=== PATIENT | male | born 1965 | race Caucasian/White ===

== ENCOUNTER → 2016-08-06 | Outpatient (CLI) | payer BC ==
--- NOTE | 2016-08-06 18:21 | Diagnostic Imaging Report ---
INDICATION: Low back pain with left leg numbness and involuntary movements of the left leg MRI lumbar spine obtained without IV contrast. There is no previous study for comparison. The lumbar vertebrae are normal in height and alignment. There is no space-occupying lesion in the marrow or evidence of marrow edema. The conus medullaris appears unremarkable. At L5-S1, there is no disc space narrowing or bulge or herniation or canal or neuroforaminal stenosis. At L4-5, there is some degree of facet degenerative change bilaterally. There is disc desiccation without significant disc bulge or herniation. There is mild neuroforaminal narrowing secondary to facet joint hypertrophy, more prominent on the left side. At L3-4, there is also disc desiccation without disc herniation or bulge or canal narrowing. There is mild facet degenerative change at L3-4 without significant neuroforaminal narrowing. At L2-3, there is also some degree of disc desiccation without disc herniation or bulge. There is no canal or neuroforaminal stenosis. At L1-2 and T12-L1, imaging is unremarkable. IMPRESSION: There is disc desiccation at multiple levels as above with no evidence of disc herniation or significant disc bulging. There is facet degenerative change most prominent at L4-5, this does cause some degree of neuroforaminal narrowing at L4-5, more prominent on the left. There are no other significant findings. Dictated by: Dictated on workstation # [id number]
== END ==
LOC: RAD 16:48
PROVIDERS: ATTEND Family Medicine
DX: M47.816 Spondylosis without myelopathy or radiculopathy, lumbar region (principal)
CPT/HCPCS: 72148

== ENCOUNTER → 2016-09-16 | Outpatient (CLI) | payer BC ==
[~2016-09-16] MED LIST: GADOBUTROL 15 MMOL/15 ML (GADAVIST) VIAL IV ONE
--- NOTE | 2016-09-16 17:01 | Diagnostic Imaging Report ---
PROCEDURE: MR imaging cervical spine without contrast. TECHNIQUE: Multiplanar, multisequence MR imaging of the cervical spine was performed without contrast. INDICATION: Neck pain, left arm numbness, abnormal neurological study. COMPARISON: I have no priors. FINDINGS: Cervical spinal cord has a normal volume, morphology, and normal signal intensity. There is straightening of cervical curvature without listhesis. There is no paravertebral mass, hemorrhage, or fluid collection. The C4-C5, C5-C6, and C6-C7 levels and discs showed mild desiccation and bulging posteriorly with endplate osteophytes. The findings result in mild degrees of stenosis of the canal at those disc space levels. No mass effect upon the cord. The neuroforamina appeared patent bilaterally throughout. No evidence for ligamentous injury. No acute epidural abnormality. No bone marrow edema. IMPRESSION: Mild [id number]-ywmvv cervical spondylosis with mild central canal stenosis. Normal cord. No acute osseous pathology. No high-grade canal stenosis and no obstruction of the neuroforamina. No acute-appearing abnormality. Dictated by: Dictated on workstation # [id number]
--- NOTE | 2016-09-16 17:55 | Diagnostic Imaging Report ---
PROCEDURE: MR imaging of the brain with and without contrast. TECHNIQUE: Multiplanar, multisequence MR imaging of the brain was performed with and without contrast. INDICATION: M47.12, left arm numbness, abnormal neurological testing. CONTRAST: 12 mL of Gadavist was given intravenously. FINDINGS: Exam demonstrates no areas of diffusion restriction. There is a persistent septum pellucidum et vergae which is a normal variant. Normal contrast enhancement is present. The pituitary gland and midline structures appear normal. No mass effect, midline shift, hemorrhage or extra-axial fluid collections are present. The globes appear normal. The flow voids appear unremarkable. Ventricles, cortical sulci and basilar cisterns are normal. No fluid is seen in the mastoid air cells or paranasal sinuses. IMPRESSION: Normal MRI of the brain with and without contrast. Dictated by: Dictated on workstation # [id number]
== END ==
LOC: RAD 15:57
PROVIDERS: ATTEND Pain Medicine Interventional Pain Medicine
DX: M47.12 Other spondylosis with myelopathy, cervical region (principal)
CPT/HCPCS: 70553; 72141

== ENCOUNTER → 2017-06-22 | Outpatient (CLI) | payer SELFPAY ==
--- NOTE | 2017-06-22 18:40 | Diagnostic Imaging Report ---
INDICATION: Mid back pain. COMPARISON: No prior MRI thoracic spine study is available for comparison. FINDINGS: Curvature and alignment of the thoracic spine is normal. The vertebral body marrow signal is normal. No geographic marrow lesion is seen. No acute compression fracture is identified. There is a very small right paramidline disc bulge at the T5-6 level. All other levels are unremarkable. No central canal stenosis is seen. Neural foramina appear patent. The thoracic spinal cord demonstrates homogeneous signal intensity and normal morphology. The paraspinous tissues are unremarkable. There is some mild generalized thoracic spondylosis with variable disc space narrowing and desiccation. IMPRESSION: Thoracic spondylosis with very small right paramidline disc bulge at T5-6 level. No central canal or neural foraminal stenosis is seen. No acute compression fracture is identified. Dictated by: Dictated on workstation # [id number]
== END ==
LOC: RAD 17:18
PROVIDERS: ATTEND Psychiatry & Neurology Neurology
DX: M47.14 Other spondylosis with myelopathy, thoracic region (principal); M51.14 Intervertebral disc disorders with radiculopathy, thoracic region
CPT/HCPCS: 72146

== ENCOUNTER 2018-01-11 16:53 | Emergency (ER) | payer MEDICAID, OTHER ==
[~2018-01-11] VITALS: Ht 167.6 cm; Wt 120.2 kg
--- OUTSIDE RECORDS SUMMARY | 2018-01-11 16:57 | XMS REPORT ---
Author Author ROSALINA GRAHAM Organization [facility] Address [address] [place] [address] Care Team Providers Care Entertainment Musician Name Role Phone ROSALINA GRAHAM Unavailable PROBLEMS Type Condition ICD9-CM Code FCN66-PQ Code Onset Dates Condition Status SNOMED Code Problem Muscle spasms of both lower extremities M62.838 Active 337279976 Problem Severe episode of recurrent major depressive disorder, without psychotic features F33.2 Active 09882249 Problem Reactive depression F32.9 Active 53053750 Problem Allergic state, initial encounter T78.40XA Active 811899727 Problem Essential hypertension I10 Active 11047612 Problem Dorsalgia, unspecified M54.9 Active 292300149 Problem Other chronic pain G89.29 Active 53047540 Problem Moderate persistent asthma without complication J45.40 Active 182740967 Problem Cervical disc disease with myelopathy M50.00 Active 87436147 Problem Falling R29.6 Active 319125794 Problem Generalized anxiety disorder F41.1 Active 30535216 Problem Panic disorder F41.0 Active 820824381 Problem PTSD (post-traumatic stress disorder) F43.10 Active 17091685 ALLERGIES No Information ENCOUNTERS Encounter Location Date Diagnosis [facility] [id number] [address] Jan, [facility] [address] [address] Dec, [facility] [id number] [place] [address] 0110 Dec, [facility] [id number] [place] [address] 15836- 7609 Dec, [facility] [id number] [address] Dec, Essential hypertension I10 [facility] [address], [place] [address] 14 Dec, 2017 [facility] [id number] [place] [address]- 3839 Dec, [facility] [id number] [place] [address] 28046- 6822 Dec, BMI 40.0-44.9, adult Z68.41 ; Severe episode of recurrent major depressive disorder, without psychotic features F33.2 ; PTSD (post- traumatic stress disorder) F43.10 [address] [facility] [id number] [place] [address] 86[address]- 3899 Dec, [facility] [id number] [place] [address] 94485- 6983 Dec, [facility] [id number] [place] [address] 85814- 3567 Dec, Essential hypertension I10 [facility] [id number] [place] [address] 59210- 3128 Dec, Severe episode of recurrent major depressive disorder, without psychotic features F33.2 [id number] [place] [address] 28504- 0353 Dec, Severe episode of recurrent major depressive disorder, without psychotic features F33.2 and Generalized anxiety disorder F41.1 [address] [address] Nov, Cervical disc disease with myelopathy M50.00 [facility] [address] [address] Nov, Cervical disc disease with myelopathy M50.00 ; Moderate persistent asthma without complication J45.40 and BMI 40.0-44.9, adult Z68.41 [facility] [address] [address] Nov, [facility] [id number] [address] Nov, [facility] [address] [address] Nov, [facility] [address] [address] Nov, [facility] [id number] [place] [address]382- 0921 Nov, [facility] [id number] [place] [address]390- 9357 Nov, [facility] [id number] [place] [address] 46243- 4092 Nov, [facility] [id number] [place] [address]86- 6559 Nov, [facility] [id number] [place] [address] 45971- 2906 Nov, [facility] [address] [address] Nov, Severe episode of recurrent major depressive disorder, without psychotic features F33.2 ; PTSD (post-traumatic stress disorder) F43.10 ; Panic disorder F41.0 and BMI 40.0-44.9, adult Z68.41 [facility] [address] [address] Nov, [facility] [address] [address] 8[address] Nov, Essential hypertension I10 [facility] [address], [place] [address] 7[address] Nov, Severe episode of recurrent major depressive disorder, without psychotic features F33.2 [facility] [address] [address] Nov, Acute pain of left knee M25.562 [facility] [id number] [place] [address] 02997- 1942 Nov, Severe episode of recurrent major depressive disorder, without psychotic features F33.2 ; PTSD (post-traumatic stress disorder) F43.10 ; Panic disorder F41.0 and BMI 40.0-44.9, adult Z68.41 [facility] [address] [address] Oct, [facility] [id number] [place] [address] 98528- 7934 Oct, [facility] [id number] [place] [address] 24858- 3440 Oct, [facility] [id number] [place] [address] 70123- 5645 Oct, [facility] [id number] [place] [address] 93449- 8074 Oct, Dorsalgia, unspecified M54.9 [facility] [id number] [place] [address] 44581- 4658 Oct, Severe episode of recurrent major depressive disorder, without psychotic features F33.2 and Generalized anxiety disorder F41.1 [facility] [address], [place] [address] Oct, [facility] [address] [address] Oct, [facility] [address] [place] [address] 78994- 2324 Oct, [facility] [address] [address] 6339 Oct, [facility] [id number] [place] [address] 65039- 2269 Oct, [facility] [address], [place] [address] Oct, [facility] [id number] [place] [address] 18966- 5576 Oct, [facility] [id number] [place] [address] 62980- 4986 Oct, [facility] [id number] [place] [address] 44388- 8978 Sep, Dorsalgia, unspecified M54.9 [facility] [id number] [place] [address] 88747- 1329 Sep, [facility] [id number] [place] [address] 04687- 7824 Sep, [facility] [id number] [place] [address] 12106- 7764 Sep, Falling R29.6 ; Essential hypertension I10 ; Chronic obstructive pulmonary disease, unspecified COPD type J44.9 and BMI 40.0-44.9, adult Z68.41 [facility] [id number] [place] [address] 58129- 1480 Sep, [facility] [id number] [place] [address] 78914- 5509 Sep, [facility] [id number] [place] [address] 48807- 3896 Sep, [facility] [id number] [place] [address] 23661- 4834 Sep, Mild intermittent asthma without complication J45.20 [facility] [id number] [place] [address] 80678- 7133 Sep, [facility] [id number] [place] [address] 80097- 5983 Sep, [facility] [id number] [place] [address] 59629- 9069 Sep, [facility] [id number] [place] [address] 99740- 4525 Sep, [facility] [id number], [place] [address] 3010 18 Sep, 2017 [facility] [id number] [place] [address] 70172- 9440 15 Sep, 2017 [facility] [id number] [place] [address] 24246- 9011 15 Sep, [address] [facility] [id number] [place] [address] 51202- 9805 15 Sep, 2017 [facility] [id number] [place] [address] 27556- 2746 15 Sep, 2017 [facility] [id number] [place] [address] 79134- 3297 15 Sep, 2017 [facility] [id number] [place] [address] 94664- 3372 14 Sep, 2017 [facility] [id number] [place] [address] 23192- 2424 14 Sep, 2017 [facility] [id number] [place] [address] 84942- 9704 14 Sep, 2017 [facility] [id number] [place] [address] 00983- 9538 13 Sep, 2017 [facility] [id number] [place] [address] 75435- 4563 13 Sep, 2017 [facility] [id number] [place] [address] 82265- 8653 13 Sep, 2017 [facility] [id number] [place] [address] 23858- 3856 12 Sep, 2017 [facility] [id number] [place] [address] 62157- 3933 05 Sep, 2017 Mild intermittent asthma without complication J45.20 [facility] [id number] [place] [address] 86004- 5616 August, Essential hypertension I10 [facility] [id number] [place] [address] 46128- 9031 August, BMI 40.0-44.9, adult Z68.41 ; Dorsalgia, unspecified M54.9 ; Allergic state, initial encounter T78.40XA ; Mild intermittent asthma without complication J45.20 and 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 [facility] [id number] [place] [address] 28116- 6072 August, [facility] [address] [address]- 7333 August, [facility] [id number] [place] [address] 41979- 5249 August, [facility] [address] 66758- 5095 August, Reactive depression F32.9 [facility] [id number] [place] [address] 49649- 1297 August, [facility] [id number] [place] [address] 80508- 5151 August, [facility] [id number] [place] [address] 49343- 4041 August, [facility] [id number] [place] [address] 70558- 3564 August, [facility] [id number] [place] [address] 52187- 6892 August, [facility] [id number] [place] [address] 74484- 7817 August, [facility] [id number] [place] [address] 58969- 2953 August, [facility] [id number] [place] [address] 29461- 6992 August, Muscle spasms of both lower extremities M62.838 ; Essential hypertension I10 and Reactive depression F32.9 [facility] [id number], [place] [address]60 August, [facility] [address], [place] [address]159 Jul, [facility] [id number] [place] [address] 31462- 5884 Jul, [facility] [id number] [place] [address] 27096- 6813 Jul, [facility] [id number] [place] [address] 69105- 9546 Jul, [facility] [id number] [place] [address] 47048- 9330 Jul, [facility] [id number] [place] [address] 40677- 1968 Jul, [facility] [id number] [place] [address] 20704- 2709 Jul, [facility] [id number] [place] [address] 03639- 6923 Jul, [facility] [id number] [place] [address] 44361- 6150 Jul, Essential hypertension I10 ; Other chronic pain G89.29 ; Dorsalgia, unspecified M54.9 ; Reactive depression F32.9 ; Mild intermittent asthma without complication J45.20 ; Allergic state, initial encounter T78.40XA and Muscle spasms of both lower extremities M62.838 IMMUNIZATIONS No Known Immunizations SOCIAL HISTORY Never Assessed REASON FOR VISIT Soma PLAN OF CARE VITAL SIGNS MEDICATIONS Medication Instructions Dosage Frequency Start Date End Date Duration Status Soma 350 MG Orally 3 times a day 1 tablet as needed 8h Nov, Active RESULTS No Results PROCEDURES No Known procedures INSTRUCTIONS MEDICATIONS ADMINISTERED No Known Medications MEDICAL (GENERAL) HISTORY Type Description Date Medical History essential hypertension Medical History chronic pain Medical History degenerative disc disease cervical, thoracic Medical History spinal stenosis Medical History numbness left side Medical History mild intermittent asthma Medical History COPD Medical History tinnitus Surgical History Right knee surgery 03/2017 Surgical History Right knee surgery 08/20/2017 Surgical History left shoulder repair Surgical History right foot surgery Surgical History Left knee 11/21/17 Hospitalization History childhood for pneumonia
--- OUTSIDE RECORDS SUMMARY | 2018-01-11 16:57 | XMS REPORT ---
Author Author LUCI RANGEL Organization [facility] Address [address] [place] [address] Care Team Providers Care Sales Representative Printing Name Role Phone RAFAELALINO RANGEL Unavailable PROBLEMS Type Condition ICD9-CM Code SID12-LB Code Onset Dates Condition Status SNOMED Code Problem Muscle spasms of both lower extremities M62.838 Active 290152223 Problem Severe episode of recurrent major depressive disorder, without psychotic features F33.2 Active 83467165 Problem Reactive depression F32.9 Active 02450239 Problem Allergic state, initial encounter T78.40XA Active 870826900 Problem Essential hypertension I10 Active 58110803 Problem Dorsalgia, unspecified M54.9 Active 159427570 Problem Other chronic pain G89.29 Active 78854552 Problem Moderate persistent asthma without complication J45.40 Active 451851369 Problem Cervical disc disease with myelopathy M50.00 Active 06440797 Problem Falling R29.6 Active 105942506 Problem Generalized anxiety disorder F41.1 Active 82773752 Problem Panic disorder F41.0 Active 502569520 Problem PTSD (post-traumatic stress disorder) F43.10 Active 02949640 ALLERGIES No Known Allergies ENCOUNTERS Encounter Location Date Diagnosis [facility] [id number] [address] Jan, [facility] [address] [address] 24 Dec, 2017 [facility] [id number] [place] [address] 88386- 1464 Dec, [facility] [address] [address] 19 Dec, 2017 Essential hypertension I10 [facility] [id number] [place] [address] 07653- 3563 Dec, [facility] [address] [address] Dec, [facility] [id number] [place] [address] 27610- 2228 Dec, BMI 40.0-44.9, adult Z68.41 ; Severe episode of recurrent major depressive disorder, without psychotic features F33.2 ; PTSD (post- traumatic stress disorder) F43.10 and Panic disorder F41.0 [facility] [id number] [place] [address] 81279- 8385 Dec, [facility] [id number] [place] [address] 87488- 5483 Dec, [facility] [id number] [place] [address] 99540- 8970 Dec, Essential hypertension I10 [address] [id number] [place] [address] 68058- 0761 Dec, Severe episode of recurrent major depressive disorder, without psychotic features F33.2 [place] [facility] [id number] [place] [address] 22275- 0981 Dec, Severe episode of recurrent major depressive disorder, without psychotic features F33.2 and Generalized anxiety disorder F41.1 [address] [id number] [place] [address] 35584- 6731 Nov, Cervical disc disease with myelopathy M50.00 [address] [place] [address] 90397- 3017 Nov, Cervical disc disease with myelopathy M50.00 ; Moderate persistent asthma without complication J45.40 and BMI 40.0-44.9, adult Z68.41 [address] [place] [address] [place] [address] 15664- 3750 Nov, [facility] [facility] [id number] [place] [address] 98316- 1684 Nov, [facility] [address] [address] Nov, [facility] [address] [address] 0790 Nov, [facility] [address] [address] 4[address] Nov, [facility] [id number] [place] [address] 65411- 3567 Nov, [facility] [id number] [place] [address] 32379- 4796 Nov, [facility] [id number] [place] [address] 43391- 1504 Nov, [facility] [id number] [place] [address] 98975- 1753 Nov, [facility] [id number] [place] [address] 43014- 3998 Nov, Severe episode of recurrent major depressive disorder, without psychotic features F33.2 ; PTSD (post-traumatic stress disorder) F43.10 ; Panic disorder F41.0 and BMI 40.0-44.9, adult Z68.41 [facility] [address] [address] Nov, [facility] [address] [address] 9368 Nov, Essential hypertension I10 [facility] [address] [address] Nov, Severe episode of recurrent major depressive disorder, without psychotic features F33.2 [facility] [id number] [place] [address] 50652- 3713 Nov, Acute pain of left knee M25.562 [facility] [address] [address] 3766 Nov, Severe episode of recurrent major depressive disorder, without psychotic features F33.2 ; PTSD (post-traumatic stress disorder) F43.10 ; Panic disorder F41.0 and BMI 40.0-44.9, adult Z68.41 [facility] [id number] [place] [address] 40827- 9566 Oct, [facility] [id number] [place] [address] 58376- 8332 Oct, [facility] [id number] [place] [address] 65049- 9855 Oct, [facility] [id number] [place] [address] 84371- 7693 Oct, [facility] [id number] [place] [address] 37553- 2860 Oct, Dorsalgia, unspecified M54.9 [facility] [id number] [place] [address] 71691- 1745 Oct, Severe episode of recurrent major depressive disorder, without psychotic features F33.2 and Generalized anxiety disorder F41.1 [facility] [id number] [address] 46[address] Oct, [facility] [id number] [place] [address] 93811- 6692 Oct, [facility] [address] [address] 6033 Oct, [facility] [id number] [address] 1513 Oct, [facility] [id number] [address] 0041 Oct, [facility] [id number] [place] [address] 43342- 0433 Oct, [facility] [id number] [address]- 3252 Oct, [facility] [id number] [place] [address] 94166- 3457 Oct, [facility] [id number] [place] [address] 39200- 7866 Sep, Dorsalgia, unspecified M54.9 [facility] [id number] [place] [address] 15293- 7600 Sep, [facility] [id number] [place] [address] 76819- 1087 Sep, [facility] [id number] [place] [address] 73646- 9161 Sep, Falling R29.6 ; Essential hypertension I10 ; Chronic obstructive pulmonary disease, unspecified COPD type J44.9 and BMI 40.0-44.9, adult Z68.41 [facility] [id number] [place] [address] 84175- 7646 Sep, [facility] [id number] [place] [address] 28517- 2135 Sep, [facility] [id number] [place] [address] 74636- 8887 Sep, [facility] [id number] [place] [address] 37904- 4239 Sep, Mild intermittent asthma without complication J45.20 [facility] [address] [address]- 5348 Sep, [facility] [id number] [place] [address] 96301- 2533 Sep, [facility] [id number] [place] [address] 22444- 6469 Sep, [facility] [id number] [place] [address] 87614- 6296 Sep, [facility] [address] [address]- 7362 Sep, [facility] [id number] [address]- 3918 15 Sep, 2017 [facility] [id number] [place] [address] 56100- 5905 15 Sep, 2017 Essential hypertension I10 [facility] [address] [address]- 7018 15 Sep, 2017 [facility] [id number] [place] [address] 05937- 0594 15 Sep, 2017 [facility] [address] [address]- 9566 15 Sep, 2017 [facility] [id number] [place] [address] 45279- 5102 14 Sep, 2017 [facility] [id number] [place] [address] 09151- 7938 14 Sep, 2017 [facility] [id number] [place] [address] 76762- 1921 14 Sep, 2017 [facility] [id number] [place] [address] 48285- 3703 13 Sep, 2017 [facility] [id number] [place] [address] 18594- 4240 Sep, [facility] [address] [address]- 9332 13 Sep, 2017 [facility] [address] [address]- 5042 Sep, [facility] [address] [address]- 8932 05 Sep, 2017 Mild intermittent asthma without complication J45.20 [facility] [address] [address]- 2794 August, Essential hypertension I10 [facility] [address] [address]- 3224 August, BMI 40.0-44.9, adult Z68.41 ; Dorsalgia, unspecified M54.9 ; Allergic state, initial encounter T78.40XA ; Mild intermittent asthma without complication J45.20 and 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 [facility] [id number] [place] [address] 88523- 0521 August, [facility] [id number] [place] [address] 75035- 7526 August, [facility] [id number] [place] [address] 01937- 8239 August, [facility] [id number] [place] [address] 14992- 6563 August, Reactive depression F32.9 [facility] [id number] [place] [address] 68766- 1811 August, [facility] [id number] [place] [address] 34686- 9203 August, [facility] [id number] [place] [address] 04818- 0165 August, [facility] [id number] [place] [address] 49766- 3690 August, [facility] [id number] [place] [address] 83014- 2178 August, [facility] [id number] [place] [address] 07696- 0617 August, [facility] [id number] [place] [address] 67710- 5849 August, [facility] [id number] [place] [address] 76545- 7926 August, Muscle spasms of both lower extremities M62.838 ; Essential hypertension I10 and Reactive depression F32.9 [facility] [id number] [place] [address] 41420- 8837 August, [facility] [address] [place] [address]- 4910 Jul, [facility] [address] [address]- 8744 Jul, [facility] [address] [address]- 6633 Jul, [facility] [address] [address]- 8708 Jul, [facility] [address] [address]- 2592 Jul, [facility] [address] [place] [address] 28714- 9434 Jul, [facility] [id number] [place] [address] 25968- 2804 Jul, [facility] [id number] [place] [address] 75138- 7986 Jul, [facility] [address] [address]- 4695 Jul, Essential hypertension I10 ; Other chronic pain G89.29 ; Dorsalgia, unspecified M54.9 ; Reactive depression F32.9 ; Mild intermittent asthma without complication J45.20 ; Allergic state, initial encounter T78.40XA and Muscle spasms of both lower extremities M62.838 IMMUNIZATIONS No Known Immunizations SOCIAL HISTORY Never Assessed REASON FOR VISIT [facility] PLAN OF C[facility] Activity Details Follow Up 3 Weeks Reason: VITAL SIGNS Height 66 in 2017-12-01 Weight 262.7 lbs 2017-12-01 Heart Rate 64 bpm 2017-12-01 Respiratory Rate 20 2017-12-01 Oximetry 95 % 2017-12-01 BMI 42.40 kg/m2 2017-12-01 Blood pressure systolic 128 mmHg 2017-12-01 Blood pressure diastolic 72 mmHg 2017-12-01 MEDICATIONS Medication Instructions Dosage Frequency Start Date End Date Duration Status Xanax XR 0.5 MG Orally Once a day 1 tablet in the morning 24h Active Zoloft 100 MG Orally Once a day 2 tablet 24h Active Gabapentin 300 MG Orally twice a day 1 capsule 12h Active Atenolol 50 MG Orally Once a day 1 tablet 24h Active Lovastatin 40 mg Orally Once a day 1 tablet with the evening meal 24h Jul, Active Losartan Potassium 100 mg Orally Once a day 1 tablet 24h Active Breo Ellipta 100-25 MCG/INH Inhalation Once a day 1 puff 24h Sep, Active Singulair 10 mg Orally Once a day 1 tablet 24h Active Allergy 12 MG Orally every 12 hrs 1 tablet as needed 12h Active Baclofen 10 mg Orally Three times a day 1 tablet with food or milk 8h Oct, 30 day(s) Active ProAir HFA 108 (90 Base) MCG/ACT Inhalation every 6 hrs 2 puffs as needed 6h Sep, Active RESULTS No Results PROCEDURES No Known [...]
--- OUTSIDE RECORDS SUMMARY | 2018-01-11 16:58 | XMS REPORT ---
Author Author RITIKA OLIVER [facility] Address [address] [place] [address] Care Team Providers Care Support Dba Name Role Phone RITIKA OLIVER Unavailable PROBLEMS Type Condition ICD9-CM Code [id number] Code Onset Dates Condition Status SNOMED Code Problem Muscle spasms of both lower extremities M62.838 Active 766571733 Problem Severe episode of recurrent major depressive disorder, without psychotic features F33.2 Active 15316092 Problem Reactive depression F32.9 Active 65728761 Problem Allergic state, initial encounter T78.40XA Active 385976962 Problem Essential hypertension I10 Active 63470217 Problem Dorsalgia, unspecified M54.9 Active 691715381 Problem Other chronic pain G89.29 Active 03468616 Problem Moderate persistent asthma without complication J45.40 Active 507166734 Problem Cervical disc disease with myelopathy M50.00 Active 79354568 Problem Falling R29.6 Active 073762579 Problem Generalized anxiety disorder F41.1 Active 61018235 Problem Panic disorder F41.0 Active 287394625 Problem PTSD (post-traumatic stress disorder) F43.10 Active 55140243 ALLERGIES No Information ENCOUNTERS Encounter Location Date Diagnosis [facility] [id number], [place] [address] Jan, [facility] [address], [place] [address] 24 Dec, 2017 [facility] [address] [address] 92179- 7793 Dec, [facility] [address] [place] [address] 17945- 0756 19 Dec, 2017 Essential hypertension I10 [facility] [address] [place] [address] 82232- 8306 Dec, [facility] [address], [place] [address] Dec, [facility] [id number] [address] 60665- 8669 Dec, BMI 40.0-44.9, adult Z68.41 ; Severe episode of recurrent major depressive disorder, without psychotic features F33.2 ; PTSD (post- traumatic stress disorder) F43.10 and Panic disorder F41.0 [facility] [id number] [place] [address] 26288- 4246 Dec, [facility] [id number] [place] [address] 05505- 6467 Dec, [facility] [id number] [place] [address] 77161- 2792 Dec, Essential hypertension I10 [id number] [place] [address] 86482- 3638 Dec, Severe episode of recurrent major depressive disorder, without psychotic features F33.2 [id number] [place] [address] 09404- 3643 Dec, Severe episode of recurrent major depressive disorder, without psychotic features F33.2 and Generalized anxiety disorder F41.1 [address] [address] 78174- 8623 Nov, Cervical disc disease with myelopathy M50.00 [address] [place] [address] 74522- 3383 Nov, Cervical disc disease with myelopathy M50.00 ; Moderate persistent asthma without complication J45.40 and BMI 40.0-44.9, adult Z68.41 [address] [place] [address] 37542- 6005 Nov, [address], [place] [address]37 Nov, [address], [place] [address] 9[address] Nov, [facility] [address], [place] [address] 6702 Nov, [facility] [address], [place] [address] 8993 Nov, [facility] [address] [address] 55562- 4736 Nov, [facility] [id number] [place] [address] 89002- 3989 Nov, [facility] [id number] [address] 65320- 9615 Nov, [facility] [id number] [address] 55539- 2565 Nov, [facility] [id number] [place] [address] 35995- 6819 Nov, Severe episode of recurrent major depressive disorder, without psychotic features F33.2 ; PTSD (post-traumatic stress disorder) F43.10 ; Panic disorder F41.0 and BMI 40.0-44.9, adult Z68.41 [facility] [address], [place] [address] 5147 Nov, [facility] [address], [place] [address] 5367 Nov, Essential hypertension I10 [facility] [address], [place] [address] 3205 Nov, Severe episode of recurrent major depressive disorder, without psychotic features F33.2 [facility] [address] [address] 02561- 8664 Nov, Acute pain of left knee M25.562 [facility] [address], [place] [address] 9069 Nov, Severe episode of recurrent major depressive disorder, without psychotic features F33.2 ; PTSD (post-traumatic stress disorder) F43.10 ; Panic disorder F41.0 and BMI 40.0-44.9, adult Z68.41 [facility] [id number] [address] 63618- 4826 Oct, [facility] [id number] [place] [address] 97566- 2366 Oct, [facility] [id number] [place] [address] 03413- 0576 Oct, [facility] [id number] [place] [address] 41562- 6823 Oct, [facility] [id number] [place] [address] 34994- 0285 Oct, Dorsalgia, unspecified M54.9 [facility] [id number] [address] 03507- 4336 Oct, Severe episode of recurrent major depressive disorder, without psychotic features F33.2 and Generalized anxiety disorder F41.1 [facility] [id number] [address] 45538- 6529 Oct, [facility] [id number] [address] 58069- 9041 Oct, [facility] [address], [place] [address]- 5491 Oct, [facility] [id number] [address] 75108- 0029 Oct, [facility] [address] [place] [address] 83854- 6472 Oct, [facility] [id number] [place] [address] 54607- 7180 Oct, [facility] [address] [place] [address] 49066- 9507 Oct, [facility] [id number] [place] [address] 03245- 5059 Oct, [facility] [id number] [address] 94107- 3540 Sep, Dorsalgia, unspecified M54.9 [facility] [id number] [place] [address] 84471- 0661 Sep, [facility] [id number] [place] [address] 73578- 7668 Sep, [facility] [id number] [place] [address] 30941- 7221 Sep, Falling R29.6 ; Essential hypertension I10 ; Chronic obstructive pulmonary disease, unspecified COPD type J44.9 and BMI 40.0-44.9, adult Z68.41 [facility] [id number] [address] 85278- 8781 Sep, [facility] [id number] [place] [address] 76578- 1424 Sep, [facility] [id number] [place] [address] 93175- 2315 Sep, [facility] [id number] [place] [address] 62860- 9109 Sep, Mild intermittent asthma without complication J45.20 [facility] [id number] [place] [address] 63451- 0503 Sep, [facility] [id number] [place] [address] 94648- 4983 Sep, [facility] [id number] [place] [address] 90585- 0330 Sep, [facility] [id number] [place] [address] 00528- 7831 Sep, [facility] [id number] [address] 42693- 4717 Sep, [facility] [address], [place] [address]- 3803 15 Sep, 2017 [facility] [address] [address] 82133- 3614 15 Sep, 2017 Essential hypertension I10 [facility] [address], [place] [address]- 9117 15 Sep, 2017 [facility] [address] [place] [address] 97634- 8670 15 Sep, 2017 [facility] [address], [place] [address]- 6364 15 Sep, 2017 [facility] [id number] [address] 60605- 6946 14 Sep, 2017 [facility] [address], [place] [address]- 7364 14 Sep, 2017 [facility] [address] [place] [address] 77072- 8779 14 Sep, 2017 [facility] [address], [place] [address]- 5499 13 Sep, 2017 [facility] [address] [place] [address] 83798- 9064 13 Sep, 2017 [facility] [address], [place] [address]- 2623 13 Sep, 2017 [facility] [address] [place] [address] 43523- 3538 Sep, [facility] [address], [place] [address]- 2339 05 Sep, 2017 Mild intermittent asthma without complication J45.20 [facility] [address], [place] [address]- 4456 August, Essential hypertension I10 [facility] [address], [place] [address]- 7715 August, BMI 40.0-44.9, adult Z68.41 ; Dorsalgia, unspecified M54.9 ; Allergic state, initial encounter T78.40XA ; Mild intermittent asthma without complication J45.20 and 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 [facility] [id number] [place] [address] 52101- 0526 August, [facility] [id number] [place] [address] 80071- 3978 August, [facility] [address] 93378- 4748 August, [facility] [id number] [place] [address] 97220- 4935 August, Reactive depression F32.9 [facility] [id number] [address] 93442- 5922 August, [facility] [id number] [address] 99319- 2637 August, [facility] [id number] [address] 94887- 7856 August, [facility] [id number] [place] [address] 41065- 8151 August, [facility] [id number] [place] [address] 60147- 3799 August, [facility] [id number] [address] 40212- 7258 August, [facility] [id number] [place] [address] 92017- 1798 August, [facility] [id number] [place] [address] 84541- 5451 August, Muscle spasms of both lower extremities M62.838 ; Essential hypertension I10 and Reactive depression F32.9 [facility] [id number] [place] [address] 27259- 0086 August, [facility] [address] [place] [address]- 2775 Jul, [facility] [address], [place] [address]- 5626 Jul, [facility] [address], [place] [address]- 6865 Jul, [facility] [address], [place] [address]- 9571 Jul, [facility] [address], [place] [address]- 9922 Jul, [facility] [address] [place] [address] 96247- 7715 Jul, [facility] [address], [place] [address]- 0753 Jul, [facility] [address], [place] [address]- 5771 Jul, [facility] [address], [place] [address]- 5740 Jul, Essential hypertension I10 ; Other chronic pain G89.29 ; Dorsalgia, unspecified M54.9 ; Reactive depression F32.9 ; Mild intermittent asthma without complication J45.20 ; Allergic state, initial encounter T78.40XA and Muscle spasms of both lower extremities M62.838 IMMUNIZATIONS No Known Immunizations SOCIAL HISTORY Never Assessed REASON FOR VISIT Update Demographics - Personal Info PLAN OF CARE VITAL SIGNS MEDICATIONS Unknown Medications RESULTS No Results PROCEDURES No Known procedures [...]
--- OUTSIDE RECORDS SUMMARY | 2018-01-11 16:58 | XMS REPORT ---
Author Author LUCI RANGEL Organization [facility] Address [address] [place] [address] Care Team Providers Care Decorating Machine Tender Name Role Phone RAFAELALINO RANGEL Unavailable PROBLEMS Type Condition ICD9-CM Code [id number] Code Onset Dates Condition Status SNOMED Code Problem Muscle spasms of both lower extremities M62.838 Active 837585659 Problem Severe episode of recurrent major depressive disorder, without psychotic features F33.2 Active 46235970 Problem Reactive depression F32.9 Active 69743313 Problem Allergic state, initial encounter T78.40XA Active 510610285 Problem Essential hypertension I10 Active 39901603 Problem Dorsalgia, unspecified M54.9 Active 603964538 Problem Other chronic pain G89.29 Active 50721014 Problem Moderate persistent asthma without complication J45.40 Active 650619483 Problem Cervical disc disease with myelopathy M50.00 Active 00425013 Problem Falling R29.6 Active 329793824 Problem Generalized anxiety disorder F41.1 Active 55398676 Problem Panic disorder F41.0 Active 851208962 Problem PTSD (post-traumatic stress disorder) F43.10 Active 69026432 ALLERGIES No Information ENCOUNTERS Encounter Location Date Diagnosis [facility] [id number] [address] Jan, [facility] [id number] [place] [address] 60028- 8276 24 Dec, 2017 [facility] [id number] [place] [address] 79258- 0613 Dec, [facility] [id number] [place] [address] 88579- 4583 19 Dec, 2017 Essential hypertension I10 [facility] [id number] [place] [address] 78856- 4744 Dec, [facility] [id number] [address] Dec, [facility] [id number] [place] [address] 73956- 4046 Dec, BMI 40.0-44.9, adult Z68.41 ; Severe episode of recurrent major depressive disorder, without psychotic features F33.2 ; PTSD (post- traumatic stress disorder) F43.10 and Panic disorder F41.0 [facility] [id number] [place] [address] 94630- 6718 Dec, [facility] [id number] [place] [address] 82301- 8368 Dec, [facility] [id number] [place] [address] 18086- 0615 Dec, Essential hypertension I10 [id number] [place] [address] 72047- 2889 Dec, Severe episode of recurrent major depressive disorder, without psychotic features F33.2 [facility] [facility] [id number] [place] [address] 90922- 7272 Dec, Severe episode of recurrent major depressive disorder, without psychotic features F33.2 and Generalized anxiety disorder F41.1 [id number] [place] [address] 50694- 4936 Nov, Cervical disc disease with myelopathy M50.00 [id number] [place] [address] 30118- 1261 Nov, Cervical disc disease with myelopathy M50.00 ; Moderate persistent asthma without complication J45.40 and BMI 40.0-44.9, adult Z68.41 [id number] [place] [address] 59558- 4452 Nov, [address] [facility] [id number] [address] 47[address] Nov, [facility] [id number] [address] Nov, [facility] [id number], [place] [address] Nov, [facility] [id number] [address] 5679 Nov, [facility] [id number] [place] [address] 06908- 4528 Nov, [facility] [id number] [place] [address] 63276- 1187 Nov, [facility] [id number] [place] [address] 20462- 9697 Nov, [facility] [id number] [place] [address] 45278- 2968 Nov, [facility] [id number] [place] [address] 94856- 4699 Nov, Severe episode of recurrent major depressive disorder, without psychotic features F33.2 ; PTSD (post-traumatic stress disorder) F43.10 ; Panic disorder F41.0 and BMI 40.0-44.9, adult Z68.41 [facility] [address] [address] 7448 Nov, [facility] [id number] [address] 9373 Nov, Essential hypertension I10 [facility] [id number] [address] 0970 Nov, Severe episode of recurrent major depressive disorder, without psychotic features F33.2 [facility] [id number] [place] [address] 56863- 5699 Nov, Acute pain of left knee M25.562 [facility] [address] [address] 7793 Nov, Severe episode of recurrent major depressive disorder, without psychotic features F33.2 ; PTSD (post-traumatic stress disorder) F43.10 ; Panic disorder F41.0 and BMI 40.0-44.9, adult Z68.41 [facility] [id number] [place] [address] 28107- 5349 Oct, [facility] [id number] [place] [address] 37494- 0476 Oct, [facility] [id number] [place] [address] 75410- 0731 Oct, [facility] [id number] [place] [address] 60075- 6445 Oct, [facility] [id number] [place] [address] 52197- 4182 Oct, Dorsalgia, unspecified M54.9 [facility] [id number] [place] [address] 69989- 3725 Oct, Severe episode of recurrent major depressive disorder, without psychotic features F33.2 and Generalized anxiety disorder F41.1 [facility] [id number] [place] [address] 36216- 8309 Oct, [facility] [id number] [place] [address] 13742- 4132 Oct, [facility] [address] [address] 2181 Oct, [facility] [id number] [place] [address] 60282- 9232 Oct, [facility] [id number] [place] [address] 84333- 7206 Oct, [facility] [id number] [place] [address] 65063- 3325 Oct, [facility] [id number] [place] [address] 33060- 9447 Oct, [facility] [id number] [place] [address] 74216- 7676 Oct, [facility] [id number] [place] [address] 13679- 1848 Sep, Dorsalgia, unspecified M54.9 [facility] [id number] [place] [address] 63269- 5224 Sep, [facility] [id number] [place] [address] 65409- 9749 Sep, [facility] [id number] [place] [address] 24655- 6812 Sep, Falling R29.6 ; Essential hypertension I10 ; Chronic obstructive pulmonary disease, unspecified COPD type J44.9 and BMI 40.0-44.9, adult Z68.41 [facility] [id number] [place] [address] 65134- 4580 Sep, [facility] [id number] [place] [address] 18742- 1028 Sep, [facility] [id number] [place] [address] 85550- 2630 Sep, [facility] [id number] [place] [address] 57810- 6522 Sep, Mild intermittent asthma without complication J45.20 [facility] [id number] [place] [address] 99616- 8289 Sep, [facility] [id number] [place] [address] 71973- 1035 Sep, [facility] [id number] [place] [address] 28473- 4116 Sep, [facility] [id number] [place] [address] 21000- 4169 Sep, [facility] [id number] [place] [address] 45699- 2920 Sep, [facility] [address] [address] 7217 15 Sep, 2017 [facility] [id number] [place] [address] 72424- 1495 15 Sep, 2017 Essential hypertension I10 [facility] [address], [place] [address]- 5600 15 Sep, 2017 [facility] [id number] [place] [address] 45027- 8641 15 Sep, 2017 [facility] [address] [address]- 0400 15 Sep, 2017 [facility] [id number] [place] [address] 99184- 4488 14 Sep, 2017 [facility] [address], [place] [address]- 1914 14 Sep, 2017 [facility] [id number] [place] [address] 58785- 7990 14 Sep, 2017 [facility] [address] [address]- 3715 13 Sep, 2017 [facility] [id number] [place] [address] 92713- 2534 13 Sep, 2017 [facility] [address], [place] [address]- 4962 13 Sep, 2017 [facility] [id number] [place] [address] 47383- 5186 Sep, [facility] [address] [address]- 0094 05 Sep, 2017 Mild intermittent asthma without complication J45.20 [facility] [address] [address]- 6369 August, Essential hypertension I10 [facility] [address], [place] [address]- 4015 August, BMI 40.0-44.9, adult Z68.41 ; Dorsalgia, unspecified M54.9 ; Allergic state, initial encounter T78.40XA ; Mild intermittent asthma without complication J45.20 and 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 [facility] [id number] [place] [address] 49614- 3179 August, [facility] [id number] [place] [address] 26710- 2606 August, [facility] [address] 75017- 9122 August, [facility] [id number] [place] [address] 09029- 4017 August, Reactive depression F32.9 [facility] [id number] [place] [address] 66848- 3951 August, [facility] [id number] [place] [address] 00762- 4024 August, [facility] [id number] [place] [address] 97815- 6750 August, [facility] [id number] [place] [address] 06079- 0639 August, [facility] [id number] [place] [address] 95457- 1587 August, [facility] [id number] [place] [address] 12738- 8259 August, [facility] [id number] [place] [address] 08332- 9965 August, [facility] [id number] [place] [address] 24930- 5697 August, Muscle spasms of both lower extremities M62.838 ; Essential hypertension I10 and Reactive depression F32.9 [facility] [id number] [place] [address] 42848- 8127 August, [facility] [address] [place] [address]- 7649 Jul, [facility] [address] [address]- 0357 Jul, [facility] [id number], [place] [address]- 0097 Jul, [facility] [id number] [address]- 9367 Jul, [facility] [id number] [address]- 2448 Jul, [facility] [id number] [place] [address] 98026- 3737 Jul, [facility] [id number] [address]- 2849 Jul, [facility] [id number], [place] [address]- 1288 Jul, [facility] [address] [address]- 5452 Jul, Essential hypertension I10 ; Other chronic pain G89.29 ; Dorsalgia, unspecified M54.9 ; Reactive depression F32.9 ; Mild intermittent asthma without complication J45.20 ; Allergic state, initial encounter T78.40XA and Muscle spasms of both lower extremities M62.838 IMMUNIZATIONS No Known Immunizations SOCIAL HISTORY Never Assessed REASON FOR VISIT Re:RE:Information PLAN OF CARE VITAL SIGNS MEDICATIONS Unknown [...]
--- OUTSIDE RECORDS SUMMARY | 2018-01-11 16:58 | XMS REPORT ---
Author Author LUCI RANGEL Organization [facility] Address [address] [place] [address] Care Team Providers Care Director E Learning Name Role Phone RAFAELALINO RANGEL Unavailable PROBLEMS Type Condition ICD9-CM Code GFE70-JS Code Onset Dates Condition Status SNOMED Code Problem Muscle spasms of both lower extremities M62.838 Active 915861182 Problem Severe episode of recurrent major depressive disorder, without psychotic features F33.2 Active 39130439 Problem Reactive depression F32.9 Active 15893443 Problem Allergic state, initial encounter T78.40XA Active 849221383 Problem Essential hypertension I10 Active 14705397 Problem Dorsalgia, unspecified M54.9 Active 357134086 Problem Other chronic pain G89.29 Active 29005391 Problem Moderate persistent asthma without complication J45.40 Active 538030072 Problem Cervical disc disease with myelopathy M50.00 Active 69293987 Problem Falling R29.6 Active 514634363 Problem Generalized anxiety disorder F41.1 Active 63670568 Problem Panic disorder F41.0 Active 403438293 Problem PTSD (post-traumatic stress disorder) F43.10 Active 30303422 ALLERGIES No Information ENCOUNTERS Encounter Location Date Diagnosis [facility] [id number] [address] Jan, [facility] [id number] [place] [address] 12689- 5225 24 Dec, 2017 [facility] [id number] [place] [address] 53246- 0924 Dec, [facility] [id number] [place] [address] 45262- 5778 19 Dec, 2017 Essential hypertension I10 [facility] [id number] [place] [address] 06430- 4022 Dec, [facility] [address] [address] Dec, [facility] [id number] [place] [address] 34622- 3809 Dec, BMI 40.0-44.9, adult Z68.41 ; Severe episode of recurrent major depressive disorder, without psychotic features F33.2 ; PTSD (post- traumatic stress disorder) F43.10 and Panic disorder F41.0 [facility] [id number] [place] [address] 10505- 5787 Dec, [facility] [id number] [place] [address] 37524- 1450 Dec, [facility] [id number] [place] [address] 20131- 3490 Dec, Essential hypertension I10 [facility] [id number] [place] [address] 84386- 8634 Dec, Severe episode of recurrent major depressive disorder, without psychotic features F33.2 [facility] [id number] [place] [address] 81792- 8057 Dec, Severe episode of recurrent major depressive disorder, without psychotic features F33.2 and Generalized anxiety disorder F41.1 [facility] [id number] [place] [address] 64540- 8780 Nov, Cervical disc disease with myelopathy M50.00 [facility] [id number] [place] [address] 77745- 6775 Nov, Cervical disc disease with myelopathy M50.00 ; Moderate persistent asthma without complication J45.40 and BMI 40.0-44.9, adult Z68.41 [facility] [id number] [place] [address] 00142- 5074 Nov, [facility] [address] [address] 8386 Nov, [facility] [id number] [address] Nov, [facility] [address], [place] [address] 7589 Nov, [facility] [address], [place] [address] 2239 Nov, [facility] [id number] [place] [address] 58884- 3827 Nov, [facility] [id number] [place] [address] 59475- 6725 Nov, [facility] [id number] [place] [address] 57919- 5238 Nov, [facility] [id number] [place] [address] 82387- 0842 Nov, [facility] [id number] [place] [address] 22966- 1800 Nov, Severe episode of recurrent major depressive disorder, without psychotic features F33.2 ; PTSD (post-traumatic stress disorder) F43.10 ; Panic disorder F41.0 and BMI 40.0-44.9, adult Z68.41 [facility] [address], [place] [address] 47[address] Nov, [facility] [address] [address] 0662 Nov, Essential hypertension I10 [facility] [address], [place] [address] 7044 Nov, Severe episode of recurrent major depressive disorder, without psychotic features F33.2 [facility] [id number] [place] [address] 03322- 9219 Nov, Acute pain of left knee M25.562 [facility] [address] [address] 9558 Nov, Severe episode of recurrent major depressive disorder, without psychotic features F33.2 ; PTSD (post-traumatic stress disorder) F43.10 ; Panic disorder F41.0 and BMI 40.0-44.9, adult Z68.41 [facility] [id number] [place] [address] 70416- 0836 Oct, [facility] [id number] [place] [address] 84358- 1373 Oct, [facility] [id number] [place] [address] 27992- 6353 Oct, [facility] [id number] [place] [address] 71124- 0008 Oct, [facility] [id number] [place] [address] 93194- 7242 Oct, Dorsalgia, unspecified M54.9 [facility] [id number] [place] [address] 27878- 4830 Oct, Severe episode of recurrent major depressive disorder, without psychotic features F33.2 and Generalized anxiety disorder F41.1 [facility] [id number] [place] [address] 67861- 9879 Oct, [facility] [id number] [place] [address] 56982- 3248 Oct, [facility] [address] [address] 0289 Oct, [facility] [id number] [place] [address] 43421- 5535 Oct, [facility] [address] [place] [address] 23778- 7720 Oct, [facility] [id number] [place] [address] 33767- 4528 Oct, [facility] [id number] [place] [address] 67728- 1827 Oct, [facility] [id number] [place] [address] 52436- 5016 Oct, [facility] [id number] [place] [address] 54882- 4525 Sep, Dorsalgia, unspecified M54.9 [facility] [id number] [place] [address] 21858- 4095 Sep, [facility] [id number] [place] [address] 87928- 3361 Sep, [facility] [id number] [place] [address] 84601- 1852 Sep, Falling R29.6 ; Essential hypertension I10 ; Chronic obstructive pulmonary disease, unspecified COPD type J44.9 and BMI 40.0-44.9, adult Z68.41 [facility] [id number] [place] [address] 11603- 5354 Sep, [facility] [id number] [place] [address] 28848- 6560 Sep, [facility] [id number] [place] [address] 60219- 3133 Sep, [facility] [id number] [place] [address] 55275- 5051 Sep, Mild intermittent asthma without complication J45.20 [facility] [id number] [place] [address] 14111- 7595 Sep, [facility] [id number] [place] [address] 18302- 0193 Sep, [facility] [id number] [place] [address] 55006- 1820 Sep, [facility] [id number] [place] [address] 74417- 2225 Sep, [facility] [id number] [place] [address] 59858- 2165 Sep, [facility] [address] [place] [address]- 3273 15 Sep, 2017 [facility] [id number] [place] [address] 42116- 4609 15 Sep, 2017 Essential hypertension I10 [facility] [address], [place] [address]- 4606 15 Sep, 2017 [facility] [id number] [place] [address] 59822- 5744 15 Sep, 2017 [facility] [address] [place] [address]- 8894 15 Sep, 2017 [facility] [id number] [place] [address] 40080- 7035 14 Sep, 2017 [facility] [address] [place] [address]- 8159 14 Sep, 2017 [facility] [id number] [place] [address] 30150- 4151 14 Sep, 2017 [facility] [address] [place] [address]- 9302 13 Sep, 2017 [facility] [id number] [place] [address] 39190- 3741 13 Sep, 2017 [facility] [address] [place] [address]- 2236 13 Sep, 2017 [facility] [address] [place] [address] 54135- 5567 Sep, [facility] [address], [place] [address]- 7659 05 Sep, 2017 Mild intermittent asthma without complication J45.20 [facility] [address] [address]- 7618 August, Essential hypertension I10 [facility] [address] [place] [address]- 1709 August, BMI 40.0-44.9, adult Z68.41 ; Dorsalgia, unspecified M54.9 ; Allergic state, initial encounter T78.40XA ; Mild intermittent asthma without complication J45.20 and 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 [facility] [id number] [place] [address] 28447- 7331 August, [facility] [id number] [place] [address] 75822- 2194 August, [facility] [address] 71795- 1474 August, [facility] [id number] [place] [address] 04674- 6528 August, Reactive depression F32.9 [facility] [id number] [place] [address] 81604- 3420 August, [facility] [id number] [place] [address] 85370- 4988 August, [facility] [id number] [place] [address] 07142- 6199 August, [facility] [id number] [place] [address] 29095- 8239 August, [facility] [id number] [place] [address] 87651- 9443 August, [facility] [id number] [place] [address] 01729- 0463 August, [facility] [id number] [place] [address] 21591- 2936 August, [facility] [id number] [place] [address] 63946- 5043 August, Muscle spasms of both lower extremities M62.838 ; Essential hypertension I10 and Reactive depression F32.9 [facility] [id number] [place] [address] 96532- 6815 August, [facility] [address] [place] [address]- 8807 Jul, [facility] [address] [place] [address]- 3932 Jul, [facility] [address] [place] [address]- 0519 Jul, [facility] [address] [place] [address]- 7978 Jul, [facility] [address] [place] [address]- 1498 Jul, [facility] [id number] [place] [address] 26401- 8164 Jul, [facility] [address] [place] [address]- 0827 Jul, [facility] [id number] [place] [address] 77374- 3540 Jul, [facility] [address] [place] [address]- 3913 Jul, Essential hypertension I10 ; Other chronic pain G89.29 ; Dorsalgia, unspecified M54.9 ; Reactive depression F32.9 ; Mild intermittent asthma without complication J45.20 ; Allergic state, initial encounter T78.40XA and Muscle spasms of both lower extremities M62.838 IMMUNIZATIONS No Known Immunizations SOCIAL HISTORY Never Assessed REASON FOR VISIT Information PLAN OF CARE VITAL SIGNS MEDICATIONS Unknown [...]
--- OUTSIDE RECORDS SUMMARY | 2018-01-11 16:58 | XMS REPORT ---
Author Author ROSALINA GRAHAM Organization [facility] Address [address] [place] [address] Care Team Providers Care Planograph Operator Name Role Phone ROSALINA GRAHAM Unavailable PROBLEMS Type Condition ICD9-CM Code [id number] Code Onset Dates Condition Status SNOMED Code Problem Muscle spasms of both lower extremities M62.838 Active 930758206 Problem Severe episode of recurrent major depressive disorder, without psychotic features F33.2 Active 76432864 Problem Reactive depression F32.9 Active 70281016 Problem Allergic state, initial encounter T78.40XA Active 933369405 Problem Essential hypertension I10 Active 42913326 Problem Dorsalgia, unspecified M54.9 Active 981183317 Problem Other chronic pain G89.29 Active 92374248 Problem Moderate persistent asthma without complication J45.40 Active 284544855 Problem Cervical disc disease with myelopathy M50.00 Active 33608617 Problem Falling R29.6 Active 213395976 Problem Generalized anxiety disorder F41.1 Active 34942012 Problem Panic disorder F41.0 Active 820418118 Problem PTSD (post-traumatic stress disorder) F43.10 Active 89311324 ALLERGIES No Information ENCOUNTERS Encounter Location Date Diagnosis [facility] [address] [address] Jan, [facility] [address] [address] 24 Dec, 2017 [facility] [id number] [place] [address] 92504- 2148 Dec, [facility] [id number] [place] [address] 88730- 8235 Dec, [facility] [id number] [place] [address] 16679- 4366 14 Dec, 2017 [facility] [id number] [place] [address] 42249- 7298 Dec, [facility] [id number] [place] [address] 05919- 2795 Dec, BMI 40.0-44.9, adult Z68.41 ; Severe episode of recurrent major depressive disorder, without psychotic features F33.2 ; PTSD (post- traumatic stress disorder) F43.10 and Panic disorder F41.0 [facility] [id number] [place] [address] 61791- 6098 Dec, [facility] [id number] [place] [address] 90128- 4010 Dec, [facility] [id number] [place] [address] 47610- 6818 Dec, Essential hypertension I10 [facility] [id number] [place] [address] 39019- 9824 Dec, Severe episode of recurrent major depressive disorder, without psychotic features F33.2 [facility] [id number] [place] [address] 60786- 1614 Dec, Severe episode of recurrent major depressive disorder, without psychotic features F33.2 and Generalized anxiety disorder F41.1 [facility] [id number] [place] [address] 94848- 3782 Nov, Cervical disc disease with myelopathy M50.00 [facility] [id number] [place] [address] 90944- 2812 Nov, Cervical disc disease with myelopathy M50.00 ; Moderate persistent asthma without complication J45.40 and BMI 40.0-44.9, adult Z68.41 [facility] [id number] [place] [address] 53937- 2641 Nov, [facility] [id number] [place] [address] 44365- 9971 Nov, [facility] [id number] [address] Nov, [facility] [id number] [place] [address] 55899- 5486 Nov, [facility] [id number] [place] [address] 71145- 7535 Nov, [facility] [id number] [place] [address] 80134- 6669 Nov, [facility] [id number] [place] [address] 11111- 4340 Nov, [facility] [id number] [place] [address] 47901- 4131 Nov, [facility] [id number] [place] [address] 09797- 9973 Nov, [facility] [id number] [place] [address] 33611- 9651 Nov, Severe episode of recurrent major depressive disorder, without psychotic features F33.2 ; PTSD (post-traumatic stress disorder) F43.10 ; Panic disorder F41.0 and BMI 40.0-44.9, adult Z68.41 [facility] [id number] [place] [address] 20863- 5571 Nov, [facility] [id number] [place] [address] 93851- 2879 Nov, Essential hypertension I10 [facility] [id number] [place] [address] 28937- 7981 Nov, Severe episode of recurrent major depressive disorder, without psychotic features F33.2 [facility] [id number] [place] [address] 66321- 0464 Nov, Acute pain of left knee M25.562 [facility] [id number] [place] [address] 84875- 5674 Nov, Severe episode of recurrent major depressive disorder, without psychotic features F33.2 ; PTSD (post-traumatic stress disorder) F43.10 ; Panic disorder F41.0 and BMI 40.0-44.9, adult Z68.41 [facility] [id number] [place] [address] 79869- 0956 Oct, [facility] [id number] [place] [address] 46967- 8586 Oct, [facility] [id number] [place] [address] 74375- 6325 Oct, [facility] [id number] [place] [address] 86655- 9803 Oct, [facility] [id number] [place] [address], [place] [address]- 4610 Oct, Dorsalgia, unspecified M54.9 [facility] [id number] [place] [address] 15657- 6107 Oct, Severe episode of recurrent major depressive disorder, without psychotic features F33.2 and Generalized anxiety disorder F41.1 [facility] [id number] [place] [address] 21472- 2065 Oct, [facility] [id number] [place] [address] 13526- 4261 Oct, [facility] [id number] [place] [address] 48864- 9969 Oct, [facility] [id number] [place] [address] 80497- 6063 Oct, [facility] [id number] [place] [address] 22149- 1729 Oct, [facility] [id number] [place] [address] 96192- 1764 Oct, [facility] [id number] [address]- 3653 Oct, [facility] [id number] [place] [address] 78573- 7395 Oct, [facility] [id number] [place] [address] 21628- 0599 Sep, Dorsalgia, unspecified M54.9 [facility] [id number] [place] [address] 41604- 0157 Sep, [facility] [id number] [place] [address] 70039- 9321 Sep, [facility] [id number] [place] [address] 08478- 5130 Sep, Falling R29.6 ; Essential hypertension I10 ; Chronic obstructive pulmonary disease, unspecified COPD type J44.9 and BMI 40.0-44.9, adult Z68.41 [facility] [id number] [place] [address] 05614- 0103 Sep, [facility] [id number] [place] [address] 77400- 1645 Sep, [facility] [id number] [place] [address] 59810- 8099 Sep, [facility] [id number] [place] [address] 83137- 4262 Sep, Mild intermittent asthma without complication J45.20 [facility] [id number] [address]- 7848 Sep, [facility] [id number] [place] [address] 60523- 1534 Sep, [facility] [id number] [place] [address] 35990- 2890 Sep, [facility] [id number] [place] [address] 76113- 5502 Sep, [facility] [id number] [place] [address] 34908- 3788 Sep, [facility] [id number] [place] [address] 25100- 4985 15 Sep, 2017 [facility] [address] [address]- 2436 15 Sep, 2017 Essential hypertension I10 [facility] [address] [address]- 1193 15 Sep, 2017 [facility] [id number] [address]- 6434 15 Sep, 2017 [facility] [id number] [address]- 3531 15 Sep, 2017 [facility] [id number] [place] [address] 83605- 6381 14 Sep, 2017 [facility] [id number] [address]- 5962 14 Sep, 2017 [facility] [id number] [place] [address] 54166- 5586 14 Sep, 2017 [facility] [id number] [address]- 9688 13 Sep, 2017 [facility] [id number] [place] [address] 65056- 8590 Sep, [facility] [id number] [address]- 2083 Sep, [facility] [id number] [address]- 0056 Sep, [facility] [id number] [address]- 3391 05 Sep, 2017 Mild intermittent asthma without complication J45.20 [facility] [id number] [address]- 3957 August, Essential hypertension I10 [facility] [address] [address]- 1639 August, BMI 40.0-44.9, adult Z68.41 ; Dorsalgia, unspecified M54.9 ; Allergic state, initial encounter T78.40XA ; Mild intermittent asthma without complication J45.20 and 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 [facility] [id number] [place] [address] 09122- 7349 August, [facility] [id number] [place] [address] 98554- 3483 August, [facility] [id number] [place] [address] 15030- 4717 August, [facility] [id number] [place] [address] 02208- 9769 August, Reactive depression F32.9 [facility] [id number] [place] [address] 83476- 9981 August, [facility] [id number] [place] [address] 81619- 5749 August, [facility] [id number] [place] [address] 21886- 2515 August, [facility] [id number] [place] [address] 04632- 4235 August, [facility] [id number] [place] [address] 01669- 8728 August, [facility] [id number] [place] [address] 58000- 1903 August, [facility] [id number] [place] [address] 41285- 1450 August, [facility] [id number] [place] [address] 42521- 8379 August, Muscle spasms of both lower extremities M62.838 ; Essential hypertension I10 and Reactive depression F32.9 [facility] [id number] [place] [address] 10669- 6530 August, [facility] [id number] [place] [address] 80832- 2353 Jul, [facility] [id number] [address]- 7088 Jul, [facility] [address] [address]- 3969 Jul, [facility] [id number] [address]- 7209 Jul, [facility] [id number] 9894 Jul, [facility] [id number] [address]- 4430 Jul, [facility] [id number] [address]- 2577 Jul, [facility] [id number] [address]- 2201 Jul, [facility] [id number] [address]- 5761 Jul, Essential hypertension I10 ; Other chronic pain G89.29 ; Dorsalgia, unspecified M54.9 ; Reactive depression F32.9 ; Mild intermittent asthma without complication J45.20 ; Allergic state, initial encounter T78.40XA and Muscle spasms of both lower extremities M62.838 IMMUNIZATIONS No Known Immunizations SOCIAL HISTORY Never Assessed REASON FOR VISIT Re:RE:Re:RE:Re:RE:Handicap [facility] PLAN OF CARE VITAL SIGNS MEDICATIONS Unknown [...]
--- OUTSIDE RECORDS SUMMARY | 2018-01-11 16:59 | XMS REPORT ---
Author Author ROSALINA GRAHAM Organization [facility] Address [address] [place] [address] Care Team Providers Care Obstetrician Gynecologist Name Role Phone ROSALINA GRAHAM Unavailable PROBLEMS Type Condition ICD9-CM Code XLF03-WZ Code Onset Dates Condition Status SNOMED Code Problem Muscle spasms of both lower extremities M62.838 Active 608143214 Problem Severe episode of recurrent major depressive disorder, without psychotic features F33.2 Active 36038884 Problem Reactive depression F32.9 Active 02371546 Problem Allergic state, initial encounter T78.40XA Active 671158599 Problem Essential hypertension I10 Active 89420032 Problem Dorsalgia, unspecified M54.9 Active 746181954 Problem Other chronic pain G89.29 Active 70269932 Problem Moderate persistent asthma without complication J45.40 Active 104140368 Problem Cervical disc disease with myelopathy M50.00 Active 62566003 Problem Falling R29.6 Active 525677298 Problem Generalized anxiety disorder F41.1 Active 49982731 Problem Panic disorder F41.0 Active 090126598 Problem PTSD (post-traumatic stress disorder) F43.10 Active 74297086 ALLERGIES No Information ENCOUNTERS Encounter Location Date Diagnosis [facility] [address], [place] [address] Jan, [facility] [address], [place] [address] 24 Dec, 2017 [facility] [id number] [place] [address] 60914- 5084 Dec, [facility] [id number] [place] [address] 25186- 0348 Dec, [facility] [id number] [place] [address] 94869- 2048 14 Dec, 2017 [facility] [id number] [place] [address] 80779- 9093 Dec, [facility] [id number] [place] [address] 53335- 2729 Dec, BMI 40.0-44.9, adult Z68.41 ; Severe episode of recurrent major depressive disorder, without psychotic features F33.2 ; PTSD (post- traumatic stress disorder) F43.10 and Panic disorder F41.0 [facility] [id number] [place] [address] 69249- 9357 Dec, [facility] [id number] [place] [address] 82737- 3350 Dec, [facility] [id number] [place] [address] 89900- 5225 Dec, Essential hypertension I10 [facility] [id number] [place] [address] 78688- 3009 Dec, Severe episode of recurrent major depressive disorder, without psychotic features F33.2 [facility] [id number] [place] [address] 69231- 4028 Dec, Severe episode of recurrent major depressive disorder, without psychotic features F33.2 and Generalized anxiety disorder F41.1 [facility] [id number] [place] [address] 61313- 4327 Nov, Cervical disc disease with myelopathy M50.00 [facility] [id number] [place] [address] 67830- 2497 Nov, Cervical disc disease with myelopathy M50.00 ; Moderate persistent asthma without complication J45.40 and BMI 40.0-44.9, adult Z68.41 [facility] [id number] [place] [address] 24815- 9197 Nov, [facility] [id number] [place] [address] 13132- 8774 Nov, [facility] [id number] [address] Nov, [facility] [id number] [place] [address] 81883- 6315 Nov, [facility] [id number] [place] [address] 04035- 5909 Nov, [facility] [id number] [place] [address] 29614- 1943 Nov, [facility] [id number] [place] [address] 37774- 9776 Nov, [facility] [id number] [place] [address] 85084- 3391 Nov, [facility] [id number] [place] [address] 74078- 7491 Nov, [facility] [id number] [place] [address] 79451- 2720 Nov, Severe episode of recurrent major depressive disorder, without psychotic features F33.2 ; PTSD (post-traumatic stress disorder) F43.10 ; Panic disorder F41.0 and BMI 40.0-44.9, adult Z68.41 [facility] [id number] [place] [address] 13838- 6361 Nov, [facility] [id number] [place] [address] 94987- 9792 Nov, Essential hypertension I10 [facility] [id number] [place] [address] 59508- 4890 Nov, Severe episode of recurrent major depressive disorder, without psychotic features F33.2 [facility] [id number] [place] [address] 58318- 3096 Nov, Acute pain of left knee M25.562 [facility] [id number] [place] [address] 59633- 4930 Nov, Severe episode of recurrent major depressive disorder, without psychotic features F33.2 ; PTSD (post-traumatic stress disorder) F43.10 ; Panic disorder F41.0 and BMI 40.0-44.9, adult Z68.41 [facility] [id number] [place] [address] 39147- 9096 Oct, [facility] [id number] [place] [address] 37260- 0666 Oct, [facility] [id number] [place] [address] 64535- 4102 Oct, [facility] [id number] [place] [address] 88282- 7919 Oct, [facility] [id number] [place] [address], [place] [address]- 3452 Oct, Dorsalgia, unspecified M54.9 [facility] [id number] [place] [address] 53810- 1621 Oct, Severe episode of recurrent major depressive disorder, without psychotic features F33.2 and Generalized anxiety disorder F41.1 [facility] [id number] [place] [address] 80340- 2141 Oct, [facility] [id number] [place] [address] 42873- 6536 Oct, [facility] [id number] [place] [address] 63158- 1558 Oct, [facility] [id number] [place] [address] 95591- 8169 Oct, [facility] [id number] [place] [address] 65550- 3089 Oct, [facility] [id number] [place] [address] 30542- 1410 Oct, [facility] [id number] [address] 5415 Oct, [facility] [id number] [place] [address] 42909- 0896 Oct, [facility] [id number] [place] [address] 77388- 8895 Sep, Dorsalgia, unspecified M54.9 [facility] [id number] [place] [address] 34778- 7848 Sep, [facility] [id number] [place] [address] 28038- 5479 Sep, [facility] [id number] [place] [address] 30229- 5375 Sep, Falling R29.6 ; Essential hypertension I10 ; Chronic obstructive pulmonary disease, unspecified COPD type J44.9 and BMI 40.0-44.9, adult Z68.41 [facility] [id number] [place] [address] 95344- 6057 Sep, [facility] [id number] [place] [address] 60639- 8303 Sep, [facility] [id number] [place] [address] 53285- 1766 Sep, [facility] [id number] [place] [address] 60575- 7809 Sep, Mild intermittent asthma without complication J45.20 [facility] [id number] [place] [address]- 8803 Sep, [facility] [id number] [place] [address] 89303- 9694 Sep, [facility] [id number] [place] [address] 01676- 3590 Sep, [facility] [id number] [place] [address] 09435- 0581 Sep, [facility] [id number] [place] [address] 46197- 9343 Sep, [facility] [id number] [place] [address] 91925- 0069 15 Sep, 2017 [facility] [address], [place] [address]- 7413 15 Sep, 2017 Essential hypertension I10 [facility] [address], [place] [address]- 8188 15 Sep, 2017 [facility] [address], [place] [address]- 5429 15 Sep, 2017 [facility] [address], [place] [address]- 7063 15 Sep, 2017 [facility] [address] [place] [address] 16005- 5331 14 Sep, 2017 [facility] [address], [place] [address]- 8574 14 Sep, 2017 [facility] [address] [place] [address] 38716- 7925 14 Sep, 2017 [facility] [address], [place] [address]- 2674 13 Sep, 2017 [facility] [id number] [place] [address] 71500- 2913 Sep, [facility] [address], [place] [address]- 3983 Sep, [facility] [address] [place] [address]- 4805 Sep, [facility] [address], [place] [address]- 4980 05 Sep, 2017 Mild intermittent asthma without complication J45.20 [facility] [address] [place] [address]- 9783 August, Essential hypertension I10 [facility] [address], [place] [address]- 2853 August, BMI 40.0-44.9, adult Z68.41 ; Dorsalgia, unspecified M54.9 ; Allergic state, initial encounter T78.40XA ; Mild intermittent asthma without complication J45.20 and 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 [facility] [id number] [place] [address] 53560- 8726 August, [facility] [id number] [place] [address] 72345- 3081 August, [facility] [id number] [place] [address] 84205- 6483 August, [facility] [id number] [place] [address] 82950- 1148 August, Reactive depression F32.9 [facility] [id number] [place] [address] 02959- 0296 August, [facility] [id number] [place] [address] 41945- 2594 August, [facility] [id number] [place] [address] 45044- 0866 August, [facility] [id number] [place] [address] 83085- 3912 August, [facility] [id number] [place] [address] 63410- 4924 August, [facility] [id number] [place] [address] 44298- 7358 August, [facility] [id number] [place] [address] 76907- 7190 August, [facility] [id number] [place] [address] 16754- 5011 August, Muscle spasms of both lower extremities M62.838 ; Essential hypertension I10 and Reactive depression F32.9 [facility] [id number] [place] [address] 60067- 4090 August, [facility] [id number] [place] [address] 05876- 9111 Jul, [facility] [address], [place] [address]- 3361 Jul, [facility] [address], [place] [address]- 2502 Jul, [facility] [address] [place] [address]- 8253 Jul, [facility] [address], [place] [address]- 0024 Jul, [facility] [address], [place] [address]- 2344 Jul, [facility] [address] [place] [address]- 0306 Jul, [facility] [address] [place] [address]- 6720 Jul, [facility] [id number] [place] [address]- 4916 Jul, Essential hypertension I10 ; Other chronic pain G89.29 ; Dorsalgia, unspecified M54.9 ; Reactive depression F32.9 ; Mild intermittent asthma without complication J45.20 ; Allergic state, initial encounter T78.40XA and Muscle spasms of both lower extremities M62.838 IMMUNIZATIONS No Known Immunizations SOCIAL HISTORY Never Assessed REASON FOR VISIT [employer] PLAN OF CARE VITAL SIGNS MEDICATIONS Unknown [...]
--- OUTSIDE RECORDS SUMMARY | 2018-01-11 16:59 | XMS REPORT ---
Author Author ROSALINA GRAHAM Organization [facility] Address [address] [place] [address] Care Team Providers Care Numerical Control Lathe Operator Name Role Phone ROSALINA GRAHAM Unavailable PROBLEMS Type Condition ICD9-CM Code [id number] Code Onset Dates Condition Status SNOMED Code Problem Muscle spasms of both lower extremities M62.838 Active 931703360 Problem Severe episode of recurrent major depressive disorder, without psychotic features F33.2 Active 40389731 Problem Reactive depression F32.9 Active 24108497 Problem Allergic state, initial encounter T78.40XA Active 020408556 Problem Essential hypertension I10 Active 81735220 Problem Dorsalgia, unspecified M54.9 Active 896274360 Problem Other chronic pain G89.29 Active 80466185 Problem Moderate persistent asthma without complication J45.40 Active 500781424 Problem Cervical disc disease with myelopathy M50.00 Active 64450002 Problem Falling R29.6 Active 795311106 Problem Generalized anxiety disorder F41.1 Active 47903732 Problem Panic disorder F41.0 Active 363933338 Problem PTSD (post-traumatic stress disorder) F43.10 Active 88899973 ALLERGIES No Information ENCOUNTERS Encounter Location Date Diagnosis [facility] [id number] [address] Jan, [facility] [id number] [address] 24 Dec, 2017 [facility] [id number] [place] [address] 00284- 1943 Dec, [facility] [id number] [place] [address] 90220- 8858 Dec, [facility] [id number] [place] [address] 36977- 9984 14 Dec, 2017 [facility] [id number] [place] [address] 63381- 5954 Dec, [facility] [id number] [place] [address] 63873- 7859 Dec, BMI 40.0-44.9, adult Z68.41 ; Severe episode of recurrent major depressive disorder, without psychotic features F33.2 ; PTSD (post- traumatic stress disorder) F43.10 and Panic disorder F41.0 [facility] [id number] [place] [address] 67386- 9614 Dec, [facility] [id number] [place] [address] 41552- 8354 Dec, [facility] [id number] [place] [address] 32544- 3043 Dec, Essential hypertension I10 [facility] [id number] [place] [address] 18102- 8609 Dec, Severe episode of recurrent major depressive disorder, without psychotic features F33.2 [facility] [id number] [place] [address] 45191- 5947 Dec, Severe episode of recurrent major depressive disorder, without psychotic features F33.2 and Generalized anxiety disorder F41.1 [facility] [id number] [place] [address] 86170- 4300 Nov, Cervical disc disease with myelopathy M50.00 [facility] [id number] [place] [address] 33278- 3705 Nov, Cervical disc disease with myelopathy M50.00 ; Moderate persistent asthma without complication J45.40 and BMI 40.0-44.9, adult Z68.41 [facility] [id number] [place] [address] 18315- 2132 Nov, [facility] [id number] [place] [address] 25134- 9821 Nov, [facility] [id number] [address] 117[address] Nov, [facility] [id number] [place] [address] 47894- 9215 Nov, [facility] [id number] [place] [address] 20687- 5618 Nov, [facility] [id number] [place] [address] 19720- 9858 Nov, [facility] [id number] [place] [address] 65111- 0536 Nov, [facility] [id number] [place] [address] 57736- 4239 Nov, [facility] [id number] [place] [address] 73032- 4106 Nov, [facility] [id number] [place] [address] 59492- 7012 Nov, Severe episode of recurrent major depressive disorder, without psychotic features F33.2 ; PTSD (post-traumatic stress disorder) F43.10 ; Panic disorder F41.0 and BMI 40.0-44.9, adult Z68.41 [facility] [id number] [place] [address] 05025- 5417 Nov, [facility] [id number] [place] [address] 97113- 0103 Nov, Essential hypertension I10 [facility] [id number] [place] [address] 23388- 5213 Nov, Severe episode of recurrent major depressive disorder, without psychotic features F33.2 [facility] [id number] [place] [address] 61012- 7382 Nov, Acute pain of left knee M25.562 [facility] [id number] [place] [address] 46723- 4121 Nov, Severe episode of recurrent major depressive disorder, without psychotic features F33.2 ; PTSD (post-traumatic stress disorder) F43.10 ; Panic disorder F41.0 and BMI 40.0-44.9, adult Z68.41 [facility] [id number] [place] [address] 94269- 6926 Oct, [facility] [id number] [place] [address] 74963- 4886 Oct, [facility] [id number] [place] [address] 57428- 3214 Oct, [facility] [id number] [place] [address] 33330- 2212 Oct, [facility] [id number] [place] [address], [place] [address]- 0947 Oct, Dorsalgia, unspecified M54.9 [facility] [id number] [place] [address] 77331- 1130 Oct, Severe episode of recurrent major depressive disorder, without psychotic features F33.2 and Generalized anxiety disorder F41.1 [facility] [id number] [place] [address] 37300- 6439 Oct, [facility] [id number] [place] [address] 58025- 8286 Oct, [facility] [id number] [place] [address] 99739- 8289 Oct, [facility] [id number] [place] [address] 99244- 2779 Oct, [facility] [id number] [place] [address] 79310- 7680 Oct, [facility] [id number] [place] [address] 35216- 2340 Oct, [facility] [id number] [address]- 9053 Oct, [facility] [id number] [place] [address] 70304- 2371 Oct, [facility] [id number] [place] [address] 54012- 8510 Sep, Dorsalgia, unspecified M54.9 [facility] [id number] [place] [address] 06995- 7828 Sep, [facility] [id number] [place] [address] 64282- 2756 Sep, [facility] [id number] [place] [address] 03657- 9540 Sep, Falling R29.6 ; Essential hypertension I10 ; Chronic obstructive pulmonary disease, unspecified COPD type J44.9 and BMI 40.0-44.9, adult Z68.41 [facility] [id number] [place] [address] 21325- 8459 Sep, [facility] [id number] [place] [address] 07420- 4822 Sep, [facility] [id number] [place] [address] 76477- 7648 Sep, [facility] [id number] [place] [address] 37695- 7060 Sep, Mild intermittent asthma without complication J45.20 [facility] [id number] [address]- 8162 Sep, [facility] [id number] [place] [address] 17705- 0713 Sep, [facility] [id number] [place] [address] 70711- 4249 Sep, [facility] [id number] [place] [address] 55895- 5687 Sep, [facility] [id number] [place] [address] 98550- 1035 Sep, [facility] [id number] [place] [address] 60871- 6091 15 Sep, 2017 [facility] [id number] [address]- 4964 15 Sep, 2017 Essential hypertension I10 [facility] [id number] [address]- 9817 15 Sep, 2017 [facility] [id number] [address]- 5184 15 Sep, 2017 [facility] [id number] [address]- 7100 15 Sep, 2017 [facility] [id number] [place] [address] 30571- 4646 14 Sep, 2017 [facility] [id number] [address]- 6384 14 Sep, 2017 [facility] [id number] [place] [address] 44502- 6204 14 Sep, 2017 [facility] [id number] [address]- 4399 13 Sep, 2017 [facility] [id number] [place] [address] 37988- 9391 Sep, [facility] [id number] [address]- 6520 Sep, [facility] [id number] [address]- 7036 Sep, [facility] [id number] [address]- 2656 05 Sep, 2017 Mild intermittent asthma without complication J45.20 [facility] [id number] [address]- 1803 August, Essential hypertension I10 [facility] [id number] [address]- 3617 August, BMI 40.0-44.9, adult Z68.41 ; Dorsalgia, unspecified M54.9 ; Allergic state, initial encounter T78.40XA ; Mild intermittent asthma without complication J45.20 and 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 [facility] [id number] [place] [address] 14455- 9379 August, [facility] [id number] [place] [address] 41378- 8706 August, [facility] [id number] [place] [address] 90625- 1043 August, [facility] [id number] [place] [address] 44707- 3143 August, Reactive depression F32.9 [facility] [id number] [place] [address] 02279- 6277 August, [facility] [id number] [place] [address] 23217- 8834 August, [facility] [id number] [place] [address] 39750- 3398 August, [facility] [id number] [place] [address] 16104- 6948 August, [facility] [id number] [place] [address] 17644- 1841 August, [facility] [id number] [place] [address] 80816- 6831 August, [facility] [id number] [place] [address] 69827- 7158 August, [facility] [id number] [place] [address] 27695- 8543 August, Muscle spasms of both lower extremities M62.838 ; Essential hypertension I10 and Reactive depression F32.9 [facility] [id number] [place] [address] 14365- 5696 August, [facility] [id number] [place] [address] 49007- 9232 Jul, [facility] [id number] [address]- 7750 Jul, [facility] [id number] [address]- 2887 Jul, [facility] [id number] [address]- 5853 Jul, [facility] [id number] 0080 Jul, [facility] [id number] [address]- 6101 Jul, [facility] [id number] [address]- 0850 Jul, [facility] [id number] [address]- 8598 Jul, [facility] [id number] [address]- 9840 Jul, Essential hypertension I10 ; Other chronic pain G89.29 ; Dorsalgia, unspecified M54.9 ; Reactive depression F32.9 ; Mild intermittent asthma without complication J45.20 ; Allergic state, initial encounter T78.40XA and Muscle spasms of both lower extremities M62.838 IMMUNIZATIONS No Known Immunizations SOCIAL HISTORY Never Assessed REASON FOR VISIT Re:RE:Handicap [facility] PLAN OF CARE VITAL SIGNS [...]
--- OUTSIDE RECORDS SUMMARY | 2018-01-11 16:59 | XMS REPORT ---
Author Author ROSALINA GRAHAM Organization [facility], [place] Address [address] [place] [address] Care Team Providers Care Emergency Medical Technician Name Role Phone ROSALINA GRAHAM Unavailable PROBLEMS Type Condition ICD9-CM Code GDL67-YN Code Onset Dates Condition Status SNOMED Code Problem Muscle spasms of both lower extremities M62.838 Active 785090707 Problem Severe episode of recurrent major depressive disorder, without psychotic features F33.2 Active 07073666 Problem Reactive depression F32.9 Active 98513839 Problem Allergic state, initial encounter T78.40XA Active 733505968 Problem Essential hypertension I10 Active 08176176 Problem Dorsalgia, unspecified M54.9 Active 948418454 Problem Other chronic pain G89.29 Active 88062503 Problem Moderate persistent asthma without complication J45.40 Active 260844293 Problem Cervical disc disease with myelopathy M50.00 Active 75534967 Problem Falling R29.6 Active 385628327 Problem Generalized anxiety disorder F41.1 Active 94865777 Problem Panic disorder F41.0 Active 315516476 Problem PTSD (post-traumatic stress disorder) F43.10 Active 62965380 ALLERGIES No Information ENCOUNTERS Encounter Location Date Diagnosis [facility], [place] [address], [place] [address] Jan, [facility], [place] [address], [place] [address] 24 Dec, 2017 [facility] [place] [id number] [place] [address] 43578- 0284 Dec, [facility] [place] [id number] [place] [address] 53792- 8965 Dec, [facility] [place] [id number] [place] [address] 12682- 4120 14 Dec, 2017 [facility] [place] [id number] [place] [address] 56862- 7286 Dec, [facility] [id number] [place] [address] 30040- 4012 Dec, BMI 40.0-44.9, adult Z68.41 ; Severe episode of recurrent major depressive disorder, without psychotic features F33.2 ; PTSD (post- traumatic stress disorder) F43.10 and Panic disorder F41.0 [facility] [place] [id number] [place] [address] 00594- 4085 Dec, [facility] [place] [id number] [place] [address] 90587- 9746 Dec, [facility] [id number] [place] [address] 51954- 0526 Dec, Essential hypertension I10 [facility] [id number] [place] [address] 03351- 2564 Dec, Severe episode of recurrent major depressive disorder, without psychotic features F33.2 [facility] [id number] [place] [address] 24035- 2427 Dec, Severe episode of recurrent major depressive disorder, without psychotic features F33.2 and Generalized anxiety disorder F41.1 [facility] [id number] [place] [address] 89160- 9853 Nov, Cervical disc disease with myelopathy M50.00 [facility] [id number] [place] [address] 90223- 9966 Nov, Cervical disc disease with myelopathy M50.00 ; Moderate persistent asthma without complication J45.40 and BMI 40.0-44.9, adult Z68.41 [facility] [id number] [place] [address] 97347- 2796 Nov, [facility] [id number] [place] [address] 10219- 4461 Nov, [facility] [id number], [place] [address] Nov, [facility] [place] [id number] [place] [address] 81456- 8392 Nov, [facility] [place] [id number] [place] [address] 18666- 4015 Nov, [facility] [place] [id number] [place] [address] 16577- 4851 Nov, [facility] [place] [id number] [place] [address] 71197- 7894 Nov, [facility] [place] [id number] [place] [address] 54743- 7160 Nov, [facility] [place] [id number] [place] [address] 56206- 9254 Nov, [facility] [place] [id number] [place] [address] 27273- 1420 Nov, Severe episode of recurrent major depressive disorder, without psychotic features F33.2 ; PTSD (post-traumatic stress disorder) F43.10 ; Panic disorder F41.0 and BMI 40.0-44.9, adult Z68.41 [facility] [place] [id number] [place] [address] 30238- 8220 Nov, [facility] [place] [id number] [place] [address] 77670- 0048 Nov, Essential hypertension I10 [facility] [place] [id number] [place] [address] 45623- 0719 Nov, Severe episode of recurrent major depressive disorder, without psychotic features F33.2 [facility] [place] [id number] [place] [address] 90864- 1534 Nov, Acute pain of left knee M25.562 [facility] [place] [id number] [place] [address] 01351- 3427 Nov, Severe episode of recurrent major depressive disorder, without psychotic features F33.2 ; PTSD (post-traumatic stress disorder) F43.10 ; Panic disorder F41.0 and BMI 40.0-44.9, adult Z68.41 [facility] [place] [id number] [place] [address] 10474- 5286 Oct, [facility] [place] [id number] [place] [address] 86777- 5816 Oct, [facility] [place] [id number] [place] [address] 93321- 4554 Oct, [facility] [place] [id number] [place] [address] 05717- 7822 Oct, [facility] [place] [id number] [place] [address], [place] [address]- 7841 Oct, Dorsalgia, unspecified M54.9 [facility] [place] [id number] [place] [address] 61094- 3118 Oct, Severe episode of recurrent major depressive disorder, without psychotic features F33.2 and Generalized anxiety disorder F41.1 [facility] [place] [id number] [place] [address] 90095- 8537 Oct, [facility] [place] [id number] [place] [address] 36217- 0098 Oct, [facility] [place] [id number] [place] [address] 51349- 3137 Oct, [facility] [place] [id number] [place] [address] 04279- 0681 Oct, [facility] [place] [id number] [place] [address] 83039- 2913 Oct, [facility] [place] [id number] [place] [address] 99678- 3976 Oct, [facility] [place] [id number], [place] [address]- 6792 Oct, [facility] [place] [id number] [place] [address] 20976- 2281 Oct, [facility] [place] [id number] [place] [address] 51659- 0532 Sep, Dorsalgia, unspecified M54.9 [facility] [place] [id number] [place] [address] 84236- 4383 Sep, [facility] [place] [id number] [place] [address] 21861- 6114 Sep, [facility] [place] [id number] [place] [address] 81994- 3183 Sep, Falling R29.6 ; Essential hypertension I10 ; Chronic obstructive pulmonary disease, unspecified COPD type J44.9 and BMI 40.0-44.9, adult Z68.41 [facility] [place] [id number] [place] [address] 44782- 3440 Sep, [facility] [place] [id number] [place] [address] 52464- 9618 Sep, [facility] [place] [id number] [place] [address] 15623- 4212 Sep, [facility] [place] [id number] [place] [address] 61949- 4308 Sep, Mild intermittent asthma without complication J45.20 [facility] [place] [id number] [place] [address]- 5279 Sep, [facility] [place] [id number] [place] [address] 31967- 2516 Sep, [facility] [place] [id number] [place] [address] 60667- 5668 Sep, [facility] [place] [id number] [place] [address] 36530- 0848 Sep, [facility] [place] [id number] [place] [address] 96204- 9334 Sep, [facility] [place] [id number] [place] [address] 61739- 6945 15 Sep, 2017 [facility] [place] [address], [place] [address]- 7657 15 Sep, 2017 Essential hypertension I10 [facility] [place] [address], [place] [address]- 4680 15 Sep, 2017 [facility] [place] [address] [place] [address]- 0457 15 Sep, 2017 [facility] [place] [address], [place] [address]- 8399 15 Sep, 2017 [facility] [place] [id number] [place] [address] 52912- 8321 14 Sep, 2017 [facility] [place] [address], [place] [address]- 8315 14 Sep, 2017 [facility] [place] [id number] [place] [address] 16524- 5563 14 Sep, 2017 [facility] [place] [address], [place] [address]- 9862 13 Sep, 2017 [facility] [place] [id number] [place] [address] 70140- 3028 Sep, [facility] [place] [address], [place] [address]- 3895 Sep, [facility] [place] [address], [place] [address]- 4616 Sep, [facility] [place] [address], [place] [address]- 0061 05 Sep, 2017 Mild intermittent asthma without complication J45.20 [facility] [place] [address], [place] [address]- 6335 August, Essential hypertension I10 [facility] [place] [address], [place] [address]- 8816 August, BMI 40.0-44.9, adult Z68.41 ; Dorsalgia, unspecified M54.9 ; Allergic state, initial encounter T78.40XA ; Mild intermittent asthma without complication J45.20 and 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 [facility] [place] [id number] [place] [address] 82110- 6858 August, [facility] [place] [id number] [place] [address] 57830- 1042 August, [facility] [place] [id number] [place] [address] 49316- 4674 August, [facility] [place] [id number] [place] [address] 75712- 1421 August, Reactive depression F32.9 [facility] [place] [id number] [place] [address] 83607- 7219 August, [facility] [place] [id number] [place] [address] 50102- 7408 August, [facility] [place] [id number] [place] [address] 69394- 4597 August, [facility] [place] [id number] [place] [address] 76125- 2342 August, [facility] [place] [id number] [place] [address] 89782- 4825 August, [facility] [place] [id number] [place] [address] 53364- 0264 August, [facility] [place] [id number] [place] [address] 21655- 0024 August, [facility] [place] [id number] [place] [address] 70125- 8706 August, Muscle spasms of both lower extremities M62.838 ; Essential hypertension I10 and Reactive depression F32.9 [facility] [place] [id number] [place] [address] 98845- 3380 August, [facility] [place] [id number] [place] [address] 91862- 3996 Jul, [facility] [place] [id number], [place] [address]- 3446 Jul, [facility] [place] [address], [place] [address]- 6112 Jul, [facility] [place] [address], [place] [address]- 3999 Jul, [facility] [place] [address] 4988 Jul, [facility] [place] [address], [place] [address]- 7282 Jul, [facility] [place] [address], [place] [address]- 1529 Jul, [facility] [place] [address], [place] [address]- 7123 Jul, [facility] [place] [id number], [place] [address]- 0547 Jul, Essential hypertension I10 ; Other chronic pain G89.29 ; Dorsalgia, unspecified M54.9 ; Reactive depression F32.9 ; Mild intermittent asthma without complication J45.20 ; Allergic state, initial encounter T78.40XA and Muscle spasms of both lower extremities M62.838 IMMUNIZATIONS No Known Immunizations SOCIAL HISTORY Never Assessed REASON FOR VISIT Re:RE:Re:RE:[facility] PLAN OF CARE VITAL SIGNS MEDICATIONS Unknown [...]
--- OUTSIDE RECORDS SUMMARY | 2018-01-11 16:59 | XMS REPORT ---
Author Author ROSALINA GRAHAM Organization [facility] Address [address] [place] [address] Care Team Providers Care School Counsellor Name Role Phone ROSALINA GRAHAM Unavailable PROBLEMS Type Condition ICD9-CM Code [id number]-[id number] Code Onset Dates Condition Status SNOMED Code Problem Muscle spasms of both lower extremities M62.838 Active 458088518 Problem Severe episode of recurrent major depressive disorder, without psychotic features F33.2 Active 94004687 Problem Reactive depression F32.9 Active 88620671 Problem Allergic state, initial encounter T78.40XA Active 003394635 Problem Essential hypertension I10 Active 92058755 Problem Dorsalgia, unspecified M54.9 Active 515517567 Problem Other chronic pain G89.29 Active 02858394 Problem Moderate persistent asthma without complication J45.40 Active 204020035 Problem Cervical disc disease with myelopathy M50.00 Active 17528619 Problem Falling R29.6 Active 558277328 Problem Generalized anxiety disorder F41.1 Active 83056403 Problem Panic disorder F41.0 Active 956477909 Problem PTSD (post-traumatic stress disorder) F43.10 Active 11947862 ALLERGIES No Information ENCOUNTERS Encounter Location Date Diagnosis [facility] [address] [address] Jan, [facility] [address] [address] 24 Dec, 2017 [facility] [id number] [place] [address] 84957- 9276 Dec, [facility] [id number] [place] [address] 62579- 8051 Dec, [facility] [id number] [place] [address] 54402- 7626 14 Dec, 2017 [facility] [id number] [place] [address] 86111- 9838 Dec, [facility] [id number] [place] [address] 13989- 8143 Dec, BMI 40.0-44.9, adult Z68.41 ; Severe episode of recurrent major depressive disorder, without psychotic features F33.2 ; PTSD (post- traumatic stress disorder) F43.10 and Panic disorder F41.0 [facility] [id number] [place] [address] 31467- 5869 Dec, [facility] [id number] [place] [address] 57962- 2297 Dec, [facility] [id number] [place] [address] 73376- 1664 Dec, Essential hypertension I10 [facility] [id number] [place] [address] 53774- 9079 Dec, Severe episode of recurrent major depressive disorder, without psychotic features F33.2 [facility] [id number] [place] [address] 87317- 8231 Dec, Severe episode of recurrent major depressive disorder, without psychotic features F33.2 and Generalized anxiety disorder F41.1 [facility] [id number] [place] [address] 96658- 9954 Nov, Cervical disc disease with myelopathy M50.00 [facility] [id number] [place] [address] 88163- 2447 Nov, Cervical disc disease with myelopathy M50.00 ; Moderate persistent asthma without complication J45.40 and BMI 40.0-44.9, adult Z68.41 [facility] [id number] [place] [address] 52079- 8839 Nov, [facility] [id number] [place] [address] 98136- 0348 Nov, [facility] [id number] [address] 9373 Nov, [facility] [id number] [place] [address] 14283- 7522 Nov, [facility] [id number] [place] [address] 31174- 5088 Nov, [facility] [id number] [place] [address] 10137- 7242 Nov, [facility] [id number] [place] [address] 78225- 1810 Nov, [facility] [id number] [place] [address] 58640- 5766 Nov, [facility] [id number] [place] [address] 39330- 5766 Nov, [facility] [id number] [place] [address] 70715- 2168 Nov, Severe episode of recurrent major depressive disorder, without psychotic features F33.2 ; PTSD (post-traumatic stress disorder) F43.10 ; Panic disorder F41.0 and BMI 40.0-44.9, adult Z68.41 [facility] [id number] [place] [address] 85669- 3987 Nov, [facility] [id number] [place] [address] 86507- 9079 Nov, Essential hypertension I10 [facility] [id number] [place] [address] 11705- 3237 Nov, Severe episode of recurrent major depressive disorder, without psychotic features F33.2 [facility] [id number] [place] [address] 02094- 1310 Nov, Acute pain of left knee M25.562 [facility] [id number] [place] [address] 45009- 7788 Nov, Severe episode of recurrent major depressive disorder, without psychotic features F33.2 ; PTSD (post-traumatic stress disorder) F43.10 ; Panic disorder F41.0 and BMI 40.0-44.9, adult Z68.41 [facility] [id number] [place] [address] 89601- 8326 Oct, [facility] [id number] [place] [address] 32590- 8616 Oct, [facility] [id number] [place] [address] 18912- 1443 Oct, [facility] [id number] [place] [address] 03091- 0783 Oct, [facility] [id number] [place] [address], [place] [address]- 8361 Oct, Dorsalgia, unspecified M54.9 [facility] [id number] [place] [address] 74856- 0206 Oct, Severe episode of recurrent major depressive disorder, without psychotic features F33.2 and Generalized anxiety disorder F41.1 [facility] [id number] [place] [address] 30371- 7878 Oct, [facility] [id number] [place] [address] 52377- 7453 Oct, [facility] [id number] [place] [address] 56363- 3281 Oct, [facility] [id number] [place] [address] 28953- 5929 Oct, [facility] [id number] [place] [address] 97543- 5382 Oct, [facility] [id number] [place] [address] 34750- 7512 Oct, [facility] [id number] [address]- 8694 Oct, [facility] [id number] [place] [address] 61316- 2796 Oct, [facility] [id number] [place] [address] 28225- 4926 Sep, Dorsalgia, unspecified M54.9 [facility] [id number] [place] [address] 33336- 4549 Sep, [facility] [id number] [place] [address] 02897- 5381 Sep, [facility] [id number] [place] [address] 85188- 2321 Sep, Falling R29.6 ; Essential hypertension I10 ; Chronic obstructive pulmonary disease, unspecified COPD type J44.9 and BMI 40.0-44.9, adult Z68.41 [facility] [id number] [place] [address] 85676- 4226 Sep, [facility] [id number] [place] [address] 90007- 0205 Sep, [facility] [id number] [place] [address] 55065- 5837 Sep, [facility] [id number] [place] [address] 44174- 9574 Sep, Mild intermittent asthma without complication J45.20 [facility] [id number] [address]- 0959 Sep, [facility] [id number] [place] [address] 88930- 7772 Sep, [facility] [id number] [place] [address] 17824- 6623 Sep, [facility] [id number] [place] [address] 67157- 4771 Sep, [facility] [id number] [place] [address] 00198- 1527 Sep, [facility] [id number] [place] [address] 54938- 3392 15 Sep, 2017 [facility] [address] [address]- 9882 15 Sep, 2017 Essential hypertension I10 [facility] [address] [address]- 7105 15 Sep, 2017 [facility] [address] [address]- 2307 15 Sep, 2017 [facility] [address] [address]- 4127 15 Sep, 2017 [facility] [id number] [place] [address] 74325- 2150 14 Sep, 2017 [facility] [address] [address]- 9616 14 Sep, 2017 [facility] [id number] [place] [address] 25868- 3704 14 Sep, 2017 [facility] [address] [address]- 1248 13 Sep, 2017 [facility] [id number] [place] [address] 67934- 6480 Sep, [facility] [address] [address]- 9977 Sep, [facility] [address] [address]- 8723 Sep, [facility] [address] [address]- 8433 05 Sep, 2017 Mild intermittent asthma without complication J45.20 [facility] [address] [address]- 4947 August, Essential hypertension I10 [facility] [address] [address]- 5425 August, BMI 40.0-44.9, adult Z68.41 ; Dorsalgia, unspecified M54.9 ; Allergic state, initial encounter T78.40XA ; Mild intermittent asthma without complication J45.20 and 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 [facility] [id number] [place] [address] 97822- 4812 August, [facility] [id number] [place] [address] 71727- 2752 August, [facility] [id number] [place] [address] 81642- 4636 August, [facility] [id number] [place] [address] 17794- 5576 August, Reactive depression F32.9 [facility] [id number] [place] [address] 25871- 2696 August, [facility] [id number] [place] [address] 74712- 5633 August, [facility] [id number] [place] [address] 74422- 2390 August, [facility] [id number] [place] [address] 39542- 1695 August, [facility] [id number] [place] [address] 95790- 5501 August, [facility] [id number] [place] [address] 72126- 1415 August, [facility] [id number] [place] [address] 80574- 2568 August, [facility] [id number] [place] [address] 88118- 5510 August, Muscle spasms of both lower extremities M62.838 ; Essential hypertension I10 and Reactive depression F32.9 [facility] [id number] [place] [address] 39685- 2393 August, [facility] [id number] [place] [address] 26287- 8591 Jul, [facility] [address] [address]- 2244 Jul, [facility] [address] [address]- 3649 Jul, [facility] [address] [address]- 1324 Jul, [facility] [address] 9078 Jul, [facility] [address] [address]- 1911 Jul, [facility] [address] [address]- 5264 Jul, [facility] [address] [address]- 4075 Jul, [facility] [id number] [address]- 5856 Jul, Essential hypertension I10 ; Other chronic pain G89.29 ; Dorsalgia, unspecified M54.9 ; Reactive depression F32.9 ; Mild intermittent asthma without complication J45.20 ; Allergic state, initial encounter T78.40XA and Muscle spasms of both lower extremities M62.838 IMMUNIZATIONS No Known Immunizations SOCIAL HISTORY Never Assessed REASON FOR VISIT Re:RE:Handicap [facility] PLAN OF CARE VITAL SIGNS MEDICATIONS [...]
--- OUTSIDE RECORDS SUMMARY | 2018-01-11 17:00 | XMS REPORT ---
Author Author ROSALINA GRAHAM Organization [facility], [place] Address [address] [place] [address] Care Team Providers Care Black Oxide Operator Name Role Phone ROSALINA GRAHAM Unavailable PROBLEMS Type Condition ICD9-CM Code IDB50-NA Code Onset Dates Condition Status SNOMED Code Problem Muscle spasms of both lower extremities M62.838 Active 201782298 Problem Severe episode of recurrent major depressive disorder, without psychotic features F33.2 Active 24743087 Problem Reactive depression F32.9 Active 76250238 Problem Allergic state, initial encounter T78.40XA Active 358593994 Problem Essential hypertension I10 Active 17265974 Problem Dorsalgia, unspecified M54.9 Active 039032266 Problem Other chronic pain G89.29 Active 64426655 Problem Moderate persistent asthma without complication J45.40 Active 444165170 Problem Cervical disc disease with myelopathy M50.00 Active 88582868 Problem Falling R29.6 Active 129366830 Problem Generalized anxiety disorder F41.1 Active 75960446 Problem Panic disorder F41.0 Active 741817702 Problem PTSD (post-traumatic stress disorder) F43.10 Active 94222843 ALLERGIES No Information ENCOUNTERS Encounter Location Date Diagnosis [facility], [place] [id number] [address] Jan, [facility], [place] [address] [address] Dec, [facility] [place] [id number] [place] [address] 75804- 2432 Dec, [facility] [place] [id number] [place] [address] 29272- 0260 Dec, [facility] [place] [id number] [place] [address] 52478- 3989 05 Dec, 2017 BMI 40.0-44.9, adult Z68.41 ; Severe episode of recurrent major depressive disorder, without psychotic features F33.2 ; PTSD (post- traumatic stress disorder) F43.10 and Panic disorder F41.0 [facility] [place] [id number] [place] [address] 18375- 7442 Dec, [facility] [place] [id number] [place] [address] 30478- 7169 Dec, [facility] [place] [id number] [place] [address] 66156- 4242 Dec, Essential hypertension I10 [place] [id number] [place] [address] 45901- 9077 Dec, Severe episode of recurrent major depressive disorder, without psychotic features F33.2 [place] [id number] [place] [address] 19827- 4712 Dec, Severe episode of recurrent major depressive disorder, without psychotic features F33.2 and Generalized anxiety disorder F41.1 [place] [id number] [place] [address] 77080- 8563 Nov, Cervical disc disease with myelopathy M50.00 [place] [id number] [place] [address] 00521- 1378 Nov, Cervical disc disease with myelopathy M50.00 ; Moderate persistent asthma without complication J45.40 and BMI 40.0-44.9, adult Z68.41 [place] [id number] [place] [address] 77375- 9037 Nov, [facility] [place] [id number] [place] [address] 07242- 7035 Nov, [facility] [place] [id number] [place] [address] 59378- 1920 Nov, [facility] [place] [id number] [place] [address] 18815- 4533 Nov, [place] [id number] [address] 0424 Nov, [facility] [place] [address], [place] [address] 4844 Nov, [facility] [place] [id number] [place] [address] 44730- 8255 Nov, [facility] [place] [id number] [place] [address] 80729- 8239 Nov, [facility] [place] [id number] [place] [address] 86214- 9307 Nov, [facility] [place] [id number] [place] [address] 86107- 2257 Nov, Severe episode of recurrent major depressive disorder, without psychotic features F33.2 ; PTSD (post-traumatic stress disorder) F43.10 ; Panic disorder F41.0 and BMI 40.0-44.9, adult Z68.41 [facility] [place] [id number] [place] [address] 60576- 1729 Nov, [facility] [place] [id number] [place] [address] 98203- 3989 Nov, Essential hypertension I10 [facility] [place] [address] [place] [address] 10383- 7563 Nov, Severe episode of recurrent major depressive disorder, without psychotic features F33.2 [facility] [place] [address] [place] [address] 39674- 1894 Nov, Acute pain of left knee M25.562 [facility] [place] [address] [address] 1618 Nov, Severe episode of recurrent major depressive disorder, without psychotic features F33.2 ; PTSD (post-traumatic stress disorder) F43.10 ; Panic disorder F41.0 and BMI 40.0-44.9, adult Z68.41 [facility] [place] [address], [place] [address] 8483 Oct, [facility] [place] [address] [facility] [id number] [place] [address]- 2869 Oct, [facility] [place] [address] [facility] [id number] [place] [address], [place] [address]- 5926 Oct, [facility] [address] [facility] [id number] [place] [address] 2546 Oct, [facility] [place] [address] [facility] [id number] [place] [address], [place] [address] 2546 Oct, Dorsalgia, unspecified M54.9 [facility] [place] [address] [facility] [id number] [place] [address]- 0707 Oct, Severe episode of recurrent major depressive disorder, without psychotic features F33.2 and Generalized anxiety disorder F41.1 [facility] [place] [address] [place] [address]- 7209 Oct, [facility] [place] [id number] [place] [address], [place] [address]- 2712 Oct, [facility] [place] [id number] [place] [address]- 7269 Oct, [facility] [place] [id number] [place] [address], [place] [address]- 5908 Oct, [facility] [place] [id number] [place] [address]- 7379 Oct, [facility] [place] [id number] [place] [address]- 2547 Oct, [facility] [address] [facility] [id number] [place] [address]- 3432 Oct, [facility] [id number] [place] [address]- 6841 Oct, [facility] [address] [facility] [id number] [place] [address]- 7103 Sep, Dorsalgia, unspecified M54.9 [facility] [place] [id number], [place] [address]- 5158 Sep, [facility] [place] [id number] [place] [address] 26235- 2198 Sep, [facility] [place] [id number] [place] [address] 24895- 9775 Sep, Falling R29.6 ; Essential hypertension I10 ; Chronic obstructive pulmonary disease, unspecified COPD type J44.9 and BMI 40.0-44.9, adult Z68.41 [facility] [place] [id number] [place] [address] 90339- 7627 Sep, [facility] [place] [id number] [place] [address] 65193- 8877 Sep, [facility] [place] [id number] [place] [address] 36586- 4458 Sep, [facility] [place] [id number] [place] [address] 42290- 1139 Sep, Mild intermittent asthma without complication J45.20 [facility] [place] [id number] [place] [address] 41609- 6006 Sep, [facility] [place] [id number] [place] [address] 53778- 6225 Sep, [facility] [place] [address], [place] [address]- 6371 Sep, [facility] [place] [id number] [place] [address] 18273- 5887 Sep, [facility] [place] [address], [place] [address]- 1386 Sep, [facility] [place] [id number] [place] [address] 23734- 5128 Sep, [facility] [place] [address], [place] [address]- 8189 Sep, Essential hypertension I10 [facility] [place] [id number], [place] [address]- 5540 15 Sep, 2017 [facility] [place] [address], [place] [address]- 8807 15 Sep, 2017 [facility] [place] [address], [place] [address]- 4710 15 Sep, 2017 [facility] [place] [address] [address]- 9712 14 Sep, 2017 [facility] [place] [address], [place] [address]- 9618 14 Sep, 2017 [facility] [place] [address] [place] [address] 83738- 9106 14 Sep, 2017 [facility] [place] [address] [place] [address] 91477- 4624 13 Sep, 2017 [facility] [place] [id number] [place] [address] 40586- 6752 13 Sep, 2017 [facility] [place] [address], [place] [address]- 8297 13 Sep, 2017 [facility] [place] [address] [place] [address] 25406- 3587 Sep, [facility] [place] [address], [place] [address]- 3598 05 Sep, 2017 Mild intermittent asthma without complication J45.20 [facility] [place] [address], [place] [address]- 1315 August, Essential hypertension I10 [facility] [place] [address], [place] [address]- 5407 August, BMI 40.0-44.9, adult Z68.41 ; Dorsalgia, unspecified M54.9 ; Allergic state, initial encounter T78.40XA ; Mild intermittent asthma without complication J45.20 and 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 [facility] [place] [address], [place] [address]- 5791 August, [facility] [place] [id number], [place] [address]- 9543 August, [facility] [place] [id number] [place] [address] 94417- 1311 August, [facility] [place] [address], [place] [address]- 6910 August, Reactive depression F32.9 [facility] [place] [id number] [place] [address] 41381- 8152 August, [facility] [place] [id number] [place] [address]- 8699 August, [facility] [place] [address], [place] [address]- 9982 August, [facility] [place] [address], [place] [address]- 1249 August, [facility] [place] [address], [place] [address]- 6026 August, [facility] [place] [address], [place] [address]- 6701 August, [facility] [place] [address], [place] [address]- 8633 August, [facility] [place] [address], [place] [address]- 5080 August, Muscle spasms of both lower extremities M62.838 ; Essential hypertension I10 and Reactive depression F32.9 [facility] [place] [address], [place] [address]- 3503 August, [facility] [place] [id number], [place] [address]- 9712 Jul, [facility] [place] [address], [place] [address]- 8471 Jul, [facility] [place] [id number] [address]- 4091 Jul, [facility] [place] [address] [facility] [id number] [address]- 6312 Jul, [facility] [place] [address] [facility] [id number], [place] [address]- 6434 Jul, [facility] [place] [address] [facility] [id number], [place] [address]- 6943 Jul, [facility] [place] [address] [facility] [id number], [place] [address]- 6248 Jul, [facility] [place] [address] [facility] [id number], [place] [address]- 2657 Jul, [facility] [place] [address] [facility] [id number], [place] [address]- 5455 Jul, Essential hypertension I10 ; Other chronic pain G89.29 ; Dorsalgia, unspecified M54.9 ; Reactive depression F32.9 ; Mild intermittent asthma without complication J45.20 ; Allergic state, initial encounter T78.40XA and Muscle spasms of both lower extremities M62.838 IMMUNIZATIONS No Known Immunizations SOCIAL HISTORY Never Assessed REASON FOR VISIT Re:RE:Lovastatin PLAN OF CARE VITAL SIGNS MEDICATIONS Unknown [...]
--- OUTSIDE RECORDS SUMMARY | 2018-01-11 17:00 | XMS REPORT ---
Author Author ROSALINA GRAHAM Organization [facility] Address [address] [place] [address] Care Team Providers Care Block Press Operator Name Role Phone ROSALINA GRAHAM Unavailable PROBLEMS Type Condition ICD9-CM Code KER84-LR Code Onset Dates Condition Status SNOMED Code Problem Muscle spasms of both lower extremities M62.838 Active 634920889 Problem Severe episode of recurrent major depressive disorder, without psychotic features F33.2 Active 17446009 Problem Reactive depression F32.9 Active 94704530 Problem Allergic state, initial encounter T78.40XA Active 913209922 Problem Essential hypertension I10 Active 14370343 Problem Dorsalgia, unspecified M54.9 Active 345168424 Problem Other chronic pain G89.29 Active 49833732 Problem Moderate persistent asthma without complication J45.40 Active 426938769 Problem Cervical disc disease with myelopathy M50.00 Active 15776426 Problem Falling R29.6 Active 309034894 Problem Generalized anxiety disorder F41.1 Active 43063128 Problem Panic disorder F41.0 Active 162956014 Problem PTSD (post-traumatic stress disorder) F43.10 Active 07800210 ALLERGIES No Information ENCOUNTERS Encounter Location Date Diagnosis [facility] [id number] [address] Jan, [facility] [address] [address] Dec, [facility] [id number] [place] [address] 32295- 3083 Dec, [facility] [id number] [place] [address] 19630- 0189 Dec, [facility] [id number] [place] [address] 47418- 9506 05 Dec, 2017 BMI 40.0-44.9, adult Z68.41 ; Severe episode of recurrent major depressive disorder, without psychotic features F33.2 ; PTSD (post- traumatic stress disorder) F43.10 and Panic disorder F41.0 [facility] [id number] [place] [address] 74536- 8273 Dec, [facility] [id number] [place] [address] 74874- 3416 Dec, [facility] [id number] [place] [address] 66725- 9688 Dec, Essential hypertension I10 [facility] [id number] [place] [address] 28472- 6496 Dec, Severe episode of recurrent major depressive disorder, without psychotic features F33.2 [facility] [id number] [place] [address] 28500- 2408 Dec, Severe episode of recurrent major depressive disorder, without psychotic features F33.2 and Generalized anxiety disorder F41.1 [facility] [id number] [place] [address] 69865- 0461 Nov, Cervical disc disease with myelopathy M50.00 [facility] [id number] [place] [address] 36199- 2882 Nov, Cervical disc disease with myelopathy M50.00 ; Moderate persistent asthma without complication J45.40 and BMI 40.0-44.9, adult Z68.41 [facility] [id number] [place] [address] 83405- 6188 Nov, [facility] [id number] [place] [address] 48393- 2428 Nov, [facility] [id number] [place] [address] 72818- 2071 Nov, [facility] [id number] [place] [address] 39158- 4417 Nov, [facility] [id number] [address] Nov, [facility] [address] [address] Nov, [facility] [id number] [place] [address] 80026- 2851 Nov, [facility] [id number] [place] [address] 79951- 4752 Nov, [facility] [id number] [place] [address] 17940- 5233 Nov, [facility] [id number] [place] [address] 74635- 5371 Nov, Severe episode of recurrent major depressive disorder, without psychotic features F33.2 ; PTSD (post-traumatic stress disorder) F43.10 ; Panic disorder F41.0 and BMI 40.0-44.9, adult Z68.41 [facility] [id number] [place] [address] 52794- 4108 Nov, [facility] [id number] [place] [address] 36542- 7101 Nov, Essential hypertension I10 [facility] [id number] [place] [address] 14421- 1221 Nov, Severe episode of recurrent major depressive disorder, without psychotic features F33.2 [facility] [id number] [place] [address] 14692- 0454 Nov, Acute pain of left knee M25.562 [facility] [address] [address] 2686 Nov, Severe episode of recurrent major depressive disorder, without psychotic features F33.2 ; PTSD (post-traumatic stress disorder) F43.10 ; Panic disorder F41.0 and BMI 40.0-44.9, adult Z68.41 [facility] [address] [address] 8138 Oct, [facility] [address] [facility] [id number] [place] [address] 5071 Oct, [facility] [address] [facility] [id number] [place] [address], [place] [address]- 7876 Oct, [facility] [address] [facility] [id number] [place] [address] 2546 Oct, [facility] [address] [facility] [id number] [place] [address], [place] [address] 2546 Oct, Dorsalgia, unspecified M54.9 [facility] [address] [facility] [id number] [place] [address]- 1307 Oct, Severe episode of recurrent major depressive disorder, without psychotic features F33.2 and Generalized anxiety disorder F41.1 [facility] [address] [address] 3025 Oct, [facility] [id number] [place] [address], [place] [address]- 7044 Oct, [facility] [id number] [address]- 3542 Oct, [facility] [id number] [place] [address], [place] [address]- 4389 Oct, [facility] [id number] [address]- 0450 Oct, [facility] [id number] [address] 2540 Oct, [facility] [address] [facility] [id number] [place] [address]- 6401 Oct, [facility] [id number] [address]- 1344 Oct, [facility] [address] [facility] [id number] [place] [address]- 6067 Sep, Dorsalgia, unspecified M54.9 [facility] [id number] [address]- 3310 Sep, [facility] [id number] [place] [address] 20325- 2890 Sep, [facility] [id number] [place] [address] 69940- 0332 Sep, Falling R29.6 ; Essential hypertension I10 ; Chronic obstructive pulmonary disease, unspecified COPD type J44.9 and BMI 40.0-44.9, adult Z68.41 [facility] [id number] [place] [address] 38709- 9321 Sep, [facility] [id number] [place] [address] 00531- 6086 Sep, [facility] [id number] [place] [address] 49169- 3604 Sep, [facility] [id number] [place] [address] 43916- 9854 Sep, Mild intermittent asthma without complication J45.20 [facility] [address] [place] [address] 28240- 9305 Sep, [facility] [id number] [place] [address] 49399- 1635 Sep, [facility] [address] [address]- 0492 Sep, [facility] [id number] [place] [address] 88046- 4547 Sep, [facility] [address] [address]- 5501 Sep, [facility] [id number] [place] [address] 30746- 6660 Sep, [facility] [address] [address]- 3448 Sep, Essential hypertension I10 [facility] [id number] [address]- 4357 15 Sep, 2017 [facility] [address] [address]- 1260 15 Sep, 2017 [facility] [address] [address]- 4620 15 Sep, 2017 [facility] [address] [address]- 3546 14 Sep, 2017 [facility] [address] [address]- 9085 14 Sep, 2017 [facility] [id number] [place] [address] 30684- 7135 14 Sep, 2017 [facility] [address] [place] [address] 73996- 7549 13 Sep, 2017 [facility] [id number] [place] [address] 90796- 5421 13 Sep, 2017 [facility] [address] [address]- 8805 13 Sep, 2017 [facility] [address] [place] [address] 35722- 3444 Sep, [facility] [address] [address]- 6892 05 Sep, 2017 Mild intermittent asthma without complication J45.20 [facility] [address] [address]- 5821 August, Essential hypertension I10 [facility] [address] [address]- 8161 August, BMI 40.0-44.9, adult Z68.41 ; Dorsalgia, unspecified M54.9 ; Allergic state, initial encounter T78.40XA ; Mild intermittent asthma without complication J45.20 and 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 [facility] [address] [address]- 1575 August, [facility] [id number] [address]- 3430 August, [facility] [id number] [place] [address] 30947- 2146 August, [facility] [address] [address]- 6726 August, Reactive depression F32.9 [facility] [id number] [place] [address] 19570- 6750 August, [facility] [id number] [address]- 8330 August, [facility] [address] [address]- 6849 August, [facility] [address] [address]- 9458 August, [facility] [address] [address]- 8799 August, [facility] [address] [address]- 0165 August, [facility] [address] [address]- 1662 August, [facility] [address] [address]- 7912 August, Muscle spasms of both lower extremities M62.838 ; Essential hypertension I10 and Reactive depression F32.9 [facility] [address] [address]- 3708 August, [facility] [id number] [address]- 7248 Jul, [facility] [address] [address]- 6174 Jul, [facility] [id number] [address]- 0654 Jul, [facility] [address] [facility] [id number] [address]- 0392 Jul, [facility] [address] [facility] [id number] [place] [address]- 9191 Jul, [facility] [address] [facility] [id number] [address]- 0175 Jul, [facility] [address] [facility] [id number] [place] 2891 Jul, [facility] [address] [facility] [id number] [address]- 5334 Jul, [facility] [address] [facility] [id number] [address]- 3177 Jul, Essential hypertension I10 ; Other chronic pain G89.29 ; Dorsalgia, unspecified M54.9 ; Reactive depression F32.9 ; Mild intermittent asthma without complication J45.20 ; Allergic state, initial encounter T78.40XA and Muscle spasms of both lower extremities M62.838 IMMUNIZATIONS No Known Immunizations SOCIAL HISTORY Never Assessed REASON FOR VISIT Lovastatin PLAN OF CARE VITAL SIGNS MEDICATIONS Medication Instructions Dosage Frequency Start Date End Date Duration Status Lovastatin 40 mg Orally Once a day 1 tablet with the evening meal 24h Jul, Active RESULTS No Results PROCEDURES No Known [...]
--- OUTSIDE RECORDS SUMMARY | 2018-01-11 17:00 | XMS REPORT ---
Author Author ROSALINA GRAHAM Organization [facility] Address [address] [place] [address] Care Team Providers Care Rubber Off Name Role Phone ROSALINA GRAHAM Unavailable PROBLEMS Type Condition ICD9-CM Code AVI64-HZ Code Onset Dates Condition Status SNOMED Code Problem Muscle spasms of both lower extremities M62.838 Active 359550318 Problem Severe episode of recurrent major depressive disorder, without psychotic features F33.2 Active 27361612 Problem Reactive depression F32.9 Active 64938857 Problem Allergic state, initial encounter T78.40XA Active 914566917 Problem Essential hypertension I10 Active 79689870 Problem Dorsalgia, unspecified M54.9 Active 565604509 Problem Other chronic pain G89.29 Active 10481638 Problem Moderate persistent asthma without complication J45.40 Active 765013381 Problem Cervical disc disease with myelopathy M50.00 Active 61610549 Problem Falling R29.6 Active 324815200 Problem Generalized anxiety disorder F41.1 Active 29055624 Problem Panic disorder F41.0 Active 349482088 Problem PTSD (post-traumatic stress disorder) F43.10 Active 02593251 ALLERGIES No Information ENCOUNTERS Encounter Location Date Diagnosis [facility] [address], [place] [address] Jan, [facility] [address], [place] [address] 24 Dec, 2017 [facility] [address] [place] [address] 87691- 5871 Dec, [facility] [address] [place] [address] 60061- 1577 Dec, [facility] [address] [place] [address] 89298- 2162 14 Dec, 2017 [facility] [id number] [place] [address] 71623- 8664 Dec, [place] [id number] [place] [address] 33987- 7182 Dec, BMI 40.0-44.9, adult Z68.41 ; Severe episode of recurrent major depressive disorder, without psychotic features F33.2 ; PTSD (post- traumatic stress disorder) F43.10 and Panic disorder F41.0 [facility] [id number] [place] [address] 41373- 8078 Dec, [facility] [id number] [place] [address] 39933- 6123 Dec, [place] [id number] [place] [address] 43007- 4182 Dec, Essential hypertension I10 [place] [id number] [place] [address] 91056- 9566 Dec, Severe episode of recurrent major depressive disorder, without psychotic features F33.2 [facility] [id number] [place] [address] 16964- 7277 Dec, Severe episode of recurrent major depressive disorder, without psychotic features F33.2 and Generalized anxiety disorder F41.1 [place] [id number] [place] [address] 48206- 6078 Nov, Cervical disc disease with myelopathy M50.00 [place] [place] [id number] [place] [address] 51664- 4010 Nov, Cervical disc disease with myelopathy M50.00 ; Moderate persistent asthma without complication J45.40 and BMI 40.0-44.9, adult Z68.41 [place] [id number] [place] [address] 43246- 7748 Nov, [place] [id number] [place] [address] 52908- 8466 Nov, [place] [id number] [address] 7585 Nov, [facility] [id number] [place] [address] 35433- 5843 Nov, [facility] [id number] [place] [address] 52999- 5780 Nov, [facility] [id number] [place] [address] 57270- 0705 Nov, [facility] [id number] [place] [address] 86542- 2782 Nov, [facility] [id number] [place] [address] 29591- 3194 Nov, [facility] [id number] [place] [address] 30674- 9496 Nov, [facility] [id number] [place] [address] 58850- 3864 Nov, Severe episode of recurrent major depressive disorder, without psychotic features F33.2 ; PTSD (post-traumatic stress disorder) F43.10 ; Panic disorder F41.0 and BMI 40.0-44.9, adult Z68.41 [facility] [id number] [place] [address] 69286- 6940 Nov, [facility] [address] [place] [address] 11058- 8486 Nov, Essential hypertension I10 [facility] [address] [place] [address] 36213- 6646 Nov, Severe episode of recurrent major depressive disorder, without psychotic features F33.2 [facility] [id number] [place] [address] 21554- 9250 Nov, Acute pain of left knee M25.562 [facility] [address] [place] [address] 02579- 9822 Nov, Severe episode of recurrent major depressive disorder, without psychotic features F33.2 ; PTSD (post-traumatic stress disorder) F43.10 ; Panic disorder F41.0 and BMI 40.0-44.9, adult Z68.41 [facility] [id number] [place] [address] 26794- 7756 Oct, [facility] [id number] [place] [address] 68206- 1166 Oct, [facility] [id number] [place] [address] 12191- 1982 Oct, [facility] [id number] [place] [address] 64277- 0546 Oct, [facility] [id number] [place] [address], [place] [address] 9813 Oct, Dorsalgia, unspecified M54.9 [facility] [id number] [place] [address] 94462- 8599 Oct, Severe episode of recurrent major depressive disorder, without psychotic features F33.2 and Generalized anxiety disorder F41.1 [facility] [id number] [place] [address] 89974- 7363 Oct, [facility] [id number] [place] [address] 58835- 1040 Oct, [facility] [id number] [place] [address] 18985- 4988 Oct, [facility] [id number] [place] [address] 53244- 5810 Oct, [facility] [id number] [place] [address] 48821- 9647 Oct, [facility] [id number] [place] [address] 87987- 5637 Oct, [facility] [id number] [address] 0358 Oct, [facility] [id number] [place] [address] 13921- 8625 Oct, [facility] [address] [place] [address] 40876- 2820 Sep, Dorsalgia, unspecified M54.9 [facility] [id number] [place] [address] 97932- 0243 Sep, [facility] [id number] [place] [address] 05199- 7053 Sep, [facility] [id number] [place] [address] 91990- 3978 Sep, Falling R29.6 ; Essential hypertension I10 ; Chronic obstructive pulmonary disease, unspecified COPD type J44.9 and BMI 40.0-44.9, adult Z68.41 [facility] [id number] [place] [address] 84960- 1588 Sep, [facility] [id number] [place] [address] 83811- 5030 Sep, [facility] [id number] [place] [address] 30825- 9683 Sep, [facility] [id number] [place] [address] 10565- 5858 Sep, Mild intermittent asthma without complication J45.20 [facility] [address] [place] [address] 4615 Sep, [facility] [id number] [place] [address] 61350- 7966 Sep, [facility] [id number] [place] [address] 66039- 5844 Sep, [facility] [id number] [place] [address] 65747- 7394 Sep, [facility] [address] [place] [address] 33780- 4729 Sep, [facility] [id number] [place] [address] 75087- 1496 15 Sep, 2017 [facility] [address], [place] [address]- 6621 15 Sep, 2017 Essential hypertension I10 [facility] [address], [place] [address]- 4579 15 Sep, 2017 [facility] [address], [place] [address]- 8369 15 Sep, 2017 [facility] [address], [place] [address]- 0260 15 Sep, 2017 [facility] [address] [place] [address] 76009- 9687 14 Sep, 2017 [facility] [address], [place] [address]- 3686 14 Sep, 2017 [facility] [address] [place] [address] 26214- 1090 14 Sep, 2017 [facility] [address], [place] [address]- 8784 13 Sep, 2017 [facility] [address] [place] [address] 77658- 1201 Sep, [facility] [address], [place] [address]- 4079 Sep, [facility] [address], [place] [address]- 2996 Sep, [facility] [address], [place] [address]- 0352 05 Sep, 2017 Mild intermittent asthma without complication J45.20 [facility] [address], [place] [address]- 7573 August, Essential hypertension I10 [facility] [address], [place] [address]- 0874 August, BMI 40.0-44.9, adult Z68.41 ; Dorsalgia, unspecified M54.9 ; Allergic state, initial encounter T78.40XA ; Mild intermittent asthma without complication J45.20 and 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 [facility] [id number] [place] [address] 65615- 3952 August, [facility] [id number] [place] [address] 84310- 9327 August, [facility] [id number] [place] [address] 94511- 7469 August, [facility] [id number] [place] [address] 44231- 6100 August, Reactive depression F32.9 [facility] [id number] [place] [address] 37766- 8620 August, [facility] [id number] [place] [address] 62679- 2507 August, [facility] [id number] [place] [address] 61190- 2469 August, [facility] [id number] [place] [address] 64320- 6930 August, [facility] [id number] [place] [address] 85330- 5777 August, [facility] [id number] [place] [address] 08142- 5785 August, [facility] [id number] [place] [address] 89504- 2698 August, [facility] [id number] [place] [address] 59922- 2468 August, Muscle spasms of both lower extremities M62.838 ; Essential hypertension I10 and Reactive depression F32.9 [facility] [id number] [place] [address] 61300- 7575 August, [facility] [id number] [place] [address] 80344- 9133 Jul, [facility] [address], [place] [address]- 2221 Jul, [facility] [address], [place] [address]- 6029 Jul, [facility] [address], [place] [address]- 8385 Jul, [facility] [address] 8445 Jul, [facility] [address], [place] [address]- 9227 Jul, [facility] [address] [address]- 0523 Jul, [facility] [address], [place] [address]- 8370 Jul, [facility] [address], [place] [address]- 7588 Jul, Essential hypertension I10 ; Other chronic pain G89.29 ; Dorsalgia, unspecified M54.9 ; Reactive depression F32.9 ; Mild intermittent asthma without complication J45.20 ; Allergic state, initial encounter T78.40XA and Muscle spasms of both lower extremities M62.838 IMMUNIZATIONS No Known Immunizations SOCIAL HISTORY Never Assessed REASON FOR VISIT Formerly [facility] PLAN OF CARE VITAL SIGNS MEDICATIONS Unknown [...]
--- OUTSIDE RECORDS SUMMARY | 2018-01-11 17:00 | XMS REPORT ---
Author Author ROSALINA GRAHMA Organization [facility] Address [address] [place] [address] Care Team Providers Care Apartment Maintenance Manager Name Role Phone ROSALINA GRAHAM Unavailable PROBLEMS Type Condition ICD9-CM Code MQK32-WR Code Onset Dates Condition Status SNOMED Code Problem Muscle spasms of both lower extremities M62.838 Active 363830218 Problem Severe episode of recurrent major depressive disorder, without psychotic features F33.2 Active 75744418 Problem Reactive depression F32.9 Active 46765292 Problem Allergic state, initial encounter T78.40XA Active 801784307 Problem Essential hypertension I10 Active 13451440 Problem Dorsalgia, unspecified M54.9 Active 702938558 Problem Other chronic pain G89.29 Active 29329368 Problem Moderate persistent asthma without complication J45.40 Active 632688258 Problem Cervical disc disease with myelopathy M50.00 Active 04855085 Problem Falling R29.6 Active 501692355 Problem Generalized anxiety disorder F41.1 Active 79531493 Problem Panic disorder F41.0 Active 318460954 Problem PTSD (post-traumatic stress disorder) F43.10 Active 33760853 ALLERGIES No Information ENCOUNTERS Encounter Location Date Diagnosis [facility] [id number], [place] [address] Jan, [facility] [address], [place] [address] Dec, [facility] [id number] [place] [address] 50646- 6687 Dec, [facility] [id number] [place] [address] 29928- 9158 Dec, [facility] [id number] [place] [address] 68580- 2412 05 Dec, 2017 BMI 40.0-44.9, adult Z68.41 ; Severe episode of recurrent major depressive disorder, without psychotic features F33.2 ; PTSD (post- traumatic stress disorder) F43.10 and Panic disorder F41.0 [facility] [id number] [place] [address] 80305- 1222 Dec, [facility] [id number] [place] [address] 87040- 9467 Dec, [facility] [id number] [place] [address] 52246- 7032 Dec, Essential hypertension I10 [id number] [place] [address] 28253- 8978 Dec, Severe episode of recurrent major depressive disorder, without psychotic features F33.2 [facility] [facility] [id number] [place] [address] 91952- 4966 Dec, Severe episode of recurrent major depressive disorder, without psychotic features F33.2 and Generalized anxiety disorder F41.1 [facility] [facility] [id number] [place] [address] 57181- 4819 Nov, Cervical disc disease with myelopathy M50.00 [address] [facility] [id number] [place] [address] 96969- 1737 Nov, Cervical disc disease with myelopathy M50.00 ; Moderate persistent asthma without complication J45.40 and BMI 40.0-44.9, adult Z68.41 [facility] [facility] [id number] [place] [address] 76215- 2994 Nov, [facility] [id number] [place] [address] 58868- 1703 Nov, [facility] [id number] [place] [address] 47351- 0300 Nov, [facility] [id number] [place] [address] 81234- 6814 Nov, [facility] [facility] [id number], [place] [address] Nov, [facility] [address], [place] [address] 6[address] Nov, [facility] [id number] [place] [address] 80686- 6943 Nov, [facility] [id number] [place] [address] 57566- 6662 Nov, [facility] [id number] [place] [address] 19334- 3179 Nov, [facility] [id number] [place] [address] 95690- 1351 Nov, Severe episode of recurrent major depressive disorder, without psychotic features F33.2 ; PTSD (post-traumatic stress disorder) F43.10 ; Panic disorder F41.0 and BMI 40.0-44.9, adult Z68.41 [facility] [id number] [place] [address] 59863- 3191 Nov, [facility] [id number] [place] [address] 03453- 5085 Nov, Essential hypertension I10 [facility] [id number] [place] [address] 45059- 6428 Nov, Severe episode of recurrent major depressive disorder, without psychotic features F33.2 [facility] [id number] [place] [address] 16219- 4381 Nov, Acute pain of left knee M25.562 [facility] [address], [place] [address] Nov, Severe episode of recurrent major depressive disorder, without psychotic features F33.2 ; PTSD (post-traumatic stress disorder) F43.10 ; Panic disorder F41.0 and BMI 40.0-44.9, adult Z68.41 [facility] [address], [place] [address] Oct, [facility] [address] [id number] [place] [address]- 978[address] Oct, [facility] [id number] [place] [address], [place] [address]- 7306 Oct, [facility] [address] [id number] [place] [address] 2546 Oct, [facility] [address] [id number] [place] [address], [place] [address] 2546 Oct, Dorsalgia, unspecified M54.9 [facility] [address] [id number] [place] [address]- 6162 Oct, Severe episode of recurrent major depressive disorder, without psychotic features F33.2 and Generalized anxiety disorder F41.1 [facility] [address] [address] 9248 Oct, [facility] [id number] [place] [address], [place] [address]- 3191 Oct, [facility] [id number] [address]- 7904 Oct, [facility] [id number] [place] [address], [place] [address]- 7097 Oct, [facility] [id number] [address]- 9318 Oct, [facility] [id number] [address]- 2545 Oct, [facility] [address] [id number] [place] [address]- 5411 Oct, [facility] [id number] [address]- 5311 Oct, [facility] [address] [id number] [place] [address]- 8718 Sep, Dorsalgia, unspecified M54.9 [facility] [id number], [place] [address] 0226 Sep, [facility] [id number] [place] [address] 69236- 1570 Sep, [facility] [id number] [place] [address] 28066- 8108 Sep, Falling R29.6 ; Essential hypertension I10 ; Chronic obstructive pulmonary disease, unspecified COPD type J44.9 and BMI 40.0-44.9, adult Z68.41 [facility] [id number] [place] [address] 34120- 5923 Sep, [facility] [id number] [place] [address] 34656- 0319 Sep, [facility] [id number] [place] [address] 79006- 5535 Sep, [facility] [id number] [place] [address] 80384- 2752 Sep, Mild intermittent asthma without complication J45.20 [facility] [id number] [place] [address] 88036- 7809 Sep, [facility] [id number] [place] [address] 38564- 9612 Sep, [facility] [address], [place] [address]- 7069 Sep, [facility] [id number] [place] [address] 19186- 1325 Sep, [facility] [address], [place] [address]- 9527 Sep, [facility] [id number] [place] [address] 64331- 9023 Sep, [facility] [address], [place] [address]- 7987 Sep, Essential hypertension I10 [facility] [id number], [place] [address]- 96[address] 15 Sep, 2017 [facility] [address], [place] [address]- 2410 15 Sep, 2017 [facility] [address], [place] [address]- 9729 15 Sep, 2017 [facility] [address], [place] [address]- 8422 14 Sep, 2017 [facility] [address], [place] [address]- 6182 14 Sep, 2017 [facility] [id number] [place] [address] 03378- 8559 14 Sep, 2017 [facility] [id number] [place] [address] 89129- 0684 13 Sep, 2017 [facility] [id number] [place] [address] 70505- 7730 13 Sep, 2017 [facility] [address], [place] [address]- 8413 13 Sep, 2017 [facility] [id number] [place] [address] 54850- 6940 Sep, [facility] [address], [place] [address]- 5721 05 Sep, 2017 Mild intermittent asthma without complication J45.20 [facility] [address], [place] [address]- 1212 August, Essential hypertension I10 [facility] [address], [place] [address]- 2829 August, BMI 40.0-44.9, adult Z68.41 ; Dorsalgia, unspecified M54.9 ; Allergic state, initial encounter T78.40XA ; Mild intermittent asthma without complication J45.20 and 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 [facility] [address], [place] [address]- 5604 August, [facility] [id number], [place] [address]- 3510 August, [facility] [id number] [place] [address] 47297- 6196 August, [facility] [address], [place] [address]- 0946 August, Reactive depression F32.9 [facility] [id number] [place] [address] 85143- 3287 August, [facility] [id number] [place] [address]- 7813 August, [facility] [address], [place] [address]- 5630 August, [facility] [address], [place] [address]- 4316 August, [facility] [address], [place] [address]- 9846 August, [facility] [address], [place] [address]- 2417 August, [facility] [address], [place] [address]- 5939 August, [facility] [address], [place] [address]- 5102 August, Muscle spasms of both lower extremities M62.838 ; Essential hypertension I10 and Reactive depression F32.9 [facility] [address], [place] [address]- 6190 August, [facility] [id number], [place] [address]- 3097 Jul, [facility] [address], [place] [address]- 4099 Jul, [facility] [id number], [place] [address]- 3296 Jul, [facility] [address] [id number] [address]- 8648 Jul, [facility] [address] [id number], [place] [address]- 2327 Jul, [facility] [address] [id number], [place] [address]- 5872 Jul, [facility] [address] [id number] [address] Jul, [facility] [address] [id number], [place] [address]- 9989 Jul, [facility] [address] [id number], [place] [address]- [address] Jul, Essential hypertension I10 ; Other chronic pain G89.29 ; Dorsalgia, unspecified M54.9 ; Reactive depression F32.9 ; Mild intermittent asthma without complication J45.20 ; Allergic state, initial encounter T78.40XA and Muscle spasms of both lower extremities M62.838 IMMUNIZATIONS No Known Immunizations SOCIAL HISTORY Never Assessed REASON FOR VISIT Controlled Med Refill PLAN OF CARE VITAL SIGNS MEDICATIONS Medication Instructions Dosage Frequency Start Date End Date Duration Status Xanax XR 0.5 MG Orally Once a day 1 tablet in the morning 24h 30 days Active RESULTS No Results PROCEDURES No Known [...]
--- OUTSIDE RECORDS SUMMARY | 2018-01-11 17:01 | XMS REPORT ---
Author Author LUCI RANGEL Organization [facility] Address [address] [place] [address] Care Team Providers Care Professor Of English Name Role Phone RAFAELALINO RANGEL Unavailable PROBLEMS Type Condition ICD9-CM Code YBT81-LC Code Onset Dates Condition Status SNOMED Code Problem Muscle spasms of both lower extremities M62.838 Active 725067155 Problem Severe episode of recurrent major depressive disorder, without psychotic features F33.2 Active 18195719 Problem Reactive depression F32.9 Active 72726665 Problem Allergic state, initial encounter T78.40XA Active 346698122 Problem Essential hypertension I10 Active 90916409 Problem Dorsalgia, unspecified M54.9 Active 001095326 Problem Other chronic pain G89.29 Active 92179915 Problem Moderate persistent asthma without complication J45.40 Active 846501263 Problem Cervical disc disease with myelopathy M50.00 Active 53047094 Problem Falling R29.6 Active 696035365 Problem Generalized anxiety disorder F41.1 Active 22158965 Problem Panic disorder F41.0 Active 056660512 Problem PTSD (post-traumatic stress disorder) F43.10 Active 21723360 ALLERGIES No Known Allergies ENCOUNTERS Encounter Location Date Diagnosis [facility] [id number] [address] Jan, [facility] [id number] [address] Dec, [facility] [id number] [place] [address] 08491- 6025 Dec, [facility] [id number], [place] [address] Dec, BMI 40.0-44.9, adult Z68.41 ; Severe episode of recurrent major depressive disorder, without psychotic features F33.2 ; PTSD (post- traumatic stress disorder) F43.10 and Panic disorder F41.0 [facility] [id number] [place] [address] 39029- 7921 Dec, [facility] [id number] [place] [address] 48596- 8138 Dec, [facility] [id number] [place] [address] 26317- 4639 Dec, Essential hypertension I10 [facility] [id number] [place] [address] 54357- 8281 Dec, Severe episode of recurrent major depressive disorder, without psychotic features F33.2 [facility] [id number] [place] [address] 08304- 0612 Dec, Severe episode of recurrent major depressive disorder, without psychotic features F33.2 and Generalized anxiety disorder F41.1 [facility] [id number] [place] [address] 28126- 5399 Nov, Cervical disc disease with myelopathy M50.00 [facility] [id number] [place] [address] 25160- 0852 Nov, Cervical disc disease with myelopathy M50.00 ; Moderate persistent asthma without complication J45.40 and BMI 40.0-44.9, adult Z68.41 [facility] [id number] [place] [address] 09902- 3010 Nov, [facility] [id number] [place] [address] 13883- 4487 Nov, [facility] [id number] [place] [address] 02639- 8349 Nov, [facility] [id number] [place] [address] 34720- 7343 Nov, [facility] [id number] [place] [address] 45158- 6475 Nov, [facility] [address] [place] [address] 6[address] Nov, [facility] [address], [place] [address] Nov, [facility] [address] [address] 8783 Nov, [facility] [id number] [place] [address] 69332- 7563 Nov, [facility] [id number] [place] [address] 11704- 0062 Nov, Severe episode of recurrent major depressive disorder, without psychotic features F33.2 ; PTSD (post-traumatic stress disorder) F43.10 ; Panic disorder F41.0 and BMI 40.0-44.9, adult Z68.41 [facility] [id number] [place] [address] 19837- 3525 Nov, [facility] [id number] [place] [address] 51513- 4617 Nov, Essential hypertension I10 [facility] [id number] [place] [address] 17238- 8712 Nov, Severe episode of recurrent major depressive disorder, without psychotic features F33.2 [facility] [address] [address] Nov, Acute pain of left knee M25.562 [facility] [id number] [place] [address] 11700- 5018 Nov, Severe episode of recurrent major depressive disorder, without psychotic features F33.2 ; PTSD (post-traumatic stress disorder) F43.10 ; Panic disorder F41.0 and BMI 40.0-44.9, adult Z68.41 [facility] [address] [address] Oct, [facility] [id number] [place] [address] 39774- 3786 Oct, [facility] [address] [facility] [id number] [place] [address] 5111 Oct, [facility] [address] [facility] [id number] [place] [address], [place] [address]- 1488 Oct, [facility] [address] [facility] [id number] [place] [address]- 1482 Oct, Dorsalgia, unspecified M54.9 [facility] [id number] [place] [address], [place] [address]- 6519 Oct, Severe episode of recurrent major depressive disorder, without psychotic features F33.2 and Generalized anxiety disorder F41.1 [facility] [id number] [place] [address], [place] [address]- 7780 Oct, [facility] [address] [place] [address] 9347 Oct, [facility] [id number] [place] [address] 26144- 8565 Oct, [facility] [id number] [place] [address]- 6976 Oct, [facility] [address] [place] [address]- 5739 Oct, [facility] [address] [place] [address]- 7009 Oct, [facility] [id number], [place] [address] 2186 Oct, [facility] [address] [facility] [id number] [place] [address]- 4746 Oct, [facility] [id number] [place] [address]- 1231 Sep, Dorsalgia, unspecified M54.9 [facility] [id number] [place] [address]- 0785 Sep, [facility] [id number] [address]- 2557 Sep, [facility] [id number] [place] [address] 61431- 4416 Sep, Falling R29.6 ; Essential hypertension I10 ; Chronic obstructive pulmonary disease, unspecified COPD type J44.9 and BMI 40.0-44.9, adult Z68.41 [facility] [id number] [place] [address] 45322- 1039 Sep, [facility] [id number] [place] [address] 04284- 7647 Sep, [facility] [id number] [place] [address] 66317- 2710 Sep, [facility] [id number] [place] [address] 16481- 1453 Sep, Mild intermittent asthma without complication J45.20 [facility] [id number] [place] [address] 80404- 5685 Sep, [facility] [id number] [place] [address] 08007- 6024 Sep, [facility] [id number] [place] [address] 61224- 5841 Sep, [facility] [address], [place] [address]- 9995 Sep, [facility] [id number] [place] [address] 43441- 2760 Sep, [facility] [id number] [place] [address] 10358- 9093 Sep, [facility] [id number] [place] [address] 14644- 3034 Sep, Essential hypertension I10 [facility] [address], [place] [address]- 4572 Sep, [facility] [id number] [place] [address]- 9418 15 Sep, 2017 [facility] [address], [place] [address]- 1134 15 Sep, 2017 [facility] [address], [place] [address]- 5616 14 Sep, 2017 [facility] [id number] [place] [address] 80198- 8110 14 Sep, 2017 [facility] [id number] [place] [address] 41507- 7377 14 Sep, 2017 [facility] [id number] [place] [address] 78307- 8784 13 Sep, 2017 [facility] [id number] [place] [address] 91825- 8016 Sep, [facility] [id number] [place] [address] 84362- 6198 Sep, [facility] [address], [place] [address]- 6184 Sep, [facility] [id number] [place] [address] 58345- 4033 05 Sep, 2017 Mild intermittent asthma without complication J45.20 [facility] [address], [place] [address]- 8814 August, Essential hypertension I10 [facility] [id number], [place] [address]- 9396 August, BMI 40.0-44.9, adult Z68.41 ; Dorsalgia, unspecified M54.9 ; Allergic state, initial encounter T78.40XA ; Mild intermittent asthma without complication J45.20 and 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 [facility] [address], [place] [address]- 6365 August, [facility] [id number] [place] [address] 98097- 4027 August, [facility] [address], [place] [address]- 2589 August, [facility] [place] [id number] [place] [address]- 1090 August, Reactive depression F32.9 [facility] [id number] [place] [address]- 6341 August, [facility] [id number] [place] [address] 67204- 4654 August, [facility] [id number] [place] [address]- 5659 August, [facility] [id number], [place] [address]- 3121 August, [facility] [id number] [place] [address], [place] [address]- 9662 August, [facility] [address] [place] [address]- 3402 August, [facility] [id number] [place] [address] 02116- 4745 August, [facility] [address], [place] [address]- 3001 August, Muscle spasms of both lower extremities M62.838 ; Essential hypertension I10 and Reactive depression F32.9 [facility] [address], [place] [address]- 2810 August, [facility] [id number], [place] [address]- 1016 Jul, [facility] [address], [place] [address]- 4024 Jul, [facility] [address], [place] [address]- 3460 Jul, [facility] [address] [place] [address]- 9669 Jul, [facility] [id number], [place] [address]- 8643 Jul, [facility] [address] [place] [address]- 7766 Jul, [facility] [address] [place] [address]- 3385 Jul, [facility] [id number] [place] [address] 81998- 1934 Jul, [facility] [id number] [place] [address] 10387- 5368 Jul, Essential hypertension I10 ; Other chronic pain G89.29 ; Dorsalgia, unspecified M54.9 ; Reactive depression F32.9 ; Mild intermittent asthma without complication J45.20 ; Allergic state, initial encounter T78.40XA and Muscle spasms of both lower extremities M62.838 IMMUNIZATIONS No Known Immunizations SOCIAL HISTORY Never Assessed [facility] Activity Details Follow Up 4 Weeks Reason: VITAL SIGNS Height 66 in 2017-11-17 Weight 271.0 lbs 2017-11-17 Heart Rate 78 bpm 2017-11-17 Respiratory Rate 20 2017-11-17 Oximetry 98 % 2017-11-17 BMI 43.74 kg/m2 2017-11-17 Blood pressure systolic 138 mmHg 2017-11-17 Blood pressure diastolic 88 mmHg 2017-11-17 MEDICATIONS Medication Instructions Dosage Frequency Start Date End Date Duration Status ProAir HFA 108 (90 Base) MCG/ACT Inhalation every 6 hrs 2 puffs as needed 6h Sep, Active Lovastatin 40 MG Orally Once a day 1 tablet with the evening meal 24h Jul, Active Breo Ellipta 100-25 MCG/INH Inhalation Once a day 1 puff 24h Sep, Active Gabapentin 300 MG Orally twice a day 1 capsule 12h Active Atenolol 50 MG Orally Once a day 1 tablet 24h Active Singulair 10 mg Orally Once a day 1 tablet 24h Active Allergy 12 MG Orally every 12 hrs 1 tablet as needed 12h Active Xanax XR 0.5 MG Orally Once a day 1 tablet in the morning 24h Active Baclofen 10 mg Orally Three times a day 1 tablet with food or milk 8h Oct, 30 day(s) Active Losartan Potassium 100 mg Orally Once a day 1 tablet 24h Active Zoloft 100 MG Orally Once a day 1.5 tablets daily for 1 week then take 2 tabs daily 24h 30 days Active RESULTS No Results [...]
--- OUTSIDE RECORDS SUMMARY | 2018-01-11 17:01 | XMS REPORT ---
Author Author ROSALINA GRAHAM Organization [facility] Address [address] [place] [address] Care Team Providers Care Passenger Rate Clerk Name Role Phone ROSALINA GRAHAM Unavailable PROBLEMS Type Condition ICD9-CM Code AEN35-RD Code Onset Dates Condition Status SNOMED Code Problem Muscle spasms of both lower extremities M62.838 Active 311774720 Problem Severe episode of recurrent major depressive disorder, without psychotic features F33.2 Active 16549729 Problem Reactive depression F32.9 Active 27420844 Problem Allergic state, initial encounter T78.40XA Active 451795379 Problem Essential hypertension I10 Active 43859062 Problem Dorsalgia, unspecified M54.9 Active 654059677 Problem Other chronic pain G89.29 Active 36462496 Problem Moderate persistent asthma without complication J45.40 Active 135179224 Problem Cervical disc disease with myelopathy M50.00 Active 80173322 Problem Falling R29.6 Active 877946231 Problem Generalized anxiety disorder F41.1 Active 71682386 Problem Panic disorder F41.0 Active 279779136 Problem PTSD (post-traumatic stress disorder) F43.10 Active 45972523 ALLERGIES No Information ENCOUNTERS Encounter Location Date Diagnosis [facility] [id number] [address] Jan, [facility] [id number] [address] Dec, [facility] [id number] [place] [address] 15084- 4153 Dec, [facility] [address] [place] [address] 44034- 3941 Dec, BMI 40.0-44.9, adult Z68.41 ; Severe episode of recurrent major depressive disorder, without psychotic features F33.2 ; PTSD (post- traumatic stress disorder) F43.10 and Panic disorder F41.0 [facility] [id number] [address] Dec, [facility] [id number] [place] [address] 01075- 4770 Dec, [facility] [id number] [place] [address] 76176- 2533 Dec, Essential hypertension I10 [facility] [id number] [place] [address] 63750- 0157 Dec, Severe episode of recurrent major depressive disorder, without psychotic features F33.2 [facility] [id number] [place] [address] 06071- 9224 Dec, Severe episode of recurrent major depressive disorder, without psychotic features F33.2 and Generalized anxiety disorder F41.1 [facility] [id number] [place] [address] 94655- 1229 Nov, Cervical disc disease with myelopathy M50.00 [facility] [id number] [place] [address] 30214- 2043 Nov, Cervical disc disease with myelopathy M50.00 ; Moderate persistent asthma without complication J45.40 and BMI 40.0-44.9, adult Z68.41 [facility] [id number] [place] [address] 60445- 7521 Nov, [facility] [id number] [place] [address] 34511- 3846 Nov, [facility] [id number] [place] [address] 25513- 3759 Nov, [facility] [id number] [place] [address] 55738- 3813 Nov, [facility] [address] [place] [address] 84074- 6716 Nov, [facility] [id number] [address] 1669 Nov, [facility] [id number] [place] [address] 56138- 7195 Nov, [facility] [id number] [place] [address] 81325- 2252 Nov, [facility] [id number] [place] [address] 57473- 5812 Nov, [facility] [id number] [place] [address] 42966- 9686 Nov, Severe episode of recurrent major depressive disorder, without psychotic features F33.2 ; PTSD (post-traumatic stress disorder) F43.10 ; Panic disorder F41.0 and BMI 40.0-44.9, adult Z68.41 [facility] [id number] [place] [address] 60962- 4930 Nov, [facility] [id number] [place] [address] 11755- 8256 Nov, Essential hypertension I10 [facility] [id number] [place] [address] 39282- 0211 Nov, Severe episode of recurrent major depressive disorder, without psychotic features F33.2 [facility] [address] [place] [address] 30139- 0959 Nov, Acute pain of left knee M25.562 [facility] [id number] [place] [address] 20208- 2964 Nov, Severe episode of recurrent major depressive disorder, without psychotic features F33.2 ; PTSD (post-traumatic stress disorder) F43.10 ; Panic disorder F41.0 and BMI 40.0-44.9, adult Z68.41 [facility] [address] [place] [address] 13651- 8807 Oct, [facility] [address] [place] [address] 85357- 0940 Oct, [facility] [address] [facility] [address] [id number] [place] [address]- 2997 Oct, [facility] [address] [facility] [id number] [place] [address], [place] [address]- 4213 Oct, [facility] [address] [facility] [address] [id number] [place] [address]- 5064 Oct, Dorsalgia, unspecified M54.9 [facility] [id number] [place] [address], [place] [address]- 5379 Oct, Severe episode of recurrent major depressive disorder, without psychotic features F33.2 and Generalized anxiety disorder F41.1 [facility] [id number] [place] [address], [place] [address]- 1700 Oct, [facility] [id number] [place] [address] 0009 Oct, [facility] [id number] [place] [address], [place] [address]- 7816 Oct, [facility] [id number] [place] [address]- 1733 Oct, [facility] [address] [place] [address], [place] [address]- 5355 Oct, [facility] [address] [place] [address]- 9358 Oct, [facility] [id number] [place] [address]- 8132 Oct, [facility] [address] [facility] [address] [id number] [place] [address]- 2551 Oct, [facility] [id number] [place] [address]- 4439 Sep, Dorsalgia, unspecified M54.9 [facility] [id number] [place] [address]- 2373 Sep, [facility] [id number] [place] [address] 07906- 6433 Sep, [facility] [id number] [place] [address] 74563- 5227 Sep, Falling R29.6 ; Essential hypertension I10 ; Chronic obstructive pulmonary disease, unspecified COPD type J44.9 and BMI 40.0-44.9, adult Z68.41 [facility] [id number] [place] [address] 25734- 7581 Sep, [facility] [id number] [place] [address] 07756- 4512 Sep, [facility] [id number] [place] [address] 63824- 1454 Sep, [facility] [id number] [place] [address] 54792- 3094 Sep, Mild intermittent asthma without complication J45.20 [facility] [id number] [place] [address] 73750- 7950 Sep, [facility] [id number] [place] [address] 00690- 7615 Sep, [facility] [id number] [place] [address] 77366- 7782 Sep, [facility] [id number] [place] [address] 90661- 4746 Sep, [facility] [id number] [place] [address] 38755- 1070 Sep, [facility] [id number] [place] [address] 98741- 1830 Sep, [facility] [id number] [place] [address] 85603- 3109 Sep, Essential hypertension I10 [facility] [id number] [place] [address] 93580- 7816 Sep, [facility] [id number] [address]- 1450 15 Sep, 2017 [facility] [address], [place] [address]- 5251 15 Sep, 2017 [facility] [address], [place] [address]- 8561 14 Sep, 2017 [facility] [address], [place] [address]- 9833 14 Sep, 2017 [facility] [address], [place] [address]- 2145 14 Sep, 2017 [facility] [address] [place] [address] 30792- 8066 13 Sep, 2017 [facility] [address] [place] [address] 12343- 9185 13 Sep, 2017 [facility] [id number] [place] [address] 26610- 0421 Sep, [facility] [address], [place] [address]- 5004 Sep, [facility] [id number] [place] [address] 18730- 9080 05 Sep, 2017 Mild intermittent asthma without complication J45.20 [facility] [address], [place] [address]- 3520 August, Essential hypertension I10 [facility] [address], [place] [address]- 8853 August, BMI 40.0-44.9, adult Z68.41 ; Dorsalgia, unspecified M54.9 ; Allergic state, initial encounter T78.40XA ; Mild intermittent asthma without complication J45.20 and 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 [facility] [address], [place] [address]- 6026 August, [facility] [id number] [place] [address] 18352- 7164 August, [facility] [address], [place] [address]- 9759 August, [facility] [id number] [place] [address] 58803- 6752 August, Reactive depression F32.9 [facility] [id number] [place] [address] 65627- 2719 August, [facility] [id number] [place] [address] 10668- 8002 August, [facility] [address] [place] [address] 64872- 3480 August, [facility] [id number] [place] [address] 41549- 8209 August, [facility] [id number] [place] [address] 64516- 5536 August, [facility] [address] [place] [address] 47544- 0014 August, [facility] [address] [place] [address] 66782- 4160 August, [facility] [address] [address]- 1477 August, Muscle spasms of both lower extremities M62.838 ; Essential hypertension I10 and Reactive depression F32.9 [facility] [address], [place] [address]- 8079 August, [facility] [address], [place] [address]- 6483 Jul, [facility] [id number] [place] [address] 12839- 2451 Jul, [facility] [address], [place] [address]- 5437 Jul, [facility] [id number] [place] [address] 57622- 2207 Jul, [facility] [address] [facility] [address] [id number] [address]- 8838 Jul, [facility] [address] [facility] [address] [id number] 6065 Jul, [facility] [address] [facility] [address] [id number] [address]- 5148 Jul, [facility] [address] [facility] [address] [id number] 7563 Jul, [facility] [address] [facility] [address] [id number] [address]- 8153 Jul, Essential hypertension I10 ; Other chronic pain G89.29 ; Dorsalgia, unspecified M54.9 ; Reactive depression F32.9 ; Mild intermittent asthma without complication J45.20 ; Allergic state, initial encounter T78.40XA and Muscle spasms of both lower extremities M62.838 IMMUNIZATIONS No Known Immunizations SOCIAL HISTORY Never Assessed REASON FOR VISIT PLAN OF CARE VITAL SIGNS MEDICATIONS Unknown [...]
--- OUTSIDE RECORDS SUMMARY | 2018-01-11 17:01 | XMS REPORT ---
Author Author ROSALINA GRAHAM Organization [facility] Address [address] [place] [address] Care Team Providers Care [employer] Name Role Phone ROSALINA GRAHAM Unavailable PROBLEMS Type Condition ICD9-CM Code RGB80-KE Code Onset Dates Condition Status SNOMED Code Problem Muscle spasms of both lower extremities M62.838 Active 306864005 Problem Severe episode of recurrent major depressive disorder, without psychotic features F33.2 Active 97343601 Problem Reactive depression F32.9 Active 43434442 Problem Allergic state, initial encounter T78.40XA Active 107537906 Problem Essential hypertension I10 Active 05439566 Problem Dorsalgia, unspecified M54.9 Active 387086991 Problem Other chronic pain G89.29 Active 80520574 Problem Moderate persistent asthma without complication J45.40 Active 878662068 Problem Cervical disc disease with myelopathy M50.00 Active 68554871 Problem Falling R29.6 Active 939317064 Problem Generalized anxiety disorder F41.1 Active 69820537 Problem Panic disorder F41.0 Active 481675841 Problem PTSD (post-traumatic stress disorder) F43.10 Active 59192248 ALLERGIES No Information ENCOUNTERS Encounter Location Date Diagnosis [facility] [id number] [address] Jan, [facility] [id number] [address] Dec, [facility] [id number] [place] [address] 93444- 6419 Dec, [facility] [id number] [place] [address] 27563- 4057 Dec, BMI 40.0-44.9, adult Z68.41 ; Severe episode of recurrent major depressive disorder, without psychotic features F33.2 ; PTSD (post- traumatic stress disorder) F43.10 and Panic disorder F41.0 [facility] [id number] [address] Dec, [facility] [id number] [place] [address] 30231- 3418 Dec, [facility] [id number] [place] [address] 39270- 9196 Dec, Essential hypertension I10 [facility] [id number] [place] [address] 99370- 9980 Dec, Severe episode of recurrent major depressive disorder, without psychotic features F33.2 [facility] [id number] [place] [address] 27959- 7868 Dec, Severe episode of recurrent major depressive disorder, without psychotic features F33.2 and Generalized anxiety disorder F41.1 [id number] [place] [address] 51650- 5484 Nov, Cervical disc disease with myelopathy M50.00 [facility] [id number] [place] [address] 78938- 5434 Nov, Cervical disc disease with myelopathy M50.00 ; Moderate persistent asthma without complication J45.40 and BMI 40.0-44.9, adult Z68.41 [facility] [id number] [place] [address] 44279- 4726 Nov, [facility] [id number] [place] [address] 71083- 9109 Nov, [facility] [id number] [place] [address] 38371- 8626 Nov, [facility] [id number] [place] [address] 91436- 8050 Nov, [facility] [id number] [place] [address] 56152- 9665 Nov, [facility] [id number] [address] 69[address] Nov, [facility] [id number] [place] [address] 00653- 6051 Nov, [facility] [id number] [place] [address] 51453- 4135 Nov, [facility] [id number] [place] [address] 84986- 2420 Nov, [facility] [id number] [place] [address] 20880- 3623 Nov, Severe episode of recurrent major depressive disorder, without psychotic features F33.2 ; PTSD (post-traumatic stress disorder) F43.10 ; Panic disorder F41.0 and BMI 40.0-44.9, adult Z68.41 [facility] [id number] [place] [address] 02792- 5890 Nov, [facility] [id number] [place] [address] 01070- 4852 Nov, Essential hypertension I10 [facility] [id number] [place] [address] 13416- 0105 Nov, Severe episode of recurrent major depressive disorder, without psychotic features F33.2 [facility] [id number] [place] [address] 62939- 0141 Nov, Acute pain of left knee M25.562 [facility] [id number] [place] [address] 41529- 1447 Nov, Severe episode of recurrent major depressive disorder, without psychotic features F33.2 ; PTSD (post-traumatic stress disorder) F43.10 ; Panic disorder F41.0 and BMI 40.0-44.9, adult Z68.41 [facility] [id number] [place] [address] 78503- 1763 Oct, [facility] [id number] [place] [address] 74942- 9699 Oct, [facility] [address] [facility] [id number] [place] [address]- 6046 Oct, [facility] [address] [facility] [id number] [place] [address], [place] [address]- 2472 Oct, [facility] [address] [facility] [id number] [place] [address]- 1774 Oct, Dorsalgia, unspecified M54.9 [facility] [id number] [place] [address], [place] [address]- 7056 Oct, Severe episode of recurrent major depressive disorder, without psychotic features F33.2 and Generalized anxiety disorder F41.1 [facility] [id number] [place] [address], [place] [address]- 4607 Oct, [facility] [id number] [place] [address]- 4746 Oct, [facility] [id number] [place] [address], [place] [address]- 6330 Oct, [facility] [id number] [place] [address]- 4641 Oct, [facility] [id number] [place] [address], [place] [address]- 0183 Oct, [facility] [address] [place] [address]- 0213 Oct, [facility] [id number] [place] [address]- 6839 Oct, [facility] [address] [facility] [id number] [place] [address]- 1200 Oct, [facility] [id number] [place] [address]- 6333 Sep, Dorsalgia, unspecified M54.9 [facility] [id number] [place] [address]- 7435 Sep, [facility] [id number] [place] [address] 09612- 9380 Sep, [facility] [id number] [place] [address] 21497- 4414 Sep, Falling R29.6 ; Essential hypertension I10 ; Chronic obstructive pulmonary disease, unspecified COPD type J44.9 and BMI 40.0-44.9, adult Z68.41 [facility] [id number] [place] [address] 07662- 4834 Sep, [facility] [id number] [place] [address] 22515- 8223 Sep, [facility] [id number] [place] [address] 09422- 3736 Sep, [facility] [id number] [place] [address] 77791- 8265 Sep, Mild intermittent asthma without complication J45.20 [facility] [id number] [place] [address] 43121- 7834 Sep, [facility] [id number] [place] [address] 35935- 2260 Sep, [facility] [id number] [place] [address] 68356- 6155 Sep, [facility] [id number] [place] [address] 81233- 6254 Sep, [facility] [id number] [place] [address] 52702- 2081 Sep, [facility] [id number] [place] [address] 43887- 7948 Sep, [facility] [id number] [place] [address] 98173- 9404 Sep, Essential hypertension I10 [facility] [id number] [place] [address] 37453- 1159 Sep, [facility] [id number] [address]- 4227 15 Sep, 2017 [facility] [address], [place] [address]- 4140 15 Sep, 2017 [facility] [address], [place] [address]- 7509 14 Sep, 2017 [facility] [address], [place] [address]- 9888 14 Sep, 2017 [facility] [address], [place] [address]- 0993 14 Sep, 2017 [facility] [id number] [place] [address] 42527- 1805 13 Sep, 2017 [facility] [id number] [place] [address] 21737- 8751 13 Sep, 2017 [facility] [id number] [place] [address] 39276- 1277 Sep, [facility] [address], [place] [address]- 9707 Sep, [facility] [id number] [place] [address] 08623- 9371 05 Sep, 2017 Mild intermittent asthma without complication J45.20 [facility] [address] [address]- 4556 August, Essential hypertension I10 [facility] [address], [place] [address]- 5867 August, BMI 40.0-44.9, adult Z68.41 ; Dorsalgia, unspecified M54.9 ; Allergic state, initial encounter T78.40XA ; Mild intermittent asthma without complication J45.20 and 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 [facility] [address], [place] [address]- 7056 August, [facility] [id number] [place] [address] 43044- 8211 August, [facility] [address], [place] [address]- 7196 August, [facility] [id number] [place] [address] 58027- 5669 August, Reactive depression F32.9 [facility] [id number] [place] [address] 94101- 5413 August, [facility] [id number] [place] [address] 87305- 4885 August, [facility] [id number] [place] [address] 15130- 8949 August, [facility] [id number] [place] [address] 91403- 3513 August, [facility] [id number] [place] [address] 77565- 6098 August, [facility] [id number] [place] [address] 08034- 3716 August, [facility] [id number] [place] [address] 05414- 5109 August, [facility] [id number] [address]- 8228 August, Muscle spasms of both lower extremities M62.838 ; Essential hypertension I10 and Reactive depression F32.9 [facility] [address], [place] [address]- 9818 August, [facility] [address], [place] [address]- 5570 Jul, [facility] [id number] [place] [address] 79560- 3152 Jul, [facility] [address], [place] [address]- 3765 Jul, [facility] [id number] [place] [address] 86471- 4924 Jul, [facility] [address] [facility] [id number], [place] [address]- 7047 Jul, [facility] [address] [facility] [id number] 6180 Jul, [facility] [address] [facility] [id number], [place] [address]- 0515 Jul, [facility] [address] [facility] [id number] 8914 Jul, [facility] [address] [facility] [id number], [place] [address]- 2286 Jul, Essential hypertension I10 ; Other chronic pain G89.29 ; Dorsalgia, unspecified M54.9 ; Reactive depression F32.9 ; Mild intermittent asthma without complication J45.20 ; Allergic state, initial encounter T78.40XA and Muscle spasms of both lower extremities M62.838 IMMUNIZATIONS No Known Immunizations SOCIAL HISTORY Never Assessed REASON FOR VISIT Urgent PLAN OF CARE VITAL SIGNS MEDICATIONS Unknown [...]
--- OUTSIDE RECORDS SUMMARY | 2018-01-11 17:01 | XMS REPORT ---
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 Concession Manager Name Role Phone ROSALINA GRAHAM Unavailable PROBLEMS Type Condition ICD9-CM Code FAZ73-EI Code Onset Dates Condition Status SNOMED Code Problem Muscle spasms of both lower extremities M62.838 Active 424521332 Problem Severe episode of recurrent major depressive disorder, without psychotic features F33.2 Active 83933133 Problem Reactive depression F32.9 Active 55332483 Problem Allergic state, initial encounter T78.40XA Active 366044495 Problem Essential hypertension I10 Active 25915059 Problem Dorsalgia, unspecified M54.9 Active 438220790 Problem Other chronic pain G89.29 Active 70410666 Problem Moderate persistent asthma without complication J45.40 Active 692736550 Problem Cervical disc disease with myelopathy M50.00 Active 78200845 Problem Falling R29.6 Active 241461450 Problem Generalized anxiety disorder F41.1 Active 38116580 Problem Panic disorder F41.0 Active 668704290 Problem PTSD (post-traumatic stress disorder) F43.10 Active 40932547 ALLERGIES No Information ENCOUNTERS Encounter Location Date Diagnosis [facility] [id number] [place] [address] 49549- 0886 Dec, [facility] [id number] [place] [address] 00603- 5565 Dec, [facility] [id number] [place] [address] 60589- 3299 Nov, Cervical disc disease with myelopathy M50.00 [facility] [id number] [address] 9263 Nov, Cervical disc disease with myelopathy M50.00 ; Moderate persistent asthma without complication J45.40 and BMI 40.0-44.9, adult Z68.41 [facility] [address] [place] [address] 08[address] Nov, [facility] [id number] [place] [address] 33354- 7722 Nov, [facility] [id number] [place] [address] 9076 Nov, [facility] [id number] [place] [address] 82880- 2463 Nov, [facility] [id number] [place] [address] 6062 Nov, [facility] [id number] [place] [address] 18145- 9316 Nov, [facility] [id number] [place] [address] 17892- 6633 Nov, [facility] [id number] [place] [address] 40043- 5923 Nov, [facility] [id number] [place] [address] 88645- 9814 Nov, [facility] [address], [place] [address] 2579 Nov, Severe episode of recurrent major depressive disorder, without psychotic features F33.2 ; PTSD (post-traumatic stress disorder) F43.10 ; Panic disorder F41.0 and BMI 40.0-44.9, adult Z68.41 [facility] [address], [place] [address] 7[address] Nov, [facility] [address], [place] [address] 9902 Nov, Essential hypertension I10 [facility] [address], [place] [address] 9071 Nov, Severe episode of recurrent major depressive disorder, without psychotic features F33.2 [facility] [id number], [place] [address] 2311 Nov, Acute pain of left knee M25.562 [facility] [id number] [place] [address] 45957- 0318 Nov, Severe episode of recurrent major depressive disorder, without psychotic features F33.2 ; PTSD (post-traumatic stress disorder) F43.10 ; Panic disorder F41.0 and BMI 40.0-44.9, adult Z68.41 [facility] [id number] [place] [address] 03586- 2484 Oct, [facility] [id number] [place] [address] 79079- 1876 Oct, [facility] [id number] [place] [address] 55961- 2071 Oct, [facility] [id number] [place] [address] 68665- 3031 Oct, [facility] [id number] [place] [address] 90742- 1259 Oct, Dorsalgia, unspecified M54.9 [facility] [id number] [place] [address] 30791- 8965 Oct, Severe episode of recurrent major depressive disorder, without psychotic features F33.2 and Generalized anxiety disorder F41.1 [facility] [id number] [place] [address] 88870- 8910 Oct, [facility] [address], [place] [address]- 2228 Oct, [facility] [id number] [place] [address] 46705- 7353 Oct, [facility] [id number], [place] [address]- 8914 Oct, [facility] [id number] [place] [address] 06883- 1588 Oct, [facility] [address], [place] [address]- 3477 Oct, [facility] [id number] [place] [address] 69302- 3820 Oct, [facility] [id number] [place] [address] 77146- 9998 Oct, [facility] [id number] [place] [address] 12595- 3132 Sep, Dorsalgia, unspecified M54.9 [facility] [id number] [place] [address] 80744- 8588 Sep, [facility] [id number] [place] [address] 48981- 1208 Sep, [facility] [id number] [place] [address] 96076- 2412 Sep, Falling R29.6 ; Essential hypertension I10 ; Chronic obstructive pulmonary disease, unspecified COPD type J44.9 and BMI 40.0-44.9, adult Z68.41 [facility] [id number] [place] [address] 05867- 5165 Sep, [facility] [id number] [place] [address] 69515- 5769 Sep, [facility] [id number] [place] [address] 16541- 8695 Sep, [facility] [id number] [place] [address] 13123- 5635 Sep, Mild intermittent asthma without complication J45.20 [facility] [id number] [place] [address] 43899- 1473 Sep, [facility] [id number] [place] [address] 95598- 2986 Sep, [facility] [id number] [place] [address] 17872- 1608 19 Sep, 2017 [facility] [address] [facility] [id number] [place] [address]- 0150 18 Sep, 2017 [facility] [address] [facility] [id number] [place] [address]- 7947 18 Sep, 2017 [facility] [id number] [place] [address]- 2193 15 Sep, 2017 [facility] [address] [facility] [id number] [place] [address]- 1312 15 Sep, 2017 Essential hypertension I10 [facility] [address] [facility] [id number] [place] [address]- 9283 15 Sep, 2017 [facility] [address] [facility] [id number] [place] [address]- 4721 15 Sep, 2017 [facility] [address] [place] [address]- 3529 15 Sep, 2017 [facility] [id number], [place] [address]- 2925 14 Sep, 2017 [facility] [address], [place] [address]- 4643 14 Sep, 2017 [facility] [address], [place] [address]- 8990 14 Sep, 2017 [facility] [address], [place] [address]- 4387 13 Sep, 2017 [facility] [place] [facility] [id number], [place] [address]- 6717 13 Sep, 2017 [facility] [place] [facility] [address] [facility] [id number] [address]- 4114 13 Sep, 2017 [facility] [id number], [place] [address]- 8833 12 Sep, 2017 [facility] [id number], [place] [address]- 6670 05 Sep, 2017 Mild intermittent asthma without complication J45.20 [facility] [address], [place] [address]- 0010 August, Essential hypertension I10 [facility] [id number] [place] [address] 63157- 7484 August, BMI 40.0-44.9, adult Z68.41 ; Dorsalgia, unspecified M54.9 ; Allergic state, initial encounter T78.40XA ; Mild intermittent asthma without complication J45.20 and 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 [facility] [id number] [place] [address] 00987- 8696 August, [facility] [id number] [place] [address] 26666- 2218 August, [facility] [id number] [place] [address] 92339- 6723 August, [facility] [id number] [place] [address] 27425- 1470 August, Reactive depression F32.9 [facility] [id number] [place] [address] 04899- 1920 August, [facility] [id number] [place] [address] 00431- 4822 August, [facility] [id number], [place] [address]- 7472 August, [facility] [id number] [place] [address] 80818- 8611 August, [facility] [address], [place] [address]- 0311 August, [facility] [id number] [place] [address] 57126- 2067 August, [facility] [id number], [place] [address]- 4004 August, [facility] [id number] [place] [address] 33863- 8277 August, Muscle spasms of both lower extremities M62.838 ; Essential hypertension I10 and Reactive depression F32.9 [facility] [id number] [place] [address] 05391- 2070 August, [facility] [address], [place] [address]- 9129 Jul, [facility] [id number] [place] [address] 57186- 5889 Jul, [facility] [id number] [place] [address] 48660- 7942 Jul, [facility] [id number] [place] [address] 79842- 8421 Jul, [facility] [id number] [place] [address] 28660- 9080 Jul, [facility] [id number] [place] [address] 28398- 6105 Jul, [facility] [id number] [place] [address] 48518- 8453 Jul, [facility] [id number] [place] [address] 41874- 9419 Jul, [facility] [address], [place] [address]- 5973 Jul, Essential hypertension I10 ; Other chronic pain G89.29 ; Dorsalgia, unspecified M54.9 ; Reactive depression F32.9 ; Mild intermittent asthma without complication J45.20 ; Allergic state, initial encounter T78.40XA and Muscle spasms of both lower extremities M62.838 IMMUNIZATIONS No Known Immunizations SOCIAL HISTORY Never Assessed REASON FOR VISIT Re:RE:Help with Meds from Depository PLAN OF CARE VITAL SIGNS MEDICATIONS Unknown [...] right foot surgery Surgical History Left knee 12/07/17 Hospitalization History childhood for pneumonia
--- OUTSIDE RECORDS SUMMARY | 2018-01-11 17:02 | XMS REPORT ---
Author Author ROSALINA GRAHAM Organization [facility] Address [address] [place] [address] Care Team Providers [facility] [place] [employer] Name Role Phone ROSALINA GRAHAM Unavailable PROBLEMS Type Condition ICD9-CM Code AZK54-RO Code Onset Dates Condition Status SNOMED Code Problem Muscle spasms of both lower extremities M62.838 Active 201849555 Problem Severe episode of recurrent major depressive disorder, without psychotic features F33.2 Active 91542007 Problem Reactive depression F32.9 Active 04980133 Problem Allergic state, initial encounter T78.40XA Active 657510807 Problem Essential hypertension I10 Active 02350102 Problem Dorsalgia, unspecified M54.9 Active 801023786 Problem Other chronic pain G89.29 Active 55073580 Problem Moderate persistent asthma without complication J45.40 Active 215996841 Problem Cervical disc disease with myelopathy M50.00 Active 75259425 Problem Falling R29.6 Active 471326871 Problem Generalized anxiety disorder F41.1 Active 82373371 Problem Panic disorder F41.0 Active 395156432 Problem PTSD (post-traumatic stress disorder) F43.10 Active 25410471 ALLERGIES No Information ENCOUNTERS Encounter Location Date Diagnosis [facility] [id number], [place] [address] Jan, [facility] [id number], [place] [address] Dec, [facility] [id number] [place] [address] 32803- 9634 Dec, [facility] [id number] [place] [address]27- 7945 Dec, BMI 40.0-44.9, adult Z68.41 ; Severe episode of recurrent major depressive disorder, without psychotic features F33.2 ; PTSD (post- traumatic stress disorder) F43.10 and Panic disorder F41.0 [facility] [id number], [place] [address] Dec, [facility] [id number] [place] [address] 53638- 1043 Dec, [facility] [id number] [place] [address] 37713- 8891 Dec, Essential hypertension I10 [facility] [id number] [place] [address] 07450- 5103 Dec, Severe episode of recurrent major depressive disorder, without psychotic features F33.2 [facility] [id number] [place] [address] 19273- 2447 Dec, Severe episode of recurrent major depressive disorder, without psychotic features F33.2 and Generalized anxiety disorder F41.1 [facility] [id number] [place] [address] 57062- 4658 Nov, Cervical disc disease with myelopathy M50.00 [facility] [id number] [place] [address] 90812- 8457 Nov, Cervical disc disease with myelopathy M50.00 ; Moderate persistent asthma without complication J45.40 and BMI 40.0-44.9, adult Z68.41 [facility] [id number] [place] [address] 33147- 7859 Nov, [facility] [id number] [place] [address] 91743- 0285 Nov, [facility] [id number] [place] [address] 53924- 8730 Nov, [facility] [id number] [place] [address] 19179- 5149 Nov, [facility] [id number] [place] [address] 28252- 1320 Nov, [facility] [id number] [address] Nov, [facility] [id number] [place] [address] 01091- 1279 Nov, [facility] [id number] [place] [address] 47697- 2801 Nov, [facility] [id number] [place] [address] 15092- 5280 Nov, [facility] [id number] [place] [address] 98887- 4114 Nov, Severe episode of recurrent major depressive disorder, without psychotic features F33.2 ; PTSD (post-traumatic stress disorder) F43.10 ; Panic disorder F41.0 and BMI 40.0-44.9, adult Z68.41 [facility] [id number] [place] [address] 59581- 9961 Nov, [facility] [id number] [place] [address] 85111- 5248 Nov, Essential hypertension I10 [facility] [id number] [place] [address] 82118- 2981 Nov, Severe episode of recurrent major depressive disorder, without psychotic features F33.2 [facility] [id number] [place] [address] 70894- 9415 Nov, Acute pain of left knee M25.562 [facility] [id number] [place] [address] 91634- 3239 Nov, Severe episode of recurrent major depressive disorder, without psychotic features F33.2 ; PTSD (post-traumatic stress disorder) F43.10 ; Panic disorder F41.0 and BMI 40.0-44.9, adult Z68.41 [facility] [id number] [place] [address] 86446- 7460 Oct, [facility] [id number] [place] [address] 41116- 7036 Oct, [facility] [address] [facility] [id number] [place] [address]97 Oct, [facility] [address] [facility] [id number] [place] [address], [place] [address]- 3269 Oct, [facility] [address] [facility] [id number] [place] [address]- 5824 Oct, Dorsalgia, unspecified M54.9 [facility] [id number] [place] [address], [place] [address]- 3769 Oct, Severe episode of recurrent major depressive disorder, without psychotic features F33.2 and Generalized anxiety disorder F41.1 [facility] [id number] [place] [address], [place] [address]- 1723 Oct, [facility] [id number] [place] [address] 1679 Oct, [facility] [id number] [place] [address], [place] [address]- 1303 Oct, [facility] [id number] [place] [address] Oct, [facility] [id number] [place] [address], [place] [address]- 6504 Oct, [facility] [address] [place] [address]- 6848 Oct, [facility] [id number] [place] [address] 1373 Oct, [facility] [address] [facility] [id number] [place] [address]- 5956 Oct, [facility], [facility] [id number] [place] [address]- 5044 Sep, Dorsalgia, unspecified M54.9 [facility] [id number] [place] [address]- 6701 Sep, [facility] [id number] [place] [address] 64365- 7536 Sep, [facility] [id number] [place] [address] 67099- 0322 Sep, Falling R29.6 ; Essential hypertension I10 ; Chronic obstructive pulmonary disease, unspecified COPD type J44.9 and BMI 40.0-44.9, adult Z68.41 [facility] [id number] [place] [address] 63353- 8758 Sep, [facility] [id number] [place] [address] 86180- 7394 Sep, [facility] [id number] [place] [address] 37903- 9823 Sep, [facility] [id number] [place] [address] 87320- 5314 Sep, Mild intermittent asthma without complication J45.20 [facility] [id number] [place] [address] 98847- 0181 Sep, [facility] [id number] [place] [address] 48831- 4297 Sep, [facility] [id number] [place] [address] 08108- 7362 Sep, [facility] [id number] [place] [address] 32169- 9678 Sep, [facility] [id number] [place] [address] 58694- 3928 Sep, [facility] [id number] [place] [address] 37047- 5643 Sep, [facility] [id number] [place] [address] 72419- 6399 Sep, Essential hypertension I10 [facility] [id number] [place] [address] 53399- 4279 Sep, [facility] [id number], [place] [address]- 5431 15 Sep, 2017 [facility] [address], [place] [address]- 0957 15 Sep, 2017 [facility] [address], [place] [address]- 7756 14 Sep, 2017 [facility] [address] [address]- 6501 14 Sep, 2017 [facility] [address], [place] [address]- 7653 14 Sep, 2017 [facility] [id number] [place] [address] 94832- 0893 13 Sep, 2017 [facility] [id number] [place] [address] 32872- 8878 13 Sep, 2017 [facility] [id number] [place] [address] 82695- 8162 Sep, [facility] [address] [address]- 5810 Sep, [facility] [id number] [place] [address] 58025- 7625 05 Sep, 2017 Mild intermittent asthma without complication J45.20 [facility] [address], [place] [address]- 4607 August, Essential hypertension I10 [facility] [address], [place] [address]- 9941 August, BMI 40.0-44.9, adult Z68.41 ; Dorsalgia, unspecified M54.9 ; Allergic state, initial encounter T78.40XA ; Mild intermittent asthma without complication J45.20 and 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 [facility] [address], [place] [address]- 9716 August, [facility] [id number] [place] [address] 12118- 1371 August, [facility] [address] [address]- 5710 August, [facility] [id number] [place] [address] 02212- 3721 August, Reactive depression F32.9 [facility] [id number] [place] [address] 77088- 7415 August, [facility] [id number] [place] [address] 84913- 8100 August, [facility] [id number] [place] [address] 98658- 8371 August, [facility] [id number] [place] [address] 75800- 9579 August, [facility] [id number] [place] [address] 04555- 4530 August, [facility] [id number] [place] [address] 59898- 9750 August, [facility] [id number] [place] [address] 73682- 6229 August, [facility] [id number], [place] [address]- 8415 August, Muscle spasms of both lower extremities M62.838 ; Essential hypertension I10 and Reactive depression F32.9 [facility] [address], [place] [address]- 2363 August, [facility] [address], [place] [address]- 9281 Jul, [facility] [id number] [place] [address] 04679- 9149 Jul, [facility] [address], [place] [address]- 1804 Jul, [facility] [id number] [place] [address] 80181- 8080 Jul, [facility] [address] [facility] [id number] [address]- 8824 Jul, [facility] [address] [facility] [id number] 4544 Jul, [facility] [address] [facility] [id number] [address]- 0324 Jul, [facility] [address] [facility] [id number] 8011 Jul, [facility] [address] [facility] [id number] [address]- 8567 Jul, Essential hypertension I10 ; Other chronic pain G89.29 ; Dorsalgia, unspecified M54.9 ; Reactive depression F32.9 ; Mild intermittent asthma without complication J45.20 ; Allergic state, initial encounter T78.40XA and Muscle spasms of both lower extremities M62.838 IMMUNIZATIONS No Known Immunizations SOCIAL HISTORY Never Assessed REASON FOR VISIT Flexril PLAN OF CARE VITAL SIGNS MEDICATIONS Medication Instructions Dosage Frequency Start Date End Date Duration Status Baclofen 10 mg Orally Three times a day 1 tablet with food or milk 8h Oct, 30 day(s) Active RESULTS No Results PROCEDURES No Known [...]
--- OUTSIDE RECORDS SUMMARY | 2018-01-11 17:02 | XMS REPORT ---
Author Author ROSALINA GRAHAM Organization [facility] Address [address] [place] [address] Care Team Providers Care Cloth Bleaching Supervisor Name Role Phone ROSALINA GRAHAM Unavailable PROBLEMS Type Condition ICD9-CM Code ATQ30-BK Code Onset Dates Condition Status SNOMED Code Problem Muscle spasms of both lower extremities M62.838 Active 046175479 Problem Severe episode of recurrent major depressive disorder, without psychotic features F33.2 Active 83607696 Problem Reactive depression F32.9 Active 76599786 Problem Allergic state, initial encounter T78.40XA Active 952919861 Problem Essential hypertension I10 Active 56675071 Problem Dorsalgia, unspecified M54.9 Active 291603640 Problem Other chronic pain G89.29 Active 45665430 Problem Moderate persistent asthma without complication J45.40 Active 704038050 Problem Cervical disc disease with myelopathy M50.00 Active 88478776 Problem Falling R29.6 Active 821619584 Problem Generalized anxiety disorder F41.1 Active 84850517 Problem Panic disorder F41.0 Active 204116261 Problem PTSD (post-traumatic stress disorder) F43.10 Active 50757700 ALLERGIES No Information ENCOUNTERS Encounter Location Date Diagnosis [facility] [id number] [address] Jan, [facility] [id number] [address] Dec, [facility] [id number] [place] [address] 13994- 9943 Dec, [facility] [id number] [place] [address] 98033- 4553 Dec, BMI 40.0-44.9, adult Z68.41 ; Severe episode of recurrent major depressive disorder, without psychotic features F33.2 ; PTSD (post- traumatic stress disorder) F43.10 and Panic disorder F41.0 [facility] [id number] [address] Dec, [facility] [id number] [place] [address] 28101- 2480 Dec, [facility] [id number] [place] [address] 49828- 1592 Dec, Essential hypertension I10 [facility] [id number] [place] [address] 01654- 0491 Dec, Severe episode of recurrent major depressive disorder, without psychotic features F33.2 [facility] [id number] [place] [address] 86092- 9386 Dec, Severe episode of recurrent major depressive disorder, without psychotic features F33.2 and Generalized anxiety disorder F41.1 [facility] [facility] [id number] [place] [address] 62283- 5306 Nov, Cervical disc disease with myelopathy M50.00 [facility] [id number] [place] [address] 89975- 0007 Nov, Cervical disc disease with myelopathy M50.00 ; Moderate persistent asthma without complication J45.40 and BMI 40.0-44.9, adult Z68.41 [facility] [id number] [place] [address] 13113- 6421 Nov, [facility] [id number] [place] [address] 22758- 7936 Nov, [facility] [id number] [place] [address] 45176- 9819 Nov, [facility] [id number] [place] [address] 85912- 5187 Nov, [facility] [id number] [place] [address] 31052- 8416 Nov, [facility] [id number] [address] Nov, [facility] [id number] [place] [address] 47367- 6303 Nov, [facility] [id number] [place] [address] 99868- 4818 Nov, [facility] [id number] [place] [address] 53250- 0990 Nov, [facility] [id number] [place] [address] 43326- 5546 Nov, Severe episode of recurrent major depressive disorder, without psychotic features F33.2 ; PTSD (post-traumatic stress disorder) F43.10 ; Panic disorder F41.0 and BMI 40.0-44.9, adult Z68.41 [facility] [id number] [place] [address] 81323- 6241 Nov, [facility] [id number] [place] [address] 32410- 2358 Nov, Essential hypertension I10 [facility] [id number] [place] [address] 01167- 8488 Nov, Severe episode of recurrent major depressive disorder, without psychotic features F33.2 [facility] [address] [place] [address] 42824- 6642 Nov, Acute pain of left knee M25.562 [facility] [id number] [place] [address] 68688- 3466 Nov, Severe episode of recurrent major depressive disorder, without psychotic features F33.2 ; PTSD (post-traumatic stress disorder) F43.10 ; Panic disorder F41.0 and BMI 40.0-44.9, adult Z68.41 [facility] [id number] [place] [address] 84123- 8869 Oct, [facility] [id number] [place] [address] 88238- 4326 Oct, [facility] [address] [facility] [id number] [place] [address]- 0930 Oct, [facility] [address] [facility] [id number] [place] [address], [place] [address]- 1410 Oct, [facility] [address] [facility] [id number] [place] [address]- 7177 Oct, Dorsalgia, unspecified M54.9 [facility] [id number] [place] [address], [place] [address]- 6874 Oct, Severe episode of recurrent major depressive disorder, without psychotic features F33.2 and Generalized anxiety disorder F41.1 [facility] [id number] [place] [address], [place] [address]- 2735 Oct, [facility] [id number] [place] [address]- 6243 Oct, [facility] [id number] [place] [address], [place] [address]- 8155 Oct, [facility] [id number] [place] [address]- 5814 Oct, [facility] [id number] [place] [address], [place] [address]- 5112 Oct, [facility] [id number] [place] [address]- 8253 Oct, [facility] [id number] [place] [address]- 2312 Oct, [facility] [address] [facility] [id number] [place] [address]- 4633 Oct, [facility] [id number] [place] [address]- 3960 Sep, Dorsalgia, unspecified M54.9 [facility] [id number] [place] [address]- 3691 Sep, [facility] [id number] [place] [address] 07511- 0253 Sep, [facility] [id number] [place] [address] 56131- 3499 Sep, Falling R29.6 ; Essential hypertension I10 ; Chronic obstructive pulmonary disease, unspecified COPD type J44.9 and BMI 40.0-44.9, adult Z68.41 [facility] [id number] [place] [address] 79871- 5496 Sep, [facility] [id number] [place] [address] 14379- 1418 Sep, [facility] [id number] [place] [address] 27587- 1407 Sep, [facility] [id number] [place] [address] 02900- 5613 Sep, Mild intermittent asthma without complication J45.20 [facility] [id number] [place] [address] 69634- 0163 Sep, [facility] [id number] [place] [address] 49096- 1991 Sep, [facility] [id number] [place] [address] 72739- 8537 Sep, [facility] [id number] [place] [address] 48350- 3400 Sep, [facility] [id number] [place] [address] 53006- 7295 Sep, [facility] [id number] [place] [address] 69694- 9031 Sep, [facility] [id number] [place] [address] 97846- 6903 Sep, Essential hypertension I10 [facility] [id number] [place] [address] 03973- 5047 Sep, [facility] [id number] [address]- 8308 15 Sep, 2017 [facility] [address] [address]- 9780 15 Sep, 2017 [facility] [address] [address]- 3327 14 Sep, 2017 [facility] [address] [address]- 9967 14 Sep, 2017 [facility] [address] [address]- 6015 14 Sep, 2017 [facility] [id number] [place] [address] 40201- 2810 13 Sep, 2017 [facility] [address] [place] [address] 27686- 2158 13 Sep, 2017 [facility] [id number] [place] [address] 18003- 6894 Sep, [facility] [address] [address]- 9316 Sep, [facility] [id number] [place] [address] 10481- 4671 05 Sep, 2017 Mild intermittent asthma without complication J45.20 [facility] [address] [address]- 2130 August, Essential hypertension I10 [facility] [address] [address]- 3311 August, BMI 40.0-44.9, adult Z68.41 ; Dorsalgia, unspecified M54.9 ; Allergic state, initial encounter T78.40XA ; Mild intermittent asthma without complication J45.20 and 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 [facility] [address] [address]- 7465 August, [facility] [id number] [place] [address] 32694- 4903 August, [facility] [address] [address]- 1144 August, [facility] [id number] [place] [address] 21199- 7261 August, Reactive depression F32.9 [facility] [id number] [place] [address] 30422- 0657 August, [facility] [id number] [place] [address] 94882- 7260 August, [facility] [address] [place] [address] 48444- 3626 August, [facility] [id number] [place] [address] 07565- 4420 August, [facility] [id number] [place] [address] 05589- 5056 August, [facility] [id number] [place] [address] 39882- 1383 August, [facility] [address] [place] [address] 11402- 1497 August, [facility] [id number] [address]- 4411 August, Muscle spasms of both lower extremities M62.838 ; Essential hypertension I10 and Reactive depression F32.9 [facility] [address] [address]- 6939 August, [facility] [address] [address]- 6823 Jul, [facility] [id number] [place] [address] 53219- 2908 Jul, [facility] [address] [address]- 6868 Jul, [facility] [id number] [place] [address] 50516- 7850 Jul, [facility] [address] [facility] [id number] [address]- 3375 Jul, [facility] [address] [facility] [id number] 4285 Jul, [facility] [address] [facility] [id number] [address]- 2922 Jul, [facility] [address] [facility] [id number] 3015 Jul, [facility] [address] [facility] [id number] [address]- 6064 Jul, Essential hypertension I10 ; Other chronic pain G89.29 ; Dorsalgia, unspecified M54.9 ; Reactive depression F32.9 ; Mild intermittent asthma without complication J45.20 ; Allergic state, initial encounter T78.40XA and Muscle spasms of both lower extremities M62.838 IMMUNIZATIONS No Known Immunizations SOCIAL HISTORY Never Assessed [facility] VITAL SIGNS MEDICATIONS Unknown [...]
--- OUTSIDE RECORDS SUMMARY | 2018-01-11 17:02 | XMS REPORT ---
Author Author ROSALINA GRAHAM Organization [facility] Address [address] [place] [address] Care Team Providers Care Input Output Clerk Name Role Phone ROSALINA GRAHAM Unavailable PROBLEMS Type Condition ICD9-CM Code KMU46-BN Code Onset Dates Condition Status SNOMED Code Problem Muscle spasms of both lower extremities M62.838 Active 788610296 Problem Severe episode of recurrent major depressive disorder, without psychotic features F33.2 Active 82250900 Problem Reactive depression F32.9 Active 88801372 Problem Allergic state, initial encounter T78.40XA Active 740098743 Problem Essential hypertension I10 Active 52561617 Problem Dorsalgia, unspecified M54.9 Active 279307747 Problem Other chronic pain G89.29 Active 20586398 Problem Moderate persistent asthma without complication J45.40 Active 303369775 Problem Cervical disc disease with myelopathy M50.00 Active 28480289 Problem Falling R29.6 Active 848609195 Problem Generalized anxiety disorder F41.1 Active 82211790 Problem Panic disorder F41.0 Active 634944183 Problem PTSD (post-traumatic stress disorder) F43.10 Active 62835623 ALLERGIES No Information ENCOUNTERS Encounter Location Date Diagnosis [facility] [id number] [address] Jan, [facility] [id number] [address] Dec, [facility] [id number] [place] [address] 19826- 2535 Dec, [facility] [id number] [place] [address] 13907- 4599 Dec, BMI 40.0-44.9, adult Z68.41 ; Severe episode of recurrent major depressive disorder, without psychotic features F33.2 ; PTSD (post- traumatic stress disorder) F43.10 and Panic disorder F41.0 [facility] [id number] [address] Dec, [facility] [id number] [place] [address] 42269- 2098 Dec, [facility] [id number] [place] [address] 20287- 2690 Dec, Essential hypertension I10 [facility] [id number] [place] [address] 27918- 4900 Dec, Severe episode of recurrent major depressive disorder, without psychotic features F33.2 [facility] [id number] [place] [address] 92303- 0342 Dec, Severe episode of recurrent major depressive disorder, without psychotic features F33.2 and Generalized anxiety disorder F41.1 [id number] [place] [address] 24258- 6909 Nov, Cervical disc disease with myelopathy M50.00 [facility] [id number] [place] [address] 33046- 8929 Nov, Cervical disc disease with myelopathy M50.00 ; Moderate persistent asthma without complication J45.40 and BMI 40.0-44.9, adult Z68.41 [facility] [id number] [place] [address] 94969- 6297 Nov, [facility] [id number] [place] [address] 34716- 9317 Nov, [facility] [id number] [place] [address] 17328- 4717 Nov, [facility] [id number] [place] [address] 97139- 9390 Nov, [facility] [id number] [place] [address] 02733- 3339 Nov, [facility] [id number] [address] 9649 Nov, [facility] [id number] [place] [address] 81559- 4591 Nov, [facility] [id number] [place] [address] 64456- 3499 Nov, [facility] [id number] [place] [address] 28168- 3841 Nov, [facility] [id number] [place] [address] 93692- 2479 Nov, Severe episode of recurrent major depressive disorder, without psychotic features F33.2 ; PTSD (post-traumatic stress disorder) F43.10 ; Panic disorder F41.0 and BMI 40.0-44.9, adult Z68.41 [facility] [id number] [place] [address] 40830- 8327 Nov, [facility] [id number] [place] [address] 76101- 9339 Nov, Essential hypertension I10 [facility] [id number] [place] [address] 29049- 7850 Nov, Severe episode of recurrent major depressive disorder, without psychotic features F33.2 [facility] [id number] [place] [address] 37237- 3710 Nov, Acute pain of left knee M25.562 [facility] [id number] [place] [address] 19502- 4207 Nov, Severe episode of recurrent major depressive disorder, without psychotic features F33.2 ; PTSD (post-traumatic stress disorder) F43.10 ; Panic disorder F41.0 and BMI 40.0-44.9, adult Z68.41 [facility] [id number] [place] [address] 01060- 3655 Oct, [facility] [id number] [place] [address] 20965- 6357 Oct, [facility] [address] [facility] [id number] [place] [address] 3190 Oct, [facility] [address] [facility] [id number] [place] [address], [place] [address]- 0631 Oct, [facility] [address] [facility] [id number] [place] [address]- 5394 Oct, Dorsalgia, unspecified M54.9 [facility] [id number] [place] [address], [place] [address]- 3082 Oct, Severe episode of recurrent major depressive disorder, without psychotic features F33.2 and Generalized anxiety disorder F41.1 [facility] [id number] [place] [address], [place] [address]- 8218 Oct, [facility] [id number] [place] [address]- 7228 Oct, [facility] [id number] [place] [address], [place] [address]- 5928 Oct, [facility] [id number] [place] [address]- 7435 Oct, [facility] [id number] [place] [address], [place] [address]- 4784 Oct, [facility] [id number] [place] [address]- 4098 Oct, [facility] [id number] [place] [address]- 9732 Oct, [facility] [address] [facility] [id number] [place] [address]- 5937 Oct, [facility] [id number] [place] [address]- 6110 Sep, Dorsalgia, unspecified M54.9 [facility] [id number] [place] [address]- 4315 Sep, [facility] [id number] [place] [address] 99746- 6415 Sep, [facility] [id number] [place] [address] 93155- 7325 Sep, Falling R29.6 ; Essential hypertension I10 ; Chronic obstructive pulmonary disease, unspecified COPD type J44.9 and BMI 40.0-44.9, adult Z68.41 [facility] [id number] [place] [address] 12176- 7454 Sep, [facility] [id number] [place] [address] 29393- 5160 Sep, [facility] [id number] [place] [address] 98599- 1636 Sep, [facility] [id number] [place] [address] 63348- 0026 Sep, Mild intermittent asthma without complication J45.20 [facility] [id number] [place] [address] 18460- 9073 Sep, [facility] [id number] [place] [address] 64380- 2937 Sep, [facility] [id number] [place] [address] 89497- 8126 Sep, [facility] [id number] [place] [address] 40021- 0526 Sep, [facility] [id number] [place] [address] 37977- 8963 Sep, [facility] [id number] [place] [address] 50924- 0773 Sep, [facility] [id number] [place] [address] 52081- 0363 Sep, Essential hypertension I10 [facility] [id number] [place] [address] 93292- 2607 Sep, [facility] [id number] [address]- 3907 15 Sep, 2017 [facility] [id number], [place] [address]- 8679 15 Sep, 2017 [facility] [id number] [address]- 1728 14 Sep, 2017 [facility] [id number] [address]- 8009 14 Sep, 2017 [facility] [id number] [address]- 6902 14 Sep, 2017 [facility] [id number] [place] [address] 79629- 0800 13 Sep, 2017 [facility] [id number] [place] [address] 45644- 6307 13 Sep, 2017 [facility] [id number] [place] [address] 34894- 3067 Sep, [facility] [id number], [place] [address]- 7529 Sep, [facility] [id number] [place] [address] 90564- 5038 05 Sep, 2017 Mild intermittent asthma without complication J45.20 [facility] [id number] [address]- 7637 August, Essential hypertension I10 [facility] [id number] [address]- 3806 August, BMI 40.0-44.9, adult Z68.41 ; Dorsalgia, unspecified M54.9 ; Allergic state, initial encounter T78.40XA ; Mild intermittent asthma without complication J45.20 and 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 [facility] [id number] [address]- 3455 August, [facility] [id number] [place] [address] 09421- 4698 August, [facility] [id number], [place] [address]- 1445 August, [facility] [id number] [place] [address] 01071- 8700 August, Reactive depression F32.9 [facility] [id number] [place] [address] 28513- 3566 August, [facility] [id number] [place] [address] 86210- 1392 August, [facility] [id number] [place] [address] 82016- 3738 August, [facility] [id number] [place] [address] 05913- 1746 August, [facility] [id number] [place] [address] 23793- 6257 August, [facility] [id number] [place] [address] 85273- 6198 August, [facility] [id number] [place] [address] 98566- 5003 August, [facility] [id number] [address]- 0040 August, Muscle spasms of both lower extremities M62.838 ; Essential hypertension I10 and Reactive depression F32.9 [facility] [id number] [address]- 7876 August, [facility] [id number] [address]- 2084 Jul, [facility] [id number] [place] [address] 51857- 7380 Jul, [facility] [id number] [address]- 4952 Jul, [facility] [id number] [place] [address] 17943- 0915 Jul, [facility] [address] [facility] [id number] [address]- 5430 Jul, [facility] [address] [facility] [id number] [address]- 2275 Jul, [facility] [address] [facility] [id number], [place] [address]- 5342 Jul, [facility] [address] [facility] [id number] 8918 Jul, [facility] [address] [facility] [id number], [place] [address]- 7573 Jul, Essential hypertension I10 ; Other chronic pain G89.29 ; Dorsalgia, unspecified M54.9 ; Reactive depression F32.9 ; Mild intermittent asthma without complication J45.20 ; Allergic state, initial encounter T78.40XA and Muscle spasms of both lower extremities M62.838 IMMUNIZATIONS No Known Immunizations SOCIAL HISTORY Never Assessed REASON FOR VISIT Re:RE:Flexril PLAN OF CARE VITAL SIGNS MEDICATIONS Unknown [...]
--- OUTSIDE RECORDS SUMMARY | 2018-01-11 17:02 | XMS REPORT ---
Author Author RITIKA OLIVER [facility] Address [address] [place] [address] Care Team Providers Care Environmental Health Safety Manager Name Role Phone RITIKA OLIVER Unavailable PROBLEMS Type Condition ICD9-CM Code NER21-GU Code Onset Dates Condition Status SNOMED Code Problem Muscle spasms of both lower extremities M62.838 Active 817030188 Problem Severe episode of recurrent major depressive disorder, without psychotic features F33.2 Active 64145125 Problem Reactive depression F32.9 Active 34650871 Problem Allergic state, initial encounter T78.40XA Active 164881010 Problem Essential hypertension I10 Active 96544503 Problem Dorsalgia, unspecified M54.9 Active 354877255 Problem Other chronic pain G89.29 Active 53304392 Problem Moderate persistent asthma without complication J45.40 Active 678946944 Problem Cervical disc disease with myelopathy M50.00 Active 14475361 Problem Falling R29.6 Active 534593049 Problem Generalized anxiety disorder F41.1 Active 41182168 Problem Panic disorder F41.0 Active 147434230 Problem PTSD (post-traumatic stress disorder) F43.10 Active 53470429 ALLERGIES No Information ENCOUNTERS Encounter Location Date Diagnosis [facility] [id number], [place] [address] Jan, [facility] [id number], [place] [address] Dec, [facility] [id number] [place] [address] 89599- 9635 Dec, [facility] [id number] [place] [address] 70486- 4169 Dec, BMI 40.0-44.9, adult Z68.41 ; Severe episode of recurrent major depressive disorder, without psychotic features F33.2 ; PTSD (post- traumatic stress disorder) F43.10 and Panic disorder F41.0 [facility] [id number] [place] [address] 80762- 1988 Dec, [facility] [id number] [place] [address] 65964- 3521 Dec, [facility] [id number] [place] [address] 97010- 3000 Dec, Essential hypertension I10 [facility] [id number] [place] [address] 06954- 4229 Dec, Severe episode of recurrent major depressive disorder, without psychotic features F33.2 [facility] [id number] [place] [address] 21710- 8879 Dec, Severe episode of recurrent major depressive disorder, without psychotic features F33.2 and Generalized anxiety disorder F41.1 [facility] [id number] [place] [address] 38389- 7619 Nov, Cervical disc disease with myelopathy M50.00 [facility] [id number] [place] [address] 80718- 6310 Nov, Cervical disc disease with myelopathy M50.00 ; Moderate persistent asthma without complication J45.40 and BMI 40.0-44.9, adult Z68.41 [facility] [id number] [place] [address] 81301- 7782 Nov, [facility] [id number] [place] [address] 18570- 8225 Nov, [facility] [id number] [place] [address] 94210- 2232 Nov, [facility] [address] [address]- [address] Nov, [facility] [id number] [place] [address] 33066- 1643 Nov, [facility] [address] [place] [address] Nov, [facility] [id number] [place] [address] 12138- 2888 Nov, [facility] [address], [place] [address] Nov, [facility] [id number] [place] [address] 09126- 2630 Nov, [facility] [id number] [place] [address] 97280- 5132 Nov, Severe episode of recurrent major depressive disorder, without psychotic features F33.2 ; PTSD (post-traumatic stress disorder) F43.10 ; Panic disorder F41.0 and BMI 40.0-44.9, adult Z68.41 [facility] [id number] [place] [address] 17936- 4214 Nov, [facility] [id number] [place] [address] 61927- 8079 Nov, Essential hypertension I10 [facility] [id number] [place] [address] 16771- 7377 Nov, Severe episode of recurrent major depressive disorder, without psychotic features F33.2 [facility] [address] [place] [address] 27314- 4608 Nov, Acute pain of left knee M25.562 [facility] [id number] [place] [address] 30016- 0881 Nov, Severe episode of recurrent major depressive disorder, without psychotic features F33.2 ; PTSD (post-traumatic stress disorder) F43.10 ; Panic disorder F41.0 and BMI 40.0-44.9, adult Z68.41 [facility] [address], [place] [address] Oct, [facility] [address] [place] [address] 32215- 8341 Oct, [facility] [address] [facility] [id number] [place] [address] Oct, [facility] [address] [facility] [id number] [place] [address], [place] [address]- 9107 Oct, [facility] [id number] [place] [address] Oct, Dorsalgia, unspecified M54.9 [facility] [id number] [place] [address], [place] [address]- 9713 Oct, Severe episode of recurrent major depressive disorder, without psychotic features F33.2 and Generalized anxiety disorder F41.1 [facility] [id number] [place] [address], [place] [address]- 7[address] Oct, [facility] [id number] [place] [address], [place] [address]- 6182 Oct, [facility] [address] [place] [address] 14892- 4764 Oct, [facility] [address] [place] [address]- 4367 Oct, [facility] [address] [place] [address], [place] [address]- 7908 Oct, [facility] [address] [place] [address]- 7[address] Oct, [facility] [id number], [place] [address] Oct, [facility] [id number] [place] [address]- 5305 Oct, [facility] [id number] [place] [address]- 9529 Sep, Dorsalgia, unspecified M54.9 [facility] [id number] [place] [address]- 5936 Sep, [facility] [id number] [address]- 9[address] Sep, [facility] [id number] [place] [address] 66071- 3318 Sep, Falling R29.6 ; Essential hypertension I10 ; Chronic obstructive pulmonary disease, unspecified COPD type J44.9 and BMI 40.0-44.9, adult Z68.41 [facility] [id number] [place] [address] 01531- 0116 Sep, [facility] [id number] [place] [address] 01797- 7674 Sep, [facility] [id number] [place] [address] 79035- 3146 Sep, [facility] [id number] [place] [address] 74888- 0154 Sep, Mild intermittent asthma without complication J45.20 [facility] [id number] [place] [address] 28227- 3351 Sep, [facility] [id number] [place] [address] 33931- 4324 Sep, [facility] [id number] [place] [address] 44424- 2041 Sep, [facility] [address], [place] [address]- 5716 Sep, [facility] [id number] [place] [address] 15861- 1386 Sep, [facility] [address] [place] [address] 42837- 6074 Sep, [facility] [id number] [place] [address] 81980- 7268 Sep, Essential hypertension I10 [facility] [address], [place] [address]- 8649 Sep, [facility] [address], [place] [address]- 42[address] 15 Sep, 2017 [facility] [address], [place] [address]- 6382 15 Sep, 2017 [facility] [address], [place] [address]- 3059 14 Sep, 2017 [facility] [address] [place] [address] 68642- 3678 14 Sep, 2017 [facility] [address] [place] [address] 12160- 0048 14 Sep, 2017 [facility] [id number] [place] [address] 81086- 5112 Sep, [facility] [id number] [place] [address] 86500- 5608 Sep, [facility] [id number] [place] [address] 05368- 6240 Sep, [facility] [address], [place] [address]- 8238 Sep, [facility] [id number] [place] [address] 16900- 2942 Sep, Mild intermittent asthma without complication J45.20 [facility] [address], [place] [address]- 8104 August, Essential hypertension I10 [facility] [address], [place] [address]- 0358 August, BMI 40.0-44.9, adult Z68.41 ; Dorsalgia, unspecified M54.9 ; Allergic state, initial encounter T78.40XA ; Mild intermittent asthma without complication J45.20 and 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 [facility] [address], [place] [address]- 6300 August, [facility] [address] [place] [address] 37044- 6251 August, [facility] [address], [place] [address]- 4858 August, [facility] [id number] [place] [address] 36741- 8066 August, Reactive depression F32.9 [facility] [address], [place] [address]- 3255 August, [facility] [id number] [place] [address] 06881- 4146 August, [facility] [address], [place] [address]- 0285 August, [facility] [address] [place] [address] 94021- 3376 August, [facility] [id number] [place] [address] 25239- 3300 August, [facility] [address] [place] [address] 90737- 6740 August, [facility] [address] [place] [address] 42422- 7512 August, [facility] [address], [place] [address]- 3250 August, Muscle spasms of both lower extremities M62.838 ; Essential hypertension I10 and Reactive depression F32.9 [facility] [address], [place] [address]- 0294 August, [facility] [address], [place] [address]- 9332 Jul, [facility] [address], [place] [address]- 5539 Jul, [facility] [address], [place] [address]- 1857 Jul, [facility] [address], [place] [address]- 8316 Jul, [facility] [address] [facility] [id number] [address]- 6717 Jul, [facility] [id number], [place] [address]- 0771 Jul, [facility] [id number], [place] [address]- 2277 Jul, [facility] [id number], [place] [address]- 0135 Jul, [facility] [address] [facility] [id number] [address]- 8381 Jul, Essential hypertension I10 ; Other chronic pain G89.29 ; Dorsalgia, unspecified M54.9 ; Reactive depression F32.9 ; Mild intermittent asthma without complication J45.20 ; Allergic state, initial encounter T78.40XA and Muscle spasms of both lower extremities M62.838 IMMUNIZATIONS No Known Immunizations SOCIAL HISTORY Never Assessed REASON FOR VISIT intake PLAN OF CARE Activity Details Follow Up Next Available Reason: F/U VITAL SIGNS MEDICATIONS Medication Instructions Dosage Frequency Start Date End Date Duration Status Zoloft 100 mg Orally Once a day 1 tablet 24h Active Atenolol 50 MG Orally Once a day 1 tablet 24h Active Losartan Potassium 100 mg Orally Once a day 1 tablet 24h Active Singulair 10 mg Orally Once a day 1 tablet 24h Active Allergy 12 MG Orally every 12 hrs 1 tablet as needed 12h Active Gabapentin 300 MG Orally twice a day 1 capsule 12h Active Lovastatin 40 MG Orally Once a day 1 tablet with the evening meal 24h Jul, Active Breo Ellipta 100-25 MCG/INH Inhalation Once a day 1 puff 24h Sep, Active ProAir HFA 108 (90 Base) MCG/ACT Inhalation every 6 hrs 2 puffs as needed 6h Sep, Active Xanax XR 1 MG Orally Once a day 1 tablet in the morning 24h 28 days Active Cyclobenzaprine HCl 10 mg Orally Three times a day 1 tablet as needed 8h Active RESULTS No Results PROCEDURES Procedure Date Ordered Result Body Site Psych diagnostic evaluation, established patient November 02, 2017 INSTRUCTIONS MEDICATIONS ADMINISTERED No Known Medications MEDICAL [...]
--- OUTSIDE RECORDS SUMMARY | 2018-01-11 17:03 | XMS REPORT ---
Author Author ROSALINA GRAHAM Organization [facility] Address [address] [place] [address] Care Team Providers Care [employer] Officer Name Role Phone ROSALINA GRAHAM Unavailable PROBLEMS Type Condition ICD9-CM Code [id number] Code Onset Dates Condition Status SNOMED Code Problem Muscle spasms of both lower extremities M62.838 Active 134393075 Problem Severe episode of recurrent major depressive disorder, without psychotic features F33.2 Active 09431745 Problem Reactive depression F32.9 Active 50901939 Problem Allergic state, initial encounter T78.40XA Active 266833920 Problem Essential hypertension I10 Active 49521736 Problem Dorsalgia, unspecified M54.9 Active 425485155 Problem Other chronic pain G89.29 Active 20651649 Problem Moderate persistent asthma without complication J45.40 Active 441765978 Problem Cervical disc disease with myelopathy M50.00 Active 60744753 Problem Falling R29.6 Active 097758097 Problem Generalized anxiety disorder F41.1 Active 89151712 Problem Panic disorder F41.0 Active 073239951 Problem PTSD (post-traumatic stress disorder) F43.10 Active [id number] ALLERGIES No Information ENCOUNTERS Encounter Location Date Diagnosis [facility] [id number] [place] [address] 13670- 9590 05 Dec, 2017 [facility] [id number] [place] [address] 82247- 3627 Dec, [facility] [address] [place] [address] 82338- 4657 Nov, Cervical disc disease with myelopathy M50.00 [facility] [id number] [address] 8[address] Nov, Cervical disc disease with myelopathy M50.00 ; Moderate persistent asthma without complication J45.40 and BMI 40.0-44.9, adult Z68.41 [facility] [address] [place] [address] 295[address] Nov, [facility] [address] [place] [address] 34104- 9069 Nov, [facility] [address] [place] [address] 74[address] Nov, [facility] [id number] [place] [address] 32551- 9427 Nov, [facility] [address] [place] [address]- 9323 Nov, [facility] [id number] [place] [address] 70743- 7331 Nov, [facility] [id number] [place] [address] 71968- 4497 Nov, [facility] [address] [place] [address] 76083- 8669 Nov, [facility] [address] [place] [address] 36366- 7362 Nov, [facility] [address] [address] 1674 Nov, Severe episode of recurrent major depressive disorder, without psychotic features F33.2 ; PTSD (post-traumatic stress disorder) F43.10 ; Panic disorder F41.0 and BMI 40.0-44.9, adult Z68.41 [facility] [address] [address] 2635 Nov, [facility] [address] [address] 1343 Nov, Essential hypertension I10 [facility] [address] [address] 2126 Nov, Severe episode of recurrent major depressive disorder, without psychotic features F33.2 [facility] [id number] [address] 3605 Nov, Acute pain of left knee M25.562 [facility] [id number] [place] [address] 75909- 8739 Nov, Severe episode of recurrent major depressive disorder, without psychotic features F33.2 ; PTSD (post-traumatic stress disorder) F43.10 ; Panic disorder F41.0 and BMI 40.0-44.9, adult Z68.41 [facility] [id number] [place] [address] 34967- 0765 Oct, [facility] [id number] [place] [address] 73683- 8638 Oct, [facility] [id number] [place] [address] 22357- 3454 Oct, [facility] [id number] [place] [address] 97352- 2641 Oct, [facility] [id number] [place] [address] 65652- 6759 Oct, Dorsalgia, unspecified M54.9 [facility] [id number] [place] [address] 74971- 6795 Oct, Severe episode of recurrent major depressive disorder, without psychotic features F33.2 and Generalized anxiety disorder F41.1 [facility] [id number] [place] [address] 48832- 5705 Oct, [facility] [address] [address]- 7735 Oct, [facility] [id number] [place] [address] 51517- 5235 Oct, [facility] [id number] [address]- 0186 Oct, [facility] [id number] [place] [address] 57247- 5279 Oct, [facility] [address] [address]- 1995 Oct, [facility] [id number] [place] [address] 06099- 4679 Oct, [facility] [id number] [place] [address] 61096- 0920 Oct, [facility] [id number] [place] [address] 03228- 0893 Sep, Dorsalgia, unspecified M54.9 [facility] [id number] [place] [address] 45082- 8010 Sep, [facility] [id number] [place] [address] 19185- 1881 Sep, [facility] [id number] [place] [address] 15571- 1169 Sep, Falling R29.6 ; Essential hypertension I10 ; Chronic obstructive pulmonary disease, unspecified COPD type J44.9 and BMI 40.0-44.9, adult Z68.41 [facility] [id number] [place] [address] 53190- 1394 Sep, [facility] [id number] [place] [address] 41664- 9062 Sep, [facility] [id number] [place] [address] 14629- 3872 Sep, [facility] [id number] [place] [address] 80607- 3091 Sep, Mild intermittent asthma without complication J45.20 [facility] [id number] [place] [address] 68501- 1363 Sep, [facility] [id number] [place] [address] 27765- 2623 Sep, [facility] [id number] [place] [address] 16704- 7190 19 Sep, 2017 [facility] [address] [facility] [id number] [place] [address]- 7461 18 Sep, 2017 [facility] [address] [facility] [id number] [place] [address]- 0930 18 Sep, 2017 [facility] [id number] [place] [address]- 4284 15 Sep, 2017 [facility] [address] [facility] [id number] [place] [address]- 4582 15 Sep, 2017 Essential hypertension I10 [facility] [address] [facility] [id number] [place] [address]- 9895 15 Sep, 2017 [facility] [address] [facility] [id number] [place] [address]- 1184 15 Sep, 2017 [facility] [address] [place] [address]- 0819 15 Sep, 2017 [facility] [id number] [address]- 8963 14 Sep, 2017 [facility] [address], [place] [address]- 3536 14 Sep, 2017 [facility] [address], [place] [address]- 6211 14 Sep, 2017 [facility] [address], [place] [address]- 2509 13 Sep, 2017 [facility] [place] [facility] [id number] [address]- 7031 13 Sep, 2017 [facility] [place] [facility] [address] [facility] [id number] [address]- 6997 13 Sep, 2017 [facility] [id number] [address]- 2404 12 Sep, 2017 [facility] [id number] [address]- 9836 05 Sep, 2017 Mild intermittent asthma without complication J45.20 [facility] [address], [place] [address]- 0557 August, Essential hypertension I10 [facility] [id number] [place] [address] 08663- 1135 August, BMI 40.0-44.9, adult Z68.41 ; Dorsalgia, unspecified M54.9 ; Allergic state, initial encounter T78.40XA ; Mild intermittent asthma without complication J45.20 and 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 [facility] [id number] [place] [address] 37248- 5156 August, [facility] [id number] [place] [address] 27509- 4120 August, [facility] [id number] [place] [address] 92586- 5998 August, [facility] [id number] [place] [address] 47542- 8482 August, Reactive depression F32.9 [facility] [id number] [place] [address] 76500- 7997 August, [facility] [id number] [place] [address] 38672- 9836 August, [facility] [id number] [address]- 8426 August, [facility] [address] [place] [address] 46285- 8534 August, [facility] [address], [place] [address]- 4062 August, [facility] [id number] [place] [address] 31558- 3774 August, [facility] [id number], [place] [address]- 7924 August, [facility] [id number] [place] [address] 35399- 0162 August, Muscle spasms of both lower extremities M62.838 ; Essential hypertension I10 and Reactive depression F32.9 [facility] [id number] [address]- 1767 August, [facility] [address], [place] [address]- 8759 Jul, [facility] [id number] [place] [address] 21182- 5382 Jul, [facility] [address] [place] [address] 50651- 9711 Jul, [facility] [id number] [place] [address] 48962- 3139 Jul, [facility] [id number] [place] [address] 73083- 8674 Jul, [facility] [id number] [place] [address] 60606- 4191 Jul, [facility] [address] [place] [address] 46225- 8095 Jul, [facility] [address] [place] [address] 61149- 7905 Jul, [facility] [address], [place] [address]- 7307 Jul, Essential hypertension I10 ; Other chronic pain G89.29 ; Dorsalgia, unspecified M54.9 ; Reactive depression F32.9 ; Mild intermittent asthma without complication J45.20 ; Allergic state, initial encounter T78.40XA and Muscle spasms of both lower extremities M62.838 IMMUNIZATIONS No Known Immunizations SOCIAL HISTORY Never Assessed REASON FOR VISIT New Refill Request PLAN OF CARE VITAL SIGNS MEDICATIONS Unknown [...]
--- OUTSIDE RECORDS SUMMARY | 2018-01-11 17:03 | XMS REPORT ---
Author Author ROSALINA GRAHAM Organization [facility] Address [address] [place] [address] Care Team Providers Care Pattern Repair Person Name Role Phone ROSALINA GRAHAM Unavailable PROBLEMS Type Condition ICD9-CM Code DGA60-NV Code Onset Dates Condition Status SNOMED Code Problem Muscle spasms of both lower extremities M62.838 Active 388588598 Problem Severe episode of recurrent major depressive disorder, without psychotic features F33.2 Active 34693512 Problem Reactive depression F32.9 Active 83404598 Problem Allergic state, initial encounter T78.40XA Active 631844861 Problem Essential hypertension I10 Active 73434846 Problem Dorsalgia, unspecified M54.9 Active 727119496 Problem Other chronic pain G89.29 Active 19631513 Problem Moderate persistent asthma without complication J45.40 Active 716499473 Problem Cervical disc disease with myelopathy M50.00 Active 47309703 Problem Falling R29.6 Active 320866716 Problem Generalized anxiety disorder F41.1 Active 36597225 Problem Panic disorder F41.0 Active 790346620 Problem PTSD (post-traumatic stress disorder) F43.10 Active 33898541 ALLERGIES No Information ENCOUNTERS Encounter Location Date Diagnosis [facility] [id number] [place] [address] 47052- 7961 05 Dec, 2017 [facility] [id number] [place] [address] 88483- 9280 Dec, [facility] [id number] [place] [address] 65491- 6546 Nov, Cervical disc disease with myelopathy M50.00 [facility] [id number] [address] Nov, Cervical disc disease with myelopathy M50.00 ; Moderate persistent asthma without complication J45.40 and BMI 40.0-44.9, adult Z68.41 [facility] [id number] [place] [address] Nov, [facility] [id number] [place] [address] 45855- 5592 Nov, [facility] [id number] [place] [address] 3096 Nov, [facility] [id number] [place] [address] 22181- 9307 Nov, [facility] [id number] [place] [address] 3817 Nov, [facility] [id number] [place] [address] 58124- 2558 Nov, [facility] [id number] [place] [address] 06378- 2576 Nov, [facility] [id number] [place] [address] 36636- 3848 Nov, [facility] [id number] [place] [address] 96703- 8423 Nov, [facility] [address] [address] Nov, Severe episode of recurrent major depressive disorder, without psychotic features F33.2 ; PTSD (post-traumatic stress disorder) F43.10 ; Panic disorder F41.0 and BMI 40.0-44.9, adult Z68.41 [facility] [address] [address] Nov, [facility] [address] [address] 5298 Nov, Essential hypertension I10 [facility] [address] [address] Nov, Severe episode of recurrent major depressive disorder, without psychotic features F33.2 [facility] [id number] [address] Nov, Acute pain of left knee M25.562 [facility] [id number] [place] [address] 14757- 4496 Nov, Severe episode of recurrent major depressive disorder, without psychotic features F33.2 ; PTSD (post-traumatic stress disorder) F43.10 ; Panic disorder F41.0 and BMI 40.0-44.9, adult Z68.41 [facility] [id number] [place] [address] 26765- 5355 Oct, [facility] [id number] [place] [address] 62077- 3965 Oct, [facility] [id number] [place] [address] 39826- 3379 Oct, [facility] [id number] [place] [address] 66077- 9060 Oct, [facility] [id number] [place] [address] 65588- 6438 Oct, Dorsalgia, unspecified M54.9 [facility] [id number] [place] [address] 79039- 4744 Oct, Severe episode of recurrent major depressive disorder, without psychotic features F33.2 and Generalized anxiety disorder F41.1 [facility] [id number] [place] [address] 39445- 1905 Oct, [facility] [address] [address] 5102 Oct, [facility] [id number] [place] [address] 31727- 2609 Oct, [facility] [id number] [address] 8567 Oct, [facility] [id number] [place] [address] 05717- 0127 Oct, [facility] [address] [address] 0124 Oct, [facility] [id number] [place] [address] 81412- 0500 Oct, [facility] [id number] [place] [address] 80002- 6507 Oct, [facility] [id number] [place] [address] 39075- 2304 Sep, Dorsalgia, unspecified M54.9 [facility] [id number] [place] [address] 07326- 9277 Sep, [facility] [id number] [place] [address] 12750- 0107 Sep, [facility] [id number] [place] [address] 07487- 9283 Sep, Falling R29.6 ; Essential hypertension I10 ; Chronic obstructive pulmonary disease, unspecified COPD type J44.9 and BMI 40.0-44.9, adult Z68.41 [facility] [id number] [place] [address] 27414- 5883 Sep, [facility] [id number] [place] [address] 85677- 7152 Sep, [facility] [id number] [place] [address] 12053- 4600 Sep, [facility] [id number] [place] [address] 32944- 5571 Sep, Mild intermittent asthma without complication J45.20 [facility] [id number] [place] [address] 19287- 5756 Sep, [facility] [id number] [place] [address] 39301- 8698 Sep, [facility] [id number] [place] [address] 71214- 7260 19 Sep, 2017 [facility] [address] [facility] [id number] [place] [address]- 2327 18 Sep, 2017 [facility] [address] [facility] [id number] [place] [address]- 8811 18 Sep, 2017 [facility] [id number] [place] [address]- 1491 15 Sep, 2017 [facility] [address] [facility] [id number] [place] [address]- 7583 15 Sep, 2017 Essential hypertension I10 [facility] [address] [facility] [id number] [place] [address]- 9566 15 Sep, 2017 [facility] [address] [facility] [id number] [place] [address]- 8062 15 Sep, 2017 [facility] [id number] [place] [address]- 9553 15 Sep, 2017 [facility] [id number] [address]- 5329 14 Sep, 2017 [facility] [address] [address]- 9179 14 Sep, 2017 [facility] [address], [place] [address]- 7843 14 Sep, 2017 [facility] [address], [place] [address]- 9763 13 Sep, 2017 [facility] [place] [facility] [id number], [place] [address]- 5387 13 Sep, 2017 [facility] [place] [facility] [address] [facility] [id number] [address]- 5043 13 Sep, 2017 [facility] [id number] [address]- 6690 12 Sep, 2017 [facility] [id number], [place] [address]- 5604 05 Sep, 2017 Mild intermittent asthma without complication J45.20 [facility] [address], [place] [address]- 3696 August, Essential hypertension I10 [facility] [id number] [place] [address] 82002- 2944 August, BMI 40.0-44.9, adult Z68.41 ; Dorsalgia, unspecified M54.9 ; Allergic state, initial encounter T78.40XA ; Mild intermittent asthma without complication J45.20 and 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 [facility] [id number] [place] [address] 41426- 3580 August, [facility] [id number] [place] [address] 35844- 3960 August, [facility] [id number] [place] [address] 06274- 9760 August, [facility] [id number] [place] [address] 95222- 0527 August, Reactive depression F32.9 [facility] [id number] [place] [address] 36581- 1992 August, [facility] [id number] [place] [address] 62424- 8184 August, [facility] [id number], [place] [address]- 9785 August, [facility] [id number] [place] [address] 95105- 9307 August, [facility] [id number] [address]- 7430 August, [facility] [id number] [place] [address] 02762- 7275 August, [facility] [id number], [place] [address]- 0910 August, [facility] [id number] [place] [address] 76408- 8356 August, Muscle spasms of both lower extremities M62.838 ; Essential hypertension I10 and Reactive depression F32.9 [facility] [id number] [address]- 4046 August, [facility] [address], [place] [address]- 8477 Jul, [facility] [id number] [place] [address] 08360- 5353 Jul, [facility] [id number] [place] [address] 93654- 9363 Jul, [facility] [id number] [place] [address] 94469- 6195 Jul, [facility] [id number] [place] [address] 64932- 5667 Jul, [facility] [id number] [place] [address] 72105- 3689 Jul, [facility] [id number] [place] [address] 15688- 9840 Jul, [facility] [id number] [place] [address] 74986- 8390 Jul, [facility] [address] [address]- 9921 Jul, Essential hypertension I10 ; Other chronic pain G89.29 ; Dorsalgia, unspecified M54.9 ; Reactive depression F32.9 ; Mild intermittent asthma without complication J45.20 ; Allergic state, initial encounter T78.40XA and Muscle spasms of both lower extremities M62.838 IMMUNIZATIONS No Known Immunizations SOCIAL HISTORY Never Assessed REASON FOR VISIT Re:RE:eye drops PLAN OF CARE VITAL SIGNS MEDICATIONS Unknown [...]
--- OUTSIDE RECORDS SUMMARY | 2018-01-11 17:03 | XMS REPORT ---
Author Author ROSALINA GRAHAM Organization [facility] Address [address] [place] [address] Care Team Providers Care Retail Security Professional Name Role Phone ROSALINA GRAHAM Unavailable PROBLEMS Type Condition ICD9-CM Code REK24-AN Code Onset Dates Condition Status SNOMED Code Problem Muscle spasms of both lower extremities M62.838 Active 911641352 Problem Severe episode of recurrent major depressive disorder, without psychotic features F33.2 Active 59790403 Problem Reactive depression F32.9 Active 11811869 Problem Allergic state, initial encounter T78.40XA Active 281391421 Problem Essential hypertension I10 Active 30769701 Problem Dorsalgia, unspecified M54.9 Active 531728284 Problem Other chronic pain G89.29 Active 59124071 Problem Moderate persistent asthma without complication J45.40 Active 508704753 Problem Cervical disc disease with myelopathy M50.00 Active 80739030 Problem Falling R29.6 Active 430935217 Problem Generalized anxiety disorder F41.1 Active 63077554 Problem Panic disorder F41.0 Active 269186735 Problem PTSD (post-traumatic stress disorder) F43.10 Active [id number] ALLERGIES No Information ENCOUNTERS Encounter Location Date Diagnosis [facility] [id number] [place] [address] 87894- 4328 05 Dec, 2017 [facility] [id number] [place] [address] 13892- 0887 Dec, [facility] [id number] [place] [address] 67212- 5491 Nov, Cervical disc disease with myelopathy M50.00 [facility] [id number] [address] 9016 Nov, Cervical disc disease with myelopathy M50.00 ; Moderate persistent asthma without complication J45.40 and BMI 40.0-44.9, adult Z68.41 [facility] [id number] [place] [address] 9871 Nov, [facility] [id number] [place] [address] 69374- 4964 Nov, [facility] [id number] [place] [address] 6216 Nov, [facility] [id number] [place] [address] 57927- 8422 Nov, [facility] [id number] [place] [address]- 4363 Nov, [facility] [id number] [place] [address] 63116- 0523 Nov, [facility] [id number] [place] [address] 03373- 0103 Nov, [facility] [id number] [place] [address] 77438- 8121 Nov, [facility] [id number] [place] [address] 03692- 1633 Nov, [facility] [id number] [address] 6985 Nov, Severe episode of recurrent major depressive disorder, without psychotic features F33.2 ; PTSD (post-traumatic stress disorder) F43.10 ; Panic disorder F41.0 and BMI 40.0-44.9, adult Z68.41 [facility] [id number] [address] 8646 Nov, [facility] [id number] [address] 7960 Nov, Essential hypertension I10 [facility] [id number] [address] 5998 Nov, Severe episode of recurrent major depressive disorder, without psychotic features F33.2 [facility] [id number] [address] 9580 Nov, Acute pain of left knee M25.562 [facility] [id number] [place] [address] 64251- 3786 Nov, Severe episode of recurrent major depressive disorder, without psychotic features F33.2 ; PTSD (post-traumatic stress disorder) F43.10 ; Panic disorder F41.0 and BMI 40.0-44.9, adult Z68.41 [facility] [id number] [place] [address] 69572- 3581 Oct, [facility] [id number] [place] [address] 48648- 1183 Oct, [facility] [id number] [place] [address] 09226- 5573 Oct, [facility] [id number] [place] [address] 34420- 2327 Oct, [facility] [id number] [place] [address] 41328- 9528 Oct, Dorsalgia, unspecified M54.9 [facility] [id number] [place] [address] 52973- 1129 Oct, Severe episode of recurrent major depressive disorder, without psychotic features F33.2 and Generalized anxiety disorder F41.1 [facility] [id number] [place] [address] 91474- 7548 Oct, [facility] [id number] [address]- 6264 Oct, [facility] [id number] [place] [address] 96816- 4786 Oct, [facility] [id number] [address]- 3566 Oct, [facility] [id number] [place] [address] 47276- 8261 Oct, [facility] [id number] [address]- 9721 Oct, [facility] [id number] [place] [address] 93116- 0431 Oct, [facility] [id number] [place] [address] 01980- 9151 Oct, [facility] [id number] [place] [address] 20518- 1029 Sep, Dorsalgia, unspecified M54.9 [facility] [id number] [place] [address] 49233- 0544 Sep, [facility] [id number] [place] [address] 49655- 9402 Sep, [facility] [id number] [place] [address] 35325- 2724 Sep, Falling R29.6 ; Essential hypertension I10 ; Chronic obstructive pulmonary disease, unspecified COPD type J44.9 and BMI 40.0-44.9, adult Z68.41 [facility] [id number] [place] [address] 38727- 3295 Sep, [facility] [id number] [place] [address] 12158- 0005 Sep, [facility] [id number] [place] [address] 53769- 8929 Sep, [facility] [id number] [place] [address] 02762- 5687 Sep, Mild intermittent asthma without complication J45.20 [facility] [id number] [place] [address] 77813- 9703 Sep, [facility] [id number] [place] [address] 99962- 6254 Sep, [facility] [id number] [place] [address] 22267- 1096 19 Sep, 2017 [facility] [address] [facility] [id number] [place] [address]- 4667 18 Sep, 2017 [facility] [address] [facility] [id number] [place] [address]- 7918 18 Sep, 2017 [facility] [id number] [place] [address]- 5060 15 Sep, 2017 [facility] [address] [facility] [id number] [place] [address]- 9098 15 Sep, 2017 Essential hypertension I10 [facility] [place] [facility] [address] [facility] [id number] [place] [address]- 9126 15 Sep, 2017 [facility] [address] [facility] [id number] [place] [address]- 6728 15 Sep, 2017 [facility] [address] [place] [address]- 9074 15 Sep, 2017 [facility] [id number] [address]- 0885 14 Sep, 2017 [facility] [id number] [address]- 1643 14 Sep, 2017 [facility] [id number] [address]- 3197 14 Sep, 2017 [facility] [id number] [address]- 5156 13 Sep, 2017 [facility] [place] [facility] [id number] [address]- 3353 13 Sep, 2017 [facility] [place] [facility] [address] [facility] [id number] [address]- 0801 13 Sep, 2017 [facility] [id number] [address]- 0312 12 Sep, 2017 [facility] [id number] [address]- 9363 05 Sep, 2017 Mild intermittent asthma without complication J45.20 [facility] [id number] [address]- 3038 August, Essential hypertension I10 [facility] [id number] [place] [address] 16874- 9774 August, BMI 40.0-44.9, adult Z68.41 ; Dorsalgia, unspecified M54.9 ; Allergic state, initial encounter T78.40XA ; Mild intermittent asthma without complication J45.20 and 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 [facility] [id number] [place] [address] 16854- 0951 August, [facility] [id number] [place] [address] 58092- 9405 August, [facility] [id number] [place] [address] 74089- 0803 August, [facility] [id number] [place] [address] 03675- 0957 August, Reactive depression F32.9 [facility] [id number] [place] [address] 76245- 4099 August, [facility] [id number] [place] [address] 66256- 8315 August, [facility] [id number] [address]- 4931 August, [facility] [id number] [place] [address] 84900- 0281 August, [facility] [id number] [address]- 1382 August, [facility] [id number] [place] [address] 95161- 4715 August, [facility] [id number] [address]- 3446 August, [facility] [id number] [place] [address] 37988- 6200 August, Muscle spasms of both lower extremities M62.838 ; Essential hypertension I10 and Reactive depression F32.9 [facility] [id number] [place] [address] 68029- 3055 August, [facility] [id number] [address]- 3958 Jul, [facility] [id number] [place] [address] 79175- 8208 Jul, [facility] [id number] [place] [address] 42250- 4556 Jul, [facility] [id number] [place] [address] 21925- 2087 Jul, [facility] [id number] [place] [address] 15999- 7395 Jul, [facility] [id number] [place] [address] 40843- 7138 Jul, [facility] [id number] [place] [address] 76542- 1945 Jul, [facility] [id number] [place] [address] 38338- 8574 Jul, [facility] [address] [address]- 3146 Jul, Essential hypertension I10 ; Other chronic pain G89.29 ; Dorsalgia, unspecified M54.9 ; Reactive depression F32.9 ; Mild intermittent asthma without complication J45.20 ; Allergic state, initial encounter T78.40XA and Muscle spasms of both lower extremities M62.838 IMMUNIZATIONS No Known Immunizations SOCIAL HISTORY Never Assessed REASON FOR VISIT Xanax 10/26- Hold PLAN OF CARE VITAL SIGNS MEDICATIONS Medication Instructions Dosage Frequency Start Date End Date Duration Status Xanax XR 1 MG Orally Once a day 1 tablet in the morning 24h 28 days Active RESULTS No Results PROCEDURES No [...]
--- OUTSIDE RECORDS SUMMARY | 2018-01-11 17:03 | XMS REPORT ---
Author Author ROSALINA GRAHAM Organization [facility] Address [address] [place] [address] Care Team Providers Care Conical Mixer Name Role Phone ROSALINA GRAHAM Unavailable PROBLEMS Type Condition ICD9-CM Code GCX10-FD Code Onset Dates Condition Status SNOMED Code Problem Muscle spasms of both lower extremities M62.838 Active 246682811 Problem Severe episode of recurrent major depressive disorder, without psychotic features F33.2 Active 31693826 Problem Reactive depression F32.9 Active 18796349 Problem Allergic state, initial encounter T78.40XA Active 637078697 Problem Essential hypertension I10 Active 98584387 Problem Dorsalgia, unspecified M54.9 Active 565338164 Problem Other chronic pain G89.29 Active 13484410 Problem Moderate persistent asthma without complication J45.40 Active 001707982 Problem Cervical disc disease with myelopathy M50.00 Active 76103326 Problem Falling R29.6 Active 375395892 Problem Generalized anxiety disorder F41.1 Active 91015950 Problem Panic disorder F41.0 Active 224418889 Problem PTSD (post-traumatic stress disorder) F43.10 Active 54148286 ALLERGIES No Information ENCOUNTERS Encounter Location Date Diagnosis [facility] [id number] [place] [address] 86745- 4522 05 Dec, 2017 [facility] [id number] [place] [address] 28726- 3380 Dec, [facility] [id number] [place] [address] 35025- 8520 Nov, Cervical disc disease with myelopathy M50.00 [facility] [id number] [address] Nov, Cervical disc disease with myelopathy M50.00 ; Moderate persistent asthma without complication J45.40 and BMI 40.0-44.9, adult Z68.41 [facility] [address] [place] [address] 96[address] Nov, [facility] [id number] [place] [address] 64337- 8021 Nov, [facility] [address] [place] [address] Nov, [facility] [id number] [place] [address] 35852- 3045 Nov, [facility] [id number] [place] [address] 6061 Nov, [facility] [id number] [place] [address] 93858- 0904 Nov, [facility] [id number] [place] [address] 38325- 8767 Nov, [facility] [id number] [place] [address] 18342- 0428 Nov, [facility] [id number] [place] [address] 62203- 3467 Nov, [facility] [address] [address] Nov, Severe episode of recurrent major depressive disorder, without psychotic features F33.2 ; PTSD (post-traumatic stress disorder) F43.10 ; Panic disorder F41.0 and BMI 40.0-44.9, adult Z68.41 [facility] [address] [address] 30[address] Nov, [facility] [address] [address] 2150 Nov, Essential hypertension I10 [facility] [address] [address] 2543 Nov, Severe episode of recurrent major depressive disorder, without psychotic features F33.2 [facility] [id number] [address] 34[address] Nov, Acute pain of left knee M25.562 [facility] [id number] [place] [address] 25756- 8710 Nov, Severe episode of recurrent major depressive disorder, without psychotic features F33.2 ; PTSD (post-traumatic stress disorder) F43.10 ; Panic disorder F41.0 and BMI 40.0-44.9, adult Z68.41 [facility] [id number] [place] [address] 87911- 4769 Oct, [facility] [id number] [place] [address] 15554- 8621 Oct, [facility] [id number] [place] [address] 11617- 0249 Oct, [facility] [id number] [place] [address] 03365- 8735 Oct, [facility] [id number] [place] [address] 63269- 1610 Oct, Dorsalgia, unspecified M54.9 [facility] [id number] [place] [address] 78615- 9483 Oct, Severe episode of recurrent major depressive disorder, without psychotic features F33.2 and Generalized anxiety disorder F41.1 [facility] [id number] [place] [address] 55419- 9458 Oct, [facility] [address] [address]- 7545 Oct, [facility] [id number] [place] [address] 07339- 0646 Oct, [facility] [id number] [address] Oct, [facility] [id number] [place] [address] 43539- 2286 Oct, [facility] [address] [address]- 1690 Oct, [facility] [id number] [place] [address] 78473- 7827 Oct, [facility] [id number] [place] [address] 30808- 2641 Oct, [facility] [id number] [place] [address] 11876- 7371 Sep, Dorsalgia, unspecified M54.9 [facility] [id number] [place] [address] 11483- 4165 Sep, [facility] [id number] [place] [address] 63186- 5625 Sep, [facility] [id number] [place] [address] 17428- 1391 Sep, Falling R29.6 ; Essential hypertension I10 ; Chronic obstructive pulmonary disease, unspecified COPD type J44.9 and BMI 40.0-44.9, adult Z68.41 [facility] [id number] [place] [address] 37053- 5134 Sep, [facility] [id number] [place] [address] 17567- 0854 Sep, [facility] [id number] [place] [address] 10172- 3388 Sep, [facility] [id number] [place] [address] 72227- 4489 Sep, Mild intermittent asthma without complication J45.20 [facility] [id number] [place] [address] 40735- 8754 Sep, [facility] [id number] [place] [address] 96183- 0379 Sep, [facility] [id number] [place] [address] 63415- 8952 19 Sep, 2017 [facility] [address] [id number] [place] [address]- 8929 18 Sep, 2017 [facility] [address] [facility] [id number] [place] [address]- 7506 18 Sep, 2017 [facility] [id number] [place] [address]- 9681 15 Sep, 2017 [facility] [address] [facility] [facility] [id number] [place] [address]- 9844 15 Sep, 2017 Essential hypertension I10 [facility] [address] [facility] [id number] [place] [address]- 7413 15 Sep, 2017 [facility] [address] [facility] [id number] [place] [address]- 1759 15 Sep, 2017 [facility] [address] [place] [address]- 6067 15 Sep, 2017 [facility] [id number] [address]- 4517 14 Sep, 2017 [facility] [address] [address]- 9411 14 Sep, 2017 [facility] [address] [address]- 9751 14 Sep, 2017 [facility] [address], [place] [address]- 7768 13 Sep, 2017 [facility] [place] [facility] [id number] [address]- 3724 13 Sep, 2017 [facility] [place] [facility] [address] [facility] [facility] [id number] [address]- 6809 13 Sep, 2017 [facility] [id number] [address]- 4955 12 Sep, 2017 [facility] [id number] [address]- 0853 05 Sep, 2017 Mild intermittent asthma without complication J45.20 [facility] [address] [address]- 0615 August, Essential hypertension I10 [facility] [id number] [place] [address] 97058- 7962 August, BMI 40.0-44.9, adult Z68.41 ; Dorsalgia, unspecified M54.9 ; Allergic state, initial encounter T78.40XA ; Mild intermittent asthma without complication J45.20 and 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 [facility] [id number] [place] [address] 01845- 7503 August, [facility] [id number] [place] [address] 41063- 7681 August, [facility] [id number] [place] [address] 96726- 9140 August, [facility] [id number] [place] [address] 56091- 8856 August, Reactive depression F32.9 [facility] [id number] [place] [address] 20697- 7861 August, [facility] [id number] [place] [address] 94653- 9346 August, [facility] [id number] [address]- 7212 August, [facility] [id number] [place] [address] 09850- 9557 August, [facility] [address] [address]- 0478 August, [facility] [id number] [place] [address] 82382- 8234 August, [facility] [id number] [address]- 8621 August, [facility] [id number] [place] [address] 81562- 8415 August, Muscle spasms of both lower extremities M62.838 ; Essential hypertension I10 and Reactive depression F32.9 [facility] [id number] [address]- 4201 August, [facility] [address] [address]- 3982 Jul, [facility] [id number] [place] [address] 68082- 2322 Jul, [facility] [id number] [place] [address] 40582- 7704 Jul, [facility] [id number] [place] [address] 31467- 3949 Jul, [facility] [id number] [place] [address] 67250- 3559 Jul, [facility] [id number] [place] [address] 67831- 6622 Jul, [facility] [id number] [place] [address] 15018- 8739 Jul, [facility] [id number] [place] [address] 00370- 4965 Jul, [facility] [address] [address]- 6855 Jul, Essential hypertension I10 ; Other chronic pain G89.29 ; Dorsalgia, unspecified M54.9 ; Reactive depression F32.9 ; Mild intermittent asthma without complication J45.20 ; Allergic state, initial encounter T78.40XA and Muscle spasms of both lower extremities M62.838 IMMUNIZATIONS No Known Immunizations SOCIAL HISTORY Never Assessed REASON FOR VISIT Thank you PLAN OF CARE VITAL SIGNS MEDICATIONS Unknown [...]
--- OUTSIDE RECORDS SUMMARY | 2018-01-11 17:04 | XMS REPORT ---
Author Author ROSALINA GRAHAM Organization [facility] Address [address] [place] [address] Care Team Providers Care Targeteer Name Role Phone ROSALINA GRAHAM Unavailable PROBLEMS Type Condition ICD9-CM Code IPX32-LQ Code Onset Dates Condition Status SNOMED Code Problem Muscle spasms of both lower extremities M62.838 Active 939183582 Problem Severe episode of recurrent major depressive disorder, without psychotic features F33.2 Active 08537013 Problem Reactive depression F32.9 Active 95891461 Problem Allergic state, initial encounter T78.40XA Active 788380379 Problem Essential hypertension I10 Active 10861189 Problem Dorsalgia, unspecified M54.9 Active 747441721 Problem Other chronic pain G89.29 Active 96268941 Problem Moderate persistent asthma without complication J45.40 Active 434202516 Problem Cervical disc disease with myelopathy M50.00 Active 14128695 Problem Falling R29.6 Active 901716696 Problem Generalized anxiety disorder F41.1 Active 65514745 Problem Panic disorder F41.0 Active 641790982 Problem PTSD (post-traumatic stress disorder) F43.10 Active 73891720 ALLERGIES No Information ENCOUNTERS Encounter Location Date Diagnosis [facility] [id number] [place] [address] 94796- 5163 05 Dec, 2017 [facility] [id number] [place] [address] 04505- 2542 Dec, [facility] [id number] [place] [address] 35242- 5866 Nov, Cervical disc disease with myelopathy M50.00 [facility] [id number] [address] Nov, Cervical disc disease with myelopathy M50.00 ; Moderate persistent asthma without complication J45.40 and BMI 40.0-44.9, adult Z68.41 [facility] [address] [place] [address] Nov, [facility] [id number] [place] [address] 34591- 1967 Nov, [facility] [address] [place] [address] 7197 Nov, [facility] [id number] [place] [address] 04902- 7345 Nov, [facility] [address] [place] [address] 5971 Nov, [facility] [id number] [place] [address] 06313- 2183 Nov, [facility] [id number] [place] [address] 07825- 5722 Nov, [facility] [id number] [place] [address] 21151- 7278 Nov, [facility] [id number] [place] [address] 18830- 6967 Nov, [facility] [address] [address] 9585 Nov, Severe episode of recurrent major depressive disorder, without psychotic features F33.2 ; PTSD (post-traumatic stress disorder) F43.10 ; Panic disorder F41.0 and BMI 40.0-44.9, adult Z68.41 [facility] [address] [address] 4365 Nov, [facility] [address] [address] 8038 Nov, Essential hypertension I10 [facility] [address] [address] 0497 Nov, Severe episode of recurrent major depressive disorder, without psychotic features F33.2 [facility] [id number] [address] 3[address] Nov, Acute pain of left knee M25.562 [facility] [id number] [place] [address] 68618- 5681 Nov, Severe episode of recurrent major depressive disorder, without psychotic features F33.2 ; PTSD (post-traumatic stress disorder) F43.10 ; Panic disorder F41.0 and BMI 40.0-44.9, adult Z68.41 [facility] [id number] [place] [address] 02962- 9189 Oct, [facility] [id number] [place] [address] 27559- 8057 Oct, [facility] [id number] [place] [address] 07614- 4839 Oct, [facility] [id number] [place] [address] 03825- 1207 Oct, [facility] [id number] [place] [address] 64472- 9658 Oct, Dorsalgia, unspecified M54.9 [facility] [id number] [place] [address] 27802- 2813 Oct, Severe episode of recurrent major depressive disorder, without psychotic features F33.2 and Generalized anxiety disorder F41.1 [facility] [id number] [place] [address] 58519- 6566 Oct, [facility] [address], [place] [address]- 3069 Oct, [facility] [id number] [place] [address] 34870- 9783 Oct, [facility] [id number] [address] 5128 Oct, [facility] [id number] [place] [address] 47471- 1935 Oct, [facility] [address] [address]- 9546 Oct, [facility] [id number] [place] [address] 81587- 5215 Oct, [facility] [id number] [place] [address] 92541- 0624 Oct, [facility] [id number] [place] [address] 60033- 9188 Sep, Dorsalgia, unspecified M54.9 [facility] [id number] [place] [address] 96270- 0413 Sep, [facility] [id number] [place] [address] 58898- 4213 Sep, [facility] [id number] [place] [address] 39287- 0050 Sep, Falling R29.6 ; Essential hypertension I10 ; Chronic obstructive pulmonary disease, unspecified COPD type J44.9 and BMI 40.0-44.9, adult Z68.41 [facility] [id number] [place] [address] 97131- 3246 Sep, [facility] [id number] [place] [address] 67766- 2234 Sep, [facility] [id number] [place] [address] 92012- 4192 Sep, [facility] [id number] [place] [address] 32485- 9845 Sep, Mild intermittent asthma without complication J45.20 [facility] [id number] [place] [address] 02028- 9896 Sep, [facility] [id number] [place] [address] 92169- 3335 Sep, [facility] [id number] [place] [address] 88768- 5858 19 Sep, 2017 [facility] [address] [facility] [id number] [place] [address]- 7785 18 Sep, 2017 [facility] [address] [facility] [id number] [place] [address]- 6060 18 Sep, 2017 [facility] [id number] [place] [address]- 3643 15 Sep, 2017 [facility] [address] [facility] [id number] [place] [address]- 0737 15 Sep, 2017 Essential hypertension I10 [facility] [address] [facility] [id number] [place] [address]- 5808 15 Sep, 2017 [facility] [address] [facility] [id number] [place] [address]- 7583 15 Sep, 2017 [facility] [address] [place] [address]- 0752 15 Sep, 2017 [facility] [id number] [address]- 0080 14 Sep, 2017 [facility] [address], [place] [address]- 0266 14 Sep, 2017 [facility] [address], [place] [address]- 8448 14 Sep, 2017 [facility] [address] [address]- 5046 13 Sep, 2017 [facility] [place] [facility] [id number] [address]- 2813 13 Sep, 2017 [facility] [place] [facility] [address] [facility] [id number] [address]- 0340 13 Sep, 2017 [facility] [id number] [address]- 8060 12 Sep, 2017 [facility] [id number], [place] [address]- 4777 05 Sep, 2017 Mild intermittent asthma without complication J45.20 [facility] [address], [place] [address]- 4369 August, Essential hypertension I10 [facility] [id number] [place] [address] 94784- 9860 August, BMI 40.0-44.9, adult Z68.41 ; Dorsalgia, unspecified M54.9 ; Allergic state, initial encounter T78.40XA ; Mild intermittent asthma without complication J45.20 and 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 [facility] [id number] [place] [address] 34608- 6340 August, [facility] [id number] [place] [address] 01583- 4109 August, [facility] [id number] [place] [address] 96841- 9827 August, [facility] [id number] [place] [address] 91857- 4789 August, Reactive depression F32.9 [facility] [id number] [place] [address] 97857- 5015 August, [facility] [id number] [place] [address] 62482- 9872 August, [facility] [id number] [address]- 1177 August, [facility] [id number] [place] [address] 07982- 3551 August, [facility] [address], [place] [address]- 7223 August, [facility] [id number] [place] [address] 37617- 7924 August, [facility] [id number], [place] [address]- 3575 August, [facility] [id number] [place] [address] 93418- 0073 August, Muscle spasms of both lower extremities M62.838 ; Essential hypertension I10 and Reactive depression F32.9 [facility] [id number] [address]- 8015 August, [facility] [address] [address]- 3103 Jul, [facility] [id number] [place] [address] 22690- 2696 Jul, [facility] [id number] [place] [address] 01331- 6519 Jul, [facility] [id number] [place] [address] 05693- 0225 Jul, [facility] [id number] [place] [address] 34080- 2468 Jul, [facility] [id number] [place] [address] 22089- 5406 Jul, [facility] [id number] [place] [address] 45807- 7281 Jul, [facility] [id number] [place] [address] 28671- 6328 Jul, [facility] [address] [address]- 4975 Jul, Essential hypertension I10 ; Other chronic pain G89.29 ; Dorsalgia, unspecified M54.9 ; Reactive depression F32.9 ; Mild intermittent asthma without complication J45.20 ; Allergic state, initial encounter T78.40XA and Muscle spasms of both lower extremities M62.838 IMMUNIZATIONS No Known Immunizations SOCIAL HISTORY Never Assessed REASON FOR VISIT Help with meds refill PLAN OF CARE VITAL SIGNS MEDICATIONS Unknown [...]
--- OUTSIDE RECORDS SUMMARY | 2018-01-11 17:04 | XMS REPORT ---
Author Author ROSALINA GRAHAM Organization [facility] Address [address] [place] [address] Care Team Providers Care Press Puller Name Role Phone ROSALINA GRAHAM Unavailable PROBLEMS Type Condition ICD9-CM Code [id number] Code Onset Dates Condition Status SNOMED Code Problem Muscle spasms of both lower extremities M62.838 Active 859135177 Problem Severe episode of recurrent major depressive disorder, without psychotic features F33.2 Active 50435502 Problem Reactive depression F32.9 Active 29345471 Problem Allergic state, initial encounter T78.40XA Active 323849627 Problem Essential hypertension I10 Active 64912251 Problem Dorsalgia, unspecified M54.9 Active 409733832 Problem Other chronic pain G89.29 Active 99339185 Problem Moderate persistent asthma without complication J45.40 Active 811564257 Problem Cervical disc disease with myelopathy M50.00 Active 18093156 Problem Falling R29.6 Active 302864125 Problem Generalized anxiety disorder F41.1 Active 14673881 Problem Panic disorder F41.0 Active 095012498 Problem PTSD (post-traumatic stress disorder) F43.10 Active 37479302 ALLERGIES No Information ENCOUNTERS Encounter Location Date Diagnosis [facility] [id number] [place] [address] 34940- 2296 05 Dec, 2017 [facility] [address] [place] [address] 72925- 6052 Dec, [facility] [address] [place] [address] 51139- 4955 Nov, Cervical disc disease with myelopathy M50.00 [facility] [id number], [place] [address] Nov, Cervical disc disease with myelopathy M50.00 ; Moderate persistent asthma without complication J45.40 and BMI 40.0-44.9, adult Z68.41 [facility] [address] [address] Nov, [facility] [address] [place] [address] 41355- 7986 Nov, [facility] [address] [address]708 Nov, [facility] [id number] [place] [address] 89817- 4528 Nov, [facility] [id number] [place] [address] Nov, [facility] [id number] [place] [address] 45138- 9161 Nov, [facility] [id number] [place] [address] 26777- 7652 Nov, [facility] [address] [place] [address] 18719- 9708 Nov, [facility] [address] [place] [address] 79193- 8168 Nov, [facility] [address], [place] [address] 7[address] Nov, Severe episode of recurrent major depressive disorder, without psychotic features F33.2 ; PTSD (post-traumatic stress disorder) F43.10 ; Panic disorder F41.0 and BMI 40.0-44.9, adult Z68.41 [facility] [address], [place] [address] Nov, [facility] [address], [place] [address] 3[address] Nov, Essential hypertension I10 [facility] [address], [place] [address] 0[address] Nov, Severe episode of recurrent major depressive disorder, without psychotic features F33.2 [facility] [id number], [place] [address] Nov, Acute pain of left knee M25.562 [facility] [id number] [place] [address] 88676- 3983 Nov, Severe episode of recurrent major depressive disorder, without psychotic features F33.2 ; PTSD (post-traumatic stress disorder) F43.10 ; Panic disorder F41.0 and BMI 40.0-44.9, adult Z68.41 [facility] [id number] [place] [address] 66588- 7062 Oct, [facility] [id number] [place] [address] 02090- 8954 Oct, [facility] [id number] [place] [address] 17609- 8932 Oct, [facility] [id number] [place] [address] 38460- 0340 Oct, [facility] [id number] [place] [address] 11470- 7199 Oct, Dorsalgia, unspecified M54.9 [facility] [id number] [place] [address] 98471- 4057 Oct, Severe episode of recurrent major depressive disorder, without psychotic features F33.2 and Generalized anxiety disorder F41.1 [facility] [id number] [place] [address] 64319- 0908 Oct, [facility] [address], [place] [address]- 3944 Oct, [facility] [id number] [place] [address] 10156- 1767 Oct, [facility] [id number], [place] [address] 7264 Oct, [facility] [id number] [place] [address] 97397- 8944 Oct, [facility] [address], [place] [address]- 3317 Oct, [facility] [id number] [place] [address] 02528- 0352 Oct, [facility] [id number] [place] [address] 93876- 6793 Oct, [facility] [id number] [place] [address] 81065- 3344 Sep, Dorsalgia, unspecified M54.9 [facility] [id number] [place] [address] 56586- 6367 Sep, [facility] [id number] [place] [address] 91795- 4749 Sep, [facility] [id number] [place] [address] 75147- 6628 Sep, Falling R29.6 ; Essential hypertension I10 ; Chronic obstructive pulmonary disease, unspecified COPD type J44.9 and BMI 40.0-44.9, adult Z68.41 [facility] [id number] [place] [address] 33028- 8977 Sep, [facility] [id number] [place] [address] 67873- 5256 Sep, [facility] [id number] [place] [address] 04469- 2529 Sep, [facility] [id number] [place] [address] 37569- 1508 Sep, Mild intermittent asthma without complication J45.20 [facility] [id number] [place] [address] 16575- 3857 Sep, [facility] [id number] [place] [address] 93360- 9312 Sep, [facility] [id number] [place] [address] 93777- 7653 19 Sep, 2017 [facility] [address] [facility] [id number] [place] [address]- 4335 18 Sep, 2017 [facility] [address] [facility] [id number] [place] [address]- 0786 18 Sep, 2017 [facility] [id number] [address]- 4201 15 Sep, 2017 [facility] [address] [facility] [id number] [place] [address]- 2644 15 Sep, 2017 Essential hypertension I10 [facility] [address] [facility] [id number] [place] [address]- 0720 15 Sep, 2017 [facility] [address] [facility] [id number] [place] [address]- 3873 15 Sep, 2017 [facility] [address] [address]- 1750 15 Sep, 2017 [facility] [id number], [place] [address]- 0059 14 Sep, 2017 [facility] [address], [place] [address]- 8456 14 Sep, 2017 [facility] [address], [place] [address]- 3504 14 Sep, 2017 [facility] [address], [place] [address]- 5562 13 Sep, 2017 [facility] [place] [facility] [id number], [place] [address]- 2803 13 Sep, 2017 [facility] [place] [facility] [address] [facility] [id number], [place] [address]- 2714 13 Sep, 2017 [facility] [id number], [place] [address]- 7147 12 Sep, 2017 [facility] [id number], [place] [address]- 8852 05 Sep, 2017 Mild intermittent asthma without complication J45.20 [facility] [address], [place] [address]- 9889 August, Essential hypertension I10 [facility] [id number] [place] [address] 39261- 9584 August, BMI 40.0-44.9, adult Z68.41 ; Dorsalgia, unspecified M54.9 ; Allergic state, initial encounter T78.40XA ; Mild intermittent asthma without complication J45.20 and 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 [facility] [id number] [place] [address] 85880- 0119 August, [facility] [id number] [place] [address] 77843- 0911 August, [facility] [id number] [place] [address] 15253- 0386 August, [facility] [id number] [place] [address] 68888- 9838 August, Reactive depression F32.9 [facility] [id number] [place] [address] 97131- 9055 August, [facility] [id number] [place] [address] 81341- 2554 August, [facility] [id number], [place] [address]- 4547 August, [facility] [address] [place] [address] 94730- 5677 August, [facility] [address], [place] [address]- 5628 August, [facility] [id number] [place] [address] 66576- 7899 August, [facility] [id number], [place] [address]- 1005 August, [facility] [id number] [place] [address] 03751- 5783 August, Muscle spasms of both lower extremities M62.838 ; Essential hypertension I10 and Reactive depression F32.9 [facility] [id number], [place] [address]- 6229 August, [facility] [address], [place] [address]- 6990 Jul, [facility] [id number] [place] [address] 37288- 2780 Jul, [facility] [address] [place] [address] 07927- 2559 Jul, [facility] [id number] [place] [address] 16451- 8116 Jul, [facility] [id number] [place] [address] 03720- 4336 Jul, [facility] [id number] [place] [address] 80977- 7156 Jul, [facility] [address] [place] [address] 32301- 5338 Jul, [facility] [address] [place] [address] 28529- 7657 Jul, [facility] [address], [place] [address]- 9100 Jul, Essential hypertension I10 ; Other chronic pain G89.29 ; Dorsalgia, unspecified M54.9 ; Reactive depression F32.9 ; Mild intermittent asthma without complication J45.20 ; Allergic state, initial encounter T78.40XA and Muscle spasms of both lower extremities M62.838 IMMUNIZATIONS No Known Immunizations SOCIAL HISTORY Never Assessed REASON FOR VISIT eye drops PLAN OF CARE VITAL SIGNS MEDICATIONS [...]
--- OUTSIDE RECORDS SUMMARY | 2018-01-11 17:04 | XMS REPORT ---
Author Author ROSALINA GRAHAM Organization [facility] [place] Address [address] [place] [address] Care Team Providers Care Customer Service Rep Name Role Phone ROSALINA GRAHAM Unavailable PROBLEMS Type Condition ICD9-CM Code UNM46-IE Code Onset Dates Condition Status SNOMED Code Problem Muscle spasms of both lower extremities M62.838 Active 375284187 Problem Severe episode of recurrent major depressive disorder, without psychotic features F33.2 Active 14274648 Problem Reactive depression F32.9 Active 09190859 Problem Allergic state, initial encounter T78.40XA Active 403784945 Problem Essential hypertension I10 Active 89862692 Problem Dorsalgia, unspecified M54.9 Active 068020731 Problem Other chronic pain G89.29 Active 47347614 Problem Moderate persistent asthma without complication J45.40 Active 174490196 Problem Cervical disc disease with myelopathy M50.00 Active 69184850 Problem Falling R29.6 Active 185743041 Problem Generalized anxiety disorder F41.1 Active 89840693 Problem Panic disorder F41.0 Active 950049003 Problem PTSD (post-traumatic stress disorder) F43.10 Active 69762127 ALLERGIES No Known Allergies ENCOUNTERS Encounter Location Date Diagnosis [facility] [place] [id number] [address] Dec, [facility] [place] [id number] [address] Dec, [facility] [place] [id number] [place] [address]40[address]- 5868 Nov, Cervical disc disease with myelopathy M50.00 [facility] [place] [id number] [address] Nov, Cervical disc disease with myelopathy M50.00 ; Moderate persistent asthma without complication J45.40 and BMI 40.0-44.9, adult Z68.41 [facility] [place] [address], [place] [address] Nov, [facility] [place] [address], [place] [address] Nov, [facility] [place] [address], [place] [address] Nov, [facility] [place] [id number] [place] [address]90- 3371 Nov, [facility] [id number] [address] Nov, [facility] [place] [id number] [place] [address] 73795- 8711 Nov, [facility] [place] [id number] [place] [address] 21029- 9571 Nov, [facility] [place] [id number] [place] [address] 20105- 3488 Nov, [facility] [place] [id number] [place] [address] 58719- 4234 Nov, [facility] [place] [address] [address] Nov, Severe episode of recurrent major depressive disorder, without psychotic features F33.2 ; PTSD (post-traumatic stress disorder) F43.10 ; Panic disorder F41.0 and BMI 40.0-44.9, adult Z68.41 [facility] [place] [address], [place] [address] Nov, [facility] [place] [address], [place] [address] Nov, Essential hypertension I10 [facility] [place] [address] [address] Nov, Severe episode of recurrent major depressive disorder, without psychotic features F33.2 [facility] [place] [address], [place] [address] Nov, Acute pain of left knee M25.562 [facility] [place] [id number] [place] [address], [place] [address] Nov, Severe episode of recurrent major depressive disorder, without psychotic features F33.2 ; PTSD (post-traumatic stress disorder) F43.10 ; Panic disorder F41.0 and BMI 40.0-44.9, adult Z68.41 [facility] [place] [id number] [place] [address] 74514- 4469 Oct, [facility] [place] [id number] [place] [address], [place] [address] Oct, [facility] [place] [id number] [place] [address] 52828- 5223 Oct, [facility] [place] [id number] [place] [address] 21244- 8274 Oct, [facility] [place] [id number] [place] [address] 74624- 9814 Oct, Dorsalgia, unspecified M54.9 [facility] [place] [id number] [place] [address] 67561- 9113 Oct, Severe episode of recurrent major depressive disorder, without psychotic features F33.2 and Generalized anxiety disorder F41.1 [facility] [place] [id number] [place] [address] 69474- 2721 Oct, [facility] [place] [id number], [place] [address] Oct, [facility] [place] [id number] [place] [address] 04509- 1856 Oct, [facility] [place] [id number] [place] [address] 12750- 8114 Oct, [facility] [place] [id number] [place] [address] 02966- 4678 Oct, [facility] [place] [address], [place] [address] Oct, [facility] [place] [id number] [place] [address] 30935- 8852 Oct, [facility] [place] [id number] [place] [address] 58029- 7569 Oct, [facility] [place] [id number] [place] [address] 72608- 6715 Sep, Dorsalgia, unspecified M54.9 [facility] [place] [id number] [place] [address] 23333- 4977 Sep, [facility] [place] [id number] [place] [address] 48283- 8085 Sep, [facility] [place] [id number] [place] [address] 43733- 6081 Sep, Falling R29.6 ; Essential hypertension I10 ; Chronic obstructive pulmonary disease, unspecified COPD type J44.9 and BMI 40.0-44.9, adult Z68.41 [facility] [place] [id number] [place] [address] 73483- 8305 Sep, [facility] [place] [id number] [place] [address] 03032- 5664 Sep, [facility] [place] [id number] [place] [address] 86878- 8373 Sep, [facility] [place] [id number] [place] [address] 54139- 2806 Sep, Mild intermittent asthma without complication J45.20 [facility] [place] [id number] [place] [address] 77370- 5834 Sep, [facility] [place] [id number] [place] [address] 18626- 4940 Sep, [facility] [place] [id number] [place] [address] 94659- 0691 19 Sep, 2017 [facility] [address] [facility] [id number] [place] [address]- 6[address] 18 Sep, 2017 [facility] [address] [facility] [id number] [place] [address] 98926- 2774 18 Sep, 2017 [facility] [id number] [place] [address]- 1267 15 Sep, 2017 [facility] [id number] [place] [address], [place] [address]- 6742 15 Sep, 2017 Essential hypertension I10 [facility] [id number] [place] [address], [place] [address]- 3993 15 Sep, 2017 [facility] [id number] [place] [address] 27109- 5636 15 Sep, 2017 [facility] [id number] [place] [address] 62257- 6452 15 Sep, 2017 [facility] [address], [place] [address]- 0138 14 Sep, 2017 [facility] [id number] [place] [address] 12905- 6649 14 Sep, 2017 [facility] [address], [place] [address]- 4220 14 Sep, 2017 [facility] [address], [place] [address]- 5262 13 Sep, 2017 [facility] [address], [place] [address]- 5594 13 Sep, 2017 [facility] [id number], [place] [address]- 8040 13 Sep, 2017 [facility] [id number] [address]- 0252 12 Sep, 2017 [facility] [address], [place] [address]- 6207 05 Sep, 2017 Mild intermittent asthma without complication J45.20 [facility] [place] [address], [place] [address]- 1135 August, Essential hypertension I10 [facility] [place] [id number] [place] [address] 67320- 3889 August, BMI 40.0-44.9, adult Z68.41 ; Dorsalgia, unspecified M54.9 ; Allergic state, initial encounter T78.40XA ; Mild intermittent asthma without complication J45.20 and 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 [facility] [place] [id number] [place] [address] 69256- 4207 August, [facility] [place] [id number] [place] [address] 17630- 7295 August, [facility] [place] [id number] [place] [address] 15566- 0531 August, [facility] [place] [id number] [place] [address] 69682- 9621 August, Reactive depression F32.9 [facility] [place] [id number] [place] [address] 18725- 8371 August, [facility] [place] [id number] [place] [address] 58229- 6326 August, [facility] [place] [id number] [address]- 2297 August, [facility] [place] [id number] [place] [address] 64889- 9407 August, [facility] [place] [address], [place] [address]- 0349 August, [facility] [place] [id number] [place] [address] 43439- 1109 August, [facility] [place] [id number], [place] [address]- 4293 August, [facility] [place] [id number] [place] [address] 32575- 9625 August, Muscle spasms of both lower extremities M62.838 ; Essential hypertension I10 and Reactive depression F32.9 [facility] [place] [id number] [place] [address] 62714- 4096 August, [facility] [place] [id number] [place] [address] 08109- 6336 Jul, [facility] [place] [id number] [place] [address] 69599- 0125 Jul, [facility] [place] [id number] [place] [address] 71866- 3473 Jul, [facility] [place] [id number] [place] [address] 59507- 7254 Jul, [facility] [place] [id number] [place] [address] 89003- 7006 Jul, [facility] [place] [id number] [place] [address] 90181- 6296 Jul, [facility] [place] [id number] [place] [address] 39201- 8024 Jul, [facility] [place] [id number] [place] [address] 81817- 6251 Jul, [facility] [place] [id number] [place] [address] 77489- 4169 Jul, Essential hypertension I10 ; Other chronic pain G89.29 ; Dorsalgia, unspecified M54.9 ; Reactive depression F32.9 ; Mild intermittent asthma without complication J45.20 ; Allergic state, initial encounter T78.40XA and Muscle spasms of both lower extremities M62.838 IMMUNIZATIONS No Known Immunizations SOCIAL HISTORY Never Assessed REASON FOR VISIT Dr. Sharpe follow up -BRYANT bravo, Contract, pt states his balance is off,pt has falling this month 10/06/2017, ringing in both ears PLAN OF CARE Activity Details Follow Up 3 Months Reason: VITAL SIGNS Height 66 in 2017-10-14 Weight 262.0 lbs 2017-10-14 Temperature 98.5 degrees Fahrenheit 2017-10-14 Heart Rate 80 bpm 2017-10-14 Respiratory Rate 20 2017-10-14 BMI 42.28 kg/m2 2017-10-14 Blood pressure systolic 136 mmHg 2017-10-14 Blood pressure diastolic 82 mmHg 2017-10-14 MEDICATIONS Medication Instructions Dosage Frequency Start Date End Date Duration Status Atenolol 50 MG Orally Once a day 1 tablet 24h Active Zoloft 100 mg Orally Once a day 1 tablet 24h Active Gabapentin 300 MG Orally twice a day 1 capsule 12h Active Xanax XR 1 MG Orally Once a day 1 tablet in the morning 24h 28 days Active Allergy 12 MG Orally every 12 hrs 1 tablet as needed 12h Active Singulair 10 mg Orally Once a day 1 tablet 24h Active Losartan Potassium 100 mg Orally Once a day 1 tablet 24h Active ProAir HFA 108 (90 Base) MCG/ACT Inhalation every 6 hrs 2 puffs as needed 6h 05 Sep, 2017 Active Cyclobenzaprine HCl 10 mg Orally Three times a day 1 tablet as needed 8h Active Breo Ellipta 100-25 MCG/INH Inhalation Once a day 1 puff 24h Sep, Active Lovastatin 40 MG Orally Once [...]
--- OUTSIDE RECORDS SUMMARY | 2018-01-11 17:04 | XMS REPORT ---
Author Author ROSALINA GRAHAM Organization [facility] Address [address] [place] [address] Care Team Providers Care Administrative Officer Name Role Phone ROSALINA GRAHAM Unavailable PROBLEMS Type Condition ICD9-CM Code [id number] Code Onset Dates Condition Status SNOMED Code Problem Muscle spasms of both lower extremities M62.838 Active 705208168 Problem Severe episode of recurrent major depressive disorder, without psychotic features F33.2 Active 03670165 Problem Reactive depression F32.9 Active 14302142 Problem Allergic state, initial encounter T78.40XA Active 562785769 Problem Essential hypertension I10 Active 91355512 Problem Dorsalgia, unspecified M54.9 Active 358107143 Problem Other chronic pain G89.29 Active 89059467 Problem Moderate persistent asthma without complication J45.40 Active 828361246 Problem Cervical disc disease with myelopathy M50.00 Active 37788743 Problem Falling R29.6 Active 910827350 Problem Generalized anxiety disorder F41.1 Active 98015110 Problem Panic disorder F41.0 Active 408038610 Problem PTSD (post-traumatic stress disorder) F43.10 Active 17678088 ALLERGIES No Information ENCOUNTERS Encounter Location Date Diagnosis [facility] [id number] [place] [address] 24679- 2554 05 Dec, 2017 [facility] [id number] [place] [address] 72805- 5224 Dec, [facility] [id number] [place] [address] 50695- 9562 Nov, Cervical disc disease with myelopathy M50.00 [facility] [id number] [address] 45[address] Nov, Cervical disc disease with myelopathy M50.00 ; Moderate persistent asthma without complication J45.40 and BMI 40.0-44.9, adult Z68.41 [facility] [id number] [address] Nov, [facility] [id number] [place] [address] 67364- 7714 Nov, [facility] [id number] [address] Nov, [facility] [id number] [place] [address] 35181- 9824 Nov, [facility] [id number] [address]66 Nov, [facility] [id number] [place] [address] 54161- 2261 Nov, [facility] [id number] [place] [address] 58455- 6060 Nov, [facility] [id number] [place] [address] 09395- 2252 Nov, [facility] [id number] [place] [address] 55439- 0290 Nov, [facility] [id number] [address] Nov, Severe episode of recurrent major depressive disorder, without psychotic features F33.2 ; PTSD (post-traumatic stress disorder) F43.10 ; Panic disorder F41.0 and BMI 40.0-44.9, adult Z68.41 [facility] [address] [address] Nov, [facility] [id number], [place] [address] 3905 Nov, Essential hypertension I10 [facility] [address] [address] 05[address] Nov, Severe episode of recurrent major depressive disorder, without psychotic features F33.2 [facility] [id number] [address] 3120 Nov, Acute pain of left knee M25.562 [facility] [id number] [place] [address] 41244- 3104 Nov, Severe episode of recurrent major depressive disorder, without psychotic features F33.2 ; PTSD (post-traumatic stress disorder) F43.10 ; Panic disorder F41.0 and BMI 40.0-44.9, adult Z68.41 [facility] [id number] [place] [address] 34939- 5403 Oct, [facility] [id number] [place] [address] 42128- 3682 Oct, [facility] [id number] [place] [address] 87325- 8150 Oct, [facility] [id number] [place] [address] 77090- 6453 Oct, [facility] [id number] [place] [address] 45539- 2756 Oct, Dorsalgia, unspecified M54.9 [facility] [id number] [place] [address] 05901- 4947 Oct, Severe episode of recurrent major depressive disorder, without psychotic features F33.2 and Generalized anxiety disorder F41.1 [facility] [id number] [place] [address] 85271- 7272 Oct, [facility] [address], [place] [address] 0063 Oct, [facility] [id number] [place] [address] 15235- 3133 Oct, [facility] [id number], [place] [address] 8628 Oct, [facility] [id number] [place] [address] 49803- 7628 Oct, [facility] [id number] [address] 1917 Oct, [facility] [id number] [place] [address] 87665- 0811 Oct, [facility] [id number] [place] [address] 79260- 3057 Oct, [facility] [id number] [place] [address] 69681- 9872 Sep, Dorsalgia, unspecified M54.9 [facility] [id number] [place] [address] 76852- 7734 Sep, [facility] [id number] [place] [address] 43145- 3027 Sep, [facility] [id number] [place] [address] 59641- 1603 Sep, Falling R29.6 ; Essential hypertension I10 ; Chronic obstructive pulmonary disease, unspecified COPD type J44.9 and BMI 40.0-44.9, adult Z68.41 [facility] [id number] [place] [address] 48951- 1222 Sep, [facility] [id number] [place] [address] 77821- 7552 Sep, [facility] [id number] [place] [address] 23627- 2182 Sep, [facility] [id number] [place] [address] 61340- 4695 Sep, Mild intermittent asthma without complication J45.20 [facility] [id number] [place] [address] 01872- 8304 Sep, [facility] [id number] [place] [address] 77994- 0519 Sep, [facility] [id number] [place] [address] 13286- 0043 19 Sep, 2017 [facility] [address] [facility] [id number] [place] [address]- 9425 18 Sep, 2017 [facility] [address] [facility] [id number] [place] [address]- 6654 18 Sep, 2017 [facility] [id number] [address]- 3477 15 Sep, 2017 [facility] [address] [facility] [id number] [place] [address]- 0372 15 Sep, 2017 Essential hypertension I10 [facility] [address] [facility] [id number] [place] [address]- 8069 15 Sep, 2017 [facility] [address] [facility] [id number] [place] [address]- 9738 15 Sep, 2017 [facility] [id number] [address]- 4227 15 Sep, 2017 [facility] [id number], [place] [address]- 1734 14 Sep, 2017 [facility] [id number] [address]- 9106 14 Sep, 2017 [facility] [id number] [address]- 7839 14 Sep, 2017 [facility] [id number], [place] [address]- 7451 13 Sep, 2017 [facility] [place] [facility] [id number], [place] [address]- 7773 13 Sep, 2017 [facility] [place] [facility] [address] [facility] [id number] [address]- 1747 13 Sep, 2017 [facility] [id number], [place] [address]- 5972 12 Sep, 2017 [facility] [id number], [place] [address]- 4663 05 Sep, 2017 Mild intermittent asthma without complication J45.20 [facility] [address], [place] [address]- 5480 August, Essential hypertension I10 [facility] [id number] [place] [address] 00086- 8001 August, BMI 40.0-44.9, adult Z68.41 ; Dorsalgia, unspecified M54.9 ; Allergic state, initial encounter T78.40XA ; Mild intermittent asthma without complication J45.20 and 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 [facility] [id number] [place] [address] 92500- 2876 August, [facility] [id number] [place] [address] 72500- 9577 August, [facility] [id number] [place] [address] 91532- 2207 August, [facility] [id number] [place] [address] 63068- 2495 August, Reactive depression F32.9 [facility] [id number] [place] [address] 40357- 3470 August, [facility] [id number] [place] [address] 13093- 2227 August, [facility] [id number], [place] [address]- 7653 August, [facility] [id number] [place] [address] 88887- 5583 August, [facility] [address], [place] [address]- 3814 August, [facility] [id number] [place] [address] 83934- 0362 August, [facility] [id number], [place] [address]- 3099 August, [facility] [id number] [place] [address] 64600- 0985 August, Muscle spasms of both lower extremities M62.838 ; Essential hypertension I10 and Reactive depression F32.9 [facility] [id number] [address]- 1019 August, [facility] [address], [place] [address]- 6317 Jul, [facility] [id number] [place] [address] 46684- 3190 Jul, [facility] [id number] [place] [address] 65611- 3376 Jul, [facility] [id number] [place] [address] 70606- 4758 Jul, [facility] [id number] [place] [address] 93643- 4021 Jul, [facility] [id number] [place] [address] 40710- 2991 Jul, [facility] [id number] [place] [address] 54717- 9046 Jul, [facility] [id number] [place] [address] 46128- 9294 Jul, [facility] [id number] [address] Jul, Essential hypertension I10 ; Other chronic pain G89.29 ; Dorsalgia, unspecified M54.9 ; Reactive depression F32.9 ; Mild intermittent asthma without complication J45.20 ; Allergic state, initial encounter T78.40XA and Muscle spasms of both lower extremities M62.838 IMMUNIZATIONS No Known Immunizations SOCIAL HISTORY Never Assessed REASON FOR VISIT Re:RE:refills PLAN OF CARE VITAL SIGNS MEDICATIONS Unknown [...]
--- OUTSIDE RECORDS SUMMARY | 2018-01-11 17:04 | XMS REPORT ---
Author Author ROSALINA GRAHAM Organization [facility] Address [address] [place] [address] Care Team Providers Care Curtain Framer Name Role Phone ROSALINA GRAHAM Unavailable PROBLEMS Type Condition ICD9-CM Code [id number] Code Onset Dates Condition Status SNOMED Code Problem Muscle spasms of both lower extremities M62.838 Active 287820439 Problem Severe episode of recurrent major depressive disorder, without psychotic features F33.2 Active 25775686 Problem Reactive depression F32.9 Active 52668800 Problem Allergic state, initial encounter T78.40XA Active 228930144 Problem Essential hypertension I10 Active 27921837 Problem Dorsalgia, unspecified M54.9 Active 150888726 Problem Other chronic pain G89.29 Active 10667280 Problem Moderate persistent asthma without complication J45.40 Active 508954798 Problem Cervical disc disease with myelopathy M50.00 Active 03269071 Problem Falling R29.6 Active 090223994 Problem Generalized anxiety disorder F41.1 Active 96930300 Problem Panic disorder F41.0 Active 093907851 Problem PTSD (post-traumatic stress disorder) F43.10 Active 69514356 ALLERGIES No Information ENCOUNTERS Encounter Location Date Diagnosis [facility] [id number] [place] [address] 72282- 5132 05 Dec, 2017 [facility] [id number] [place] [address] 20473- 7381 Dec, [facility] [id number] [place] [address] 36056- 7317 Nov, Cervical disc disease with myelopathy M50.00 [facility] [id number] [address] Nov, Cervical disc disease with myelopathy M50.00 ; Moderate persistent asthma without complication J45.40 and BMI 40.0-44.9, adult Z68.41 [facility] [address] [place] [address] 7[address] Nov, [facility] [id number] [place] [address] 58007- 4719 Nov, [facility] [address] [place] [address] 6725 Nov, [facility] [id number] [place] [address] 09597- 0760 Nov, [facility] [address] [place] [address] Nov, [facility] [id number] [place] [address] 88303- 1565 Nov, [facility] [id number] [place] [address] 12511- 5775 Nov, [facility] [id number] [place] [address] 80180- 9022 Nov, [facility] [id number] [place] [address] 54357- 8375 Nov, [facility] [address] [address] Nov, Severe episode of recurrent major depressive disorder, without psychotic features F33.2 ; PTSD (post-traumatic stress disorder) F43.10 ; Panic disorder F41.0 and BMI 40.0-44.9, adult Z68.41 [facility] [address] [address] 8[address] Nov, [facility] [address] [address] 6534 Nov, Essential hypertension I10 [facility] [address], [place] [address] 0476 Nov, Severe episode of recurrent major depressive disorder, without psychotic features F33.2 [facility] [id number] [address] Nov, Acute pain of left knee M25.562 [facility] [id number] [place] [address] 94022- 5529 Nov, Severe episode of recurrent major depressive disorder, without psychotic features F33.2 ; PTSD (post-traumatic stress disorder) F43.10 ; Panic disorder F41.0 and BMI 40.0-44.9, adult Z68.41 [facility] [id number] [place] [address] 44647- 7110 Oct, [facility] [id number] [place] [address] 54276- 5524 Oct, [facility] [id number] [place] [address] 06664- 5372 Oct, [facility] [id number] [place] [address] 60254- 9580 Oct, [facility] [id number] [place] [address] 16036- 6397 Oct, Dorsalgia, unspecified M54.9 [facility] [id number] [place] [address] 15034- 1158 Oct, Severe episode of recurrent major depressive disorder, without psychotic features F33.2 and Generalized anxiety disorder F41.1 [facility] [id number] [place] [address] 42377- 5882 Oct, [facility] [address], [place] [address]- 5474 Oct, [facility] [id number] [place] [address] 97393- 9447 Oct, [facility] [id number] [address]- 2368 Oct, [facility] [id number] [place] [address] 25511- 4368 Oct, [facility] [address], [place] [address]- 7086 Oct, [facility] [id number] [place] [address] 79808- 0891 Oct, [facility] [id number] [place] [address] 04643- 4376 Oct, [facility] [id number] [place] [address] 52027- 4164 Sep, Dorsalgia, unspecified M54.9 [facility] [id number] [place] [address] 56104- 6749 Sep, [facility] [id number] [place] [address] 79713- 6710 Sep, [facility] [id number] [place] [address] 61598- 9193 Sep, Falling R29.6 ; Essential hypertension I10 ; Chronic obstructive pulmonary disease, unspecified COPD type J44.9 and BMI 40.0-44.9, adult Z68.41 [facility] [id number] [place] [address] 51029- 3595 Sep, [facility] [id number] [place] [address] 97213- 0743 Sep, [facility] [id number] [place] [address] 23567- 3984 Sep, [facility] [id number] [place] [address] 37914- 2634 Sep, Mild intermittent asthma without complication J45.20 [facility] [id number] [place] [address] 62771- 0131 Sep, [facility] [id number] [place] [address] 59343- 2065 Sep, [facility] [id number] [place] [address] 20162- 4739 19 Sep, 2017 [facility] [address] [facility] [id number] [place] [address]- 4284 18 Sep, 2017 [facility] [address] [facility] [id number] [place] [address]- 3771 18 Sep, 2017 [facility] [id number] [place] [address]- 6391 15 Sep, 2017 [facility] [address] [facility] [id number] [place] [address]- 9745 15 Sep, 2017 Essential hypertension I10 [facility] [address] [facility] [id number] [place] [address]- 6889 15 Sep, 2017 [facility] [address] [facility] [id number] [place] [address]- 7937 15 Sep, 2017 [facility] [address] [place] [address]- 4633 15 Sep, 2017 [facility] [id number] [address]- 4770 14 Sep, 2017 [facility] [address], [place] [address]- 6768 14 Sep, 2017 [facility] [address], [place] [address]- 9090 14 Sep, 2017 [facility] [address], [place] [address]- 2931 13 Sep, 2017 [facility] [place] [facility] [id number] [address]- 2464 13 Sep, 2017 [facility] [place] [facility] [address] [facility] [id number] [address]- 0806 13 Sep, 2017 [facility] [id number] [address]- 7649 12 Sep, 2017 [facility] [id number] [address]- 4487 05 Sep, 2017 Mild intermittent asthma without complication J45.20 [facility] [address], [place] [address]- 3815 August, Essential hypertension I10 [facility] [id number] [place] [address] 63913- 6370 August, BMI 40.0-44.9, adult Z68.41 ; Dorsalgia, unspecified M54.9 ; Allergic state, initial encounter T78.40XA ; Mild intermittent asthma without complication J45.20 and 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 [facility] [id number] [place] [address] 93157- 3290 August, [facility] [id number] [place] [address] 74421- 6150 August, [facility] [id number] [place] [address] 61039- 0615 August, [facility] [id number] [place] [address] 79972- 4023 August, Reactive depression F32.9 [facility] [id number] [place] [address] 50175- 2578 August, [facility] [id number] [place] [address] 88463- 0358 August, [facility] [id number] [address]- 2572 August, [facility] [id number] [place] [address] 33670- 6023 August, [facility] [address], [place] [address]- 3399 August, [facility] [id number] [place] [address] 74363- 0366 August, [facility] [id number] [address]- 7443 August, [facility] [id number] [place] [address] 27310- 4639 August, Muscle spasms of both lower extremities M62.838 ; Essential hypertension I10 and Reactive depression F32.9 [facility] [id number] [place] [address] 13055- 5436 August, [facility] [address], [place] [address]- 0473 Jul, [facility] [id number] [place] [address] 87499- 1097 Jul, [facility] [id number] [place] [address] 89395- 9537 Jul, [facility] [id number] [place] [address] 25997- 0619 Jul, [facility] [id number] [place] [address] 85747- 5381 Jul, [facility] [id number] [place] [address] 43852- 5490 Jul, [facility] [id number] [place] [address] 09172- 7222 Jul, [facility] [id number] [place] [address] 60909- 2002 Jul, [facility] [address], [place] [address]- 3637 Jul, Essential hypertension I10 ; Other chronic pain G89.29 ; Dorsalgia, unspecified M54.9 ; Reactive depression F32.9 ; Mild intermittent asthma without complication J45.20 ; Allergic state, initial encounter T78.40XA and Muscle spasms of both lower extremities M62.838 IMMUNIZATIONS No Known Immunizations SOCIAL HISTORY Never Assessed REASON FOR VISIT Re:RE:Help with meds refill PLAN OF CARE VITAL [...]
--- OUTSIDE RECORDS SUMMARY | 2018-01-11 17:05 | XMS REPORT ---
Author Author ROSALINA GRAHAM Organization [facility] Address [address] [place] [address] Care Team Providers Care Inspector Casing Name Role Phone ROSALINA GRAHAM Unavailable PROBLEMS Type Condition ICD9-CM Code ANW35-GL Code Onset Dates Condition Status SNOMED Code Problem Muscle spasms of both lower extremities M62.838 Active 395138699 Problem Severe episode of recurrent major depressive disorder, without psychotic features F33.2 Active 17231418 Problem Reactive depression F32.9 Active 35266737 Problem Allergic state, initial encounter T78.40XA Active 322816026 Problem Essential hypertension I10 Active 81718533 Problem Dorsalgia, unspecified M54.9 Active 990793052 Problem Other chronic pain G89.29 Active 61856913 Problem Moderate persistent asthma without complication J45.40 Active 233145302 Problem Cervical disc disease with myelopathy M50.00 Active 71814213 Problem Falling R29.6 Active 695740221 Problem Generalized anxiety disorder F41.1 Active 74495556 Problem Panic disorder F41.0 Active 407526786 Problem PTSD (post-traumatic stress disorder) F43.10 Active 78571507 ALLERGIES No Information ENCOUNTERS Encounter Location Date Diagnosis [facility] [id number] [place] [address] 75211- 6961 05 Dec, 2017 [facility] [id number] [place] [address] 33561- 8598 Dec, [facility] [id number] [place] [address] 11638- 6271 Nov, Cervical disc disease with myelopathy M50.00 [facility] [id number] [address] 0349 Nov, Cervical disc disease with myelopathy M50.00 ; Moderate persistent asthma without complication J45.40 and BMI 40.0-44.[address], [address] [facility] [address] [address]- 9[address] Nov, [facility] [id number] [place] [address] 08371- 6621 Nov, [facility] [address] [address]- 8426 Nov, [facility] [id number] [place] [address] 15547- 2933 Nov, [facility] [address] [place] [address]- 7569 Nov, [facility] [id number] [place] [address] 13501- 1116 Nov, [facility] [id number] [place] [address] 86251- 2731 Nov, [facility] [id number] [place] [address] 37691- 2181 Nov, [facility] [id number] [place] [address] 85960- 9352 Nov, [facility] [address], [place] [address]- 3210 Nov, Severe episode of recurrent major depressive disorder, without psychotic features F33.2 ; PTSD (post-traumatic stress disorder) F43.10 ; Panic disorder F41.0 and BMI 40.0-44.[address], [address] [facility] [address], [place] [address]- 5967 Nov, [facility] [address], [place] [address]- 6289 Nov, Essential hypertension I10 [facility] [address], [place] [address]- 0237 Nov, Severe episode of recurrent major depressive disorder, without psychotic features F33.2 [facility] [id number] [address]- 4119 Nov, Acute pain of left knee M25.562 [facility] [id number] [place] [address] 27286- 9947 Nov, Severe episode of recurrent major depressive disorder, without psychotic features F33.2 ; PTSD (post-traumatic stress disorder) F43.10 ; Panic disorder F41.0 and BMI 40.0-44.9, adult Z68.41 [facility] [id number] [place] [address] 38666- 7401 Oct, [facility] [id number] [place] [address] 89583- 9398 Oct, [facility] [id number] [place] [address] 89878- 9356 Oct, [facility] [id number] [place] [address] 83557- 5110 Oct, [facility] [id number] [place] [address] 52200- 8482 Oct, Dorsalgia, unspecified M54.9 [facility] [id number] [place] [address] 68472- 7626 Oct, Severe episode of recurrent major depressive disorder, without psychotic features F33.2 and Generalized anxiety disorder F41.1 [facility] [id number] [place] [address] 99882- 9643 Oct, [facility] [address], [place] [address]- 7350 Oct, [facility] [id number] [place] [address] 81299- 7941 Oct, [facility] [id number] [address]- 4691 Oct, [facility] [id number] [place] [address] 35265- 3843 Oct, [facility] [address], [place] [address]- 9297 Oct, [facility] [id number] [place] [address] 76835- 6260 Oct, [facility] [id number] [place] [address] 81222- 3007 Oct, [facility] [id number] [place] [address] 57858- 5080 Sep, Dorsalgia, unspecified M54.9 [facility] [id number] [place] [address] 77593- 8415 Sep, [facility] [id number] [place] [address] 30734- 3260 Sep, [facility] [id number] [place] [address] 53196- 6421 Sep, Falling R29.6 ; Essential hypertension I10 ; Chronic obstructive pulmonary disease, unspecified COPD type J44.9 and BMI 40.0-44.9, adult Z68.41 [facility] [id number] [place] [address] 76178- 9608 Sep, [facility] [id number] [place] [address] 21106- 2348 Sep, [facility] [id number] [place] [address] 76814- 3412 Sep, [facility] [id number] [place] [address] 54148- 9018 Sep, Mild intermittent asthma without complication J45.20 [facility] [id number] [place] [address] 70671- 4432 Sep, [facility] [id number] [place] [address] 02339- 4231 Sep, [facility] [id number] [place] [address] 48384- 7778 19 Sep, 2017 [facility] [address] [facility] [id number] [place] [address]- 6654 18 Sep, 2017 [facility] [address] [facility] [id number] [place] [address]- 1316 18 Sep, 2017 [facility] [id number] [place] [address]- 3793 15 Sep, 2017 [facility] [address] [facility] [id number] [place] [address]- 2833 15 Sep, 2017 Essential hypertension I10 [facility] [address] [facility] [id number] [place] [address]- 7198 15 Sep, 2017 [facility] [address] [facility] [id number] [place] [address]- 5368 15 Sep, 2017 [facility] [address] [place] [address]- 2871 15 Sep, 2017 [facility] [id number], [place] [address]- 9015 14 Sep, 2017 [facility] [address], [place] [address]- 6658 14 Sep, 2017 [facility] [address], [place] [address]- 2466 14 Sep, 2017 [facility] [address], [place] [address]- 7683 13 Sep, 2017 [facility] [place] [facility] [id number], [place] [address]- 2207 13 Sep, 2017 [facility] [place] [facility] [address] [facility] [id number], [place] [address]- 3515 13 Sep, 2017 [facility] [id number], [place] [address]- 5863 12 Sep, 2017 [facility] [id number], [place] [address]- 6799 05 Sep, 2017 Mild intermittent asthma without complication J45.20 [facility] [address], [place] [address]- 9499 August, Essential hypertension I10 [facility] [id number] [place] [address] 44891- 1903 August, BMI 40.0-44.9, adult Z68.41 ; Dorsalgia, unspecified M54.9 ; Allergic state, initial encounter T78.40XA ; Mild intermittent asthma without complication J45.20 and 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 [facility] [id number] [place] [address] 22294- 1984 August, [facility] [id number] [place] [address] 60099- 3031 August, [facility] [id number] [place] [address] 75455- 9166 August, [facility] [id number] [place] [address] 91310- 3241 August, Reactive depression F32.9 [facility] [id number] [place] [address] 51721- 9997 August, [facility] [id number] [place] [address] 96764- 1424 August, [facility] [id number], [place] [address]- 3870 August, [facility] [id number] [place] [address] 13461- 4646 August, [facility] [address], [place] [address]- 7101 August, [facility] [id number] [place] [address] 70350- 9571 August, [facility] [id number], [place] [address]- 2581 August, [facility] [id number] [place] [address] 27697- 5456 August, Muscle spasms of both lower extremities M62.838 ; Essential hypertension I10 and Reactive depression F32.9 [facility] [id number] [place] [address] 81404- 4818 August, [facility] [address], [place] [address]- 4441 Jul, [facility] [id number] [place] [address] 45869- 5861 Jul, [facility] [id number] [place] [address] 41563- 5718 Jul, [facility] [id number] [place] [address] 61058- 7369 Jul, [facility] [id number] [place] [address] 94383- 4770 Jul, [facility] [id number] [place] [address] 19087- 4182 Jul, [facility] [id number] [place] [address] 31239- 2272 Jul, [facility] [id number] [place] [address] 09124- 3226 Jul, [facility] [address], [place] [address]- 3373 Jul, Essential hypertension I10 ; Other chronic pain G89.29 ; Dorsalgia, unspecified M54.9 ; Reactive depression F32.9 ; Mild intermittent asthma without complication J45.20 ; Allergic state, initial encounter T78.40XA and Muscle spasms of both lower extremities M62.838 IMMUNIZATIONS No Known Immunizations SOCIAL HISTORY Never Assessed REASON FOR VISIT refills PLAN OF CARE VITAL SIGNS MEDICATIONS Medication Instructions Dosage Frequency Start Date End Date Duration Status Cyclobenzaprine HCl 10 mg Orally Three times a day 1 tablet as needed 8h Active Singulair 10 mg Orally Once a day 1 tablet 24h Active RESULTS No Results PROCEDURES No Known [...]
--- OUTSIDE RECORDS SUMMARY | 2018-01-11 17:05 | XMS REPORT ---
Author Author ROSALINA GRAHAM Organization [facility] Address [address] [place] [address] Care Team Providers Care Construction Equipment Overhauler Name Role Phone ROSALINA GRAHAM Unavailable PROBLEMS Type Condition ICD9-CM Code MWP29-LO Code Onset Dates Condition Status SNOMED Code Problem Muscle spasms of both lower extremities M62.838 Active 526311161 Problem Severe episode of recurrent major depressive disorder, without psychotic features F33.2 Active 94145222 Problem Reactive depression F32.9 Active 38683537 Problem Allergic state, initial encounter T78.40XA Active 991275134 Problem Essential hypertension I10 Active 27002815 Problem Dorsalgia, unspecified M54.9 Active 882482727 Problem Other chronic pain G89.29 Active 72184665 Problem Moderate persistent asthma without complication J45.40 Active 740512296 Problem Cervical disc disease with myelopathy M50.00 Active 79561512 Problem Falling R29.6 Active 254795879 Problem Generalized anxiety disorder F41.1 Active 94431106 Problem Panic disorder F41.0 Active 183032868 Problem PTSD (post-traumatic stress disorder) F43.10 Active 65355388 ALLERGIES No Information ENCOUNTERS Encounter Location Date Diagnosis [facility] [id number] [place] [address] 06868- 4656 05 Dec, 2017 [facility] [address] [place] [address] 00054- 3096 Dec, [facility] [address] [place] [address] 32155- 5971 Nov, Cervical disc disease with myelopathy M50.00 [facility] [id number] [address]- 2277 Nov, Cervical disc disease with myelopathy M50.00 ; Moderate persistent asthma without complication J45.40 and BMI 40.0-44.9, adult Z68.41 [facility] [address] [address]- 6563 Nov, [facility] [address] [place] [address] 10086- 0234 Nov, [facility] [address] [address]- 6968 Nov, [facility] [id number] [place] [address] 30233- 2190 Nov, [facility] [address] [address]- 2496 Nov, [facility] [id number] [place] [address] 99534- 8009 Nov, [facility] [id number] [place] [address] 26603- 7845 Nov, [facility] [address] [place] [address] 25878- 4238 Nov, [facility] [address] [place] [address] 63623- 7847 Nov, [facility] [address] [address]- 4491 Nov, Severe episode of recurrent major depressive disorder, without psychotic features F33.2 ; PTSD (post-traumatic stress disorder) F43.10 ; Panic disorder F41.0 and BMI 40.0-44.9, adult Z68.41 [facility] [address], [place] [address]- 9956 Nov, [facility] [address] [address]- 6405 Nov, Essential hypertension I10 [facility] [address], [place] [address]- 6794 Nov, Severe episode of recurrent major depressive disorder, without psychotic features F33.2 [facility] [id number] [address]- 6271 Nov, Acute pain of left knee M25.562 [facility] [id number] [place] [address] 00765- 8570 Nov, Severe episode of recurrent major depressive disorder, without psychotic features F33.2 ; PTSD (post-traumatic stress disorder) F43.10 ; Panic disorder F41.0 and BMI 40.0-44.9, adult Z68.41 [facility] [id number] [place] [address] 22172- 3156 Oct, [facility] [id number] [place] [address] 43570- 6827 Oct, [facility] [id number] [place] [address] 45916- 0065 Oct, [facility] [id number] [place] [address] 52674- 2770 Oct, [facility] [id number] [place] [address] 64266- 4912 Oct, Dorsalgia, unspecified M54.9 [facility] [id number] [place] [address] 56898- 3747 Oct, Severe episode of recurrent major depressive disorder, without psychotic features F33.2 and Generalized anxiety disorder F41.1 [facility] [id number] [place] [address] 22957- 9893 Oct, [facility] [address], [place] [address]- 1649 Oct, [facility] [id number] [place] [address] 88748- 9481 Oct, [facility] [id number], [place] [address]- 9549 Oct, [facility] [id number] [place] [address] 70113- 3265 Oct, [facility] [address], [place] [address]- 0954 Oct, [facility] [id number] [place] [address] 51037- 3327 Oct, [facility] [id number] [place] [address] 70494- 0515 Oct, [facility] [id number] [place] [address] 51136- 4021 Sep, Dorsalgia, unspecified M54.9 [facility] [id number] [place] [address] 19364- 5976 Sep, [facility] [id number] [place] [address] 03372- 3845 Sep, [facility] [id number] [place] [address] 11482- 5125 Sep, Falling R29.6 ; Essential hypertension I10 ; Chronic obstructive pulmonary disease, unspecified COPD type J44.9 and BMI 40.0-44.9, adult Z68.41 [facility] [id number] [place] [address] 66171- 1267 Sep, [facility] [id number] [place] [address] 30149- 9020 Sep, [facility] [id number] [place] [address] 03956- 0593 Sep, [facility] [id number] [place] [address] 46098- 1410 Sep, Mild intermittent asthma without complication J45.20 [facility] [id number] [place] [address] 18375- 6548 Sep, [facility] [id number] [place] [address] 84863- 2090 Sep, [facility] [id number] [place] [address] 80526- 8506 19 Sep, 2017 [facility] [address] [facility] [id number] [place] [address]- 2260 18 Sep, 2017 [facility] [address] [facility] [id number] [place] [address]- 2766 18 Sep, 2017 [facility] [id number] [address]- 3082 15 Sep, 2017 [facility] [address] [facility] [id number] [place] [address]- 1573 15 Sep, 2017 Essential hypertension I10 [facility] [address] [facility] [id number] [place] [address]- 4580 15 Sep, 2017 [facility] [address] [facility] [id number] [place] [address]- 7568 15 Sep, 2017 [facility] [address] [address]- 8810 15 Sep, 2017 [facility] [id number] [address]- 2513 14 Sep, 2017 [facility] [address], [place] [address]- 1540 14 Sep, 2017 [facility] [address], [place] [address]- 6155 14 Sep, 2017 [facility] [address], [place] [address]- 8902 13 Sep, 2017 [facility] [place] [facility] [id number] [address]- 8473 13 Sep, 2017 [facility] [place] [facility] [address] [facility] [id number] [address]- 7565 13 Sep, 2017 [facility] [id number] [address]- 3257 12 Sep, 2017 [facility] [id number] [address]- 1547 05 Sep, 2017 Mild intermittent asthma without complication J45.20 [facility] [address] [address]- 9630 August, Essential hypertension I10 [facility] [id number] [place] [address] 09583- 6211 August, BMI 40.0-44.9, adult Z68.41 ; Dorsalgia, unspecified M54.9 ; Allergic state, initial encounter T78.40XA ; Mild intermittent asthma without complication J45.20 and 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 [facility] [id number] [place] [address] 41073- 8209 August, [facility] [id number] [place] [address] 61391- 5227 August, [facility] [id number] [place] [address] 42611- 1257 August, [facility] [id number] [place] [address] 77369- 7934 August, Reactive depression F32.9 [facility] [id number] [place] [address] 63017- 0151 August, [facility] [id number] [place] [address] 81482- 0487 August, [facility] [id number], [place] [address]- 3961 August, [facility] [address] [place] [address] 92041- 7862 August, [facility] [address], [place] [address]- [address] August, [facility] [id number] [place] [address] [phone]- [phone] August, [facility] [id number] [address] August, [facility] [id number] [place] [phone]- 0020 August, Muscle spasms of both lower extremities M62.838 ; Essential hypertension I10 and Reactive depression F32.9 [facility] [id number] [address] August, [facility] [address] [address] Jul, [facility] [id number] [place] [address] [id number]- 7214 Jul, [facility] [id number] [place] [address] [id number]- 3589 Jul, [facility] [id number] [place] [address] [id number]- 7595 Jul, [facility] [id number] [place] [address] [id number]- 1534 Jul, [facility] [id number] [place] [address] [id number]- 4458 Jul, [facility] [id number] [place] [address] [id number]- 5500 Jul, [facility] [id number] [place] [address] [id number]- 8721 Jul, [facility] [address] [address] Jul, Essential hypertension I10 ; Other chronic [...]
--- OUTSIDE RECORDS SUMMARY | 2018-01-11 17:05 | XMS REPORT ---
Author Author ROSALINA GRAHAM Organization [facility] Address [address] [place] [address] Care Team Providers Care Flume Maker Name Role Phone ROSALINA GRAHAM Unavailable PROBLEMS Type Condition ICD9-CM Code [id number] Code Onset Dates Condition Status SNOMED Code Problem Muscle spasms of both lower extremities M62.838 Active 423686779 Problem Severe episode of recurrent major depressive disorder, without psychotic features F33.2 Active 13169213 Problem Reactive depression F32.9 Active 75764442 Problem Allergic state, initial encounter T78.40XA Active 050028618 Problem Essential hypertension I10 Active 02773293 Problem Dorsalgia, unspecified M54.9 Active 996784016 Problem Other chronic pain G89.29 Active 30311900 Problem Moderate persistent asthma without complication J45.40 Active 701896501 Problem Cervical disc disease with myelopathy M50.00 Active 13708083 Problem Falling R29.6 Active 034949786 Problem Generalized anxiety disorder F41.1 Active 62972665 Problem Panic disorder F41.0 Active 146749211 Problem PTSD (post-traumatic stress disorder) F43.10 Active 28437489 ALLERGIES No Information ENCOUNTERS Encounter Location Date Diagnosis [facility] [id number] [place] [address] 25644- 6857 05 Dec, 2017 [facility] [id number] [place] [address] 15357- 8334 Dec, [facility] [id number] [place] [address] 56655- 5605 Nov, Cervical disc disease with myelopathy M50.00 [facility] [id number] [address] Nov, Cervical disc disease with myelopathy M50.00 ; Moderate persistent asthma without complication J45.40 and BMI 40.0-44.9, adult Z68.41 [facility] [id number] [place] [address] Nov, [facility] [id number] [place] [address] 23943- 1921 Nov, [facility] [id number] [place] [address] 4234 Nov, [facility] [id number] [place] [address] 90223- 2212 Nov, [facility] THE [facility] [id number] [place] [address] 8634 Nov, [facility] [id number] [place] [address] 96029- 1404 Nov, [facility] [id number] [place] [address] 87406- 1694 Nov, [facility] [id number] [place] [address] 25400- 8325 Nov, [facility] [id number] [place] [address] 35205- 4826 Nov, [facility] [address] [address] 6845 Nov, Severe episode of recurrent major depressive disorder, without psychotic features F33.2 ; PTSD (post-traumatic stress disorder) F43.10 ; Panic disorder F41.0 and BMI 40.0-44.9, adult Z68.41 [facility] [address] [address] 750[address] Nov, [facility] [address] [address] 3378 Nov, Essential hypertension I10 [facility] [address] [address] Nov, Severe episode of recurrent major depressive disorder, without psychotic features F33.2 [facility] [id number] [address] 3765 Nov, Acute pain of left knee M25.562 [facility] [id number] [place] [address] 99978- 1731 Nov, Severe episode of recurrent major depressive disorder, without psychotic features F33.2 ; PTSD (post-traumatic stress disorder) F43.10 ; Panic disorder F41.0 and BMI 40.0-44.9, adult Z68.41 [facility] [id number] [place] [address] 27292- 5502 Oct, [facility] [id number] [place] [address] 31834- 2475 Oct, [facility] [id number] [place] [address] 10605- 4698 Oct, [facility] [id number] [place] [address] 85210- 7159 Oct, [facility] [id number] [place] [address] 35916- 1842 Oct, Dorsalgia, unspecified M54.9 [facility] [id number] [place] [address] 31177- 0648 Oct, Severe episode of recurrent major depressive disorder, without psychotic features F33.2 and Generalized anxiety disorder F41.1 [facility] [id number] [place] [address] 74016- 3104 Oct, [facility] [address] [address] 6276 Oct, [facility] [id number] [place] [address] 81974- 8955 Oct, [facility] [id number] [address] 2102 Oct, [facility] [id number] [place] [address] 89339- 5022 Oct, [facility] [address] [address] 2839 Oct, [facility] [id number] [place] [address] 79398- 1619 Oct, [facility] [id number] [place] [address] 20929- 4874 Oct, [facility] [id number] [place] [address] 89304- 1472 Sep, Dorsalgia, unspecified M54.9 [facility] [id number] [place] [address] 91300- 9657 Sep, [facility] [id number] [place] [address] 99731- 1732 Sep, [facility] [id number] [place] [address] 51026- 7313 Sep, Falling R29.6 ; Essential hypertension I10 ; Chronic obstructive pulmonary disease, unspecified COPD type J44.9 and BMI 40.0-44.9, adult Z68.41 [facility] [id number] [place] [address] 11411- 7358 Sep, [facility] [id number] [place] [address] 02322- 9496 Sep, [facility] [id number] [place] [address] 02616- 4755 Sep, [facility] [id number] [place] [address] 66780- 1553 Sep, Mild intermittent asthma without complication J45.20 [facility] [id number] [place] [address] 71883- 7440 Sep, [facility] [id number] [place] [address] 71690- 8597 Sep, [facility] [id number] [place] [address] 83580- 9975 19 Sep, 2017 [facility] [address] [facility] [id number] [place] [address]- 3281 18 Sep, 2017 [facility] [address] [facility] [id number] [place] [address]- 1740 18 Sep, 2017 [facility] [id number] [place] [address]- 4139 15 Sep, 2017 [facility] [address] [facility] [id number] [place] [address]- 1282 15 Sep, 2017 Essential hypertension I10 [facility] [address] [facility] [id number] [place] [address]- 0828 15 Sep, 2017 [facility] [address] [facility] [id number] [place] [address]- 4048 15 Sep, 2017 [facility] [id number] [place] [address]- 9905 15 Sep, 2017 [facility] [id number] [address]- 4155 14 Sep, 2017 [facility] [address] [address]- 9454 14 Sep, 2017 [facility] [address] [address]- 5060 14 Sep, 2017 [facility] [address] [address]- 5527 [address], [address] [facility] [place] [facility] [id number] [address]- 6350 [address], [address] [facility] [place] [facility] [address] [facility] [id number] [address]- 7597 13 Sep, 2017 [facility] [id number] [address]- 7259 12 Sep, 2017 [facility] [id number] [address]- 0975 05 Sep, 2017 Mild intermittent asthma without complication J45.20 [facility] [address] [address]- 5283 August, Essential hypertension I10 [facility] [id number] [place] [address] 35572- 7927 August, BMI 40.0-44.9, adult Z68.41 ; Dorsalgia, unspecified M54.9 ; Allergic state, initial encounter T78.40XA ; Mild intermittent asthma without complication J45.20 and 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 [facility] [id number] [place] [address] 77073- 9364 August, [facility] [id number] [place] [address] 89534- 4988 August, [facility] [id number] [place] [address] 29725- 9625 August, [facility] [id number] [place] [address] 34471- 3406 August, Reactive depression F32.9 [facility] [id number] [place] [address] 74112- 9151 August, [facility] [id number] [place] [address] 07355- 8147 August, [facility] [id number] [address]- 3722 August, [facility] [id number] [place] [address] 86673- 1804 August, [facility] [id number] [address]- 4098 August, [facility] [id number] [place] [address] 90748- 4304 August, [facility] [id number] [address]- 8835 August, [facility] [id number] [place] [address] 03936- 6629 August, Muscle spasms of both lower extremities M62.838 ; Essential hypertension I10 and Reactive depression F32.9 [facility] [id number] [address]- 7873 August, [facility] [address] [address]- 8793 Jul, [facility] [id number] [place] [address] 41269- 8620 Jul, [facility] [id number] [place] [address] 69791- 6658 Jul, [facility] [id number] [place] [address] 21299- 4985 Jul, [facility] [id number] [place] [address] 16112- 9487 Jul, [facility] [id number] [place] [address] 20918- 8718 Jul, [facility] [id number] [place] [address] 78089- 7764 Jul, [facility] [id number] [place] [address] 22319- 5485 Jul, [facility] [address] [address]- 3182 Jul, Essential hypertension I10 ; Other chronic [...]
--- OUTSIDE RECORDS SUMMARY | 2018-01-11 17:05 | XMS REPORT ---
Author Author ROSALINA GRAHAM Organization [facility] Address [address] [place] [address] Care Team Providers Care [employer]ia[employer] Staff Name Role Phone ROSALINA GRAHAM Unavailable PROBLEMS Type Condition ICD9-CM Code YWE42-SP Code Onset Dates Condition Status SNOMED Code Problem Muscle spasms of both lower extremities M62.838 Active 051828230 Problem Severe episode of recurrent major depressive disorder, without psychotic features F33.2 Active 10725947 Problem Reactive depression F32.9 Active 12491160 Problem Allergic state, initial encounter T78.40XA Active 899569617 Problem Essential hypertension I10 Active 40282853 Problem Dorsalgia, unspecified M54.9 Active 263005473 Problem Other chronic pain G89.29 Active 37110552 Problem Moderate persistent asthma without complication J45.40 Active 561590683 Problem Cervical disc disease with myelopathy M50.00 Active 63247884 Problem Falling R29.6 Active 230387740 Problem Generalized anxiety disorder F41.1 Active 03340433 Problem Panic disorder F41.0 Active 576250854 Problem PTSD (post-traumatic stress disorder) F43.10 Active 28965946 ALLERGIES No Information ENCOUNTERS Encounter Location Date Diagnosis [facility] [id number] [place] [address] 91536- 6061 Dec, [facility] [id number] [place] [address] 04165- 9328 Dec, [facility] [id number] [place] [address] 26268- 2164 Nov, Cervical disc disease with myelopathy M50.00 [facility] [id number], [place] [address] Nov, Cervical disc disease with myelopathy M50.00 ; Moderate persistent asthma without complication J45.40 and BMI 40.0-44.9, adult Z68.41 [facility] [address] [place] [address] Nov, [facility] [id number] [place] [address] 90587- 6913 Nov, [facility] [address] [place] [address] 6146 Nov, [facility] [id number] [place] [address] 84017- 8527 Nov, [facility] [address] [place] [address] 3[address] Nov, [facility] [id number] [place] [address] 53997- 2514 Nov, [facility] [id number] [place] [address] 22906- 0724 Nov, [facility] [id number] [place] [address] 79661- 5110 Nov, [facility] [id number] [place] [address] 90419- 0527 Nov, [facility] [address] [address] Nov, Severe episode of recurrent major depressive disorder, without psychotic features F33.2 ; PTSD (post-traumatic stress disorder) F43.10 ; Panic disorder F41.0 and BMI 40.0-44.9, adult Z68.41 [facility] [address] [address] Nov, [facility] [address], [place] [address] 7[address] Nov, Essential hypertension I10 [facility] [address] [address] 1548 Nov, Severe episode of recurrent major depressive disorder, without psychotic features F33.2 [facility] [id number] [address] 3033 Nov, Acute pain of left knee M25.562 [facility] [id number] [place] [address] 46462- 8289 Nov, Severe episode of recurrent major depressive disorder, without psychotic features F33.2 ; PTSD (post-traumatic stress disorder) F43.10 ; Panic disorder F41.0 and BMI 40.0-44.9, adult Z68.41 [facility] [id number] [place] [address] 87632- 2106 Oct, [facility] [id number] [place] [address] 83584- 0545 Oct, [facility] [id number] [place] [address] 19471- 5706 Oct, [facility] [id number] [place] [address] 38865- 1531 Oct, [facility] [id number] [place] [address] 89018- 0923 Oct, Dorsalgia, unspecified M54.9 [facility] [id number] [place] [address] 48269- 4781 Oct, Severe episode of recurrent major depressive disorder, without psychotic features F33.2 and Generalized anxiety disorder F41.1 [facility] [id number] [place] [address] 21339- 7398 Oct, [facility] [address], [place] [address] Oct, [facility] [id number] [place] [address] 23404- 7800 Oct, [facility] [id number] [address] 6841 Oct, [facility] [id number] [place] [address] 14509- 1097 Oct, [facility] [address], [place] [address]- 1891 Oct, [facility] [id number] [place] [address] 95980- 9611 Oct, [facility] [id number] [place] [address] 40148- 4447 Oct, [facility] [id number] [place] [address] 04710- 4155 Sep, Dorsalgia, unspecified M54.9 [facility] [id number] [place] [address] 87415- 9421 Sep, [facility] [id number] [place] [address] 21388- 9569 Sep, [facility] [id number] [place] [address] 37987- 7166 Sep, Falling R29.6 ; Essential hypertension I10 ; Chronic obstructive pulmonary disease, unspecified COPD type J44.9 and BMI 40.0-44.9, adult Z68.41 [facility] [id number] [place] [address] 83541- 3762 Sep, [facility] [id number] [place] [address] 86013- 8712 Sep, [facility] [id number] [place] [address] 90736- 9123 Sep, [facility] [id number] [place] [address] 47846- 7641 Sep, Mild intermittent asthma without complication J45.20 [facility] [id number] [place] [address] 05272- 2194 Sep, [facility] [id number] [place] [address] 58673- 8237 Sep, [facility] [id number] [place] [address] 83872- 8652 19 Sep, 2017 [facility] [address] [facility] [id number] [place] [address]- 5418 18 Sep, 2017 [facility] [address] [facility] [id number] [place] [address]- 9879 18 Sep, 2017 [facility] [id number] [place] [address]- 2038 15 Sep, 2017 [facility] [address] [facility] [id number] [place] [address]- 0627 15 Sep, 2017 Essential hypertension I10 [facility] [address] [facility] [id number] [place] [address]- 8330 15 Sep, 2017 [facility] [address] [facility] [id number] [place] [address]- 6672 15 Sep, 2017 [facility] [address] [place] [address]- 9959 15 Sep, 2017 [facility] [id number] [address]- 7335 14 Sep, 2017 [facility] [address], [place] [address]- 8682 14 Sep, 2017 [facility] [address], [place] [address]- 0203 14 Sep, 2017 [facility] [address], [place] [address]- 8095 13 Sep, 2017 [facility] [place] [facility] [id number], [place] [address]- 6244 13 Sep, 2017 [facility] [place] [facility] [address] [facility] [id number], [place] [address]- 4479 13 Sep, 2017 [facility] [id number], [place] [address]- 5330 12 Sep, 2017 [facility] [id number], [place] [address]- 8335 05 Sep, 2017 Mild intermittent asthma without complication J45.20 [facility] [address], [place] [address]- 3310 August, Essential hypertension I10 [facility] [id number] [place] [address] 58370- 0646 August, BMI 40.0-44.9, adult Z68.41 ; Dorsalgia, unspecified M54.9 ; Allergic state, initial encounter T78.40XA ; Mild intermittent asthma without complication J45.20 and 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 [facility] [id number] [place] [address] 24800- 1161 August, [facility] [id number] [place] [address] 90464- 5780 August, [facility] [id number] [place] [address] 19805- 5277 August, [facility] [id number] [place] [address] 12987- 5217 August, Reactive depression F32.9 [facility] [id number] [place] [address] 00312- 0447 August, [facility] [id number] [place] [address] 61134- 0040 August, [facility] [id number], [place] [address]- 4086 August, [facility] [id number] [place] [address] 50390- 7013 August, [facility] [address], [place] [address]- 1168 August, [facility] [id number] [place] [address] 44912- 4034 August, [facility] [id number], [place] [address]- 3998 August, [facility] [id number] [place] [address] 11379- 9972 August, Muscle spasms of both lower extremities M62.838 ; Essential hypertension I10 and Reactive depression F32.9 [facility] [id number], [place] [address]- 7304 August, [facility] [address], [place] [address]- 8633 Jul, [facility] [id number] [place] [address] 06160- 0609 Jul, [facility] [id number] [place] [address] 18246- 5655 Jul, [facility] [id number] [place] [address] 41627- 1744 Jul, [facility] [id number] [place] [address] 56810- 9286 Jul, [facility] [id number] [place] [address] 74395- 7379 Jul, [facility] [id number] [place] [address] 37397- 4518 Jul, [facility] [id number] [place] [address] 15916- 8844 Jul, [facility] [address], [place] [address]- 2268 Jul, Essential hypertension I10 ; Other chronic [...]
--- OUTSIDE RECORDS SUMMARY | 2018-01-11 17:06 | XMS REPORT ---
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 Name Role Phone ROSALINA GRAHAM Unavailable PROBLEMS Type Condition ICD9-CM Code OOG42-VX Code Onset Dates Condition Status SNOMED Code Problem Essential hypertension I10 Active 00935572 Problem Other chronic pain G89.29 Active 72328067 Problem Dorsalgia, unspecified M54.9 Active 366475836 Problem Allergic state, initial encounter T78.40XA Active 137658288 Problem Reactive depression F32.9 Active 60275938 Problem Muscle spasms of both lower extremities M62.838 Active 817713336 Problem Mild intermittent asthma without complication J45.20 Active 677576190 Problem PTSD (post-traumatic stress disorder) F43.10 Active 96215531 Problem Panic disorder F41.0 Active 533331731 Problem Severe episode of recurrent major depressive disorder, without psychotic features F33.2 Active 16277548 Problem Generalized anxiety disorder F41.1 Active 76632879 Problem Chronic obstructive pulmonary disease, unspecified COPD type J44.9 Active 71604750 Problem Falling R29.6 Active [id number] ALLERGIES No Information ENCOUNTERS Encounter Location Date Diagnosis [facility] [id number] [address] Dec, [facility] [place] [address] [address] Dec, [facility] [place] [id number] [place] [address] 97859- 5484 Nov, [facility] [place] [address] [address] Nov, [facility] [place] [id number] [address] Nov, [address] [address] Nov, [facility] [place] [id number] [place] [address] 70478- 3609 Nov, [facility] [place] [address] [address] Nov, [facility] [place] [id number] [place] [address] 41817- 6767 Nov, [facility] [place] [id number] [place] [address] 74692- 4719 Nov, [facility] [place] [id number] [place] [address] 16421- 5512 Nov, [facility] [place] [id number] [place] [address] 18374- 2322 Nov, [facility] [place] [id number] [place] [address] 12894- 7249 Nov, Severe episode of recurrent major depressive disorder, without psychotic features F33.2 ; PTSD (post-traumatic stress disorder) F43.10 ; Panic disorder F41.0 and BMI 40.0-44.9, adult Z68.41 [facility] [place] [address] [address] Nov, [facility] [place] [id number] [place] [address] 30128- 6024 Nov, Essential hypertension I10 [facility] [place] [address] [address] 7174 Nov, Severe episode of recurrent major depressive disorder, without psychotic features F33.2 [facility] [place] [id number] [place] [address] 63569- 6004 Nov, Acute pain of left knee M25.562 [facility] [place] [address] [address] 4[address] Nov, Severe episode of recurrent major depressive disorder, without psychotic features F33.2 ; PTSD (post-traumatic stress disorder) F43.10 ; Panic disorder F41.0 and BMI 40.0-44.9, adult Z68.41 [facility] [place] [id number] [place] [address] 19069- 3016 Oct, [facility] [place] [address] [address] Oct, [facility] [place] [id number] [place] [address] 39143- 4790 Oct, [facility] [place] [id number] [place] [address] 75028- 9797 Oct, [facility] [place] [id number] [place] [address] 64576- 4372 Oct, Dorsalgia, unspecified M54.9 [facility] [place] [id number] [place] [address] 27712- 0536 Oct, Severe episode of recurrent major depressive disorder, without psychotic features F33.2 and Generalized anxiety disorder F41.1 [facility] [place] [address] [address] Oct, [facility] [place] [address] [address] 7[address] Oct, [facility] [place] [id number] [address] Oct, [facility] [place] [id number] [address] 2635 Oct, [facility] [place] [id number] [address] 9805 Oct, [facility] [place] [id number] [address] Oct, [facility] [place] [id number] [address] 6184 Oct, [facility] [place] [id number] [place] [address] 36556- 3758 Oct, [facility] [place] [id number] [place] [address] 76602- 5098 Sep, Dorsalgia, unspecified M54.9 [facility] [place] [id number] [place] [address] 59199- 3793 Sep, [facility] [address] [address]- [address]69 Sep, [facility] [id number] [place] [address] 89796- 4697 Sep, Falling R29.6 ; Essential hypertension I10 ; Chronic obstructive pulmonary disease, unspecified COPD type J44.9 and BMI 40.0-44.9, adult Z68.41 [facility] [id number] [place] [address] 11888- 8315 Sep, [facility] [id number] [place] [address] 21925- 0651 Sep, [facility] [id number] [place] [address] 94014- 2924 Sep, [facility] [id number] [place] [address] 31618- 6537 Sep, Mild intermittent asthma without complication J45.20 [facility] [id number] [place] [address] 39966- 0374 Sep, [facility] [id number] [place] [address] 41414- 1968 Sep, [facility] [id number] [place] [address] 50599- 7632 Sep, [facility] [id number] [place] [address] 87199- 5052 Sep, [facility] [id number] [place] [address] 71869- 5837 Sep, [facility] [place] [address] [address]- 2630 15 Sep, 2017 [facility] [id number] [place] [address] 60498- 9914 15 Sep, 2017 Essential hypertension I10 [facility] [address] [address]- 8707 15 Sep, 2017 [facility] [id number] [place] [address] 96986- 4368 15 Sep, 2017 [facility] [id number] [place] [address] 47565- 0631 15 Sep, 2017 [facility] [id number] [place] [address] 53124- 4177 14 Sep, 2017 [facility] [address] [address]- 3259 14 Sep, 2017 [facility] [id number] [place] [address] 84650- 3426 14 Sep, 2017 [facility] [address] [address]- 4267 13 Sep, 2017 [facility] [id number] [place] [address] 43598- 2748 Sep, [facility] [address] [address]- 9703 13 Sep, 2017 [facility] [address] [address]- 3608 Sep, [facility] [address] [address]- 7603 05 Sep, 2017 Mild intermittent asthma without complication J45.20 [facility] [address] [address]- 4677 August, Essential hypertension I10 [facility] [address] [address]- 5508 August, BMI 40.0-44.9, adult Z68.41 ; Dorsalgia, unspecified M54.9 ; Allergic state, initial encounter T78.40XA ; Mild intermittent asthma without complication J45.20 and 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 [facility] [id number] [place] [address] 18337- 2277 August, [facility] [id number] [place] [address] 43393- 3256 August, [facility] [place] [address] [address]20- 4911 August, [facility] [id number] [place] [address] 53601- 0819 August, Reactive depression F32.9 [facility] [place] [id number] [place] [address] 55518- 5580 August, [facility] [place] [address] 64991- 4200 August, [facility] [place] [id number] [place] [address] 86615- 4115 August, [facility] [place] [address] 46597- 6056 August, [facility] [id number] [place] [address] 55385- 8407 August, [facility] [id number] [place] [address] 63523- 9187 August, [facility] [place] [id number] [place] [address] 30145- 6010 August, [facility] [place] [address] 20648- 2116 August, Muscle spasms of both lower extremities M62.838 ; Essential hypertension I10 and Reactive depression F32.9 [facility] [place] [id number] [place] [address] 91567- 7396 August, [facility] [place] [id number] [address]- 0507 Jul, [facility] [place] [address] [address]- 2405 Jul, [facility] [place] [address] [address]- 4426 Jul, [facility] [address] [address]- 6611 Jul, [facility] [address] [address]- 9300 Jul, [facility] [address] [address]- 9107 Jul, [facility] [address] [address]- 2191 Jul, [facility] [address] [address]- 7241 Jul, [facility] [id number] [address]- 5651 Jul, Essential hypertension I10 ; Other chronic pain G89.29 ; Dorsalgia, unspecified M54.9 ; Reactive depression F32.9 ; Mild intermittent asthma without complication J45.20 ; Allergic state, initial encounter T78.40XA and Muscle spasms of both lower extremities M62.838 IMMUNIZATIONS No Known Immunizations SOCIAL HISTORY Never Assessed REASON FOR VISIT Re:RE:Re:RE:New Refill Request PLAN OF CARE VITAL SIGNS [...] shoulder repair Surgical History right foot surgery Hospitalization History childhood for pneumonia
--- OUTSIDE RECORDS SUMMARY | 2018-01-11 17:06 | XMS REPORT ---
Author Author ROSALINA GRAHAM Organization [facility] Address [address] [place] [address] Care Team Providers Care Plant Science Professor Name Role Phone ROSALINA GRAHAM Unavailable PROBLEMS Type Condition ICD9-CM Code [id number] Code Onset Dates Condition Status SNOMED Code Problem Muscle spasms of both lower extremities M62.838 Active 572646689 Problem Severe episode of recurrent major depressive disorder, without psychotic features F33.2 Active 40342556 Problem Reactive depression F32.9 Active 95929560 Problem Allergic state, initial encounter T78.40XA Active 062188134 Problem Essential hypertension I10 Active 74317296 Problem Dorsalgia, unspecified M54.9 Active 894217364 Problem Other chronic pain G89.29 Active 51077588 Problem Moderate persistent asthma without complication J45.40 Active 992767603 Problem Cervical disc disease with myelopathy M50.00 Active 53689578 Problem Falling R29.6 Active 990176851 Problem Generalized anxiety disorder F41.1 Active 74367457 Problem Panic disorder F41.0 Active 263147174 Problem PTSD (post-traumatic stress disorder) F43.10 Active 27356501 ALLERGIES No Information ENCOUNTERS Encounter Location Date Diagnosis [facility] [id number] [place] [address] 77092- 4844 Dec, [facility] [id number] [place] [address] 42393- 3744 Dec, [facility] [id number] [place] [address] 21429- 4691 Nov, Cervical disc disease with myelopathy M50.00 [facility] [id number] [address] Nov, Cervical disc disease with myelopathy M50.00 ; Moderate persistent asthma without complication J45.40 and BMI 40.0-44.9, adult Z68.41 [facility] [id number] [place] [address] Nov, [facility] [id number] [place] [address] 54949- 3913 Nov, [facility] [id number] [place] [address] 8489 Nov, [facility] [id number] [place] [address] 62228- 8598 Nov, [facility] [id number] [place] [address] 9098 Nov, [facility] [id number] [place] [address] 13420- 1355 Nov, [facility] [id number] [place] [address] 96349- 2508 Nov, [facility] [id number] [place] [address] 82458- 8407 Nov, [facility] [id number] [place] [address] 96973- 1032 Nov, [facility] [address] [address] Nov, Severe episode of recurrent major depressive disorder, without psychotic features F33.2 ; PTSD (post-traumatic stress disorder) F43.10 ; Panic disorder F41.0 and BMI 40.0-44.9, adult Z68.41 [facility] [address] [address] 120[address] Nov, [facility] [address] [address] 1047 Nov, Essential hypertension I10 [facility] [address] [address] 0897 Nov, Severe episode of recurrent major depressive disorder, without psychotic features F33.2 [facility] [id number] [address] Nov, Acute pain of left knee M25.562 [facility] [id number] [place] [address] 00741- 0827 Nov, Severe episode of recurrent major depressive disorder, without psychotic features F33.2 ; PTSD (post-traumatic stress disorder) F43.10 ; Panic disorder F41.0 and BMI 40.0-44.9, adult Z68.41 [facility] [id number] [place] [address] 53629- 8237 Oct, [facility] [id number] [place] [address] 10526- 6644 Oct, [facility] [id number] [place] [address] 39225- 1208 Oct, [facility] [id number] [place] [address] 50881- 8209 Oct, [facility] [id number] [place] [address] 99907- 8208 Oct, Dorsalgia, unspecified M54.9 [facility] [id number] [place] [address] 23075- 0783 Oct, Severe episode of recurrent major depressive disorder, without psychotic features F33.2 and Generalized anxiety disorder F41.1 [facility] [id number] [place] [address] 53982- 3373 Oct, [facility] [address] [address] 9671 Oct, [facility] [id number] [place] [address] 92148- 4939 Oct, [facility] [id number] [address] 7292 Oct, [facility] [id number] [place] [address] 16400- 6005 Oct, [facility] [address] [address]- 1167 Oct, [facility] [id number] [place] [address] 26730- 8162 Oct, [facility] [id number] [place] [address] 59174- 0814 Oct, [facility] [id number] [place] [address] 72249- 8094 Sep, Dorsalgia, unspecified M54.9 [facility] [id number] [place] [address] 73158- 1450 Sep, [facility] [id number] [place] [address] 32649- 8045 Sep, [facility] [id number] [place] [address] 70600- 0077 Sep, Falling R29.6 ; Essential hypertension I10 ; Chronic obstructive pulmonary disease, unspecified COPD type J44.9 and BMI 40.0-44.9, adult Z68.41 [facility] [id number] [place] [address] 73990- 2289 Sep, [facility] [id number] [place] [address] 81942- 7769 Sep, [facility] [id number] [place] [address] 24759- 7622 Sep, [facility] [id number] [place] [address] 13949- 1144 Sep, Mild intermittent asthma without complication J45.20 [facility] [id number] [place] [address] 85351- 1159 Sep, [facility] [id number] [place] [address] 51270- 0145 Sep, [facility] [id number] [place] [address] 08352- 6260 19 Sep, 2017 [facility] [address] [facility] [id number] [place] [address]- 1359 18 Sep, 2017 [facility] [address] [facility] [id number] [place] [address]- 1512 18 Sep, 2017 [facility] [id number] [place] [address]- 6457 15 Sep, 2017 [facility] [address] [facility] [id number] [place] [address]- 0720 15 Sep, 2017 Essential hypertension I10 [facility] [address] [facility] [id number] [place] [address]- 6068 15 Sep, 2017 [facility] [address] [facility] [id number] [place] [address]- 1345 15 Sep, 2017 [facility] [id number] [place] [address]- 5136 15 Sep, 2017 [facility] [id number] [address]- 6713 14 Sep, 2017 [facility] [address], [place] [address]- 3766 14 Sep, 2017 [facility] [address], [place] [address]- 7860 14 Sep, 2017 [facility] [address] [address]- 9257 13 Sep, 2017 [facility] [place] [facility] [id number], [place] [address]- 8726 13 Sep, 2017 [facility] [place] [facility] [address] [facility] [id number] [address]- 4732 13 Sep, 2017 [facility] [id number], [place] [address]- 0911 12 Sep, 2017 [facility] [id number] [address]- 0029 05 Sep, 2017 Mild intermittent asthma without complication J45.20 [facility] [address], [place] [address]- 1391 August, Essential hypertension I10 [facility] [id number] [place] [address] 46153- 2441 August, BMI 40.0-44.9, adult Z68.41 ; Dorsalgia, unspecified M54.9 ; Allergic state, initial encounter T78.40XA ; Mild intermittent asthma without complication J45.20 and 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 [facility] [id number] [place] [address] 39440- 0236 August, [facility] [id number] [place] [address] 67720- 1927 August, [facility] [id number] [place] [address] 87608- 3648 August, [facility] [id number] [place] [address] 43338- 4544 August, Reactive depression F32.9 [facility] [id number] [place] [address] 61723- 6792 August, [facility] [id number] [place] [address] 65677- 0609 August, [facility] [id number] [address]- 2048 August, [facility] [id number] [place] [address] 16525- 3696 August, [facility] [address] [address]- 9873 August, [facility] [id number] [place] [address] 33949- 2582 August, [facility] [id number] [address]- 7065 August, [facility] [id number] [place] [address] 49728- 1072 August, Muscle spasms of both lower extremities M62.838 ; Essential hypertension I10 and Reactive depression F32.9 [facility] [id number] [address]- 8155 August, [facility] [address], [place] [address]- 3609 Jul, [facility] [id number] [place] [address] 22482- 7255 Jul, [facility] [id number] [place] [address] 62629- 1430 Jul, [facility] [id number] [place] [address] 10908- 5234 Jul, [facility] [id number] [place] [address] 64686- 5858 Jul, [facility] [id number] [place] [address] 53500- 2659 Jul, [facility] [id number] [place] [address] 70504- 6414 Jul, [facility] [id number] [place] [address] 50794- 0299 Jul, [facility] [address] [address]- 7858 Jul, Essential hypertension I10 ; Other chronic pain G89.29 ; Dorsalgia, unspecified M54.9 ; Reactive depression F32.9 ; Mild intermittent asthma without complication J45.20 ; Allergic state, initial encounter T78.40XA and Muscle spasms of both lower extremities M62.838 IMMUNIZATIONS No Known Immunizations SOCIAL HISTORY Never Assessed REASON FOR VISIT [place] PLAN OF CARE VITAL SIGNS MEDICATIONS Unknown [...]
--- OUTSIDE RECORDS SUMMARY | 2018-01-11 17:06 | XMS REPORT ---
Author Author ROSALINA GRAHAM Organization [facility] Address [address] [place] [address] Care Team Providers Care Wind Commissioning Technician Name Role Phone ROSALINA GRAHAM Unavailable PROBLEMS Type Condition ICD9-CM Code XIE70-ZL Code Onset Dates Condition Status SNOMED Code Problem Essential hypertension I10 Active 68857702 Problem Other chronic pain G89.29 Active 49832817 Problem Dorsalgia, unspecified M54.9 Active 109967784 Problem Allergic state, initial encounter T78.40XA Active 893934771 Problem Reactive depression F32.9 Active 90410914 Problem Muscle spasms of both lower extremities M62.838 Active 291589433 Problem Mild intermittent asthma without complication J45.20 Active 658181318 Problem PTSD (post-traumatic stress disorder) F43.10 Active 73345983 Problem Panic disorder F41.0 Active 109866559 Problem Severe episode of recurrent major depressive disorder, without psychotic features F33.2 Active 51046586 Problem Generalized anxiety disorder F41.1 Active 40284017 Problem Chronic obstructive pulmonary disease, unspecified COPD type J44.9 Active 02192904 Problem Falling R29.6 Active 419624960 ALLERGIES No Information ENCOUNTERS Encounter Location Date Diagnosis [facility] [id number] [address] Dec, [facility] [address] [address] Dec, [facility] [id number] [place] [address]46- [address]28 Nov, [facility] [address] [address] Nov, [facility] [id number] [address] Nov, [place] [address] [address] Nov, [facility] [address] [place] [address] 93668- 4208 Nov, [facility] [address] [address] Nov, [facility] [id number] [place] [address] 58658- 6434 Nov, [facility] [address] [place] [address] 92827- 7706 Nov, [facility] [id number] [place] [address] 25968- 9423 Nov, [facility] [id number] [place] [address] 68701- 2800 Nov, [facility] [id number] [place] [address] 22891- 7741 Nov, Severe episode of recurrent major depressive disorder, without psychotic features F33.2 ; PTSD (post-traumatic stress disorder) F43.10 ; Panic disorder F41.0 and BMI 40.0-44.9, adult Z68.41 [facility] [address] [address] Nov, [facility] [address] [place] [address] 83887- 1613 Nov, Essential hypertension I10 [facility] [address] [address] Nov, Severe episode of recurrent major depressive disorder, without psychotic features F33.2 [facility] [address] [place] [address] 52933- 8329 Nov, Acute pain of left knee M25.562 [facility] [address] [address] Nov, Severe episode of recurrent major depressive disorder, without psychotic features F33.2 ; PTSD (post-traumatic stress disorder) F43.10 ; Panic disorder F41.0 and BMI 40.0-44.9, adult Z68.41 [facility] [address] [place] [address] 88037- 0582 Oct, [facility] [address] [address] Oct, [facility] [id number] [place] [address] 10219- 2739 Oct, [facility] [id number] [place] [address] 88707- 0261 Oct, [facility] [id number] [place] [address] 41534- 3500 Oct, Dorsalgia, unspecified M54.9 [facility] [id number] [place] [address] 89441- 1177 Oct, Severe episode of recurrent major depressive disorder, without psychotic features F33.2 and Generalized anxiety disorder F41.1 [facility] [address] [address] Oct, [facility] [address], [place] [address] 56[address] Oct, [facility] [id number] [address] 3[address] Oct, [facility] [id number], [place] [address] 29[address] Oct, [facility] [id number] [address] 29[address] Oct, [facility] [id number] [address] 79[address] Oct, [facility] [id number] [address] 3698 Oct, [facility] [id number] [place] [address] 16062- 3291 Oct, [facility] [id number] [place] [address] 97355- 0209 Sep, Dorsalgia, unspecified M54.9 [facility] [id number] [place] [address] 63399- 9205 Sep, [facility] [address] [address]- [address] Sep, [facility] [id number] [place] [address] 49508- 6460 Sep, Falling R29.6 ; Essential hypertension I10 ; Chronic obstructive pulmonary disease, unspecified COPD type J44.9 and BMI 40.0-44.9, adult Z68.41 [facility] [id number] [place] [address] 54096- 8782 Sep, [facility] [id number] [place] [address] 51235- 6255 Sep, [facility] [id number] [place] [address] 63753- 7479 Sep, [facility] [id number] [place] [address] 31225- 3252 Sep, Mild intermittent asthma without complication J45.20 [facility] [id number] [place] [address] 36687- 9650 Sep, [facility] [id number] [place] [address] 93963- 1344 Sep, [facility] [id number] [place] [address] 80103- 0306 Sep, [facility] [id number] [place] [address] 81138- 1531 Sep, [facility] [id number] [place] [address] 07330- 2713 Sep, [facility] [address], [place] [address]- [address] 15 Sep, 2017 [facility] [address] [place] [address] 10458- 7635 15 Sep, 2017 Essential hypertension I10 [facility] [address] [address]- 7937 15 Sep, 2017 [facility] [id number] [place] [address] 33289- 0173 15 Sep, 2017 [facility] [address] [place] [address] 94216- 3505 15 Sep, 2017 [facility] [id number] [place] [address] 74709- 3995 14 Sep, 2017 [facility] [address], [place] [address]- 3442 14 Sep, 2017 [facility] [address] [place] [address] 37795- 3087 14 Sep, 2017 [facility] [address], [place] [address]- 7959 13 Sep, 2017 [facility] [address] [place] [address] 14595- 9937 Sep, [facility] [address], [place] [address]- 1419 13 Sep, 2017 [facility] [address], [place] [address]- 8295 Sep, [facility] [address], [place] [address]- 4382 05 Sep, 2017 Mild intermittent asthma without complication J45.20 [facility] [address], [place] [address]- 2848 August, Essential hypertension I10 [facility] [address], [place] [address]- 1009 August, BMI 40.0-44.9, adult Z68.41 ; Dorsalgia, unspecified M54.9 ; Allergic state, initial encounter T78.40XA ; Mild intermittent asthma without complication J45.20 and 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 [facility] [id number] [place] [address] 23021- 8169 August, [facility] [id number] [place] [address] 48712- 8981 August, [facility] [address] [address]90- 5814 August, [facility] [id number] [place] [address] 94416- 7248 August, Reactive depression F32.9 [facility] [id number] [place] [address] 83264- 5851 August, [facility] [address] 78834- 8446 August, [facility] [id number] [place] [address] 43421- 7287 August, [facility] [address] 02825- 0724 August, [facility] [id number] [place] [address] 61538- 1925 August, [facility] [id number] [place] [address] 36290- 2515 August, [facility] [id number] [place] [address] 03138- 7832 August, [facility] [address] 26[address]- 8347 August, Muscle spasms of both lower extremities M62.838 ; Essential hypertension I10 and Reactive depression F32.9 [facility] [id number] [place] [address] 30685- 0963 August, [facility] [id number] [address]- 5914 Jul, [facility] [address], [place] [address]- 4793 Jul, [facility] [address], [place] [address]- 3103 Jul, [facility] [address], [place] [address]- 8526 Jul, [facility] [address] [address]- 6160 Jul, [facility] [address], [place] [address]- 4936 Jul, [facility] [address] [address]- 1198 Jul, [facility] [address], [place] [address]- 3717 Jul, [facility] [id number] [address]- 8883 Jul, Essential hypertension I10 ; Other chronic pain G89.29 ; Dorsalgia, unspecified M54.9 ; Reactive depression F32.9 ; Mild intermittent asthma without complication J45.20 ; Allergic state, initial encounter T78.40XA and Muscle spasms of both lower extremities M62.838 IMMUNIZATIONS No Known Immunizations SOCIAL HISTORY Never Assessed REASON FOR VISIT Med change PLAN OF CARE VITAL SIGNS MEDICATIONS Medication Instructions Dosage Frequency Start Date End Date Duration Status Breo Ellipta 100-25 MCG/INH Inhalation Once a day 1 puff 24h Sep, Active RESULTS No Results PROCEDURES No [...]
--- OUTSIDE RECORDS SUMMARY | 2018-01-11 17:06 | XMS REPORT ---
Author Author ROSALINA GRAHAM Organization [facility] Address [address] [place] [address] Care Team Providers Care Hospital Supervisor Name Role Phone ROSALINA GRAHAM Unavailable PROBLEMS Type Condition ICD9-CM Code NMT54-MF Code Onset Dates Condition Status SNOMED Code Problem Essential hypertension I10 Active 05252304 Problem Other chronic pain G89.29 Active 44115196 Problem Dorsalgia, unspecified M54.9 Active 517481925 Problem Allergic state, initial encounter T78.40XA Active 242128892 Problem Reactive depression F32.9 Active 64244589 Problem Muscle spasms of both lower extremities M62.838 Active 245997361 Problem Mild intermittent asthma without complication J45.20 Active 020003631 Problem PTSD (post-traumatic stress disorder) F43.10 Active 48942833 Problem Panic disorder F41.0 Active 662561809 Problem Severe episode of recurrent major depressive disorder, without psychotic features F33.2 Active 51209089 Problem Generalized anxiety disorder F41.1 Active 72987441 Problem Chronic obstructive pulmonary disease, unspecified COPD type J44.9 Active 27734800 Problem Falling R29.6 Active 013254330 ALLERGIES No Information ENCOUNTERS Encounter Location Date Diagnosis [facility] [id number] [address] Dec, [facility] [address] [address] Dec, [facility] [id number] [place] [address]- [address] Nov, [facility] [address] [address] Nov, [facility] [id number] [address] Nov, [place] [address] [address] Nov, [facility] [id number] [place] [address] 31267- 0648 Nov, [facility] [id number] [address] Nov, [facility] [id number] [place] [address] 88620- 5128 Nov, [facility] [id number] [place] [address] 48331- 3805 Nov, [facility] [id number] [place] [address] 05329- 5102 Nov, [facility] [id number] [place] [address] 91263- 5017 Nov, [facility] [id number] [place] [address] 83717- 3089 Nov, Severe episode of recurrent major depressive disorder, without psychotic features F33.2 ; PTSD (post-traumatic stress disorder) F43.10 ; Panic disorder F41.0 and BMI 40.0-44.9, adult Z68.41 [facility] [address] [address] Nov, [facility] [id number] [place] [address] 80229- 2058 Nov, Essential hypertension I10 [facility] [address] [address] Nov, Severe episode of recurrent major depressive disorder, without psychotic features F33.2 [facility] [id number] [place] [address] 71809- 0857 Nov, Acute pain of left knee M25.562 [facility] [address] [address] Nov, Severe episode of recurrent major depressive disorder, without psychotic features F33.2 ; PTSD (post-traumatic stress disorder) F43.10 ; Panic disorder F41.0 and BMI 40.0-44.9, adult Z68.41 [facility] [id number] [place] [address] 68192- [address]596 Oct, [facility] [address] [address] Oct, [facility] [id number] [place] [address] 89200- 8406 Oct, [facility] [id number] [place] [address] 01828- 0312 Oct, [facility] [id number] [place] [address] 36948- 3164 Oct, Dorsalgia, unspecified M54.9 [facility] [id number] [place] [address] 94320- 5756 Oct, Severe episode of recurrent major depressive disorder, without psychotic features F33.2 and Generalized anxiety disorder F41.1 [facility] [address] [address] Oct, [facility] [address] [address] Oct, [facility] [id number] [address] 33[address] Oct, [facility] [id number] [address] 9084 Oct, [facility] [id number] [address] 1448 Oct, [facility] [id number] [address] 0095 Oct, [facility] [id number] [address] 6811 Oct, [facility] [id number] [place] [address] 15344- 2453 Oct, [facility] [id number] [place] [address] 10602- 7053 Sep, Dorsalgia, unspecified M54.9 [facility] [id number] [place] [address] 11660- 4739 Sep, [facility] [address] [address]- [address] Sep, [facility] [id number] [place] [address] 93285- 5775 Sep, Falling R29.6 ; Essential hypertension I10 ; Chronic obstructive pulmonary disease, unspecified COPD type J44.9 and BMI 40.0-44.9, adult Z68.41 [facility] [id number] [place] [address] 16636- 5073 Sep, [facility] [id number] [place] [address] 08406- 1930 Sep, [facility] [id number] [place] [address] 79386- 3088 Sep, [facility] [id number] [place] [address] 02932- 2974 Sep, Mild intermittent asthma without complication J45.20 [facility] [id number] [place] [address] 90657- 7477 Sep, [facility] [id number] [place] [address] 46516- 9486 Sep, [facility] [id number] [place] [address] 79544- 3119 Sep, [facility] [id number] [place] [address] 32613- 3185 Sep, [facility] [id number] [place] [address] 60711- 8786 Sep, [facility] [id number] [address]- 1299 15 Sep, 2017 [facility] [id number] [place] [address] 08517- 6430 15 Sep, 2017 Essential hypertension I10 [facility] [address] [address]- 4465 15 Sep, 2017 [facility] [id number] [place] [address] 47487- 5129 15 Sep, 2017 [facility] [id number] [place] [address] 52521- 8129 15 Sep, 2017 [facility] [id number] [place] [address] 88614- 9550 14 Sep, 2017 [facility] [address] [address]- 5556 14 Sep, 2017 [facility] [id number] [place] [address] 54593- 4654 14 Sep, 2017 [facility] [address] [address]- 9838 13 Sep, 2017 [facility] [id number] [place] [address] 23391- 7521 Sep, [facility] [id number] [address]- 1555 13 Sep, 2017 [facility] [address] [address]- 7404 Sep, [facility] [address] [address]- 7780 05 Sep, 2017 Mild intermittent asthma without complication J45.20 [facility] [address] [address]- 7774 August, Essential hypertension I10 [facility] [address] [address]- 5814 August, BMI 40.0-44.9, adult Z68.41 ; Dorsalgia, unspecified M54.9 ; Allergic state, initial encounter T78.40XA ; Mild intermittent asthma without complication J45.20 and 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 [facility] [id number] [place] [address] 99428- 4720 August, [facility] [id number] [place] [address] 82846- 8677 August, [facility] [address] [address]- 5022 August, [facility] [id number] [place] [address] 87743- 3657 August, Reactive depression F32.9 [facility] [id number] [place] [address] 81416- 2307 August, [facility] [address] 13597- 6309 August, [facility] [id number] [place] [address] 27504- 3322 August, [facility] [address] 57809- 6183 August, [facility] [id number] [place] [address] 18431- 2260 August, [facility] [id number] [place] [address] 55831- 2338 August, [facility] [id number] [place] [address] 30405- 8085 August, [facility] [address] [address]- 0186 August, Muscle spasms of both lower extremities M62.838 ; Essential hypertension I10 and Reactive depression F32.9 [facility] [id number] [place] [address] 15347- 6620 August, [facility] [id number] [address]- 5675 Jul, [facility] [id number] [address]- 5861 Jul, [facility] [id number] [address]- 1466 Jul, [facility] [id number] [address]- 9373 Jul, [facility] [address] [address]- 3362 Jul, [facility] [id number] [address]- 0111 Jul, [facility] [address] [address]- 1748 Jul, [facility] [id number] [address]- 4482 Jul, [facility] [id number] [address]- 7766 Jul, Essential hypertension I10 ; Other chronic pain G89.29 ; Dorsalgia, unspecified M54.9 ; Reactive depression F32.9 ; Mild intermittent asthma without complication J45.20 ; Allergic state, initial encounter T78.40XA and Muscle spasms of both lower extremities M62.838 IMMUNIZATIONS No Known Immunizations SOCIAL HISTORY Never Assessed REASON FOR VISIT BP PLAN OF CARE VITAL SIGNS MEDICATIONS Unknown [...]
--- OUTSIDE RECORDS SUMMARY | 2018-01-11 17:07 | XMS REPORT ---
Author Author ROSALINA GRAHAM Organization [facility] Address [address] [place] [address] Care Team Providers Care Wine Fermenter Name Role Phone ROSALINA GRAHAM Unavailable PROBLEMS Type Condition ICD9-CM Code ZDR80-PT Code Onset Dates Condition Status SNOMED Code Problem Essential hypertension I10 Active 41055296 Problem Other chronic pain G89.29 Active 29648243 Problem Dorsalgia, unspecified M54.9 Active 689468404 Problem Allergic state, initial encounter T78.40XA Active 041818769 Problem Reactive depression F32.9 Active 57122654 Problem Muscle spasms of both lower extremities M62.838 Active 091867914 Problem Mild intermittent asthma without complication J45.20 Active 823052957 Problem PTSD (post-traumatic stress disorder) F43.10 Active 23009026 Problem Panic disorder F41.0 Active 783659134 Problem Severe episode of recurrent major depressive disorder, without psychotic features F33.2 Active 21364351 Problem Generalized anxiety disorder F41.1 Active 80559133 Problem Chronic obstructive pulmonary disease, unspecified COPD type J44.9 Active 80370275 Problem Falling R29.6 Active 131078327 ALLERGIES No Information ENCOUNTERS Encounter Location Date Diagnosis [facility] [id number] [address] 5[address] Dec, [facility] [address], [place] [address] 4158 Dec, [facility] [id number] [place] [address] 92601- 8983 Nov, [facility] [address], [place] [address] 8653 Nov, [facility] [id number], [place] [address]- 0456 Nov, [place] [address], [place] [address] 9373 Nov, [facility] [id number] [place] [address] 69574- 6566 Nov, [facility] [address], [place] [address]- 8347 Nov, [facility] [id number] [place] [address] 46362- 2631 Nov, [facility] [id number] [place] [address] 46803- 6435 Nov, [facility] [id number] [place] [address] 33361- 7389 Nov, [facility] [id number] [place] [address] 03439- 7455 Nov, [facility] [id number] [place] [address] 53909- 2109 Nov, Severe episode of recurrent major depressive disorder, without psychotic features F33.2 ; PTSD (post-traumatic stress disorder) F43.10 ; Panic disorder F41.0 and BMI 40.0-44.9, adult Z68.41 [facility] [address], [place] [address]- 6158 Nov, [facility] [id number] [place] [address] 83578- 1358 Nov, Essential hypertension I10 [facility] [address], [place] [address]- 4336 Nov, Severe episode of recurrent major depressive disorder, without psychotic features F33.2 [facility] [address] [place] [address] 18031- 6914 Nov, Acute pain of left knee M25.562 [facility] [address] [address]- 4701 Nov, Severe episode of recurrent major depressive disorder, without psychotic features F33.2 ; PTSD (post-traumatic stress disorder) F43.10 ; Panic disorder F41.0 and BMI 40.0-44.9, adult Z68.41 [facility] [id number] [place] [address] 13187- 1556 Oct, [facility] [address], [place] [address]- 1542 Oct, [facility] [id number] [place] [address] 49295- 1166 Oct, [facility] [id number] [place] [address] 62444- 5811 Oct, [facility] [id number] [place] [address] 72563- 8628 Oct, Dorsalgia, unspecified M54.9 [facility] [id number] [place] [address] 35242- 4747 Oct, Severe episode of recurrent major depressive disorder, without psychotic features F33.2 and Generalized anxiety disorder F41.1 [facility] [address] [address]- 5771 Oct, [facility] [address], [place] [address]- 9768 Oct, [facility] [id number], [place] [address]- 1684 Oct, [facility] [id number], [place] [address]- 8527 Oct, [facility] [id number], [place] [address]- 1495 Oct, [facility] [id number], [place] [address]- 3912 Oct, [facility] [id number], [place] [address]- 9204 Oct, [facility] [id number] [place] [address] 24474- 2182 Oct, [facility] [id number] [place] [address] 26754- 0685 Sep, Dorsalgia, unspecified M54.9 [facility] [id number] [place] [address] 58878- 8775 Sep, [facility] [address] 99866- 7602 Sep, [facility] [id number] [place] [address] 76959- 7852 Sep, Falling R29.6 ; Essential hypertension I10 ; Chronic obstructive pulmonary disease, unspecified COPD type J44.9 and BMI 40.0-44.9, adult Z68.41 [facility] [id number] [place] [address] 97749- 4976 Sep, [facility] [id number] [place] [address] 21290- 9451 Sep, [facility] [id number] [place] [address] 67028- 7526 Sep, [facility] [id number] [place] [address] 56260- 7093 Sep, Mild intermittent asthma without complication J45.20 [facility] [id number] [place] [address] 25228- 1560 Sep, [facility] [id number] [place] [address] 47480- 6429 Sep, [facility] [id number] [place] [address] 17355- 8838 Sep, [facility] [id number] [place] [address] 27356- 5272 Sep, [facility] [id number] [place] [address] 29316- 1834 Sep, [facility] [address], [place] [address]- 5306 15 Sep, 2017 [facility] [id number] [place] [address] 12574- 9124 15 Sep, 2017 Essential hypertension I10 [facility] [address], [place] [address]- 1932 15 Sep, 2017 [facility] [id number] [place] [address] 88697- 1902 15 Sep, 2017 [facility] [id number] [place] [address] 61695- 4431 15 Sep, 2017 [facility] [id number] [place] [address] 61198- 1734 14 Sep, 2017 [facility] [address], [place] [address]- 1318 14 Sep, 2017 [facility] [id number] [place] [address] 35881- 0697 14 Sep, 2017 [facility] [address], [place] [address]- 9886 13 Sep, 2017 [facility] [id number] [place] [address] 10723- 9495 Sep, [facility] [address], [place] [address]- 7930 13 Sep, 2017 [facility] [address], [place] [address]- 8896 Sep, [facility] [address], [place] [address]- 8358 05 Sep, 2017 Mild intermittent asthma without complication J45.20 [facility] [address], [place] [address]- 2749 August, Essential hypertension I10 [facility] [address] [address]- 9348 August, BMI 40.0-44.9, adult Z68.41 ; Dorsalgia, unspecified M54.9 ; Allergic state, initial encounter T78.40XA ; Mild intermittent asthma without complication J45.20 and 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 [facility] [id number] [place] [address] 77971- 8294 August, [facility] [id number] [place] [address] 85619- 7782 August, [facility] [address] 47648- 8032 August, [facility] [id number] [place] [address] 79200- 7049 August, Reactive depression F32.9 [facility] [id number] [place] [address] 19345- 6131 August, [facility] [address] 22356- 7387 August, [facility] [id number] [place] [address] 17260- 4118 August, [facility] [address] 51642- 1926 August, [facility] [id number] [place] [address] 39059- 9455 August, [facility] [id number] [place] [address] 00756- 5400 August, [facility] [id number] [place] [address] 22355- 4148 August, [facility] [address] 38978- 3075 August, Muscle spasms of both lower extremities M62.838 ; Essential hypertension I10 and Reactive depression F32.9 [facility] [id number] [place] [address] 35647- 1448 August, [facility] [id number] [address]- 8590 Jul, [facility] [address], [place] [address]- 6991 Jul, [facility] [address], [place] [address]- 7553 Jul, [facility] [address], [place] [address]- 4128 Jul, [facility] [address], [place] [address]- 8710 Jul, [facility] [address], [place] [address]- 7637 Jul, [facility] [address], [place] [address]- 9542 Jul, [facility] [address], [place] [address]- 7454 Jul, [facility] [id number] [address]- 7429 Jul, Essential hypertension I10 ; Other chronic pain G89.29 ; Dorsalgia, unspecified M54.9 ; Reactive depression F32.9 ; Mild intermittent asthma without complication J45.20 ; Allergic state, initial encounter T78.40XA and Muscle spasms of both lower extremities M62.838 IMMUNIZATIONS No Known Immunizations SOCIAL HISTORY Never Assessed REASON FOR VISIT appoinment for balance PLAN OF CARE VITAL SIGNS MEDICATIONS Unknown [...]
--- OUTSIDE RECORDS SUMMARY | 2018-01-11 17:07 | XMS REPORT ---
Author Author ROSALINA GRAHAM Organization [facility] Address [address] [place] [address] Care Team Providers Care Procurement Analyst Name Role Phone ROSALINA GRAHAM Unavailable PROBLEMS Type Condition ICD9-CM Code OZM27-II Code Onset Dates Condition Status SNOMED Code Problem Essential hypertension I10 Active 03230759 Problem Other chronic pain G89.29 Active 98473569 Problem Dorsalgia, unspecified M54.9 Active 210734943 Problem Allergic state, initial encounter T78.40XA Active 384638482 Problem Reactive depression F32.9 Active 67484252 Problem Muscle spasms of both lower extremities M62.838 Active 820631197 Problem Mild intermittent asthma without complication J45.20 Active 737528826 Problem PTSD (post-traumatic stress disorder) F43.10 Active 63347327 Problem Panic disorder F41.0 Active 713129724 Problem Severe episode of recurrent major depressive disorder, without psychotic features F33.2 Active 80917108 Problem Generalized anxiety disorder F41.1 Active 66390243 Problem Chronic obstructive pulmonary disease, unspecified COPD type J44.9 Active 83420657 Problem Falling R29.6 Active 280011124 ALLERGIES No Information ENCOUNTERS Encounter Location Date Diagnosis [facility] [id number], [place] [address]- 9552 Dec, [facility] [address], [place] [address]- 8975 Dec, [facility] [id number] [place] [address] 46574- 8320 Nov, [facility] [address], [place] [address]- 7331 Nov, [facility] [id number], [place] [address]- 1753 Nov, [place] [address], [place] [address]- 1868 Nov, [facility] [id number] [place] [address] 07167- 6968 Nov, [facility] [address], [place] [address]- 3735 Nov, [facility] [id number] [place] [address] 60970- 2163 Nov, [facility] [id number] [place] [address] 46873- 7833 Nov, [facility] [id number] [place] [address] 79921- 9587 Nov, [facility] [id number] [place] [address] 16369- 9815 Nov, [facility] [id number] [place] [address] 42607- 8880 Nov, Severe episode of recurrent major depressive disorder, without psychotic features F33.2 ; PTSD (post-traumatic stress disorder) F43.10 ; Panic disorder F41.0 and BMI 40.0-44.9, adult Z68.41 [facility] [address], [place] [address]- 8658 Nov, [facility] [id number] [place] [address] 42850- 2254 Nov, Essential hypertension I10 [facility] [address], [place] [address]- 7187 Nov, Severe episode of recurrent major depressive disorder, without psychotic features F33.2 [facility] [address] [place] [address] 89677- 8420 Nov, Acute pain of left knee M25.562 [facility] [address], [place] [address]- 9054 Nov, Severe episode of recurrent major depressive disorder, without psychotic features F33.2 ; PTSD (post-traumatic stress disorder) F43.10 ; Panic disorder F41.0 and BMI 40.0-44.9, adult Z68.41 [facility] [address] [place] [address] 61278- 4136 Oct, [facility] [address], [place] [address]- 3225 Oct, [facility] [id number] [place] [address] 33806- 7434 Oct, [facility] [id number] [place] [address] 84383- 8029 Oct, [facility] [id number] [place] [address] 93870- 0792 Oct, Dorsalgia, unspecified M54.9 [facility] [id number] [place] [address] 33123- 9522 Oct, Severe episode of recurrent major depressive disorder, without psychotic features F33.2 and Generalized anxiety disorder F41.1 [facility] [address], [place] [address]- 7666 Oct, [facility] [address], [place] [address]- 6982 Oct, [facility] [id number], [place] [address]- 6861 Oct, [facility] [id number], [place] [address]- 1726 Oct, [facility] [id number], [place] [address]- 3258 Oct, [facility] [id number], [place] [address]- 3925 Oct, [facility] [id number], [place] [address]- 2981 Oct, [facility] [id number] [place] [address] 28740- 3572 Oct, [facility] [id number] [place] [address] 73110- 0011 Sep, Dorsalgia, unspecified M54.9 [facility] [id number] [place] [address] 54440- 4896 Sep, [facility] [address] 40575- 9649 Sep, [facility] [id number] [place] [address] 60383- 6511 Sep, Falling R29.6 ; Essential hypertension I10 ; Chronic obstructive pulmonary disease, unspecified COPD type J44.9 and BMI 40.0-44.9, adult Z68.41 [facility] [id number] [place] [address] 21334- 9528 Sep, [facility] [id number] [place] [address] 33862- 2119 Sep, [facility] [id number] [place] [address] 87134- 2138 Sep, [facility] [id number] [place] [address] 02022- 3133 Sep, Mild intermittent asthma without complication J45.20 [facility] [id number] [place] [address] 20008- 3201 Sep, [facility] [id number] [place] [address] 41829- 9630 Sep, [facility] [id number] [place] [address] 33881- 2799 Sep, [facility] [id number] [place] [address] 60778- 6414 Sep, [facility] [id number] [place] [address] 51431- 8930 Sep, [facility] [address], [place] [address]- 2166 15 Sep, 2017 [facility] [id number] [place] [address] 71236- 4746 15 Sep, 2017 Essential hypertension I10 [facility] [address], [place] [address]- 7913 15 Sep, 2017 [facility] [id number] [place] [address] 57571- 6416 15 Sep, 2017 [facility] [id number] [place] [address] 04659- 3647 15 Sep, 2017 [facility] [id number] [place] [address] 35905- 7509 14 Sep, 2017 [facility] [address], [place] [address]- 1727 14 Sep, 2017 [facility] [id number] [place] [address] 00394- 4831 14 Sep, 2017 [facility] [address], [place] [address]- 3198 13 Sep, 2017 [facility] [id number] [place] [address] 36584- 7969 Sep, [facility] [address], [place] [address]- 2182 13 Sep, 2017 [facility] [address], [place] [address]- 3706 Sep, [facility] [address], [place] [address]- 8434 05 Sep, 2017 Mild intermittent asthma without complication J45.20 [facility] [address], [place] [address]- 7259 August, Essential hypertension I10 [facility] [address], [place] [address]- 8103 August, BMI 40.0-44.9, adult Z68.41 ; Dorsalgia, unspecified M54.9 ; Allergic state, initial encounter T78.40XA ; Mild intermittent asthma without complication J45.20 and 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 [facility] [id number] [place] [address] 19163- 2514 August, [facility] [id number] [place] [address] 64976- 3340 August, [facility] [address] 67886- 8860 August, [facility] [id number] [place] [address] 22580- 7279 August, Reactive depression F32.9 [facility] [id number] [place] [address] 49329- 8869 August, [facility] [address] 48579- 5749 August, [facility] [id number] [place] [address] 76392- 6300 August, [facility] [address] 82907- 8741 August, [facility] [id number] [place] [address] 14211- 1551 August, [facility] [id number] [place] [address] 39834- 4258 August, [facility] [id number] [place] [address]- [address] August, [facility] [address] [address] August, Muscle spasms of both lower extremities M62.838 ; Essential hypertension I10 and Reactive depression F32.9 [facility] [id number] [place] [address] August, [facility] [id number] [address] Jul, [facility] [id number] [address] Jul, [facility] [id number] [address] Jul, [facility] [id number] [place] [address] Jul, [facility] [id number] [place] [address] Jul, [facility] [id number] [address] Jul, [facility] [id number] [place] [address] Jul, [facility] [id number] [place] [address] Jul, [facility] [id number] [address] Jul, Essential hypertension I10 ; Other chronic pain G89.29 ; Dorsalgia, unspecified M54.9 ; Reactive depression F32.9 ; Mild intermittent asthma without complication J45.20 ; Allergic state, initial encounter T78.40XA and Muscle spasms of both lower extremities M62.838 IMMUNIZATIONS No Known Immunizations SOCIAL HISTORY Never Assessed REASON FOR VISIT Re:RE:New Refill Request PLAN OF CARE VITAL SIGNS [...]
--- OUTSIDE RECORDS SUMMARY | 2018-01-11 17:07 | XMS REPORT ---
Author Author ROSALINA GRAHAM Organization [facility] Address [address] [place] [address] Care Team Providers Care Patient Transport Officer Name Role Phone ROSALINA GRAHAM Unavailable PROBLEMS Type Condition ICD9-CM Code COB77-YE Code Onset Dates Condition Status SNOMED Code Problem Essential hypertension I10 Active 95081645 Problem Other chronic pain G89.29 Active 75961780 Problem Dorsalgia, unspecified M54.9 Active 983346757 Problem Allergic state, initial encounter T78.40XA Active 182685030 Problem Reactive depression F32.9 Active 14692749 Problem Muscle spasms of both lower extremities M62.838 Active 169858298 Problem Mild intermittent asthma without complication J45.20 Active 083710608 Problem PTSD (post-traumatic stress disorder) F43.10 Active 30511393 Problem Panic disorder F41.0 Active 565551173 Problem Severe episode of recurrent major depressive disorder, without psychotic features F33.2 Active 08352876 Problem Generalized anxiety disorder F41.1 Active 92857744 Problem Chronic obstructive pulmonary disease, unspecified COPD type J44.9 Active 68462920 Problem Falling R29.6 Active 615476883 ALLERGIES No Information ENCOUNTERS Encounter Location Date Diagnosis [facility] [id number], [place] [address] Dec, [facility] [address] [address] Dec, [facility] [address] [place] [address] 33073- 7137 Nov, [facility] [address], [place] [address] 2314 Nov, [facility] [id number], [place] [address] 3934 Nov, [place] [address], [place] [address] 6966 Nov, [facility] [address] [place] [address] 09031- 2464 Nov, [facility] [address], [place] [address]- 8696 Nov, [facility] [id number] [place] [address] 79022- 7932 Nov, [facility] [address] [place] [address] 24646- 8624 Nov, [facility] [id number] [place] [address] 48806- 5951 Nov, [facility] [id number] [place] [address] 81636- 9242 Nov, [facility] [id number] [place] [address] 70544- 6947 Nov, Severe episode of recurrent major depressive disorder, without psychotic features F33.2 ; PTSD (post-traumatic stress disorder) F43.10 ; Panic disorder F41.0 and BMI 40.0-44.9, adult Z68.41 [facility] [address], [place] [address] 4132 Nov, [facility] [address] [place] [address] 93762- 6338 Nov, Essential hypertension I10 [facility] [address], [place] [address] 5299 Nov, Severe episode of recurrent major depressive disorder, without psychotic features F33.2 [facility] [address] [place] [address] 70925- 6533 Nov, Acute pain of left knee M25.562 [facility] [address], [place] [address]- 8964 Nov, Severe episode of recurrent major depressive disorder, without psychotic features F33.2 ; PTSD (post-traumatic stress disorder) F43.10 ; Panic disorder F41.0 and BMI 40.0-44.9, adult Z68.41 [facility] [address] [place] [address] 79140- 9715 Oct, [facility] [address], [place] [address]- 6200 Oct, [facility] [id number] [place] [address] 35641- 0498 Oct, [facility] [id number] [place] [address] 35990- 2190 Oct, [facility] [id number] [place] [address] 39514- 0050 Oct, Dorsalgia, unspecified M54.9 [facility] [id number] [place] [address] 96301- 2015 Oct, Severe episode of recurrent major depressive disorder, without psychotic features F33.2 and Generalized anxiety disorder F41.1 [facility] [address], [place] [address]- 8401 Oct, [facility] [address], [place] [address]- 5597 Oct, [facility] [id number], [place] [address]- 4203 Oct, [facility] [id number], [place] [address]- 0241 Oct, [facility] [id number], [place] [address]- 6120 Oct, [facility] [id number], [place] [address]- 9387 Oct, [facility] [id number], [place] [address]- 9781 Oct, [facility] [id number] [place] [address] 75508- 5853 Oct, [facility] [id number] [place] [address] 26254- 2054 Sep, Dorsalgia, unspecified M54.9 [facility] [id number] [place] [address] 08954- 5400 Sep, [facility] [address] 35637- 1510 Sep, [facility] [id number] [place] [address] 79831- 5207 Sep, Falling R29.6 ; Essential hypertension I10 ; Chronic obstructive pulmonary disease, unspecified COPD type J44.9 and BMI 40.0-44.9, adult Z68.41 [facility] [id number] [place] [address] 00241- 7288 Sep, [facility] [id number] [place] [address] 35702- 9637 Sep, [facility] [id number] [place] [address] 08524- 2716 Sep, [facility] [id number] [place] [address] 17065- 1046 Sep, Mild intermittent asthma without complication J45.20 [facility] [id number] [place] [address] 65542- 2269 Sep, [facility] [id number] [place] [address] 82599- 1158 Sep, [facility] [id number] [place] [address] 68498- 4323 Sep, [facility] [id number] [place] [address] 39112- 1787 Sep, [facility] [id number] [place] [address] 78736- 6595 Sep, [facility] [address], [place] [address]- 1908 15 Sep, 2017 [facility] [address] [place] [address] 91744- 0562 15 Sep, 2017 Essential hypertension I10 [facility] [address], [place] [address]- 7814 15 Sep, 2017 [facility] [id number] [place] [address] 18490- 0472 15 Sep, 2017 [facility] [address] [place] [address] 81775- 0572 15 Sep, 2017 [facility] [id number] [place] [address] 39777- 1321 14 Sep, 2017 [facility] [address], [place] [address]- 7572 14 Sep, 2017 [facility] [address] [place] [address] 51722- 6667 14 Sep, 2017 [facility] [address], [place] [address]- 3450 13 Sep, 2017 [facility] [address] [place] [address] 63883- 4017 Sep, [facility] [address], [place] [address]- 8785 13 Sep, 2017 [facility] [address], [place] [address]- 9678 Sep, [facility] [address], [place] [address]- 6813 05 Sep, 2017 Mild intermittent asthma without complication J45.20 [facility] [address], [place] [address]- 6901 August, Essential hypertension I10 [facility] [address], [place] [address]- 7006 August, BMI 40.0-44.9, adult Z68.41 ; Dorsalgia, unspecified M54.9 ; Allergic state, initial encounter T78.40XA ; Mild intermittent asthma without complication J45.20 and 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 [facility] [id number] [place] [address] 15628- 2460 August, [facility] [id number] [place] [address] 84896- 7319 August, [facility] [address] 62608- 7131 August, [facility] [id number] [place] [address] 59837- 0331 August, Reactive depression F32.9 [facility] [id number] [place] [address] 84114- 0911 August, [facility] [address] 39373- 5798 August, [facility] [id number] [place] [address] 72227- 7889 August, [facility] [address] 07467- 7344 August, [facility] [id number] [place] [address] 89226- 7766 August, [facility] [id number] [place] [address] 28738- 6413 August, [facility] [id number] [place] [address] 95495- 1354 August, [facility] [address] 12911- 7263 August, Muscle spasms of both lower extremities M62.838 ; Essential hypertension I10 and Reactive depression F32.9 [facility] [id number] [place] [address] 29626- 7581 August, [facility] [id number], [place] [address]- 0898 Jul, [facility] [address], [place] [address]- 5911 Jul, [facility] [address], [place] [address]- 4754 Jul, [facility] [address], [place] [address]- 2669 Jul, [facility] [address], [place] [address]- 0184 Jul, [facility] [address], [place] [address]- 0608 Jul, [facility] [address], [place] [address]- 9911 Jul, [facility] [address], [place] [address]- 0025 Jul, [facility] [id number], [place] [address]- 0556 Jul, Essential hypertension I10 ; Other chronic [...]
--- OUTSIDE RECORDS SUMMARY | 2018-01-11 17:07 | XMS REPORT ---
Author Author ROSALINA GRAHAM Organization [facility] Address [address] [place] [address] Care Team Providers Care Ceramic Design Engineer Name Role Phone ROSALINA GRAHAM Unavailable PROBLEMS Type Condition ICD9-CM Code GKA04-FA Code Onset Dates Condition Status SNOMED Code Problem Essential hypertension I10 Active 97248821 Problem Other chronic pain G89.29 Active 58532131 Problem Dorsalgia, unspecified M54.9 Active 263778015 Problem Allergic state, initial encounter T78.40XA Active 429224364 Problem Reactive depression F32.9 Active 53843622 Problem Muscle spasms of both lower extremities M62.838 Active 568029904 Problem Mild intermittent asthma without complication J45.20 Active 791378387 Problem PTSD (post-traumatic stress disorder) F43.10 Active 25213168 Problem Panic disorder F41.0 Active 747131253 Problem Severe episode of recurrent major depressive disorder, without psychotic features F33.2 Active 11763094 Problem Generalized anxiety disorder F41.1 Active 50372012 Problem Chronic obstructive pulmonary disease, unspecified COPD type J44.9 Active 26906379 Problem Falling R29.6 Active 225214915 ALLERGIES No Information ENCOUNTERS Encounter Location Date Diagnosis [facility] [id number], [place] [address]- 4748 Dec, [facility] [address], [place] [address]- 7401 Dec, [facility] [id number] [place] [address] 82177- 2682 Nov, [facility] [address], [place] [address]- 1881 Nov, [facility] [id number], [place] [address]- 7996 Nov, [place] [address], [place] [address]- 4104 Nov, [facility] [id number] [place] [address] 34778- 4205 Nov, [facility] [address], [place] [address]- 0365 Nov, [facility] [id number] [place] [address] 46860- 6332 Nov, [facility] [id number] [place] [address] 64282- 3334 Nov, [facility] [id number] [place] [address] 19659- 5788 Nov, [facility] [id number] [place] [address] 08468- 2438 Nov, [facility] [id number] [place] [address] 51785- 3321 Nov, Severe episode of recurrent major depressive disorder, without psychotic features F33.2 ; PTSD (post-traumatic stress disorder) F43.10 ; Panic disorder F41.0 and BMI 40.0-44.9, adult Z68.41 [facility] [address], [place] [address]- 2231 Nov, [facility] [id number] [place] [address] 91662- 6724 Nov, Essential hypertension I10 [facility] [address], [place] [address]- 4506 Nov, Severe episode of recurrent major depressive disorder, without psychotic features F33.2 [facility] [address] [place] [address] 76983- 9075 Nov, Acute pain of left knee M25.562 [facility] [address], [place] [address]- 5656 Nov, Severe episode of recurrent major depressive disorder, without psychotic features F33.2 ; PTSD (post-traumatic stress disorder) F43.10 ; Panic disorder F41.0 and BMI 40.0-44.9, adult Z68.41 [facility] [id number] [place] [address] 95241- 1570 Oct, [facility] [address], [place] [address]- 2537 Oct, [facility] [id number] [place] [address] 69604- 2726 Oct, [facility] [id number] [place] [address] 22881- 2900 Oct, [facility] [id number] [place] [address] 41705- 3931 Oct, Dorsalgia, unspecified M54.9 [facility] [id number] [place] [address] 38141- 3920 Oct, Severe episode of recurrent major depressive disorder, without psychotic features F33.2 and Generalized anxiety disorder F41.1 [facility] [address], [place] [address]- 5313 Oct, [facility] [address], [place] [address]- 4561 Oct, [facility] [id number], [place] [address]- 8492 Oct, [facility] [id number], [place] [address]- 1998 Oct, [facility] [id number], [place] [address]- 1898 Oct, [facility] [id number], [place] [address]- 9695 Oct, [facility] [id number], [place] [address]- 4110 Oct, [facility] [id number] [place] [address] 29957- 3528 Oct, [facility] [id number] [place] [address] 25822- 3190 Sep, Dorsalgia, unspecified M54.9 [facility] [id number] [place] [address] 39317- 2604 Sep, [facility] [address] 85303- 4195 Sep, [facility] [id number] [place] [address] 06633- 3222 Sep, Falling R29.6 ; Essential hypertension I10 ; Chronic obstructive pulmonary disease, unspecified COPD type J44.9 and BMI 40.0-44.9, adult Z68.41 [facility] [id number] [place] [address] 78360- 1376 Sep, [facility] [id number] [place] [address] 05084- 8743 Sep, [facility] [id number] [place] [address] 84841- 4832 Sep, [facility] [id number] [place] [address] 93735- 9548 Sep, Mild intermittent asthma without complication J45.20 [facility] [id number] [place] [address] 29999- 2693 Sep, [facility] [id number] [place] [address] 28001- 0192 Sep, [facility] [id number] [place] [address] 75574- 3042 Sep, [facility] [id number] [place] [address] 42517- 0528 Sep, [facility] [id number] [place] [address] 97329- 3561 Sep, [facility] [address], [place] [address]- 0554 15 Sep, 2017 [facility] [id number] [place] [address] 59635- 9195 15 Sep, 2017 Essential hypertension I10 [facility] [address], [place] [address]- 9432 15 Sep, 2017 [facility] [id number] [place] [address] 27260- 7716 15 Sep, 2017 [facility] [id number] [place] [address] 93195- 8108 15 Sep, 2017 [facility] [id number] [place] [address] 25686- 2005 14 Sep, 2017 [facility] [address], [place] [address]- 2735 14 Sep, 2017 [facility] [address] [place] [address] 80478- 8253 14 Sep, 2017 [facility] [address], [place] [address]- 6669 13 Sep, 2017 [facility] [address] [place] [address] 37820- 9202 Sep, [facility] [address], [place] [address]- 1270 13 Sep, 2017 [facility] [address], [place] [address]- 8347 Sep, [facility] [address], [place] [address]- 6953 05 Sep, 2017 Mild intermittent asthma without complication J45.20 [facility] [address], [place] [address]- 0275 August, Essential hypertension I10 [facility] [address], [place] [address]- 9724 August, BMI 40.0-44.9, adult Z68.41 ; Dorsalgia, unspecified M54.9 ; Allergic state, initial encounter T78.40XA ; Mild intermittent asthma without complication J45.20 and 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 [facility] [id number] [place] [address] 59407- 9668 August, [facility] [id number] [place] [address] 76395- 7812 August, [facility] [address] 29982- 2550 August, [facility] [id number] [place] [address] 18685- 8926 August, Reactive depression F32.9 [facility] [id number] [place] [address] 49734- 9383 August, [facility] [address] 32620- 7804 August, [facility] [id number] [place] [address] 12445- 9472 August, [facility] [address] 81839- 7474 August, [facility] [id number] [place] [address] 90476- 1561 August, [facility] [id number] [place] [address] 33821- 7710 August, [facility] [id number] [place] [address] 28246- 3997 August, [facility] [address] 93130- 4263 August, Muscle spasms of both lower extremities M62.838 ; Essential hypertension I10 and Reactive depression F32.9 [facility] [id number] [place] [address] 89476- 2634 August, [facility] [id number], [place] [address]- 7966 Jul, [facility] [address], [place] [address]- 4083 Jul, [facility] [address], [place] [address]- 8282 Jul, [facility] [address], [place] [address]- 3068 Jul, [facility] [address], [place] [address]- 3606 Jul, [facility] [address], [place] [address]- 7869 Jul, [facility] [address], [place] [address]- 4032 Jul, [facility] [address], [place] [address]- 2593 Jul, [facility] [id number], [place] [address]- 4740 Jul, Essential hypertension I10 ; Other chronic pain G89.29 ; Dorsalgia, unspecified M54.9 ; Reactive depression F32.9 ; Mild intermittent asthma without complication J45.20 ; Allergic state, initial encounter T78.40XA and Muscle spasms of both lower extremities M62.838 IMMUNIZATIONS No Known Immunizations SOCIAL HISTORY Never Assessed REASON FOR VISIT Re:RE:Re:RE:Re:RE:evaluation of meds PLAN OF CARE VITAL SIGNS MEDICATIONS Unknown [...]
--- OUTSIDE RECORDS SUMMARY | 2018-01-11 17:07 | XMS REPORT ---
Author Author ROSALINA GRAHAM Organization [facility] Address [address] [place] [address] Care Team Providers Care Ordnance Officer Name Role Phone ROSALINA GRAHAM Unavailable PROBLEMS Type Condition ICD9-CM Code VSE02-RH Code Onset Dates Condition Status SNOMED Code Problem Essential hypertension I10 Active 34450187 Problem Other chronic pain G89.29 Active 47246113 Problem Dorsalgia, unspecified M54.9 Active 948409706 Problem Allergic state, initial encounter T78.40XA Active 876555992 Problem Reactive depression F32.9 Active 89893794 Problem Muscle spasms of both lower extremities M62.838 Active 905827390 Problem Mild intermittent asthma without complication J45.20 Active 843696405 Problem PTSD (post-traumatic stress disorder) F43.10 Active 99433948 Problem Panic disorder F41.0 Active 728960333 Problem Severe episode of recurrent major depressive disorder, without psychotic features F33.2 Active 43164203 Problem Generalized anxiety disorder F41.1 Active 94732059 Problem Chronic obstructive pulmonary disease, unspecified COPD type J44.9 Active 95927404 Problem Falling R29.6 Active 544010376 ALLERGIES No Information ENCOUNTERS Encounter Location Date Diagnosis [facility] [id number] [address] Dec, [facility] [id number] [address] 0[address] Dec, [facility] [id number] [place] [address] 54434- 6984 Nov, [facility] [id number] [address] 2596 Nov, [facility] [id number], [place] [address] 7818 Nov, [place] [id number] [address] 3414 Nov, [facility] [id number] [place] [address] 60349- 3933 Nov, [facility] [id number] [address]- 6068 Nov, [facility] [id number] [place] [address] 77504- 5122 Nov, [facility] [id number] [place] [address] 89940- 3426 Nov, [facility] [id number] [place] [address] 83890- 9429 Nov, [facility] [id number] [place] [address] 92540- 0908 Nov, [facility] [id number] [place] [address] 63068- 4208 Nov, Severe episode of recurrent major depressive disorder, without psychotic features F33.2 ; PTSD (post-traumatic stress disorder) F43.10 ; Panic disorder F41.0 and BMI 40.0-44.9, adult Z68.41 [facility] [address] [address] Nov, [facility] [id number] [place] [address] 75378- 5263 Nov, Essential hypertension I10 [facility] [id number] [address]- 4598 Nov, Severe episode of recurrent major depressive disorder, without psychotic features F33.2 [facility] [id number] [place] [address] 43753- 6391 Nov, Acute pain of left knee M25.562 [facility] [id number] [address]- 7093 Nov, Severe episode of recurrent major depressive disorder, without psychotic features F33.2 ; PTSD (post-traumatic stress disorder) F43.10 ; Panic disorder F41.0 and BMI 40.0-44.9, adult Z68.41 [facility] [id number] [place] [address] 59860- 6234 Oct, [facility] [address], [place] [address] 9120 Oct, [facility] [id number] [place] [address] 22928- 8834 Oct, [facility] [id number] [place] [address] 95464- 9599 Oct, [facility] [id number] [place] [address] 60853- 3616 Oct, Dorsalgia, unspecified M54.9 [facility] [id number] [place] [address] 03317- 4391 Oct, Severe episode of recurrent major depressive disorder, without psychotic features F33.2 and Generalized anxiety disorder F41.1 [facility] [id number] [address]- 0951 Oct, [facility] [id number] [address]- 7312 Oct, [facility] [id number], [place] [address]- 5298 Oct, [facility] [id number], [place] [address]- 8527 Oct, [facility] [id number], [place] [address]- 5546 Oct, [facility] [id number], [place] [address]- 1014 Oct, [facility] [id number], [place] [address]- 7701 Oct, [facility] [id number] [place] [address] 33615- 7065 Oct, [facility] [id number] [place] [address] 57974- 7092 Sep, Dorsalgia, unspecified M54.9 [facility] [id number] [place] [address] 84930- 7384 Sep, [facility] [address] [address]- 6757 Sep, [facility] [id number] [place] [address] 01019- 7734 Sep, Falling R29.6 ; Essential hypertension I10 ; Chronic obstructive pulmonary disease, unspecified COPD type J44.9 and BMI 40.0-44.9, adult Z68.41 [facility] [id number] [place] [address] 35455- 4240 Sep, [facility] [id number] [place] [address] 64101- 1120 Sep, [facility] [id number] [place] [address] 29483- 1186 Sep, [facility] [id number] [place] [address] 97129- 0744 Sep, Mild intermittent asthma without complication J45.20 [facility] [id number] [place] [address] 56718- 6920 Sep, [facility] [id number] [place] [address] 22222- 6958 Sep, [facility] [id number] [place] [address] 64526- 0845 Sep, [facility] [id number] [place] [address] 95911- 7706 Sep, [facility] [id number] [place] [address] 98237- 8707 Sep, [facility] [address], [place] [address]- 0992 15 Sep, 2017 [facility] [id number] [place] [address] 53888- 7371 15 Sep, 2017 Essential hypertension I10 [facility] [address] [address]- 2722 15 Sep, 2017 [facility] [id number] [place] [address] 50155- 7507 15 Sep, 2017 [facility] [id number] [place] [address] 65556- 9462 15 Sep, 2017 [facility] [id number] [place] [address] 88808- 7368 14 Sep, 2017 [facility] [id number], [place] [address]- 6709 14 Sep, 2017 [facility] [id number] [place] [address] 63523- 9450 14 Sep, 2017 [facility] [address] [address]- 7358 13 Sep, 2017 [facility] [id number] [place] [address] 52360- 4484 Sep, [facility] [id number] [address]- 8809 13 Sep, 2017 [facility] [id number] [address]- 2221 Sep, [facility] [address] [address]- 0804 05 Sep, 2017 Mild intermittent asthma without complication J45.20 [facility] [id number] [address]- 6513 August, Essential hypertension I10 [facility] [id number] [address]- 1135 August, BMI 40.0-44.9, adult Z68.41 ; Dorsalgia, unspecified M54.9 ; Allergic state, initial encounter T78.40XA ; Mild intermittent asthma without complication J45.20 and 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 [facility] [id number] [place] [address] 38740- 1977 August, [facility] [id number] [place] [address] 13083- 5061 August, [facility] [address] 89670- 7111 August, [facility] [id number] [place] [address] 46938- 7339 August, Reactive depression F32.9 [facility] [id number] [place] [address] 36918- 4791 August, [facility] [address] 14155- 5992 August, [facility] [id number] [place] [address] 97722- 9154 August, [facility] [address] 57283- 6386 August, [facility] [id number] [place] [address] 29968- 1627 August, [facility] [id number] [place] [address] 83149- 3871 August, [facility] [id number] [place] [address] 83045- 1190 August, [facility] [address] 45697- 0956 August, Muscle spasms of both lower extremities M62.838 ; Essential hypertension I10 and Reactive depression F32.9 [facility] [id number] [place] [address] 53228- 7865 August, [facility] [id number] [address]- 8956 Jul, [facility] [id number] [address]- 3906 Jul, [facility] [address] [address]- 9137 Jul, [facility] [id number] [address]- 5987 Jul, [facility] [address] [address]- 2692 Jul, [facility] [id number] [address]- 6920 Jul, [facility] [id number] [address]- 3923 Jul, [facility] [id number] [address]- 8294 Jul, [facility] [id number] [address]- 9029 Jul, Essential hypertension I10 ; Other chronic pain G89.29 ; Dorsalgia, unspecified M54.9 ; Reactive depression F32.9 ; Mild intermittent asthma without complication J45.20 ; Allergic state, initial encounter T78.40XA and Muscle spasms of both lower extremities M62.838 IMMUNIZATIONS No Known Immunizations SOCIAL HISTORY Never Assessed REASON FOR VISIT Re:RE:Re:RE:evaluation of meds PLAN OF CARE VITAL SIGNS [...]
--- OUTSIDE RECORDS SUMMARY | 2018-01-11 17:08 | XMS REPORT ---
Author Author ROSALINA GRAHAM Organization [facility] Address [address] [place] [address] Care Team Providers Care Poultry Inspector Name Role Phone ROSALINA GRAHAM Unavailable PROBLEMS Type Condition ICD9-CM Code QRU61-GX Code Onset Dates Condition Status SNOMED Code Problem Essential hypertension I10 Active 33448237 Problem Other chronic pain G89.29 Active 47511681 Problem Dorsalgia, unspecified M54.9 Active 201672180 Problem Allergic state, initial encounter T78.40XA Active 490221671 Problem Reactive depression F32.9 Active 08125009 Problem Muscle spasms of both lower extremities M62.838 Active 883449155 Problem Mild intermittent asthma without complication J45.20 Active 109426295 Problem PTSD (post-traumatic stress disorder) F43.10 Active 16373134 Problem Panic disorder F41.0 Active 088675193 Problem Severe episode of recurrent major depressive disorder, without psychotic features F33.2 Active 93036581 Problem Generalized anxiety disorder F41.1 Active 05772274 Problem Chronic obstructive pulmonary disease, unspecified COPD type J44.9 Active 99643987 Problem Falling R29.6 Active 829396799 ALLERGIES No Information ENCOUNTERS Encounter Location Date Diagnosis [facility] [id number], [place] [address]- 2661 Dec, [facility] [address], [place] [address]- 3822 Dec, [facility] [address] [place] [address] 87554- 3806 Nov, [facility] [address], [place] [address]- 8258 Nov, [facility] [id number], [place] [address]- 9202 Nov, [place] [address], [place] [address]- 0521 Nov, [facility] [address] [place] [address] 89362- 1819 Nov, [facility] [address], [place] [address]- 4406 Nov, [facility] [id number] [place] [address] 70485- 8867 Nov, [facility] [id number] [place] [address] 88602- 7694 Nov, [facility] [id number] [place] [address] 84857- 7502 Nov, [facility] [id number] [place] [address] 94253- 7341 Nov, [facility] [id number] [place] [address] 70120- 7920 Nov, Severe episode of recurrent major depressive disorder, without psychotic features F33.2 ; PTSD (post-traumatic stress disorder) F43.10 ; Panic disorder F41.0 and BMI 40.0-44.9, adult Z68.41 [facility] [address], [place] [address]- 1606 Nov, [facility] [address] [place] [address] 84721- 2754 Nov, Essential hypertension I10 [facility] [address], [place] [address]- 6875 Nov, Severe episode of recurrent major depressive disorder, without psychotic features F33.2 [facility] [address] [place] [address] 10285- 4319 Nov, Acute pain of left knee M25.562 [facility] [address], [place] [address]- 2607 Nov, Severe episode of recurrent major depressive disorder, without psychotic features F33.2 ; PTSD (post-traumatic stress disorder) F43.10 ; Panic disorder F41.0 and BMI 40.0-44.9, adult Z68.41 [facility] [address] [place] [address] 48904- 6635 Oct, [facility] [address], [place] [address]- 5663 Oct, [facility] [id number] [place] [address] 61017- 7183 Oct, [facility] [id number] [place] [address] 29692- 2456 Oct, [facility] [id number] [place] [address] 28281- 6948 Oct, Dorsalgia, unspecified M54.9 [facility] [id number] [place] [address] 06046- 3119 Oct, Severe episode of recurrent major depressive disorder, without psychotic features F33.2 and Generalized anxiety disorder F41.1 [facility] [address], [place] [address]- 5561 Oct, [facility] [address], [place] [address]- 0546 Oct, [facility] [id number], [place] [address]- 6191 Oct, [facility] [id number], [place] [address]- 3343 Oct, [facility] [id number], [place] [address]- 9526 Oct, [facility] [id number], [place] [address]- 0260 Oct, [facility] [id number], [place] [address]- 4093 Oct, [facility] [id number] [place] [address] 50142- 8381 Oct, [facility] [id number] [place] [address] 48157- 5320 Sep, Dorsalgia, unspecified M54.9 [facility] [id number] [place] [address] 63463- 0364 Sep, [facility] [address] 39070- 3713 Sep, [facility] [id number] [place] [address] 40931- 1970 Sep, Falling R29.6 ; Essential hypertension I10 ; Chronic obstructive pulmonary disease, unspecified COPD type J44.9 and BMI 40.0-44.9, adult Z68.41 [facility] [id number] [place] [address] 52492- 5283 Sep, [facility] [id number] [place] [address] 66603- 2656 Sep, [facility] [id number] [place] [address] 19501- 2310 Sep, [facility] [id number] [place] [address] 15584- 3184 Sep, Mild intermittent asthma without complication J45.20 [facility] [id number] [place] [address] 13101- 2599 Sep, [facility] [id number] [place] [address] 34642- 5869 Sep, [facility] [id number] [place] [address] 16240- 7153 Sep, [facility] [id number] [place] [address] 18008- 4850 Sep, [facility] [id number] [place] [address] 42986- 0806 Sep, [facility] [address], [place] [address]- 8117 15 Sep, 2017 [facility] [address] [place] [address] 78164- 9347 15 Sep, 2017 Essential hypertension I10 [facility] [address], [place] [address]- 6367 15 Sep, 2017 [facility] [id number] [place] [address] 64849- 7451 15 Sep, 2017 [facility] [address] [place] [address] 61333- 8288 15 Sep, 2017 [facility] [id number] [place] [address] 81055- 5349 14 Sep, 2017 [facility] [address], [place] [address]- 3438 14 Sep, 2017 [facility] [address] [place] [address] 24633- 7968 14 Sep, 2017 [facility] [address], [place] [address]- 8146 13 Sep, 2017 [facility] [address] [place] [address] 82659- 3823 Sep, [facility] [address], [place] [address]- 2420 13 Sep, 2017 [facility] [address], [place] [address]- 1461 Sep, [facility] [address], [place] [address]- 9940 05 Sep, 2017 Mild intermittent asthma without complication J45.20 [facility] [address], [place] [address]- 8758 August, Essential hypertension I10 [facility] [address], [place] [address]- 8877 August, BMI 40.0-44.9, adult Z68.41 ; Dorsalgia, unspecified M54.9 ; Allergic state, initial encounter T78.40XA ; Mild intermittent asthma without complication J45.20 and 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 [facility] [id number] [place] [address] 38830- 9463 August, [facility] [id number] [place] [address] 12381- 5719 August, [facility] [address] 55771- 2549 August, [facility] [id number] [place] [address] 07174- 2897 August, Reactive depression F32.9 [facility] [id number] [place] [address] 64526- 4746 August, [facility] [address] 72685- 2455 August, [facility] [id number] [place] [address] 37442- 0373 August, [facility] [address] 69101- 0560 August, [facility] [id number] [place] [address] 49946- 3829 August, [facility] [id number] [place] [address] 28896- 3416 August, [facility] [id number] [place] [address] 87542- 3619 August, [facility] [address] 40731- 5556 August, Muscle spasms of both lower extremities M62.838 ; Essential hypertension I10 and Reactive depression F32.9 [facility] [id number] [place] [address] 09611- 6342 August, [facility] [id number], [place] [address]- 5869 Jul, [facility] [address], [place] [address]- 9561 Jul, [facility] [address], [place] [address]- 6632 Jul, [facility] [address], [place] [address]- 7192 Jul, [facility] [address], [place] [address]- 5916 Jul, [facility] [address], [place] [address]- 6548 Jul, [facility] [address], [place] [address]- 1012 Jul, [facility] [address], [place] [address]- 6032 Jul, [facility] [id number] [address]- 7397 Jul, Essential hypertension I10 ; Other chronic [...]
--- OUTSIDE RECORDS SUMMARY | 2018-01-11 17:08 | XMS REPORT ---
Author Author ROSALINA GRAHAM Organization [facility] Address [address] [place] [address] Care Team Providers Care Computer Technician Name Role Phone ROSALINA GRAHAM Unavailable PROBLEMS Type Condition ICD9-CM Code HSI71-KC Code Onset Dates Condition Status SNOMED Code Problem Essential hypertension I10 Active 81269941 Problem Other chronic pain G89.29 Active 82955049 Problem Dorsalgia, unspecified M54.9 Active 944150531 Problem Allergic state, initial encounter T78.40XA Active 191036335 Problem Reactive depression F32.9 Active 62181065 Problem Muscle spasms of both lower extremities M62.838 Active 649739555 Problem Mild intermittent asthma without complication J45.20 Active 122434991 Problem PTSD (post-traumatic stress disorder) F43.10 Active 03645762 Problem Panic disorder F41.0 Active 294573492 Problem Severe episode of recurrent major depressive disorder, without psychotic features F33.2 Active 68168270 Problem Generalized anxiety disorder F41.1 Active 84194516 Problem Chronic obstructive pulmonary disease, unspecified COPD type J44.9 Active 26012135 Problem Falling R29.6 Active 023320391 ALLERGIES No Information ENCOUNTERS Encounter Location Date Diagnosis [facility] [id number], [place] [address] Dec, [facility] [address], [place] [address] 139[address] Dec, [facility] [address] [place] [address] 58706- 7466 Nov, [facility] [address], [place] [address] Nov, [facility] [id number], [place] [address] 5146 Nov, [place] [address], [place] [address] 2[address] Nov, [facility] [address] [place] [address] 03144- 4705 Nov, [facility] [address], [place] [address] 2643 Nov, [facility] [id number] [place] [address] 22782- 9902 Nov, [facility] [address] [place] [address] 76508- 5154 Nov, [facility] [id number] [place] [address] 42181- 1950 Nov, [facility] [id number] [place] [address] 92124- 2066 Nov, [facility] [id number] [place] [address] 64360- 8007 Nov, Severe episode of recurrent major depressive disorder, without psychotic features F33.2 ; PTSD (post-traumatic stress disorder) F43.10 ; Panic disorder F41.0 and BMI 40.0-44.9, adult Z68.41 [facility] [address], [place] [address] 4[address] Nov, [facility] [address] [place] [address] 29758- 7745 Nov, Essential hypertension I10 [facility] [address], [place] [address]- 1243 Nov, Severe episode of recurrent major depressive disorder, without psychotic features F33.2 [facility] [address] [place] [address] 07894- 9472 Nov, Acute pain of left knee M25.562 [facility] [address], [place] [address]- 9316 Nov, Severe episode of recurrent major depressive disorder, without psychotic features F33.2 ; PTSD (post-traumatic stress disorder) F43.10 ; Panic disorder F41.0 and BMI 40.0-44.9, adult Z68.41 [facility] [address] [place] [address] 21081- 6739 Oct, [facility] [address], [place] [address]- 1245 Oct, [facility] [id number] [place] [address] 31010- 2684 Oct, [facility] [id number] [place] [address] 62829- 5049 Oct, [facility] [id number] [place] [address] 30530- 8071 Oct, Dorsalgia, unspecified M54.9 [facility] [id number] [place] [address] 39674- 9381 Oct, Severe episode of recurrent major depressive disorder, without psychotic features F33.2 and Generalized anxiety disorder F41.1 [facility] [address], [place] [address] 8918 Oct, [facility] [address], [place] [address]- 1579 Oct, [facility] [id number], [place] [address]- 1813 Oct, [facility] [id number], [place] [address]- 3092 Oct, [facility] [id number], [place] [address]- 8840 Oct, [facility] [id number], [place] [address]- 3664 Oct, [facility] [id number], [place] [address]- 6631 Oct, [facility] [id number] [place] [address] 41672- 9815 Oct, [facility] [id number] [place] [address] 05484- 0711 Sep, Dorsalgia, unspecified M54.9 [facility] [id number] [place] [address] 88259- 7005 Sep, [facility] [address] 68630- 3230 Sep, [facility] [id number] [place] [address] 91223- 8543 Sep, Falling R29.6 ; Essential hypertension I10 ; Chronic obstructive pulmonary disease, unspecified COPD type J44.9 and BMI 40.0-44.9, adult Z68.41 [facility] [id number] [place] [address] 27042- 7367 Sep, [facility] [id number] [place] [address] 54465- 4345 Sep, [facility] [id number] [place] [address] 91330- 5233 Sep, [facility] [id number] [place] [address] 46362- 0624 Sep, Mild intermittent asthma without complication J45.20 [facility] [id number] [place] [address] 29398- 4262 Sep, [facility] [id number] [place] [address] 35200- 6490 Sep, [facility] [id number] [place] [address] 25827- 9036 Sep, [facility] [id number] [place] [address] 38767- 8535 Sep, [facility] [id number] [place] [address] 76476- 3293 Sep, [facility] [address], [place] [address]- 3349 15 Sep, 2017 [facility] [address] [place] [address] 64152- 4225 15 Sep, 2017 Essential hypertension I10 [facility] [address], [place] [address]- 7171 15 Sep, 2017 [facility] [id number] [place] [address] 28229- 7093 15 Sep, 2017 [facility] [address] [place] [address] 48832- 1781 15 Sep, 2017 [facility] [id number] [place] [address] 92949- 9507 14 Sep, 2017 [facility] [address], [place] [address]- 0281 14 Sep, 2017 [facility] [address] [place] [address] 03757- 7050 14 Sep, 2017 [facility] [address], [place] [address]- 0114 13 Sep, 2017 [facility] [address] [place] [address] 38697- 0483 Sep, [facility] [address], [place] [address]- 3105 13 Sep, 2017 [facility] [address], [place] [address]- 5626 Sep, [facility] [address], [place] [address]- 8474 05 Sep, 2017 Mild intermittent asthma without complication J45.20 [facility] [address], [place] [address]- 4756 August, Essential hypertension I10 [facility] [address], [place] [address]- 8014 August, BMI 40.0-44.9, adult Z68.41 ; Dorsalgia, unspecified M54.9 ; Allergic state, initial encounter T78.40XA ; Mild intermittent asthma without complication J45.20 and 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 [facility] [id number] [place] [address] 84338- 6747 August, [facility] [id number] [place] [address] 02317- 7258 August, [facility] [address] 72128- 3378 August, [facility] [id number] [place] [address] 62351- 9912 August, Reactive depression F32.9 [facility] [id number] [place] [address] 59016- 9187 August, [facility] [address] 24909- 2004 August, [facility] [id number] [place] [address] 39542- 5463 August, [facility] [address] 56236- 9958 August, [facility] [id number] [place] [address] 81927- 4043 August, [facility] [id number] [place] [address] 45264- 5224 August, [facility] [id number] [place] [address] 24672- 6748 August, [facility] [address] 40754- 1148 August, Muscle spasms of both lower extremities M62.838 ; Essential hypertension I10 and Reactive depression F32.9 [facility] [id number] [place] [address] 33634- 9933 August, [facility] [id number], [place] [address]- 5075 Jul, [facility] [address], [place] [address]- 2418 Jul, [facility] [address], [place] [address]- 9470 Jul, [facility] [address], [place] [address]- 5240 Jul, [facility] [address], [place] [address]- 9481 Jul, [facility] [address], [place] [address]- 2683 Jul, [facility] [address], [place] [address]- 8348 Jul, [facility] [address], [place] [address]- 6153 Jul, [facility] [id number], [place] [address]- 3567 Jul, Essential hypertension I10 ; Other chronic pain G89.29 ; Dorsalgia, unspecified M54.9 ; Reactive depression F32.9 ; Mild intermittent asthma without complication J45.20 ; Allergic state, initial encounter T78.40XA and Muscle spasms of both lower extremities M62.838 IMMUNIZATIONS No Known Immunizations SOCIAL HISTORY Never Assessed REASON FOR VISIT New Refill Request PLAN OF CARE VITAL SIGNS MEDICATIONS Medication Instructions Dosage Frequency Start Date End Date Duration Status Lovastatin 40 MG Orally Once a day [...]
--- OUTSIDE RECORDS SUMMARY | 2018-01-11 17:08 | XMS REPORT ---
Author Author ROSALINA GRAHAM Organization [facility] Address [address] [place] [address] Care Team Providers Care Dietitian Therapeutic Name Role Phone ROSALINA GRAHAM Unavailable PROBLEMS Type Condition ICD9-CM Code JAO62-LU Code Onset Dates Condition Status SNOMED Code Problem Essential hypertension I10 Active 09533909 Problem Other chronic pain G89.29 Active 32222649 Problem Dorsalgia, unspecified M54.9 Active 901813498 Problem Allergic state, initial encounter T78.40XA Active 856165845 Problem Reactive depression F32.9 Active 04517871 Problem Muscle spasms of both lower extremities M62.838 Active 328448142 Problem Mild intermittent asthma without complication J45.20 Active 730416652 Problem PTSD (post-traumatic stress disorder) F43.10 Active 92917916 Problem Panic disorder F41.0 Active 831026200 Problem Severe episode of recurrent major depressive disorder, without psychotic features F33.2 Active 93507967 Problem Generalized anxiety disorder F41.1 Active 90901536 Problem Chronic obstructive pulmonary disease, unspecified COPD type J44.9 Active 55857136 Problem Falling R29.6 Active 797153968 ALLERGIES No Information ENCOUNTERS Encounter Location Date Diagnosis [facility] [id number], [place] [address]- 7127 Dec, [facility] [address], [place] [address]- 7531 Dec, [facility] [address] [place] [address] 72807- 9311 Nov, [facility] [address], [place] [address]- 3386 Nov, [facility] [id number], [place] [address]- 5650 Nov, [place] [address], [place] [address]- 8496 Nov, [facility] [address] [place] [address] 62899- 4770 Nov, [facility] [address], [place] [address]- 5288 Nov, [facility] [id number] [place] [address] 46017- 9849 Nov, [facility] [address] [place] [address] 16559- 7315 Nov, [facility] [id number] [place] [address] 08323- 8544 Nov, [facility] [id number] [place] [address] 66082- 7343 Nov, [facility] [id number] [place] [address] 16295- 4120 Nov, Severe episode of recurrent major depressive disorder, without psychotic features F33.2 ; PTSD (post-traumatic stress disorder) F43.10 ; Panic disorder F41.0 and BMI 40.0-44.9, adult Z68.41 [facility] [address], [place] [address]- 9095 Nov, [facility] [address] [place] [address] 40174- 3193 Nov, Essential hypertension I10 [facility] [address], [place] [address]- 3152 Nov, Severe episode of recurrent major depressive disorder, without psychotic features F33.2 [facility] [address] [place] [address] 97552- 7921 Nov, Acute pain of left knee M25.562 [facility] [address], [place] [address]- 9414 Nov, Severe episode of recurrent major depressive disorder, without psychotic features F33.2 ; PTSD (post-traumatic stress disorder) F43.10 ; Panic disorder F41.0 and BMI 40.0-44.9, adult Z68.41 [facility] [address] [place] [address] 28628- 2802 Oct, [facility] [address], [place] [address]- 2892 Oct, [facility] [id number] [place] [address] 28129- 2373 Oct, [facility] [id number] [place] [address] 63509- 0612 Oct, [facility] [id number] [place] [address] 14634- 8300 Oct, Dorsalgia, unspecified M54.9 [facility] [id number] [place] [address] 66681- 5479 Oct, Severe episode of recurrent major depressive disorder, without psychotic features F33.2 and Generalized anxiety disorder F41.1 [facility] [address], [place] [address]- 7424 Oct, [facility] [address], [place] [address]- 9724 Oct, [facility] [id number], [place] [address]- 8099 Oct, [facility] [id number], [place] [address]- 1014 Oct, [facility] [id number], [place] [address]- 1940 Oct, [facility] [id number], [place] [address]- 0282 Oct, [facility] [id number], [place] [address]- 6921 Oct, [facility] [id number] [place] [address] 99290- 5109 Oct, [facility] [id number] [place] [address] 43687- 9381 Sep, Dorsalgia, unspecified M54.9 [facility] [id number] [place] [address] 05392- 3785 Sep, [facility] [address] 04102- 4031 Sep, [facility] [id number] [place] [address] 80345- 5336 Sep, Falling R29.6 ; Essential hypertension I10 ; Chronic obstructive pulmonary disease, unspecified COPD type J44.9 and BMI 40.0-44.9, adult Z68.41 [facility] [id number] [place] [address] 19456- 6835 Sep, [facility] [id number] [place] [address] 37797- 5312 Sep, [facility] [id number] [place] [address] 32441- 0401 Sep, [facility] [id number] [place] [address] 10871- 8722 Sep, Mild intermittent asthma without complication J45.20 [facility] [id number] [place] [address] 73124- 8445 Sep, [facility] [id number] [place] [address] 00249- 6431 Sep, [facility] [id number] [place] [address] 08028- 9837 Sep, [facility] [id number] [place] [address] 92149- 9452 Sep, [facility] [id number] [place] [address] 19171- 0619 Sep, [facility] [address], [place] [address]- 4296 15 Sep, 2017 [facility] [address] [place] [address] 16049- 8397 15 Sep, 2017 Essential hypertension I10 [facility] [address], [place] [address]- 5446 15 Sep, 2017 [facility] [id number] [place] [address] 27336- 8278 15 Sep, 2017 [facility] [address] [place] [address] 59288- 3950 15 Sep, 2017 [facility] [id number] [place] [address] 37851- 3151 14 Sep, 2017 [facility] [address], [place] [address]- 7592 14 Sep, 2017 [facility] [address] [place] [address] 00000- 0770 14 Sep, 2017 [facility] [address], [place] [address]- 5910 13 Sep, 2017 [facility] [address] [place] [address] 27326- 1056 Sep, [facility] [address], [place] [address]- 2457 13 Sep, 2017 [facility] [address], [place] [address]- 9512 Sep, [facility] [address], [place] [address]- 1823 05 Sep, 2017 Mild intermittent asthma without complication J45.20 [facility] [address], [place] [address]- 7827 August, Essential hypertension I10 [facility] [address], [place] [address]- 8038 August, BMI 40.0-44.9, adult Z68.41 ; Dorsalgia, unspecified M54.9 ; Allergic state, initial encounter T78.40XA ; Mild intermittent asthma without complication J45.20 and 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 [facility] [id number] [place] [address] 18038- 4422 August, [facility] [id number] [place] [address] 16673- 9103 August, [facility] [address] 01977- 5395 August, [facility] [id number] [place] [address] 28110- 0256 August, Reactive depression F32.9 [facility] [id number] [place] [address] 79614- 7493 August, [facility] [address] 69531- 1867 August, [facility] [id number] [place] [address] 89740- 5929 August, [facility] [address] 87346- 6788 August, [facility] [id number] [place] [address] 40503- 9784 August, [facility] [id number] [place] [address] 03521- 9394 August, [facility] [id number] [place] [address] 34885- 3406 August, [facility] [address] 68957- 6927 August, Muscle spasms of both lower extremities M62.838 ; Essential hypertension I10 and Reactive depression F32.9 [facility] [id number] [place] [address] 54461- 4489 August, [facility] [id number], [place] [address]- 0877 Jul, [facility] [address], [place] [address]- 1558 Jul, [facility] [address], [place] [address]- 7304 Jul, [facility] [address], [place] [address]- 4266 Jul, [facility] [address], [place] [address]- 2017 Jul, [facility] [address], [place] [address]- 3006 Jul, [facility] [address], [place] [address]- 3403 Jul, [facility] [address], [place] [address]- 3403 Jul, [facility] [id number], [place] [address]- 5624 Jul, Essential hypertension I10 ; Other chronic [...]
--- OUTSIDE RECORDS SUMMARY | 2018-01-11 17:08 | XMS REPORT ---
Author Author ROSALINA GRAHAM Organization [facility] Address [address] [place] [address] Care Team Providers Care Retail Delivery Driver Name Role Phone ROSALINA GRAHAM Unavailable PROBLEMS Type Condition ICD9-CM Code IZN57-VD Code Onset Dates Condition Status SNOMED Code Problem Essential hypertension I10 Active 54581243 Problem Other chronic pain G89.29 Active 24471472 Problem Dorsalgia, unspecified M54.9 Active 707408576 Problem Allergic state, initial encounter T78.40XA Active 809486365 Problem Reactive depression F32.9 Active 67540789 Problem Muscle spasms of both lower extremities M62.838 Active 437465432 Problem Mild intermittent asthma without complication J45.20 Active 848302543 Problem PTSD (post-traumatic stress disorder) F43.10 Active 24455820 Problem Panic disorder F41.0 Active 473482774 Problem Severe episode of recurrent major depressive disorder, without psychotic features F33.2 Active 49168148 Problem Generalized anxiety disorder F41.1 Active 24797935 Problem Chronic obstructive pulmonary disease, unspecified COPD type J44.9 Active 04446249 Problem Falling R29.6 Active 090114891 ALLERGIES No Information ENCOUNTERS Encounter Location Date Diagnosis [facility] [id number], [place] [address] Dec, [facility] [id number], [place] [address]42 Dec, [facility] [id number] [place] [address] 11657- 1930 Nov, [facility] [id number], [place] [address] 9199 Nov, [facility] [id number], [place] [address] 2501 Nov, [place] [id number], [place] [address] 8799 Nov, [facility] [id number] [place] [address] 04365- 8869 Nov, [facility] [id number], [place] [address] 3713 Nov, [facility] [id number] [place] [address] 65686- 2040 Nov, [facility] [id number] [place] [address] 57938- 9656 Nov, [facility] [id number] [place] [address] 46247- 7937 Nov, [facility] [id number] [place] [address] 57645- 6968 Nov, [facility] [id number] [place] [address] 58112- 5502 Nov, Severe episode of recurrent major depressive disorder, without psychotic features F33.2 ; PTSD (post-traumatic stress disorder) F43.10 ; Panic disorder F41.0 and BMI 40.0-44.9, adult Z68.41 [facility] [id number], [place] [address] 0[address] Nov, [facility] [address] [place] [address] 50674- 3824 Nov, Essential hypertension I10 [facility] [id number], [place] [address]- 9909 Nov, Severe episode of recurrent major depressive disorder, without psychotic features F33.2 [facility] [address] [place] [address] 49504- 1499 Nov, Acute pain of left knee M25.562 [facility] [id number], [place] [address]- 8067 Nov, Severe episode of recurrent major depressive disorder, without psychotic features F33.2 ; PTSD (post-traumatic stress disorder) F43.10 ; Panic disorder F41.0 and BMI 40.0-44.9, adult Z68.41 [facility] [address] [place] [address] 63376- 5995 Oct, [facility] [id number], [place] [address]- 5897 Oct, [facility] [id number] [place] [address] 21234- 5136 Oct, [facility] [id number] [place] [address] 15597- 6642 Oct, [facility] [id number] [place] [address] 67599- 5622 Oct, Dorsalgia, unspecified M54.9 [facility] [id number] [place] [address] 87226- 7960 Oct, Severe episode of recurrent major depressive disorder, without psychotic features F33.2 and Generalized anxiety disorder F41.1 [facility] [id number], [place] [address]- 4008 Oct, [facility] [id number], [place] [address]- 7388 Oct, [facility] [id number], [place] [address] 9301 Oct, [facility] [id number], [place] [address]- 5768 Oct, [facility] [id number] [address]- 7623 Oct, [facility] [id number], [place] [address] 8647 Oct, [facility] [id number], [place] [address] 0920 Oct, [facility] [id number] [place] [address] 42644- 6201 Oct, [facility] [id number] [place] [address] 39312- 4858 Sep, Dorsalgia, unspecified M54.9 [facility] [id number] [place] [address] 17297- 4855 Sep, [facility] [address] 97834- 8673 Sep, [facility] [id number] [place] [address] 04661- 6057 Sep, Falling R29.6 ; Essential hypertension I10 ; Chronic obstructive pulmonary disease, unspecified COPD type J44.9 and BMI 40.0-44.9, adult Z68.41 [facility] [id number] [place] [address] 05768- 3941 Sep, [facility] [id number] [place] [address] 44657- 5334 Sep, [facility] [id number] [place] [address] 77678- 4161 Sep, [facility] [id number] [place] [address] 77392- 0661 Sep, Mild intermittent asthma without complication J45.20 [facility] [id number] [place] [address] 82553- 2712 Sep, [facility] [id number] [place] [address] 24843- 5090 Sep, [facility] [id number] [place] [address] 72865- 7499 Sep, [facility] [id number] [place] [address] 48389- 1770 Sep, [facility] [id number] [place] [address] 16193- 5642 Sep, [facility] [id number], [place] [address]- 8119 15 Sep, 2017 [facility] [address] [place] [address] 51447- 3240 15 Sep, [address] [facility] [id number], [place] [address]- 9984 15 Sep, 2017 [facility] [id number] [place] [address] 22633- 0641 15 Sep, 2017 [facility] [address] [place] [address] 45558- 4933 15 Sep, 2017 [facility] [id number] [place] [address] 97005- 1759 14 Sep, 2017 [facility] [id number], [place] [address]- 8577 14 Sep, 2017 [facility] [address] [place] [address] 69626- 9589 14 Sep, 2017 [facility] [id number], [place] [address]- 6420 13 Sep, 2017 [facility] [address] [place] [address] 00251- 0555 Sep, [facility] [id number], [place] [address]- 0557 13 Sep, 2017 [facility] [id number], [place] [address]- 6949 Sep, [facility] [id number], [place] [address]- 2777 05 Sep, 2017 Mild intermittent asthma without complication J45.20 [facility] [id number], [place] [address]- 2313 August, Essential hypertension I10 [facility] [id number], [place] [address]- 2766 August, BMI 40.0-44.9, adult Z68.41 ; Dorsalgia, unspecified M54.9 ; Allergic state, initial encounter T78.40XA ; Mild intermittent asthma without complication J45.20 and 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 [facility] [id number] [place] [address] 39365- 8937 August, [facility] [id number] [place] [address] 41565- 7221 August, [facility] [address] 92481- 3945 August, [facility] [id number] [place] [address] 43878- 7343 August, Reactive depression F32.9 [facility] [id number] [place] [address] 62127- 2087 August, [facility] [address] 76132- 6126 August, [facility] [id number] [place] [address] 40402- 0702 August, [facility] [address] 52874- 2515 August, [facility] [id number] [place] [address] 76186- 4863 August, [facility] [id number] [place] [address] 52991- 5101 August, [facility] [id number] [place] [address] 04472- 0650 August, [facility] [address] 69886- 2476 August, Muscle spasms of both lower extremities M62.838 ; Essential hypertension I10 and Reactive depression F32.9 [facility] [id number] [place] [address] 11338- 0318 August, [facility] [id number], [place] [address]- 3267 Jul, [facility] [id number], [place] [address]- 4161 Jul, [facility] [id number], [place] [address]- 0460 Jul, [facility] [id number], [place] [address]- 1306 Jul, [facility] [id number], [place] [address]- 3743 Jul, [facility] [id number], [place] [address]- 6353 Jul, [facility] [id number], [place] [address]- 7026 Jul, [facility] [id number], [place] [address]- 6517 Jul, [facility] [id number] [address]- 5509 Jul, Essential hypertension I10 ; Other chronic pain G89.29 ; Dorsalgia, unspecified M54.9 ; Reactive depression F32.9 ; Mild intermittent asthma without complication J45.20 ; Allergic state, initial encounter T78.40XA and Muscle spasms of both lower extremities M62.838 IMMUNIZATIONS No Known Immunizations SOCIAL HISTORY Never Assessed REASON FOR VISIT Re:RE:Re:RE:evaluation of meds- Duplicate PLAN OF CARE VITAL SIGNS MEDICATIONS Unknown [...]
--- OUTSIDE RECORDS SUMMARY | 2018-01-11 17:09 | XMS REPORT ---
Author Author ROSALINA GRAHAM Organization [facility] Address [address] [place] [address] Care Team Providers Care Clinical Investigator Name Role Phone ROSALINA GRAHAM Unavailable PROBLEMS Type Condition ICD9-CM Code XJA34-LV Code Onset Dates Condition Status SNOMED Code Problem Essential hypertension I10 Active 90708438 Problem Other chronic pain G89.29 Active 09606180 Problem Dorsalgia, unspecified M54.9 Active 206663978 Problem Allergic state, initial encounter T78.40XA Active 865926927 Problem Reactive depression F32.9 Active 56244713 Problem Muscle spasms of both lower extremities M62.838 Active 768924627 Problem Mild intermittent asthma without complication J45.20 Active 963251250 Problem PTSD (post-traumatic stress disorder) F43.10 Active 69078442 Problem Panic disorder F41.0 Active 546273117 Problem Severe episode of recurrent major depressive disorder, without psychotic features F33.2 Active 68323675 Problem Generalized anxiety disorder F41.1 Active 99628289 Problem Chronic obstructive pulmonary disease, unspecified COPD type J44.9 Active 81864687 Problem Falling R29.6 Active 578788305 ALLERGIES No Information ENCOUNTERS Encounter Location Date Diagnosis [facility] [id number], [place] [address]- 1679 Dec, [facility] [address], [place] [address]- 1180 Dec, [facility] [id number] [place] [address] 51131- 9096 Nov, [facility] [address], [place] [address]- 9365 Nov, [facility] [id number], [place] [address]- 7532 Nov, [place] [address], [place] [address]- 6674 Nov, [facility] [address] [place] [address] 36617- 8750 Nov, [facility] [address], [place] [address]- 1659 Nov, [facility] [id number] [place] [address] 26245- 5675 Nov, [facility] [id number] [place] [address] 11451- 9736 Nov, [facility] [id number] [place] [address] 92585- 7888 Nov, [facility] [id number] [place] [address] 10957- 1057 Nov, [facility] [id number] [place] [address] 41965- 7731 Nov, Severe episode of recurrent major depressive disorder, without psychotic features F33.2 ; PTSD (post-traumatic stress disorder) F43.10 ; Panic disorder F41.0 and BMI 40.0-44.9, adult Z68.41 [facility] [address], [place] [address]- 2015 Nov, [facility] [address] [place] [address] 12151- 1559 Nov, Essential hypertension I10 [facility] [address], [place] [address]- 1467 Nov, Severe episode of recurrent major depressive disorder, without psychotic features F33.2 [facility] [address] [place] [address] 90632- 7244 Nov, Acute pain of left knee M25.562 [facility] [address], [place] [address]- 8090 Nov, Severe episode of recurrent major depressive disorder, without psychotic features F33.2 ; PTSD (post-traumatic stress disorder) F43.10 ; Panic disorder F41.0 and BMI 40.0-44.9, adult Z68.41 [facility] [address] [place] [address] 25873- 5308 Oct, [facility] [address], [place] [address]- 2079 Oct, [facility] [id number] [place] [address] 97104- 2979 Oct, [facility] [id number] [place] [address] 41974- 6843 Oct, [facility] [id number] [place] [address] 33831- 1395 Oct, Dorsalgia, unspecified M54.9 [facility] [id number] [place] [address] 26682- 0554 Oct, Severe episode of recurrent major depressive disorder, without psychotic features F33.2 and Generalized anxiety disorder F41.1 [facility] [address], [place] [address]- 2599 Oct, [facility] [address], [place] [address]- 0763 Oct, [facility] [id number], [place] [address]- 2517 Oct, [facility] [id number], [place] [address]- 1666 Oct, [facility] [id number], [place] [address]- 8962 Oct, [facility] [id number], [place] [address]- 9049 Oct, [facility] [id number], [place] [address]- 3784 Oct, [facility] [id number] [place] [address] 96668- 5790 Oct, [facility] [id number] [place] [address] 49480- 8604 Sep, Dorsalgia, unspecified M54.9 [facility] [id number] [place] [address] 45089- 9363 Sep, [facility] [address] 12106- 0738 Sep, [facility] [id number] [place] [address] 81129- 4144 Sep, Falling R29.6 ; Essential hypertension I10 ; Chronic obstructive pulmonary disease, unspecified COPD type J44.9 and BMI 40.0-44.9, adult Z68.41 [facility] [id number] [place] [address] 42033- 6532 Sep, [facility] [id number] [place] [address] 52642- 1111 Sep, [facility] [id number] [place] [address] 13956- 8647 Sep, [facility] [id number] [place] [address] 56724- 0747 Sep, Mild intermittent asthma without complication J45.20 [facility] [id number] [place] [address] 90114- 4326 Sep, [facility] [id number] [place] [address] 86427- 8675 Sep, [facility] [id number] [place] [address] 01393- 8964 Sep, [facility] [id number] [place] [address] 03914- 6203 Sep, [facility] [id number] [place] [address] 06371- 3009 Sep, [facility] [address], [place] [address]- 0550 15 Sep, 2017 [facility] [id number] [place] [address] 57064- 3639 15 Sep, 2017 Essential hypertension I10 [facility] [address], [place] [address]- 5847 15 Sep, 2017 [facility] [id number] [place] [address] 36157- 9330 15 Sep, 2017 [facility] [address] [place] [address] 42907- 0344 15 Sep, 2017 [facility] [id number] [place] [address] 41670- 7582 14 Sep, 2017 [facility] [address], [place] [address]- 4741 14 Sep, 2017 [facility] [id number] [place] [address] 70627- 1853 14 Sep, 2017 [facility] [address], [place] [address]- 0330 13 Sep, 2017 [facility] [id number] [place] [address] 68941- 7563 Sep, [facility] [address], [place] [address]- 8838 13 Sep, 2017 [facility] [address], [place] [address]- 7965 Sep, [facility] [address], [place] [address]- 0104 05 Sep, 2017 Mild intermittent asthma without complication J45.20 [facility] [address], [place] [address]- 0064 August, Essential hypertension I10 [facility] [address], [place] [address]- 8533 August, BMI 40.0-44.9, adult Z68.41 ; Dorsalgia, unspecified M54.9 ; Allergic state, initial encounter T78.40XA ; Mild intermittent asthma without complication J45.20 and 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 [facility] [id number] [place] [address] 41995- 9053 August, [facility] [id number] [place] [address] 07529- 6261 August, [facility] [address] 56451- 6445 August, [facility] [id number] [place] [address] 29105- 5753 August, Reactive depression F32.9 [facility] [id number] [place] [address] 26859- 1544 August, [facility] [address] 51772- 5474 August, [facility] [id number] [place] [address] 00521- 3700 August, [facility] [address] 62084- 0233 August, [facility] [id number] [place] [address] 71535- 9332 August, [facility] [id number] [place] [address] 81312- 8679 August, [facility] [id number] [place] [address] 29739- 2916 August, [facility] [address] 26182- 4729 August, Muscle spasms of both lower extremities M62.838 ; Essential hypertension I10 and Reactive depression F32.9 [facility] [id number] [place] [address] 38822- 2902 August, [facility] [id number], [place] [address]- 8227 Jul, [facility] [id number] [place] [address] Jul, [facility] [id number] [place] [address] Jul, [facility] [id number] [place] [address] Jul, [facility] [id number] [address] Jul, [facility] [id number] [place] [address] Jul, [facility] [id number] [place] [address] Jul, [facility] [id number] [place] [address] Jul, [facility] [address] [id number] [address] Jul, Essential hypertension I10 ; Other chronic pain G89.29 ; Dorsalgia, unspecified M54.9 ; Reactive depression F32.9 ; Mild intermittent asthma without complication J45.20 ; Allergic state, initial encounter T78.40XA and Muscle spasms of both lower extremities M62.838 IMMUNIZATIONS No Known Immunizations SOCIAL HISTORY Never Assessed REASON FOR VISIT Re:RE:evaluation of meds PLAN OF CARE VITAL SIGNS [...]
--- OUTSIDE RECORDS SUMMARY | 2018-01-11 17:09 | XMS REPORT ---
Author Author ROSALINA GRAHAM Organization [facility] Address [address] [place] [address] Care Team Providers Care Apprentice Painter Hand Name Role Phone ROSALINA GRAHAM Unavailable PROBLEMS Type Condition ICD9-CM Code XBM56-CT Code Onset Dates Condition Status SNOMED Code Problem Essential hypertension I10 Active 82966272 Problem Other chronic pain G89.29 Active 93977504 Problem Dorsalgia, unspecified M54.9 Active 919108934 Problem Allergic state, initial encounter T78.40XA Active 349174516 Problem Reactive depression F32.9 Active 31584193 Problem Muscle spasms of both lower extremities M62.838 Active 102099491 Problem Mild intermittent asthma without complication J45.20 Active 804162709 Problem PTSD (post-traumatic stress disorder) F43.10 Active 75150163 Problem Panic disorder F41.0 Active 250186660 Problem Severe episode of recurrent major depressive disorder, without psychotic features F33.2 Active 75834147 Problem Generalized anxiety disorder F41.1 Active 69966830 Problem Chronic obstructive pulmonary disease, unspecified COPD type J44.9 Active 20409756 Problem Falling R29.6 Active 756709531 ALLERGIES No Information ENCOUNTERS Encounter Location Date Diagnosis [facility] [id number] [address] Dec, [facility] [address] [address] 2013 Dec, [facility] [id number] [place] [address] 73133- 8351 Nov, [facility] [address] [address] 0740 Nov, [facility] [id number], [place] [address] 2060 Nov, [place] [id number] [address] 0727 Nov, [facility] [id number] [place] [address] 81216- 1739 Nov, [facility] [address] [address] 4222 Nov, [facility] [id number] [place] [address] 58634- 3473 Nov, [facility] [id number] [place] [address] 31539- 3075 Nov, [facility] [id number] [place] [address] 61842- 7000 Nov, [facility] [id number] [place] [address] 06126- 4769 Nov, [facility] [id number] [place] [address] 25577- 2852 Nov, Severe episode of recurrent major depressive disorder, without psychotic features F33.2 ; PTSD (post-traumatic stress disorder) F43.10 ; Panic disorder F41.0 and BMI 40.0-44.9, adult Z68.41 [facility] [address] [address] 2278 Nov, [facility] [id number] [place] [address] 55688- 6094 Nov, Essential hypertension I10 [facility] [address] [address] Nov, Severe episode of recurrent major depressive disorder, without psychotic features F33.2 [facility] [id number] [place] [address] 02359- 7065 Nov, Acute pain of left knee M25.562 [facility] [address] [address]- 5681 Nov, Severe episode of recurrent major depressive disorder, without psychotic features F33.2 ; PTSD (post-traumatic stress disorder) F43.10 ; Panic disorder F41.0 and BMI 40.0-44.9, adult Z68.41 [facility] [id number] [place] [address] 02211- 3082 Oct, [facility] [address] [address]- 5429 Oct, [facility] [id number] [place] [address] 79540- 3742 Oct, [facility] [id number] [place] [address] 31157- 5985 Oct, [facility] [id number] [place] [address] 31936- 6030 Oct, Dorsalgia, unspecified M54.9 [facility] [id number] [place] [address] 36544- 3301 Oct, Severe episode of recurrent major depressive disorder, without psychotic features F33.2 and Generalized anxiety disorder F41.1 [facility] [address] [address] 2519 Oct, [facility] [address], [place] [address]- 3827 Oct, [facility] [id number] [address]- 6968 Oct, [facility] [id number] [address]- 0765 Oct, [facility] [id number] [address]- 2946 Oct, [facility] [id number] [address]- 7958 Oct, [facility] [id number] [address]- 5792 Oct, [facility] [id number] [place] [address] 59138- 2126 Oct, [facility] [id number] [place] [address] 10925- 9909 Sep, Dorsalgia, unspecified M54.9 [facility] [id number] [place] [address] 00094- 8331 Sep, [facility] [address] 08881- 7756 Sep, [facility] [id number] [place] [address] 60923- 5984 Sep, Falling R29.6 ; Essential hypertension I10 ; Chronic obstructive pulmonary disease, unspecified COPD type J44.9 and BMI 40.0-44.9, adult Z68.41 [facility] [id number] [place] [address] 00700- 5064 Sep, [facility] [id number] [place] [address] 12968- 7262 Sep, [facility] [id number] [place] [address] 65212- 1770 Sep, [facility] [id number] [place] [address] 68355- 2976 Sep, Mild intermittent asthma without complication J45.20 [facility] [id number] [place] [address] 66149- 6103 Sep, [facility] [id number] [place] [address] 59330- 4101 Sep, [facility] [id number] [place] [address] 49567- 9212 Sep, [facility] [id number] [place] [address] 78108- 0070 Sep, [facility] [id number] [place] [address] 94937- 4691 Sep, [facility] [address] [address]- 7710 15 Sep, 2017 [facility] [id number] [place] [address] 47912- 2786 15 Sep, 2017 Essential hypertension I10 [facility] [address] [address]- 5447 15 Sep, 2017 [facility] [id number] [place] [address] 41390- 3977 15 Sep, 2017 [facility] [id number] [place] [address] 02485- 4708 15 Sep, 2017 [facility] [id number] [place] [address] 20837- 8086 14 Sep, 2017 [facility] [address] [address]- 4641 14 Sep, 2017 [facility] [id number] [place] [address] 85646- 8850 14 Sep, 2017 [facility] [address] [address]- 7111 13 Sep, 2017 [facility] [id number] [place] [address] 70062- 2036 Sep, [facility] [address] [address]- 8769 13 Sep, 2017 [facility] [address] [address]- 5961 Sep, [facility] [address] [address]- 3796 05 Sep, 2017 Mild intermittent asthma without complication J45.20 [facility] [address] [address]- 6133 August, Essential hypertension I10 [facility] [address] [address]- 6084 August, BMI 40.0-44.9, adult Z68.41 ; Dorsalgia, unspecified M54.9 ; Allergic state, initial encounter T78.40XA ; Mild intermittent asthma without complication J45.20 and 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 [facility] [id number] [place] [address] 36739- 0361 August, [facility] [id number] [place] [address] 69074- 4542 August, [facility] [address] 13124- 5383 August, [facility] [id number] [place] [address] 50854- 1403 August, Reactive depression F32.9 [facility] [id number] [place] [address] 35864- 0010 August, [facility] [address] 88232- 7623 August, [facility] [id number] [place] [address] 48717- 7919 August, [facility] [address] 73595- 8792 August, [facility] [id number] [place] [address] 51211- 9632 August, [facility] [id number] [place] [address] 90831- 8347 August, [facility] [id number] [place] [address] 52537- 7313 August, [facility] [address] 06100- 8157 August, Muscle spasms of both lower extremities M62.838 ; Essential hypertension I10 and Reactive depression F32.9 [facility] [id number] [place] [address] 68472- 5507 August, [facility] [id number] [address]- 9514 Jul, [facility] [address] [address]- 4331 Jul, [facility] [address] [address]- 6163 Jul, [facility] [address] [address]- 3505 Jul, [facility] [address] [address]- 7720 Jul, [facility] [id number] [address]- 3587 Jul, [facility] [address] [address]- 0950 Jul, [facility] [address] [address]- 7625 Jul, [facility] [id number] [address]- 6340 Jul, Essential hypertension I10 ; Other chronic [...]
--- OUTSIDE RECORDS SUMMARY | 2018-01-11 17:09 | XMS REPORT ---
Author Author ROSALINA GRAHAM Organization [facility] Address [address] [place] [address] Care Team Providers Care Core Driller Helper Name Role Phone ROSALINA GRAHAM Unavailable PROBLEMS Type Condition ICD9-CM Code NYX93-ZZ Code Onset Dates Condition Status SNOMED Code Problem Essential hypertension I10 Active 46036513 Problem Other chronic pain G89.29 Active 25952143 Problem Dorsalgia, unspecified M54.9 Active 874755007 Problem Allergic state, initial encounter T78.40XA Active 513841590 Problem Reactive depression F32.9 Active 82485723 Problem Muscle spasms of both lower extremities M62.838 Active 977559301 Problem Mild intermittent asthma without complication J45.20 Active 072735761 Problem PTSD (post-traumatic stress disorder) F43.10 Active 96734928 Problem Panic disorder F41.0 Active 418976886 Problem Severe episode of recurrent major depressive disorder, without psychotic features F33.2 Active 14169407 Problem Generalized anxiety disorder F41.1 Active 56071580 Problem Chronic obstructive pulmonary disease, unspecified COPD type J44.9 Active 06212503 Problem Falling R29.6 Active 102950142 ALLERGIES No Information ENCOUNTERS Encounter Location Date Diagnosis [facility] [id number] [address]- 9740 Dec, [facility] [address] [address]- 3508 Dec, [facility] [id number] [place] [address] 59449- 2446 Nov, [facility] [address] [address]- 1893 Nov, [facility] [id number] [address]- 4845 Nov, [place] [address] [address]- 4841 Nov, [facility] [id number] [place] [address] 74094- 5284 Nov, [facility] [address] [address]- 4644 Nov, [facility] [id number] [place] [address] 51833- 6086 Nov, [facility] [id number] [place] [address] 30583- 3340 Nov, [facility] [id number] [place] [address] 36022- 2597 Nov, [facility] [id number] [place] [address] 79683- 6331 Nov, [facility] [id number] [place] [address] 60068- 4170 Nov, Severe episode of recurrent major depressive disorder, without psychotic features F33.2 ; PTSD (post-traumatic stress disorder) F43.10 ; Panic disorder F41.0 and BMI 40.0-44.9, adult Z68.41 [facility] [address] [address]- 2612 Nov, [facility] [id number] [place] [address] 87101- 2415 Nov, Essential hypertension I10 [facility] [address] [address]- 8675 Nov, Severe episode of recurrent major depressive disorder, without psychotic features F33.2 [facility] [address] [place] [address] 36768- 4345 Nov, Acute pain of left knee M25.562 [facility] [address] [address]- 2614 Nov, Severe episode of recurrent major depressive disorder, without psychotic features F33.2 ; PTSD (post-traumatic stress disorder) F43.10 ; Panic disorder F41.0 and BMI 40.0-44.9, adult Z68.41 [facility] [id number] [place] [address] 19732- 3004 Oct, [facility] [address] [address]- 8869 Oct, [facility] [id number] [place] [address] 99894- 5998 Oct, [facility] [id number] [place] [address] 92121- 1474 Oct, [facility] [id number] [place] [address] 56183- 2604 Oct, Dorsalgia, unspecified M54.9 [facility] [id number] [place] [address] 91956- 2817 Oct, Severe episode of recurrent major depressive disorder, without psychotic features F33.2 and Generalized anxiety disorder F41.1 [facility] [address] [address]- 2251 Oct, [facility] [address] [address]- 9295 Oct, [facility] [id number] [address]- 2145 Oct, [facility] [id number] [address]- 5810 Oct, [facility] [id number] [address]- 7216 Oct, [facility] [id number] [address]- 3262 Oct, [facility] [id number] [address]- 3853 Oct, [facility] [id number] [place] [address] 91971- 5558 Oct, [facility] [id number] [place] [address] 60338- 7262 Sep, Dorsalgia, unspecified M54.9 [facility] [id number] [place] [address] 37600- 1103 Sep, [facility] [address] 79770- 7705 Sep, [facility] [id number] [place] [address] 75819- 9110 Sep, Falling R29.6 ; Essential hypertension I10 ; Chronic obstructive pulmonary disease, unspecified COPD type J44.9 and BMI 40.0-44.9, adult Z68.41 [facility] [id number] [place] [address] 85963- 6519 Sep, [facility] [id number] [place] [address] 86290- 5391 Sep, [facility] [id number] [place] [address] 73517- 7398 Sep, [facility] [id number] [place] [address] 19695- 3685 Sep, Mild intermittent asthma without complication J45.20 [facility] [id number] [place] [address] 60453- 9441 Sep, [facility] [id number] [place] [address] 31502- 3887 Sep, [facility] [id number] [place] [address] 53385- 0599 Sep, [facility] [id number] [place] [address] 22398- 0195 Sep, [facility] [id number] [place] [address] 32111- 4396 Sep, [facility] [address] [address]- 1655 15 Sep, 2017 [facility] [id number] [place] [address] 94751- 8883 15 Sep, 2017 Essential hypertension I10 [facility] [address] [address]- 7996 15 Sep, 2017 [facility] [id number] [place] [address] 62515- 1285 15 Sep, 2017 [facility] [address] [place] [address] 21601- 0297 15 Sep, 2017 [facility] [id number] [place] [address] 50033- 9059 14 Sep, 2017 [facility] [address] [address]- 8703 14 Sep, 2017 [facility] [address] [place] [address] 09049- 2237 14 Sep, 2017 [facility] [address] [address]- 4059 13 Sep, 2017 [facility] [address] [place] [address] 09168- 7081 Sep, [facility] [address] [address]- 8185 13 Sep, 2017 [facility] [address] [address]- 0167 Sep, [facility] [address] [address]- 7102 05 Sep, 2017 Mild intermittent asthma without complication J45.20 [facility] [address] [address]- 3304 August, Essential hypertension I10 [facility] [address] [address]- 5086 August, BMI 40.0-44.9, adult Z68.41 ; Dorsalgia, unspecified M54.9 ; Allergic state, initial encounter T78.40XA ; Mild intermittent asthma without complication J45.20 and 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 [facility] [id number] [place] [address] 97181- 9832 August, [facility] [id number] [place] [address] 92045- 5099 August, [facility] [address] 87255- 3156 August, [facility] [id number] [place] [address] 91055- 5125 August, Reactive depression F32.9 [facility] [id number] [place] [address] 94267- 9316 August, [facility] [address] 39534- 4204 August, [facility] [id number] [place] [address] 25868- 1774 August, [facility] [address] 39492- 4559 August, [facility] [id number] [place] [address] 37609- 3670 August, [facility] [id number] [place] [address] 25308- 2774 August, [facility] [id number] [place] [address] 38484- 0654 August, [facility] [address] 29076- 2446 August, Muscle spasms of both lower extremities M62.838 ; Essential hypertension I10 and Reactive depression F32.9 [facility] [id number] [place] [address] 89944- 1519 August, [facility] [id number] [address]- 0725 Jul, [facility] [address] [address]- 8972 Jul, [facility] [address] [address]- 6471 Jul, [facility] [address] [address]- 4333 Jul, [facility] [address] [address]- 7572 Jul, [facility] [address] [address]- 2886 Jul, [facility] [address] [address]- 3421 Jul, [facility] [address] [address]- 8639 Jul, [facility] [id number] [address]- 6846 Jul, Essential hypertension I10 ; Other chronic [...]
--- OUTSIDE RECORDS SUMMARY | 2018-01-11 17:09 | XMS REPORT ---
Author Author ROSALINA GRAHAM Organization [facility] Address [address] [place] [address] Care Team Providers Care Maintenance Man Name Role Phone ROSALINA GRAHAM Unavailable PROBLEMS Type Condition ICD9-CM Code BRS44-BW Code Onset Dates Condition Status SNOMED Code Problem Essential hypertension I10 Active 20839644 Problem Other chronic pain G89.29 Active 51434869 Problem Dorsalgia, unspecified M54.9 Active 517441135 Problem Allergic state, initial encounter T78.40XA Active 827966982 Problem Reactive depression F32.9 Active 60392767 Problem Muscle spasms of both lower extremities M62.838 Active 842371185 Problem Mild intermittent asthma without complication J45.20 Active 906019942 Problem PTSD (post-traumatic stress disorder) F43.10 Active 43671476 Problem Panic disorder F41.0 Active 395447643 Problem Severe episode of recurrent major depressive disorder, without psychotic features F33.2 Active 90854531 Problem Generalized anxiety disorder F41.1 Active 63579653 Problem Chronic obstructive pulmonary disease, unspecified COPD type J44.9 Active 53674375 Problem Falling R29.6 Active 699876936 ALLERGIES No Information ENCOUNTERS Encounter Location Date Diagnosis [facility] [id number] [address] Dec, [facility] [address], [place] [address] 5976 Dec, [facility] [address] [place] [address] 31355- 3401 Nov, [facility] [address], [place] [address] 0481 Nov, [facility] [id number], [place] [address] 2827 Nov, [place] [address], [place] [address] 8004 Nov, [facility] [address] [place] [address] 79982- 5268 Nov, [facility] [address], [place] [address] 1867 Nov, [facility] [id number] [place] [address] 00041- 4927 Nov, [facility] [address] [place] [address] 08812- 5134 Nov, [facility] [id number] [place] [address] 73874- 0795 Nov, [facility] [id number] [place] [address] 71942- 7312 Nov, [facility] [id number] [place] [address] 15692- 1760 Nov, Severe episode of recurrent major depressive disorder, without psychotic features F33.2 ; PTSD (post-traumatic stress disorder) F43.10 ; Panic disorder F41.0 and BMI 40.0-44.9, adult Z68.41 [facility] [address] [address]- 7559 Nov, [facility] [address] [place] [address] 13636- 4325 Nov, Essential hypertension I10 [facility] [address], [place] [address] 9854 Nov, Severe episode of recurrent major depressive disorder, without psychotic features F33.2 [facility] [address] [place] [address] 48179- 8720 Nov, Acute pain of left knee M25.562 [facility] [address], [place] [address]- 6267 Nov, Severe episode of recurrent major depressive disorder, without psychotic features F33.2 ; PTSD (post-traumatic stress disorder) F43.10 ; Panic disorder F41.0 and BMI 40.0-44.9, adult Z68.41 [facility] [address] [place] [address] 74999- 2791 Oct, [facility] [address], [place] [address]- 3267 Oct, [facility] [id number] [place] [address] 16924- 9649 Oct, [facility] [id number] [place] [address] 07006- 3945 Oct, [facility] [id number] [place] [address] 77701- 3540 Oct, Dorsalgia, unspecified M54.9 [facility] [id number] [place] [address] 71758- 9368 Oct, Severe episode of recurrent major depressive disorder, without psychotic features F33.2 and Generalized anxiety disorder F41.1 [facility] [address], [place] [address]- 8341 Oct, [facility] [address], [place] [address] 1965 Oct, [facility] [id number], [place] [address]- 8257 Oct, [facility] [id number], [place] [address]- 7728 Oct, [facility] [id number], [place] [address]- 6566 Oct, [facility] [id number], [place] [address]- 6685 Oct, [facility] [id number], [place] [address]- 5787 Oct, [facility] [id number] [place] [address] 56689- 1444 Oct, [facility] [id number] [place] [address] 49277- 3098 Sep, Dorsalgia, unspecified M54.9 [facility] [id number] [place] [address] 56171- 9476 Sep, [facility] [address] [address]368- 9650 Sep, [facility] [id number] [place] [address] 27139- 1346 Sep, Falling R29.6 ; Essential hypertension I10 ; Chronic obstructive pulmonary disease, unspecified COPD type J44.9 and BMI 40.0-44.9, adult Z68.41 [facility] [id number] [place] [address] 30114- 4429 Sep, [facility] [id number] [place] [address] 95746- 3415 Sep, [facility] [id number] [place] [address] 71251- 7758 Sep, [facility] [id number] [place] [address] 45480- 4855 Sep, Mild intermittent asthma without complication J45.20 [facility] [id number] [place] [address] 63370- 3938 Sep, [facility] [id number] [place] [address] 91225- 0824 Sep, [facility] [id number] [place] [address] 37521- 5596 Sep, [facility] [id number] [place] [address] 32376- 5296 Sep, [facility] [id number] [place] [address] 33717- 4841 Sep, [facility] [address], [place] [address]- 2498 15 Sep, 2017 [facility] [address] [place] [address] 68678- 8965 15 Sep, 2017 Essential hypertension I10 [facility] [address], [place] [address]- 8203 15 Sep, 2017 [facility] [id number] [place] [address] 45686- 2026 15 Sep, 2017 [facility] [address] [place] [address] 62347- 0025 15 Sep, 2017 [facility] [id number] [place] [address] 36560- 4138 14 Sep, 2017 [facility] [address], [place] [address]- 2670 14 Sep, 2017 [facility] [address] [place] [address] 98103- 7905 14 Sep, 2017 [facility] [address], [place] [address]- 8681 13 Sep, 2017 [facility] [address] [place] [address] 65766- 0502 Sep, [facility] [address], [place] [address]- 3903 13 Sep, 2017 [facility] [address], [place] [address]- 4179 Sep, [facility] [address], [place] [address]- 3005 05 Sep, 2017 Mild intermittent asthma without complication J45.20 [facility] [address], [place] [address]- 2488 August, Essential hypertension I10 [facility] [address], [place] [address]- 3370 August, BMI 40.0-44.9, adult Z68.41 ; Dorsalgia, unspecified M54.9 ; Allergic state, initial encounter T78.40XA ; Mild intermittent asthma without complication J45.20 and 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 [facility] [id number] [place] [address] 86549- 2913 August, [facility] [id number] [place] [address] 68023- 3593 August, [facility] [address] 65767- 0752 August, [facility] [id number] [place] [address] 42490- 0247 August, Reactive depression F32.9 [facility] [id number] [place] [address] 72288- 3857 August, [facility] [address] 95891- 6442 August, [facility] [id number] [place] [address] 77109- 1985 August, [facility] [address] 41845- 5775 August, [facility] [id number] [place] [address] 71510- 1811 August, [facility] [id number] [place] [address] 21488- 7447 August, [facility] [id number] [place] [address] 60605- 8289 August, [facility] [address] 29007- 5632 August, Muscle spasms of both lower extremities M62.838 ; Essential hypertension I10 and Reactive depression F32.9 [facility] [id number] [place] [address] 90803- 8166 August, [facility] [id number], [place] [address]- 4599 Jul, [facility] [address], [place] [address]- 9368 Jul, [facility] [address], [place] [address]- 9809 Jul, [facility] [address], [place] [address]- 7676 Jul, [facility] [address], [place] [address]- 8372 Jul, [facility] [address], [place] [address]- 6541 Jul, [facility] [address], [place] [address]- 9447 Jul, [facility] [address], [place] [address]- 9658 Jul, [facility] [id number], [place] [address]- 7764 Jul, Essential hypertension I10 ; Other chronic pain G89.29 ; Dorsalgia, unspecified M54.9 ; Reactive depression F32.9 ; Mild intermittent asthma without complication J45.20 ; Allergic state, initial encounter T78.40XA and Muscle spasms of both lower extremities M62.838 IMMUNIZATIONS No Known Immunizations SOCIAL HISTORY Never Assessed REASON FOR VISIT Update Demographics - Additional Info PLAN OF CARE VITAL SIGNS MEDICATIONS [...]
--- OUTSIDE RECORDS SUMMARY | 2018-01-11 17:10 | XMS REPORT ---
Author Author ROSALINA GARHAM Organization [facility] Address [address] [place] [address] Care Team Providers Care Wedding Decorator Name Role Phone ROSALINA GRAHAM Unavailable PROBLEMS Type Condition ICD9-CM Code XUE53-WP Code Onset Dates Condition Status SNOMED Code Problem Essential hypertension I10 Active 42297428 Problem Other chronic pain G89.29 Active 66748878 Problem Dorsalgia, unspecified M54.9 Active 012293188 Problem Allergic state, initial encounter T78.40XA Active 625002305 Problem Reactive depression F32.9 Active 92598562 Problem Muscle spasms of both lower extremities M62.838 Active 796795601 Problem Mild intermittent asthma without complication J45.20 Active 642840333 Problem PTSD (post-traumatic stress disorder) F43.10 Active 97358200 Problem Panic disorder F41.0 Active 044448780 Problem Severe episode of recurrent major depressive disorder, without psychotic features F33.2 Active 94308525 Problem Generalized anxiety disorder F41.1 Active 79055139 Problem Chronic obstructive pulmonary disease, unspecified COPD type J44.9 Active 53395030 Problem Falling R29.6 Active 431675274 ALLERGIES No Information ENCOUNTERS Encounter Location Date Diagnosis [facility] [id number], [place] [address]- 2517 Dec, [facility] [address], [place] [address]- 3800 Dec, [facility] [address] [place] [address] 07789- 0973 Nov, [facility] [address], [place] [address]- 8844 Nov, [facility] [id number], [place] [address]- 0449 Nov, [place] [address], [place] [address]- 0089 Nov, [facility] [address] [place] [address] 51853- 4665 Nov, [facility] [address], [place] [address]- 0496 Nov, [facility] [id number] [place] [address] 70257- 5640 Nov, [facility] [address] [place] [address] 20554- 2784 Nov, [facility] [id number] [place] [address] 78656- 8910 Nov, [facility] [id number] [place] [address] 00791- 6078 Nov, [facility] [id number] [place] [address] 98002- 9810 Nov, Severe episode of recurrent major depressive disorder, without psychotic features F33.2 ; PTSD (post-traumatic stress disorder) F43.10 ; Panic disorder F41.0 and BMI 40.0-44.9, adult Z68.41 [facility] [address], [place] [address]- 1463 Nov, [facility] [address] [place] [address] 74148- 7003 Nov, Essential hypertension I10 [facility] [address], [place] [address]- 7734 Nov, Severe episode of recurrent major depressive disorder, without psychotic features F33.2 [facility] [address] [place] [address] 08983- 5025 Nov, Acute pain of left knee M25.562 [facility] [address], [place] [address]- 1685 Nov, Severe episode of recurrent major depressive disorder, without psychotic features F33.2 ; PTSD (post-traumatic stress disorder) F43.10 ; Panic disorder F41.0 and BMI 40.0-44.9, adult Z68.41 [facility] [address] [place] [address] 61066- 1221 Oct, [facility] [address], [place] [address]- 2227 Oct, [facility] [id number] [place] [address] 05321- 6561 Oct, [facility] [id number] [place] [address] 97428- 1738 Oct, [facility] [id number] [place] [address] 10064- 1046 Oct, Dorsalgia, unspecified M54.9 [facility] [id number] [place] [address] 46812- 2172 Oct, Severe episode of recurrent major depressive disorder, without psychotic features F33.2 and Generalized anxiety disorder F41.1 [facility] [address], [place] [address]- 0764 Oct, [facility] [address], [place] [address]- 5811 Oct, [facility] [id number], [place] [address]- 2206 Oct, [facility] [id number], [place] [address]- 7458 Oct, [facility] [id number], [place] [address]- 1289 Oct, [facility] [id number], [place] [address]- 8333 Oct, [facility] [id number], [place] [address]- 2034 Oct, [facility] [id number] [place] [address] 92091- 2661 Oct, [facility] [id number] [place] [address] 40527- 0648 Sep, Dorsalgia, unspecified M54.9 [facility] [id number] [place] [address] 60826- 9118 Sep, [facility] [address] 88913- 8095 Sep, [facility] [id number] [place] [address] 44181- 8590 Sep, Falling R29.6 ; Essential hypertension I10 ; Chronic obstructive pulmonary disease, unspecified COPD type J44.9 and BMI 40.0-44.9, adult Z68.41 [facility] [id number] [place] [address] 35029- 1312 Sep, [facility] [id number] [place] [address] 50527- 4148 Sep, [facility] [id number] [place] [address] 85686- 5634 Sep, [facility] [id number] [place] [address] 09482- 0654 Sep, Mild intermittent asthma without complication J45.20 [facility] [id number] [place] [address] 85466- 3794 Sep, [facility] [id number] [place] [address] 35531- 9350 Sep, [facility] [id number] [place] [address] 67260- 7163 Sep, [facility] [id number] [place] [address] 32319- 7384 Sep, [facility] [id number] [place] [address] 53405- 1417 Sep, [facility] [address], [place] [address]- 8416 15 Sep, 2017 [facility] [address] [place] [address] 68825- 2252 15 Sep, 2017 Essential hypertension I10 [facility] [address], [place] [address]- 3854 15 Sep, 2017 [facility] [id number] [place] [address] 04576- 5986 15 Sep, 2017 [facility] [address] [place] [address] 55116- 6952 15 Sep, 2017 [facility] [id number] [place] [address] 22072- 6061 14 Sep, 2017 [facility] [address], [place] [address]- 8175 14 Sep, 2017 [facility] [address] [place] [address] 35139- 7088 14 Sep, 2017 [facility] [address], [place] [address]- 0660 13 Sep, 2017 [facility] [address] [place] [address] 51730- 5312 Sep, [facility] [address], [place] [address]- 5785 13 Sep, 2017 [facility] [address], [place] [address]- 7374 Sep, [facility] [address], [place] [address]- 1803 05 Sep, 2017 Mild intermittent asthma without complication J45.20 [facility] [address], [place] [address]- 1294 August, Essential hypertension I10 [facility] [address], [place] [address]- 7200 August, BMI 40.0-44.9, adult Z68.41 ; Dorsalgia, unspecified M54.9 ; Allergic state, initial encounter T78.40XA ; Mild intermittent asthma without complication J45.20 and 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 [facility] [id number] [place] [address] 84153- 2029 August, [facility] [id number] [place] [address] 73171- 1939 August, [facility] [address] 82183- 4086 August, [facility] [id number] [place] [address] 17040- 8898 August, Reactive depression F32.9 [facility] [id number] [place] [address] 66095- 4094 August, [facility] [address] 91893- 5849 August, [facility] [id number] [place] [address] 02703- 7821 August, [facility] [address] 77817- 2841 August, [facility] [id number] [place] [address] 39707- 4334 August, [facility] [id number] [place] [address] 22245- 7577 August, [facility] [id number] [place] [address] 11310- 2747 August, [facility] [address] 96793- 7475 August, Muscle spasms of both lower extremities M62.838 ; Essential hypertension I10 and Reactive depression F32.9 [facility] [id number] [place] [address] 66192- 6667 August, [facility] [id number], [place] [address]- 5378 Jul, [facility] [address], [place] [address]- 8391 Jul, [facility] [address], [place] [address]- 3937 Jul, [facility] [address], [place] [address]- 1557 Jul, [facility] [address], [place] [address]- 4165 Jul, [facility] [address], [place] [address]- 8060 Jul, [facility] [address], [place] [address]- 9444 Jul, [facility] [address], [place] [address]- 5777 Jul, [facility] [id number], [place] [address]- 1077 Jul, Essential hypertension I10 ; Other chronic pain G89.29 ; Dorsalgia, unspecified M54.9 ; Reactive depression F32.9 ; Mild intermittent asthma without complication J45.20 ; Allergic state, initial encounter T78.40XA and Muscle spasms of both lower extremities M62.838 IMMUNIZATIONS No Known Immunizations SOCIAL HISTORY Never Assessed REASON FOR VISIT evaluation of meds PLAN OF CARE VITAL SIGNS [...]
--- OUTSIDE RECORDS SUMMARY | 2018-01-11 17:10 | XMS REPORT ---
Author Author ROSALINA GRAHAM Organization [facility] Address [address] [place] [address] Care Team Providers Care Order Dispatcher Name Role Phone ROSALINA GRAHAM Unavailable PROBLEMS Type Condition ICD9-CM Code WUZ14-LV Code Onset Dates Condition Status SNOMED Code Problem Essential hypertension I10 Active 26185125 Problem Other chronic pain G89.29 Active 96694661 Problem Dorsalgia, unspecified M54.9 Active 733077031 Problem Allergic state, initial encounter T78.40XA Active 204261040 Problem Reactive depression F32.9 Active 80643893 Problem Muscle spasms of both lower extremities M62.838 Active 695423828 Problem Mild intermittent asthma without complication J45.20 Active 487181792 Problem PTSD (post-traumatic stress disorder) F43.10 Active 25124244 Problem Panic disorder F41.0 Active 248324911 Problem Severe episode of recurrent major depressive disorder, without psychotic features F33.2 Active 92811236 Problem Generalized anxiety disorder F41.1 Active 36079305 Problem Chronic obstructive pulmonary disease, unspecified COPD type J44.9 Active 65714095 Problem Falling R29.6 Active 880871003 ALLERGIES No Information ENCOUNTERS Encounter Location Date Diagnosis [facility] [id number], [place] [address] Dec, [facility] [id number], [place] [address] Dec, [facility] [id number] [place] [address]- [address] Nov, [facility] [id number], [place] [address] Nov, [facility] [id number], [place] [address] Nov, [id number], [place] [address] Nov, [facility] [id number] [place] [address]409- 6789 Nov, [facility] [id number], [place] [address] Nov, [facility] [id number] [place] [address] 20709- 8655 Nov, [facility] [id number] [place] [address] 40365- 1820 Nov, [facility] [id number] [place] [address] 75524- 2233 Nov, [facility] [id number] [place] [address] 65896- 6478 Nov, [facility] [id number] [place] [address] 93502- 0548 Nov, Severe episode of recurrent major depressive disorder, without psychotic features F33.2 ; PTSD (post-traumatic stress disorder) F43.10 ; Panic disorder F41.0 and BMI 40.0-44.9, adult Z68.41 [facility] [id number], [place] [address] Nov, [facility] [id number] [place] [address] 66358- 4595 Nov, Essential hypertension I10 [facility] [id number], [place] [address] Nov, Severe episode of recurrent major depressive disorder, without psychotic features F33.2 [facility] [id number] [place] [address] 49973- 7860 Nov, Acute pain of left knee M25.562 [facility] [id number], [place] [address] Nov, Severe episode of recurrent major depressive disorder, without psychotic features F33.2 ; PTSD (post-traumatic stress disorder) F43.10 ; Panic disorder F41.0 and BMI 40.0-44.9, adult Z68.41 [facility] [id number] [place] [address]26- 7199 Oct, [facility] [id number], [place] [address] Oct, [facility] [id number] [place] [address] 61295- 7055 Oct, [facility] [id number] [place] [address] 31824- 4628 Oct, [facility] [id number] [place] [address] 46535- 8514 Oct, Dorsalgia, unspecified M54.9 [facility] [id number] [place] [address] 02246- 5630 Oct, Severe episode of recurrent major depressive disorder, without psychotic features F33.2 and Generalized anxiety disorder F41.1 [facility] [id number], [place] [address] Oct, [facility] [id number], [place] [address] Oct, [facility] [id number], [place] [address] Oct, [facility] [id number], [place] [address] Oct, [facility] [id number], [place] [address] Oct, [facility] [id number], [place] [address] 225[address] Oct, [facility] [id number], [place] [address] 8[address] Oct, [facility] [id number] [place] [address] 36295- 5390 Oct, [facility] [id number] [place] [address] 53671- 2166 Sep, Dorsalgia, unspecified M54.9 [facility] [id number] [place] [address] 57252- 3931 Sep, [facility] [address] [address] Sep, [facility] [id number] [place] [address] 37730- 4054 Sep, Falling R29.6 ; Essential hypertension I10 ; Chronic obstructive pulmonary disease, unspecified COPD type J44.9 and BMI 40.0-44.9, adult Z68.41 [facility] [id number] [place] [address] 46029- 7235 Sep, [facility] [id number] [place] [address] 94684- 8219 Sep, [facility] [id number] [place] [address] 99730- 9634 Sep, [facility] [id number] [place] [address] 36950- 8784 Sep, Mild intermittent asthma without complication J45.20 [facility] [id number] [place] [address] 89196- 3718 Sep, [facility] [id number] [place] [address] 53399- 1796 Sep, [facility] [id number] [place] [address] 81961- 8570 Sep, [facility] [id number] [place] [address] 11669- 0119 Sep, [facility] [id number] [place] [address] 84676- 2197 Sep, [facility] [id number], [place] [address]- 5[address] 15 Sep, 2017 [facility] [id number] [place] [address] 33419- 7478 15 Sep, 2017 Essential hypertension I10 [facility] [id number], [place] [address] 3538 15 Sep, 2017 [facility] [id number] [place] [address] 74725- 6043 15 Sep, 2017 [facility] [id number] [place] [address] 52438- 7032 15 Sep, 2017 [facility] [id number] [place] [address] 78438- 5877 14 Sep, 2017 [facility] [id number], [place] [address]- 8562 14 Sep, 2017 [facility] [id number] [place] [address] 99519- 8539 14 Sep, 2017 [facility] [id number], [place] [address]- 0933 13 Sep, 2017 [facility] [id number] [place] [address] 00218- 4363 Sep, [facility] [id number], [place] [address]- 3131 13 Sep, 2017 [facility] [id number], [place] [address]- 1649 Sep, [facility] [id number], [place] [address]- 7669 05 Sep, 2017 Mild intermittent asthma without complication J45.20 [facility] [id number], [place] [address]- 8683 August, Essential hypertension I10 [facility] [id number], [place] [address]- 6[address] August, BMI 40.0-44.9, adult Z68.41 ; Dorsalgia, unspecified M54.9 ; Allergic state, initial encounter T78.40XA ; Mild intermittent asthma without complication J45.20 and 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 [facility] [id number] [place] [address] 96338- 9965 August, [facility] [id number] [place] [address] 33175- 1839 August, [facility] [address] 94371- 2803 August, [facility] [id number] [place] [address] 89072- 7955 August, Reactive depression F32.9 [facility] [id number] [place] [address] 16982- 1624 August, [facility] [address] 25018- 3287 August, [facility] [id number] [place] [address] 54183- 2010 August, [facility] [address] 08647- 1747 August, [facility] [id number] [place] [address] 52482- 3503 August, [facility] [id number] [place] [address] 77259- 3801 August, [facility] [id number] [place] [address] 57282- 5348 August, [facility] [address] 24759- 3538 August, Muscle spasms of both lower extremities M62.838 ; Essential hypertension I10 and Reactive depression F32.9 [facility] [id number] [place] [address] 27640- 1341 August, [facility] [id number], [place] [address]- 4996 Jul, [facility] [id number], [place] [address]- 2055 Jul, [facility] [id number], [place] [address]- 5785 Jul, [facility] [id number], [place] [address]- 1541 Jul, [facility] [id number], [place] [address]- 9307 Jul, [facility] [id number], [place] [address]- 2612 Jul, [facility] [id number], [place] [address]- 7118 Jul, [facility] [id number], [place] [address]- 0498 Jul, [facility] [id number], [place] [address]- 0476 Jul, Essential hypertension I10 ; Other chronic pain G89.29 ; Dorsalgia, unspecified M54.9 ; Reactive depression F32.9 ; Mild intermittent asthma without complication J45.20 ; Allergic state, initial encounter T78.40XA and Muscle spasms of both lower extremities M62.838 IMMUNIZATIONS No Known Immunizations SOCIAL HISTORY Never Assessed REASON FOR VISIT Xanax 09/28 PLAN OF CARE VITAL SIGNS MEDICATIONS Medication [...]
--- OUTSIDE RECORDS SUMMARY | 2018-01-11 17:10 | XMS REPORT ---
Author Author ROSALINA GRAHAM Organization [facility] Address [address] [place] [address] Care Team Providers Care Insurance Sales Supervisor Name Role Phone ROSALINA GRAHAM Unavailable PROBLEMS Type Condition ICD9-CM Code [id number] Code Onset Dates Condition Status SNOMED Code Problem Essential hypertension I10 Active 19075996 Problem Other chronic pain G89.29 Active 77517473 Problem Dorsalgia, unspecified M54.9 Active 695273283 Problem Allergic state, initial encounter T78.40XA Active 101959205 Problem Reactive depression F32.9 Active 71472494 Problem Muscle spasms of both lower extremities M62.838 Active 250039426 Problem Mild intermittent asthma without complication J45.20 Active 290687866 Problem PTSD (post-traumatic stress disorder) F43.10 Active 72178845 Problem Panic disorder F41.0 Active 085713165 Problem Severe episode of recurrent major depressive disorder, without psychotic features F33.2 Active 38713979 Problem Generalized anxiety disorder F41.1 Active 73152037 Problem Chronic obstructive pulmonary disease, unspecified COPD type J44.9 Active 45107124 Problem Falling R29.6 Active 931401994 ALLERGIES No Information ENCOUNTERS Encounter Location Date Diagnosis [facility] [id number], [place] [address] Dec, [facility] [address], [place] [address] 7099 Dec, [facility] [id number] [place] [address] 05988- 7721 Nov, [facility] [address], [place] [address] 3768 Nov, [facility] [id number], [place] [address]- 9842 Nov, [address] [id number], [place] [address] 8104 Nov, [facility] [id number] [place] [address] 62627- 7036 Nov, [facility] [address], [place] [address]- 4942 Nov, [facility] [id number] [place] [address] 57520- 0760 Nov, [facility] [id number] [place] [address] 39276- 2794 Nov, [facility] [id number] [place] [address] 86963- 5112 Nov, [facility] [id number] [place] [address] 90933- 0934 Nov, [facility] [id number] [place] [address] 80381- 9206 Nov, Severe episode of recurrent major depressive disorder, without psychotic features F33.2 ; PTSD (post-traumatic stress disorder) F43.10 ; Panic disorder F41.0 and BMI 40.0-44.9, adult Z68.41 [facility] [address], [place] [address]- 7204 Nov, [facility] [id number] [place] [address] 08458- 7889 Nov, Essential hypertension I10 [facility] [address], [place] [address]- 4066 Nov, Severe episode of recurrent major depressive disorder, without psychotic features F33.2 [facility] [id number] [place] [address] 17220- 9798 Nov, Acute pain of left knee M25.562 [facility] [address], [place] [address]- 9523 Nov, Severe episode of recurrent major depressive disorder, without psychotic features F33.2 ; PTSD (post-traumatic stress disorder) F43.10 ; Panic disorder F41.0 and BMI 40.0-44.9, adult Z68.41 [facility] [id number] [place] [address] 56504- 0358 Oct, [facility] [address], [place] [address]- 0086 Oct, [facility] [id number] [place] [address] 64996- 0149 Oct, [facility] [id number] [place] [address] 97485- 9107 Oct, [facility] [id number] [place] [address] 12004- 2102 Oct, Dorsalgia, unspecified M54.9 [facility] [id number] [place] [address] 63352- 4161 Oct, Severe episode of recurrent major depressive disorder, without psychotic features F33.2 and Generalized anxiety disorder F41.1 [facility] [address], [place] [address]- 3662 Oct, [facility] [address], [place] [address]- 4736 Oct, [facility] [id number], [place] [address]- 3542 Oct, [facility] [id number], [place] [address]- 9885 Oct, [facility] [id number], [place] [address]- 8746 Oct, [facility] [id number], [place] [address]- 8978 Oct, [facility] [id number], [place] [address]- 6829 Oct, [facility] [id number] [place] [address] 02289- 8676 Oct, [facility] [id number] [place] [address] 67686- 1620 Sep, Dorsalgia, unspecified M54.9 [facility] [id number] [place] [address] 84404- 2078 Sep, [facility] [address] 75161- 8981 Sep, [facility] [id number] [place] [address] 47570- 3595 Sep, Falling R29.6 ; Essential hypertension I10 ; Chronic obstructive pulmonary disease, unspecified COPD type J44.9 and BMI 40.0-44.9, adult Z68.41 [facility] [id number] [place] [address] 35245- 2661 Sep, [facility] [id number] [place] [address] 72416- 2051 Sep, [facility] [id number] [place] [address] 24511- 0123 Sep, [facility] [id number] [place] [address] 80472- 8320 Sep, Mild intermittent asthma without complication J45.20 [facility] [id number] [place] [address] 59519- 3441 Sep, [facility] [id number] [place] [address] 30347- 9945 Sep, [facility] [id number] [place] [address] 42737- 9730 Sep, [facility] [id number] [place] [address] 70454- 3216 Sep, [facility] [id number] [place] [address] 19365- 5029 Sep, [facility] [address], [place] [address]- 1237 15 Sep, 2017 [facility] [id number] [place] [address] 57015- 4616 15 Sep, 2017 Essential hypertension I10 [facility] [address], [place] [address]- 1956 15 Sep, 2017 [facility] [id number] [place] [address] 65794- 0163 15 Sep, 2017 [facility] [id number] [place] [address] 05511- 8644 15 Sep, 2017 [facility] [id number] [place] [address] 73017- 9759 14 Sep, 2017 [facility] [address], [place] [address]- 9914 14 Sep, 2017 [facility] [id number] [place] [address] 05045- 6304 14 Sep, 2017 [facility] [address], [place] [address]- 0833 13 Sep, 2017 [facility] [id number] [place] [address] 68213- 6547 Sep, [facility] [address], [place] [address]- 0898 13 Sep, 2017 [facility] [address], [place] [address]- 1355 Sep, [facility] [address], [place] [address]- 0413 05 Sep, 2017 Mild intermittent asthma without complication J45.20 [facility] [address], [place] [address]- 0332 August, Essential hypertension I10 [facility] [address], [place] [address]- 9933 August, BMI 40.0-44.9, adult Z68.41 ; Dorsalgia, unspecified M54.9 ; Allergic state, initial encounter T78.40XA ; Mild intermittent asthma without complication J45.20 and 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 [facility] [id number] [place] [address] 42013- 4637 August, [facility] [id number] [place] [address] 27158- 5527 August, [facility] [address] 76302- 5097 August, [facility] [id number] [place] [address] 36988- 2449 August, Reactive depression F32.9 [facility] [id number] [place] [address] 54322- 3002 August, [facility] [address] 35822- 8423 August, [facility] [id number] [place] [address] 85698- 6397 August, [facility] [address] 68877- 6869 August, [facility] [id number] [place] [address] 98539- 6007 August, [facility] [id number] [place] [address] 87630- 7490 August, [facility] [id number] [place] [address] 62777- 0528 August, [facility] [address] 89092- 6766 August, Muscle spasms of both lower extremities M62.838 ; Essential hypertension I10 and Reactive depression F32.9 [facility] [id number] [place] [address] 65768- 3815 August, [facility] [address], [place] [address]- 8543 Jul, [facility] [address], [place] [address]- 4293 Jul, [facility] [address], [place] [address]- 0641 Jul, [facility] [address], [place] [address]- 0467 Jul, [facility] [address], [place] [address]- 3882 Jul, [facility] [address], [place] [address]- 4406 Jul, [facility] [address], [place] [address]- 7711 Jul, [facility] [address], [place] [address]- 8667 Jul, [facility] [id number], [place] [address]- 6364 Jul, Essential hypertension I10 ; Other chronic [...]
--- OUTSIDE RECORDS SUMMARY | 2018-01-11 17:11 | XMS REPORT ---
Author Author ROSALINA GRAHAM Organization [facility] Address [address] [place] [address] Care Team Providers Care Damage Prevention Coordinator Name Role Phone ROSALINA GRAHAM Unavailable PROBLEMS Type Condition ICD9-CM Code [id number] Code Onset Dates Condition Status SNOMED Code Problem Essential hypertension I10 Active 41626530 Problem Other chronic pain G89.29 Active 62070525 Problem Dorsalgia, unspecified M54.9 Active 560919763 Problem Allergic state, initial encounter T78.40XA Active 926049452 Problem Reactive depression F32.9 Active 31335313 Problem Muscle spasms of both lower extremities M62.838 Active 701050439 Problem Mild intermittent asthma without complication J45.20 Active 443789652 Problem PTSD (post-traumatic stress disorder) F43.10 Active 16364814 Problem Panic disorder F41.0 Active 368138910 Problem Severe episode of recurrent major depressive disorder, without psychotic features F33.2 Active 34181742 Problem Generalized anxiety disorder F41.1 Active 60113801 Problem Chronic obstructive pulmonary disease, unspecified COPD type J44.9 Active 97461605 Problem Falling R29.6 Active 738876724 ALLERGIES No Information ENCOUNTERS Encounter Location Date Diagnosis [facility] [id number], [place] [address]- 8029 Dec, [facility] [address], [place] [address]- 4037 Dec, [facility] [id number] [place] [address] 57534- 4527 Nov, [facility] [address], [place] [address]- 7817 Nov, [facility] [id number], [place] [address]- 9051 Nov, [place], [place] [address]- 4302 Nov, [facility] [id number] [place] [address] 40412- 9048 Nov, [facility] [address], [place] [address]- 3666 Nov, [facility] [id number] [place] [address] 25020- 9990 Nov, [facility] [id number] [place] [address] 19794- 1954 Nov, [facility] [id number] [place] [address] 56675- 6367 Nov, [facility] [id number] [place] [address] 66490- 2954 Nov, [facility] [id number] [place] [address] 13101- 4709 Nov, Severe episode of recurrent major depressive disorder, without psychotic features F33.2 ; PTSD (post-traumatic stress disorder) F43.10 ; Panic disorder F41.0 and BMI 40.0-44.9, adult Z68.41 [facility] [address], [place] [address]- 1197 Nov, [facility] [id number] [place] [address] 73695- 3071 Nov, Essential hypertension I10 [facility] [address], [place] [address]- 1468 Nov, Severe episode of recurrent major depressive disorder, without psychotic features F33.2 [facility] [id number] [place] [address] 18827- 4783 Nov, Acute pain of left knee M25.562 [facility] [address], [place] [address]- 4754 Nov, Severe episode of recurrent major depressive disorder, without psychotic features F33.2 ; PTSD (post-traumatic stress disorder) F43.10 ; Panic disorder F41.0 and BMI 40.0-44.9, adult Z68.41 [facility] [id number] [place] [address] 42136- 0252 Oct, [facility] [address], [place] [address]- 7333 Oct, [facility] [id number] [place] [address] 50800- 4255 Oct, [facility] [id number] [place] [address] 10216- 5216 Oct, [facility] [id number] [place] [address] 43873- 6561 Oct, Dorsalgia, unspecified M54.9 [facility] [id number] [place] [address] 55721- 2734 Oct, Severe episode of recurrent major depressive disorder, without psychotic features F33.2 and Generalized anxiety disorder F41.1 [facility] [address], [place] [address]- 1550 Oct, [facility] [address], [place] [address]- 4427 Oct, [facility] [id number], [place] [address]- 6700 Oct, [facility] [id number], [place] [address]- 8041 Oct, [facility] [id number], [place] [address]- 3226 Oct, [facility] [id number], [place] [address]- 3686 Oct, [facility] [id number], [place] [address]- 9358 Oct, [facility] [id number] [place] [address] 68060- 4033 Oct, [facility] [id number] [place] [address] 22013- 2812 Sep, Dorsalgia, unspecified M54.9 [facility] [id number] [place] [address] 18910- 2423 Sep, [facility] [address] 61890- 9918 Sep, [facility] [id number] [place] [address] 95239- 9875 Sep, Falling R29.6 ; Essential hypertension I10 ; Chronic obstructive pulmonary disease, unspecified COPD type J44.9 and BMI 40.0-44.9, adult Z68.41 [facility] [id number] [place] [address] 24088- 4963 Sep, [facility] [id number] [place] [address] 90335- 5836 Sep, [facility] [id number] [place] [address] 14832- 4592 Sep, [facility] [id number] [place] [address] 91715- 8670 Sep, Mild intermittent asthma without complication J45.20 [facility] [id number] [place] [address] 41754- 9009 Sep, [facility] [id number] [place] [address] 62653- 0207 Sep, [facility] [id number] [place] [address] 95624- 1183 Sep, [facility] [id number] [place] [address] 51764- 5390 Sep, [facility] [id number] [place] [address] 93129- 8670 Sep, [facility] [address], [place] [address]- 9621 15 Sep, 2017 [facility] [id number] [place] [address] 13693- 2251 15 Sep, 2017 Essential hypertension I10 [facility] [address], [place] [address]- 9999 15 Sep, 2017 [facility] [id number] [place] [address] 55768- 4467 15 Sep, 2017 [facility] [id number] [place] [address] 34901- 8725 15 Sep, 2017 [facility] [id number] [place] [address] 84351- 4021 14 Sep, 2017 [facility] [address], [place] [address]- 7088 14 Sep, 2017 [facility] [id number] [place] [address] 20961- 8019 14 Sep, 2017 [facility] [address], [place] [address]- 9802 13 Sep, 2017 [facility] [id number] [place] [address] 82296- 1518 Sep, [facility] [address], [place] [address]- 6350 13 Sep, 2017 [facility] [address] [address]- 2995 Sep, [facility] [address] [address]- 7542 05 Sep, 2017 Mild intermittent asthma without complication J45.20 [facility] [address], [place] [address]- 5958 August, Essential hypertension I10 [facility] [address], [place] [address]- 3193 August, BMI 40.0-44.9, adult Z68.41 ; Dorsalgia, unspecified M54.9 ; Allergic state, initial encounter T78.40XA ; Mild intermittent asthma without complication J45.20 and 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 [facility] [id number] [place] [address] 92226- 5775 August, [facility] [id number] [place] [address] 39595- 5923 August, [facility] [address] 68700- 5154 August, [facility] [id number] [place] [address] 37562- 0005 August, Reactive depression F32.9 [facility] [id number] [place] [address] 44128- 0186 August, [facility] [address] 79429- 6719 August, [facility] [id number] [place] [address] 54481- 1496 August, [facility] [address] 08309- 4397 August, [facility] [id number] [place] [address] 58277- 7509 August, [facility] [id number] [place] [address] 56836- 3963 August, [facility] [id number] [place] [address] August, [facility] [address] [address] August, Muscle spasms of both lower extremities M62.838 ; Essential hypertension I10 and Reactive depression F32.9 [facility] [id number] [place] [address] August, [facility] [id number] [address] Jul, [facility] [id number] [address] Jul, [facility] [id number] [address] Jul, [facility] [id number] [address] Jul, [facility] [id number] [address] Jul, [facility] [id number] [address] Jul, [facility] [id number] [address] Jul, [facility] [id number] [address] Jul, [facility] [id number] [address] Jul, Essential hypertension I10 ; Other chronic pain G89.29 ; Dorsalgia, unspecified M54.9 ; Reactive depression F32.9 ; Mild intermittent asthma without complication J45.20 ; Allergic state, initial encounter T78.40XA and Muscle spasms of both lower extremities M62.838 IMMUNIZATIONS No Known Immunizations SOCIAL HISTORY Never Assessed REASON FOR VISIT Back Spasm / Allergies PLAN OF CARE VITAL SIGNS MEDICATIONS Unknown [...]
--- OUTSIDE RECORDS SUMMARY | 2018-01-11 17:11 | XMS REPORT ---
Author Author ROSALINA GRAHAM Organization [facility] Address [address] [place] [address] Care Team Providers Care Gold Leaf Laborer Name Role Phone ROSALINA GRAHAM Unavailable PROBLEMS Type Condition ICD9-CM Code QSQ60-SP Code Onset Dates Condition Status SNOMED Code Problem Essential hypertension I10 Active 16297045 Problem Other chronic pain G89.29 Active 17043511 Problem Dorsalgia, unspecified M54.9 Active 933620141 Problem Allergic state, initial encounter T78.40XA Active 451822606 Problem Reactive depression F32.9 Active 87234473 Problem Muscle spasms of both lower extremities M62.838 Active 628236595 Problem Mild intermittent asthma without complication J45.20 Active 063428824 Problem PTSD (post-traumatic stress disorder) F43.10 Active 35162989 Problem Panic disorder F41.0 Active 436833878 Problem Severe episode of recurrent major depressive disorder, without psychotic features F33.2 Active 45214406 Problem Generalized anxiety disorder F41.1 Active 35147130 Problem Chronic obstructive pulmonary disease, unspecified COPD type J44.9 Active 50601896 Problem Falling R29.6 Active 553494957 ALLERGIES No Information ENCOUNTERS Encounter Location Date Diagnosis [facility] [id number] [address] Dec, [facility] [address], [place] [address] 8[address] Dec, [facility] [id number] [place] [address] 07712- 8038 Nov, [facility] [address], [place] [address] Nov, [facility] [id number], [place] [address] 3764 Nov, [place] [address], [place] [address] 1030 Nov, [facility] [address], [place] [address] 3370 Nov, [facility] [address], [place] [address] 1460 Nov, [facility] [id number] [place] [address] 97069- 6896 Nov, [facility] [id number] [place] [address] 55395- 0175 Nov, [facility] [id number] [place] [address] 04286- 5421 Nov, [facility] [address] [address] 79[address] Nov, Severe episode of recurrent major depressive disorder, without psychotic features F33.2 ; PTSD (post-traumatic stress disorder) F43.10 ; Panic disorder F41.0 and BMI 40.0-44.9, adult Z68.41 [facility] [address], [place] [address] 6[address] Nov, [facility] [address], [place] [address]- 6902 Nov, Essential hypertension I10 [facility] [address], [place] [address] 7484 Nov, Severe episode of recurrent major depressive disorder, without psychotic features F33.2 [facility] [address], [place] [address] 6593 Nov, Acute pain of left knee M25.562 [facility] [address], [place] [address] 6572 Nov, Severe episode of recurrent major depressive disorder, without psychotic features F33.2 ; PTSD (post-traumatic stress disorder) F43.10 ; Panic disorder F41.0 and BMI 40.0-44.9, adult Z68.41 [facility] [address] [facility] [id number] [place] [address]- 4304 Oct, [facility] [address] [facility] [id number] [place] [address]- 1886 Oct, [facility] [id number] [place] [address]- 7628 Oct, [facility] [address] [facility] [id number] [place] [address]- 7891 Oct, [facility] [address] [facility] [id number] [place] [address]- 2333 Oct, Dorsalgia, unspecified M54.9 [facility] [id number] [place] [address]- 9546 Oct, Severe episode of recurrent major depressive disorder, without psychotic features F33.2 and Generalized anxiety disorder F41.1 [facility] [address] [place] [address]- 3589 Oct, [facility] [id number] [place] [address]- 1977 Oct, [facility] [id number] [place] [address]- 3842 Oct, [facility] [address], [place] [address]- 7282 Oct, [facility] [id number], [place] [address]- 2388 Oct, [facility] [id number] [place] [address]- 4215 Oct, [facility] [address] [facility] [id number] [address] 5[address] Oct, [facility] [id number] [place] [address]- 3003 Oct, [facility] [id number] [place] [address] 45970- 4556 Sep, Dorsalgia, unspecified M54.9 [facility] [address] [address]- 5627 Sep, [facility] [id number] [place] [address] 98811- 8321 Sep, [facility] [address] [address]- 3523 Sep, Falling R29.6 ; Essential hypertension I10 ; Chronic obstructive pulmonary disease, unspecified COPD type J44.9 and BMI 40.0-44.9, adult Z68.41 [facility] [id number] [place] [address] 28714- 7141 Sep, [facility] [id number] [place] [address] 39822- 8483 Sep, [facility] [id number] [place] [address] 32448- 2737 Sep, [facility] [id number] [place] [address] 66787- 4267 Sep, Mild intermittent asthma without complication J45.20 [facility] [id number] [place] [address] 52039- 7519 Sep, [facility] [id number] [place] [address] 85197- 4804 Sep, [facility] [id number] [place] [address] 74261- 7180 Sep, [facility] [id number] [place] [address] 33470- 3645 Sep, [facility] [id number] [place] [address] 51516- 6153 Sep, [facility] [id number] [place] [address] 09701- 1415 15 Sep, 2017 [facility] [address], [place] [address]- 4575 15 Sep, 2017 Essential hypertension I10 [facility] [address] [place] [address] 33689- 4940 15 Sep, 2017 [facility] [address], [place] [address]- 2453 15 Sep, 2017 [facility] [id number] [place] [address] 04494- 1184 15 Sep, 2017 [facility] [address] [place] [address] 03202- 6489 14 Sep, 2017 [facility] [address] [place] [address] 11124- 2933 14 Sep, 2017 [facility] [address] [place] [address] 11312- 3914 14 Sep, 2017 [facility] [address] [place] [address] 04492- 1782 Sep, [facility] [address], [place] [address]- 5630 Sep, [facility] [address] [place] [address] 00547- 4371 Sep, [facility] [address] [address]- 5188 Sep, [facility] [address] [place] [address] 47148- 7153 Sep, Mild intermittent asthma without complication J45.20 [facility] [address] [address]- 5003 August, Essential hypertension I10 [facility] [address], [place] [address]- 5719 August, BMI 40.0-44.9, adult Z68.41 ; Dorsalgia, unspecified M54.9 ; Allergic state, initial encounter T78.40XA ; Mild intermittent asthma without complication J45.20 and 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 [facility] [id number] [place] [address] 17207- 8032 August, [facility] [id number] [place] [address] 34947- 3830 August, [facility] [id number] [place] [address] 91039- 4040 August, [facility] [id number] [place] [address] 61748- 7547 August, Reactive depression F32.9 [facility] [address] 346[address]- 8138 August, [facility] [id number] [place] [address] 11565- 1447 August, [facility] [id number] [place] [address] 12001- 2342 August, [facility] [id number] [place] [address] 93613- 6492 August, [facility] [id number] [place] [address] 80454- 9935 August, [facility] [id number] [place] [address] 91926- 1764 August, [facility] [id number] [place] [address] 65383- 6015 August, [facility] [id number] [place] [address] 13320- 1144 August, Muscle spasms of both lower extremities M62.838 ; Essential hypertension I10 and Reactive depression F32.9 [facility] [id number] [place] [address] 09217- 3689 August, [facility] [id number] [place] [address] 98541- 3802 Jul, [facility] [id number] [address]- 4709 Jul, [facility] [address], [place] [address]- 3359 Jul, [facility] [address] [address]- 1595 Jul, [facility] [address] [address]- 1637 Jul, [facility] [address], [place] [address]- 1089 Jul, [facility] [address], [place] [address]- 8389 Jul, [facility] [address] [address]- 3979 Jul, [facility] [address] [address]- 2637 Jul, Essential hypertension I10 ; Other chronic pain G89.29 ; Dorsalgia, unspecified M54.9 ; Reactive depression F32.9 ; Mild intermittent asthma without complication J45.20 ; Allergic state, initial encounter T78.40XA and Muscle spasms of both lower extremities M62.838 IMMUNIZATIONS No Known Immunizations SOCIAL HISTORY Never Assessed REASON FOR VISIT Allergies PLAN OF CARE VITAL SIGNS MEDICATIONS [...]
--- OUTSIDE RECORDS SUMMARY | 2018-01-11 17:11 | XMS REPORT ---
Author Author ROSALINA GRAHAM [facility] Address [address] [place] [address] Care Team Providers Care Neon Sign Maker Name Role Phone ROSALINA GRAHAM Unavailable PROBLEMS Type Condition ICD9-CM Code MGR16-EN Code Onset Dates Condition Status SNOMED Code Problem Essential hypertension I10 Active 48123445 Problem Other chronic pain G89.29 Active 76213144 Problem Dorsalgia, unspecified M54.9 Active 132923393 Problem Allergic state, initial encounter T78.40XA Active 056013426 Problem Reactive depression F32.9 Active 80089053 Problem Muscle spasms of both lower extremities M62.838 Active 184508274 Problem Mild intermittent asthma without complication J45.20 Active 709606006 Problem PTSD (post-traumatic stress disorder) F43.10 Active 57972574 Problem Panic disorder F41.0 Active 500005479 Problem Severe episode of recurrent major depressive disorder, without psychotic features F33.2 Active 63905726 Problem Generalized anxiety disorder F41.1 Active 79101049 Problem Chronic obstructive pulmonary disease, unspecified COPD type J44.9 Active 44855794 Problem Falling R29.6 Active 110638034 ALLERGIES No Known Allergies ENCOUNTERS Encounter Location Date Diagnosis [facility] [id number] [address]- 1515 Dec, [facility] [address] [address]- 0881 Dec, [facility] [address] [address]- 9380 Nov, [facility] [address], [place] [address]- 4405 Nov, [facility] [id number] [address]- 4910 Nov, [facility] [address], [place] [address]- 9988 Nov, [facility] [address], [place] [address]- 0518 Nov, [facility] [address] [address]- 4926 Nov, [facility] [id number] [place] [address] 70033- 9725 Nov, [facility] [address] [place] [address] 29534- 1300 Nov, [facility] [id number] [place] [address] 44507- 7681 Nov, [facility] [address] [place] [address] 50926- 3049 Nov, [facility] [address] [place] [address] 78675- 3153 Nov, Severe episode of recurrent major depressive disorder, without psychotic features F33.2 ; PTSD (post-traumatic stress disorder) F43.10 ; Panic disorder F41.0 and BMI 40.0-44.9, adult Z68.41 [facility] [address] [address]- 0759 Nov, [facility] [address] [address]- 8825 Nov, Essential hypertension I10 [facility] [address], [place] [address]- 4478 Nov, Severe episode of recurrent major depressive disorder, without psychotic features F33.2 [facility] [address] [place] [address] 95548- 2275 Nov, Acute pain of left knee M25.562 [facility] [address] [address]- 3963 Nov, Severe episode of recurrent major depressive disorder, without psychotic features F33.2 ; PTSD (post-traumatic stress disorder) F43.10 ; Panic disorder F41.0 and BMI 40.0-44.9, adult Z68.41 [facility] [id number] [place] [address] 22837- 9882 Oct, [facility] [id number] [address]- 8126 Oct, [facility] [id number] [place] [address] 21095- 3341 Oct, [facility] [id number] [address]- 3689 Oct, [facility] [id number] [place] [address] 43915- 3458 Oct, Dorsalgia, unspecified M54.9 [facility] [id number] [place] [address] 51375- 6293 Oct, Severe episode of recurrent major depressive disorder, without psychotic features F33.2 and Generalized anxiety disorder F41.1 [facility] [id number] [address]- 6372 Oct, [facility] [id number] [address]- 0287 Oct, [facility] [id number], [place] [address]- 1600 Oct, [facility] [id number] [address]- 9925 Oct, [facility] [id number] [address]- 7256 Oct, [facility] [id number] [address]- 4734 Oct, [facility] [id number], [place] [address]- 8791 Oct, [facility] [id number] [place] [address] 71140- 6050 Oct, [facility] [id number] [place] [address] 91861- 1107 Sep, Dorsalgia, unspecified M54.9 [facility] [id number] [place] [address] 07589- 7992 Sep, [facility] [address] 79497- 9646 Sep, [facility] [id number] [place] [address] 43040- 1492 Sep, Falling R29.6 ; Essential hypertension I10 ; Chronic obstructive pulmonary disease, unspecified COPD type J44.9 and BMI 40.0-44.9, adult Z68.41 [facility] [id number] [place] [address] 07903- 1132 Sep, [facility] [id number] [place] [address] 13409- 4521 Sep, [facility] [id number] [place] [address] 56629- 7701 Sep, [facility] [id number] [place] [address] 38823- 0823 Sep, Mild intermittent asthma without complication J45.20 [facility] [id number] [place] [address] 70767- 6929 Sep, [facility] [id number] [place] [address] 79092- 4555 Sep, [facility] [id number] [place] [address] 04794- 2108 Sep, [facility] [id number] [place] [address] 38714- 3532 Sep, [facility] [id number] [place] [address] 77631- 4245 Sep, [facility] [address] [address]- 8402 15 Sep, 2017 [facility] [address] [address]- 5512 15 Sep, 2017 Essential hypertension I10 [facility] [address], [place] [address]- 6990 15 Sep, 2017 [facility] [address] [place] [address] 49295- 5609 15 Sep, 2017 [facility] [id number] [place] [address]- 1076 15 Sep, 2017 [facility] [id number] [place] [address]- 1312 14 Sep, 2017 [facility] [address], [place] [address]- 4602 14 Sep, 2017 [facility] [address] [address]- 7403 14 Sep, 2017 [facility] [address] [address]- 7343 13 Sep, 2017 [facility] [address] [address]- 4666 Sep, [facility] [address] [address]- 8140 13 Sep, 2017 [facility] [address] [address]- 9561 Sep, [facility] [address] [address]- 9633 05 Sep, 2017 Mild intermittent asthma without complication J45.20 [facility] [address], [place] [address]- 4981 August, Essential hypertension I10 [facility] [address], [place] [address]- 1150 August, BMI 40.0-44.9, adult Z68.41 ; Dorsalgia, unspecified M54.9 ; Allergic state, initial encounter T78.40XA ; Mild intermittent asthma without complication J45.20 and 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 [facility] [id number] [place] [address] 74648- 3525 August, [facility] [id number] [place] [address] 17744- 1612 August, [facility] [address] 77271- 4997 August, [facility] [id number] [place] [address] 42994- 7630 August, Reactive depression F32.9 [facility] [id number] [place] [address] 00880- 8309 August, [facility] [address] 24223- 9457 August, [facility] [id number] [place] [address] 94694- 6309 August, [facility] [id number] [place] [address] 11783- 5078 August, [facility] [id number] [place] [address] 40801- 3826 August, [facility] [id number] [place] [address] 50786- 2204 August, [facility] [id number] [place] [address] 52724- 9227 August, [facility] [address] 54295- 0463 August, Muscle spasms of both lower extremities M62.838 ; Essential hypertension I10 and Reactive depression F32.9 [facility] [id number] [place] [address] 38797- 6559 August, [facility] [address] [address]- 7903 Jul, [facility] [address] [address]- 0676 Jul, [facility] [address] [address]- 7723 Jul, [facility] [address], [place] [address]- 5304 Jul, [facility] [address], [place] [address]- 0499 Jul, [facility] [address] [place] [address] 26100- 8397 Jul, [facility] [address] [place] [address] 38912- 4493 Jul, [facility] [id number] [place] [address] 95080- 5290 Jul, [facility] [address], [place] [address]- 2026 Jul, Essential hypertension I10 ; Other chronic pain G89.29 ; Dorsalgia, unspecified M54.9 ; Reactive depression F32.9 ; Mild intermittent asthma without complication J45.20 ; Allergic state, initial encounter T78.40XA and Muscle spasms of both lower extremities M62.838 IMMUNIZATIONS Vaccine Route Administration Date Status DEPO MEDROL 80 MG/ML IM Intramuscular September 10, 2017 Administered SOCIAL HISTORY Never Assessed REASON FOR VISIT Concerns with lump - MPeters, Back Pain PLAN OF CARE Activity Details Follow Up 3 Months Reason: VITAL SIGNS Height 66 in 2017-09-10 Weight 265 lbs 2017-09-10 Temperature 98.2 degrees Fahrenheit 2017-09-10 Heart Rate 80 bpm 2017-09-10 Respiratory Rate 20 2017-09-10 BMI 42.77 kg/m2 2017-09-10 Blood pressure systolic 116 mmHg 2017-09-10 Blood pressure diastolic 92 mmHg 2017-09-10 MEDICATIONS Medication Instructions Dosage Frequency Start Date End Date Duration Status Losartan Potassium 100 mg Orally Once a day 1 tablet 24h Active Cyclobenzaprine HCl 10 mg Orally Three times a day 1 tablet as needed 8h Active Gabapentin 300 MG Orally Once a day 1 capsule before bedtime 24h Active Flonase Allergy Relief 50 MCG/ACT Nasally Once a day 1 spray in each nostril 24h Active Zoloft 100 mg Orally Once a day 1 tablet 24h Active Allergy 12 MG Orally every 12 hrs 1 tablet as needed 12h Active Singulair 10 MG Orally Once a day 1 tablet in the evening 24h Active Atenolol 25 MG Orally Once a day 2 tablet 24h Active Lovastatin 20 MG Orally Once a day 2 tablet 24h Jul, Active Symbicort 160-4.5 MCG/ACT Inhalation Twice a day 2 puffs 12h Active Levalbuterol Tartrate 45 MCG/ACT Inhalation 4 times a day 1 puff as needed 6h Active Xanax XR 1 MG Orally Once a day 1 tablet in the morning 24h 28 days Active RESULTS No Results PROCEDURES Procedure Date Ordered Result Body Site DEPO MEDROL 80 MG/ML September 10, 2017 THER/PROPH/DIAG INJ, SC/IM September 10, 2017 INSTRUCTIONS MEDICATIONS ADMINISTERED No Known Medications [...]
--- OUTSIDE RECORDS SUMMARY | 2018-01-11 17:11 | XMS REPORT ---
Author Author ROSALINA GRAHAM Organization [facility] Address [address] [place] [address] Care Team Providers Care Undercutter Operator Name Role Phone ROSALINA GRAHAM Unavailable PROBLEMS Type Condition ICD9-CM Code [id number] Code Onset Dates Condition Status SNOMED Code Problem Essential hypertension I10 Active 61721554 Problem Other chronic pain G89.29 Active 42537802 Problem Dorsalgia, unspecified M54.9 Active 673660290 Problem Allergic state, initial encounter T78.40XA Active 614155390 Problem Reactive depression F32.9 Active 10772881 Problem Muscle spasms of both lower extremities M62.838 Active 641311467 Problem Mild intermittent asthma without complication J45.20 Active 214725973 Problem PTSD (post-traumatic stress disorder) F43.10 Active 42222012 Problem Panic disorder F41.0 Active 313669275 Problem Severe episode of recurrent major depressive disorder, without psychotic features F33.2 Active 40124488 Problem Generalized anxiety disorder F41.1 Active 89730447 Problem Chronic obstructive pulmonary disease, unspecified COPD type J44.9 Active 72139210 Problem Falling R29.6 Active 573779136 ALLERGIES No Information ENCOUNTERS Encounter Location Date Diagnosis [facility] [id number] [address] Dec, [facility] [address] [address] Dec, [facility] [address] [place] [address] 48758- 1437 Nov, [facility] [address] [address]- 2285 Nov, [facility] [id number] [address]- 7767 Nov, [place] [id number] [address]- 8958 Nov, [facility] [address] [address]- 7357 Nov, [facility] [address] [address]- 9638 Nov, [facility] [address] [place] [address] 80607- 5221 Nov, [facility] [address] [place] [address] 65936- 6143 Nov, [facility] [address] [place] [address] 37335- 4656 Nov, [facility] [address] [address] Nov, Severe episode of recurrent major depressive disorder, without psychotic features F33.2 ; PTSD (post-traumatic stress disorder) F43.10 ; Panic disorder F41.0 and BMI 40.0-44.9, adult Z68.41 [facility] [address] [address]- 1434 Nov, [facility] [address] [address]- 2900 Nov, Essential hypertension I10 [facility] [address] [address]- 9448 Nov, Severe episode of recurrent major depressive disorder, without psychotic features F33.2 [facility] [address] [address] 3815 Nov, Acute pain of left knee M25.562 [facility] [address] [address]- 7845 Nov, Severe episode of recurrent major depressive disorder, without psychotic features F33.2 ; PTSD (post-traumatic stress disorder) F43.10 ; Panic disorder F41.0 and BMI 40.0-44.9, adult Z68.41 [facility] [address] [facility] [id number] [place] [address] 3428 Oct, [facility] [address] [facility] [id number] [place] [address]- 9256 Oct, [facility] [id number] [place] [address]- 5722 Oct, [facility] [address] [facility] [id number] [place] [address]- 1018 Oct, [facility] [address] [facility] [id number] [place] [address]- 8498 Oct, Dorsalgia, unspecified M54.9 [facility] [id number] [place] [address]- 6984 Oct, Severe episode of recurrent major depressive disorder, without psychotic features F33.2 and Generalized anxiety disorder F41.1 [facility] [address] [place] [address]- 4005 Oct, [facility] [id number] [place] [address]- 7965 Oct, [facility] [id number] [place] [address]- 2603 Oct, [facility] [address] [address]- 4174 Oct, [facility] [id number] [address]- 7556 Oct, [facility] [id number] [place] [address]- 6603 Oct, [facility] [address] [facility] [id number] [address]- 7728 Oct, [facility] [id number] [place] [address]- 2074 Oct, [facility] [id number] [place] [address] 11683- 2934 Sep, Dorsalgia, unspecified M54.9 [facility] [address] [address]- 3984 Sep, [facility] [id number] [place] [address] 28650- 0435 Sep, [facility] [address] 56398- 6384 Sep, Falling R29.6 ; Essential hypertension I10 ; Chronic obstructive pulmonary disease, unspecified COPD type J44.9 and BMI 40.0-44.9, adult Z68.41 [facility] [id number] [place] [address] 88627- 8444 Sep, [facility] [id number] [place] [address] 21071- 8180 Sep, [facility] [id number] [place] [address] 99176- 9963 Sep, [facility] [id number] [place] [address] 20118- 3376 Sep, Mild intermittent asthma without complication J45.20 [facility] [id number] [place] [address] 31470- 7884 Sep, [facility] [id number] [place] [address] 31753- 2287 Sep, [facility] [id number] [place] [address] 46866- 8827 Sep, [facility] [id number] [place] [address] 27506- 0438 Sep, [facility] [id number] [place] [address] 34822- 4635 Sep, [facility] [id number] [place] [address] 03602- 3816 15 Sep, 2017 [facility] [address] [address]- 6157 15 Sep, 2017 Essential hypertension I10 [facility] [address] [place] [address] 97646- 0601 15 Sep, 2017 [facility] [address] [address]- 3302 15 Sep, 2017 [facility] [id number] [place] [address] 14497- 3945 15 Sep, 2017 [facility] [address] [place] [address] 43960- 5538 14 Sep, 2017 [facility] [address] [place] [address] 38461- 8753 14 Sep, 2017 [facility] [address] [place] [address] 38709- 1508 14 Sep, 2017 [facility] [address] [place] [address] 84181- 0231 Sep, [facility] [address] [address]- 8407 Sep, [facility] [address] [place] [address] 34642- 6674 Sep, [facility] [address] [address]- 6066 Sep, [facility] [address] [place] [address] 52994- 5471 Sep, Mild intermittent asthma without complication J45.20 [facility] [address] [address]- 1424 August, Essential hypertension I10 [facility] [address] [address]- 6966 August, BMI 40.0-44.9, adult Z68.41 ; Dorsalgia, unspecified M54.9 ; Allergic state, initial encounter T78.40XA ; Mild intermittent asthma without complication J45.20 and 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 [facility] [id number] [place] [address] 79864- 1785 August, [facility] [id number] [place] [address] 92498- 8505 August, [facility] [id number] [place] [address] 37266- 3659 August, [facility] [id number] [place] [address] 94124- 1062 August, Reactive depression F32.9 [facility] [address] 60714- 2500 August, [facility] [id number] [place] [address] 54039- 7301 August, [facility] [id number] [place] [address] 88225- 7500 August, [facility] [id number] [place] [address] 00952- 2552 August, [facility] [id number] [place] [address] 78230- 3367 August, [facility] [id number] [place] [address] 91272- 4380 August, [facility] [id number] [place] [address] 24026- 5279 August, [facility] [id number] [place] [address] 35181- 8051 August, Muscle spasms of both lower extremities M62.838 ; Essential hypertension I10 and Reactive depression F32.9 [facility] [id number] [place] [address] 02766- 8571 August, [facility] [id number] [place] [address] 89055- 4603 Jul, [facility] [id number] [address]- 3614 Jul, [facility] [address] [address]- 2768 Jul, [facility] [address] [address]- 3701 Jul, [facility] [address] [address]- 4171 Jul, [facility] [address] [address]- 7386 Jul, [facility] [address] [address]- 8577 Jul, [facility] [address] [address]- 7933 Jul, [facility] [address] [address]- 1333 Jul, Essential hypertension I10 ; Other chronic pain G89.29 ; Dorsalgia, unspecified M54.9 ; Reactive depression F32.9 ; Mild intermittent asthma without complication J45.20 ; Allergic state, initial encounter T78.40XA and Muscle spasms of both lower extremities M62.838 IMMUNIZATIONS No Known Immunizations SOCIAL HISTORY Never Assessed REASON FOR VISIT Refill request PLAN OF CARE VITAL SIGNS MEDICATIONS Medication Instructions Dosage Frequency Start Date End Date Duration Status Singulair 10 mg Orally Once a day 1 tablet 24h Active Atenolol 50 MG Orally Once a day 1 tablet 24h Active Losartan Potassium 100 mg Orally Once a day 1 tablet 24h Active Zoloft 100 mg Orally Once a day 1 tablet 24h Active Gabapentin 300 MG Orally twice a day 1 capsule 12h Active RESULTS No Results PROCEDURES No Known [...]
--- OUTSIDE RECORDS SUMMARY | 2018-01-11 17:12 | XMS REPORT ---
Author Author ROSALINA GRAHAM Organization [facility] Address [address] [place] [address] Care Team Providers Care Kindergarten Aide Name Role Phone ROSALINA GRAHAM Unavailable PROBLEMS Type Condition ICD9-CM Code LFN90-KB Code Onset Dates Condition Status SNOMED Code Problem Essential hypertension I10 Active 35674652 Problem Other chronic pain G89.29 Active 11180953 Problem Dorsalgia, unspecified M54.9 Active 316617407 Problem Allergic state, initial encounter T78.40XA Active 614396470 Problem Reactive depression F32.9 Active 04992271 Problem Muscle spasms of both lower extremities M62.838 Active 770412126 Problem Mild intermittent asthma without complication J45.20 Active 173712310 Problem PTSD (post-traumatic stress disorder) F43.10 Active 44772289 Problem Panic disorder F41.0 Active 104127974 Problem Severe episode of recurrent major depressive disorder, without psychotic features F33.2 Active 53050809 Problem Generalized anxiety disorder F41.1 Active 14276586 Problem Chronic obstructive pulmonary disease, unspecified COPD type J44.9 Active 88978849 Problem Falling R29.6 Active 150613241 ALLERGIES No Information ENCOUNTERS Encounter Location Date Diagnosis [facility] [id number], [place] [address]- 9426 Dec, [facility] [address], [place] [address]- 5600 Nov, [facility] [address] [place] [address] 87780- 8419 Nov, [facility] [address] [place] [address] 86494- 2843 Nov, [facility] [id number] [address]- 1910 Nov, Essential hypertension I10 [facility] [address] [place] [address] 00940- 7222 Nov, Severe episode of recurrent major depressive disorder, without psychotic features F33.2 [facility] [id number] [place] [address] 32814- 9526 Nov, Acute pain of left knee M25.562 [facility] [id number] [place] [address] 36331- 1817 Nov, Severe episode of recurrent major depressive disorder, without psychotic features F33.2 ; PTSD (post-traumatic stress disorder) F43.10 ; Panic disorder F41.0 and BMI 40.0-44.9, adult Z68.41 [facility] [id number] [place] [address] 52081- 9864 Oct, [facility] [id number] [place] [address] 70988- 9454 Oct, [facility] [id number] [place] [address] 36585- 7966 Oct, [facility] [id number] [place] [address] 28978- 0332 Oct, [facility] [id number] [place] [address] 87907- 3606 Oct, Dorsalgia, unspecified M54.9 [facility] [id number] [place] [address] 25965- 3723 Oct, Severe episode of recurrent major depressive disorder, without psychotic features F33.2 and Generalized anxiety disorder F41.1 [facility] [id number] [place] [address] 67545- 0070 Oct, [facility] [id number] [place] [address] 45327- 5083 Oct, [facility] [id number] [place] [address] 46946- 8506 Oct, [facility] [address], [place] [address]- 3876 Oct, [facility] [id number] [place] [address] 71734- 9934 Oct, [facility] [id number] [place] [address] 09402- 6619 Oct, [facility] [id number] [place] [address] 20080- 4095 Oct, [facility] [id number] [place] [address] 06042- 9706 Oct, [facility] [id number] [place] [address] 39544- 3341 Sep, Dorsalgia, unspecified M54.9 [facility] [id number] [place] [address] 17452- 5095 Sep, [facility] [id number] [place] [address] 40399- 4357 Sep, [facility] [address] [place] [address] 21031- 8196 Sep, Falling R29.6 ; Essential hypertension I10 ; Chronic obstructive pulmonary disease, unspecified COPD type J44.9 and BMI 40.0-44.9, adult Z68.41 [facility] [address], [place] [address]- 9151 Sep, [facility] [id number] [place] [address] 77807- 1886 Sep, [facility] [address] [place] [address] 78420- 5781 Sep, [facility] [id number] [place] [address] 86761- 0064 Sep, Mild intermittent asthma without complication J45.20 [facility] [address], [place] [address]- 6014 Sep, [facility] [place] [facility] [address] [id number] [place] [address]- 2466 19 Sep, 2017 [facility] [place] [facility] [address] [id number] [place] [address]- 2095 19 Sep, 2017 [facility] [place] [facility] [address] [id number] [place] [address]- 1430 18 Sep, 2017 [facility] [place] [facility] [address] [id number] [place] [address]- 0385 18 Sep, 2017 [facility] [place] [facility] [address] [id number] [place] [address]- 7783 15 Sep, 2017 [facility] [place] [facility] [address] [id number] [place] [address]- 3457 15 Sep, 2017 Essential hypertension I10 [facility] [place] [facility] [address] [id number] [place] [address]- 4161 15 Sep, 2017 [facility] [place] [facility] [address] [id number] [place] [address]- 5278 15 Sep, 2017 [facility] [place] [facility] [address] [id number] [place] [address]- 9940 15 Sep, 2017 [facility] [place] [facility] [address] [id number] [place] [address]- 2544 14 Sep, 2017 [facility] [place] [facility] [address] [id number] [place] [address]- 1617 14 Sep, 2017 [facility] [place] [facility] [address] [id number] [place] [address]- 8623 14 Sep, 2017 [facility] [place] [facility] [address] [id number] [place] [address]- 4864 13 Sep, 2017 [facility] [place] [facility] [address] [id number] [place] [address]- 7008 13 Sep, 2017 [facility] [place] [facility] [address] [id number] [place] [address]- 3109 13 Sep, 2017 [facility] [place] [facility] [address] [id number] [address]- 6381 Sep, [facility] [id number] [place] [address] 80629- 7706 Sep, Mild intermittent asthma without complication J45.20 [facility] [id number] [place] [address] 62032- 9688 August, Essential hypertension I10 [facility] [id number] [place] [address] 11918- 8010 August, BMI 40.0-44.9, adult Z68.41 ; Dorsalgia, unspecified M54.9 ; Allergic state, initial encounter T78.40XA ; Mild intermittent asthma without complication J45.20 and 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 [facility] [id number] [place] [address] 24475- 8837 August, [facility] [id number] [place] [address] 80761- 8062 August, [facility] [id number] [place] [address] 22575- 6305 August, [facility] [id number] [place] [address] 73114- 2010 August, Reactive depression F32.9 [facility] [id number] [place] [address] 04164- 8251 August, [facility] [id number] [place] [address] 23454- 4595 August, [facility] [address], [place] [address]- 3876 August, [facility] [id number] [place] [address] 59987- 8044 August, [facility] [address], [place] [address]- 8129 August, [facility] [id number] [place] [address] 35369- 3017 August, [facility] [address], [place] [address]- 0063 August, [facility] [address] [place] [address] 018889- 4142 August, Muscle spasms of both lower extremities M62.838 ; Essential hypertension I10 and Reactive depression F32.9 [facility] [address] [place] [address] 83521- 7040 August, [facility] [address], [place] [address]- 1413 Jul, [facility] [address] [place] [address] 09057- 8771 Jul, [facility] [id number] [place] [address] 62513- 3988 Jul, [facility] [id number] [place] [address] 18923- 3495 Jul, [facility] [id number] [place] [address] 10487- 1960 Jul, [facility] [address] [place] [address] 57650- 9064 Jul, [facility] [address], [place] [address]- 5513 Jul, [facility] [address], [place] [address]- 4938 Jul, [facility] [address], [place] [address]- 7518 Jul, Essential hypertension I10 ; Other chronic pain G89.29 ; Dorsalgia, unspecified M54.9 ; Reactive depression F32.9 ; Mild intermittent asthma without complication J45.20 ; Allergic state, initial encounter T78.40XA and Muscle spasms of both lower extremities M62.838 IMMUNIZATIONS No Known Immunizations SOCIAL HISTORY Never Assessed REASON FOR VISIT Xanax due 08/31 PLAN OF CARE VITAL SIGNS MEDICATIONS Medication [...]
--- OUTSIDE RECORDS SUMMARY | 2018-01-11 17:12 | XMS REPORT ---
Author Author TAYLOR ARAGON Organization [facility] Address [address] [place] [address] Care Team Providers Care Licensed Weigher Name Role Phone TAYLOR ARAGON Unavailable PROBLEMS Type Condition ICD9-CM Code FTK11-HR Code Onset Dates Condition Status SNOMED Code Problem Essential hypertension I10 Active 06483257 Problem Other chronic pain G89.29 Active 51327281 Problem Dorsalgia, unspecified M54.9 Active 573751419 Problem Allergic state, initial encounter T78.40XA Active 183731224 Problem Reactive depression F32.9 Active 39648226 Problem Muscle spasms of both lower extremities M62.838 Active 471504179 Problem Mild intermittent asthma without complication J45.20 Active 398967921 Problem PTSD (post-traumatic stress disorder) F43.10 Active 12866028 Problem Panic disorder F41.0 Active 369561542 Problem Severe episode of recurrent major depressive disorder, without psychotic features F33.2 Active 97724163 Problem Generalized anxiety disorder F41.1 Active 87813449 Problem Chronic obstructive pulmonary disease, unspecified COPD type J44.9 Active 46510128 Problem Falling R29.6 Active 882610137 ALLERGIES No Information ENCOUNTERS Encounter Location Date Diagnosis [facility] [id number], [place] [address] Dec, [facility] [address], [place] [address] Nov, [facility] [id number] [place] [address] 48892- 5935 Nov, [facility] [address], [place] [address] 0037 Nov, [facility] [id number], [place] [address] 3006 Nov, Essential hypertension I10 [id number], [place] [address] 8510 Nov, Severe episode of recurrent major depressive disorder, without psychotic features F33.2 [facility] [address] [place] [address] 29947- 9016 Nov, Acute pain of left knee M25.562 [facility] [id number] [place] [address] 75853- 5386 Nov, Severe episode of recurrent major depressive disorder, without psychotic features F33.2 ; PTSD (post-traumatic stress disorder) F43.10 ; Panic disorder F41.0 and BMI 40.0-44.9, adult Z68.41 [facility] [id number] [place] [address] 84749- 5474 Oct, [facility] [id number] [place] [address] 89340- 2292 Oct, [facility] [id number] [place] [address] 85015- 1673 Oct, [facility] [id number] [place] [address] 64620- 4794 Oct, [facility] [id number] [place] [address] 51927- 8784 Oct, Dorsalgia, unspecified M54.9 [facility] [id number] [place] [address] 35244- 0479 Oct, Severe episode of recurrent major depressive disorder, without psychotic features F33.2 and Generalized anxiety disorder F41.1 [facility] [address], [place] [address]- 4541 Oct, [facility] [id number] [place] [address] 22203- 5678 Oct, [facility] [address], [place] [address]- 6042 Oct, [facility] [address], [place] [address] 3668 Oct, [facility] [address], [place] [address]- 2834 Oct, [facility] [address], [place] [address]- 8834 Oct, [facility] [id number] [place] [address] 11142- 6678 Oct, [facility] [id number] [place] [address] 63259- 1447 Oct, [facility] [id number] [place] [address] 60496- 6104 Sep, Dorsalgia, unspecified M54.9 [facility] [id number] [place] [address] 24478- 9326 Sep, [facility] [id number] [place] [address] 55580- 3043 Sep, [facility] [address], [place] [address]- 0549 Sep, Falling R29.6 ; Essential hypertension I10 ; Chronic obstructive pulmonary disease, unspecified COPD type J44.9 and BMI 40.0-44.9, adult Z68.41 [facility] [address], [place] [address]- 3820 Sep, [facility] [address], [place] [address]- 0861 Sep, [facility] [address], [place] [address] 1952 Sep, [facility] [id number] [place] [address] 66006- 8842 Sep, Mild intermittent asthma without complication J45.20 [facility] [address], [place] [address]- 9130 Sep, [facility] [place] [facility] [address] [facility] [id number] [place] [address]- 3745 19 Sep, 2017 [facility] [place] [facility] [address] [id number] [place] [address]- 6341 19 Sep, 2017 [facility] [place] [facility] [address] [id number] [place] [address]- 6283 18 Sep, 2017 [facility] [place] [facility] [address] [id number] [place] [address]- 8497 18 Sep, 2017 [facility] [place] [facility] [address] [id number] [place] [address]- 1199 15 Sep, 2017 [facility] [place] [facility] [address] [id number] [place] [address]- 5926 15 Sep, 2017 Essential hypertension I10 [facility] [place] [facility] [address] [id number] [place] [address]- 7899 15 Sep, 2017 [facility] [place] [facility] [address] [id number] [place] [address]- 3715 15 Sep, 2017 [facility] [place] [facility] [address] [id number] [place] [address]- 2198 15 Sep, 2017 [facility] [place] [facility] [address] [id number] [place] [address]- 1151 14 Sep, 2017 [facility] [place] [facility] [address] [id number] [place] [address]- 2989 14 Sep, 2017 [facility] [place] [facility] [address] [id number] [place] [address]- 9376 14 Sep, 2017 [facility] [place] [facility] [address] [id number] [place] [address]- 3565 13 Sep, 2017 [facility] [place] [facility] [address] [id number] [place] [address]- 3270 13 Sep, 2017 [facility] [place] [facility] [address] [id number] [place] [address]- 9033 13 Sep, 2017 [facility] [place] [facility] [address] [id number] [place] [address]- 6765 Sep, [facility] [id number] [place] [address] 04907- 7711 Sep, Mild intermittent asthma without complication J45.20 [facility] [id number] [place] [address] 39798- 8024 August, Essential hypertension I10 [facility] [id number] [place] [address] 26420- 5864 August, BMI 40.0-44.9, adult Z68.41 ; Dorsalgia, unspecified M54.9 ; Allergic state, initial encounter T78.40XA ; Mild intermittent asthma without complication J45.20 and 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 [facility] [id number] [place] [address] 39601- 3175 August, [facility] [id number] [place] [address] 02326- 2332 August, [facility] [id number] [place] [address] 04250- 5358 August, [facility] [id number] [place] [address] 45393- 3434 August, Reactive depression F32.9 [facility] [id number] [place] [address] 32890- 5118 August, [facility] [id number] [place] [address] 37983- 2139 August, [facility] [id number] [place] [address] 38846- 9822 August, [facility] [id number] [place] [address] 08924- 3641 August, [facility] [id number] [place] [address] 22423- 9506 August, [facility] [id number] [place] [address] 76835- 4005 August, [facility] [address], [place] [address]- 0461 August, [facility] [id number] [place] [address] 44161- 8086 August, Muscle spasms of both lower extremities M62.838 ; Essential hypertension I10 and Reactive depression F32.9 [facility] [id number] [place] [address] 83581- 0439 August, [facility] [id number] [place] [address] 84945- 8173 Jul, [facility] [id number] [place] [address] 33030- 7615 Jul, [facility] [id number] [place] [address] 33906- 3132 Jul, [facility] [id number] [place] [address] 38666- 0832 Jul, [facility] [address] [place] [address] 98775- 0197 Jul, [facility] [id number] [place] [address] 29923- 0335 Jul, [facility] [address], [place] [address]- 4601 Jul, [facility] [address] [place] [address] 27593- 2810 Jul, [facility] [address], [place] [address]- 8239 Jul, Essential hypertension I10 ; Other chronic pain G89.29 ; Dorsalgia, unspecified M54.9 ; Reactive depression F32.9 ; Mild intermittent asthma without complication J45.20 ; Allergic state, initial encounter T78.40XA and Muscle spasms of both lower extremities M62.838 IMMUNIZATIONS No Known Immunizations SOCIAL HISTORY Never Assessed REASON FOR VISIT zoloft refill PLAN OF CARE VITAL SIGNS MEDICATIONS Medication [...]
--- OUTSIDE RECORDS SUMMARY | 2018-01-11 17:12 | XMS REPORT ---
Author Author ROSALINA GRAHAM Organization [facility] Address [address] [place] [address] Care Team Providers Care Licensed Mental Health Counselor Name Role Phone ROSALINA GRAHAM Unavailable PROBLEMS Type Condition ICD9-CM Code FMY66-TG Code Onset Dates Condition Status SNOMED Code Problem Essential hypertension I10 Active 65199125 Problem Other chronic pain G89.29 Active 40466452 Problem Dorsalgia, unspecified M54.9 Active 750399930 Problem Allergic state, initial encounter T78.40XA Active 469419160 Problem Reactive depression F32.9 Active 60592887 Problem Muscle spasms of both lower extremities M62.838 Active 752300427 Problem Mild intermittent asthma without complication J45.20 Active 164770360 Problem PTSD (post-traumatic stress disorder) F43.10 Active 28791370 Problem Panic disorder F41.0 Active 290183209 Problem Severe episode of recurrent major depressive disorder, without psychotic features F33.2 Active 78830079 Problem Generalized anxiety disorder F41.1 Active 58677995 Problem Chronic obstructive pulmonary disease, unspecified COPD type J44.9 Active 62679553 Problem Falling R29.6 Active 013490019 ALLERGIES No Information ENCOUNTERS Encounter Location Date Diagnosis [facility] [id number] [address]- 3146 Dec, [facility] [address] [address]- 3292 Dec, [facility] [address] [place] [address] 82793- 5708 Nov, [facility] [address] [address]- 5756 Nov, [facility] [id number] [address]- 6433 Nov, [address] [address]- 0647 Nov, [facility] [address] [place] [address] 22385- 7706 Nov, [facility] [address] [address]- 2659 Nov, [facility] [id number] [place] [address] 29363- 0718 Nov, [facility] [address] [place] [address] 11943- 8131 Nov, [facility] [id number] [place] [address] 07330- 7815 Nov, [facility] [id number] [place] [address] 72401- 8642 Nov, [facility] [id number] [place] [address] 32077- 5038 Nov, Severe episode of recurrent major depressive disorder, without psychotic features F33.2 ; PTSD (post-traumatic stress disorder) F43.10 ; Panic disorder F41.0 and BMI 40.0-44.9, adult Z68.41 [facility] [address] [address]- 7753 Nov, [facility] [address] [place] [address] 97353- 7290 Nov, Essential hypertension I10 [facility] [address] [address]- 4396 Nov, Severe episode of recurrent major depressive disorder, without psychotic features F33.2 [facility] [address] [place] [address] 45236- 6069 Nov, Acute pain of left knee M25.562 [facility] [address] [address]- 6865 Nov, Severe episode of recurrent major depressive disorder, without psychotic features F33.2 ; PTSD (post-traumatic stress disorder) F43.10 ; Panic disorder F41.0 and BMI 40.0-44.9, adult Z68.41 [facility] [address] [place] [address] 33198- 3986 Oct, [facility] [address] [address]- 0881 Oct, [facility] [id number] [place] [address] 05886- 2984 Oct, [facility] [id number] [place] [address] 59465- 5502 Oct, [facility] [id number] [place] [address] 69839- 0182 Oct, Dorsalgia, unspecified M54.9 [facility] [id number] [place] [address] 12256- 0494 Oct, Severe episode of recurrent major depressive disorder, without psychotic features F33.2 and Generalized anxiety disorder F41.1 [facility] [address] [address]- 4917 Oct, [facility] [address] [address]- 8452 Oct, [facility] [id number] [address]- 7269 Oct, [facility] [id number] [address]- 4800 Oct, [facility] [id number] [address]- 9460 Oct, [facility] [id number] [address]- 3160 Oct, [facility] [id number] [address]- 1507 Oct, [facility] [id number] [place] [address] 10195- 6357 Oct, [facility] [id number] [place] [address] 86915- 6684 Sep, Dorsalgia, unspecified M54.9 [facility] [id number] [place] [address] 58959- 2937 Sep, [facility] [address] 16834- 9064 Sep, [facility] [id number] [place] [address] 44064- 5014 Sep, Falling R29.6 ; Essential hypertension I10 ; Chronic obstructive pulmonary disease, unspecified COPD type J44.9 and BMI 40.0-44.9, adult Z68.41 [facility] [id number] [place] [address] 53813- 4043 Sep, [facility] [id number] [place] [address] 05866- 0772 Sep, [facility] [id number] [place] [address] 94223- 5755 Sep, [facility] [id number] [place] [address] 30442- 3629 Sep, Mild intermittent asthma without complication J45.20 [facility] [id number] [place] [address] 70341- 5140 Sep, [facility] [id number] [place] [address] 79615- 6358 Sep, [facility] [id number] [place] [address] 12156- 8407 Sep, [facility] [id number] [place] [address] 60067- 1285 Sep, [facility] [id number] [place] [address] 84212- 6308 Sep, [facility] [address] [address]- 3113 15 Sep, 2017 [facility] [address] [place] [address] 37769- 7173 15 Sep, 2017 Essential hypertension I10 [facility] [address] [address]- 3956 15 Sep, 2017 [facility] [id number] [place] [address] 73113- 3580 15 Sep, 2017 [facility] [address] [place] [address] 45900- 2945 15 Sep, 2017 [facility] [id number] [place] [address] 32814- 2940 14 Sep, 2017 [facility] [address] [address]- 6125 14 Sep, 2017 [facility] [address] [place] [address] 71011- 7530 14 Sep, 2017 [facility] [address] [address]- 1000 13 Sep, 2017 [facility] [address] [place] [address] 34127- 9569 Sep, [facility] [address] [address]- 4341 13 Sep, 2017 [facility] [address] [address]- 0333 Sep, [facility] [address] [address]- 1523 05 Sep, 2017 Mild intermittent asthma without complication J45.20 [facility] [address] [address]- 1452 August, Essential hypertension I10 [facility] [address] [address]- 7403 August, BMI 40.0-44.9, adult Z68.41 ; Dorsalgia, unspecified M54.9 ; Allergic state, initial encounter T78.40XA ; Mild intermittent asthma without complication J45.20 and 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 [facility] [id number] [place] [address] 01066- 4597 August, [facility] [id number] [place] [address] 98453- 9674 August, [facility] [address] 41497- 8871 August, [facility] [id number] [place] [address] 86413- 0005 August, Reactive depression F32.9 [facility] [id number] [place] [address] 68218- 1970 August, [facility] [address] 44071- 4662 August, [facility] [id number] [place] [address] 08316- 3994 August, [facility] [address] 60708- 7170 August, [facility] [id number] [place] [address] 80466- 6180 August, [facility] [id number] [place] [address] 56624- 3093 August, [facility] [id number] [place] [address] 64065- 6666 August, [facility] [address] 69141- 9694 August, Muscle spasms of both lower extremities M62.838 ; Essential hypertension I10 and Reactive depression F32.9 [facility] [id number] [place] [address] 84039- 5909 August, [facility] [id number] [address]- 2841 Jul, [facility] [address] [address]- 6963 Jul, [facility] [address] [address]- 7510 Jul, [facility] [address] [address]- 9082 Jul, [facility] [address] [address]- 3875 Jul, [facility] [address] [address]- 7287 Jul, [facility] [address] [address]- 3211 Jul, [facility] [address] [address]- 0792 Jul, [facility] [id number] [address]- 1443 Jul, Essential hypertension I10 ; Other chronic [...]
--- OUTSIDE RECORDS SUMMARY | 2018-01-11 17:12 | XMS REPORT ---
Author Author ROSALINA GRAHAM Organization [facility] Address [address] [place] [address] Care Team Providers Care Warehouse Consultant Name Role Phone ROSALINA GRAHAM Unavailable PROBLEMS Type Condition ICD9-CM Code JTR59-VR Code Onset Dates Condition Status SNOMED Code Problem Essential hypertension I10 Active 98207036 Problem Other chronic pain G89.29 Active 02152262 Problem Dorsalgia, unspecified M54.9 Active 660196764 Problem Allergic state, initial encounter T78.40XA Active 589922884 Problem Reactive depression F32.9 Active 45762785 Problem Muscle spasms of both lower extremities M62.838 Active 458486739 Problem Mild intermittent asthma without complication J45.20 Active 312193190 Problem PTSD (post-traumatic stress disorder) F43.10 Active 06681933 Problem Panic disorder F41.0 Active 905460301 Problem Severe episode of recurrent major depressive disorder, without psychotic features F33.2 Active 90227130 Problem Generalized anxiety disorder F41.1 Active 81953443 Problem Chronic obstructive pulmonary disease, unspecified COPD type J44.9 Active 97154689 Problem Falling R29.6 Active 127661773 ALLERGIES No Information ENCOUNTERS Encounter Location Date Diagnosis [facility] [id number], [place] [address] Dec, [facility] [address], [place] [address] Nov, [facility] [id number] [place] [address] 45991- 4294 Nov, [facility] [id number] [place] [address] 54719- 6097 Nov, [facility] [id number], [place] [address] 3289 Nov, Essential hypertension I10 [facility] [id number] [place] [address] 00692- 4894 Nov, Severe episode of recurrent major depressive disorder, without psychotic features F33.2 [facility] [id number] [place] [address] 68120- 5199 Nov, Acute pain of left knee M25.562 [facility] [id number] [place] [address] 53649- 8248 Nov, Severe episode of recurrent major depressive disorder, without psychotic features F33.2 ; PTSD (post-traumatic stress disorder) F43.10 ; Panic disorder F41.0 and BMI 40.0-44.9, adult Z68.41 [facility] [id number] [place] [address] 28743- 2249 Oct, [facility] [id number] [place] [address] 89617- 9573 Oct, [facility] [id number] [place] [address] 41870- 4078 Oct, [facility] [id number] [place] [address] 67814- 4765 Oct, [facility] [id number] [place] [address] 57114- 0633 Oct, Dorsalgia, unspecified M54.9 [facility] [id number] [place] [address] 43271- 1580 Oct, Severe episode of recurrent major depressive disorder, without psychotic features F33.2 and Generalized anxiety disorder F41.1 [facility] [id number] [place] [address] 28944- 0838 Oct, [facility] [id number] [place] [address] 42121- 6984 Oct, [facility] [id number] [place] [address] 01114- 1219 Oct, [facility] [address], [place] [address]- 6235 Oct, [facility] [id number] [place] [address] 21296- 3375 Oct, [facility] [id number] [place] [address] 61826- 9494 Oct, [facility] [id number] [place] [address] 71878- 3895 Oct, [facility] [id number] [place] [address] 99347- 7365 Oct, [facility] [id number] [place] [address] 89346- 3476 Sep, Dorsalgia, unspecified M54.9 [facility] [id number] [place] [address] 37765- 9918 Sep, [facility] [id number] [place] [address] 61600- 7961 Sep, [facility] [address] [place] [address] 31255- 2775 Sep, Falling R29.6 ; Essential hypertension I10 ; Chronic obstructive pulmonary disease, unspecified COPD type J44.9 and BMI 40.0-44.9, adult Z68.41 [facility] [address], [place] [address]- 5142 Sep, [facility] [id number] [place] [address] 57729- 7512 Sep, [facility] [address] [place] [address] 29159- 1743 Sep, [facility] [id number] [place] [address] 17376- 3578 Sep, Mild intermittent asthma without complication J45.20 [facility] [address], [place] [address]- 6065 Sep, [facility] [place] [facility] [address] [id number] [place] [address]- 7374 19 Sep, 2017 [facility] [place] [facility] [address] [id number] [place] [address]- 4194 19 Sep, 2017 [facility] [place] [facility] [address] [id number] [place] [address]- 1125 18 Sep, 2017 [facility] [place] [facility] [address] [id number] [place] [address]- 1903 18 Sep, 2017 [facility] [place] [facility] [address] [id number] [place] [address]- 6058 15 Sep, 2017 [facility] [place] [facility] [address] [id number] [place] [address]- 8836 15 Sep, 2017 Essential hypertension I10 [facility] [place] [facility] [address] [id number] [place] [address]- 4019 15 Sep, 2017 [facility] [place] [facility] [address] [id number] [place] [address]- 5730 15 Sep, 2017 [facility] [place] [facility] [address] [id number] [place] [address]- 6405 15 Sep, 2017 [facility] [place] [facility] [address] [id number] [place] [address]- 4885 14 Sep, 2017 [facility] [place] [facility] [address] [id number] [place] [address]- 9167 14 Sep, 2017 [facility] [place] [facility] [address] [id number] [place] [address]- 3275 14 Sep, 2017 [facility] [place] [facility] [address] [id number] [place] [address]- 3773 13 Sep, 2017 [facility] [place] [facility] [address] [id number] [place] [address]- 9170 13 Sep, 2017 [facility] [place] [facility] [address] [id number] [place] [address]- 7477 13 Sep, 2017 [facility] [place] [facility] [address] [id number] [address]- 3559 Sep, [facility] [id number] [place] [address] 39838- 7721 Sep, Mild intermittent asthma without complication J45.20 [facility] [id number] [place] [address] 03578- 3769 August, Essential hypertension I10 [facility] [id number] [place] [address] 64030- 1181 August, BMI 40.0-44.9, adult Z68.41 ; Dorsalgia, unspecified M54.9 ; Allergic state, initial encounter T78.40XA ; Mild intermittent asthma without complication J45.20 and 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 [facility] [id number] [place] [address] 77477- 3070 August, [facility] [id number] [place] [address] 26985- 3003 August, [facility] [id number] [place] [address] 44507- 7660 August, [facility] [id number] [place] [address] 83832- 4278 August, Reactive depression F32.9 [facility] [id number] [place] [address] 63642- 9900 August, [facility] [id number] [place] [address] 26324- 3764 August, [facility] [address], [place] [address]- 7845 August, [facility] [id number] [place] [address] 33159- 7023 August, [facility] [address], [place] [address]- 5252 August, [facility] [id number] [place] [address] 50173- 1769 August, [facility] [address], [place] [address]- 2137 August, [facility] [id number] [place] [address] 068586- 6084 August, Muscle spasms of both lower extremities M62.838 ; Essential hypertension I10 and Reactive depression F32.9 [facility] [address] [place] [address] 14356- 8514 August, [facility] [address], [place] [address]- 0118 Jul, [facility] [address] [place] [address] 49829- 2825 Jul, [facility] [id number] [place] [address] 53457- 8344 Jul, [facility] [id number] [place] [address] 98525- 8681 Jul, [facility] [id number] [place] [address] 59481- 4033 Jul, [facility] [id number] [place] [address] 95334- 9711 Jul, [facility] [address], [place] [address]- 0503 Jul, [facility] [address], [place] [address]- 5201 Jul, [facility] [address], [place] [address]- 5959 Jul, Essential hypertension I10 ; Other chronic pain G89.29 ; Dorsalgia, unspecified M54.9 ; Reactive depression F32.9 ; Mild intermittent asthma without complication J45.20 ; Allergic state, initial encounter T78.40XA and Muscle spasms of both lower extremities M62.838 IMMUNIZATIONS No Known Immunizations SOCIAL HISTORY Never Assessed REASON FOR VISIT Re:RE:Zoloft/Xanax PLAN OF CARE VITAL SIGNS MEDICATIONS Unknown [...]
--- OUTSIDE RECORDS SUMMARY | 2018-01-11 17:13 | XMS REPORT ---
Author Author ROSALINA GRAHAM Organization [facility] Address [address] [place] [address] Care Team Providers Care Take Down Sorter Name Role Phone ROSALINA GRAHAM Unavailable PROBLEMS Type Condition ICD9-CM Code SRX25-SZ Code Onset Dates Condition Status SNOMED Code Problem Essential hypertension I10 Active 65502597 Problem Other chronic pain G89.29 Active 43721505 Problem Dorsalgia, unspecified M54.9 Active 071219277 Problem Allergic state, initial encounter T78.40XA Active 647108750 Problem Reactive depression F32.9 Active 26961287 Problem Muscle spasms of both lower extremities M62.838 Active 369394113 Problem Mild intermittent asthma without complication J45.20 Active 935978840 Problem PTSD (post-traumatic stress disorder) F43.10 Active 52109237 Problem Panic disorder F41.0 Active 154483817 Problem Severe episode of recurrent major depressive disorder, without psychotic features F33.2 Active 52053049 Problem Generalized anxiety disorder F41.1 Active 66846551 Problem Chronic obstructive pulmonary disease, unspecified COPD type J44.9 Active 74954542 Problem Falling R29.6 Active 280770426 ALLERGIES No Information ENCOUNTERS Encounter Location Date Diagnosis [facility] [id number] [address]- 5654 Dec, [facility] [address] [address]- 3093 Nov, [facility] [id number] [place] [address] 28522- 4184 Nov, [facility] [id number] [place] [address] 29953- 9967 Nov, [facility] [id number] [address]- 6522 Nov, Essential hypertension I10 [facility] [id number] [place] [address] 62885- 7519 Nov, Severe episode of recurrent major depressive disorder, without psychotic features F33.2 [facility] [id number] [place] [address] 63864- 0344 Nov, Acute pain of left knee M25.562 [facility] [id number] [place] [address] 08068- 2832 Nov, Severe episode of recurrent major depressive disorder, without psychotic features F33.2 ; PTSD (post-traumatic stress disorder) F43.10 ; Panic disorder F41.0 and BMI 40.0-44.9, adult Z68.41 [facility] [id number] [place] [address] 16423- 6507 Oct, [facility] [id number] [place] [address] 20454- 6895 Oct, [facility] [id number] [place] [address] 33260- 1473 Oct, [facility] [id number] [place] [address] 19048- 0494 Oct, [facility] [id number] [place] [address] 37665- 5295 Oct, Dorsalgia, unspecified M54.9 [facility] [id number] [place] [address] 06058- 2736 Oct, Severe episode of recurrent major depressive disorder, without psychotic features F33.2 and Generalized anxiety disorder F41.1 [facility] [id number] [place] [address] 07162- 4451 Oct, [facility] [id number] [place] [address] 53145- 4499 Oct, [facility] [id number] [place] [address] 46693- 6881 Oct, [facility] [address], [place] [address]- 2849 Oct, [facility] [id number] [place] [address] 61119- 1454 Oct, [facility] [id number] [place] [address] 81486- 1209 Oct, [facility] [id number] [place] [address] 86592- 5766 Oct, [facility] [id number] [place] [address] 03983- 3907 Oct, [facility] [id number] [place] [address] 82961- 5921 Sep, Dorsalgia, unspecified M54.9 [facility] [id number] [place] [address] 73128- 9374 Sep, [facility] [id number] [place] [address] 09217- 5871 Sep, [facility] [address] [place] [address] 45387- 5126 Sep, Falling R29.6 ; Essential hypertension I10 ; Chronic obstructive pulmonary disease, unspecified COPD type J44.9 and BMI 40.0-44.9, adult Z68.41 [facility] [address] [address]- 1508 Sep, [facility] [id number] [place] [address] 01901- 0007 Sep, [facility] [id number] [place] [address] 19100- 5488 Sep, [facility] [id number] [place] [address] 27607- 3632 Sep, Mild intermittent asthma without complication J45.20 [facility] [address], [place] [address]- 9710 Sep, [facility] [place] [facility] [address] [id number] [place] [address]- 7506 19 Sep, 2017 [facility] [place] [facility] [address] [id number] [place] [address]- 3475 19 Sep, 2017 [facility] [place] [facility] [address] [id number] [place] [address]- 1965 18 Sep, 2017 [facility] [place] [facility] [address] [id number] [place] [address]- 8488 18 Sep, 2017 [facility] [place] [facility] [address] [id number] [place] [address]- 5546 15 Sep, 2017 [facility] [place] [facility] [address] [id number] [place] [address]- 7283 15 Sep, 2017 Essential hypertension I10 [facility] [place] [facility] [address] [id number] [place] [address]- 1597 15 Sep, 2017 [facility] [place] [facility] [address] [id number] [place] [address]- 8346 15 Sep, 2017 [facility] [place] [facility] [address] [id number] [place] [address]- 3892 15 Sep, 2017 [facility] [place] [facility] [address] [id number] [place] [address]- 0480 14 Sep, 2017 [facility] [place] [facility] [address] [id number] [place] [address]- 4711 14 Sep, 2017 [facility] [place] [facility] [address] [id number] [place] [address]- 2679 14 Sep, 2017 [facility] [place] [facility] [address] [id number] [place] [address]- 9618 13 Sep, 2017 [facility] [place] [facility] [address] [id number] [place] [address]- 1639 13 Sep, 2017 [facility] [place] [facility] [address] [id number] [place] [address]- 4125 13 Sep, 2017 [facility] [place] [facility] [address] [id number] [address]- 8301 Sep, [facility] [id number] [place] [address] 74704- 4963 Sep, Mild intermittent asthma without complication J45.20 [facility] [id number] [place] [address] 07233- 5621 August, Essential hypertension I10 [facility] [id number] [place] [address] 49785- 4060 August, BMI 40.0-44.9, adult Z68.41 ; Dorsalgia, unspecified M54.9 ; Allergic state, initial encounter T78.40XA ; Mild intermittent asthma without complication J45.20 and 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 [facility] [id number] [place] [address] 83773- 8226 August, [facility] [id number] [place] [address] 21490- 9712 August, [facility] [id number] [place] [address] 95178- 5246 August, [facility] [id number] [place] [address] 20982- 7687 August, Reactive depression F32.9 [facility] [id number] [place] [address] 15888- 8940 August, [facility] [id number] [place] [address] 06137- 2609 August, [facility] [address] [address]- 6812 August, [facility] [id number] [place] [address] 93808- 6795 August, [facility] [address] [address]- 7465 August, [facility] [id number] [place] [address] 31374- 6018 August, [facility] [address] [address]- 6878 August, [facility] [address] [place] [address] [id number]- [id number] August, Muscle spasms of both lower extremities M62.838 ; Essential hypertension I10 and Reactive depression F32.9 [facility] [id number] [place] [phone]- [phone] August, [facility] [id number] [address] Jul, [facility] [id number] [place] [address]- 240[address] Jul, [facility] [id number] [place] [address] [phone]- [phone] Jul, [facility] [id number] [place] [address]26[address]- 6044 Jul, [facility] [id number] [place] [id number]- [address] Jul, [facility] [id number] [place] [address]70- 1663 Jul, [facility] [id number] [address] Jul, [facility] [id number] [address] Jul, [facility] [id number] [address] Jul, Essential hypertension I10 ; Other chronic pain G89.29 ; Dorsalgia, unspecified M54.9 ; Reactive depression F32.9 ; Mild intermittent asthma without complication J45.20 ; Allergic state, initial encounter T78.40XA and Muscle spasms of both lower extremities M62.838 IMMUNIZATIONS No Known Immunizations SOCIAL HISTORY Never Assessed REASON FOR VISIT Zoloft/Xanax PLAN OF CARE VITAL SIGNS MEDICATIONS Unknown [...]
--- OUTSIDE RECORDS SUMMARY | 2018-01-11 17:13 | XMS REPORT ---
Author Author ROSALINA GRAHAM Organization [facility] Address [address] [place] [address] Care Team Providers Care Hydro Plant Technician Name Role Phone ROSALINA GRAHAM Unavailable PROBLEMS Type Condition ICD9-CM Code PVP61-EU Code Onset Dates Condition Status SNOMED Code Problem Essential hypertension I10 Active 63378381 Problem Other chronic pain G89.29 Active 28469169 Problem Dorsalgia, unspecified M54.9 Active 152850786 Problem Allergic state, initial encounter T78.40XA Active 854044588 Problem Reactive depression F32.9 Active 58459155 Problem Muscle spasms of both lower extremities M62.838 Active 939291411 Problem Mild intermittent asthma without complication J45.20 Active 655934873 Problem PTSD (post-traumatic stress disorder) F43.10 Active 70609385 Problem Panic disorder F41.0 Active 641753286 Problem Severe episode of recurrent major depressive disorder, without psychotic features F33.2 Active 62688985 Problem Generalized anxiety disorder F41.1 Active 52359950 Problem Chronic obstructive pulmonary disease, unspecified COPD type J44.9 Active 87236424 Problem Falling R29.6 Active 072535250 ALLERGIES No Information ENCOUNTERS Encounter Location Date Diagnosis [facility] [id number], [place] [address] Dec, [facility] [address], [place] [address] Nov, [facility] [address] [place] [address] 50448- 0959 Nov, [facility] [address] [place] [address] 95235- 5759 Nov, [facility] [id number], [place] [address] 7485 Nov, Essential hypertension I10 [facility] [address] [place] [address] 59250- 9036 Nov, Severe episode of recurrent major depressive disorder, without psychotic features F33.2 [facility] [id number] [place] [address] 69076- 8819 Nov, Acute pain of left knee M25.562 [facility] [id number] [place] [address] 65694- 0092 Nov, Severe episode of recurrent major depressive disorder, without psychotic features F33.2 ; PTSD (post-traumatic stress disorder) F43.10 ; Panic disorder F41.0 and BMI 40.0-44.9, adult Z68.41 [facility] [id number] [place] [address] 94252- 9800 Oct, [facility] [id number] [place] [address] 14382- 4754 Oct, [facility] [id number] [place] [address] 79339- 7945 Oct, [facility] [id number] [place] [address] 65348- 7893 Oct, [facility] [id number] [place] [address] 91029- 4087 Oct, Dorsalgia, unspecified M54.9 [facility] [id number] [place] [address] 92744- 6848 Oct, Severe episode of recurrent major depressive disorder, without psychotic features F33.2 and Generalized anxiety disorder F41.1 [facility] [id number] [place] [address] 43879- 8179 Oct, [facility] [id number] [place] [address] 37017- 9147 Oct, [facility] [id number] [place] [address] 03676- 3299 Oct, [facility] [address], [place] [address]- 5704 Oct, [facility] [id number] [place] [address] 60213- 1080 Oct, [facility] [id number] [place] [address] 70719- 9132 Oct, [facility] [id number] [place] [address] 59591- 0869 Oct, [facility] [id number] [place] [address] 32398- 2943 Oct, [facility] [id number] [place] [address] 01840- 2988 Sep, Dorsalgia, unspecified M54.9 [facility] [id number] [place] [address] 97486- 9446 Sep, [facility] [id number] [place] [address] 33130- 4633 Sep, [facility] [address] [place] [address] 47813- 4074 Sep, Falling R29.6 ; Essential hypertension I10 ; Chronic obstructive pulmonary disease, unspecified COPD type J44.9 and BMI 40.0-44.9, adult Z68.41 [facility] [address], [place] [address]- 3874 Sep, [facility] [id number] [place] [address] 11571- 3494 Sep, [facility] [address] [place] [address] 91127- 3606 Sep, [facility] [id number] [place] [address] 47025- 9499 Sep, Mild intermittent asthma without complication J45.20 [facility] [address], [place] [address] 6448 Sep, [facility] [place] [facility] [address] [id number] [place] [address]- 0241 19 Sep, 2017 [facility] [place] [facility] [address] [id number] [place] [address]- 8633 19 Sep, 2017 [facility] [place] [facility] [address] [id number] [place] [address]- 0639 18 Sep, 2017 [facility] [place] [facility] [address] [id number] [place] [address]- 4900 18 Sep, 2017 [facility] [place] [facility] [address] [id number] [place] [address]- 4138 15 Sep, 2017 [facility] [place] [facility] [address] [id number] [place] [address]- 5969 15 Sep, 2017 Essential hypertension I10 [facility] [place] [facility] [address] [id number] [place] [address]- 6135 15 Sep, 2017 [facility] [place] [facility] [address] [id number] [place] [address]- 6317 15 Sep, 2017 [facility] [place] [facility] [address] [id number] [place] [address]- 7889 15 Sep, 2017 [facility] [place] [facility] [address] [id number] [place] [address]- 1876 14 Sep, 2017 [facility] [place] [facility] [address] [id number] [place] [address]- 8787 14 Sep, 2017 [facility] [place] [facility] [address] [id number] [place] [address]- 7569 14 Sep, 2017 [facility] [place] [facility] [address] [id number] [place] [address]- 2510 13 Sep, 2017 [facility] [place] [facility] [address] [id number] [place] [address]- 6303 13 Sep, 2017 [facility] [place] [facility] [address] [id number] [place] [address]- 5057 13 Sep, 2017 [facility] [place] [facility] [address] [id number], [place] [address]- 4982 Sep, [facility] [id number] [place] [address] 38545- 1759 Sep, Mild intermittent asthma without complication J45.20 [facility] [id number] [place] [address] 78240- 2248 August, Essential hypertension I10 [facility] [id number] [place] [address] 52306- 4921 August, BMI 40.0-44.9, adult Z68.41 ; Dorsalgia, unspecified M54.9 ; Allergic state, initial encounter T78.40XA ; Mild intermittent asthma without complication J45.20 and 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 [facility] [id number] [place] [address] 49693- 6171 August, [facility] [id number] [place] [address] 08090- 4055 August, [facility] [id number] [place] [address] 70473- 1618 August, [facility] [id number] [place] [address] 19921- 7631 August, Reactive depression F32.9 [facility] [id number] [place] [address] 04822- 0795 August, [facility] [id number] [place] [address] 91272- 1352 August, [facility] [address], [place] [address]- 6691 August, [facility] [id number] [place] [address] 12932- 2125 August, [facility] [address], [place] [address]- 0183 August, [facility] [id number] [place] [address] 28962- 8309 August, [facility] [address], [place] [address]- 5192 August, [facility] [address] [address] August, Muscle spasms of both lower extremities M62.838 ; Essential hypertension I10 and Reactive depression F32.9 [facility] [address], [place] [address]- 9489 August, [facility] [address], [place] [address]- 0314 Jul, [facility] [address] [place] [address] 98584- 9570 Jul, [facility] [address] [place] [address] 06135- 9142 Jul, [facility] [address] [place] [address] 42651- 9011 Jul, [facility] [address], [place] [address]- 8227 Jul, [facility] [address], [place] [address]- 5622 Jul, [facility] [address], [place] [address]- 2069 Jul, [facility] [address], [place] [address]- 1873 Jul, [facility] [address], [place] [address]- 0400 Jul, Essential hypertension I10 ; Other chronic pain G89.29 ; Dorsalgia, unspecified M54.9 ; Reactive depression F32.9 ; Mild intermittent asthma without complication J45.20 ; Allergic state, initial encounter T78.40XA and Muscle spasms of both lower extremities M62.838 IMMUNIZATIONS No Known Immunizations SOCIAL HISTORY Never Assessed REASON FOR VISIT Re:RE:Re:RE:Blood pressure/other PLAN OF CARE VITAL SIGNS MEDICATIONS Unknown [...]
--- OUTSIDE RECORDS SUMMARY | 2018-01-11 17:13 | XMS REPORT ---
Author Author ROSALINA GRAHAM Organization [facility] Address [address] [place] [address] Care Team Providers Care Humanities Teacher Name Role Phone ROSALINA GRAHAM Unavailable PROBLEMS Type Condition ICD9-CM Code SZI25-SN Code Onset Dates Condition Status SNOMED Code Problem Essential hypertension I10 Active 25400427 Problem Other chronic pain G89.29 Active 40284699 Problem Dorsalgia, unspecified M54.9 Active 108142401 Problem Allergic state, initial encounter T78.40XA Active 617197744 Problem Reactive depression F32.9 Active 48568370 Problem Muscle spasms of both lower extremities M62.838 Active 339340961 Problem Mild intermittent asthma without complication J45.20 Active 663188410 Problem PTSD (post-traumatic stress disorder) F43.10 Active 73473160 Problem Panic disorder F41.0 Active 441338655 Problem Severe episode of recurrent major depressive disorder, without psychotic features F33.2 Active 67586101 Problem Generalized anxiety disorder F41.1 Active 07855465 Problem Chronic obstructive pulmonary disease, unspecified COPD type J44.9 Active 77901149 Problem Falling R29.6 Active 146669917 ALLERGIES No Information ENCOUNTERS Encounter Location Date Diagnosis [facility] [id number] [address]- 1633 Dec, [facility] [address], [place] [address]- 8982 Nov, [facility] [address] [place] [address] 88087- 8417 Nov, [facility] [address] [place] [address] 33422- 9758 Nov, [facility] [id number], [place] [address]- 7938 Nov, Essential hypertension I10 [facility] [address] [place] [address] 36784- 2996 Nov, Severe episode of recurrent major depressive disorder, without psychotic features F33.2 [facility] [id number] [place] [address] 04786- 7730 Nov, Acute pain of left knee M25.562 [facility] [id number] [place] [address] 97396- 4238 Nov, Severe episode of recurrent major depressive disorder, without psychotic features F33.2 ; PTSD (post-traumatic stress disorder) F43.10 ; Panic disorder F41.0 and BMI 40.0-44.9, adult Z68.41 [facility] [id number] [place] [address] 38125- 7656 Oct, [facility] [id number] [place] [address] 46537- 7807 Oct, [facility] [id number] [place] [address] 09313- 9745 Oct, [facility] [id number] [place] [address] 01397- 3409 Oct, [facility] [id number] [place] [address] 88705- 7538 Oct, Dorsalgia, unspecified M54.9 [facility] [id number] [place] [address] 94469- 8333 Oct, Severe episode of recurrent major depressive disorder, without psychotic features F33.2 and Generalized anxiety disorder F41.1 [facility] [id number] [place] [address] 04291- 0063 Oct, [facility] [id number] [place] [address] 06848- 9980 Oct, [facility] [id number] [place] [address] 04182- 3168 Oct, [facility] [address] [address]- 2192 Oct, [facility] [id number] [place] [address] 33122- 8678 Oct, [facility] [id number] [place] [address] 19271- 7263 Oct, [facility] [id number] [place] [address] 41349- 1959 Oct, [facility] [id number] [place] [address] 89755- 2591 Oct, [facility] [id number] [place] [address] 33510- 2731 Sep, Dorsalgia, unspecified M54.9 [facility] [id number] [place] [address] 08650- 2297 Sep, [facility] [id number] [place] [address] 79860- 9278 Sep, [facility] [address] [place] [address] 16423- 0578 Sep, Falling R29.6 ; Essential hypertension I10 ; Chronic obstructive pulmonary disease, unspecified COPD type J44.9 and BMI 40.0-44.9, adult Z68.41 [facility] [address], [place] [address]- 0578 Sep, [facility] [id number] [place] [address] 53925- 5079 Sep, [facility] [address] [place] [address] 94049- 5517 Sep, [facility] [id number] [place] [address] 46800- 8821 Sep, Mild intermittent asthma without complication J45.20 [facility] [address], [place] [address]- 7527 Sep, [facility] [place] [facility] [address] [id number] [place] [address]- 6237 19 Sep, 2017 [facility] [place] [facility] [address] [id number] [place] [address]- 5186 19 Sep, 2017 [facility] [place] [facility] [address] [id number] [place] [address]- 4752 18 Sep, 2017 [facility] [place] [facility] [address] [id number] [place] [address]- 3746 18 Sep, 2017 [facility] [place] [facility] [address] [id number] [place] [address]- 3807 15 Sep, 2017 [facility] [place] [facility] [address] [id number] [place] [address]- 6330 15 Sep, 2017 Essential hypertension I10 [facility] [place] [facility] [address] [id number] [place] [address]- 8699 15 Sep, 2017 [facility] [place] [facility] [address] [id number] [place] [address]- 1194 15 Sep, 2017 [facility] [place] [facility] [address] [id number] [place] [address]- 3020 15 Sep, 2017 [facility] [place] [facility] [address] [id number] [place] [address]- 1559 14 Sep, 2017 [facility] [place] [facility] [address] [id number] [place] [address]- 9635 14 Sep, 2017 [facility] [place] [facility] [address] [id number] [place] [address]- 3692 14 Sep, 2017 [facility] [place] [facility] [address] [id number] [place] [address]- 2278 13 Sep, 2017 [facility] [place] [facility] [address] [id number] [place] [address]- 2196 13 Sep, 2017 [facility] [place] [facility] [address] [id number] [place] [address]- 6678 13 Sep, 2017 [facility] [place] [facility] [address] [id number] [address]- 0729 Sep, [facility] [id number] [place] [address] 69676- 5933 Sep, Mild intermittent asthma without complication J45.20 [facility] [id number] [place] [address] 54022- 9566 August, Essential hypertension I10 [facility] [id number] [place] [address] 98992- 7346 August, BMI 40.0-44.9, adult Z68.41 ; Dorsalgia, unspecified M54.9 ; Allergic state, initial encounter T78.40XA ; Mild intermittent asthma without complication J45.20 and 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 [facility] [id number] [place] [address] 18291- 8798 August, [facility] [id number] [place] [address] 28678- 3681 August, [facility] [id number] [place] [address] 95521- 0679 August, [facility] [id number] [place] [address] 61390- 7679 August, Reactive depression F32.9 [facility] [id number] [place] [address] 94542- 4692 August, [facility] [id number] [place] [address] 81204- 3559 August, [facility] [address] [address]- 8134 August, [facility] [id number] [place] [address] 68088- 2588 August, [facility] [address], [place] [address]- 0877 August, [facility] [id number] [place] [address] 22535- 5700 August, [facility] [address], [place] [address]- 0583 August, [facility] [address] [place] [address] 390863- 4234 August, Muscle spasms of both lower extremities M62.838 ; Essential hypertension I10 and Reactive depression F32.9 [facility] [address] [place] [address] 34799- 1987 August, [facility] [address] [address]- 5302 Jul, [facility] [address] [place] [address] 54785- 4144 Jul, [facility] [id number] [place] [address] 24088- 6970 Jul, [facility] [id number] [place] [address] 27956- 8270 Jul, [facility] [address] [place] [address] 23775- 0844 Jul, [facility] [address] [place] [address] 26324- 7537 Jul, [facility] [address], [place] [address]- 3520 Jul, [facility] [address], [place] [address]- 7589 Jul, [facility] [address], [place] [address]- 6339 Jul, Essential hypertension I10 ; Other chronic pain G89.29 ; Dorsalgia, unspecified M54.9 ; Reactive depression F32.9 ; Mild intermittent asthma without complication J45.20 ; Allergic state, initial encounter T78.40XA and Muscle spasms of both lower extremities M62.838 IMMUNIZATIONS No Known Immunizations SOCIAL HISTORY Never Assessed REASON FOR VISIT Re:RE:Xanax PLAN OF CARE VITAL SIGNS MEDICATIONS Unknown [...]
--- OUTSIDE RECORDS SUMMARY | 2018-01-11 17:13 | XMS REPORT ---
Author Author ROSALINA GRAHAM Organization [facility] Address [address] [place] [address] Care Team Providers Care Apartment Coordinator Name Role Phone ROSALINA GRAHAM Unavailable PROBLEMS Type Condition ICD9-CM Code QII41-HI Code Onset Dates Condition Status SNOMED Code Problem Essential hypertension I10 Active 98435546 Problem Other chronic pain G89.29 Active 59787473 Problem Dorsalgia, unspecified M54.9 Active 748262902 Problem Allergic state, initial encounter T78.40XA Active 221816178 Problem Reactive depression F32.9 Active 35412390 Problem Muscle spasms of both lower extremities M62.838 Active 731088557 Problem Mild intermittent asthma without complication J45.20 Active 485761233 Problem PTSD (post-traumatic stress disorder) F43.10 Active 79601321 Problem Panic disorder F41.0 Active 823736698 Problem Severe episode of recurrent major depressive disorder, without psychotic features F33.2 Active 85817582 Problem Generalized anxiety disorder F41.1 Active 02243812 Problem Chronic obstructive pulmonary disease, unspecified COPD type J44.9 Active 30787395 Problem Falling R29.6 Active 440914801 ALLERGIES No Information ENCOUNTERS Encounter Location Date Diagnosis [facility] [id number], [place] [address] Dec, [facility] [address], [place] [address] 9[address] Nov, [facility] [id number] [place] [address] 27886- 2382 Nov, [facility] [id number] [place] [address] 59222- 0618 Nov, [facility] [id number], [place] [address] 7181 Nov, Essential hypertension I10 [facility] [id number] [place] [address] 25123- 0109 Nov, Severe episode of recurrent major depressive disorder, without psychotic features F33.2 [facility] [id number] [place] [address] 71901- 6208 Nov, Acute pain of left knee M25.562 [facility] [id number] [place] [address] 82796- 4061 Nov, Severe episode of recurrent major depressive disorder, without psychotic features F33.2 ; PTSD (post-traumatic stress disorder) F43.10 ; Panic disorder F41.0 and BMI 40.0-44.9, adult Z68.41 [facility] [id number] [place] [address] 73324- 0081 Oct, [facility] [id number] [place] [address] 72818- 8625 Oct, [facility] [id number] [place] [address] 22603- 6135 Oct, [facility] [id number] [place] [address] 20221- 7682 Oct, [facility] [id number] [place] [address] 04059- 3136 Oct, Dorsalgia, unspecified M54.9 [facility] [id number] [place] [address] 22221- 5857 Oct, Severe episode of recurrent major depressive disorder, without psychotic features F33.2 and Generalized anxiety disorder F41.1 [facility] [id number] [place] [address] 06096- 0570 Oct, [facility] [id number] [place] [address] 30046- 1464 Oct, [facility] [id number] [place] [address] 17603- 8839 Oct, [facility] [address] [address]- 8040 Oct, [facility] [id number] [place] [address] 91081- 3976 Oct, [facility] [id number] [place] [address] 89095- 6495 Oct, [facility] [id number] [place] [address] 67933- 6706 Oct, [facility] [id number] [place] [address] 32224- 9874 Oct, [facility] [id number] [place] [address] 83882- 2579 Sep, Dorsalgia, unspecified M54.9 [facility] [id number] [place] [address] 54158- 2769 Sep, [facility] [id number] [place] [address] 26991- 1780 Sep, [facility] [id number] [place] [address] 34101- 4878 Sep, Falling R29.6 ; Essential hypertension I10 ; Chronic obstructive pulmonary disease, unspecified COPD type J44.9 and BMI 40.0-44.9, adult Z68.41 [facility] [address] [address]- 3610 Sep, [facility] [id number] [place] [address] 77639- 7680 Sep, [facility] [id number] [place] [address] 22533- 6396 Sep, [facility] [id number] [place] [address] 18202- 0177 Sep, Mild intermittent asthma without complication J45.20 [facility] [address] [address]- 4912 Sep, [facility] [place] [facility] [address] [id number] [place] [address]- 0146 19 Sep, 2017 [facility] [place] [facility] [address] [id number] [place] [address]- 0402 19 Sep, 2017 [facility] [place] [facility] [address] [id number] [place] [address]- 2013 18 Sep, 2017 [facility] [place] [facility] [address] [id number] [place] [address]- 7844 18 Sep, 2017 [facility] [place] [facility] [address] [id number] [place] [address]- 4946 15 Sep, 2017 [facility] [place] [facility] [address] [id number] [place] [address]- 5240 15 Sep, 2017 Essential hypertension I10 [facility] [place] [facility] [address] [id number] [place] [address]- 4123 15 Sep, 2017 [facility] [place] [facility] [address] [id number] [place] [address]- 0909 15 Sep, 2017 [facility] [place] [facility] [address] [id number] [place] [address]- 0123 15 Sep, 2017 [facility] [place] [facility] [address] [id number] [place] [address]- 0755 14 Sep, 2017 [facility] [place] [facility] [address] [id number] [place] [address]- 4051 14 Sep, 2017 [facility] [place] [facility] [address] [id number] [place] [address]- 8708 14 Sep, 2017 [facility] [place] [facility] [address] [id number] [place] [address]- 9454 13 Sep, 2017 [facility] [place] [facility] [address] [id number] [place] [address]- 8664 13 Sep, 2017 [facility] [place] [facility] [address] [id number] [place] [address]- 8845 13 Sep, 2017 [facility] [place] [facility] [address] [id number] [address]- 1201 Sep, [facility] [id number] [place] [address] 37475- 5883 Sep, Mild intermittent asthma without complication J45.20 [facility] [id number] [place] [address] 23496- 3338 August, Essential hypertension I10 [facility] [id number] [place] [address] 65710- 2553 August, BMI 40.0-44.9, adult Z68.41 ; Dorsalgia, unspecified M54.9 ; Allergic state, initial encounter T78.40XA ; Mild intermittent asthma without complication J45.20 and 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 [facility] [id number] [place] [address] 15613- 2308 August, [facility] [id number] [place] [address] 22812- 1995 August, [facility] [id number] [place] [address] 05303- 4218 August, [facility] [id number] [place] [address] 54695- 9677 August, Reactive depression F32.9 [facility] [id number] [place] [address] 96999- 4304 August, [facility] [id number] [place] [address] 11146- 8298 August, [facility] [address], [place] [address]- 8241 August, [facility] [id number] [place] [address] 20779- 4697 August, [facility] [address], [place] [address]- 0034 August, [facility] [id number] [place] [address] 26360- 3987 August, [facility] [address], [place] [address]- 6387 August, [facility] [id number] [place] [address] 547331- 3032 August, Muscle spasms of both lower extremities M62.838 ; Essential hypertension I10 and Reactive depression F32.9 [facility] [id number] [place] [address] 92701- 2822 August, [facility] [address], [place] [address]- 4619 Jul, [facility] [id number] [place] [address] 93241- 2276 Jul, [facility] [id number] [place] [address] 08715- 0866 Jul, [facility] [id number] [place] [address] 44860- 4197 Jul, [facility] [id number] [place] [address] 97595- 4427 Jul, [facility] [id number] [place] [address] 98389- 3947 Jul, [facility] [address], [place] [address]- 8562 Jul, [facility] [address], [place] [address]- 4303 Jul, [facility] [address], [place] [address]- 3765 Jul, Essential hypertension I10 ; Other chronic [...]
--- OUTSIDE RECORDS SUMMARY | 2018-01-11 17:14 | XMS REPORT ---
Author Author ROSALINA GRAHAM Organization [facility] [place] [facility] Address [address] [place] [address] Care Team Providers Care Finance Admin Name Role Phone ROASLINA GRAHAM Unavailable PROBLEMS Type Condition ICD9-CM Code TGC77-HA Code Onset Dates Condition Status SNOMED Code Problem Essential hypertension I10 Active 55887460 Problem Other chronic pain G89.29 Active 04661937 Problem Dorsalgia, unspecified M54.9 Active 341223566 Problem Allergic state, initial encounter T78.40XA Active 372015304 Problem Reactive depression F32.9 Active 60875074 Problem Muscle spasms of both lower extremities M62.838 Active 009182406 Problem Mild intermittent asthma without complication J45.20 Active 430504455 Problem PTSD (post-traumatic stress disorder) F43.10 Active 55800383 Problem Panic disorder F41.0 Active 391958261 Problem Severe episode of recurrent major depressive disorder, without psychotic features F33.2 Active 29446390 Problem Generalized anxiety disorder F41.1 Active 61328510 Problem Chronic obstructive pulmonary disease, unspecified COPD type J44.9 Active 80930497 Problem Falling R29.6 Active 057502664 ALLERGIES No Information ENCOUNTERS Encounter Location Date Diagnosis [facility] [place] [facility] [id number], [place] [address]- 1334 Dec, [facility] [place] [facility] [address], [place] [address]- 4964 Nov, [facility] [place] [facility] [address] [place] [address] 39503- 7888 Nov, [facility] [place] [facility] [address] [place] [address] 36997- 5883 Nov, [facility] [place] [facility] [id number], [place] [address]- 5811 Nov, Essential hypertension I10 [facility] [place] [facility] [address] [place] [address] 95678- 9253 Nov, Severe episode of recurrent major depressive disorder, without psychotic features F33.2 [facility] [place] [facility] [id number] [place] [address] 24207- 6586 Nov, Acute pain of left knee M25.562 [facility] [place] [facility] [id number] [place] [address] 43123- 4444 Nov, Severe episode of recurrent major depressive disorder, without psychotic features F33.2 ; PTSD (post-traumatic stress disorder) F43.10 ; Panic disorder F41.0 and BMI 40.0-44.9, adult Z68.41 [facility] [place] [facility] [id number] [place] [address] 76055- 9541 Oct, [facility] [place] [facility] [id number] [place] [address] 98437- 0188 Oct, [facility] [place] [facility] [id number] [place] [address] 00208- 5443 Oct, [facility] [place] [facility] [id number] [place] [address] 45390- 3227 Oct, [facility] [place] [facility] [id number] [place] [address] 00432- 7463 Oct, Dorsalgia, unspecified M54.9 [facility] [place] [facility] [id number] [place] [address] 70866- 4267 Oct, Severe episode of recurrent major depressive disorder, without psychotic features F33.2 and Generalized anxiety disorder F41.1 [facility] [place] [facility] [id number] [place] [address] 59596- 6267 Oct, [facility] [place] [facility] [id number] [place] [address] 43894- 9177 Oct, [facility] [place] [facility] [id number] [place] [address] 97570- 7711 Oct, [facility] [place] [facility] [address], [place] [address]- 3848 Oct, [facility] [place] [facility] [id number] [place] [address] 85551- 4066 Oct, [facility] [place] [facility] [id number] [place] [address] 97139- 5826 Oct, [facility] [place] [facility] [id number] [place] [address] 97121- 6310 Oct, [facility] [place] [facility] [id number] [place] [address] 15061- 4925 Oct, [facility] [place] [facility] [id number] [place] [address] 79346- 5869 Sep, Dorsalgia, unspecified M54.9 [facility] [place] [facility] [id number] [place] [address] 72760- 8650 Sep, [facility] [place] [facility] [id number] [place] [address] 94963- 4799 Sep, [facility] [place] [facility] [address] [place] [address] 15051- 3616 Sep, Falling R29.6 ; Essential hypertension I10 ; Chronic obstructive pulmonary disease, unspecified COPD type J44.9 and BMI 40.0-44.9, adult Z68.41 [facility] [place] [facility] [address], [place] [address]- 4190 Sep, [facility] [place] [facility] [id number] [place] [address] 65095- 3108 Sep, [facility] [place] [facility] [address] [place] [address] 39403- 0014 Sep, [facility] [place] [facility] [id number] [place] [address] 03007- 3797 Sep, Mild intermittent asthma without complication J45.20 [facility] [place] [facility] [address], [place] [address]- 4648 Sep, [facility] [place] [facility] [address] [id number] [place] [address]- 7197 19 Sep, 2017 [facility] [place] [facility] [address] [id number] [place] [address]- 1704 19 Sep, 2017 [facility] [place] [facility] [address] [id number] [place] [address]- 9273 18 Sep, 2017 [facility] [place] [facility] [address] [id number] [place] [address]- 0528 18 Sep, 2017 [facility] [place] [facility] [address] [id number] [place] [address]- 3438 15 Sep, 2017 [facility] [place] [facility] [address] [id number] [place] [address]- 0573 15 Sep, 2017 Essential hypertension I10 [facility] [place] [facility] [address] [id number] [place] [address]- 2350 15 Sep, 2017 [facility] [place] [facility] [address] [id number] [place] [address]- 7035 15 Sep, 2017 [facility] [place] [facility] [address] [id number] [place] [address]- 9869 15 Sep, 2017 [facility] [place] [facility] [address] [id number] [place] [address]- 8678 14 Sep, 2017 [facility] [place] [facility] [address] [id number] [place] [address]- 7438 14 Sep, 2017 [facility] [place] [facility] [address] [id number] [place] [address]- 3491 14 Sep, 2017 [facility] [place] [facility] [address] [id number] [place] [address]- 0631 13 Sep, 2017 [facility] [place] [facility] [address] [id number] [place] [address]- 5099 13 Sep, 2017 [facility] [place] [facility] [address] [id number] [place] [address]- 8550 13 Sep, 2017 [facility] [place] [facility] [address] [id number], [place] [address]- 2623 Sep, [facility] [place] [facility] [id number] [place] [address] 97021- 7787 Sep, Mild intermittent asthma without complication J45.20 [facility] [place] [facility] [id number] [place] [address] 91973- 9143 August, Essential hypertension I10 [facility] [place] [facility] [id number] [place] [address] 23659- 7763 August, BMI 40.0-44.9, adult Z68.41 ; Dorsalgia, unspecified M54.9 ; Allergic state, initial encounter T78.40XA ; Mild intermittent asthma without complication J45.20 and 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 [facility] [place] [facility] [id number] [place] [address] 52520- 6278 August, [facility] [place] [facility] [id number] [place] [address] 96608- 5320 August, [facility] [place] [facility] [id number] [place] [address] 99635- 5864 August, [facility] [place] [facility] [id number] [place] [address] 78203- 3881 August, Reactive depression F32.9 [facility] [place] [facility] [id number] [place] [address] 69935- 2910 August, [facility] [place] [facility] [id number] [place] [address] 77281- 7897 August, [facility] [place] [facility] [address], [place] [address]- 4833 August, [facility] [place] [facility] [id number] [place] [address] 70469- 6494 August, [facility] [place] [facility] [address], [place] [address]- 2988 August, [facility] [place] [facility] [id number] [place] [address] 46455- 7430 August, [facility] [place] [facility] [address], [place] [address]- 2849 August, [facility] [place] [facility] [id number] [place] [address] 545559- 4552 August, Muscle spasms of both lower extremities M62.838 ; Essential hypertension I10 and Reactive depression F32.9 [facility] [place] [facility] [address] [place] [address] 80362- 0637 August, [facility] [place] [facility] [address] [place] [address] 95081- 1292 Jul, [facility] [place] [facility] [id number] [place] [address] 33645- 8484 Jul, [facility] [place] [facility] [id number] [place] [address] 72404- 1122 Jul, [facility] [place] [facility] [id number] [place] [address] 10751- 6677 Jul, [facility] [place] [facility] [address] [place] [address] 62056- 4569 Jul, [facility] [place] [facility] [address] [place] [address] 74105- 8488 Jul, [facility] [place] [facility] [address], [place] [address]- 4282 Jul, [facility] [place] [facility] [address] [place] [address] 57463- 3952 Jul, [facility] [place] [facility] [address], [place] [address]- 7787 Jul, Essential hypertension I10 ; Other chronic pain G89.29 ; Dorsalgia, unspecified M54.9 ; Reactive depression F32.9 ; Mild intermittent asthma without complication J45.20 ; Allergic state, initial encounter T78.40XA and Muscle spasms of both lower extremities M62.838 IMMUNIZATIONS No Known Immunizations SOCIAL HISTORY Never Assessed REASON FOR VISIT Lump/meds PLAN OF CARE VITAL SIGNS MEDICATIONS Unknown [...]
--- OUTSIDE RECORDS SUMMARY | 2018-01-11 17:14 | XMS REPORT ---
Author Author ROSALINA GRAHAM Organization 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 Name Role Phone ROSALINA GRAHAM Unavailable PROBLEMS Type Condition ICD9-CM Code RYR37-EX Code Onset Dates Condition Status SNOMED Code Problem Essential hypertension I10 Active 98637357 Problem Other chronic pain G89.29 Active 17238948 Problem Dorsalgia, unspecified M54.9 Active 310255977 Problem Allergic state, initial encounter T78.40XA Active 330113653 Problem Reactive depression F32.9 Active 30989657 Problem Muscle spasms of both lower extremities M62.838 Active 335723041 Problem Mild intermittent asthma without complication J45.20 Active 644203187 Problem PTSD (post-traumatic stress disorder) F43.10 Active 26088019 Problem Panic disorder F41.0 Active 333903344 Problem Severe episode of recurrent major depressive disorder, without psychotic features F33.2 Active 10924403 Problem Generalized anxiety disorder F41.1 Active 52566299 Problem Chronic obstructive pulmonary disease, unspecified COPD type J44.9 Active 77729756 Problem Falling R29.6 Active 656168085 ALLERGIES No Information ENCOUNTERS Encounter Location Date Diagnosis [facility] [id number] [address] Dec, [facility] [address] [address] Nov, [facility] [id number] [place] [address] 71467- 9373 Nov, [facility] [id number] [place] [address] 84382- 9710 Nov, [facility] [id number] [address] 0[address] Nov, Essential hypertension I10 [facility] [id number] [place] [address] 30975- 6672 Nov, Severe episode of recurrent major depressive disorder, without psychotic features F33.2 [facility] [id number] [place] [address] 96740- 8417 Nov, Acute pain of left knee M25.562 [facility] [id number] [place] [address] 73608- 4022 Nov, Severe episode of recurrent major depressive disorder, without psychotic features F33.2 ; PTSD (post-traumatic stress disorder) F43.10 ; Panic disorder F41.0 and BMI 40.0-44.9, [address] Z[address]41 [facility] [id number] [place] [address] 50329- 6300 Oct, [facility] [id number] [place] [address] 45811- 2345 Oct, [facility] [id number] [place] [address] 73630- 3550 Oct, [facility] [id number] [place] [address] 92152- 7684 Oct, [facility] [id number] [place] [address] 82281- 8771 Oct, Dorsalgia, unspecified M54.9 [facility] [id number] [place] [address] 20445- 0466 Oct, Severe episode of recurrent major depressive disorder, without psychotic features F33.2 and Generalized anxiety disorder F41.1 [facility] [id number] [place] [address] 35192- 3215 Oct, [facility] [id number] [place] [address] 92798- 2734 Oct, [facility] [id number] [place] [address] 96226- 2966 Oct, [facility] [address], [place] [address] 57[address] Oct, [facility] [id number] [place] [address] 72273- 8844 Oct, [facility] [id number] [place] [address] 43470- 2687 Oct, [facility] [id number] [place] [address] 80391- 0729 Oct, [facility] [id number] [place] [address] 05139- 7920 Oct, [facility] [id number] [place] [address] 65705- 8800 Sep, Dorsalgia, unspecified M54.9 [facility] [id number] [place] [address] 65733- 5608 Sep, [facility] [id number] [place] [address] 25843- 6768 Sep, [facility] [id number] [place] [address] 22068- 3529 Sep, Falling R29.6 ; Essential hypertension I10 ; Chronic obstructive pulmonary disease, unspecified COPD type J44.9 and BMI 40.0-44.9, adult Z68.41 [facility] [address], [place] [address] Sep, [facility] [id number] [place] [address] 50313- 4848 Sep, [facility] [id number] [place] [address] 00121- 0013 Sep, [facility] [id number] [place] [address] 11907- 0119 Sep, Mild intermittent asthma without complication J45.20 [facility] [address], [place] [address]- 15[address] Sep, [facility] [place] [facility] [address] [id number] [place] [address]- 7546 19 Sep, 2017 [facility] [place] [facility] [address] [id number] [place] [address]- 2455 19 Sep, 2017 [facility] [place] [facility] [address] [id number] [place] [address]- 5889 18 Sep, 2017 [facility] [place] [facility] [address] [id number] [place] [address]- 4399 18 Sep, 2017 [facility] [place] [facility] [address] [id number] [place] [address]- 6610 15 Sep, 2017 [facility] [place] [facility] [address] [id number] [place] [address]- 3329 15 Sep, 2017 Essential hypertension I10 [facility] [place] [facility] [address] [id number] [place] [address]- 0181 15 Sep, 2017 [facility] [place] [facility] [address] [id number] [place] [address]- 5374 15 Sep, 2017 [facility] [place] [facility] [address] [id number] [place] [address]- 0494 15 Sep, 2017 [facility] [place] [facility] [address] [id number] [place] [address]- 0570 14 Sep, 2017 [facility] [place] [facility] [address] [id number] [place] [address]- 7931 14 Sep, 2017 [facility] [place] [facility] [address] [id number] [place] [address]- 2906 14 Sep, 2017 [facility] [place] [facility] [address] [id number] [place] [address]- 1146 13 Sep, 2017 [facility] [place] [facility] [address] [id number] [place] [address]- 8185 13 Sep, 2017 [facility] [place] [facility] [address] [id number] [place] [address]- 6453 13 Sep, 2017 [facility] [place] [facility] [address] [id number] [address] Sep, [facility] [id number] [place] [address] 31771- 9710 Sep, Mild intermittent asthma without complication J45.20 [facility] [id number] [place] [address] 06459- 6303 August, Essential hypertension I10 [facility] [id number] [place] [address] 83296- 4047 August, BMI 40.0-44.9, adult Z68.41 ; Dorsalgia, unspecified M54.9 ; Allergic state, initial encounter T78.40XA ; Mild intermittent asthma without complication J45.20 and 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 [facility] [id number] [place] [address] 44795- 0225 August, [facility] [id number] [place] [address] 86952- 4382 August, [facility] [id number] [place] [address] 58958- 2894 August, [facility] [id number] [place] [address] 39935- 6402 August, Reactive depression F32.9 [facility] [id number] [place] [address] 45136- 0965 August, [facility] [id number] [place] [address] 02904- 0168 August, [facility] [address], [place] [address]- 1272 August, [facility] [id number] [place] [address] 76653- 6895 August, [facility] [address], [place] [address]- 5732 August, [facility] [id number] [place] [address] 79653- 2723 August, [facility] [address], [place] [address]- 6080 August, [facility] [id number] [place] [address] 174572- 2455 August, Muscle spasms of both lower extremities M62.838 ; Essential hypertension I10 and Reactive depression F32.9 [facility] [id number] [place] [address] 32255- 2004 August, [facility] [address] [address]- 9893 Jul, [facility] [id number] [place] [address] 38749- 6125 Jul, [facility] [id number] [place] [address] 28779- 5151 Jul, [facility] [id number] [place] [address] 16426- 8650 Jul, [facility] [id number] [place] [address] 72293- 6823 Jul, [facility] [id number] [place] [address] 78295- 8479 Jul, [facility] [address], [place] [address]- 2208 Jul, [facility] [id number] [place] [address] 48107- 6674 Jul, [facility] [address], [place] [address]- 8984 Jul, Essential hypertension I10 ; Other chronic pain G89.29 ; Dorsalgia, unspecified M54.9 ; Reactive depression F32.9 ; Mild intermittent asthma without complication J45.20 ; Allergic state, initial encounter T78.40XA and Muscle spasms of both lower extremities M62.838 IMMUNIZATIONS No Known Immunizations SOCIAL HISTORY Never Assessed REASON FOR VISIT Xanax PLAN OF CARE VITAL SIGNS MEDICATIONS Unknown [...]
--- OUTSIDE RECORDS SUMMARY | 2018-01-11 17:14 | XMS REPORT ---
Author Author ROSALINA GRAHAM Organization [facility] Address [address] [place] [address] Care Team Providers Care Aviation Technical Systems Specialist Name Role Phone ROSALINA GRAHAM Unavailable PROBLEMS Type Condition ICD9-CM Code IOF79-EP Code Onset Dates Condition Status SNOMED Code Problem Essential hypertension I10 Active 17416874 Problem Other chronic pain G89.29 Active 11012769 Problem Dorsalgia, unspecified M54.9 Active 244157892 Problem Allergic state, initial encounter T78.40XA Active 621098641 Problem Reactive depression F32.9 Active 11193278 Problem Muscle spasms of both lower extremities M62.838 Active 935726651 Problem Mild intermittent asthma without complication J45.20 Active 006055298 Problem PTSD (post-traumatic stress disorder) F43.10 Active 18840174 Problem Panic disorder F41.0 Active 804254833 Problem Severe episode of recurrent major depressive disorder, without psychotic features F33.2 Active 18100125 Problem Generalized anxiety disorder F41.1 Active 61852443 Problem Chronic obstructive pulmonary disease, unspecified COPD type J44.9 Active 83950960 Problem Falling R29.6 Active 276096940 ALLERGIES No Information ENCOUNTERS Encounter Location Date Diagnosis [facility] [id number], [place] [address]- 8468 Dec, [facility] [id number], [place] [address]- 2549 Nov, [facility] [id number] [address]- 9884 Nov, [facility] [id number] [address]- 4888 Nov, Acute pain of left knee M25.562 [facility] [id number] [place] [address] 79600- 2924 Nov, Severe episode of recurrent major depressive disorder, without psychotic features F33.2 ; PTSD (post-traumatic stress disorder) F43.10 ; Panic disorder F41.0 and BMI 40.0-44.9, adult Z68.41 [facility] [id number] [place] [address] 19833- 9290 Oct, [facility] [id number] [place] [address] 34822- 1983 Oct, [facility] [id number] [place] [address] 99050- 8855 Oct, [facility] [id number] [place] [address] 18741- 0777 Oct, [facility] [id number] [place] [address] 20329- 7651 Oct, Dorsalgia, unspecified M54.9 [facility] [id number] [place] [address] 34334- 3416 Oct, Severe episode of recurrent major depressive disorder, without psychotic features F33.2 and Generalized anxiety disorder F41.1 [facility] [id number] [place] [address] 29861- 8322 Oct, [facility] [address], [place] [address]- 9843 Oct, [facility] [address], [place] [address]- 3132 Oct, [facility] [id number] [place] [address] 91846- 9869 Oct, [facility] [id number] [place] [address] 65368- 4905 Oct, [facility] [address], [place] [address]- 7621 Oct, [facility] [id number] [place] [address] 77149- 8167 Oct, [facility] [id number] [place] [address] 53290- 9248 Oct, [facility] [id number] [place] [address] 77995- 5650 Sep, Dorsalgia, unspecified M54.9 [facility] [id number] [place] [address] 31730- 4007 Sep, [facility] [id number] [place] [address] 69158- 0986 Sep, [facility] [id number] [place] [address] 26335- 3709 Sep, Falling R29.6 ; Essential hypertension I10 ; Chronic obstructive pulmonary disease, unspecified COPD type J44.9 and BMI 40.0-44.9, adult Z68.41 [facility] [id number] [place] [address] 82534- 5814 Sep, [facility] [id number] [place] [address] 43520- 7650 Sep, [facility] [id number] [place] [address] 52754- 6381 Sep, [facility] [id number] [place] [address] 68919- 2946 Sep, Mild intermittent asthma without complication J45.20 [facility] [id number] [place] [address] 85743- 4643 Sep, [facility] [id number] [place] [address] 07909- 5952 Sep, [facility] [id number] [place] [address] 11052- 6274 Sep, [facility] [id number] [place] [address] 52427- 8802 Sep, [facility] [id number] [place] [address] 29430- 9098 18 Sep, 2017 [facility] [id number] [place] [address] 37574- 2595 15 Sep, 2017 [facility] [id number] [place] [address] 80984- 6133 15 Sep, 2017 Essential hypertension I10 [facility] [id number] [place] [address] 98247- 9639 15 Sep, 2017 [facility] [id number] [place] [address] 04697- 9674 15 Sep, 2017 [facility] [id number] [place] [address] 83140- 9911 15 Sep, 2017 [facility] [id number] [place] [address] 66529- 1844 14 Sep, 2017 [facility] [id number] [place] [address] 97780- 8955 14 Sep, 2017 [facility] [id number] [place] [address] 00772- 0257 14 Sep, 2017 [facility] [id number] [place] [address] 64725- 1515 13 Sep, 2017 [facility] [id number] [place] [address] 01013- 7227 13 Sep, 2017 [facility] [id number] [place] [address] 91494- 5214 13 Sep, 2017 [facility] [id number] [place] [address] 73236- 3486 Sep, [facility] [id number] [place] [address] 16807- 2666 05 Sep, 2017 Mild intermittent asthma without complication J45.20 [facility] [address] [address]- 9810 August, Essential hypertension I10 [facility] [address] [place] [address] 05501- 8094 August, BMI 40.0-44.9, adult Z68.41 ; Dorsalgia, unspecified M54.9 ; Allergic state, initial encounter T78.40XA ; Mild intermittent asthma without complication J45.20 and 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 [facility] [id number] [place] [address] 52775- 1570 August, [facility] [address] 55743- 0867 August, [facility] [id number] [place] [address] 29590- 1687 August, [facility] [address] 62351- 7878 August, Reactive depression F32.9 [facility] [id number] [place] [address] 40169- 9477 August, [facility] [id number] [place] [address] 90291- 4851 August, [facility] [id number] [place] [address] 28166- 4098 August, [facility] [id number] [place] [address] 41515- 7086 August, [facility] [id number] [place] [address] 67241- 2780 August, [facility] [id number] [place] [address] 29563- 0781 August, [facility] [id number] [place] [address] 59318- 6085 August, [facility] [id number] [place] [address] 12818- 7680 August, Muscle spasms of both lower extremities M62.838 ; Essential hypertension I10 and Reactive depression F32.9 [facility] [id number] [place] [address] 15340- 7176 August, [facility] [id number], [place] [address]- 1211 Jul, [facility] [address] 2096 Jul, [facility] [address] [address]- 3401 Jul, [facility] [address] [address]- 9785 Jul, [facility] [address] 3658 Jul, [facility] [address] [address]- 5626 Jul, [facility] [address] [address]- 0510 Jul, [facility] [address], [place] [address]- 5781 Jul, [facility] [id number], [place] [address]- 7559 Jul, Essential hypertension I10 ; Other chronic pain G89.29 ; Dorsalgia, unspecified M54.9 ; Reactive depression F32.9 ; Mild intermittent asthma without complication J45.20 ; Allergic state, initial encounter T78.40XA and Muscle spasms of both lower extremities M62.838 IMMUNIZATIONS No Known Immunizations SOCIAL HISTORY Never Assessed REASON FOR VISIT FY PLAN OF CARE VITAL SIGNS MEDICATIONS Unknown [...]
--- OUTSIDE RECORDS SUMMARY | 2018-01-11 17:14 | XMS REPORT ---
Author Author ROSALINA GRAHAM Organization [facility] Address [address] [place] [address] Care Team Providers Care Assembly Person Name Role Phone ROSALINA GRAHAM Unavailable PROBLEMS Type Condition ICD9-CM Code YAW43-RI Code Onset Dates Condition Status SNOMED Code Problem Essential hypertension I10 Active 88956069 Problem Other chronic pain G89.29 Active 13236703 Problem Dorsalgia, unspecified M54.9 Active 719362636 Problem Allergic state, initial encounter T78.40XA Active 587761584 Problem Reactive depression F32.9 Active 43009660 Problem Muscle spasms of both lower extremities M62.838 Active 615578571 Problem Mild intermittent asthma without complication J45.20 Active 111702684 Problem PTSD (post-traumatic stress disorder) F43.10 Active 52233475 Problem Panic disorder F41.0 Active 110592672 Problem Severe episode of recurrent major depressive disorder, without psychotic features F33.2 Active 04538079 Problem Generalized anxiety disorder F41.1 Active 49396442 Problem Chronic obstructive pulmonary disease, unspecified COPD type J44.9 Active 57155596 Problem Falling R29.6 Active 378500138 ALLERGIES No Information ENCOUNTERS Encounter Location Date Diagnosis [facility] [id number] [address] Dec, [facility] [id number] [address] 4742 Nov, [facility] [id number] [address] 3547 Nov, [facility] [id number] [address] 7226 Nov, Acute pain of left knee M25.562 [facility] [id number] [place] [address] 28842- 5336 Nov, Severe episode of recurrent major depressive disorder, without psychotic features F33.2 ; PTSD (post-traumatic stress disorder) F43.10 ; Panic disorder F41.0 and BMI 40.0-44.9, adult Z68.41 [facility] [id number] [place] [address] 40311- 6905 Oct, [facility] [id number] [place] [address] 45001- 8264 Oct, [facility] [id number] [place] [address] 73467- 5157 Oct, [facility] [id number] [place] [address] 88839- 0251 Oct, [facility] [id number] [place] [address] 60815- 2640 Oct, Dorsalgia, unspecified M54.9 [facility] [id number] [place] [address] 57049- 9810 Oct, Severe episode of recurrent major depressive disorder, without psychotic features F33.2 and Generalized anxiety disorder F41.1 [facility] [id number] [place] [address] 26968- 1201 Oct, [facility] [address] [address] 2604 Oct, [facility] [address] [address]- 7069 Oct, [facility] [address] [place] [address] 49913- 3146 Oct, [facility] [id number] [place] [address] 97995- 7247 Oct, [facility] [address] [address]- 1661 Oct, [facility] [id number] [place] [address] 15463- 9395 Oct, [facility] [id number] [place] [address] 18021- 6307 Oct, [facility] [id number] [place] [address] 75622- 5339 Sep, Dorsalgia, unspecified M54.9 [facility] [id number] [place] [address] 89664- 8426 Sep, [facility] [id number] [place] [address] 15729- 1153 Sep, [facility] [id number] [place] [address] 43484- 2755 Sep, Falling R29.6 ; Essential hypertension I10 ; Chronic obstructive pulmonary disease, unspecified COPD type J44.9 and BMI 40.0-44.9, adult Z68.41 [facility] [id number] [place] [address] 42888- 5289 Sep, [facility] [id number] [place] [address] 10273- 9022 Sep, [facility] [id number] [place] [address] 05389- 7936 Sep, [facility] [id number] [place] [address] 67586- 3342 Sep, Mild intermittent asthma without complication J45.20 [facility] [id number] [place] [address] 31862- 9064 Sep, [facility] [id number] [place] [address] 38190- 5816 Sep, [facility] [id number] [place] [address] 50347- 5795 Sep, [facility] [id number] [place] [address] 19707- 2001 Sep, [facility] [id number] [place] [address] 91879- 6912 18 Sep, 2017 [facility] [address] [place] [address] 66982- 6947 15 Sep, 2017 [facility] [id number] [place] [address] 02693- 6224 15 Sep, 2017 Essential hypertension I10 [facility] [address] [place] [address] 14204- 9207 15 Sep, 2017 [facility] [id number] [place] [address] 11976- 3510 15 Sep, 2017 [facility] [address] [place] [address] 58536- 3887 15 Sep, 2017 [facility] [id number] [place] [address] 19961- 7690 14 Sep, 2017 [facility] [id number] [place] [address] 87247- 0282 14 Sep, 2017 [facility] [id number] [place] [address] 67530- 6999 14 Sep, 2017 [facility] [id number] [place] [address] 06700- 6086 13 Sep, 2017 [facility] [address] [place] [address] 08461- 2878 13 Sep, 2017 [facility] [address] [place] [address] 26270- 2046 13 Sep, 2017 [facility] [address] [place] [address] 39125- 7274 Sep, [facility] [id number] [place] [address] 15167- 4558 05 Sep, 2017 Mild intermittent asthma without complication J45.20 [facility] [address] [address]- 0952 August, Essential hypertension I10 [facility] [address] [place] [address] 22729- 0525 August, BMI 40.0-44.9, adult Z68.41 ; Dorsalgia, unspecified M54.9 ; Allergic state, initial encounter T78.40XA ; Mild intermittent asthma without complication J45.20 and 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 [facility] [id number] [place] [address] 56244- 9384 August, [facility] [address] 61186- 4558 August, [facility] [id number] [place] [address] 38555- 6663 August, [facility] [address] 80890- 7101 August, Reactive depression F32.9 [facility] [id number] [place] [address] 49880- 8848 August, [facility] [id number] [place] [address] 28167- 8716 August, [facility] [id number] [place] [address] 86377- 4237 August, [facility] [id number] [place] [address] 76157- 7047 August, [facility] [id number] [place] [address] 73108- 5690 August, [facility] [id number] [place] [address] 28077- 1543 August, [facility] [id number] [place] [address] 66657- 3304 August, [facility] [id number] [place] [address] 23110- 2168 August, Muscle spasms of both lower extremities M62.838 ; Essential hypertension I10 and Reactive depression F32.9 [facility] [id number] [place] [address] 25307- 4484 August, [facility] [id number] [address]- 1226 Jul, [facility] [address] 5206 Jul, [facility] [address] [address]- 9137 Jul, [facility] [address] [address]- 4375 Jul, [facility] [address] 7855 Jul, [facility] [address] [address]- 4431 Jul, [facility] [address] [address]- 1102 Jul, [facility] [address] [address]- 1452 Jul, [facility] [id number] [address]- 8538 Jul, Essential hypertension I10 ; Other chronic pain G89.29 ; Dorsalgia, unspecified M54.9 ; Reactive depression F32.9 ; Mild intermittent asthma without complication J45.20 ; Allergic state, initial encounter T78.40XA and Muscle spasms of both lower extremities M62.838 IMMUNIZATIONS No Known Immunizations SOCIAL HISTORY Never Assessed REASON FOR VISIT Blood pressure PLAN OF CARE VITAL SIGNS MEDICATIONS Unknown [...]
--- OUTSIDE RECORDS SUMMARY | 2018-01-11 17:14 | XMS REPORT ---
Author Author ROSALINA GRAHAM Organization [facility] Address [address] [place] [address] Care Team Providers Care Mri Assistant Name Role Phone ROSALINA GRAHAM Unavailable PROBLEMS Type Condition ICD9-CM Code QIW90-NB Code Onset Dates Condition Status SNOMED Code Problem Essential hypertension I10 Active 68130469 Problem Other chronic pain G89.29 Active 09091715 Problem Dorsalgia, unspecified M54.9 Active 552492776 Problem Allergic state, initial encounter T78.40XA Active 186834831 Problem Reactive depression F32.9 Active 77763088 Problem Muscle spasms of both lower extremities M62.838 Active 438225962 Problem Mild intermittent asthma without complication J45.20 Active 031606959 Problem PTSD (post-traumatic stress disorder) F43.10 Active 75533374 Problem Panic disorder F41.0 Active 328074286 Problem Severe episode of recurrent major depressive disorder, without psychotic features F33.2 Active 44060015 Problem Generalized anxiety disorder F41.1 Active 96160651 Problem Chronic obstructive pulmonary disease, unspecified COPD type J44.9 Active 77082064 Problem Falling R29.6 Active 949486328 ALLERGIES No Information ENCOUNTERS Encounter Location Date Diagnosis [facility] [id number] [address]- 4149 Dec, [facility] [address] [address]- 5363 Nov, [facility] [id number] [place] [address] 03633- 8215 Nov, [facility] [id number] [place] [address] 83513- 7755 Nov, [facility] [id number] [address]- 1646 Nov, Essential hypertension I10 [facility] [id number] [place] [address] 31625- 0566 Nov, Severe episode of recurrent major depressive disorder, without psychotic features F33.2 [facility] [id number] [place] [address] 40132- 9589 Nov, Acute pain of left knee M25.562 [facility] [id number] [place] [address] 02123- 8839 Nov, Severe episode of recurrent major depressive disorder, without psychotic features F33.2 ; PTSD (post-traumatic stress disorder) F43.10 ; Panic disorder F41.0 and BMI 40.0-44.9, adult Z68.41 [facility] [id number] [place] [address] 33171- 2983 Oct, [facility] [id number] [place] [address] 62929- 7256 Oct, [facility] [id number] [place] [address] 66265- 7483 Oct, [facility] [id number] [place] [address] 89145- 7009 Oct, [facility] [id number] [place] [address] 34573- 3461 Oct, Dorsalgia, unspecified M54.9 [facility] [id number] [place] [address] 56853- 3706 Oct, Severe episode of recurrent major depressive disorder, without psychotic features F33.2 and Generalized anxiety disorder F41.1 [facility] [id number] [place] [address] 41430- 8812 Oct, [facility] [id number] [place] [address] 30354- 1219 Oct, [facility] [id number] [place] [address] 86604- 1541 Oct, [facility] [address] [address]- 7158 Oct, [facility] [id number] [place] [address] 14464- 3580 Oct, [facility] [id number] [place] [address] 56439- 4297 Oct, [facility] [id number] [place] [address] 07104- 7189 Oct, [facility] [id number] [place] [address] 23594- 0763 Oct, [facility] [id number] [place] [address] 68829- 3762 Sep, Dorsalgia, unspecified M54.9 [facility] [id number] [place] [address] 89747- 5817 Sep, [facility] [id number] [place] [address] 66690- 0685 Sep, [facility] [id number] [place] [address] 37230- 7830 Sep, Falling R29.6 ; Essential hypertension I10 ; Chronic obstructive pulmonary disease, unspecified COPD type J44.9 and BMI 40.0-44.9, adult Z68.41 [facility] [address] [address]- 1140 Sep, [facility] [id number] [place] [address] 23817- 1088 Sep, [facility] [id number] [place] [address] 48679- 8041 Sep, [facility] [id number] [place] [address] 44937- 0972 Sep, Mild intermittent asthma without complication J45.20 [facility] [address] [address]- 9029 Sep, [facility] [place] [facility] [address] [id number] [place] [address]- 3442 19 Sep, 2017 [facility] [place] [facility] [address] [id number] [place] [address]- 8509 19 Sep, 2017 [facility] [place] [facility] [address] [id number] [place] [address]- 7416 18 Sep, 2017 [facility] [place] [facility] [address] [id number] [place] [address]- 3882 18 Sep, 2017 [facility] [place] [facility] [address] [id number] [place] [address]- 3505 15 Sep, 2017 [facility] [place] [facility] [address] [id number] [place] [address]- 7711 15 Sep, 2017 Essential hypertension I10 [facility] [place] [facility] [address] [id number] [place] [address]- 0327 15 Sep, 2017 [facility] [place] [facility] [address] [id number] [place] [address]- 2323 15 Sep, 2017 [facility] [place] [facility] [address] [id number] [place] [address]- 8922 15 Sep, 2017 [facility] [place] [facility] [address] [id number] [place] [address]- 2972 14 Sep, 2017 [facility] [place] [facility] [address] [id number] [place] [address]- 6878 14 Sep, 2017 [facility] [place] [facility] [address] [id number] [place] [address]- 2016 14 Sep, 2017 [facility] [place] [facility] [address] [id number] [place] [address]- 5730 13 Sep, 2017 [facility] [place] [facility] [address] [id number] [place] [address]- 8323 13 Sep, 2017 [facility] [place] [facility] [address] [id number] [place] [address]- 6194 13 Sep, 2017 [facility] [place] [facility] [address] [id number] [address]- 8111 Sep, [facility] [id number] [place] [address] 79182- 5703 Sep, Mild intermittent asthma without complication J45.20 [facility] [id number] [place] [address] 85669- 7896 August, Essential hypertension I10 [facility] [id number] [place] [address] 85156- 6963 August, BMI 40.0-44.9, adult Z68.41 ; Dorsalgia, unspecified M54.9 ; Allergic state, initial encounter T78.40XA ; Mild intermittent asthma without complication J45.20 and 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 [facility] [id number] [place] [address] 72333- 5500 August, [facility] [id number] [place] [address] 35846- 8617 August, [facility] [id number] [place] [address] 19422- 0172 August, [facility] [id number] [place] [address] 33447- 8300 August, Reactive depression F32.9 [facility] [id number] [place] [address] 49950- 9757 August, [facility] [id number] [place] [address] 66529- 7482 August, [facility] [address] [address]- 1996 August, [facility] [id number] [place] [address] 92863- 2673 August, [facility] [address] [address]- 4795 August, [facility] [id number] [place] [address] 24057- 6530 August, [facility] [address] [address]- 3447 August, [facility] [id number] [place] [address] 331488- 1681 August, Muscle spasms of both lower extremities M62.838 ; Essential hypertension I10 and Reactive depression F32.9 [facility] [address] [place] [address] 16178- 1423 August, [facility] [address] [address]- 3702 Jul, [facility] [id number] [place] [address] 98678- 2944 Jul, [facility] [id number] [place] [address] 36908- 7205 Jul, [facility] [id number] [place] [address] 36964- 4846 Jul, [facility] [id number] [place] [address] 30410- 5870 Jul, [facility] [id number] [place] [address] 74459- 4626 Jul, [facility] [address] [address]- 7817 Jul, [facility] [address], [place] [address]- 5584 Jul, [facility] [address], [place] [address]- 0856 Jul, Essential hypertension I10 ; Other chronic pain G89.29 ; Dorsalgia, unspecified M54.9 ; Reactive depression F32.9 ; Mild intermittent asthma without complication J45.20 ; Allergic state, initial encounter T78.40XA and Muscle spasms of both lower extremities M62.838 IMMUNIZATIONS No Known Immunizations SOCIAL HISTORY Never Assessed REASON FOR VISIT Re:RE:Blood pressure/other PLAN OF CARE VITAL SIGNS MEDICATIONS Medication Instructions Dosage Frequency Start Date End Date Duration Status Lovastatin 20 MG Orally Once a day 2 tablet 24h Jul, Active Zoloft 100 mg Orally Once a day 1 tablet 24h Active Atenolol 25 MG Orally Once a day 2 tablet 24h Active Losartan Potassium 100 mg [...]
--- OUTSIDE RECORDS SUMMARY | 2018-01-11 17:15 | XMS REPORT ---
Author Author ROSALINA GRAHAM Organization [facility] Address [address] [place] [address] Care Team Providers Care Machine Wiper Name Role Phone ROSALINA GRAHAM Unavailable PROBLEMS Type Condition ICD9-CM Code [id number] Code Onset Dates Condition Status SNOMED Code Problem Essential hypertension I10 Active 48620864 Problem Other chronic pain G89.29 Active 68212298 Problem Dorsalgia, unspecified M54.9 Active 872275136 Problem Allergic state, initial encounter T78.40XA Active 973657904 Problem Reactive depression F32.9 Active 99188319 Problem Muscle spasms of both lower extremities M62.838 Active 131732495 Problem Mild intermittent asthma without complication J45.20 Active 827875691 Problem PTSD (post-traumatic stress disorder) F43.10 Active 17181261 Problem Panic disorder F41.0 Active 696112717 Problem Severe episode of recurrent major depressive disorder, without psychotic features F33.2 Active 65101006 Problem Generalized anxiety disorder F41.1 Active 07572389 Problem Chronic obstructive pulmonary disease, unspecified COPD type J44.9 Active 73112106 Problem Falling R29.6 Active 775790402 ALLERGIES No Information ENCOUNTERS Encounter Location Date Diagnosis [facility] [id number] [address] Dec, [facility] [id number], [place] [address] Nov, [facility] [id number], [place] [address] Nov, [facility] [id number], [place] [address] Nov, Acute pain of left knee M25.562 [facility] [id number] [place] [address] 34139- 2233 Nov, Severe episode of recurrent major depressive disorder, without psychotic features F33.2 ; PTSD (post-traumatic stress disorder) F43.10 ; Panic disorder F41.0 and BMI 40.0-44.9, adult Z68.41 [facility] [id number] [place] [address] 85942- 3632 Oct, [facility] [id number] [place] [address] 31548- 8071 Oct, [facility] [id number] [place] [address] 02866- 8695 Oct, [facility] [id number] [place] [address] 20212- 8951 Oct, [facility] [id number] [place] [address] 24257- 2615 Oct, Dorsalgia, unspecified M54.9 [facility] [id number] [place] [address] 77365- 3263 Oct, Severe episode of recurrent major depressive disorder, without psychotic features F33.2 and Generalized anxiety disorder F41.1 [facility] [id number] [place] [address] 03219- 1215 Oct, [facility] [address], [place] [address] 3987 Oct, [facility] [address], [place] [address]- 8179 Oct, [facility] [id number] [place] [address] 68971- 3834 Oct, [facility] [id number] [place] [address] 65181- 3470 Oct, [facility] [address], [place] [address]- 4039 Oct, [facility] [id number] [place] [address] 76777- 4370 Oct, [facility] [id number] [place] [address] 10064- 5699 Oct, [facility] [id number] [place] [address] 49330- 1320 Sep, Dorsalgia, unspecified M54.9 [facility] [id number] [place] [address] 05874- 4579 Sep, [facility] [id number] [place] [address] 71240- 7107 Sep, [facility] [id number] [place] [address] 72368- 4421 Sep, Falling R29.6 ; Essential hypertension I10 ; Chronic obstructive pulmonary disease, unspecified COPD type J44.9 and BMI 40.0-44.9, adult Z68.41 [facility] [id number] [place] [address] 01885- 3408 Sep, [facility] [id number] [place] [address] 42761- 8184 Sep, [facility] [id number] [place] [address] 61024- 1985 Sep, [facility] [id number] [place] [address] 79422- 7085 Sep, Mild intermittent asthma without complication J45.20 [facility] [id number] [place] [address] 25127- 5769 Sep, [facility] [id number] [place] [address] 45796- 1306 Sep, [facility] [id number] [place] [address] 61533- 3456 Sep, [facility] [id number] [place] [address] 51713- 4692 Sep, [facility] [id number] [place] [address] 80603- 5641 18 Sep, 2017 [facility] [id number] [place] [address] 06311- 4022 15 Sep, 2017 [facility] [id number] [place] [address] 64654- 2231 15 Sep, 2017 Essential hypertension I10 [facility] [id number] [place] [address] 35165- 5566 15 Sep, 2017 [facility] [id number] [place] [address] 85419- 5009 15 Sep, 2017 [facility] [id number] [place] [address] 85737- 3017 15 Sep, 2017 [facility] [id number] [place] [address] 41333- 6614 14 Sep, 2017 [facility] [id number] [place] [address] 76173- 7911 14 Sep, 2017 [facility] [id number] [place] [address] 67591- 9935 14 Sep, 2017 [facility] [id number] [place] [address] 17689- 8728 13 Sep, 2017 [facility] [id number] [place] [address] 71637- 3665 13 Sep, 2017 [facility] [id number] [place] [address] 98706- 3564 13 Sep, 2017 [facility] [id number] [place] [address] 74643- 6598 Sep, [facility] [id number] [place] [address] 69386- 7298 05 Sep, 2017 Mild intermittent asthma without complication J45.20 [facility] [address], [place] [address]- 1302 August, Essential hypertension I10 [facility] [id number] [place] [address] 39347- 8379 August, BMI 40.0-44.9, adult Z68.41 ; Dorsalgia, unspecified M54.9 ; Allergic state, initial encounter T78.40XA ; Mild intermittent asthma without complication J45.20 and 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 [facility] [id number] [place] [address] 61622- 8331 August, [facility] [address] 97971- 1463 August, [facility] [id number] [place] [address] 80161- 0346 August, [facility] [address] 71325- 9372 August, Reactive depression F32.9 [facility] [id number] [place] [address] 41683- 5400 August, [facility] [id number] [place] [address] 98640- 6228 August, [facility] [id number] [place] [address] 73039- 2586 August, [facility] [id number] [place] [address] 22649- 9297 August, [facility] [id number] [place] [address] 05955- 0430 August, [facility] [id number] [place] [address] 27483- 7064 August, [facility] [id number] [place] [address] 76178- 1096 August, [facility] [id number] [place] [address] 04321- 7163 August, Muscle spasms of both lower extremities M62.838 ; Essential hypertension I10 and Reactive depression F32.9 [facility] [id number] [place] [address] 66174- 4820 August, [facility] [id number], [place] [address]- 1611 Jul, [facility] [address]- 8226 Jul, [facility] [address], [place] [address]- 3871 Jul, [facility] [address], [place] [address]- 9870 Jul, [facility] [address] 7716 Jul, [facility] [id number] [place] [address] 97468- 3612 Jul, [facility] [address], [place] [address]- 6314 Jul, [facility] [address], [place] [address]- 8494 Jul, [facility] [id number], [place] [address]- 2992 Jul, Essential hypertension I10 ; Other chronic pain G89.29 ; Dorsalgia, unspecified M54.9 ; Reactive depression F32.9 ; Mild intermittent asthma without complication J45.20 ; Allergic state, initial encounter T78.40XA and Muscle spasms of both lower extremities M62.838 IMMUNIZATIONS No Known Immunizations SOCIAL HISTORY Never Assessed REASON FOR VISIT cortisone pain shot PLAN OF CARE VITAL SIGNS MEDICATIONS Unknown [...]
--- OUTSIDE RECORDS SUMMARY | 2018-01-11 17:15 | XMS REPORT ---
Author Author ROSALINA GRAHAM [facility] Address [address] [place] [address] Care Team Providers Care Cupola Tapper Name Role Phone ROSALINA GRAHAM Unavailable PROBLEMS Type Condition ICD9-CM Code CMC39-MJ Code Onset Dates Condition Status SNOMED Code Problem Mild intermittent asthma without complication J45.20 Active 805082228 Problem Essential hypertension I10 Active 29624331 Problem Reactive depression F32.9 Active 98873401 Problem Allergic state, initial encounter T78.40XA Active 015797771 Problem Muscle spasms of both lower extremities M62.838 Active 017476459 Problem Chronic obstructive pulmonary disease, unspecified COPD type J44.9 Active 18872781 Problem Falling R29.6 Active 966763000 Problem Other chronic pain G89.29 Active 63525896 Problem Dorsalgia, unspecified M54.9 Active 947418034 Problem Severe episode of recurrent major depressive disorder, without psychotic features F33.2 Active 72924823 Problem Generalized anxiety disorder F41.1 Active 98460271 ALLERGIES No Information ENCOUNTERS Encounter Location Date Diagnosis [facility] [id number] [place] [address] 75766- 4666 Dec, [facility] [address] [address]- 0447 Nov, [facility] [id number] [place] [address] 89091- 8398 Nov, [facility] [id number] [place] [address] 83882- 6075 Oct, [facility] [id number] [place] [address] 83494- 0201 Oct, [facility] [id number] [place] [address] 53062- 6584 Oct, [facility] [id number] [address]- 1972 Oct, Dorsalgia, unspecified M54.9 [facility] [id number] [place] [address], [place] [address]- 7323 Oct, Severe episode of recurrent major depressive disorder, without psychotic features F33.2 and Generalized anxiety disorder F41.1 [facility] [id number] [place] [address], [place] [address]- 2271 Oct, [facility] [id number] [place] [address], [place] [address]- 5693 Oct, [facility] [id number] [place] [address], [place] [address]- 7982 Oct, [facility] [id number] [place] [address], [place] [address]- 0865 Oct, [facility] [id number] [place] [address] 41349- 4149 Oct, [facility] [id number] [place] [address]- 8002 Oct, [facility] [address] [place] [address], [place] [address]- 7096 Oct, [facility] [address] [place] [address]- 0355 Oct, [facility] [address] [address]- 8045 Sep, Dorsalgia, unspecified M54.9 [facility] [id number] [place] [address]- 7660 Sep, [facility] [address] [address]- 6945 Sep, [facility] [address] [address]- 5681 Sep, Falling R29.6 ; Essential hypertension I10 ; Chronic obstructive pulmonary disease, unspecified COPD type J44.9 and BMI 40.0-44.9, adult Z68.41 [facility] [id number] [place] [address] 19636- 9098 Sep, [facility] [id number] [place] [address] 63632- 9323 Sep, [facility] [id number] [place] [address] 91802- 9270 Sep, [facility] [id number] [place] [address] 79829- 8647 Sep, Mild intermittent asthma without complication J45.20 [facility] [id number] [place] [address] 93923- 2141 Sep, [facility] [id number] [place] [address] 27839- 9732 Sep, [facility] [id number] [place] [address] 50127- 4951 Sep, [facility] [id number] [place] [address] 41074- 3852 Sep, [facility] [id number] [place] [address] 06617- 9979 Sep, [facility] [address] [address]- 8794 Sep, [facility] [address] [place] [address] 97585- 1724 Sep, Essential hypertension I10 [facility] [address] [place] [address] 34171- 6579 Sep, [facility] [id number] [place] [address] 76642- 7010 Sep, [facility] [address] [address]- 3980 Sep, [facility] [id number] [address]- 6678 14 Sep, 2017 [facility] [address] [address]- 4536 14 Sep, 2017 [facility] [address] [address]- 9368 14 Sep, 2017 [facility] [address] [place] [address] 32832- 5322 Sep, [facility] [id number] [place] [address] 19762- 2328 13 Sep, 2017 [facility] [id number] [place] [address] 08343- 3597 Sep, [facility] [id number] [place] [address] 15282- 5050 Sep, [facility] [id number] [place] [address] 67042- 1342 05 Sep, 2017 Mild intermittent asthma without complication J45.20 [facility] [address] [address]- 3332 August, Essential hypertension I10 [facility] [address] [address]- 9492 August, BMI 40.0-44.9, adult Z68.41 ; Dorsalgia, unspecified M54.9 ; Allergic state, initial encounter T78.40XA ; Mild intermittent asthma without complication J45.20 and 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 [facility] [address] [address]- 7903 August, [facility] [id number] [address]- 2008 August, [facility] [address] [address]- 0850 August, [facility] [address] [address]- 4116 August, Reactive depression F32.9 [facility] [address] [address]- 3704 August, [facility] [address] [address]- 1390 August, [facility] [address] [address]- 4434 August, [facility] [id number] [place] [address] 84970- 5760 August, [facility] [id number] [address]- 6009 August, [facility] [address] [place] [address] 34143- 0391 August, [facility] [address] [place] [address] 13750- 9614 August, [facility] [address] [address]- 3477 August, Muscle spasms of both lower extremities M62.838 ; Essential hypertension I10 and Reactive depression F32.9 [facility] [address] [address]- 2526 August, [facility] [address] [address]- 8531 Jul, [facility] [address] [address]- 0007 Jul, [facility] [address] [address]- 2821 Jul, [facility] [id number] [address]- 0723 Jul, [facility] [address] [address]- 0856 Jul, [facility] [id number] [address]- 5850 Jul, [facility] [address] [facility] [id number] [address]- 4120 Jul, [facility] [address] [facility] [id number] [address]- 3536 Jul, [facility] [address] [facility] [id number] 8836 Jul, Essential hypertension I10 ; Other chronic pain G89.29 ; Dorsalgia, unspecified M54.9 ; Reactive depression F32.9 ; Mild intermittent asthma without complication J45.20 ; Allergic state, initial encounter T78.40XA and Muscle spasms of both lower extremities M62.838 IMMUNIZATIONS No Known Immunizations SOCIAL HISTORY Never Assessed REASON FOR VISIT PLAN OF CARE VITAL SIGNS MEDICATIONS Medication Instructions Dosage Frequency Start Date End Date Duration Status Xanax 0.5 MG Orally Twice a day 1 tablet 12h Jul, 28 days Active RESULTS No Results PROCEDURES No Known procedures INSTRUCTIONS MEDICATIONS ADMINISTERED No Known Medications MEDICAL (GENERAL) HISTORY Type Description Date Medical History Possible dementia Surgical History Right knee surgery 03/2017 Surgical History Right knee surgery 08/20/2017
--- OUTSIDE RECORDS SUMMARY | 2018-01-11 17:15 | XMS REPORT ---
Author Author ROSALINA GRAHAM [facility] Address [address] [place] [address] Care Team Providers Care Top And Seat Cover Fitter Name Role Phone ROSALINA GRAHAM Unavailable PROBLEMS Type Condition ICD9-CM Code [id number] Code Onset Dates Condition Status SNOMED Code Problem Mild intermittent asthma without complication J45.20 Active 323471905 Problem Essential hypertension I10 Active 03846070 Problem Reactive depression F32.9 Active 95241130 Problem Allergic state, initial encounter T78.40XA Active 043302704 Problem Muscle spasms of both lower extremities M62.838 Active 625589466 Problem Chronic obstructive pulmonary disease, unspecified COPD type J44.9 Active 82708610 Problem Falling R29.6 Active 123678831 Problem Other chronic pain G89.29 Active 37521951 Problem Dorsalgia, unspecified M54.9 Active 001397058 Problem Severe episode of recurrent major depressive disorder, without psychotic features F33.2 Active 81765386 Problem Generalized anxiety disorder F41.1 Active 65161357 ALLERGIES No Information ENCOUNTERS Encounter Location Date Diagnosis [facility] [id number] [place] [address] 00039- 3631 Dec, [facility] [address] [address] 4151 Nov, [facility] [id number] [place] [address] 10087- 6676 Nov, [facility] [id number] [place] [address] 39275- 3948 Oct, [facility] [id number] [place] [address] 36969- 3032 Oct, [facility] [id number] [place] [address] 78839- 1405 Oct, [facility] [address] [place] [address] 57[address] Oct, Dorsalgia, unspecified M54.9 [facility] [id number] [place] [address], [place] [address]- 14[address] Oct, Severe episode of recurrent major depressive disorder, without psychotic features F33.2 and Generalized anxiety disorder F41.1 [facility] [id number] [place] [address], [place] [address]- 8675 Oct, [facility] [id number] [place] [address], [place] [address]- 2872 Oct, [facility] [id number] [place] [address], [place] [address]- 8198 Oct, [facility] [id number] [place] [address], [place] [address]- 1577 Oct, [facility] [id number] [place] [address] 73616- 8276 Oct, [facility] [address] [place] [address]- 4168 Oct, [facility] [id number] [place] [address], [place] [address]- 3584 Oct, [facility] [address] [place] [address]- 2326 Oct, [facility] [address], [place] [address]- 3327 Sep, Dorsalgia, unspecified M54.9 [facility] [address] [place] [address]- 8552 Sep, [facility] [address], [place] [address]- 9406 Sep, [facility] [address], [place] [address]- 3229 Sep, Falling R29.6 ; Essential hypertension I10 ; Chronic obstructive pulmonary disease, unspecified COPD type J44.9 and BMI 40.0-44.9, adult Z68.41 [facility] [id number] [place] [address] 63213- 0591 Sep, [facility] [id number] [place] [address] 57715- 8742 Sep, [facility] [id number] [place] [address] 64768- 2885 Sep, [facility] [id number] [place] [address] 59064- 3566 Sep, Mild intermittent asthma without complication J45.20 [facility] [id number] [place] [address] 96711- 0847 Sep, [facility] [id number] [place] [address] 63120- 5726 Sep, [facility] [id number] [place] [address] 10335- 3207 Sep, [facility] [id number] [place] [address] 47557- 5478 Sep, [facility] [id number] [place] [address] 42507- 7946 Sep, [facility] [address], [place] [address]- 8062 Sep, [facility] [id number] [place] [address] 79398- 3397 Sep, Essential hypertension I10 [facility] [address] [place] [address] 14943- 0574 Sep, [facility] [id number] [place] [address] 42386- 8322 Sep, [facility] [address], [place] [address]- 1406 Sep, [facility] [id number] [address]- 7073 14 Sep, 2017 [facility] [address], [place] [address]- 5369 14 Sep, 2017 [facility] [address], [place] [address]- 6524 14 Sep, 2017 [facility] [address] [place] [address] 11667- 0654 Sep, [facility] [id number] [place] [address] 30618- 8945 13 Sep, 2017 [facility] [id number] [place] [address] 94721- 1055 Sep, [facility] [id number] [place] [address] 72359- 6078 Sep, [facility] [id number] [place] [address] 42179- 3573 05 Sep, 2017 Mild intermittent asthma without complication J45.20 [facility] [address], [place] [address]- 6611 August, Essential hypertension I10 [facility] [address], [place] [address]- 6864 August, BMI 40.0-44.9, adult Z68.41 ; Dorsalgia, unspecified M54.9 ; Allergic state, initial encounter T78.40XA ; Mild intermittent asthma without complication J45.20 and 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 [facility] [address], [place] [address]- 3918 August, [facility] [id number] [address]- 4069 August, [facility] [address], [place] [address]- 2795 August, [facility] [address], [place] [address]- 1701 August, Reactive depression F32.9 [facility] [address], [place] [address]- 4742 August, [facility] [address], [place] [address]- 8257 August, [facility] [address], [place] [address]- 1032 August, [facility] [id number] [place] [address] 14365- 8205 August, [facility] [id number] [place] [address]- 6902 August, [facility] [id number] [place] [address] 76371- 9758 August, [facility] [address] [place] [address] 98974- 4442 August, [facility] [address], [place] [address]- 0265 August, Muscle spasms of both lower extremities M62.838 ; Essential hypertension I10 and Reactive depression F32.9 [facility] [address], [place] [address]- 4337 August, [facility] [address], [place] [address]- 5518 Jul, [facility] [address], [place] [address]- 0039 Jul, [facility] [address], [place] [address]- 8249 Jul, [facility] [id number], [place] [address]- 2612 Jul, [facility] [address], [place] [address]- 1706 Jul, [facility] [id number] 5926 Jul, [facility] [address] [facility] [id number] [address]- 9259 Jul, [facility] [address] [facility] [id number], [place] [address]- 4866 Jul, [facility] [address] [facility] [id number] [address]- 0776 Jul, Essential hypertension I10 ; Other chronic pain G89.29 ; Dorsalgia, unspecified M54.9 ; Reactive depression F32.9 ; Mild intermittent asthma without complication J45.20 ; Allergic state, initial encounter T78.40XA and Muscle spasms of both lower extremities M62.838 IMMUNIZATIONS No Known Immunizations SOCIAL HISTORY Never Assessed REASON FOR VISIT Alprazolam er 1mg PLAN OF CARE VITAL SIGNS MEDICATIONS Unknown Medications RESULTS No Results PROCEDURES No Known procedures INSTRUCTIONS MEDICATIONS ADMINISTERED No Known Medications MEDICAL (GENERAL) HISTORY Type Description Date Medical History Possible dementia Surgical History Right knee surgery 03/2017 Surgical History Right knee surgery 08/20/2017
--- OUTSIDE RECORDS SUMMARY | 2018-01-11 17:15 | XMS REPORT ---
Author Author ROSALINA GRAHAM [facility] [address] Address [address] [place] [address] Care Team Providers Care Supervisor Trust Accounts Name Role Phone ROSALINA GRAHAM Unavailable PROBLEMS Type Condition ICD9-CM Code GPY39-SR Code Onset Dates Condition Status SNOMED Code Problem Mild intermittent asthma without complication J45.20 Active 820984107 Problem Essential hypertension I10 Active 15581658 Problem Reactive depression F32.9 Active 67721535 Problem Allergic state, initial encounter T78.40XA Active 559156966 Problem Muscle spasms of both lower extremities M62.838 Active 769836852 Problem Chronic obstructive pulmonary disease, unspecified COPD type J44.9 Active 71763025 Problem Falling R29.6 Active 714433319 Problem Other chronic pain G89.29 Active 74768272 Problem Dorsalgia, unspecified M54.9 Active 144118321 Problem Severe episode of recurrent major depressive disorder, without psychotic features F33.2 Active 81480283 Problem Generalized anxiety disorder F41.1 Active 13209774 ALLERGIES No Information ENCOUNTERS Encounter Location Date Diagnosis [facility] [id number] [place] [address] 52896- 3604 Dec, [facility] [address], [place] [address]- 7198 Nov, [facility] [id number] [place] [address] 70028- 5907 Nov, [facility] [id number] [place] [address] 22970- 2264 Oct, [facility] [id number] [place] [address] 58737- 0970 Oct, [facility] [address] [place] [address] 26077- 4120 Oct, [facility] [address] [place] [address]- 2106 Oct, Dorsalgia, unspecified M54.9 [facility] [id number] [place] [address], [place] [address]- 2468 Oct, Severe episode of recurrent major depressive disorder, without psychotic features F33.2 and Generalized anxiety disorder F41.1 [facility] [id number] [place] [address], [place] [address]- 3066 Oct, [facility] [id number] [place] [address], [place] [address]- 1109 Oct, [facility] [id number] [place] [address], [place] [address]- 8105 Oct, [facility] [id number] [place] [address], [place] [address]- 6462 Oct, [facility] [id number] [place] [address] 01629- 6558 Oct, [facility] [id number] [place] [address]- 5331 Oct, [facility] [id number] [place] [address], [place] [address]- 9705 Oct, [facility] [address] [place] [address]- 3599 Oct, [facility] [address], [place] [address]- 5858 Sep, Dorsalgia, unspecified M54.9 [facility] [address] [place] [address]- 8398 Sep, [facility] [address], [place] [address]- 5274 Sep, [facility] [address], [place] [address]- 4555 Sep, Falling R29.6 ; Essential hypertension I10 ; Chronic obstructive pulmonary disease, unspecified COPD type J44.9 and BMI 40.0-44.9, adult Z68.41 [facility] [id number] [place] [address] 58545- 0030 Sep, [facility] [id number] [place] [address] 30489- 0034 Sep, [facility] [id number] [place] [address] 56380- 5148 Sep, [facility] [id number] [place] [address] 61918- 8605 Sep, Mild intermittent asthma without complication J45.20 [facility] [id number] [place] [address] 34066- 7763 Sep, [facility] [id number] [place] [address] 71080- 0508 Sep, [facility] [id number] [place] [address] 46065- 4061 Sep, [facility] [id number] [place] [address] 05415- 9203 Sep, [facility] [id number] [place] [address] 44034- 8081 Sep, [facility] [address], [place] [address]- 5492 Sep, [facility] [address] [place] [address] 27010- 0906 Sep, Essential hypertension I10 [facility] [address] [place] [address] 80626- 4023 Sep, [facility] [id number] [place] [address] 07447- 6787 Sep, [facility] [address], [place] [address]- 2269 Sep, [facility] [id number], [place] [address]- 4309 14 Sep, 2017 [facility] [address], [place] [address]- 0118 14 Sep, 2017 [facility] [address], [place] [address]- 6794 14 Sep, 2017 [facility] [address] [place] [address] 29355- 8407 Sep, [facility] [id number] [place] [address] 74318- 0929 13 Sep, 2017 [facility] [id number] [place] [address] 95693- 7872 Sep, [facility] [id number] [place] [address] 57143- 2349 Sep, [facility] [id number] [place] [address] 95204- 3518 05 Sep, 2017 Mild intermittent asthma without complication J45.20 [facility] [address], [place] [address]- 6129 August, Essential hypertension I10 [facility] [address], [place] [address]- 0501 August, BMI 40.0-44.9, adult Z68.41 ; Dorsalgia, unspecified M54.9 ; Allergic state, initial encounter T78.40XA ; Mild intermittent asthma without complication J45.20 and 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 [facility] [address], [place] [address]- 3690 August, [facility] [id number], [place] [address]- 2622 August, [facility] [address], [place] [address]- 9193 August, [facility] [address], [place] [address]- 9570 August, Reactive depression F32.9 [facility] [address], [place] [address]- 7268 August, [facility] [address], [place] [address]- 0016 August, [facility] [address], [place] [address]- 1195 August, [facility] [id number] [place] [address] 94516- 4094 August, [facility] [id number] [place] [address]- 5820 August, [facility] [address] [place] [address] 62908- 0412 August, [facility] [address] [place] [address] 37040- 0777 August, [facility] [address], [place] [address]- 5093 August, Muscle spasms of both lower extremities M62.838 ; Essential hypertension I10 and Reactive depression F32.9 [facility] [address], [place] [address]- 7949 August, [facility] [address], [place] [address]- 8875 Jul, [facility] [address], [place] [address]- 6908 Jul, [facility] [address], [place] [address]- 8815 Jul, [facility] [id number], [place] [address]- 2635 Jul, [facility] [address], [place] [address]- 5581 Jul, [facility] [id number], [place] [address]- 4160 Jul, [facility] [address] [facility] [id number]- 9816 Jul, [facility] [address] [facility] [id number], [place] [address]- 1868 Jul, [facility] [address] [facility] [id number]- 7766 Jul, Essential hypertension I10 ; Other chronic pain G89.29 ; Dorsalgia, unspecified M54.9 ; Reactive depression F32.9 ; Mild intermittent asthma without complication J45.20 ; Allergic state, initial encounter T78.40XA and Muscle spasms of both lower extremities M62.838 IMMUNIZATIONS No Known Immunizations SOCIAL HISTORY Never Assessed REASON FOR VISIT Re:RE:Alprazolam er 1mg PLAN OF CARE VITAL SIGNS MEDICATIONS Unknown Medications RESULTS No Results PROCEDURES No Known procedures INSTRUCTIONS MEDICATIONS ADMINISTERED No Known Medications MEDICAL (GENERAL) HISTORY Type Description Date Medical History Possible dementia Surgical History Right knee surgery 03/2017 Surgical History Right knee surgery 08/20/2017
--- OUTSIDE RECORDS SUMMARY | 2018-01-11 17:16 | XMS REPORT ---
Author Author ROSALINA GRAHAM [facility] Address [address] [place] [address] Care Team Providers Care Mitochondrial Disorders Counselor Name Role Phone ROSALINA GRAHAM Unavailable PROBLEMS Type Condition ICD9-CM Code IXY15-OA Code Onset Dates Condition Status SNOMED Code Problem Mild intermittent asthma without complication J45.20 Active 856671250 Problem Essential hypertension I10 Active 68352981 Problem Reactive depression F32.9 Active 57171078 Problem Allergic state, initial encounter T78.40XA Active 498315075 Problem Muscle spasms of both lower extremities M62.838 Active 946252228 Problem Chronic obstructive pulmonary disease, unspecified COPD type J44.9 Active 67999092 Problem Falling R29.6 Active 125106663 Problem Other chronic pain G89.29 Active 35448080 Problem Dorsalgia, unspecified M54.9 Active 460449786 Problem Severe episode of recurrent major depressive disorder, without psychotic features F33.2 Active 31071204 Problem Generalized anxiety disorder F41.1 Active 08823044 ALLERGIES No Information ENCOUNTERS Encounter Location Date Diagnosis [facility] [id number] [place] [address] 81858- 2465 Dec, [facility] [address] [address] 4147 Nov, [facility] [id number] [place] [address] 56786- 1828 Nov, [facility] [id number] [place] [address] 36648- 9882 Oct, [facility] [id number] [place] [address] 33362- 6121 Oct, [facility] [id number] [place] [address] 24212- 1434 Oct, [facility] [address] [place] [address]- 5297 Oct, Dorsalgia, unspecified M54.9 [facility] [id number] [place] [address], [place] [address]- 3925 Oct, Severe episode of recurrent major depressive disorder, without psychotic features F33.2 and Generalized anxiety disorder F41.1 [facility] [id number] [place] [address], [place] [address]- 0701 Oct, [facility] [id number] [place] [address], [place] [address]- 0420 Oct, [facility] [id number] [place] [address], [place] [address]- 9641 Oct, [facility] [id number] [place] [address], [place] [address]- 1023 Oct, [facility] [id number] [place] [address] 68798- 6192 Oct, [facility] [address] [place] [address]- 7025 Oct, [facility] [id number] [place] [address], [place] [address]- 8126 Oct, [facility] [id number] [place] [address]- 6406 Oct, [facility] [address] [address]- 6645 Sep, Dorsalgia, unspecified M54.9 [facility] [id number] [place] [address]- 7475 Sep, [facility] [address] [address]- 1687 Sep, [facility] [address] [address]- 3503 Sep, Falling R29.6 ; Essential hypertension I10 ; Chronic obstructive pulmonary disease, unspecified COPD type J44.9 and BMI 40.0-44.9, adult Z68.41 [facility] [id number] [place] [address] 40661- 7332 Sep, [facility] [id number] [place] [address] 27164- 5678 Sep, [facility] [id number] [place] [address] 11942- 6707 Sep, [facility] [id number] [place] [address] 53485- 1449 Sep, Mild intermittent asthma without complication J45.20 [facility] [id number] [place] [address] 75888- 5777 Sep, [facility] [id number] [place] [address] 37224- 5100 Sep, [facility] [id number] [place] [address] 34707- 9506 Sep, [facility] [id number] [place] [address] 39055- 7532 Sep, [facility] [id number] [place] [address] 11443- 2210 Sep, [facility] [address] [address]- 7772 Sep, [facility] [id number] [place] [address] 93929- 5031 Sep, Essential hypertension I10 [facility] [id number] [place] [address] 51367- 7914 Sep, [facility] [id number] [place] [address] 76449- 7186 Sep, [facility] [address] [address]- 6106 Sep, [facility] [id number] [address]- 9106 14 Sep, 2017 [facility] [address] [address]- 7050 14 Sep, 2017 [facility] [address] [address]- 4925 14 Sep, 2017 [facility] [id number] [place] [address] 50207- 8034 Sep, [facility] [id number] [place] [address] 58797- 4799 13 Sep, 2017 [facility] [id number] [place] [address] 11461- 7802 Sep, [facility] [id number] [place] [address] 89793- 5209 Sep, [facility] [id number] [place] [address] 97219- 2972 05 Sep, 2017 Mild intermittent asthma without complication J45.20 [facility] [address] [address]- 9844 August, Essential hypertension I10 [facility] [address] [address]- 7673 August, BMI 40.0-44.9, adult Z68.41 ; Dorsalgia, unspecified M54.9 ; Allergic state, initial encounter T78.40XA ; Mild intermittent asthma without complication J45.20 and 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 [facility] [address] [address]- 6020 August, [facility] [id number] [address]- 5900 August, [facility] [address] [address]- 0665 August, [facility] [address] [address]- 4580 August, Reactive depression F32.9 [facility] [address] [address]- 4550 August, [facility] [address] [address]- 8980 August, [facility] [address] [address]- 1770 August, [facility] [id number] [place] [address] 88309- 9081 August, [facility] [id number] [place] [address]- 8598 August, [facility] [id number] [place] [address] 24970- 4987 August, [facility] [id number] [place] [address] 35551- 4673 August, [facility] [address] [address]- 1933 August, Muscle spasms of both lower extremities M62.838 ; Essential hypertension I10 and Reactive depression F32.9 [facility] [address] [address]- 1327 August, [facility] [address] [address]- 7558 Jul, [facility] [address] [address]- 7154 Jul, [facility] [address] [address]- 9306 Jul, [facility] [id number] [address]- 8055 Jul, [facility] [address] [address]- 1011 Jul, [facility] [id number] 2616 Jul, [facility] [address] [facility] [id number] [address]- 0345 Jul, [facility] [address] [facility] [id number] [address]- 1166 Jul, [facility] [address] [facility] [id number] [address]- 9686 Jul, Essential hypertension I10 ; Other chronic pain G89.29 ; Dorsalgia, unspecified M54.9 ; Reactive depression F32.9 ; Mild intermittent asthma without complication J45.20 ; Allergic state, initial encounter T78.40XA and Muscle spasms of both lower extremities M62.838 IMMUNIZATIONS No Known Immunizations SOCIAL HISTORY Never Assessed REASON FOR VISIT Xanax PLAN OF CARE VITAL SIGNS MEDICATIONS Medication Instructions Dosage Frequency Start Date End Date Duration Status Xanax XR 1 MG Orally Once a day 1 tablet in the morning 24h 28 days Active Lovastatin 40 mg Orally Once a day 1 tablet with a meal 24h Jul, 30 day(s) Active RESULTS No Results PROCEDURES No Known procedures INSTRUCTIONS MEDICATIONS ADMINISTERED No Known Medications MEDICAL (GENERAL) HISTORY Type Description Date Medical History Possible dementia Surgical History Right knee surgery 03/2017 Surgical History Right knee surgery 08/20/2017
--- OUTSIDE RECORDS SUMMARY | 2018-01-11 17:16 | XMS REPORT ---
Author Author ROSALINA GRAHAM [facility] Address [address] [place] [address] Care Team Providers Care Supervisor Home Restoration Service Name Role Phone ROSALINA GRAHAM Unavailable PROBLEMS Type Condition ICD9-CM Code NLY63-DK Code Onset Dates Condition Status SNOMED Code Problem Mild intermittent asthma without complication J45.20 Active 666462765 Problem Essential hypertension I10 Active 58869742 Problem Reactive depression F32.9 Active 54239714 Problem Allergic state, initial encounter T78.40XA Active 483550309 Problem Muscle spasms of both lower extremities M62.838 Active 531222289 Problem Chronic obstructive pulmonary disease, unspecified COPD type J44.9 Active 12517148 Problem Falling R29.6 Active 680837375 Problem Other chronic pain G89.29 Active 37291888 Problem Dorsalgia, unspecified M54.9 Active 831177747 Problem Severe episode of recurrent major depressive disorder, without psychotic features F33.2 Active 58540352 Problem Generalized anxiety disorder F41.1 Active 49545031 ALLERGIES No Information ENCOUNTERS Encounter Location Date Diagnosis [facility] [address] [place] [address] 96942- 0097 Dec, [facility] [address], [place] [address]- 0667 Nov, [facility] [id number] [place] [address] 16289- 9787 Nov, [facility] [id number] [place] [address] 32110- 6518 Oct, [facility] [id number] [place] [address] 12112- 8947 Oct, [facility] [address] [place] [address] 72525- 3960 Oct, [facility] [address] [place] [address]- 0630 Oct, Dorsalgia, unspecified M54.9 [facility] [id number] [place] [address], [place] [address]- 8644 Oct, Severe episode of recurrent major depressive disorder, without psychotic features F33.2 and Generalized anxiety disorder F41.1 [facility] [id number] [place] [address], [place] [address]- 0843 Oct, [facility] [id number] [place] [address], [place] [address]- 7984 Oct, [facility] [id number] [place] [address], [place] [address]- 8574 Oct, [facility] [id number] [place] [address], [place] [address]- 5844 Oct, [facility] [id number] [place] [address] 87739- 8313 Oct, [facility] [address] [place] [address]- 9447 Oct, [facility] [id number] [place] [address], [place] [address]- 6257 Oct, [facility] [address] [place] [address]- 4647 Oct, [facility] [address], [place] [address]- 5307 Sep, Dorsalgia, unspecified M54.9 [facility] [address] [place] [address]- 7752 Sep, [facility] [address], [place] [address]- 9397 Sep, [facility] [address], [place] [address]- 9256 Sep, Falling R29.6 ; Essential hypertension I10 ; Chronic obstructive pulmonary disease, unspecified COPD type J44.9 and BMI 40.0-44.9, adult Z68.41 [facility] [id number] [place] [address] 19532- 3830 Sep, [facility] [id number] [place] [address] 93536- 1498 Sep, [facility] [id number] [place] [address] 41359- 9050 Sep, [facility] [id number] [place] [address] 98658- 3023 Sep, Mild intermittent asthma without complication J45.20 [facility] [id number] [place] [address] 94163- 1674 Sep, [facility] [id number] [place] [address] 42529- 2489 Sep, [facility] [id number] [place] [address] 00036- 4752 Sep, [facility] [id number] [place] [address] 63559- 7840 Sep, [facility] [id number] [place] [address] 34795- 6447 Sep, [facility] [address], [place] [address]- 8408 Sep, [facility] [id number] [place] [address] 49251- 8080 Sep, Essential hypertension I10 [facility] [address] [place] [address] 78565- 0847 Sep, [facility] [id number] [place] [address] 64083- 5759 Sep, [facility] [address], [place] [address]- 1185 Sep, [facility] [id number] [address]- 8835 14 Sep, 2017 [facility] [address], [place] [address]- 2075 14 Sep, 2017 [facility] [address], [place] [address]- 2328 14 Sep, 2017 [facility] [address] [place] [address] 60490- 6935 Sep, [facility] [id number] [place] [address] 76629- 0457 13 Sep, 2017 [facility] [id number] [place] [address] 51761- 8220 Sep, [facility] [id number] [place] [address] 69594- 0939 Sep, [facility] [id number] [place] [address] 14844- 2710 05 Sep, 2017 Mild intermittent asthma without complication J45.20 [facility] [address] [address]- 1006 August, Essential hypertension I10 [facility] [address], [place] [address]- 9045 August, BMI 40.0-44.9, adult Z68.41 ; Dorsalgia, unspecified M54.9 ; Allergic state, initial encounter T78.40XA ; Mild intermittent asthma without complication J45.20 and 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 [facility] [address] [address]- 8384 August, [facility] [id number] [address]- 0434 August, [facility] [address], [place] [address]- 0614 August, [facility] [address], [place] [address]- 1078 August, Reactive depression F32.9 [facility] [address], [place] [address]- 9056 August, [facility] [address] [address]- 3100 August, [facility] [address], [place] [address]- 6169 August, [facility] [id number] [place] [address] 33843- 0299 August, [facility] [id number] [place] [address]- 4834 August, [facility] [id number] [place] [address] 75230- 8783 August, [facility] [address] [place] [address] 38608- 5146 August, [facility] [address] [address]- 2652 August, Muscle spasms of both lower extremities M62.838 ; Essential hypertension I10 and Reactive depression F32.9 [facility] [address] [address]- 5496 August, [facility] [address] [address]- 9102 Jul, [facility] [address] [address]- 1545 Jul, [facility] [address] [address]- 9661 Jul, [facility] [id number] [address]- 8389 Jul, [facility] [address] [address]- 5028 Jul, [facility] [id number] [address]- 4901 Jul, [facility] [address] [facility] [id number]- 2555 Jul, [facility] [address] [facility] [id number] 8293 Jul, [facility] [address] [facility] [id number] 9398 Jul, Essential hypertension I10 ; Other chronic pain G89.29 ; Dorsalgia, unspecified M54.9 ; Reactive depression F32.9 ; Mild intermittent asthma without complication J45.20 ; Allergic state, initial encounter T78.40XA and Muscle spasms of both lower extremities M62.838 IMMUNIZATIONS No Known Immunizations SOCIAL HISTORY Never Assessed REASON FOR VISIT LVM PLAN OF CARE VITAL SIGNS MEDICATIONS Unknown Medications RESULTS No Results PROCEDURES No Known procedures INSTRUCTIONS MEDICATIONS ADMINISTERED No Known Medications MEDICAL (GENERAL) HISTORY Type Description Date Medical History Possible dementia Surgical History Right knee surgery 03/2017 Surgical History Right knee surgery 08/20/2017
--- OUTSIDE RECORDS SUMMARY | 2018-01-11 17:16 | XMS REPORT ---
Author Author ROSALINA GRAHAM [facility] Address [address] [place] [address] Care Team Providers Care Python Engineer Name Role Phone ROSALINA GRAHAM Unavailable PROBLEMS Type Condition ICD9-CM Code AIG71-VT Code Onset Dates Condition Status SNOMED Code Problem Mild intermittent asthma without complication J45.20 Active 349644521 Problem Essential hypertension I10 Active 43152039 Problem Reactive depression F32.9 Active 36807325 Problem Allergic state, initial encounter T78.40XA Active 588269840 Problem Muscle spasms of both lower extremities M62.838 Active 496138204 Problem Chronic obstructive pulmonary disease, unspecified COPD type J44.9 Active 54588175 Problem Falling R29.6 Active 924922872 Problem Other chronic pain G89.29 Active 52790055 Problem Dorsalgia, unspecified M54.9 Active 790358139 Problem Severe episode of recurrent major depressive disorder, without psychotic features F33.2 Active 26042867 Problem Generalized anxiety disorder F41.1 Active 95739903 ALLERGIES No Known Allergies ENCOUNTERS Encounter Location Date Diagnosis [facility] [id number] [place] [address] Dec, [facility] [id number] [place] [address] 31827- 9637 Nov, [facility] [id number] [place] [address] 02189- 9902 Nov, [facility] [id number] [place] [address] 39776- 4524 Oct, [facility] [id number] [place] [address] 15799- 1557 Oct, [facility] [id number] [place] [address] 30931- 3366 Oct, [facility] [id number] [place] [address] Oct, Dorsalgia, unspecified M54.9 [facility] [address] [place] [address] Oct, Severe episode of recurrent major depressive disorder, without psychotic features F33.2 and Generalized anxiety disorder F41.1 [facility] [id number] [place] [address], [place] [address] Oct, [facility] [id number] [place] [address] Oct, [facility] [id number] [place] [address], [place] [address] Oct, [facility] [id number] [place] [address] 29394- 1533 Oct, [facility] [id number] [place] [address] 75183- 1649 Oct, [facility] [address] [address] Oct, [facility] [address] [address] Oct, [facility] [address] [address] Oct, [facility] [address] [address] Sep, Dorsalgia, unspecified M54.9 [facility] [address] [address] Sep, [facility] [address] [address] Sep, [facility] [address] [address] Sep, Falling R29.6 ; Essential hypertension I10 ; Chronic obstructive pulmonary disease, unspecified COPD type J44.9 and BMI 40.0-44.9, adult Z68.41 [facility] [id number] [place] [address] 30757- 9378 Sep, [facility] [id number] [place] [address] 68787- 8304 Sep, [facility] [id number] [place] [address] 34367- 1237 Sep, [facility] [id number] [place] [address] 38691- 8050 Sep, Mild intermittent asthma without complication J45.20 [facility] [id number] [place] [address] 50650- 8816 Sep, [facility] [id number] [place] [address] 54788- 7739 Sep, [facility] [id number] [place] [address] 30722- 5589 Sep, [facility] [id number] [place] [address] 00679- 5384 Sep, [facility] [id number] [place] [address] 91617- 0502 Sep, [facility] [id number] [place] [address] 12814- 2556 Sep, [facility] [id number] [place] [address] 48198- 4014 Sep, Essential hypertension I10 [facility] [id number] [place] [address] 42966- 4698 Sep, [facility] [id number] [place] [address] 99466- 3013 Sep, [facility] [address] [address] 77[address] Sep, [facility] [address] [address] 14 Sep, 2017 [facility] [address] [address]- [address] 14 Sep, 2017 [facility] [address] [address]- [address] 14 Sep, 2017 [facility] [id number] [place] [address] 71951- 0254 13 Sep, 2017 [facility] [id number] [place] [address] 75107- 7290 13 Sep, 2017 [facility] [id number] [place] [address] 20582- 3046 Sep, [facility] [id number] [place] [address] 30042- 7561 Sep, [facility] [id number] [place] [address] 51942- 7704 05 Sep, 2017 Mild intermittent asthma without complication J45.20 [facility] [address] [address] August, Essential hypertension I10 [facility] [address] [address] August, BMI 40.0-44.9, adult Z68.41 ; Dorsalgia, unspecified M54.9 ; Allergic state, initial encounter T78.40XA ; Mild intermittent asthma without complication J45.20 and 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 [facility] [address], [place] [address] August, [facility] [address] [address] August, [facility] [address], [place] [address]- [address] August, [facility] [address] [address]- 1702 August, Reactive depression F32.9 [facility] [address] [place] [address]- 5[address] August, [facility] [id number] [address]- 68[address] August, [facility] [address] [place] [address]- 4624 August, [facility] [id number] [address]- 6869 August, [facility] [id number] [place] [address]- 2340 August, [facility] [id number] [place] [address], [place] [address]- 9641 August, [facility] [address] [address]- [address] August, [facility] [address] [address]- 7769 August, Muscle spasms of both lower extremities M62.838 ; Essential hypertension I10 and Reactive depression F32.9 [facility] [address] [address]- 66[address] August, [facility] [address] [address]- 8480 Jul, [facility] [address] [address]- 5146 Jul, [facility] [id number] [address]- 5[address] Jul, [facility] [address] [address]- 6253 Jul, [facility] [id number] [address]- 3048 Jul, [facility] [address] [address]- 8497 Jul, [facility] [address] [facility] [id number] [address] Jul, [facility] [id number] [address]- 5596 Jul, [facility] [address] [facility] [id number] [address] Jul, Essential hypertension I10 ; Other chronic pain G89.29 ; Dorsalgia, unspecified M54.9 ; Reactive depression F32.9 ; Mild intermittent asthma without complication J45.20 ; Allergic state, initial encounter T78.40XA and Muscle spasms of both lower extremities M62.838 IMMUNIZATIONS No Known Immunizations SOCIAL HISTORY Never Assessed REASON FOR VISIT Establish Care PLAN OF CARE Activity Details Follow Up 2 Months Reason: VITAL SIGNS Weight 268 lbs 2017-07-30 Temperature 98 degrees Fahrenheit 2017-07-30 Heart Rate 82 bpm 2017-07-30 Respiratory Rate 20 2017-07-30 Blood pressure systolic 148 mmHg 2017-07-30 Blood pressure diastolic 98 mmHg 2017-07-30 MEDICATIONS Medication Instructions Dosage Frequency Start Date End Date Duration Status Cyclobenzaprine HCl 10 MG Orally Three times a day 1 tablet as needed 8h Active Atenolol 50 MG Orally Once a day 1 tablet 24h Active Losartan Potassium 100 MG Orally Once a day 1 tablet 24h Active Gabapentin 300 MG Orally Once a day 1 capsule before bedtime 24h Active Xanax XR 1 MG Orally Once a day 1 tablet in the morning 24h Active Allergy 12 MG Orally every 12 hrs 1 tablet as needed 12h Active Zoloft 100 MG Orally Once a day 1 tablet 24h Active Mobic 15 MG Orally Once a day 1 tablet 24h Active Singulair 10 MG Orally Once a day 1 tablet in the evening 24h Active Flonase Allergy Relief 50 MCG/ACT Nasally Once a day 1 spray in each nostril 24h Active Folic Acid 1 MG Orally Once a day 1 tablet 24h Active Symbicort 160-4.5 MCG/ACT Inhalation Twice a day 2 puffs 12h Active Levalbuterol Tartrate 45 MCG/ACT Inhalation every 4 hrs 1 puff as needed 4h Active RESULTS No Results PROCEDURES Procedure Date Ordered Result Body Site LAB NOT BILLED BY [facility] July 30, 2017 VENIPUNCT, ROUTINE* July 30, 2017 INSTRUCTIONS MEDICATIONS ADMINISTERED No Known Medications MEDICAL (GENERAL) HISTORY Type Description Date Medical History Possible dementia Surgical History Right knee surgery 03/2017 Surgical History Right knee surgery 08/20/2017
--- NOTE | 2018-01-11 17:24 | ED Back Pain ---
General Chief Complaint: Back Problems Stated Complaint: BACK PAIN Source of Information: Patient Exam Limitations: No Limitations History of Present Illness Date Seen by Provider: Jan 11, 2018 Time Seen by Provider: 17:12 Initial Comments The patient presents to the ER by private conveyance with chief complaint that this morning he was sitting on his couch doing nothing particularly strenuous when he started to feel a recurrence of his low back pain with sciatica down his left buttock and into his left thigh. He's had this pain before. He is also had kidney stones in the past and he says this pain is not the same as kidney stones. He is not having any nausea. He took 2 Advil which helped some with his pain but he knows in the past and Norflex shot has helped because he is having a spasm of the muscles of his low back. He does have Soma but is not tried that yet. He has hydrocodone but he's not use that either. He has a long-standing history of at least 4 years of lumbar back pain and sciatica with multiple MRIs of his entire spine and he has noted cervical spinal stenosis. The patient's not having any incontinence of urine, new numbness or paresthesias nor collapsing his leg or falls. He uses a cane to get around. He does not have a back brace. He has not use any topical creams area Allergies and Home Medications Allergies Coded Allergies: No Known Drug Allergies (Unverified , 09/16/16) Patient Home Medication List Home Medication List Reviewed: Yes Review of Systems Constitutional: No chills, No diaphoresis, No fever EENTM: No ear pain Respiratory: No cough Cardiovascular: No chest pain, No edema Gastrointestinal: No abdominal pain, No constipation, No nausea Genitourinary: No discharge, No dysuria, No incontinence Past Wdlairf-Pxlzga-Hdwiap Hx Patient Social History Alcohol Use: Denies Use Recreational Drug Use: No Smoking Status: Former Smoker Type Used: Cigarettes Recent Foreign Travel: No Contact w/Someone Who Travel: No Physical Exam Vital Signs Vital Signs - First Documented 01/11/18 17:09 Temp 98.0 Pulse 87 Resp 16 B/P (MAP) 161/101 (121) Pulse Ox 97 Capillary Refill : Height, Weight, BMI Height: '" Weight: lbs. oz. kg; BMI Method: General Appearance: WD/WN, Mild Distress HEENT: PERRL/EOMI, Normal ENT Inspection, Pharynx Normal, Moist Mucous Membranes Neck: Full Range of Motion, Normal Inspection, Non Tender, Supple Cardiovascular: Regular Rate, Rhythm, No Edema, Normal Peripheral Pulses Respiratory: Chest Non Tender, Lungs Clear, Normal Breath Sounds, No Accessory Muscle Use, No Respiratory Distress Gastrointestinal: Non Tender, Soft Back: Normal Inspection, Vertebral Tenderness (lumbar and left paraspinous mm TTP. Tenderness to direct palpation over his left L5-S1 facet joint.) Neurologic/Psychiatric: Alert, Oriented x3, No Motor/Sensory Deficits, Normal Mood/Affect Progress/Results/Core Measures Results/Orders Lab Results Laboratory Tests Test 01/11/18 17:36 Range/Units Urine Color YELLOW Urine Clarity CLEAR Urine pH 5 5-9 Urine Specific [place] 1.020 1.016-1.022 Urine Protein 2+ H NEGATIVE Urine Glucose (UA) NEGATIVE NEGATIVE Urine Ketones 1+ H NEGATIVE Urine Nitrite NEGATIVE NEGATIVE Urine Bilirubin 1+ H NEGATIVE Urine Urobilinogen 1 NORMAL MG/DL Urine Leukocyte Esterase 1+ H NEGATIVE Urine RBC (Auto) NEGATIVE NEGATIVE Urine RBC NONE /HPF Urine WBC RARE /HPF Urine Crystals PRESENT H /LPF Urine Calcium Oxalate Crystals LARGE H /LPF Urine Bacteria NEGATIVE /HPF Urine Casts NONE /LPF Urine Mucus LARGE H /LPF Urine Culture Indicated NO My Orders Orders - ROLANDA GIBBONS Ua Culture If Indicated (01/11/18 16:54) Orphenadrine Injection (Norflex Injectio (01/11/18 17:30) Ketorolac Injection (Toradol Injection) (01/11/18 17:30) Medications Given in ED Current Medications Medications Dose Ordered Sig/Judy Route Start Time Stop Time Status Last Admin Dose Admin Ketorolac Tromethamine 30 mg ONCE ONCE IM 01/11/18 17:30 01/11/18 17:31 DC 01/11/18 17:34 30 MG Orphenadrine Citrate 60 mg ONCE ONCE IM 01/11/18 17:30 01/11/18 17:31 DC 01/11/18 17:34 60 MG Vital Signs/I&O 01/11/18 17:09 Temp 98.0 Pulse 87 Resp 16 B/P (MAP) 161/101 (121) Pulse Ox 97 Progress Progress Note : Time: 17:21 Progress Note Norflex, steroid for 5 day, Toradol and NSAIDs with follow-up with PCP in one to 2 weeks. We have ordered a urinalysis to rule out any blood in the urine. Departure Impression Primary Impression: Lumbago with sciatica, left side Qualified Codes: M54.42 - Lumbago with sciatica, left side Disposition: 01 HOME, SELF-CARE Condition: Stable Departure-Patient Inst. Decision time for Depature: 19:05 Referrals: VERENA KAMARA MD (PCP/Family) Primary Care Physician Patient Instructions: Low Back Pain (DC) Add. 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 Prednisone will increase your blood pressure little bit until after you're off the medicine. Start taking Advil 4 tablets 3 times a day for the next 1-2 weeks. After you finished the steroids follow-up with your primary care doctor in the next 1-2 weeks to see if you've had improvement of your symptoms. If you lose control of your bowel or bladder or you start to have falls increased weakness or other worrisome symptoms then you can follow-up with the ER or your primary care doctor. All discharge instructions reviewed with patient and/or family. Voiced understanding. Scripts Prednisone (Prednisone) 20 Mg Tab 40 MG PO DAILY for 5 Days, #10 TAB 0 Refills Prov: ROLANDA GIBBONS 01/11/18 ROLANDA GIBBONS Jan 11, 2018 17:24
[2018-01-11] MEDS ORDERED: SERT100T (17:27)
[2018-01-11] MEDS ORDERED: MELO15TA14 (17:27)
[2018-01-11] MEDS ORDERED: LOSA100T8 (17:27)
[2018-01-11] MEDS ORDERED: MONT10TA21 (17:27)
[2018-01-11] MEDS ORDERED: ATEN50TA (17:27)
[2018-01-11] MEDS ORDERED: FOLI1TAB24 (17:27)
[2018-01-11] MEDS ORDERED: ALPR1TAB (17:27)
[2018-01-11] MEDS ORDERED: CYCL10TA9 (17:27)
[2018-01-11] MEDS ORDERED: GABA-488 (17:27)
[2018-01-11] MEDS ORDERED: ORPHENADRINE 60 MG/2 ML (NORFLEX) AMP IM ONE (17:30)
[2018-01-11] MEDS ORDERED: KETOROLAC 30 MG/ML VIAL IM ONE (17:30)
[2018-01-11 17:45] LABS: CLARITY,URINE CLEAR; COLOR,URINE YELLOW; GLUCOSE, URINE (UA) NEGATIVE (NEGATIVE); KETONES,URINE 1+ (NEGATIVE); LEUKOCYTE ESTERASE ,URINE 1+ (NEGATIVE); NITRITE,URINE NEGATIVE (NEGATIVE); PH,URINE 5 (5-9); PROTEIN,URINE 2+ (NEGATIVE); UROBILINOGEN,URINE 1 MG/DL (NORMAL)
[2018-01-11 18:00] LABS: BACTERIA,URINE NEGATIVE /HPF; BILIRUBIN,URINE 1+ (NEGATIVE); CALCIUM OXALATE CRYSTALS,UR LARGE /LPF; WBC,URINE RARE /HPF
[2018-01-11] MEDS ORDERED: PRD20T PO (19:07)
[2018-01-12 01:29] VITALS: BP 161/101
== END 2018-01-11 19:21 | disposition home or self-care (01) ==
LOC: EDUNIT# 16:53 → ER 16:54
DX: M54.42 Lumbago with sciatica, left side (principal); Z87.442 Personal history of urinary calculi; Z87.891 Personal history of nicotine dependence
CPT/HCPCS: 81000; 96372; 99284

== ENCOUNTER 2018-02-21 20:40 | Outpatient (CLI) | payer OTHER ==
[~2018-02-21 20:40] MED LIST changes: +ALPR1TAB; +ATEN50TA; +CYCL10TA9; +FOLI1TAB24; +GABA-488; -GADOBUTROL 15 MMOL/15 ML (GADAVIST) VIAL IV ONE; +LOSA100T8; +MELO15TA14; +MONT10TA21; +PRD20T PO; +SERT100T
== END 2018-02-22 06:22 | disposition home or self-care (01) ==
LOC: SLEEP 20:40
PROVIDERS: ATTEND Psychiatry & Neurology Neurology
DX: G47.33 Obstructive sleep apnea (adult) (pediatric) (principal); G47.10 Hypersomnia, unspecified; G47.00 Insomnia, unspecified; R06.83 Snoring; F39 Unspecified mood [affective] disorder
CPT/HCPCS: 95811

== ENCOUNTER → 2018-03-15 | Outpatient (CLI) | payer OTHER ==
--- NOTE | 2018-03-15 11:08 | Diagnostic Imaging Report ---
PROCEDURE: MRI left joint lower extremity without contrast. TECHNIQUE: Multiplanar, multisequence MR imaging of the left knee was performed without contrast. COMPARISON: None available. INDICATION: Left knee pain. History of prior knee surgery. FINDINGS: MENISCI Medial meniscus: Truncation of the free edge of the body and posterior horn of the medial meniscus may relate to prior partial meniscectomy. There is a superimposed near-complete radial tear at the junction of posterior horn and body. The body of the medial meniscus is extruded into the medial gutter and has a macerated type appearance. Lateral meniscus: Minimal degenerative free edge tearing in the body of the lateral meniscus. LIGAMENTS ACL: Intact. PCL: Intact. MCL: Intact. LCL: The lateral collateral ligamentous complex is intact. EXTENSOR MECHANISM The extensor mechanism is intact. CARTILAGE Medial compartment: Diffuse chondral thinning throughout the medial compartment. However, there are no areas of full-thickness articular cartilage loss. Lateral compartment: The lateral compartment articular cartilage is preserved without high-grade chondromalacia. Patellofemoral compartment: Low-grade partial-thickness surface fibrillation in the medial and lateral patella facets. BONE No fracture, stress fracture or osteonecrosis. SOFT TISSUE A moderate-sized knee joint effusion is present. No Garcia's cyst. IMPRESSION: 1. Prior partial medial meniscectomy. There is a superimposed near-complete radial tear at the junction of body and posterior horn of the medial meniscus. 2. High-grade partial thickness articular cartilage loss and thinning throughout the medial compartment. 3. Moderate-sized knee joint effusion. Dictated by: Dictated on workstation # [id number]
== END ==
LOC: RAD 08:02
PROVIDERS: ATTEND Orthopaedic Surgery
DX: S83.242A Other tear of medial meniscus, current injury, left knee, initial encounter (principal); M23.92 Unspecified internal derangement of left knee; Z98.890 Other specified postprocedural states
CPT/HCPCS: 73721

== ENCOUNTER 2018-03-31 13:18 | Outpatient (CLI) | payer OTHER ==
[~2018-03-31] VITALS: Ht 167.6 cm; Wt 121.6 kg
[~2018-03-31 13:18] MED LIST changes: -ATEN50TA; +ATEN50TA PO; -CYCL10TA9; +CYCL10TA9 PO; -FOLI1TAB24; +FOLI1TAB24 PO; -LOSA100T8; +LOSA100T8 PO; -MONT10TA21; +MONT10TA21 PO; -SERT100T; +SERT100T PO
[2018-03-31 13:26] VITALS: BP 107/70
[2018-03-31] MEDS ORDERED: RT-ALBUINH IH (14:54)
[2018-03-31] MEDS ORDERED: FLT11013 IH (14:54)
[2018-03-31] MEDS ORDERED: DIPH-616 PO (14:54)
[2018-03-31] MEDS ORDERED: ALPR0.254 PO (14:54)
[2018-03-31] MEDS ORDERED: BUSP10TA95 PO (14:54)
[2018-03-31] MEDS ORDERED: LOVA40TA2 PO (14:54)
[2018-03-31] MEDS ORDERED: NABU750T PO (14:54)
== END 2018-03-31 13:50 | disposition home or self-care (01) ==
LOC: PREOP 13:18
PROVIDERS: ATTEND Orthopaedic Surgery
DX: Z01.818 Encounter for other preprocedural examination (principal)
CPT/HCPCS: 87081

== ENCOUNTER 2018-04-06 06:49 | Day surgery (SDC) | payer OTHER ==
--- NOTE | 2018-03-28 11:24 | HISTORY AND PHYSICAL ---
DATE OF SERVICE: ADMISSION HISTORY AND PHYSICAL DATE OF ADMISSION: 04/06/2018. HISTORY OF PRESENT ILLNESS: The patient is a 52-year-old gentleman, who has had a recurrent tearing of his medial meniscus. He has undergone treatment with injections without relief. He reports continued medial knee pain, swelling, catching and locking. Due to persistent symptoms and failure to improve with the conservative measures, the patient has elected to proceed with surgical intervention. REVIEW OF SYSTEMS: No chest pain, no shortness of breath and no dysuria. PAST MEDICAL HISTORY: Hypertension, anxiety and leg tremors. PAST SURGICAL HISTORY: Right knee arthroscopy and left knee arthroscopies. FAMILY HISTORY: Noncontributory. PRIMARY CARE PROVIDER: Dr. Aldana. MEDICATIONS: Atenolol, losartan, alprazolam, Zoloft, Neurontin, hydrocodone, folic acid, montelukast, Symbicort, Xopenex, nabumetone and baclofen. ALLERGIES: No known drug allergies. SOCIAL HISTORY: The patient is a former smoker. Denies alcohol use. PHYSICAL EXAMINATION: GENERAL: The patient is well developed and well nourished, in no acute distress. HEENT: Normocephalic and atraumatic. Pupils are equal, round and reactive to light. Oropharynx is clear. NECK: Supple and no lymphadenopathy. LUNGS: Clear to auscultation bilaterally. HEART: Regular rate and rhythm. ABDOMEN: Soft, nontender and nondistended. EXTREMITIES: The left knee demonstrates moderate effusion. It is tender along his medial joint line, has pain medially with Yumiko. He also has a mildly positive straight leg raise on the left. He ambulates with an antalgic gait using a cane. IMPRESSION: Left knee medial meniscus tear with chondromalacia. PLAN: Left knee arthroscopy, partial medial meniscectomy and chondroplasty. The risks, benefits, options, ramifications and recovery have been discussed at length with the patient. He understands and wishes to proceed. Job ID: [id number] DocumentID: [id number] Dictated Date: 03/28/2018 11:04:59 Armored Car Guard Date: 03/28/2018 11:23:59 Dictated By: RENETTA GÓMEZ MD
[~2018-04-06] VITALS: Ht 167.6 cm; Wt 121.3 kg
[~2018-04-06 06:49] MED LIST changes: +ALPR0.254 PO; +BUSP10TA95 PO; +DIPH-616 PO; +FLT11013 IH; +LOVA40TA2 PO; +NABU750T PO; +RT-ALBUINH IH
[2018-04-06 06:53] VITALS: BP 146/99
[2018-04-06] MEDS ORDERED: LACTATED RINGERS 1,000 ML IV PRN (06:54)
[2018-04-06] MEDS ORDERED: ceFAZolin INJECTION 1,000 MG in NS (IVPB) 50 ML IV ONE (07:00)
[2018-04-06] MEDS ORDERED: FAMOTIDINE 20MG/2ML IV (PEPCID) IV ONE (07:00)
[2018-04-06] MEDS ORDERED: fentaNYL INJECTION 100 MCG/2 ML AMP ONE (07:07)
[2018-04-06] MEDS ORDERED: MIDAZOLAM 2 MG/2 ML (VERSED) VIAL ONE (07:07)
[2018-04-06] MEDS ORDERED: BUPIVACAINE 0.25% 30 ML (SENSORCAINE) VIAL ONE (07:08)
[2018-04-06] MEDS ORDERED: morphine PF (DURAMORPH) 10 MG/10 ML AMP ONE (07:08)
[2018-04-06] MEDS ORDERED: HYDROcodone/APAP 7.5 MG/325 MG (LORTAB, LORCET PLUS) TABLET PO PRN (07:30)
--- NOTE | 2018-04-06 07:33 | Progress Note-Pre Operative ---
Pre-Operative Progress Note H&P Reviewed The H&P was reviewed, patient examined and no changes noted. Date Seen by Provider: Apr 06, 2018 Time Seen by Provider: 07:15 Date H&P Reviewed: Apr 06, 2018 Time H&P Reviewed: 07:15 Pre-Operative Diagnosis: left knee medial meniscus tear and chondromalacia RENETTA GÓMEZ MD Apr 06, 2018 07:33
--- NOTE | 2018-04-06 07:34 | Progress Note-Post Operative ---
Post-Operative Progess Note Surgeon (s)/Embedded Nurse (s) Surgeon RENETTA GÓMEZ MD Embedded Nurse: Conor Corbett Pre-Operative Diagnosis left knee medial meniscus tear and chondromalacia Post-Operative Diagnosis left knee medial meniscus tear and chondromalacia of the medial femoral condyle, medial tibial plateau and patella Procedure & Operative Findings Date of Procedure 04/06/18 Procedure Performed/Findings left knee arthroscopic partial medial meniscectomy and chondroplasty of the medial femoral condyle, medial tibial plateau and patella Anesthesia Type GETA Estimated Blood Loss Estimated blood loss (mL): minimal Specimens/Packing Specimens Removed none Packing: none RENETTA GÓMEZ MD Apr 06, 2018 07:34
--- OUTSIDE RECORDS SUMMARY | 2018-04-06 07:49 | XMS REPORT ---
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 Name Role Phone ROSALINA GRAHAM Unavailable PROBLEMS Type Condition ICD9-CM Code DVS55-SH Code Onset Dates Condition Status SNOMED Code Problem Generalized anxiety disorder F41.1 Active 84328633 Problem PTSD (post-traumatic stress disorder) F43.10 Active 15303375 Problem Falling R29.6 Active 277479877 Problem Hematuria, unspecified type R31.9 Active 39514982 Problem Degenerative arthritis M19.90 Active 911091381 Problem Cervical disc disease with myelopathy M50.00 Active 02895301 Problem Panic disorder F41.0 Active 748510179 Problem Environmental allergies Z91.09 Active 050598141 Problem Moderate persistent asthma without complication J45.40 Active 139592215 Problem Allergic state, initial encounter T78.40XA Active 396035268 Problem Other chronic pain G89.29 Active 46350741 Problem Muscle spasms of both lower extremities M62.838 Active 697461563 Problem Essential hypertension I10 Active 81039658 Problem Reactive depression F32.9 Active 28467058 Problem Dorsalgia, unspecified M54.9 Active 807190392 Problem Severe episode of recurrent major depressive disorder, without psychotic features F33.2 Active 12856178 ALLERGIES No Information ENCOUNTERS Encounter Location Date Diagnosis [facility] [address] [facility] [id number] [address] Apr, [facility] [id number] [place] [address] 90395- 3452 Apr, [facility] [address], [place] [address] 9680 Mar, [facility] [id number] [address] 8557 Mar, [facility] [id number] [place] [address] 20416- 7879 Mar, Panic disorder F41.0 ; Severe episode of recurrent major depressive disorder, without psychotic features F33.2 ; PTSD (post-traumatic stress disorder) F43.10 and BMI 40.0-44.9, adult Z68.41 [facility] [id number] [place] [address] 10317- 7098 Mar, [facility] [id number] [place] [address] 36206- 7985 Mar, [facility] [address] 9[address]29- 5067 Mar, [facility] [id number] [place] [address] 68094- 5525 Mar, Essential hypertension I10 [facility] [address] 84402- 8989 Feb, [facility] [id number] [place] [address] 25427- 1566 Feb, Hematuria, unspecified type R31.9 ; Former cigarette smoker Z87.891 and BMI 40.0-44.9, adult Z68.41 [facility] [id number] [place] [address] 28296- 6919 27 Feb, 2018 [facility] [id number] [place] [address] 79086- 6781 Feb, [facility] [id number] [place] [address] 54257- 2658 Feb, [facility] [address] 68860- 3531 Feb, Degenerative arthritis M19.90 [facility] [id number] [place] [address] 40107- 3911 15 Feb, 2018 [facility] [address] 76388- 9490 Feb, [facility] [id number] [place] [address] 15207- 4292 Feb, [facility] [id number] [place] [address] 44378- 4981 Feb, [facility] [id number] [place] [address] 33947- 0041 Feb, Severe episode of recurrent major depressive disorder, without psychotic features F33.2 [facility] [id number] [place] [address] 44453- 5787 Feb, Arthritis M19.90 and BMI 40.0-44.9, adult Z68.41 [facility] [id number] [place] [address] 60886- 4745 Feb, [facility] [address] 87801- 8369 Feb, [facility] [id number] [place] [address] 62627- 3346 Feb, [facility] [id number] [place] [address] 67400- 4131 Feb, [facility] [id number] [place] [address] 62883- 9936 Feb, Essential hypertension I10 [facility] [id number] [place] [address] 93519- 9776 Jan, Severe episode of recurrent major depressive disorder, without psychotic features F33.2 [facility] [id number] [place] [address] 12657- 7473 Jan, [facility] [id number] [place] [address] 40163- 0397 Jan, Environmental allergies Z91.09 [facility] [id number] [place] [address] 46757- 3429 Jan, [facility] [address] [place] [address]- 5106 Jan, [facility] [id number] [address] 5074 Jan, [facility] [address], [place] [address]- 5032 Jan, [facility] [id number] [place] [address] 84085- 0655 Jan, [facility] [id number] [place] [address] 19920- 8655 Jan, Cervical disc disease with myelopathy M50.00 [facility] [id number] [place] [address] 25302- 8508 Jan, Severe episode of recurrent major depressive disorder, without psychotic features F33.2 ; Panic disorder F41.0 ; PTSD (post-traumatic stress disorder) F43.10 and BMI 40.0-44.9, adult Z68.41 [facility] [address], [place] [address]- 7375 Jan, Severe episode of recurrent major depressive disorder, without psychotic features F33.2 and Generalized anxiety disorder F41.1 [facility] [address], [place] [address]- 9340 Jan, [facility] [address], [place] [address]- 9503 Jan, Cervical disc disease with myelopathy M50.00 [facility] [address], [place] [address]- 1881 Jan, [facility] [id number] [address]- 3997 Jan, [facility] [id number] [place] [address] 14501- 9986 Jan, [facility] [address], [place] [address]- 1571 Jan, [facility] [id number] [address]- 8666 Jan, [facility] [id number] [place] [address] 36650- 8268 Jan, Environmental allergies Z91.09 and BMI 40.0-44.9, adult Z68.41 [facility] [id number] [place] [address] 74897- 0928 Jan, [facility] [id number] [place] [address] 64574- 5769 Jan, [facility] [id number] [place] [address] 20587- 0638 Jan, Severe episode of recurrent major depressive disorder, without psychotic features F33.2 [facility] [id number] [place] [address] 69954- 5561 Dec, Severe episode of recurrent major depressive disorder, without psychotic features F33.2 [facility] [id number] [place] [address] 76052- 4067 Dec, Encounter for immunization Z23 [facility] [id number] [place] [address] 05294- 9214 Dec, [facility] [id number] [place] [address] 96167- 1290 24 Dec, 2017 Severe episode of recurrent major depressive disorder, without psychotic features F33.2 ; PTSD (post-traumatic stress disorder) F43.10 ; Panic disorder F41.0 and BMI 40.0-44.9, adult Z68.41 [facility] [id number] [place] [address] 01675- 3245 Dec, [facility] [id number] [place] [address] 35174- 5172 Dec, [facility] [id number] [place] [address] 15808- 4640 Dec, Essential hypertension I10 [facility] [id number] [address]- 2452 Dec, [facility] [id number] [place] [address] 68467- 4312 Dec, [facility] [id number] [place] [address] 11073- 5045 Dec, BMI 40.0-44.9, adult Z68.41 ; Severe episode of recurrent major depressive disorder, without psychotic features F33.2 ; PTSD (post- traumatic stress disorder) F43.10 and Panic disorder F41.0 [place] [facility] [id number] [place] [address] 95701- 9423 Dec, [facility] [id number] [place] [address] 68377- 2086 Dec, [facility] [id number] [place] [address] 83081- 8561 Dec, Essential hypertension I10 [facility] [id number] [place] [address] 85680- 7786 Dec, Severe episode of recurrent major depressive disorder, without psychotic features F33.2 [place] [facility] [id number] [place] [address] 13147- 5195 Dec, Severe episode of recurrent major depressive disorder, without psychotic features F33.2 and Generalized anxiety disorder F41.1 [place] [id number] [place] [address] 56793- 3195 Nov, Cervical disc disease with myelopathy M50.00 [facility] [id number] [place] [address] 66475- 6576 Nov, Cervical disc disease with myelopathy M50.00 ; Moderate persistent asthma without complication J45.40 and BMI 40.0-44.9, adult Z68.41 [place] [id number] [place] [address] 23926- 2545 Nov, [facility] [id number] [place] [address] 47122- 5641 Nov, [facility] [address], [place] [address]- 6467 Nov, [facility] [id number] [place] [address] 97080- 5140 Nov, [facility] [address], [place] [address]- 8577 Nov, [facility] [id number] [place] [address] 56680- 7220 Nov, [facility] [id number] [place] [address] 19802- 7043 Nov, [facility] [id number] [place] [address] 62286- 6099 Nov, [facility] [id number] [place] [address] 41850- 1690 Nov, [facility] [id number] [place] [address] 53907- 1405 Nov, Severe episode of recurrent major depressive disorder, without psychotic features F33.2 ; PTSD (post-traumatic stress disorder) F43.10 ; Panic disorder F41.0 and BMI 40.0-44.9, adult Z68.41 [facility] [address], [place] [address]- 7927 Nov, [facility] [address], [place] [address]- 0162 Nov, Essential hypertension I10 [facility] [address], [place] [address]- 5849 Nov, Severe episode of recurrent major depressive disorder, without psychotic features F33.2 [facility] [address], [place] [address]- 8614 Nov, Acute pain of left knee M25.562 [facility] [id number] [place] [address] 80808- 5224 Nov, Severe episode of recurrent major depressive disorder, without psychotic features F33.2 ; PTSD (post-traumatic stress disorder) F43.10 ; Panic disorder F41.0 and BMI 40.0-44.9, adult Z68.41 [facility] [id number] [place] [address] 56816- 7466 Oct, [facility] [id number] [place] [address] 28938- 3670 Oct, [facility] [id number] [place] [address] 40867- 6260 Oct, [facility] [id number] [place] [address] 02847- 5328 Oct, [facility] [id number] [place] [address] 82697- 7844 Oct, Dorsalgia, unspecified M54.9 [facility] [id number] [place] [address] 99944- 8323 Oct, Severe episode of recurrent major depressive disorder, without psychotic features F33.2 and Generalized anxiety disorder F41.1 [facility] [id number] [place] [address] 32445- 5390 Oct, [facility] [id number] [place] [address] 04729- 2840 Oct, [facility] [id number] [place] [address] 12946- 7680 Oct, [facility] [id number] [place] [address] 50889- 5225 Oct, [facility] [id number] [place] [address] 40981- 5928 Oct, [facility] [id number] [place] [address] 05811- 9389 Oct, [facility] [id number] [place] [address] 94768- 7557 Oct, [facility] [address], [place] [address]- 1749 Oct, [facility] [id number] [place] [address] 63550- 3435 Sep, Dorsalgia, unspecified M54.9 [facility] [id number] [place] [address] 20816- 2708 Sep, [facility] [id number] [place] [address] 69609- 4944 Sep, [facility] [id number] [place] [address] 71862- 4858 Sep, Falling R29.6 ; Essential hypertension I10 ; Chronic obstructive pulmonary disease, unspecified COPD type J44.9 and BMI 40.0-44.9, adult Z68.41 [facility] [id number] [place] [address] 92538- 4794 Sep, [facility] [id number] [place] [address] 55513- 1524 Sep, [facility] [id number] [place] [address] 94067- 3307 Sep, [facility] [id number] [place] [address] 12029- 4376 Sep, Mild intermittent asthma without complication J45.20 [facility] [id number] [place] [address] 81165- 9440 Sep, [facility] [id number] [place] [address] 20495- 2359 Sep, [facility] [id number] [place] [address] 09824- 4597 Sep, [facility] [id number] [place] [address] 43385- 3056 Sep, [facility] [id number] [place] [address] 42748- 3248 18 Sep, 2017 [facility] [address], [place] [address]- 9911 15 Sep, 2017 [facility] [id number] [place] [address] 18469- 8319 15 Sep, 2017 Essential hypertension I10 [facility] [address], [place] [address]- 8935 15 Sep, 2017 [facility] [id number] [place] [address] 98276- 1526 15 Sep, 2017 [facility] [address] [place] [address] 73030- 9977 15 Sep, 2017 [facility] [id number] [place] [address] 05570- 2576 14 Sep, 2017 [facility] [id number] [place] [address] 38844- 0467 14 Sep, 2017 [facility] [address], [place] [address]- 7331 14 Sep, 2017 [facility] [id number] [place] [address] 52097- 8372 13 Sep, 2017 [facility] [address], [place] [address]- 3531 Sep, [facility] [address], [place] [address]- 8457 Sep, [facility] [address], [place] [address]- 1526 Sep, [facility] [id number] [place] [address] 47214- 8171 05 Sep, 2017 Mild intermittent asthma without complication J45.20 [facility] [address], [place] [address]- 9569 August, Essential hypertension I10 [facility] [address], [place] [address]- 2594 August, BMI 40.0-44.9, adult Z68.41 ; Dorsalgia, unspecified M54.9 ; Allergic state, initial encounter T78.40XA ; Mild intermittent asthma without complication J45.20 and 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 [facility] [id number] [place] [address] 25973- 8279 August, [facility] [id number] [place] [address] 81183- 4042 August, [facility] [id number] [place] [address] 41543- 1365 August, [facility] [id number] [place] [address] 85041- 5561 August, Reactive depression F32.9 [facility] [id number] [place] [address] 64820- 5034 August, [facility] [id number] [place] [address] 16662- 0778 August, [facility] [id number] [place] [address] 50098- 5987 August, [facility] [id number] [place] [address] 39175- 3571 August, [facility] [id number] [place] [address] 49651- 7440 August, [facility] [id number] [place] [address] 26883- 0782 August, [facility] [id number] [place] [address] 30587- 6569 August, [facility] [id number] [place] [address] 74263- 5456 August, Muscle spasms of both lower extremities M62.838 ; Essential hypertension I10 and Reactive depression F32.9 [facility] [id number] [place] [address] 66860- 0930 August, [facility] [id number] 7123 Jul, [facility] [address] [address]- 1096 Jul, [facility] [address] [place] [address]- 6148 Jul, [facility] [address] [place] [address]- 3261 Jul, [facility] [address] 1681 Jul, [facility] [id number] [place] [address] 009527- 1483 Jul, [facility] [address], [place] [address]- 7495 Jul, [facility] [address] [place] [address]- 3683 Jul, [facility] [id number] [address]- 4120 Jul, Essential hypertension I10 ; Other chronic pain G89.29 ; Dorsalgia, unspecified M54.9 ; Reactive depression F32.9 ; Mild intermittent asthma without complication J45.20 ; Allergic state, initial encounter T78.40XA and Muscle spasms of both lower extremities M62.838 IMMUNIZATIONS No Known Immunizations SOCIAL HISTORY Never Assessed REASON FOR VISIT Cancel Appointment Request PLAN OF CARE VITAL SIGNS MEDICATIONS Unknown Medications RESULTS No Results PROCEDURES No Known procedures INSTRUCTIONS MEDICATIONS ADMINISTERED No Known Medications MEDICAL (GENERAL) HISTORY Type Description Date Medical History essential hypertension Medical History chronic pain Medical History degenerative disc disease cervical, thoracic Medical History spinal stenosis Medical History numbness left side Medical History mild intermittent asthma Medical History COPD Medical History tinnitus Medical History sciatica Surgical History Right knee surgery 03/2017 Surgical History Right knee surgery 08/20/2017 Surgical History left shoulder repair Surgical History right foot surgery Surgical History Left knee 11/21/17 Hospitalization History childhood for pneumonia
--- OUTSIDE RECORDS SUMMARY | 2018-04-06 07:50 | XMS REPORT ---
Author Author ROSALINA GRAHAM [facility] Address [address] [place] [address] Care Team Providers Care Forensic Audit Expert Name Role Phone ROSALINA GRAHAM Unavailable PROBLEMS Type Condition ICD9-CM Code RPI12-KH Code Onset Dates Condition Status SNOMED Code Problem Generalized anxiety disorder F41.1 Active 28977929 Problem PTSD (post-traumatic stress disorder) F43.10 Active 25655045 Problem Falling R29.6 Active 829622725 Problem Hematuria, unspecified type R31.9 Active 44531721 Problem Degenerative arthritis M19.90 Active 824372822 Problem Cervical disc disease with myelopathy M50.00 Active 90750444 Problem Panic disorder F41.0 Active 138985192 Problem Environmental allergies Z91.09 Active 009600460 Problem Moderate persistent asthma without complication J45.40 Active 523879589 Problem Allergic state, initial encounter T78.40XA Active 081310017 Problem Other chronic pain G89.29 Active 28196849 Problem Muscle spasms of both lower extremities M62.838 Active 374150373 Problem Essential hypertension I10 Active 59221342 Problem Reactive depression F32.9 Active 26738314 Problem Dorsalgia, unspecified M54.9 Active 903425419 Problem Severe episode of recurrent major depressive disorder, without psychotic features F33.2 Active 20254068 ALLERGIES No Information ENCOUNTERS Encounter Location Date Diagnosis [facility] [address] [facility] [id number] [address] Apr, [facility] [id number] [place] [address] 25050- 9964 Mar, [facility] [address] [address] 47[address] Mar, [facility] [id number] [place] [address] 74846- 2647 Mar, [facility] [id number] [place] [address] 63686- 8837 Mar, Essential hypertension I10 [facility] [id number] [place] [address] 66147- 6793 30 Feb, 2018 [facility] [id number] [place] [address] 49608- 9232 29 Feb, 2018 Hematuria, unspecified type R31.9 ; Former cigarette smoker Z87.891 and BMI 40.0-44.9, adult Z68.41 [facility] [id number] [place] [address] 29487- 7171 27 Feb, 2018 [facility] [address] 01636- 6006 19 Feb, 2018 [facility] [address] 38840- 1101 16 Feb, 2018 [facility] [id number] [place] [address] 64954- 0731 16 Feb, 2018 Degenerative arthritis M19.90 [facility] [address] 06644- 9941 15 Feb, 2018 [facility] [id number] [place] [address] 01393- 2123 15 Feb, 2018 [facility] [id number] [place] [address] 18004- 1990 14 Feb, 2018 [facility] [id number] [place] [address] 84475- 4700 14 Feb, 2018 [facility] [id number] [place] [address] 60215- 4495 14 Feb, 2018 Severe episode of recurrent major depressive disorder, without psychotic features F33.2 [facility] [id number] [place] [address] 57605- 0184 09 Feb, 2018 Arthritis M19.90 and BMI 40.0-44.9, adult Z68.41 [facility] [address] [address] Feb, [facility] [id number] [place] [address] 41913- 8774 Feb, [facility] [id number] [place] [address] 791645- 0914 Feb, [facility] [id number] [place] [address] 48798- 2814 Feb, [facility] [id number] [place] [address] 55420- 6653 Feb, Essential hypertension I10 [facility] [id number] [place] [address] 70168- 7018 Jan, Severe episode of recurrent major depressive disorder, without psychotic features F33.2 [facility] [id number] [place] [address] 22654- 8730 Jan, [facility] [id number] [place] [address] 14498- 3424 Jan, Environmental allergies Z91.09 [facility] [id number] [place] [address] 73854- 2722 Jan, [facility] [id number] [place] [address] 82998- 7945 Jan, [facility] [id number] [place] [address] 50012- 1246 Jan, [facility] [id number] [place] [address] 17387- 8251 Jan, [facility] [id number] [place] [address] 88026- 6909 Jan, [facility] [id number] [place] [address] 66262- 4972 Jan, Cervical disc disease with myelopathy M50.00 [facility] [id number] [place] [address] 51765- 9902 Jan, Severe episode of recurrent major depressive disorder, without psychotic features F33.2 ; Panic disorder F41.0 ; PTSD (post-traumatic stress disorder) F43.10 and BMI 40.0-44.9, adult Z68.41 [facility] [id number] [place] [address] 34742- 6936 Jan, Severe episode of recurrent major depressive disorder, without psychotic features F33.2 and Generalized anxiety disorder F41.1 [facility] [id number] [place] [address] 70302- 4142 Jan, [facility] [id number] [place] [address] 77364- 7413 Jan, Cervical disc disease with myelopathy M50.00 [facility] [id number] [place] [address] 77829- 4407 Jan, [facility] [id number] [place] [address] 70467- 0039 Jan, [facility] [id number] [place] [address] 25122- 7420 Jan, [facility] [id number] [place] [address] 05950- 1865 Jan, [facility] [id number] [place] [address] 09830- 4412 Jan, [facility] [id number] [place] [address] 92527- 5707 Jan, Environmental allergies Z91.09 and BMI 40.0-44.9, adult Z68.41 [facility] [id number] [place] [address] 55839- 4472 Jan, [facility] [id number] [place] [address] 98855- 5517 Jan, [facility] [id number] [place] [address] 08421- 0128 Jan, Severe episode of recurrent major depressive disorder, without psychotic features F33.2 [facility] [address] [address] 2093 Dec, Severe episode of recurrent major depressive disorder, without psychotic features F33.2 [facility] [address] [address]- 4186 27 Dec, 2017 Encounter for immunization Z23 [facility] [id number] [place] [address] 12519- 9279 Dec, [facility] [id number] [place] [address] 19404- 2888 24 Dec, 2017 Severe episode of recurrent major depressive disorder, without psychotic features F33.2 ; PTSD (post-traumatic stress disorder) F43.10 ; Panic disorder F41.0 and BMI 40.0-44.9, adult Z68.41 [facility] [id number] [place] [address] 78778- 0940 Dec, [facility] [id number] [place] [address] 78809- 5296 Dec, [facility] [id number] [place] [address] 75802- 4809 Dec, Essential hypertension I10 [facility] [id number] [place] [address] 16951- 3378 14 Dec, 2017 [facility] [id number] [place] [address] 75491- 7585 06 Dec, 2017 [facility] [id number] [place] [address] 17861- 0528 05 Dec, 2017 BMI 40.0-44.9, adult Z68.41 ; Severe episode of recurrent major depressive disorder, without psychotic features F33.2 ; PTSD (post- traumatic stress disorder) F43.10 and Panic disorder F41.0 [facility] [address] [address]- 4879 Dec, [facility] [address] [id number] [address]- 6008 Dec, [facility] [id number] [place] [address] 26073- 8255 Dec, Essential hypertension I10 [facility] [id number] [place] [address] 12466- 1208 Dec, Severe episode of recurrent major depressive disorder, without psychotic features F33.2 [facility] [id number] [place] [address] 66639- 5325 Dec, Severe episode of recurrent major depressive disorder, without psychotic features F33.2 and Generalized anxiety disorder F41.1 [facility] [id number] [place] [address] 79947- 4051 Nov, Cervical disc disease with myelopathy M50.00 [facility] [id number] [place] [address] 98264- 7013 Nov, Cervical disc disease with myelopathy M50.00 ; Moderate persistent asthma without complication J45.40 and BMI 40.0-44.9, adult Z68.41 [facility] [id number] [place] [address] 96330- 2080 Nov, [facility] [id number] [place] [address] 97737- 2927 Nov, [facility] [address] [address]- 2343 Nov, [facility] [id number] [address]- 2035 Nov, [facility] [id number] [place] [address] 73089- 8150 Nov, [facility] [id number] [place] [address] 79216- 1769 Nov, [facility] [address] [address]- 0706 Nov, [facility] [address] [address]- 7374 Nov, [facility] [address] [address]- 2676 Nov, [facility] [address] [address]- 2691 Nov, Severe episode of recurrent major depressive disorder, without psychotic features F33.2 ; PTSD (post-traumatic stress disorder) F43.10 ; Panic disorder F41.0 and BMI 40.0-44.9, adult Z68.41 [facility] [address] [address]- 5413 Nov, [facility] [id number] [place] [address] 34833- 1153 Nov, Essential hypertension I10 [facility] [id number] [place] [address] 13803- 9739 Nov, Severe episode of recurrent major depressive disorder, without psychotic features F33.2 [facility] [address] [address]- 8874 Nov, Acute pain of left knee M25.562 [facility] [id number] [place] [address] 46479- 7697 Nov, Severe episode of recurrent major depressive disorder, without psychotic features F33.2 ; PTSD (post-traumatic stress disorder) F43.10 ; Panic disorder F41.0 and BMI 40.0-44.9, adult Z68.41 [facility] [address] [address]- 5955 Oct, [facility] [id number] [address]- 4603 Oct, [facility] [address] [address]- 4382 Oct, [facility] [id number] [place] [address] 30494- 6532 Oct, [facility] [id number] [place] [address] 34507- 3962 Oct, Dorsalgia, unspecified M54.9 [facility] [id number] [place] [address] 01285- 9069 Oct, Severe episode of recurrent major depressive disorder, without psychotic features F33.2 and Generalized anxiety disorder F41.1 [facility] [id number] [place] [address] 03695- 2165 Oct, [facility] [id number] [place] [address] 99677- 0279 Oct, [facility] [id number] [place] [address] 89743- 6451 Oct, [facility] [id number] [place] [address] 72021- 7674 Oct, [facility] [id number] [place] [address] 19778- 5028 Oct, [facility] [id number] [place] [address] 60779- 2017 Oct, [facility] [id number] [place] [address] 18065- 1008 Oct, [facility] [id number] [place] [address] 84789- 5290 Oct, [facility] [id number] [place] [address] 81355- 6035 Sep, Dorsalgia, unspecified M54.9 [facility] [id number] [place] [address] 87146- 3772 Sep, [facility] [id number] [place] [address] 66958- 2363 Sep, [facility] [id number] [place] [address] 03633- 4208 Sep, Falling R29.6 ; Essential hypertension I10 ; Chronic obstructive pulmonary disease, unspecified COPD type J44.9 and BMI 40.0-44.9, adult Z68.41 [facility] [id number] [place] [address] 47453- 6299 Sep, [facility] [id number] [place] [address] 25697- 5862 Sep, [facility] [address] 12878- 4410 Sep, [facility] [id number] [place] [address] 53277- 7670 Sep, Mild intermittent asthma without complication J45.20 [facility] [id number] [place] [address] 02095- 2395 Sep, [facility] [id number] [place] [address] 75462- 9490 Sep, [facility] [id number] [place] [address] 57838- 2566 Sep, [facility] [id number] [place] [address] 98669- 1955 Sep, [facility] [id number] [place] [address] 38152- 0049 Sep, [facility] [id number] [place] [address] 61402- 7398 Sep, [facility] [id number] [place] [address] 34618- 3791 Sep, Essential hypertension I10 [facility] [id number] [place] [address] 70591- 5555 Sep, [facility] [id number] [place] [address] 40644- 1236 Sep, [facility] [id number] [place] [address] 61259- 7557 Sep, [facility] [address] [address]- 0160 14 Sep, 2017 [facility] [address] [address]- 1867 Sep, [facility] [address] [address]- 8694 Sep, [facility] [id number] [place] [address] 66566- 8349 Sep, [facility] [id number] [place] [address] 93202- 2092 Sep, [facility] [id number] [place] [address] 03841- 8160 Sep, [facility] [id number] [place] [address] 10866- 8955 Sep, [facility] [id number] [place] [address] 47256- 1648 Sep, Mild intermittent asthma without complication J45.20 [facility] [id number] [place] [address] 21787- 3465 August, Essential hypertension I10 [facility] [id number] [place] [address] 41575- 8659 August, BMI 40.0-44.9, adult Z68.41 ; Dorsalgia, unspecified M54.9 ; Allergic state, initial encounter T78.40XA ; Mild intermittent asthma without complication J45.20 and 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 [facility] [address] [address]- 1214 August, [facility] [id number] [place] [address] 90123- 8364 August, [facility] [address], [place] [address]- 6872 August, [facility] [id number] [place] [address] 22906- 0150 August, Reactive depression F32.9 [facility] [address] [address]- 8606 August, [facility] [id number] [place] [address] 16597- 6496 August, [facility] [address], [place] [address]- 4436 August, [facility] [id number] [place] [address] 68097- 6496 August, [facility] [id number] [place] [address] 54938- 3655 August, [facility] [id number] [place] [address] 13588- 0633 August, [facility] [id number] [place] [address] 29233- 4058 August, [facility] [address] [address]- 2075 August, Muscle spasms of both lower extremities M62.838 ; Essential hypertension I10 and Reactive depression F32.9 [facility] [address] [address]- 2474 August, [facility] [address], [place] [address]- 8573 Jul, [facility] [address] [address]- 2417 Jul, [facility] [address] [address]- 5618 Jul, [facility] [id number] [address]- 0670 Jul, [facility] [address] [address]- 3892 Jul, [facility] [id number] [address]- 2178 Jul, [facility] [address] [facility] [id number] [address]- 8169 Jul, [facility] [address] [facility] [id number] [address]- 2058 Jul, [facility] [address] [facility] [id number] [address]- 6242 Jul, Essential hypertension I10 ; Other chronic pain G89.29 ; Dorsalgia, unspecified M54.9 ; Reactive depression F32.9 ; Mild intermittent asthma without complication J45.20 ; Allergic state, initial encounter T78.40XA and Muscle spasms of both lower extremities M62.838 IMMUNIZATIONS No Known Immunizations SOCIAL HISTORY Never Assessed REASON FOR VISIT Refill PLAN OF CARE VITAL SIGNS MEDICATIONS Medication Instructions Dosage Frequency Start Date End Date Duration Status Atenolol 50 mg Orally Once a day 1 tablet 24h 30 days Active Lovastatin 40 mg Orally Once a day 1 tablet with the evening meal 24h Jul, 30 days Active Losartan Potassium 100 mg Orally Once a day 1 tablet 24h 30 days Active RESULTS No Results [...]
--- OUTSIDE RECORDS SUMMARY | 2018-04-06 07:50 | XMS REPORT ---
Author Author LUCI RANGEL Organization [facility] Address [address] [place] [address] Care Team Providers Care Java Security Engineer Name Role Phone RAFAELALINO RANGEL Unavailable PROBLEMS Type Condition ICD9-CM Code AIS47-ZO Code Onset Dates Condition Status SNOMED Code Problem Generalized anxiety disorder F41.1 Active 23340882 Problem PTSD (post-traumatic stress disorder) F43.10 Active 62298799 Problem Falling R29.6 Active 867665864 Problem Hematuria, unspecified type R31.9 Active 11978537 Problem Degenerative arthritis M19.90 Active 568964997 Problem Cervical disc disease with myelopathy M50.00 Active 18482125 Problem Panic disorder F41.0 Active 020566600 Problem Environmental allergies Z91.09 Active 651488810 Problem Moderate persistent asthma without complication J45.40 Active 165116895 Problem Allergic state, initial encounter T78.40XA Active 704937079 Problem Other chronic pain G89.29 Active 37246357 Problem Muscle spasms of both lower extremities M62.838 Active 624883627 Problem Essential hypertension I10 Active 06609280 Problem Reactive depression F32.9 Active 84488668 Problem Dorsalgia, unspecified M54.9 Active 058606145 Problem Severe episode of recurrent major depressive disorder, without psychotic features F33.2 Active 11459737 ALLERGIES No Information ENCOUNTERS Encounter Location Date Diagnosis [facility] [address] [facility] [id number] [address] Apr, [facility] [id number] [place] [address] 34861- 4788 Apr, [facility] [address], [place] [address] Mar, [facility] [id number] [address] Mar, [facility] [id number] [place] [address] 34984- 7647 Mar, Panic disorder F41.0 ; Severe episode of recurrent major depressive disorder, without psychotic features F33.2 ; PTSD (post-traumatic stress disorder) F43.10 and BMI 40.0-44.9, adult Z68.41 [facility] [address] [address]- [address] Mar, [facility] [address] 0[address]- 0061 Mar, [facility] [address] 35344- 5005 Mar, [facility] [address] 42050- 4112 Mar, Essential hypertension I10 [place] [address] 9[address]- 4[address] Feb, [facility] [address] 21576- 3537 Feb, Hematuria, unspecified type R31.9 ; Former cigarette smoker Z87.891 and BMI 40.0-44.9, adult Z68.41 [place] [id number] [place] [address] 51637- 2442 Feb, [facility] [address] 01686- 8856 Feb, [facility] [id number] [place] [address] 64422- 0615 Feb, [place] [address] 32961- 6525 Feb, Degenerative arthritis M19.90 [facility] [id number] [place] [address] 25703- 1602 15 Feb, 2018 [facility] [address] 55597- 0700 Feb, [facility] [address] [address] 3051 Feb, [facility] [id number] [place] [address] 71150- 0646 Feb, [facility] [id number] [place] [address] 13085- 4159 Feb, Severe episode of recurrent major depressive disorder, without psychotic features F33.2 [facility] [id number] [place] [address] 99871- 3133 Feb, Arthritis M19.90 and BMI 40.0-44.9, adult Z68.41 [facility] [id number] [place] [address] 89590- 4111 Feb, [facility] [id number] [place] [address] 66099- 4557 Feb, [facility] [id number] [place] [address] 90967- 4571 Feb, [facility] [id number] [place] [address] 31908- 9269 Feb, [facility] [id number] [place] [address] 29357- 1808 Feb, Essential hypertension I10 [facility] [id number] [place] [address] 06071- 4378 Jan, Severe episode of recurrent major depressive disorder, without psychotic features F33.2 [facility] [address], [place] [address] 7569 Jan, [facility] [id number] [place] [address] 85172- 4366 Jan, Environmental allergies Z91.09 [facility] [id number] [address] Jan, [facility] [address] [place] [address] 9578 Jan, [facility] [address] [address] 4603 Jan, [facility] [address] [address] 8489 Jan, [facility] [id number] [place] [address] 61030- 2950 Jan, [facility] [id number] [place] [address] 22807- 0948 Jan, Cervical disc disease with myelopathy M50.00 [facility] [id number] [place] [address] 88633- 6006 Jan, Severe episode of recurrent major depressive disorder, without psychotic features F33.2 ; Panic disorder F41.0 ; PTSD (post-traumatic stress disorder) F43.10 and BMI 40.0-44.9, adult Z68.41 [facility] [address] [address] 8841 Jan, Severe episode of recurrent major depressive disorder, without psychotic features F33.2 and Generalized anxiety disorder F41.1 [facility] [address] [address]- 4762 Jan, [facility] [address] [address]- 4414 Jan, Cervical disc disease with myelopathy M50.00 [facility] [address] [address] 6690 Jan, [facility] [address] [address] 3823 Jan, [facility] [id number] [address] 7423 Jan, [facility] [address] [address]- 5382 Jan, [facility] [id number] [address]- 2969 Jan, [facility] [id number] [place] [address] 82602- 9586 Jan, Environmental allergies Z91.09 and BMI 40.0-44.9, adult Z68.41 [facility] [id number] [place] [address] 32698- 3543 Jan, [facility] [id number] [place] [address] 22218- 2622 Jan, [facility] [id number] [place] [address] 88139- 1526 Jan, Severe episode of recurrent major depressive disorder, without psychotic features F33.2 [facility] [id number] [place] [address] 36064- 9018 Dec, Severe episode of recurrent major depressive disorder, without psychotic features F33.2 [facility] [id number] [place] [address] 88763- 1650 27 Dec, 2017 Encounter for immunization Z23 [facility] [id number] [place] [address] 52154- 4692 Dec, [facility] [id number] [place] [address] 44214- 4376 24 Dec, 2017 Severe episode of recurrent major depressive disorder, without psychotic features F33.2 ; PTSD (post-traumatic stress disorder) F43.10 ; Panic disorder F41.0 and BMI 40.0-44.9, adult Z68.41 [facility] [id number] [place] [address] 77982- 3914 Dec, [facility] [id number] [place] [address] 85054- 7889 Dec, [facility] [id number] [place] [address] 40726- 8016 Dec, Essential hypertension I10 [facility] [address] [address]- 4769 Dec, [facility] [id number] [place] [address] 38261- 5518 Dec, [facility] [id number] [place] [address] 88640- 4785 Dec, BMI 40.0-44.9, adult Z68.41 ; Severe episode of recurrent major depressive disorder, without psychotic features F33.2 ; PTSD (post- traumatic stress disorder) F43.10 and Panic disorder F41.0 [facility] [id number] [place] [address] 61355- 6931 Dec, [facility] [id number] [place] [address] 08003- 2905 Dec, [facility] [id number] [place] [address] 75557- 5603 Dec, Essential hypertension I10 [facility] [id number] [place] [address] 28230- 8845 Dec, Severe episode of recurrent major depressive disorder, without psychotic features F33.2 [place] [id number] [place] [address] 86246- 5402 Dec, Severe episode of recurrent major depressive disorder, without psychotic features F33.2 and Generalized anxiety disorder F41.1 [place] [id number] [place] [address] 01368- 5769 Nov, Cervical disc disease with myelopathy M50.00 [facility] [id number] [place] [address] 04069- 3485 Nov, Cervical disc disease with myelopathy M50.00 ; Moderate persistent asthma without complication J45.40 and BMI 40.0-44.9, adult Z68.41 [place] [id number] [place] [address] 31328- 8442 Nov, [facility] [id number] [place] [address] 77430- 0523 Nov, [facility] [address] [address]- 8619 Nov, [facility] [address], [place] [address]- 0711 Nov, [facility] [address], [place] [address]- 1414 Nov, [facility] [id number] [place] [address] 83304- 5617 Nov, [facility] [address] [address]- 1471 Nov, [facility] [id number] [place] [address] 04860- 3644 Nov, [facility] [id number] [place] [address] 60090- 6971 Nov, [facility] [address] [address]- 1165 Nov, Severe episode of recurrent major depressive disorder, without psychotic features F33.2 ; PTSD (post-traumatic stress disorder) F43.10 ; Panic disorder F41.0 and BMI 40.0-44.9, adult Z68.41 [facility] [address], [place] [address]- 7881 Nov, [facility] [address] [address]- 4314 Nov, Essential hypertension I10 [facility] [id number] [address]- 2651 Nov, Severe episode of recurrent major depressive disorder, without psychotic features F33.2 [facility] [id number] [address]- 4153 Nov, Acute pain of left knee M25.562 [facility] [id number] [place] [address] 85971- 7538 Nov, Severe episode of recurrent major depressive disorder, without psychotic features F33.2 ; PTSD (post-traumatic stress disorder) F43.10 ; Panic disorder F41.0 and BMI 40.0-44.9, adult Z68.41 [facility] [id number] [place] [address] 24747- 1475 Oct, [facility] [id number] [place] [address] 05500- 2963 Oct, [facility] [id number] [place] [address] 11810- 6330 Oct, [facility] [id number] [place] [address] 20747- 5206 Oct, [facility] [id number] [place] [address] 66247- 6729 Oct, Dorsalgia, unspecified M54.9 [facility] [id number] [place] [address] 12642- 2381 Oct, Severe episode of recurrent major depressive disorder, without psychotic features F33.2 and Generalized anxiety disorder F41.1 [facility] [id number] [place] [address] 83701- 2511 Oct, [facility] [id number], [place] [address]- 8689 Oct, [facility] [id number], [place] [address]- 8801 Oct, [facility] [id number] [place] [address] 15385- 9418 Oct, [facility] [id number] [place] [address] 43565- 1258 Oct, [facility] [address], [place] [address]- 5590 Oct, [facility] [id number] [place] [address] 56063- 8295 Oct, [facility] [id number] [place] [address] 32040- 1751 Oct, [facility] [id number] [place] [address] 54399- 9378 Sep, Dorsalgia, unspecified M54.9 [facility] [id number] [place] [address] 12657- 6301 Sep, [facility] [id number] [place] [address] 77402- 0352 Sep, [facility] [id number] [place] [address] 46154- 4288 Sep, Falling R29.6 ; Essential hypertension I10 ; Chronic obstructive pulmonary disease, unspecified COPD type J44.9 and BMI 40.0-44.9, adult Z68.41 [facility] [id number] [place] [address] 53288- 6408 Sep, [facility] [id number] [place] [address] 41159- 9245 Sep, [facility] [id number] [place] [address] 05770- 7212 Sep, [facility] [id number] [place] [address] 27575- 4864 Sep, Mild intermittent asthma without complication J45.20 [facility] [id number] [place] [address] 96801- 8987 Sep, [facility] [id number] [place] [address] 25873- 1665 Sep, [facility] [id number] [place] [address] 68952- 7466 Sep, [facility] [id number] [place] [address] 74352- 7802 Sep, [facility] [id number] [place] [address] 88444- 7405 18 Sep, 2017 [facility] [id number] [place] [address] 83487- 4713 15 Sep, 2017 [facility] [id number] [place] [address] 45498- 7320 15 Sep, 2017 Essential hypertension I10 [facility] [id number] [place] [address] 58259- 9467 15 Sep, 2017 [facility] [id number] [place] [address] 63947- 0006 15 Sep, 2017 [facility] [id number] [place] [address] 68029- 2380 15 Sep, 2017 [facility] [id number] [place] [address] 04349- 6764 14 Sep, 2017 [facility] [id number] [place] [address] 12510- 7483 14 Sep, 2017 [facility] [id number] [place] [address] 81237- 5660 14 Sep, 2017 [facility] [id number] [place] [address] 62221- 1170 13 Sep, 2017 [facility] [address] [place] [address] 56934- 2973 13 Sep, 2017 [facility] [address] [place] [address] 59856- 2638 13 Sep, 2017 [facility] [id number] [place] [address] 48587- 7059 Sep, [facility] [id number] [place] [address] 50244- 4572 05 Sep, 2017 Mild intermittent asthma without complication J45.20 [facility] [address], [place] [address]- 8086 August, Essential hypertension I10 [facility] [address] [place] [address] 91640- 3636 August, BMI 40.0-44.9, adult Z68.41 ; Dorsalgia, unspecified M54.9 ; Allergic state, initial encounter T78.40XA ; Mild intermittent asthma without complication J45.20 and 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 [facility] [id number] [place] [address] 45289- 6466 August, [facility] [address] 12384- 8556 August, [facility] [id number] [place] [address] 77148- 9741 August, [facility] [address] 27738- 2188 August, Reactive depression F32.9 [facility] [id number] [place] [address] 15180- 6068 August, [facility] [id number] [place] [address] 13935- 4900 August, [facility] [id number] [place] [address] 45702- 4100 August, [facility] [id number] [place] [address] 73767- 3514 August, [facility] [id number] [place] [address] 16907- 6091 August, [facility] [id number] [place] [address] 06303- 8251 August, [facility] [id number] [place] [address] 92510- 7570 August, [facility] [id number] [place] [address] 41971- 9694 August, Muscle spasms of both lower extremities M62.838 ; Essential hypertension I10 and Reactive depression F32.9 [facility] [id number] [place] [address] 06863- 0644 August, [facility] [address] [address]- 1818 Jul, [facility] [address] [address]- 4422 Jul, [facility] [id number] [address]- 7935 Jul, [facility] [id number] [place] [address] 82449- 6994 Jul, [facility] [id number] [place] [address] 25188- 5186 Jul, [facility] [id number] [place] [address] 87705- 1879 Jul, [facility] [id number] [place] [address] 32471- 7535 Jul, [facility] [id number] [place] [address] 61322- 1771 Jul, [facility] [address] [address]- 7748 Jul, Essential hypertension I10 ; Other chronic pain G89.29 ; Dorsalgia, unspecified M54.9 ; Reactive depression F32.9 ; Mild intermittent asthma without complication J45.20 ; Allergic state, initial encounter T78.40XA and Muscle spasms of both lower extremities M62.838 IMMUNIZATIONS No Known Immunizations SOCIAL HISTORY Never Assessed REASON FOR VISIT Psychiatric f/u- didier jimenez PLAN OF CARE Activity Details Follow Up 2 Months Reason: VITAL SIGNS Height 66 in 2018-03-28 Weight 270 lbs 2018-03-28 Heart Rate 103 bpm 2018-03-28 Respiratory Rate 20 2018-03-28 BMI 43.57 kg/m2 2018-03-28 Blood pressure systolic 122 mmHg 2018-03-28 Blood pressure diastolic 90 mmHg 2018-03-28 MEDICATIONS Medication Instructions Dosage Frequency Start Date End Date Duration Status Atenolol 50 mg Orally Once a day 1 tablet 24h 30 days Active Singulair 10 mg Orally Once a day 1 tablet 24h 90 days Active Cyclobenzaprine HCl 10 mg Orally Three times a day 1 tablet as needed 8h 11 Jan, 2018 20 days Active Xanax 0.25 MG Orally Once a day 1 tablet 24h 30 Jan, 2018 28 days Active ProAir HFA 108 (90 Base) MCG/ACT Inhalation every 6 hrs 2 puffs as needed 6h 05 Sep, 2017 Active Aspir-81 81 MG Orally Once a day 1 tablet 24h 30 day(s) Active Amitriptyline HCl 25 MG Orally Once a day 1 tablet 24h 10 Mar, 2018 30 day(s) Active Losartan Potassium 100 mg Orally Once a day 1 tablet 24h 30 days Active Breo Ellipta 100-25 MCG/INH Inhalation Once a day 1 puff 24h 21 Sep, 2017 Active Fexofenadine-Pseudoephed ER 60-120 MG Orally Twice a day 1 tablet as needed 12h 04 Jan, 2018 Active Allergy 12 MG Orally every 12 hrs 1 tablet as needed 12h Active Lovastatin 40 mg Orally Once a day 1 tablet with the evening meal 24h 17 Jul, 2017 30 days Active Vitamin B Complex - as directed Active RESULTS No Results PROCEDURES No Known [...]
--- OUTSIDE RECORDS SUMMARY | 2018-04-06 07:51 | XMS REPORT ---
Author Author RENETTA ESTRADA Organization [facility] Address [address] [place] [address] Care Team Providers Care Dean Name Role Phone RENETTA ESTRADA Unavailable PROBLEMS Type Condition ICD9-CM Code BCB39-QR Code Onset Dates Condition Status SNOMED Code Problem Generalized anxiety disorder F41.1 Active 21477789 Problem PTSD (post-traumatic stress disorder) F43.10 Active 73456159 Problem Falling R29.6 Active 479122892 Problem Hematuria, unspecified type R31.9 Active 37630014 Problem Degenerative arthritis M19.90 Active 416099293 Problem Cervical disc disease with myelopathy M50.00 Active 86067525 Problem Panic disorder F41.0 Active 740503012 Problem Environmental allergies Z91.09 Active 246030382 Problem Moderate persistent asthma without complication J45.40 Active 303709587 Problem Allergic state, initial encounter T78.40XA Active 234624732 Problem Other chronic pain G89.29 Active 73965150 Problem Muscle spasms of both lower extremities M62.838 Active 800935960 Problem Essential hypertension I10 Active 28485318 Problem Reactive depression F32.9 Active 19034791 Problem Dorsalgia, unspecified M54.9 Active 912386266 Problem Severe episode of recurrent major depressive disorder, without psychotic features F33.2 Active 65801782 ALLERGIES No Known Allergies ENCOUNTERS Encounter Location Date Diagnosis [facility] [address] [facility] [id number] [address] Apr, [facility] [id number] [place] [address] 20860- 9417 Mar, [facility] [id number] [address] 3[address] Mar, [facility] [id number] [place] [address] 28573- 3962 Mar, [facility] [id number] [place] [address] 95036- 5201 Feb, [facility] [address] 6[address]- 6073 Feb, Hematuria, unspecified type R31.9 ; Former cigarette smoker Z87.891 and BMI 40.0-44.9, adult Z68.41 [facility] [id number] [place] [address] 59704- 4321 Feb, [facility] [id number] [place] [address] 62608- 0903 Feb, [facility] [id number] [place] [address] 13871- 4687 Feb, [facility] [id number] [place] [address] 08934- 7014 16 Feb, 2018 Degenerative arthritis M19.90 [facility] [id number] [place] [address] 06894- 3340 Feb, [facility] [id number] [place] [address] 34941- 8421 Feb, [facility] [id number] [place] [address] 46577- 0979 Feb, [facility] [id number] [place] [address] 33695- 2289 Feb, [facility] [id number] [place] [address] 01165- 0613 Feb, Severe episode of recurrent major depressive disorder, without psychotic features F33.2 [facility] [id number] [place] [address] 04040- 7305 09 Feb, 2018 Arthritis M19.90 and BMI 40.0-44.9, adult Z68.41 [facility] [id number] [place] [address] 56098- 3082 07 Feb, 2018 [facility] [id number] [address] 8[address] Feb, [facility] [id number] [place] [address] 38492- 6149 Feb, [facility] [id number] [place] [address] 477850- 1860 Feb, [facility] [id number] [place] [address] 602121- 0655 Feb, Essential hypertension I10 [facility] [id number] [place] [address] 46331- 2684 Jan, Severe episode of recurrent major depressive disorder, without psychotic features F33.2 [facility] [id number] [place] [address] 23935- 8870 Jan, [facility] [id number] [place] [address] 24506- 6549 Jan, Environmental allergies Z91.09 [facility] [id number] [place] [address] 56124- 6637 Jan, [facility] [id number] [place] [address] 12580- 0951 Jan, [facility] [address] [id number] [address]- 6140 Jan, [facility] [id number] [place] [address] 58775- 3691 Jan, [facility] [address] [address] 4227 Jan, [facility] [id number] [place] [address] 36926- 8021 Jan, Cervical disc disease with myelopathy M50.00 [facility] [address] [address] 2016 Jan, Severe episode of recurrent major depressive disorder, without psychotic features F33.2 ; Panic disorder F41.0 ; PTSD (post-traumatic stress disorder) F43.10 and BMI 40.0-44.9, adult Z68.41 [facility] [id number] [place] [address] 86823- 4625 Jan, Severe episode of recurrent major depressive disorder, without psychotic features F33.2 and Generalized anxiety disorder F41.1 [facility] [address] 31734- 8612 Jan, [facility] [address] 85680- 2314 Jan, Cervical disc disease with myelopathy M50.00 [facility] [address] 38148- 6210 Jan, [facility] [id number] [place] [address] 09156- 2275 Jan, [facility] [address] 68515- 5540 Jan, [facility] [id number] [place] [address] 40928- 0894 Jan, [facility] [id number] [place] [address] 47057- 5740 Jan, [facility] [id number] [place] [address] 55451- 0822 Jan, Environmental allergies Z91.09 and BMI 40.0-44.9, adult Z68.41 [facility] [id number] [place] [address] 75463- 5417 Jan, [facility] [address] 56711- 4549 Jan, [facility] [id number] [place] [address] 95545- 3552 Jan, Severe episode of recurrent major depressive disorder, without psychotic features F33.2 [facility] [address] 07751- 0367 Dec, Severe episode of recurrent major depressive disorder, without psychotic features F33.2 [facility] [id number] [place] [address] 90499- 9984 27 Dec, 2017 Encounter for immunization Z23 [facility] [id number] [place] [address] 34986- 3672 25 Dec, 2017 [facility] [address] 82102- 9583 24 Dec, 2017 Severe episode of recurrent major depressive disorder, without psychotic features F33.2 ; PTSD (post-traumatic stress disorder) F43.10 ; Panic disorder F41.0 and BMI 40.0-44.9, adult Z68.41 [facility] [id number] [place] [address] 19361- 6092 Dec, [facility] [id number] [place] [address] 91666- 3091 Dec, [facility] [id number] [place] [address] 59414- 0671 Dec, Essential hypertension I10 [facility] [id number] [place] [address] 37122- 9645 14 Dec, 2017 [facility] [id number] [place] [address] 70617- 0371 06 Dec, 2017 [facility] [id number] [place] [address] 78976- 0544 Dec, 2017 BMI 40.0-44.9, adult Z68.41 ; Severe episode of recurrent major depressive disorder, without psychotic features F33.2 ; PTSD (post- traumatic stress disorder) F43.10 and Panic disorder F41.0 [facility] [id number] [place] [address] 40774- 1653 Dec, 2017 [facility] [id number] [place] [address] 71444- 7950 Dec, 2017 [facility] [address] [place] [address]- 4095 Dec, Essential hypertension I10 [facility] [id number] [place] [address] 21149- 7672 Dec, Severe episode of recurrent major depressive disorder, without psychotic features F33.2 [facility] [id number] [place] [address] 24902- 8462 Dec, Severe episode of recurrent major depressive disorder, without psychotic features F33.2 and Generalized anxiety disorder F41.1 [facility] [id number] [place] [address] 37864- 0319 Nov, Cervical disc disease with myelopathy M50.00 [facility] [id number] [place] [address] 57838- 7251 Nov, Cervical disc disease with myelopathy M50.00 ; Moderate persistent asthma without complication J45.40 and BMI 40.0-44.9, adult Z68.41 [facility] [id number] [place] [address] 68871- 7664 Nov, [facility] [id number] [place] [address] 18964- 0083 Nov, [facility] [id number] [place] [address] 09064- 2503 Nov, [facility] [id number] [place] [address] 41899- 6220 Nov, [facility] [id number] [place] [address] 70892- 7558 Nov, [facility] [id number] [place] [address] 37897- 2753 Nov, [facility] [id number] [place] [address] 00989- 2658 Nov, [facility] [id number] [place] [address] 61081- 4744 Nov, [facility] [id number] [place] [address]- 5097 Nov, [facility] [id number] [place] [address] 22784- 4598 Nov, Severe episode of recurrent major depressive disorder, without psychotic features F33.2 ; PTSD (post-traumatic stress disorder) F43.10 ; Panic disorder F41.0 and BMI 40.0-44.9, adult Z68.41 [facility] [address] 13226- 1356 Nov, [facility] [address] 63738- 9807 Nov, Essential hypertension I10 [facility] [id number] [place] [address] 29201- 2053 Nov, Severe episode of recurrent major depressive disorder, without psychotic features F33.2 [place] [id number] [place] [address] 94097- 7861 Nov, Acute pain of left knee M25.562 [place] [id number] [place] [address] 57640- 5797 Nov, Severe episode of recurrent major depressive disorder, without psychotic features F33.2 ; PTSD (post-traumatic stress disorder) F43.10 ; Panic disorder F41.0 and BMI 40.0-44.9, adult Z68.41 [facility] [id number] [place] [address] 60357- 3873 Oct, [place] [id number] [place] [address] 44469- 2162 Oct, [facility] [id number] [place] [address] 91455- 2211 Oct, [facility] [id number] [place] [address] 99011- 5437 Oct, [facility] [id number] [place] [address] 74984- 7668 Oct, Dorsalgia, unspecified M54.9 [facility] [address] [place] [address]- 5012 Oct, Severe episode of recurrent major depressive disorder, without psychotic features F33.2 and Generalized anxiety disorder F41.1 [facility] [address] [place] [address]- 5926 Oct, [facility] [id number] [place] [address] 10825- 2426 Oct, [facility] [id number] [place] [address]- 0762 Oct, [facility] [id number] [place] [address], [place] [address]- 2494 Oct, [facility] [id number] [place] [address] 67696- 9025 Oct, [facility] [id number] [place] [address] 99590- 1699 Oct, [facility] [id number], [place] [address]- 8528 Oct, [facility] [id number], [place] [address]- 4736 Oct, [facility] [id number], [place] [address]- 2374 Sep, Dorsalgia, unspecified M54.9 [facility] [address], [place] [address]- 7989 Sep, [facility] [address] [address]- 4801 Sep, [facility] [address], [place] [address]- 1329 Sep, Falling R29.6 ; Essential hypertension I10 ; Chronic obstructive pulmonary disease, unspecified COPD type J44.9 and BMI 40.0-44.9, adult Z68.41 [place] [address] [facility] [id number], [place] [address]- 6410 Sep, [facility] [address] [place] [address] 98937- 9611 Sep, [facility] [id number], [place] [address] 2541 24 Sep, 2017 [facility] [id number] [place] [address] 30240- 1104 21 Sep, 2017 Mild intermittent asthma without complication J45.20 [facility] [address] [facility] [id number] [place] [address]- 4375 19 Sep, 2017 [facility] [id number] [place] [address] 11507- 8945 19 Sep, 2017 [facility] [address] [address]- 3737 19 Sep, 2017 [facility] [address], [place] [address]- 9807 18 Sep, 2017 [facility] [address] [address]- 9148 18 Sep, 2017 [facility] [address], [place] [address]- 7186 15 Sep, 2017 [facility] [address], [place] [address]- 4200 15 Sep, 2017 Essential hypertension I10 [facility] [address], [place] [address]- 3840 15 Sep, 2017 [facility] [id number], [place] [address]- 3795 15 Sep, 2017 [facility] [id number], [place] [address]- 8292 15 Sep, 2017 [facility] [address], [place] [address]- 4362 14 Sep, 2017 [facility] [address], [place] [address]- 2224 14 Sep, 2017 [facility] [address] [place] [address] 67387- 5719 14 Sep, 2017 [facility] [id number] [place] [address] 77405- 1918 13 Sep, 2017 [facility] [id number] [place] [address] 61154- 1796 Sep, [facility] [id number] [place] [address] 48282- 2075 Sep, [facility] [id number] [place] [address] 49948- 3049 Sep, [facility] [id number] [place] [address] 54200- 1710 Sep, Mild intermittent asthma without complication J45.20 [facility] [id number] [place] [address] 50583- 0838 August, Essential hypertension I10 [facility] [id number] [place] [address] 80956- 9756 August, BMI 40.0-44.9, adult Z68.41 ; Dorsalgia, unspecified M54.9 ; Allergic state, initial encounter T78.40XA ; Mild intermittent asthma without complication J45.20 and 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 [facility] [address], [place] [address]- 5514 August, [facility] [address] [place] [address] 10077- 6057 August, [facility] [id number] [place] [address] 99043- 9172 August, [facility] [address], [place] [address]- 8317 August, Reactive depression F32.9 [facility] [id number] [place] [address] 43977- 7587 August, [facility] [address] [facility] [id number] [place] [address]- 7288 August, [facility] [address] [facility] [id number] [place] [address]- 6817 August, [facility] [id number] [place] [address]- 4391 August, [facility] [address] [facility] [id number] [place] [address]- 2993 August, [facility] [address] [facility] [id number] [place] [address]- 1929 August, [facility] [id number] [place] [address]- 2216 August, [facility] [address], [place] [address]- 5588 August, Muscle spasms of both lower extremities M62.838 ; Essential hypertension I10 and Reactive depression F32.9 [facility] [id number] [place] [address]- 9007 August, [facility] [id number] [address]- 1087 Jul, [facility] [id number], [place] [address]- 3367 Jul, [facility] [id number] [address]- 7291 Jul, [facility] [place] [facility] [address] [facility] [id number] [place] [address]- 8467 Jul, [facility] [place] [facility] [address] [facility] [id number] [place] [address]- 3916 Jul, [facility] [id number], [place] [address]- 2196 Jul, [facility] [address] [facility] [id number], [place] [address]- 2525 Jul, [facility] [address] [facility] [id number], [place] [address]- 0017 Jul, [facility] [address] [facility] [id number], [place] [address]- 8098 Jul, Essential hypertension I10 ; Other chronic pain G89.29 ; Dorsalgia, unspecified M54.9 ; Reactive depression F32.9 ; Mild intermittent asthma without complication J45.20 ; Allergic state, initial encounter T78.40XA and Muscle spasms of both lower extremities M62.838 IMMUNIZATIONS No Known Immunizations SOCIAL HISTORY Never Assessed REASON FOR VISIT dark urine-GRISELDA bravo, pt has some concerns about his dark urine PLAN OF CARE Activity Details Follow Up 4 Weeks Reason:repeat UA VITAL SIGNS Height 66 in 2018-03-17 Weight 268.6 lbs 2018-03-17 Temperature 98.0 degrees Fahrenheit 2018-03-17 Heart Rate 91 bpm 2018-03-17 Respiratory Rate 20 2018-03-17 Oximetry on room air:98 % 2018-03-17 BMI 43.35 kg/m2 2018-03-17 Blood pressure systolic 110 mmHg 2018-03-17 Blood pressure diastolic 76 mmHg 2018-03-17 MEDICATIONS Medication Instructions Dosage Frequency Start Date End Date Duration Status Cyclobenzaprine HCl 10 mg Orally Three times a day 1 tablet as needed 8h Jan, 20 days Active Nabumetone Active Aspir-81 81 MG Orally Once a day 1 tablet 24h 30 day(s) Active Vitamin B Complex - as directed Active Lovastatin 40 mg Orally Once a day 1 tablet with the evening meal 24h Jul, 30 days Active Breo Ellipta 100-25 MCG/INH Inhalation Once a day 1 puff 24h Sep, Active ProAir HFA 108 (90 Base) MCG/ACT Inhalation every 6 hrs 2 puffs as needed 6h Sep, Active Fexofenadine-Pseudoephed ER 60-120 MG Orally Twice a day 1 tablet as needed 12h Jan, Active BusPIRone HCl 10 MG Orally Three times a day 1 tablet 8h Dec, 30 days Active Allergy 12 MG Orally every 12 hrs 1 tablet as needed 12h Active Atenolol 50 mg Orally Once a day 1 tablet 24h 90 days Active Zoloft 100 MG Orally Once a day 1.5 tablets daily for 1 week then take 2 tabs daily 24h 30 Active Losartan Potassium 100 mg Orally Once a day 1 tablet 24h 30 days Active Singulair 10 mg Orally Once a day 1 tablet 24h 90 days Active Xanax 0.25 MG Orally Once a day 1 tablet 24h 30 Jan, 2018 28 days Active RESULTS Name Result Date Reference Range UA LONG DIP (IN HOUSE) 2018-03-17 Lot # [id number] Exp date 07/2018 Clarity clear Color yellow Odor none GLU negative STEFFEN negative KET negative SG 1.030 BLO 2 pH 5.5 Protein negative URO 0.2 NIT negative LILIANA negative Lot # Exp date PROCEDURES Procedure Date Ordered Result Body Site URINALYSIS, AUTO, W/O SCOPE Mar 17, 2018 INSTRUCTIONS MEDICATIONS ADMINISTERED No Known Medications MEDICAL [...]
--- OUTSIDE RECORDS SUMMARY | 2018-04-06 07:51 | XMS REPORT ---
Author Author ROSALINA GRAHAM [facility] Address [address] [place] [address] Care Team Providers Care Freelance Photographer Name Role Phone ROSALINA GRAHAM Unavailable PROBLEMS Type Condition ICD9-CM Code [id number] Code Onset Dates Condition Status SNOMED Code Problem Generalized anxiety disorder F41.1 Active 24030962 Problem PTSD (post-traumatic stress disorder) F43.10 Active 29126821 Problem Falling R29.6 Active 490435088 Problem Hematuria, unspecified type R31.9 Active 25848806 Problem Degenerative arthritis M19.90 Active 720612391 Problem Cervical disc disease with myelopathy M50.00 Active 68867278 Problem Panic disorder F41.0 Active 827531181 Problem Environmental allergies Z91.09 Active 603786564 Problem Moderate persistent asthma without complication J45.40 Active 991878533 Problem Allergic state, initial encounter T78.40XA Active 352297097 Problem Other chronic pain G89.29 Active 15535786 Problem Muscle spasms of both lower extremities M62.838 Active 608805809 Problem Essential hypertension I10 Active 28157700 Problem Reactive depression F32.9 Active 86589580 Problem Dorsalgia, unspecified M54.9 Active 888954330 Problem Severe episode of recurrent major depressive disorder, without psychotic features F33.2 Active 34196726 ALLERGIES No Information ENCOUNTERS Encounter Location Date Diagnosis [facility] [address] [facility] [id number] [address] Apr, [facility] [id number] [place] [address] 08825- 4766 Mar, [facility] [address] [address] 3345 Mar, [facility] [id number] [place] [address] 84630- 9826 Mar, [facility] [id number] [place] [address] 66227- 4256 Feb, [facility] [address] [address]- 2904 Feb, Hematuria, unspecified type R31.9 ; Former cigarette smoker Z87.891 and BMI 40.0-44.9, adult Z68.41 [facility] [id number] [place] [address] 28244- 0959 Feb, [facility] [id number] [place] [address] 04559- 1605 Feb, [facility] [id number] [place] [address] 83756- 8921 Feb, [facility] [id number] [place] [address] 02505- 8483 16 Feb, 2018 Degenerative arthritis M19.90 [facility] [id number] [place] [address] 86262- 7919 Feb, [facility] [id number] [place] [address] 82991- 6886 Feb, [facility] [id number] [place] [address] 52499- 0833 Feb, [facility] [id number] [place] [address] 02278- 3610 Feb, [facility] [id number] [place] [address] 59933- 9137 Feb, Severe episode of recurrent major depressive disorder, without psychotic features F33.2 [facility] [id number] [place] [address] 94223- 8688 09 Feb, 2018 Arthritis M19.90 and BMI 40.0-44.9, adult Z68.41 [facility] [id number] [place] [address] 27052- 7451 07 Feb, 2018 [facility] [address] 9950 Feb, [facility] [id number] [place] [address] 08066- 8022 Feb, [facility] [id number] [place] [address] 090712- 0563 Feb, [facility] [id number] [place] [address] 749375- 4824 Feb, Essential hypertension I10 [facility] [id number] [place] [address] 99207- 6394 Jan, Severe episode of recurrent major depressive disorder, without psychotic features F33.2 [facility] [id number] [place] [address] 71756- 5039 Jan, [facility] [id number] [place] [address] 27669- 4445 Jan, Environmental allergies Z91.09 [facility] [id number] [place] [address] 66150- 0707 Jan, [facility] [id number] [place] [address] 50311- 1290 Jan, [facility] [address] [id number] [address]- 2025 Jan, [facility] [id number] [place] [address] 91742- 8340 Jan, [facility] [address] [address]- 7747 Jan, [facility] [id number] [place] [address] 50969- 2243 Jan, Cervical disc disease with myelopathy M50.00 [facility] [address] [address]- 5732 Jan, Severe episode of recurrent major depressive disorder, without psychotic features F33.2 ; Panic disorder F41.0 ; PTSD (post-traumatic stress disorder) F43.10 and BMI 40.0-44.9, adult Z68.41 [facility] [id number] [place] [address] 17597- 4210 Jan, Severe episode of recurrent major depressive disorder, without psychotic features F33.2 and Generalized anxiety disorder F41.1 [facility] [address] 41417- 1877 Jan, [facility] [address] 61216- 7786 Jan, Cervical disc disease with myelopathy M50.00 [facility] [address] 76963- 8305 Jan, [facility] [id number] [place] [address] 62344- 9910 Jan, [facility] [address] 99654- 7353 Jan, [facility] [id number] [place] [address] 77763- 7473 Jan, [facility] [id number] [place] [address] 57315- 1657 Jan, [facility] [id number] [place] [address] 26961- 3456 Jan, Environmental allergies Z91.09 and BMI 40.0-44.9, adult Z68.41 [facility] [id number] [place] [address] 87014- 1417 Jan, [facility] [address] 87892- 7403 Jan, [facility] [id number] [place] [address] 17293- 7871 Jan, Severe episode of recurrent major depressive disorder, without psychotic features F33.2 [facility] [address] 53765- 3004 Dec, Severe episode of recurrent major depressive disorder, without psychotic features F33.2 [facility] [id number] [place] [address] 63088- 7931 27 Dec, 2017 Encounter for immunization Z23 [facility] [id number] [place] [address] 23277- 9555 25 Dec, 2017 [facility] [address] 91773- 0029 24 Dec, 2017 Severe episode of recurrent major depressive disorder, without psychotic features F33.2 ; PTSD (post-traumatic stress disorder) F43.10 ; Panic disorder F41.0 and BMI 40.0-44.9, adult Z68.41 [facility] [id number] [place] [address] 45185- 5109 Dec, [facility] [id number] [place] [address] 77189- 5173 Dec, [facility] [id number] [place] [address] 94702- 6940 Dec, Essential hypertension I10 [facility] [id number] [place] [address] 31391- 6272 14 Dec, 2017 [facility] [id number] [place] [address] 62769- 2009 06 Dec, 2017 [facility] [id number] [place] [address] 64316- 8310 Dec, 2017 BMI 40.0-44.9, adult Z68.41 ; Severe episode of recurrent major depressive disorder, without psychotic features F33.2 ; PTSD (post- traumatic stress disorder) F43.10 and Panic disorder F41.0 [facility] [id number] [place] [address] 89498- 7125 Dec, 2017 [facility] [id number] [place] [address] 87044- 8076 Dec, 2017 [facility] [address] [place] [address]- 7392 Dec, Essential hypertension I10 [facility] [id number] [place] [address] 10914- 9657 Dec, Severe episode of recurrent major depressive disorder, without psychotic features F33.2 [facility] [id number] [place] [address] 19281- 0543 Dec, Severe episode of recurrent major depressive disorder, without psychotic features F33.2 and Generalized anxiety disorder F41.1 [facility] [id number] [place] [address] 24134- 7734 Nov, Cervical disc disease with myelopathy M50.00 [facility] [id number] [place] [address] 16527- 3593 Nov, Cervical disc disease with myelopathy M50.00 ; Moderate persistent asthma without complication J45.40 and BMI 40.0-44.9, adult Z68.41 [facility] [id number] [place] [address] 47078- 3839 Nov, [facility] [id number] [place] [address] 14845- 8883 Nov, [facility] [id number] [place] [address] 83923- 6028 Nov, [facility] [id number] [place] [address] 95361- 6804 Nov, [facility] [id number] [place] [address] 37390- 9237 Nov, [facility] [id number] [place] [address] 35734- 7336 Nov, [facility] [id number] [place] [address] 92091- 4509 Nov, [facility] [id number] [place] [address] 23551- 3936 Nov, [facility] [id number] [place] [address]- 9325 Nov, [facility] [id number] [place] [address] 54874- 6281 Nov, Severe episode of recurrent major depressive disorder, without psychotic features F33.2 ; PTSD (post-traumatic stress disorder) F43.10 ; Panic disorder F41.0 and BMI 40.0-44.9, adult Z68.41 [facility] [address] 56060- 0738 Nov, [facility] [address] 36713- 2991 Nov, Essential hypertension I10 [facility] [id number] [place] [address] 85150- 8483 Nov, Severe episode of recurrent major depressive disorder, without psychotic features F33.2 [place] [id number] [place] [address] 81930- 3931 Nov, Acute pain of left knee M25.562 [id number] [place] [address] 63821- 0095 Nov, Severe episode of recurrent major depressive disorder, without psychotic features F33.2 ; PTSD (post-traumatic stress disorder) F43.10 ; Panic disorder F41.0 and BMI 40.0-44.9, adult Z68.41 [facility] [id number] [place] [address] 39994- 0734 Oct, [place] [id number] [place] [address] 95888- 9891 Oct, [facility] [id number] [place] [address] 56552- 0529 Oct, [facility] [id number] [place] [address] 15315- 2630 Oct, [facility] [id number] [place] [address] 71012- 7817 Oct, Dorsalgia, unspecified M54.9 [facility] [address] [address]- 3096 Oct, Severe episode of recurrent major depressive disorder, without psychotic features F33.2 and Generalized anxiety disorder F41.1 [facility] [address] [address]- 2839 Oct, [facility] [id number] [place] [address] 07092- 8955 Oct, [facility] [address] [address]- 9264 Oct, [facility] [id number] [place] [address], [place] [address]- 4206 Oct, [facility] [address] [place] [address] 93301- 1723 Oct, [facility] [id number] [place] [address] 42023- 4219 Oct, [facility] [address], [place] [address]- 2532 Oct, [facility] [address] [address]- 7465 Oct, [facility] [address], [place] [address]- 3232 Sep, Dorsalgia, unspecified M54.9 [facility] [address], [place] [address]- 4613 Sep, [facility] [address], [place] [address]- 5000 Sep, [facility] [address], [place] [address]- 2365 Sep, Falling R29.6 ; Essential hypertension I10 ; Chronic obstructive pulmonary disease, unspecified COPD type J44.9 and BMI 40.0-44.9, adult Z68.41 [place] [address] [facility] [id number] [address]- 0500 Sep, [facility] [id number] [place] [address] 94748- 5266 Sep, [facility] [address], [place] [address] 2545 24 Sep, 2017 [facility] [id number] [place] [address] 28951- 8247 21 Sep, 2017 Mild intermittent asthma without complication J45.20 [facility] [address] [facility] [id number] [place] [address]- 3779 19 Sep, 2017 [facility] [address] [place] [address] 82372- 1121 19 Sep, 2017 [facility] [address], [place] [address]- 9277 19 Sep, 2017 [facility] [address], [place] [address]- 1492 18 Sep, 2017 [facility] [address], [place] [address]- 8812 18 Sep, 2017 [facility] [address], [place] [address]- 2366 15 Sep, 2017 [facility] [address], [place] [address]- 1956 15 Sep, 2017 Essential hypertension I10 [facility] [address], [place] [address]- 1462 15 Sep, 2017 [facility] [id number] [address]- 1725 15 Sep, 2017 [facility] [id number] [address]- 1637 15 Sep, 2017 [facility] [address], [place] [address]- 2187 14 Sep, 2017 [facility] [address], [place] [address]- 7910 14 Sep, 2017 [facility] [address] [place] [address] 79907- 4259 14 Sep, 2017 [facility] [id number] [place] [address] 25514- 3572 13 Sep, 2017 [facility] [id number] [place] [address] 59438- 2321 Sep, [facility] [id number] [place] [address] 53903- 3293 Sep, [facility] [id number] [place] [address] 18732- 7193 Sep, [facility] [id number] [place] [address] 54736- 4575 Sep, Mild intermittent asthma without complication J45.20 [facility] [id number] [place] [address] 08297- 6028 August, Essential hypertension I10 [facility] [id number] [place] [address] 21009- 0800 August, BMI 40.0-44.9, adult Z68.41 ; Dorsalgia, unspecified M54.9 ; Allergic state, initial encounter T78.40XA ; Mild intermittent asthma without complication J45.20 and 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 [facility] [address], [place] [address]- 2675 August, [facility] [address] [place] [address] 40767- 0322 August, [facility] [id number] [place] [address] 54682- 6826 August, [facility] [address], [place] [address]- 2046 August, Reactive depression F32.9 [facility] [id number] [place] [address] 67452- 8674 August, [facility] [address] [facility] [id number] [place] [address]- 4855 August, [facility] [address] [facility] [id number] [place] [address]- 9484 August, [facility] [id number] [address]- 7029 August, [facility] [address] [facility] [id number] [place] [address]- 6942 August, [facility] [address] [facility] [id number] [place] [address]- 4148 August, [facility] [id number] [address]- 0583 August, [facility] [address], [place] [address]- 7450 August, Muscle spasms of both lower extremities M62.838 ; Essential hypertension I10 and Reactive depression F32.9 [facility] [address] [address]- 1301 August, [facility] [id number] [address]- 4440 Jul, [facility] [id number] [address]- 9869 Jul, [facility] [id number] [address]- 1697 Jul, [facility] [place] [facility] [address] [facility] [id number] [place] [address]- 8677 Jul, [facility] [place] [facility] [address] [facility] [id number] [place] [address]- 0858 Jul, [facility] [id number] [address]- 2048 Jul, [facility] [address] [facility] [id number] [address]- 4595 Jul, [facility] [address] [facility] [id number] [place] [address]- 3733 Jul, [facility] [address] [facility] [id number] [address]- 2912 Jul, Essential hypertension I10 ; Other chronic pain G89.29 ; Dorsalgia, unspecified M54.9 ; Reactive depression F32.9 ; Mild intermittent asthma without complication J45.20 ; Allergic state, initial encounter T78.40XA and Muscle spasms of both lower extremities M62.838 IMMUNIZATIONS No Known Immunizations SOCIAL HISTORY Never Assessed REASON FOR VISIT Lab and urine tests PLAN OF CARE VITAL SIGNS MEDICATIONS Unknown [...]
--- OUTSIDE RECORDS SUMMARY | 2018-04-06 07:51 | XMS REPORT ---
Author Author ROSALINA GRAHAM Organization [facility] Address [address] [place] [address] Care Team Providers Care Crystal Finisher Name Role Phone ROSALINA GRAHAM Unavailable PROBLEMS Type Condition ICD9-CM Code PGA79-MI Code Onset Dates Condition Status SNOMED Code Problem Severe episode of recurrent major depressive disorder, without psychotic features F33.2 Active 67520081 Problem Falling R29.6 Active 897241407 Problem Generalized anxiety disorder F41.1 Active 86001573 Problem Degenerative arthritis M19.90 Active 349050948 Problem Environmental allergies Z91.09 Active 299939601 Problem Panic disorder F41.0 Active 002652443 Problem PTSD (post-traumatic stress disorder) F43.10 Active 69327943 Problem Moderate persistent asthma without complication J45.40 Active 874459305 Problem Cervical disc disease with myelopathy M50.00 Active 63169506 Problem Dorsalgia, unspecified M54.9 Active 580465473 Problem Other chronic pain G89.29 Active 39825039 Problem Allergic state, initial encounter T78.40XA Active 187023849 Problem Muscle spasms of both lower extremities M62.838 Active 639627947 Problem Essential hypertension I10 Active 85835719 Problem Reactive depression F32.9 Active 20674635 ALLERGIES No Information ENCOUNTERS Encounter Location Date Diagnosis [facility] [id number] [address] Mar, [facility] [id number] [address] 22[address] Mar, [facility] [address] [address] 4[address] Feb, [facility] [id number] [address] 1897 Feb, [facility] [address] [address] 1971 Feb, [facility] [id number] [place] [address] 61698- 4919 Feb, [facility] [id number] [place] [address] 29645- 0047 Feb, [facility] [id number] [place] [address] 42941- 8720 Feb, Degenerative arthritis M19.90 [facility] [id number] [place] [address] 62936- 2953 Feb, [facility] [id number] [place] [address] 18723- 7721 Feb, [facility] [id number] [place] [address] 36319- 7518 Feb, [facility] [id number] [place] [address] 95702- 0847 Feb, [facility] [id number] [place] [address] 96300- 9703 Feb, Severe episode of recurrent major depressive disorder, without psychotic features F33.2 [facility] [address] [address] 45[address] Feb, Arthritis M19.90 and BMI 40.0-44.9, adult Z68.41 [facility] [address] [address]- 7394 Feb, [facility] [id number] [place] [address] 35813- 3102 Feb, [facility] [id number] [place] [address] 91075- 1322 Feb, [facility] [id number] [place] [address] 30674- 6384 Feb, [facility] [address] [place] [address] 17859- 4450 Feb, Essential hypertension I10 [facility] [address] [address] 9[address] Jan, Severe episode of recurrent major depressive disorder, without psychotic features F33.2 [facility] [id number] [address] 5856 Jan, [facility] [id number] [place] [address] 90834- 0548 Jan, Environmental allergies Z91.09 [facility] [id number] [place] [address] 91263- 5586 Jan, [facility] [id number] [place] [address] 18585- 7642 Jan, [facility] [id number] [place] [address] 89481- 7115 Jan, [facility] [id number] [place] [address] 20966- 4740 Jan, [facility] [id number] [place] [address] 37799- 4971 Jan, [facility] [id number] [place] [address] 34200- 9460 Jan, Cervical disc disease with myelopathy M50.00 [facility] [id number] [place] [address] 21422- 7792 Jan, Severe episode of recurrent major depressive disorder, without psychotic features F33.2 ; Panic disorder F41.0 ; PTSD (post-traumatic stress disorder) F43.10 and BMI 40.0-44.9, adult Z68.41 [facility] [id number] [place] [address] 18079- 4524 Jan, Severe episode of recurrent major depressive disorder, without psychotic features F33.2 and Generalized anxiety disorder F41.1 [facility] [id number] [place] [address] 01884- 7744 Jan, [facility] [address] [address] 1997 Jan, Cervical disc disease with myelopathy M50.00 [facility] [id number] [place] [address] 76771- 6133 Jan, [facility] [id number] [place] [address] 53980- 3909 Jan, [facility] [id number] [place] [address] 31654- 7531 Jan, [facility] [id number] [place] [address] 61999- 3704 Jan, [facility] [id number] [place] [address] 84667- 4197 Jan, [facility] [id number] [place] [address] 18353- 9348 Jan, Environmental allergies Z91.09 and BMI 40.0-44.9, adult Z68.41 [facility] [id number] [address]- 5068 Jan, [facility] [id number] [place] [address] 06794- 2204 Jan, [facility] [id number] [place] [address] 13861- 9235 Jan, Severe episode of recurrent major depressive disorder, without psychotic features F33.2 [facility] [address] [address]- 0569 Dec, Severe episode of recurrent major depressive disorder, without psychotic features F33.2 [facility] [id number] [place] [address] 07018- 9998 Dec, Encounter for immunization Z23 [facility] [id number] [place] [address] 39261- 6054 Dec, [facility] [id number] [place] [address] 45102- 0663 24 Dec, 2017 Severe episode of recurrent major depressive disorder, without psychotic features F33.2 ; PTSD (post-traumatic stress disorder) F43.10 ; Panic disorder F41.0 and BMI 40.0-44.9, adult Z68.41 [facility] [address] [address]- 6896 23 Dec, 2017 [facility] [id number] [place] [address] 18051- 1583 Dec, [facility] [id number] [place] [address] 242785- 3749 Dec, Essential hypertension I10 [facility] [id number] [place] [address] 38990- 4789 14 Dec, 2017 [facility] [id number] [place] [address] 68298- 2882 Dec, [facility] [id number] [place] [address] 80461- 6943 Dec, BMI 40.0-44.9, adult Z68.41 ; Severe episode of recurrent major depressive disorder, without psychotic features F33.2 ; PTSD (post- traumatic stress disorder) F43.10 and Panic disorder F41.0 [facility] [address] [address]- 6745 Dec, 2017 [facility] [id number] [place] [address] 00065- 8273 Dec, 2017 [facility] [address] [address]- 2544 Dec, Essential hypertension I10 [facility] [id number] [place] [address] 13526- 8381 Dec, Severe episode of recurrent major depressive disorder, without psychotic features F33.2 [facility] [address] [address]- 5522 Dec, Severe episode of recurrent major depressive disorder, without psychotic features F33.2 and Generalized anxiety disorder F41.1 [facility] [address] [address]- 1813 Nov, Cervical disc disease with myelopathy M50.00 [facility] [id number] [place] [address] 75090- 2705 Nov, Cervical disc disease with myelopathy M50.00 ; Moderate persistent asthma without complication J45.40 and BMI 40.0-44.9, adult Z68.41 [facility] [id number] [address]- 7366 Nov, [facility] [id number] [place] [address] 58463- 4061 Nov, [facility] [id number] [place] [address] 59213- 3800 Nov, [facility] [id number] [place] [address] 74179- 9761 Nov, [facility] [id number] [place] [address] 63342- 4997 Nov, [facility] [id number] [place] [address] 97280- 8015 Nov, [facility] [address] [address]- 2359 Nov, [facility] [address] [address]- 3414 Nov, [facility] [id number] [address]- 8655 Nov, [facility] [id number] [place] [address] 20358- 8482 Nov, Severe episode of recurrent major depressive disorder, without psychotic features F33.2 ; PTSD (post-traumatic stress disorder) F43.10 ; Panic disorder F41.0 and BMI 40.0-44.9, adult Z68.41 [facility] [id number] [place] [address] 45837- 2589 Nov, [facility] [id number] [place] [address] 93385- 7812 Nov, Essential hypertension I10 [facility] [id number] [place] [address] 26535- 8853 Nov, Severe episode of recurrent major depressive disorder, without psychotic features F33.2 [facility] [id number] [place] [address] 53709- 8517 Nov, Acute pain of left knee M25.562 [facility] [id number] [place] [address] 80530- 5291 Nov, Severe episode of recurrent major depressive disorder, without psychotic features F33.2 ; PTSD (post-traumatic stress disorder) F43.10 ; Panic disorder F41.0 and BMI 40.0-44.9, adult Z68.41 [facility] [id number] [place] [address] 61941- 1888 Oct, [facility] [id number] [place] [address] 44140- 8689 Oct, [facility] [id number] [place] [address] 74059- 2989 Oct, [facility] [id number] [place] [address] 11411- 5617 Oct, [facility] [id number] [place] [address] 37206- 8233 Oct, Dorsalgia, unspecified M54.9 [facility] [id number] [place] [address] 54335- 9191 Oct, Severe episode of recurrent major depressive disorder, without psychotic features F33.2 and Generalized anxiety disorder F41.1 [facility] [id number] [place] [address] 15614- 1095 Oct, [facility] [id number], [place] [address]- 2655 Oct, [facility] [address] [address]- 7545 Oct, [facility] [address] [address]- 5340 Oct, [facility] [address] [address]- 3661 Oct, [facility] [address] [address]- 5358 Oct, [facility] [id number] [place] [address] 74718- 6877 Oct, [facility] [address] [address]- 1999 Oct, [facility] [address] [address]- 1929 Sep, Dorsalgia, unspecified M54.9 [facility] [address] [address]- 1005 Sep, [facility] [address] [address]- 9488 Sep, [facility] [address], [place] [address]- 1671 Sep, Falling R29.6 ; Essential hypertension I10 ; Chronic obstructive pulmonary disease, unspecified COPD type J44.9 and BMI 40.0-44.9, adult Z68.41 [facility] [address] [address]- 6812 Sep, [facility] [address] [address]- 9921 Sep, [facility] [address] [address]- 4648 Sep, [facility] [address] [address]- 4402 21 Sep, 2017 Mild intermittent asthma without complication J45.20 [facility] [address] [place] [address] 99064- 5394 19 Sep, 2017 [facility] [address] [address]- 9671 19 Sep, 2017 [facility] [id number] [place] [address] 62524- 2572 19 Sep, 2017 [facility] [id number] [place] [address] 95911- 0995 18 Sep, 2017 [facility] [id number] [place] [address] 51898- 8013 18 Sep, 2017 [facility] [address] [place] [address] 80434- 9558 15 Sep, 2017 [facility] [address] [place] [address] 10156- 8983 15 Sep, 2017 Essential hypertension I10 [facility] [address] [place] [address] 10764- 0215 15 Sep, 2017 [facility] [address] [place] [address] 43991- 5878 15 Sep, 2017 [facility] [address] [address]- 2687 15 Sep, 2017 [facility] [address] [address]- 8015 14 Sep, 2017 [facility] [id number] [address]- 3255 14 Sep, 2017 [facility] [address] [place] [address] 58321- 6793 14 Sep, 2017 [facility] [id number] [address]- 6340 13 Sep, 2017 [facility] [id number] [place] [address] 12502- 8513 Sep, [facility] [id number] [place] [address] 09116- 1997 Sep, [facility] [id number] [place] [address] 30161- 8725 Sep, [facility] [id number] [place] [address] 11445- 3824 Sep, Mild intermittent asthma without complication J45.20 [facility] [id number] [place] [address] 55979- 8609 August, Essential hypertension I10 [facility] [id number] [place] [address] 62294- 8555 August, BMI 40.0-44.9, adult Z68.41 ; Dorsalgia, unspecified M54.9 ; Allergic state, initial encounter T78.40XA ; Mild intermittent asthma without complication J45.20 and 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 [facility] [id number] [place] [address] 34417- 9139 August, [facility] [id number] [place] [address] 66572- 8876 August, [facility] [id number] [place] [address] 50380- 5940 August, [facility] [id number] [place] [address] 51772- 8202 August, Reactive depression F32.9 [facility] [id number] [address]- 5425 August, [facility] [id number] [place] [address] 34855- 6307 August, [facility] [id number] [place] [address] 77907- 3887 August, [facility] [id number] [place] [address] 16966- 3144 August, [facility] [address] [address]- 1811 August, [facility] [id number] [place] [address] 55006- 0532 August, [facility] [id number] [place] [address] 62986- 8061 August, [facility] [id number] [place] [address] 91847- 7549 August, Muscle spasms of both lower extremities M62.838 ; Essential hypertension I10 and Reactive depression F32.9 [facility] [id number] [place] [address] 99781- 3314 August, [facility] [id number] [place] [address] 00075- 0698 Jul, [facility] [id number] [place] [address] 47134- 2518 Jul, [facility] [id number] [place] [address] 93857- 3993 Jul, [facility] [id number] [place] [address] 76202- 3770 Jul, [facility] [id number] [place] [address] 74635- 2950 Jul, [facility] [id number] [place] [address] 76451- 2774 Jul, [facility] [address] [address]- 6143 Jul, [facility] [id number] [place] [address] 95649- 8187 Jul, [facility] [address] [address]- 7711 Jul, Essential hypertension I10 ; Other chronic pain G89.29 ; Dorsalgia, unspecified M54.9 ; Reactive depression F32.9 ; Mild intermittent asthma without complication J45.20 ; Allergic state, initial encounter T78.40XA and Muscle spasms of both lower extremities M62.838 IMMUNIZATIONS No Known Immunizations SOCIAL HISTORY Never Assessed REASON FOR VISIT controlled med refill PLAN OF CARE VITAL SIGNS MEDICATIONS Medication Instructions Dosage Frequency Start Date End Date Duration Status Xanax 0.25 MG Orally Once a day 1 tablet 24h 30 Jan, 2018 28 days Active RESULTS No Results PROCEDURES [...]
--- OUTSIDE RECORDS SUMMARY | 2018-04-06 07:52 | XMS REPORT ---
Author Author ROSALINA GRAHAM [facility] Address [address] [place] [address] Care Team Providers Care Director Public Policy Name Role Phone ROSALINA GRAHAM Unavailable PROBLEMS Type Condition ICD9-CM Code QGU55-QK Code Onset Dates Condition Status SNOMED Code Problem Generalized anxiety disorder F41.1 Active 17631854 Problem Falling R29.6 Active 338034317 Problem Severe episode of recurrent major depressive disorder, without psychotic features F33.2 Active 53745481 Problem Arthritis M19.90 Active 6301360 Problem Environmental allergies Z91.09 Active 338329059 Problem Panic disorder F41.0 Active 276600033 Problem PTSD (post-traumatic stress disorder) F43.10 Active 41349909 Problem Moderate persistent asthma without complication J45.40 Active 063313254 Problem Cervical disc disease with myelopathy M50.00 Active 65800074 Problem Muscle spasms of both lower extremities M62.838 Active 093205170 Problem Essential hypertension I10 Active 63063621 Problem Allergic state, initial encounter T78.40XA Active 729770217 Problem Dorsalgia, unspecified M54.9 Active 762437610 Problem Reactive depression F32.9 Active 87081611 Problem Other chronic pain G89.29 Active 16123214 ALLERGIES No Information ENCOUNTERS Encounter Location Date Diagnosis [facility] [id number] [address] Mar, [facility] [address] [address] 6[address] Mar, [facility] [address], [place] [address] 49[address] Feb, [facility] [id number], [place] [address] 6[address] Feb, [facility] [id number] [place] [address] 87456- 2291 15 Feb, 2018 [facility] [id number] [place] [address] 85276- 9308 Feb, [facility] [id number] [place] [address] 89167- 2471 Feb, [facility] [id number] [place] [address] 86027- 9875 Feb, Severe episode of recurrent major depressive disorder, without psychotic features F33.2 [facility] [address] [address]- [address] Feb, Arthritis M19.90 and BMI 40.0-44.9, adult Z68.41 [facility] [address] [address]- [address]60 Feb, [facility] [address] [address]- 2874 Feb, [facility] [id number] [place] [address] 06735- 4567 Feb, [facility] [address] 81973- 2295 Feb, [facility] [id number] [place] [address] 77092- 8747 Feb, Essential hypertension I10 [facility] [id number] [place] [address] 61483- 5243 Jan, Severe episode of recurrent major depressive disorder, without psychotic features F33.2 [facility] [id number] [place] [address] 69599- 8826 Jan, [facility] [address] 35[address]- 3468 Jan, Environmental allergies Z91.09 [facility] [id number] [place] [address] 99718- 4339 Jan, [facility] [address], [place] [address] 74[address] Jan, [facility] [id number] [address] 2059 Jan, [facility] [id number] [address] 1084 Jan, [facility] [id number] [place] [address] 46789- 1640 Jan, [facility] [id number] [place] [address] 34759- 3691 Jan, Cervical disc disease with myelopathy M50.00 [facility] [id number] [place] [address] 94847- 7720 Jan, Severe episode of recurrent major depressive disorder, without psychotic features F33.2 ; Panic disorder F41.0 ; PTSD (post-traumatic stress disorder) F43.10 and BMI 40.0-44.9, adult Z68.41 [facility] [address], [place] [address]- 8950 Jan, Severe episode of recurrent major depressive disorder, without psychotic features F33.2 and Generalized anxiety disorder F41.1 [facility] [address], [place] [address]- 2531 Jan, [facility] [address], [place] [address] 2068 Jan, Cervical disc disease with myelopathy M50.00 [facility] [address], [place] [address]- 7224 Jan, [facility] [id number] [place] [address] 86324- 5752 Jan, [facility] [address], [place] [address]- 2471 Jan, [facility] [id number] [place] [address] 32765- 0039 Jan, [facility] [id number] [place] [address] 74800- 2171 Jan, [facility] [address] [address]- 4125 Jan, Environmental allergies Z91.09 and BMI 40.0-44.9, adult Z68.41 [facility] [address] [address]- 1981 Jan, [facility] [address] [address]- 2966 Jan, [facility] [address] [address]- 0621 Jan, Severe episode of recurrent major depressive disorder, without psychotic features F33.2 [facility] [id number] [place] [address] 96656- 6867 Dec, Severe episode of recurrent major depressive disorder, without psychotic features F33.2 [facility] [id number] [place] [address] 38361- 5702 27 Dec, 2017 Encounter for immunization Z23 [facility] [id number] [place] [address] 98684- 8085 Dec, [facility] [id number] [place] [address] 94220- 1840 24 Dec, 2017 Severe episode of recurrent major depressive disorder, without psychotic features F33.2 ; PTSD (post-traumatic stress disorder) F43.10 ; Panic disorder F41.0 and BMI 40.0-44.9, adult Z68.41 [facility] [id number] [place] [address] 51865- 4164 Dec, [facility] [id number] [place] [address] 66534- 3627 Dec, [facility] [id number] [place] [address] 30333- 3957 Dec, Essential hypertension I10 [facility] [address], [place] [address]- 7067 14 Dec, 2017 [facility] [id number] [place] [address] 07140- 0808 Dec, [facility] [id number] [place] [address] 47705- 0975 Dec, BMI 40.0-44.9, adult Z68.41 ; Severe episode of recurrent major depressive disorder, without psychotic features F33.2 ; PTSD (post- traumatic stress disorder) F43.10 and Panic disorder F41.0 [facility] [id number] [place] [address] 33061- 9336 Dec, [facility] [id number] [place] [address] 03764- 6698 Dec, [facility] [id number] [place] [address] 52001- 0617 Dec, Essential hypertension I10 [facility] [id number] [place] [address] 17800- 5106 Dec, Severe episode of recurrent major depressive disorder, without psychotic features F33.2 [facility] [id number] [place] [address] 68649- 5451 Dec, Severe episode of recurrent major depressive disorder, without psychotic features F33.2 and Generalized anxiety disorder F41.1 [facility] [id number] [place] [address] 55008- 2399 Nov, Cervical disc disease with myelopathy M50.00 [facility] [address] [place] [address] 22563- 3593 Nov, Cervical disc disease with myelopathy M50.00 ; Moderate persistent asthma without complication J45.40 and BMI 40.0-44.9, adult Z68.41 [facility] [address] [place] [address] 43884- 5117 Nov, [facility] [id number], [place] [address]- 2706 Nov, [facility] [address], [place] [address]- 4858 Nov, [facility] [address], [place] [address]- 9057 Nov, [facility] [id number] [place] [address] 07645- 4827 Nov, [facility] [id number] [place] [address] 60288- 9342 Nov, [facility] [id number] [place] [address] 00707- 4901 Nov, [facility] [id number] [place] [address] 88311- 3161 Nov, [facility] [id number] [place] [address] 20644- 2996 Nov, [facility] [address] [place] [address] 02809- 0638 Nov, Severe episode of recurrent major depressive disorder, without psychotic features F33.2 ; PTSD (post-traumatic stress disorder) F43.10 ; Panic disorder F41.0 and BMI 40.0-44.9, adult Z68.41 [facility] [address], [place] [address]- 6587 Nov, [facility] [id number] [place] [address] 27447- 4120 Nov, Essential hypertension I10 [facility] [address], [place] [address]- 2449 Nov, Severe episode of recurrent major depressive disorder, without psychotic features F33.2 [facility] [address], [place] [address]- 7854 Nov, Acute pain of left knee M25.562 [facility] [id number] [place] [address] 56465- 6773 Nov, Severe episode of recurrent major depressive disorder, without psychotic features F33.2 ; PTSD (post-traumatic stress disorder) F43.10 ; Panic disorder F41.0 and BMI 40.0-44.9, adult Z68.41 [facility] [id number] [place] [address] 77594- 2755 Oct, [facility] [id number] [place] [address] 93648- 2366 Oct, [facility] [id number] [place] [address] 18859- 5743 Oct, [facility] [id number] [place] [address] 71979- 4951 Oct, [facility] [id number] [place] [address] 75607- 9495 Oct, Dorsalgia, unspecified M54.9 [facility] [id number] [place] [address] 94400- 0963 Oct, Severe episode of recurrent major depressive disorder, without psychotic features F33.2 and Generalized anxiety disorder F41.1 [facility] [id number] [place] [address] 31942- 5478 Oct, [facility] [id number] [place] [address] 05806- 7350 Oct, [facility] [id number] [place] [address] 97200- 0118 Oct, [facility] [id number] [place] [address] 32625- 8677 Oct, [facility] [id number] [place] [address] 73329- 2140 Oct, [facility] [id number] [place] [address] 31821- 0417 Oct, [facility] [id number] [place] [address] 78199- 2230 Oct, [facility] [id number] [place] [address] 77824- 8373 Oct, [facility] [id number] [place] [address] 95634- 4101 Sep, Dorsalgia, unspecified M54.9 [facility] [id number] [place] [address] 96215- 7869 Sep, [facility] [id number] [place] [address] 31131- 5345 Sep, [facility] [id number] [place] [address] 41226- 3582 Sep, Falling R29.6 ; Essential hypertension I10 ; Chronic obstructive pulmonary disease, unspecified COPD type J44.9 and BMI 40.0-44.9, adult Z68.41 [facility] [id number] [place] [address] 11943- 8866 Sep, [facility] [id number] [place] [address] 87935- 0516 Sep, [facility] [id number] [place] [address] 53587- 6256 Sep, [facility] [id number] [place] [address] 00026- 2460 Sep, Mild intermittent asthma without complication J45.20 [facility] [id number] [place] [address] 39721- 8060 Sep, [facility] [id number] [place] [address] 11322- 8804 Sep, [facility] [id number] [place] [address] 90751- 2554 Sep, [facility] [id number] [place] [address] 69800- 2365 Sep, [facility] [id number] [place] [address] 58640- 0925 18 Sep, 2017 [facility] [address] [place] [address] 20273- 0218 15 Sep, 2017 [facility] [address], [place] [address]- 3564 15 Sep, 2017 Essential hypertension I10 [facility] [address] [place] [address] 95130- 0284 15 Sep, 2017 [facility] [address] [place] [address] 89715- 0653 15 Sep, 2017 [facility] [address] [place] [address] 27766- 1988 15 Sep, 2017 [facility] [address] [place] [address] 52808- 3304 14 Sep, 2017 [facility] [address] [place] [address] 46000- 5846 14 Sep, 2017 [facility] [address], [place] [address]- 5108 14 Sep, 2017 [facility] [address] [place] [address] 14540- 4031 13 Sep, 2017 [facility] [address], [place] [address]- 0496 13 Sep, 2017 [facility] [address], [place] [address]- 9439 13 Sep, 2017 [facility] [address], [place] [address]- 4572 12 Sep, 2017 [facility] [address] [place] [address] 31373- 9308 05 Sep, 2017 Mild intermittent asthma without complication J45.20 [facility] [address], [place] [address]- 2458 August, Essential hypertension I10 [facility] [address] [place] [address] 25782- 8786 August, BMI 40.0-44.9, adult Z68.41 ; Dorsalgia, unspecified M54.9 ; Allergic state, initial encounter T78.40XA ; Mild intermittent asthma without complication J45.20 and 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 [facility] [id number] [place] [address] 46223- 0501 August, [facility] [id number] [place] [address] 82137- 1788 August, [facility] [id number] [place] [address] 99840- 7464 August, [facility] [id number] [place] [address] 45619- 7715 August, Reactive depression F32.9 [facility] [id number] [place] [address] 02358- 3434 August, [facility] [id number] [place] [address] 08128- 4771 August, [facility] [id number] [place] [address] 66862- 4144 August, [facility] [id number] [place] [address] 10879- 0400 August, [facility] [id number] [place] [address] 21493- 9272 August, [facility] [id number] [place] [address] 14407- 5991 August, [facility] [id number] [place] [address] 62357- 4653 August, [facility] [id number] [place] [address] 69169- 8311 August, Muscle spasms of both lower extremities M62.838 ; Essential hypertension I10 and Reactive depression F32.9 [facility] [id number] [place] [address] 11514073- 3681 August, [facility] [address], [place] [address]- 8502 Jul, [facility] [address] 9046 Jul, [facility] [address], [place] [address]- 5566 Jul, [facility] [address], [place] [address]- 3440 Jul, [facility] [address], [place] [address]- 4693 Jul, [facility] [address], [place] [address]- 9673 Jul, [facility] [address], [place] [address]- 9446 Jul, [facility] [address], [place] [address]- 3552 Jul, [facility] [address], [place] [address]- 7615 Jul, Essential hypertension I10 ; Other chronic pain G89.29 ; Dorsalgia, unspecified M54.9 ; Reactive depression F32.9 ; Mild intermittent asthma without complication J45.20 ; Allergic state, initial encounter T78.40XA and Muscle spasms of both lower extremities M62.838 IMMUNIZATIONS No Known Immunizations SOCIAL HISTORY Never Assessed REASON FOR VISIT Re:RE:Re:Medication Sent PLAN OF CARE VITAL SIGNS MEDICATIONS Unknown [...]
--- OUTSIDE RECORDS SUMMARY | 2018-04-06 07:52 | XMS REPORT ---
Author Author ROSALINA GRAHAM Organization [facility] Address [address] [place] [address] Care Team Providers Care Food Service Supervisor Name Role Phone ROSALINA GRAHAM Unavailable PROBLEMS Type Condition ICD9-CM Code JSQ40-MX Code Onset Dates Condition Status SNOMED Code Problem Severe episode of recurrent major depressive disorder, without psychotic features F33.2 Active 85441402 Problem Falling R29.6 Active 750583146 Problem Generalized anxiety disorder F41.1 Active 18804070 Problem Degenerative arthritis M19.90 Active 439838913 Problem Environmental allergies Z91.09 Active 924197943 Problem Panic disorder F41.0 Active 813703651 Problem PTSD (post-traumatic stress disorder) F43.10 Active 70117985 Problem Moderate persistent asthma without complication J45.40 Active 779751104 Problem Cervical disc disease with myelopathy M50.00 Active 11373416 Problem Dorsalgia, unspecified M54.9 Active 177788937 Problem Other chronic pain G89.29 Active 88966507 Problem Allergic state, initial encounter T78.40XA Active 168340829 Problem Muscle spasms of both lower extremities M62.838 Active 943342146 Problem Essential hypertension I10 Active 10552253 Problem Reactive depression F32.9 Active 20930229 ALLERGIES No Information ENCOUNTERS Encounter Location Date Diagnosis [facility] [id number] [address] Mar, [facility] [id number], [place] [address] Mar, [facility] [address], [place] [address] 4[address] Feb, [facility] [id number] [address] 8411 Feb, [facility] [id number] [place] [address] 28181- 0794 16 Feb, 2018 [facility] [id number] [place] [address] 34688- 0156 Feb, Degenerative arthritis M19.90 [facility] [id number] [place] [address] 84721- 9062 15 Feb, 2018 [facility] [id number] [place] [address] 22853- 7132 Feb, [facility] [id number] [place] [address] 42868- 6096 Feb, [facility] [address] [address]- [address]87 Feb, [facility] [id number] [place] [address] 40495- 6240 Feb, Severe episode of recurrent major depressive disorder, without psychotic features F33.2 [facility] [id number] [place] [address] 66021- 7034 Feb, Arthritis M19.90 and BMI 40.0-44.9, adult Z68.41 [facility] [id number] [place] [address] 67427- 9380 Feb, [facility] [id number] [place] [address] 96515- 1732 Feb, [facility] [id number] [place] [address] 88244- 3268 Feb, [facility] [id number] [place] [address] 88160- 7017 Feb, [facility] [id number] [place] [address] 06537- 9142 Feb, Essential hypertension I10 [facility] [id number] [place] [address] 09542- 6518 Jan, Severe episode of recurrent major depressive disorder, without psychotic features F33.2 [facility] [address], [place] [address] 114[address] Jan, [facility] [address], [place] [address] 1239 Jan, Environmental allergies Z91.09 [facility] [address], [place] [address] 85[address] Jan, [facility] [id number] [place] [address] 74215- 3044 Jan, [facility] [address], [place] [address] 6709 Jan, [facility] [id number] [place] [address] 59831- 2243 Jan, [facility] [address] [place] [address] 99364- 9376 Jan, [facility] [address] [place] [address] 29708- 3673 Jan, Cervical disc disease with myelopathy M50.00 [facility] [address] [place] [address] 95719- 4305 Jan, Severe episode of recurrent major depressive disorder, without psychotic features F33.2 ; Panic disorder F41.0 ; PTSD (post-traumatic stress disorder) F43.10 and BMI 40.0-44.9, adult Z68.41 [facility] [address], [place] [address] 9915 Jan, Severe episode of recurrent major depressive disorder, without psychotic features F33.2 and Generalized anxiety disorder F41.1 [facility] [address], [place] [address]- 3297 Jan, [facility] [address], [place] [address] 0675 Jan, Cervical disc disease with myelopathy M50.00 [facility] [id number] [place] [address] 68521- 8186 Jan, [facility] [address], [place] [address]- 8781 Jan, [facility] [id number] [place] [address] 47415- 1074 Jan, [facility] [id number] [place] [address] 09360- 1072 Jan, [facility] [id number] [place] [address] 54022- 9658 Jan, [facility] [id number] [place] [address] 95915- 7534 Jan, Environmental allergies Z91.09 and BMI 40.0-44.9, adult Z68.41 [facility] [id number] [place] [address] 96091- 4839 Jan, [facility] [id number] [place] [address] 63855- 4958 Jan, [facility] [id number] [place] [address] 53111- 4869 Jan, Severe episode of recurrent major depressive disorder, without psychotic features F33.2 [facility] [address] [place] [address] 98597- 6406 Dec, Severe episode of recurrent major depressive disorder, without psychotic features F33.2 [facility] [address] [place] [address] 45303- 1902 Dec, Encounter for immunization Z23 [facility] [address] [place] [address] 86031- 7391 Dec, [facility] [id number] [place] [address] 73628- 4769 Dec, Severe episode of recurrent major depressive disorder, without psychotic features F33.2 ; PTSD (post-traumatic stress disorder) F43.10 ; Panic disorder F41.0 and BMI 40.0-44.9, adult Z68.41 [facility] [address], [place] [address]- 4634 23 Dec, 2017 [facility] [id number] [place] [address] 17441- 1029 Dec, [facility] [address] [place] [address] 91893- 2799 Dec, Essential hypertension I10 [facility] [id number] [place] [address] 88582- 1366 14 Dec, 2017 [facility] [address] [place] [address] 09489- 3524 06 Dec, 2017 [facility] [id number] [place] [address] 98452- 8573 05 Dec, 2017 BMI 40.0-44.9, adult Z68.41 ; Severe episode of recurrent major depressive disorder, without psychotic features F33.2 ; PTSD (post- traumatic stress disorder) F43.10 and Panic disorder F41.0 [facility] [address] [place] [address] 61057- 1693 Dec, [facility] [id number] [place] [address] 93686- 5974 Dec, 2017 [facility] [address] [place] [address] 29758- 8496 Dec, Essential hypertension I10 [facility] [address] [place] [address] 45702- 2290 Dec, Severe episode of recurrent major depressive disorder, without psychotic features F33.2 [facility] [address], [place] [address]- 2491 Dec, Severe episode of recurrent major depressive disorder, without psychotic features F33.2 and Generalized anxiety disorder F41.1 [facility] [address], [place] [address]- 9971 Nov, Cervical disc disease with myelopathy M50.00 [facility] [address] [place] [address] 20007- 3974 Nov, Cervical disc disease with myelopathy M50.00 ; Moderate persistent asthma without complication J45.40 and BMI 40.0-44.9, adult Z68.41 [facility] [address] [address]- 7622 Nov, [facility] [id number] [place] [address] 38669- 8267 Nov, [facility] [id number] [place] [address] 23788- 1616 Nov, [facility] [id number] [place] [address] 32930- 1357 Nov, [facility] [id number] [place] [address] 22228- 3498 Nov, [facility] [id number] [place] [address] 38847- 6502 Nov, [facility] [id number] [place] [address] 64669- 3825 Nov, [facility] [id number] [place] [address] 70929- 9615 Nov, [facility] [address] [place] [address] 36379- 9568 Nov, [facility] [id number] [place] [address] 08810- 6473 Nov, Severe episode of recurrent major depressive disorder, without psychotic features F33.2 ; PTSD (post-traumatic stress disorder) F43.10 ; Panic disorder F41.0 and BMI 40.0-44.9, adult Z68.41 [facility] [address] [place] [address] 24078- 2685 Nov, [facility] [address] [place] [address] 07342- 4126 Nov, Essential hypertension I10 [facility] [address] [place] [address] 41110- 1555 Nov, Severe episode of recurrent major depressive disorder, without psychotic features F33.2 [facility] [id number] [place] [address] 30411- 6090 Nov, Acute pain of left knee M25.562 [facility] [id number] [place] [address] 58664- 7105 Nov, Severe episode of recurrent major depressive disorder, without psychotic features F33.2 ; PTSD (post-traumatic stress disorder) F43.10 ; Panic disorder F41.0 and BMI 40.0-44.9, adult Z68.41 [facility] [id number] [place] [address] 08531- 3231 Oct, [facility] [id number] [place] [address] 19050- 5585 Oct, [facility] [id number] [place] [address] 72796- 6024 Oct, [facility] [id number] [place] [address] 08797- 5066 Oct, [facility] [id number] [place] [address] 42988- 9528 Oct, Dorsalgia, unspecified M54.9 [facility] [id number] [place] [address] 81814- 6195 Oct, Severe episode of recurrent major depressive disorder, without psychotic features F33.2 and Generalized anxiety disorder F41.1 [facility] [id number], [place] [address]- 3354 Oct, [facility] [id number] [place] [address] 17730- 9173 Oct, [facility] [id number] [place] [address] 48914- 5725 Oct, [facility] [id number] [address]- 6233 Oct, [facility] [id number], [place] [address]- 8250 Oct, [facility] [address], [place] [address]- 7735 Oct, [facility] [id number] [place] [address] 11992- 9949 Oct, [facility] [id number] [place] [address] 61092- 1611 Oct, [facility] [id number] [place] [address] 89452- 4529 Sep, Dorsalgia, unspecified M54.9 [facility] [id number] [place] [address] 81342- 7392 Sep, [facility] [id number] [place] [address] 65098- 5857 Sep, [facility] [id number] [place] [address] 39520- 1048 Sep, Falling R29.6 ; Essential hypertension I10 ; Chronic obstructive pulmonary disease, unspecified COPD type J44.9 and BMI 40.0-44.9, adult Z68.41 [facility] [address], [place] [address]- 3808 Sep, [facility] [id number] [place] [address] 36627- 4353 Sep, [facility] [address], [place] [address]- 0268 Sep, [facility] [id number] [place] [address] 99793- 5190 Sep, Mild intermittent asthma without complication J45.20 [facility] [address], [place] [address]- 2982 Sep, [facility] [address] [address]- 1468 19 Sep, 2017 [facility] [place] [facility] [address] [id number] [place] [address]- 1770 19 Sep, 2017 [facility] [place] [facility] [address] [id number] [place] [address]- 5907 18 Sep, 2017 [facility] [place] [facility] [address] [id number] [place] [address]- 9024 18 Sep, 2017 [facility] [place] [facility] [address] [id number] [place] [address]- 4156 15 Sep, 2017 [facility] [place] [facility] [address] [id number] [place] [address]- 4178 15 Sep, 2017 Essential hypertension I10 [facility] [place] [facility] [address] [id number] [place] [address]- 4508 15 Sep, 2017 [facility] [place] [facility] [address] [id number] [place] [address]- 7111 15 Sep, 2017 [facility] [place] [facility] [address] [id number] [place] [address]- 5008 15 Sep, 2017 [facility] [place] [facility] [address] [id number] [place] [address]- 2607 14 Sep, 2017 [facility] [place] [facility] [address] [facility] [id number] [place] [address]- 9577 14 Sep, 2017 [facility] [place] [facility] [address] [id number] [place] [address]- 4745 14 Sep, 2017 [facility] [place] [facility] [address] [id number] [place] [address]- 8202 13 Sep, 2017 [facility] [place] [facility] [address] [id number] [place] [address]- 2817 13 Sep, 2017 [facility] [place] [facility] [address] [id number] [place] [address]- 8218 13 Sep, 2017 [facility] [place] [facility] [address] [id number] [place] [address]- 8457 Sep, [facility] [id number] [place] [address] 12261- 4728 Sep, Mild intermittent asthma without complication J45.20 [facility] [id number] [place] [address] 89577- 4929 August, Essential hypertension I10 [facility] [id number] [place] [address] 29231- 6114 August, BMI 40.0-44.9, adult Z68.41 ; Dorsalgia, unspecified M54.9 ; Allergic state, initial encounter T78.40XA ; Mild intermittent asthma without complication J45.20 and 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 [facility] [id number] [place] [address] 55726- 1128 August, [facility] [id number] [place] [address] 80792- 4184 August, [facility] [id number] [place] [address] 18322- 1055 August, [facility] [id number] [place] [address] 92167- 1387 August, Reactive depression F32.9 [facility] [id number] [place] [address] 09044- 4954 August, [facility] [id number] [place] [address] 17220- 2800 August, [facility] [id number] [place] [address] 07724- 2952 August, [facility] [id number] [place] [address] 50873- 4488 August, [facility] [id number] [place] [address] 35178- 4696 August, [facility] [id number] [place] [address] 09194- 5343 August, [facility] [address] [place] [address] 38547- 3873 August, [facility] [id number] [place] [address] 12160- 1989 August, Muscle spasms of both lower extremities M62.838 ; Essential hypertension I10 and Reactive depression F32.9 [facility] [id number] [place] [address] 98675- 4398 August, [facility] [id number] [place] [address] 05084- 9365 Jul, [facility] [id number] [place] [address] 56583- 6288 Jul, [facility] [id number] [place] [address] 00337- 4556 Jul, [facility] [id number] [place] [address] 04314- 3217 Jul, [facility] [id number] [place] [address] 42041- 5510 Jul, [facility] [id number] [place] [address] 47398- 9432 Jul, [facility] [id number] [place] [address] 76873- 3495 Jul, [facility] [id number] [place] [address] 58082- 4491 Jul, [facility] [address] [place] [address] 11692- 3697 Jul, Essential hypertension I10 ; Other chronic pain G89.29 ; Dorsalgia, unspecified M54.9 ; Reactive depression F32.9 ; Mild intermittent asthma without complication J45.20 ; Allergic state, initial encounter T78.40XA and Muscle spasms of both lower extremities M62.838 IMMUNIZATIONS No Known Immunizations SOCIAL HISTORY Never Assessed REASON FOR VISIT Sleep study PLAN OF CARE VITAL SIGNS MEDICATIONS Unknown [...]
--- OUTSIDE RECORDS SUMMARY | 2018-04-06 07:52 | XMS REPORT ---
Author Author ROSALINA GRAHAM Organization [facility] Address [address] [place] [address] Care Team Providers Care Sandstone Splitter Name Role Phone ROSALINA GRAHAM Unavailable PROBLEMS Type Condition ICD9-CM Code TXM29-OC Code Onset Dates Condition Status SNOMED Code Problem Severe episode of recurrent major depressive disorder, without psychotic features F33.2 Active 39319318 Problem Falling R29.6 Active 397392267 Problem Generalized anxiety disorder F41.1 Active 20551061 Problem Degenerative arthritis M19.90 Active 488670398 Problem Environmental allergies Z91.09 Active 404272944 Problem Panic disorder F41.0 Active 532487271 Problem PTSD (post-traumatic stress disorder) F43.10 Active 14832277 Problem Moderate persistent asthma without complication J45.40 Active 182223421 Problem Cervical disc disease with myelopathy M50.00 Active 26393453 Problem Dorsalgia, unspecified M54.9 Active 093274134 Problem Other chronic pain G89.29 Active 15453673 Problem Allergic state, initial encounter T78.40XA Active 600317375 Problem Muscle spasms of both lower extremities M62.838 Active 004016041 Problem Essential hypertension I10 Active 66225409 Problem Reactive depression F32.9 Active 99672532 ALLERGIES No Information ENCOUNTERS Encounter Location Date Diagnosis [facility] [id number] [address] Mar, [facility] [id number], [place] [address] Mar, [facility] [address], [place] [address] Feb, [facility] [id number] [address] 7311 Feb, [facility] [id number] [place] [address] 62601- 1157 16 Feb, 2018 [facility] [id number] [place] [address] 91153- 1319 Feb, Degenerative arthritis M19.90 [facility] [id number] [place] [address] 75152- 4525 15 Feb, 2018 [facility] [id number] [place] [address] 33906- 9789 Feb, [facility] [id number] [place] [address] 53871- 5626 Feb, [facility] [address] [address] Feb, [facility] [id number] [place] [address] 69887- 7245 Feb, Severe episode of recurrent major depressive disorder, without psychotic features F33.2 [facility] [id number] [place] [address] 36312- 3580 Feb, Arthritis M19.90 and BMI 40.0-44.9, adult Z68.41 [facility] [id number] [place] [address] 38429- 2353 Feb, [facility] [id number] [place] [address] 68155- 5225 Feb, [facility] [id number] [place] [address] 21863- 6187 Feb, [facility] [id number] [place] [address] 43883- 3460 Feb, [facility] [id number] [place] [address] 16212- 2765 Feb, Essential hypertension I10 [facility] [id number] [place] [address] 66854- 3486 Jan, Severe episode of recurrent major depressive disorder, without psychotic features F33.2 [facility] [address], [place] [address] 8[address] Jan, [facility] [address], [place] [address] 8[address] Jan, Environmental allergies Z91.09 [facility] [address], [place] [address] 30[address] Jan, [facility] [id number] [place] [address] 04213- 0702 Jan, [facility] [address], [place] [address] 4572 Jan, [facility] [id number] [place] [address] 81016- 9254 Jan, [facility] [address] [place] [address] 52366- 8749 Jan, [facility] [address] [place] [address] 85321- 6085 Jan, Cervical disc disease with myelopathy M50.00 [facility] [address] [place] [address] 96044- 0991 Jan, Severe episode of recurrent major depressive disorder, without psychotic features F33.2 ; Panic disorder F41.0 ; PTSD (post-traumatic stress disorder) F43.10 and BMI 40.0-44.9, adult Z68.41 [facility] [address], [place] [address] 49[address] Jan, Severe episode of recurrent major depressive disorder, without psychotic features F33.2 and Generalized anxiety disorder F41.1 [facility] [address], [place] [address] 8071 Jan, [facility] [address], [place] [address] 6839 Jan, Cervical disc disease with myelopathy M50.00 [facility] [id number] [place] [address] 99614- 0768 Jan, [facility] [address], [place] [address] 4328 Jan, [facility] [id number] [place] [address] 01582- 4456 Jan, [facility] [id number] [place] [address] 81350- 7403 Jan, [facility] [id number] [place] [address] 53908- 3733 Jan, [facility] [id number] [place] [address] 24301- 1464 Jan, Environmental allergies Z91.09 and BMI 40.0-44.9, adult Z68.41 [facility] [id number] [place] [address] 81636- 5580 Jan, [facility] [id number] [place] [address] 07594- 1963 Jan, [facility] [id number] [place] [address] 67969- 2275 Jan, Severe episode of recurrent major depressive disorder, without psychotic features F33.2 [facility] [address] [place] [address] 46635- 0526 Dec, Severe episode of recurrent major depressive disorder, without psychotic features F33.2 [facility] [address] [place] [address] 44802- 9776 Dec, Encounter for immunization Z23 [facility] [address] [place] [address] 46909- 8500 Dec, [facility] [id number] [place] [address] 96216- 8046 Dec, Severe episode of recurrent major depressive disorder, without psychotic features F33.2 ; PTSD (post-traumatic stress disorder) F43.10 ; Panic disorder F41.0 and BMI 40.0-44.9, adult Z68.41 [facility] [address], [place] [address]- 8374 23 Dec, 2017 [facility] [id number] [place] [address] 02754- 5359 Dec, [facility] [address] [place] [address] 62467- 8402 Dec, Essential hypertension I10 [facility] [id number] [place] [address] 38025- 8283 14 Dec, 2017 [facility] [address] [place] [address] 73607- 9548 06 Dec, 2017 [facility] [id number] [place] [address] 98619- 6389 05 Dec, 2017 BMI 40.0-44.9, adult Z68.41 ; Severe episode of recurrent major depressive disorder, without psychotic features F33.2 ; PTSD (post- traumatic stress disorder) F43.10 and Panic disorder F41.0 [facility] [address] [place] [address] 99643- 0135 Dec, [facility] [id number] [place] [address] 80359- 2212 Dec, 2017 [facility] [address] [place] [address] 31741- 2361 Dec, Essential hypertension I10 [facility] [address] [place] [address] 59795- 1335 Dec, Severe episode of recurrent major depressive disorder, without psychotic features F33.2 [facility] [address], [place] [address]- 3341 Dec, Severe episode of recurrent major depressive disorder, without psychotic features F33.2 and Generalized anxiety disorder F41.1 [facility] [address], [place] [address]- 4111 Nov, Cervical disc disease with myelopathy M50.00 [facility] [address] [place] [address] 82832- 2416 Nov, Cervical disc disease with myelopathy M50.00 ; Moderate persistent asthma without complication J45.40 and BMI 40.0-44.9, adult Z68.41 [facility] [id number] [place] [address] 9838 Nov, [facility] [id number] [place] [address] 21554- 3583 Nov, [facility] [id number] [place] [address] 87964- 8444 Nov, [facility] [id number] [place] [address] 01040- 3582 Nov, [facility] [id number] [place] [address] 90705- 5405 Nov, [facility] [id number] [place] [address] 82337- 6032 Nov, [facility] [id number] [place] [address] 28226- 4030 Nov, [facility] [id number] [place] [address] 30006- 7775 Nov, [facility] [address] [place] [address] 28808- 8085 Nov, [facility] [id number] [place] [address] 29975- 2628 Nov, Severe episode of recurrent major depressive disorder, without psychotic features F33.2 ; PTSD (post-traumatic stress disorder) F43.10 ; Panic disorder F41.0 and BMI 40.0-44.9, adult Z68.41 [facility] [address] [place] [address] 12010- 1643 Nov, [facility] [address] [place] [address] 52104- 3331 Nov, Essential hypertension I10 [facility] [address] [place] [address] 05712- 5273 Nov, Severe episode of recurrent major depressive disorder, without psychotic features F33.2 [facility] [id number] [place] [address] 07123- 3693 Nov, Acute pain of left knee M25.562 [facility] [id number] [place] [address] 73110- 3310 Nov, Severe episode of recurrent major depressive disorder, without psychotic features F33.2 ; PTSD (post-traumatic stress disorder) F43.10 ; Panic disorder F41.0 and BMI 40.0-44.9, adult Z68.41 [facility] [id number] [place] [address] 82692- 8184 Oct, [facility] [id number] [place] [address] 50903- 0792 Oct, [facility] [id number] [place] [address] 20994- 2533 Oct, [facility] [id number] [place] [address] 62283- 0688 Oct, [facility] [id number] [place] [address] 09172- 7449 Oct, Dorsalgia, unspecified M54.9 [facility] [id number] [place] [address] 25313- 1418 Oct, Severe episode of recurrent major depressive disorder, without psychotic features F33.2 and Generalized anxiety disorder F41.1 [facility] [id number] [place] [address]- 4507 Oct, [facility] [id number] [place] [address] 34350- 2613 Oct, [facility] [id number] [place] [address] 80772- 5479 Oct, [facility] [id number] [place] [address]- 6455 Oct, [facility] [id number] [place] [address]- 0114 Oct, [facility] [address], [place] [address]- 5229 Oct, [facility] [id number] [place] [address] 66286- 7598 Oct, [facility] [id number] [place] [address] 24855- 8739 Oct, [facility] [id number] [place] [address] 36609- 7940 Sep, Dorsalgia, unspecified M54.9 [facility] [id number] [place] [address] 87107- 8272 Sep, [facility] [id number] [place] [address] 90235- 1467 Sep, [facility] [id number] [place] [address] 25504- 9059 Sep, Falling R29.6 ; Essential hypertension I10 ; Chronic obstructive pulmonary disease, unspecified COPD type J44.9 and BMI 40.0-44.9, adult Z68.41 [facility] [address], [place] [address]- 3322 Sep, [facility] [id number] [place] [address] 18685- 7300 Sep, [facility] [address], [place] [address]- 0406 Sep, [facility] [id number] [place] [address] 09560- 8795 Sep, Mild intermittent asthma without complication J45.20 [facility] [address], [place] [address]- 7328 Sep, [facility] [address] [place] [address]- 6731 19 Sep, 2017 [facility] [place] [facility] [address] [id number] [place] [address]- 2332 19 Sep, 2017 [facility] [place] [facility] [address] [id number] [place] [address]- 5349 18 Sep, 2017 [facility] [place] [facility] [address] [id number] [place] [address]- 1849 18 Sep, 2017 [facility] [place] [facility] [address] [id number] [place] [address]- 3327 15 Sep, 2017 [facility] [place] [facility] [address] [id number] [place] [address]- 5853 15 Sep, 2017 Essential hypertension I10 [facility] [place] [facility] [address] [id number] [place] [address]- 5441 15 Sep, 2017 [facility] [place] [facility] [address] [id number] [place] [address]- 7393 15 Sep, 2017 [facility] [place] [facility] [address] [id number] [place] [address]- 4725 15 Sep, 2017 [facility] [place] [facility] [address] [id number] [place] [address]- 5673 14 Sep, 2017 [facility] [place] [facility] [address] [facility] [id number] [place] [address]- 1960 14 Sep, 2017 [facility] [place] [facility] [address] [id number] [place] [address]- 1500 14 Sep, 2017 [facility] [place] [facility] [address] [id number] [place] [address]- 5437 13 Sep, 2017 [facility] [place] [facility] [address] [id number] [place] [address]- 2452 13 Sep, 2017 [facility] [place] [facility] [address] [id number] [place] [address]- 9728 13 Sep, 2017 [facility] [place] [facility] [address] [id number] [place] [address]- 8728 Sep, [facility] [id number] [place] [address] 81356- 0344 Sep, Mild intermittent asthma without complication J45.20 [facility] [id number] [place] [address] 33102- 3504 August, Essential hypertension I10 [facility] [id number] [place] [address] 02857- 6989 August, BMI 40.0-44.9, adult Z68.41 ; Dorsalgia, unspecified M54.9 ; Allergic state, initial encounter T78.40XA ; Mild intermittent asthma without complication J45.20 and 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 [facility] [id number] [place] [address] 59247- 8282 August, [facility] [id number] [place] [address] 74952- 0759 August, [facility] [id number] [place] [address] 71741- 1746 August, [facility] [id number] [place] [address] 25944- 8816 August, Reactive depression F32.9 [facility] [id number] [place] [address] 74031- 8332 August, [facility] [id number] [place] [address] 43098- 9454 August, [facility] [id number] [place] [address] 49555- 2648 August, [facility] [id number] [place] [address] 53160- 2843 August, [facility] [id number] [place] [address] 64886- 2075 August, [facility] [id number] [place] [address] 57438- 9841 August, [facility] [address] [place] [address] 08523- 5278 August, [facility] [id number] [place] [address] 71976- 9768 August, Muscle spasms of both lower extremities M62.838 ; Essential hypertension I10 and Reactive depression F32.9 [facility] [id number] [place] [address] 09351- 0117 August, [facility] [id number] [place] [address] 87336- 9447 Jul, [facility] [id number] [place] [address] 69793- 7536 Jul, [facility] [id number] [place] [address] 88756- 5024 Jul, [facility] [id number] [place] [address] 03641- 5615 Jul, [facility] [id number] [place] [address] 07831- 4174 Jul, [facility] [id number] [place] [address] 66538- 8815 Jul, [facility] [address] [place] [address] 70302- 2369 Jul, [facility] [id number] [place] [address] 35990- 5291 Jul, [facility] [address] [place] [address] 63271- 3162 Jul, Essential hypertension I10 ; Other chronic pain G89.29 ; Dorsalgia, unspecified M54.9 ; Reactive depression F32.9 ; Mild intermittent asthma without complication J45.20 ; Allergic state, initial encounter T78.40XA and Muscle spasms of both lower extremities M62.838 IMMUNIZATIONS No Known Immunizations SOCIAL HISTORY Never Assessed REASON FOR VISIT degenerative arthritis PLAN OF CARE VITAL SIGNS MEDICATIONS Unknown [...]
--- OUTSIDE RECORDS SUMMARY | 2018-04-06 07:53 | XMS REPORT ---
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 Name Role Phone ROSALINA GRAHAM Unavailable PROBLEMS Type Condition ICD9-CM Code IPA27-QV Code Onset Dates Condition Status SNOMED Code Problem Generalized anxiety disorder F41.1 Active 09378631 Problem Falling R29.6 Active 941709255 Problem Severe episode of recurrent major depressive disorder, without psychotic features F33.2 Active 73240052 Problem Arthritis M19.90 Active 8049658 Problem Environmental allergies Z91.09 Active 202222652 Problem Panic disorder F41.0 Active 654513436 Problem PTSD (post-traumatic stress disorder) F43.10 Active 72211045 Problem Moderate persistent asthma without complication J45.40 Active 842525769 Problem Cervical disc disease with myelopathy M50.00 Active 38719535 Problem Muscle spasms of both lower extremities M62.838 Active 028547171 Problem Essential hypertension I10 Active 20830985 Problem Allergic state, initial encounter T78.40XA Active 252285794 Problem Dorsalgia, unspecified M54.9 Active 620060793 Problem Reactive depression F32.9 Active 47304976 Problem Other chronic pain G89.29 Active 32589171 ALLERGIES No Information ENCOUNTERS Encounter Location Date Diagnosis [facility] [id number] [address] Mar, [facility] [address], [place] [address] 6[address] Mar, [facility] [address], [place] [address] 8[address] Feb, [facility] [id number] [address] 6[address] Feb, [facility] [id number] [place] [address] 34138- 7609 15 Feb, 2018 [facility] [id number] [place] [address] 77523- 8443 Feb, [facility] [id number] [place] [address] 39788- 8586 Feb, [facility] [id number] [place] [address] 33859- 2060 Feb, Severe episode of recurrent major depressive disorder, without psychotic features F33.2 [facility] [address] [address]- [address] Feb, Arthritis M19.90 and BMI 40.0-44.9, adult Z68.41 [facility] [address] [address]- 69[address] Feb, [facility] [address] [address]- 8038 Feb, [facility] [id number] [place] [address] 58406- 1703 Feb, [facility] [address] 608[address]- 7191 Feb, [facility] [id number] [place] [address] 07827- 5337 Feb, Essential hypertension I10 [facility] [id number] [place] [address] 61425- 1682 Jan, Severe episode of recurrent major depressive disorder, without psychotic features F33.2 [facility] [id number] [place] [address] 80007- 2837 Jan, [facility] [address] 11713- 9401 Jan, Environmental allergies Z91.09 [facility] [id number] [place] [address] 32531- 9456 Jan, [facility] [address], [place] [address] 5170 Jan, [facility] [id number] [address] 2498 Jan, [facility] [address] [address] 0927 Jan, [facility] [id number] [place] [address] 40899- 7780 Jan, [facility] [id number] [place] [address] 96021- 4324 Jan, Cervical disc disease with myelopathy M50.00 [facility] [id number] [place] [address] 86928- 8061 Jan, Severe episode of recurrent major depressive disorder, without psychotic features F33.2 ; Panic disorder F41.0 ; PTSD (post-traumatic stress disorder) F43.10 and BMI 40.0-44.9, adult Z68.41 [facility] [address], [place] [address] 4131 Jan, Severe episode of recurrent major depressive disorder, without psychotic features F33.2 and Generalized anxiety disorder F41.1 [facility] [address], [place] [address] 1317 Jan, [facility] [address], [place] [address] 7254 Jan, Cervical disc disease with myelopathy M50.00 [facility] [address], [place] [address] 3918 Jan, [facility] [id number] [place] [address] 10477- 5011 Jan, [facility] [address], [place] [address]- 2810 Jan, [facility] [id number] [place] [address] 63679- 0023 Jan, [facility] [id number] [place] [address] 48405- 7892 Jan, [facility] [address] 74699- 0911 Jan, Environmental allergies Z91.09 and BMI 40.0-44.9, adult Z68.41 [address] 55935- 2581 Jan, [facility] [address] 19493- 1749 Jan, [facility] [address] 18519- 2766 Jan, Severe episode of recurrent major depressive disorder, without psychotic features F33.2 [address] [facility] [id number] [place] [address] 46669- 4685 Dec, Severe episode of recurrent major depressive disorder, without psychotic features F33.2 [facility] [id number] [place] [address] 99656- 9292 27 Dec, 2017 Encounter for immunization Z23 [facility] [id number] [place] [address] 33450- 6497 Dec, [facility] [id number] [place] [address] 89950- 9727 24 Dec, 2017 Severe episode of recurrent major depressive disorder, without psychotic features F33.2 ; PTSD (post-traumatic stress disorder) F43.10 ; Panic disorder F41.0 and BMI 40.0-44.9, adult Z68.41 [facility] [id number] [place] [address] 79357- 0592 Dec, [facility] [id number] [place] [address] 94340- 7515 Dec, [facility] [id number] [place] [address] 17779- 4322 Dec, Essential hypertension I10 [address], [place] [address] 3227 14 Dec, 2017 [facility] [id number] [place] [address] 83313- 4512 Dec, [facility] [id number] [place] [address] 42561- 7426 Dec, BMI 40.0-44.9, adult Z68.41 ; Severe episode of recurrent major depressive disorder, without psychotic features F33.2 ; PTSD (post- traumatic stress disorder) F43.10 and Panic disorder F41.0 [facility] [id number] [place] [address] 20092- 0655 Dec, [facility] [id number] [place] [address] 56498- 9902 Dec, [facility] [id number] [place] [address] 80671- 2683 Dec, Essential hypertension I10 [facility] [id number] [place] [address] 26794- 6813 Dec, Severe episode of recurrent major depressive disorder, without psychotic features F33.2 [address] [facility] [id number] [place] [address] 18837- 3210 Dec, Severe episode of recurrent major depressive disorder, without psychotic features F33.2 and Generalized anxiety disorder F41.1 [address] [facility] [id number] [place] [address] 88773- 6992 Nov, Cervical disc disease with myelopathy M50.00 [facility] [address] [place] [address] 42071- 9932 Nov, Cervical disc disease with myelopathy M50.00 ; Moderate persistent asthma without complication J45.40 and BMI 40.0-44.9, adult Z68.41 [facility] [address] [place] [address] 14640- 5663 Nov, [facility] [address], [place] [address]- 5158 Nov, [facility] [address], [place] [address]- 8735 Nov, [facility] [address], [place] [address]- 8039 Nov, [facility] [id number] [place] [address] 51382- 6366 Nov, [facility] [id number] [place] [address] 32332- 5632 Nov, [facility] [id number] [place] [address] 77295- 5007 Nov, [facility] [id number] [place] [address] 97283- 9305 Nov, [facility] [id number] [place] [address] 36729- 6394 Nov, [facility] [address] [place] [address] 46599- 1936 Nov, Severe episode of recurrent major depressive disorder, without psychotic features F33.2 ; PTSD (post-traumatic stress disorder) F43.10 ; Panic disorder F41.0 and BMI 40.0-44.9, adult Z68.41 [facility] [address], [place] [address]- 1561 Nov, [facility] [id number] [place] [address] 49175- 7592 Nov, Essential hypertension I10 [facility] [address], [place] [address]- 1076 Nov, Severe episode of recurrent major depressive disorder, without psychotic features F33.2 [facility] [address], [place] [address]- 3672 Nov, Acute pain of left knee M25.562 [facility] [id number] [place] [address] 76055- 3479 Nov, Severe episode of recurrent major depressive disorder, without psychotic features F33.2 ; PTSD (post-traumatic stress disorder) F43.10 ; Panic disorder F41.0 and BMI 40.0-44.9, adult Z68.41 [facility] [id number] [place] [address] 75198- 3885 Oct, [facility] [id number] [place] [address] 53292- 7908 Oct, [facility] [id number] [place] [address] 18451- 3866 Oct, [facility] [id number] [place] [address] 95371- 7858 Oct, [facility] [id number] [place] [address] 68145- 9071 Oct, Dorsalgia, unspecified M54.9 [facility] [id number] [place] [address] 48989- 9589 Oct, Severe episode of recurrent major depressive disorder, without psychotic features F33.2 and Generalized anxiety disorder F41.1 [facility] [id number] [place] [address] 97026- 0259 Oct, [facility] [id number] [place] [address] 01732- 2746 Oct, [facility] [id number] [place] [address] 62639- 9592 Oct, [facility] [id number] [place] [address] 00295- 3346 Oct, [facility] [id number] [place] [address] 89112- 0400 Oct, [facility] [id number] [place] [address] 19161- 4097 Oct, [facility] [id number] [place] [address] 87499- 0623 Oct, [facility] [id number] [place] [address] 03945- 0836 Oct, [facility] [id number] [place] [address] 29642- 8772 Sep, Dorsalgia, unspecified M54.9 [facility] [id number] [place] [address] 36515- 5362 Sep, [facility] [id number] [place] [address] 31981- 5407 Sep, [facility] [id number] [place] [address] 36416- 8527 Sep, Falling R29.6 ; Essential hypertension I10 ; Chronic obstructive pulmonary disease, unspecified COPD type J44.9 and BMI 40.0-44.9, adult Z68.41 [facility] [id number] [place] [address] 54642- 5368 Sep, [facility] [id number] [place] [address] 10544- 0507 Sep, [facility] [id number] [place] [address] 00652- 9632 Sep, [facility] [id number] [place] [address] 92733- 8917 Sep, Mild intermittent asthma without complication J45.20 [facility] [id number] [place] [address] 72274- 1693 Sep, [facility] [id number] [place] [address] 21152- 1257 Sep, [facility] [id number] [place] [address] 67746- 5373 Sep, [facility] [id number] [place] [address] 62976- 3684 Sep, [facility] [id number] [place] [address] 06324- 4947 18 Sep, 2017 [facility] [address] [place] [address] 77783- 5349 15 Sep, 2017 [facility] [address], [place] [address]- 8336 15 Sep, 2017 Essential hypertension I10 [facility] [address] [place] [address] 08578- 4985 15 Sep, 2017 [facility] [address] [place] [address] 29741- 0103 15 Sep, 2017 [facility] [address] [place] [address] 58587- 7824 15 Sep, 2017 [facility] [address] [place] [address] 50833- 1494 14 Sep, 2017 [facility] [address] [place] [address] 78893- 4874 14 Sep, 2017 [facility] [address] [address]- 4093 14 Sep, 2017 [facility] [address] [place] [address] 53011- 4016 13 Sep, 2017 [facility] [address], [place] [address]- 2831 13 Sep, 2017 [facility] [address], [place] [address]- 3694 13 Sep, 2017 [facility] [address], [place] [address]- 4243 12 Sep, 2017 [facility] [address] [place] [address] 70825- 7915 05 Sep, 2017 Mild intermittent asthma without complication J45.20 [facility] [address], [place] [address]- 9806 August, Essential hypertension I10 [facility] [address] [place] [address] 95298- 8170 August, BMI 40.0-44.9, adult Z68.41 ; Dorsalgia, unspecified M54.9 ; Allergic state, initial encounter T78.40XA ; Mild intermittent asthma without complication J45.20 and 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 [facility] [id number] [place] [address] 49117- 0917 August, [facility] [id number] [place] [address] 05229- 0611 August, [facility] [id number] [place] [address] 12756- 2311 August, [facility] [id number] [place] [address] 83460- 8578 August, Reactive depression F32.9 [facility] [id number] [place] [address] 91670- 4981 August, [facility] [id number] [place] [address] 13833- 0341 August, [facility] [id number] [place] [address] 19963- 9006 August, [facility] [id number] [place] [address] 86363- 2852 August, [facility] [id number] [place] [address] 08208- 3475 August, [facility] [id number] [place] [address] 90362- 3563 August, [facility] [id number] [place] [address] 39832- 9965 August, [facility] [id number] [place] [address] 33380- 9764 August, Muscle spasms of both lower extremities M62.838 ; Essential hypertension I10 and Reactive depression F32.9 [facility] [id number] [place] [address] 96558- 2297 August, [facility] [address], [place] [address]- 5899 Jul, [facility] [address] 9707 Jul, [facility] [address], [place] [address]- 2529 Jul, [facility] [address], [place] [address]- 6821 Jul, [facility] [address] [address]- 6126 Jul, [facility] [address] [place] [address] 11926- 0685 Jul, [facility] [address] [address]- 6153 Jul, [facility] [address] [address]- 3232 Jul, [facility] [address], [place] [address]- 3913 Jul, Essential hypertension I10 ; Other chronic pain G89.29 ; Dorsalgia, unspecified M54.9 ; Reactive depression F32.9 ; Mild intermittent asthma without complication J45.20 ; Allergic state, initial encounter T78.40XA and Muscle spasms of both lower extremities M62.838 IMMUNIZATIONS No Known Immunizations SOCIAL HISTORY Never Assessed REASON FOR VISIT Re:Medication Sent PLAN OF CARE VITAL SIGNS MEDICATIONS [...]
--- OUTSIDE RECORDS SUMMARY | 2018-04-06 07:53 | XMS REPORT ---
Author Author ROSALINA GRAHAM [facility] Address [address] [place] [address] Care Team Providers Care Payroll Machine Operator Name Role Phone ROSALINA GRAHAM Unavailable PROBLEMS Type Condition ICD9-CM Code DPY84-GR Code Onset Dates Condition Status SNOMED Code Problem Generalized anxiety disorder F41.1 Active 06616865 Problem Falling R29.6 Active 056789268 Problem Severe episode of recurrent major depressive disorder, without psychotic features F33.2 Active 63485637 Problem Arthritis M19.90 Active 1825184 Problem Environmental allergies Z91.09 Active 166035226 Problem Panic disorder F41.0 Active 133627460 Problem PTSD (post-traumatic stress disorder) F43.10 Active 54011544 Problem Moderate persistent asthma without complication J45.40 Active 191003720 Problem Cervical disc disease with myelopathy M50.00 Active 54098015 Problem Muscle spasms of both lower extremities M62.838 Active 323935116 Problem Essential hypertension I10 Active 76538292 Problem Allergic state, initial encounter T78.40XA Active 748649369 Problem Dorsalgia, unspecified M54.9 Active 533313888 Problem Reactive depression F32.9 Active 82926327 Problem Other chronic pain G89.29 Active 92517887 ALLERGIES No Information ENCOUNTERS Encounter Location Date Diagnosis [facility] [id number] [address] Mar, [facility] [address] [address] 47[address] Mar, [facility] [address], [place] [address] 39[address] Feb, [facility] [id number], [place] [address] 05[address] Feb, [facility] [id number] [place] [address] 44158- 6507 15 Feb, 2018 [facility] [id number] [place] [address] 64602- 6572 Feb, [facility] [id number] [place] [address] 23711- 3526 Feb, [facility] [id number] [place] [address] 12383- 4280 Feb, Severe episode of recurrent major depressive disorder, without psychotic features F33.2 [facility] [address] [address] Feb, Arthritis M19.90 and BMI 40.0-44.9, adult Z68.41 [facility] [address] [address]- 95[address] Feb, [facility] [address] [address]- 6244 Feb, [facility] [id number] [place] [address] 28450- 3437 Feb, [facility] [address] 75111- 9450 Feb, [facility] [id number] [place] [address] 12753- 8554 Feb, Essential hypertension I10 [facility] [id number] [place] [address] 73738- 9467 Jan, Severe episode of recurrent major depressive disorder, without psychotic features F33.2 [facility] [id number] [place] [address] 29936- 7499 Jan, [facility] [address] 8[address]- 2457 Jan, Environmental allergies Z91.09 [facility] [id number] [place] [address] 44376- 1581 Jan, [facility] [id number], [place] [address] Jan, [facility] [id number], [place] [address] 3[address] Jan, [facility] [id number], [place] [address] 53[address] Jan, [facility] [id number] [place] [address] 60809- 7844 Jan, [facility] [id number] [place] [address] 79020- 3030 Jan, Cervical disc disease with myelopathy M50.00 [facility] [id number] [place] [address] 43285- 2804 Jan, Severe episode of recurrent major depressive disorder, without psychotic features F33.2 ; Panic disorder F41.0 ; PTSD (post-traumatic stress disorder) F43.10 and BMI 40.0-44.9, adult Z68.41 [facility] [address], [place] [address] 5171 Jan, Severe episode of recurrent major depressive disorder, without psychotic features F33.2 and Generalized anxiety disorder F41.1 [facility] [id number], [place] [address] 6304 Jan, [facility] [id number], [place] [address] 1063 Jan, Cervical disc disease with myelopathy M50.00 [facility] [id number], [place] [address] 9906 Jan, [facility] [id number] [place] [address] 52137- 2861 Jan, [facility] [id number], [place] [address]- 7292 Jan, [facility] [id number] [place] [address] 84899- 3269 Jan, [facility] [id number] [place] [address] 53152- 2806 Jan, [facility] [address] 27910- 4122 Jan, Environmental allergies Z91.09 and BMI 40.0-44.9, adult Z68.41 [place] [address] [address]- 0292 Jan, [facility] [address] 38957- 2974 Jan, [facility] [address] 24870- 3908 Jan, Severe episode of recurrent major depressive disorder, without psychotic features F33.2 [place] [facility] [id number] [place] [address] 14489- 3807 Dec, Severe episode of recurrent major depressive disorder, without psychotic features F33.2 [facility] [id number] [place] [address] 71520- 5433 27 Dec, 2017 Encounter for immunization Z23 [facility] [id number] [place] [address] 50890- 1297 Dec, [facility] [id number] [place] [address] 04557- 9743 24 Dec, 2017 Severe episode of recurrent major depressive disorder, without psychotic features F33.2 ; PTSD (post-traumatic stress disorder) F43.10 ; Panic disorder F41.0 and BMI 40.0-44.9, adult Z68.41 [facility] [id number] [place] [address] 77133- 2868 Dec, [facility] [id number] [place] [address] 61964- 4745 Dec, [facility] [id number] [place] [address] 53583- 5491 Dec, Essential hypertension I10 [place] [id number], [place] [address]- 8965 14 Dec, 2017 [facility] [id number] [place] [address] 48779- 6686 Dec, [facility] [id number] [place] [address] 82587- 8666 Dec, BMI 40.0-44.9, adult Z68.41 ; Severe episode of recurrent major depressive disorder, without psychotic features F33.2 ; PTSD (post- traumatic stress disorder) F43.10 and Panic disorder F41.0 [facility] [id number] [place] [address] 51518- 1851 Dec, [facility] [id number] [place] [address] 87264- 9428 Dec, [facility] [id number] [place] [address] 38030- 1460 Dec, Essential hypertension I10 [facility] [id number] [place] [address] 74551- 3658 Dec, Severe episode of recurrent major depressive disorder, without psychotic features F33.2 [place] [facility] [id number] [place] [address] 49055- 8020 Dec, Severe episode of recurrent major depressive disorder, without psychotic features F33.2 and Generalized anxiety disorder F41.1 [place] [facility] [id number] [place] [address] 78073- 6080 Nov, Cervical disc disease with myelopathy M50.00 [facility] [id number] [place] [address] 79627- 0288 Nov, Cervical disc disease with myelopathy M50.00 ; Moderate persistent asthma without complication J45.40 and BMI 40.0-44.9, adult Z68.41 [facility] [id number] [place] [address] 02779- 4776 Nov, [facility] [id number], [place] [address]- 4078 Nov, [facility] [id number], [place] [address]- 5990 Nov, [facility] [id number], [place] [address]- 0706 Nov, [facility] [id number] [place] [address] 03915- 1344 Nov, [facility] [id number] [place] [address] 07914- 2800 Nov, [facility] [id number] [place] [address] 71231- 6395 Nov, [facility] [id number] [place] [address] 12496- 7399 Nov, [facility] [id number] [place] [address] 84788- 2208 Nov, [facility] [id number] [place] [address] 20972- 3034 Nov, Severe episode of recurrent major depressive disorder, without psychotic features F33.2 ; PTSD (post-traumatic stress disorder) F43.10 ; Panic disorder F41.0 and BMI 40.0-44.9, adult Z68.41 [facility] [address], [place] [address]- 0636 Nov, [facility] [id number] [place] [address] 62185- 1843 Nov, Essential hypertension I10 [facility] [id number], [place] [address]- 3627 Nov, Severe episode of recurrent major depressive disorder, without psychotic features F33.2 [facility] [id number], [place] [address]- 0311 Nov, Acute pain of left knee M25.562 [facility] [id number] [place] [address] 31687- 5996 Nov, Severe episode of recurrent major depressive disorder, without psychotic features F33.2 ; PTSD (post-traumatic stress disorder) F43.10 ; Panic disorder F41.0 and BMI 40.0-44.9, adult Z68.41 [facility] [id number] [place] [address] 24807- 6263 Oct, [facility] [id number] [place] [address] 12726- 0142 Oct, [facility] [id number] [place] [address] 99321- 8552 Oct, [facility] [id number] [place] [address] 75681- 6525 Oct, [facility] [id number] [place] [address] 48160- 8853 Oct, Dorsalgia, unspecified M54.9 [facility] [id number] [place] [address] 17736- 5034 Oct, Severe episode of recurrent major depressive disorder, without psychotic features F33.2 and Generalized anxiety disorder F41.1 [facility] [id number] [place] [address] 80689- 3098 Oct, [facility] [id number] [place] [address] 34663- 3293 Oct, [facility] [id number] [place] [address] 87315- 3112 Oct, [facility] [id number] [place] [address] 13633- 1989 Oct, [facility] [id number] [place] [address] 73505- 2769 Oct, [facility] [id number] [place] [address] 04977- 6658 Oct, [facility] [id number] [place] [address] 30670- 6506 Oct, [facility] [id number] [place] [address] 62343- 7056 Oct, [facility] [id number] [place] [address] 84160- 3647 Sep, Dorsalgia, unspecified M54.9 [facility] [id number] [place] [address] 84231- 0326 Sep, [facility] [id number] [place] [address] 55365- 4591 Sep, [facility] [id number] [place] [address] 48753- 7806 Sep, Falling R29.6 ; Essential hypertension I10 ; Chronic obstructive pulmonary disease, unspecified COPD type J44.9 and BMI 40.0-44.9, adult Z68.41 [facility] [id number] [place] [address] 26993- 2361 Sep, [facility] [id number] [place] [address] 76182- 6476 Sep, [facility] [id number] [place] [address] 98692- 4456 Sep, [facility] [id number] [place] [address] 47978- 8431 Sep, Mild intermittent asthma without complication J45.20 [facility] [id number] [place] [address] 27286- 0262 Sep, [facility] [id number] [place] [address] 00508- 9391 Sep, [facility] [id number] [place] [address] 97649- 9508 Sep, [facility] [id number] [place] [address] 51370- 8652 Sep, [facility] [id number] [place] [address] 65319- 1272 18 Sep, 2017 [facility] [id number] [place] [address] 02938- 7500 15 Sep, 2017 [facility] [address], [place] [address]- 4031 15 Sep, 2017 Essential hypertension I10 [facility] [id number] [place] [address] 39323- 7056 15 Sep, 2017 [facility] [id number] [place] [address] 68889- 4530 15 Sep, 2017 [facility] [id number] [place] [address] 61037- 4733 15 Sep, 2017 [facility] [id number] [place] [address] 38949- 2506 14 Sep, 2017 [facility] [id number] [place] [address] 34275- 4678 14 Sep, 2017 [facility] [address], [place] [address]- 8259 14 Sep, 2017 [facility] [id number] [place] [address] 15976- 3945 13 Sep, 2017 [facility] [address], [place] [address]- 1325 13 Sep, 2017 [facility] [address], [place] [address]- 6427 13 Sep, 2017 [facility] [id number] [address]- 0007 12 Sep, 2017 [facility] [id number] [place] [address] 73914- 4212 05 Sep, 2017 Mild intermittent asthma without complication J45.20 [facility] [address] [place] [address]- 1277 August, Essential hypertension I10 [facility] [id number] [place] [address] 38760- 6155 August, BMI 40.0-44.9, adult Z68.41 ; Dorsalgia, unspecified M54.9 ; Allergic state, initial encounter T78.40XA ; Mild intermittent asthma without complication J45.20 and 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 [facility] [id number] [place] [address] 21521- 5096 August, [facility] [id number] [place] [address] 53490- 3905 August, [facility] [id number] [place] [address] 43087- 6177 August, [facility] [id number] [place] [address] 29866- 8835 August, Reactive depression F32.9 [facility] [id number] [place] [address] 95081- 9588 August, [facility] [id number] [place] [address] 59962- 5450 August, [facility] [id number] [place] [address] 82594- 9314 August, [facility] [id number] [place] [address] 47610- 4577 August, [facility] [id number] [place] [address] 36531- 1126 August, [facility] [id number] [place] [address] 64666- 3845 August, [facility] [id number] [place] [address] 80980- 1234 August, [facility] [id number] [place] [address] 20348- 5450 August, Muscle spasms of both lower extremities M62.838 ; Essential hypertension I10 and Reactive depression F32.9 [facility] [id number] [place] [address] 73730164- 3001 August, [facility] [address], [place] [address]- 1916 Jul, [facility] [address] 2343 Jul, [facility] [address] [place] [address]- 3957 Jul, [facility] [address] [place] [address]- 4631 Jul, [facility] [address] [place] [address]- 4899 Jul, [facility] [address] [place] [address]- 0813 Jul, [facility] [address] [place] [address]- 5913 Jul, [facility] [id number] [place] [address]- 2610 Jul, [facility] [address] [place] [address]- 4839 Jul, Essential hypertension I10 ; Other chronic pain G89.29 ; Dorsalgia, unspecified M54.9 ; Reactive depression F32.9 ; Mild intermittent asthma without complication J45.20 ; Allergic state, initial encounter T78.40XA and Muscle spasms of both lower extremities M62.838 IMMUNIZATIONS No Known Immunizations SOCIAL HISTORY Never Assessed REASON FOR VISIT Results PLAN OF CARE VITAL SIGNS MEDICATIONS Unknown [...]
--- OUTSIDE RECORDS SUMMARY | 2018-04-06 07:53 | XMS REPORT ---
Author Author LUCI RANGEL Organization 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 Maker Name Role Phone LCUI RANGEL Unavailable PROBLEMS Type Condition ICD9-CM Code CVL47-NA Code Onset Dates Condition Status SNOMED Code Problem Generalized anxiety disorder F41.1 Active 24071259 Problem Falling R29.6 Active 275441642 Problem Severe episode of recurrent major depressive disorder, without psychotic features F33.2 Active 48088744 Problem Arthritis M19.90 Active 5849586 Problem Environmental allergies Z91.09 Active 691842235 Problem Panic disorder F41.0 Active 143536284 Problem PTSD (post-traumatic stress disorder) F43.10 Active 64793088 Problem Moderate persistent asthma without complication J45.40 Active 554841750 Problem Cervical disc disease with myelopathy M50.00 Active 94165466 Problem Muscle spasms of both lower extremities M62.838 Active 336098917 Problem Essential hypertension I10 Active 93539064 Problem Allergic state, initial encounter T78.40XA Active 962862789 Problem Dorsalgia, unspecified M54.9 Active 741511976 Problem Reactive depression F32.9 Active 76010344 Problem Other chronic pain G89.29 Active 56370978 ALLERGIES No Information ENCOUNTERS Encounter Location Date Diagnosis [facility] [id number] [address] Mar, [facility] [id number] [address] Mar, [facility] [id number] [address] Feb, [facility] [id number], [place] [address] 7[address] Feb, [facility] [id number] [place] [address] 38679- 9245 15 Feb, 2018 [facility] [id number] [place] [address] 09152- 7493 Feb, [facility] [id number] [place] [address] 76830- 5021 Feb, [facility] [id number] [place] [address] 99138- 8282 Feb, Severe episode of recurrent major depressive disorder, without psychotic features F33.2 [facility] [id number] [place] [address] 80973- 0990 Feb, Arthritis M19.90 and BMI 40.0-44.[address], [address] [facility] [id number] [place] [address] 76082- 2963 Feb, [facility] [address] [address]- 2279 Feb, [facility] [id number] [place] [address] 03302- 0919 Feb, [facility] [id number] [place] [address] 36821- 8523 Feb, [facility] [id number] [place] [address] 78299- 7879 Feb, Essential hypertension I10 [facility] [id number] [place] [address] 95978- 3364 Jan, Severe episode of recurrent major depressive disorder, without psychotic features F33.2 [facility] [id number] [place] [address] 53950- 4796 Jan, [facility] [id number] [place] [address] 40942- 5206 Jan, Environmental allergies Z91.09 [facility] [id number] [place] [address] 22315- 9343 Jan, [facility] [id number] [address] 1424 Jan, [facility] [id number] [address] 3780 Jan, [facility] [id number] [address] 1020 Jan, [facility] [id number] [place] [address] 66977- 9023 Jan, [facility] [id number] [place] [address] 06759- 5240 Jan, Cervical disc disease with myelopathy M50.00 [facility] [id number] [place] [address] 34645- 0090 Jan, Severe episode of recurrent major depressive disorder, without psychotic features F33.2 ; Panic disorder F41.0 ; PTSD (post-traumatic stress disorder) F43.10 and BMI 40.0-44.[address], [address] [facility] [id number] [address] 9085 Jan, Severe episode of recurrent major depressive disorder, without psychotic features F33.2 and Generalized anxiety disorder F41.1 [facility] [id number], [place] [address] Jan, [facility] [id number] [address]- 0245 Jan, Cervical disc disease with myelopathy M50.00 [facility] [id number], [place] [address] 2322 Jan, [facility] [id number] [address] 0041 Jan, [facility] [id number], [place] [address]- 8351 Jan, [facility] [id number] [place] [address] 83284- 7057 Jan, [facility] [id number] [place] [address] 71973- 4504 Jan, [facility] [id number] [place] [address] 09238- 4076 Jan, Environmental allergies Z91.09 and BMI 40.0-44.9, adult Z68.41 [facility] [address] 77253- 4470 Jan, [facility] [id number] [place] [address] 61997- 3841 Jan, [facility] [address] 04081- 8441 Jan, Severe episode of recurrent major depressive disorder, without psychotic features F33.2 [facility] [id number] [place] [address] 75156- 6538 Dec, Severe episode of recurrent major depressive disorder, without psychotic features F33.2 [facility] [id number] [place] [address] 18456- 3312 Dec, Encounter for immunization Z23 [facility] [id number] [place] [address] 45248- 0306 Dec, [facility] [id number] [place] [address] 99074- 0440 24 Dec, 2017 Severe episode of recurrent major depressive disorder, without psychotic features F33.2 ; PTSD (post-traumatic stress disorder) F43.10 ; Panic disorder F41.0 and BMI 40.0-44.9, adult Z68.41 [facility] [id number] [place] [address] 80610- 9401 Dec, [facility] [id number] [place] [address] 11742- 0599 Dec, [facility] [id number] [place] [address] 72858- 4155 Dec, Essential hypertension I10 [facility] [address], [place] [address]- 2972 14 Dec, 2017 [facility] [id number] [place] [address] 44023- 7395 Dec, [facility] [id number] [place] [address] 82542- 5087 Dec, BMI 40.0-44.9, adult Z68.41 ; Severe episode of recurrent major depressive disorder, without psychotic features F33.2 ; PTSD (post- traumatic stress disorder) F43.10 and Pan[address] F41.0 [facility] [id number] [place] [address] 22995- 3264 Dec, [facility] [id number] [place] [address] 21672- 6613 Dec, [facility] [id number] [place] [address] 57269- 5849 Dec, Essential hypertension I10 [facility] [id number] [place] [address] 25087- 5070 Dec, Severe episode of recurrent major depressive disorder, without psychotic features F33.2 [facility] [id number] [place] [address] 45950- 3946 Dec, Severe episode of recurrent major depressive disorder, without psychotic features F33.2 and Generalized anxiety disorder F41.1 [facility] [id number] [place] [address] 58836- 8935 Nov, Cervical disc disease with myelopathy M50.00 [facility] [id number] [place] [address] 78239- 8023 Nov, Cervical disc disease with myelopathy M50.00 ; Moderate persistent asthma without complication J45.40 and BMI 40.0-44.9, adult Z68.41 [facility] [id number] [address]- 6142 Nov, [facility] [id number] [address]- 0679 Nov, [facility] [id number], [place] [address]- 7088 Nov, [facility] [id number], [place] [address]- 9378 Nov, [facility] [id number] [place] [address] 38932- 6415 Nov, [facility] [id number] [place] [address] 11203- 6455 Nov, [facility] [id number] [place] [address] 99740- 5396 Nov, [facility] [id number] [place] [address] 82577- 1807 Nov, [facility] [id number] [place] [address] 42564- 7497 Nov, [facility] [id number] [place] [address] 66526- 9656 Nov, Severe episode of recurrent major depressive disorder, without psychotic features F33.2 ; PTSD (post-traumatic stress disorder) F43.10 ; Panic disorder F41.0 and BMI 40.0-44.9, adult Z68.41 [facility] [id number] [address]- 2910 Nov, [facility] [id number] [address]- 5864 Nov, Essential hypertension I10 [facility] [id number] [address]- 7526 Nov, Severe episode of recurrent major depressive disorder, without psychotic features F33.2 [facility] [id number] [address]- 6094 Nov, Acute pain of left knee M25.562 [facility] [id number] [place] [address] 74100- 8910 Nov, Severe episode of recurrent major depressive disorder, without psychotic features F33.2 ; PTSD (post-traumatic stress disorder) F43.10 ; Panic disorder F41.0 and BMI 40.0-44.9, adult Z68.41 [facility] [address], [place] [address]- 5714 Oct, [facility] [id number] [place] [address] 16050- 4259 Oct, [facility] [id number] [place] [address] 69421- 2719 Oct, [facility] [id number] [place] [address] 44561- 3490 Oct, [facility] [id number] [place] [address] 92611- 9634 Oct, Dorsalgia, unspecified M54.9 [facility] [id number] [place] [address] 10296- 4196 Oct, Severe episode of recurrent major depressive disorder, without psychotic features F33.2 and Generalized anxiety disorder F41.1 [facility] [id number] [place] [address] 91217- 4182 Oct, [facility] [id number], [place] [address]- 1111 Oct, [facility] [id number] [place] [address] 83831- 1910 Oct, [facility] [id number] [place] [address] 49058- 7056 Oct, [facility] [id number] [place] [address] 23113- 8674 Oct, [facility] [address], [place] [address]- 6014 Oct, [facility] [id number] [place] [address] 75739- 2859 Oct, [facility] [id number] [place] [address] 76534- 1471 Oct, [facility] [id number] [place] [address] 76186- 5611 Sep, Dorsalgia, unspecified M54.9 [facility] [id number] [place] [address] 68391- 0081 Sep, [facility] [id number] [place] [address] 75607- 8430 Sep, [facility] [id number] [place] [address] 65613- 4589 Sep, Falling R29.6 ; Essential hypertension I10 ; Chronic obstructive pulmonary disease, unspecified COPD type J44.9 and BMI 40.0-44.9, adult Z68.41 [facility] [id number] [place] [address] 98962- 4610 Sep, [facility] [id number] [place] [address] 33116- 5872 Sep, [facility] [id number] [place] [address] 03626- 1062 Sep, [facility] [id number] [place] [address] 19512- 2462 Sep, Mild intermittent asthma without complication J45.20 [facility] [id number] [place] [address] 02283- 5328 Sep, [facility] [id number] [place] [address] 89572- 1695 Sep, [facility] [id number] [place] [address] 95972- 8575 Sep, [facility] [id number] [place] [address] 80395- 0013 Sep, [facility] [id number] [place] [address] 43629- 9117 18 Sep, 2017 [facility] [id number] [place] [address] 08885- 3623 15 Sep, 2017 [facility] [id number] [place] [address] 88867- 6046 15 Sep, [address] [facility] [id number] [place] [address] 21512- 7369 15 Sep, 2017 [facility] [id number] [place] [address] 34979- 4876 15 Sep, 2017 [facility] [id number] [place] [address] 88480- 2778 15 Sep, 2017 [facility] [id number] [place] [address] 85472- 8712 14 Sep, 2017 [facility] [id number] [place] [address] 02786- 4029 14 Sep, 2017 [facility] [id number] [place] [address] 34166- 0104 14 Sep, 2017 [facility] [id number] [place] [address] 31294- 9316 13 Sep, 2017 [facility] [id number] [place] [address] 71420- 7391 13 Sep, 2017 [facility] [address] [place] [address] 05258- 5929 13 Sep, 2017 [facility] [address] [place] [address] 34988- 3505 12 Sep, 2017 [facility] [id number] [place] [address] 66836- 0101 05 Sep, 2017 Mild intermittent asthma without complication J45.20 [facility] [address] [place] [address] 21309- 5622 August, Essential hypertension I10 [facility] [id number] [place] [address] 63470- 8696 August, BMI 40.0-44.9, adult Z68.41 ; Dorsalgia, unspecified M54.9 ; Allergic state, initial encounter T78.40XA ; Mild intermittent asthma without complication J45.20 and 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 [facility] [id number] [place] [address] 82118- 3365 August, [facility] [address] 73864- 0147 August, [facility] [id number] [place] [address] 50924- 7281 August, [facility] [address] 64561- 9203 August, Reactive depression F32.9 [facility] [id number] [place] [address] 91628- 7983 August, [facility] [id number] [place] [address] 33041- 0598 August, [facility] [id number] [place] [address] 39458- 7720 August, [facility] [id number] [place] [address] 15170- 7324 August, [facility] [id number] [place] [address] 99100- 1487 August, [facility] [id number] [place] [address] 70483- 6129 August, [facility] [id number] [place] [address] 90498- 7496 August, [facility] [id number] [place] [address] 72745- 7910 August, Muscle spasms of both lower extremities M62.838 ; Essential hypertension I10 and Reactive depression F32.9 [facility] [id number] [place] [address] 28871- 9360 August, [facility] [address] [address]- 8705 Jul, [facility] [id number] [place] [address] 21853- 0422 Jul, [facility] [id number], [place] [address]- [address] Jul, [facility] [id number] [place] [address] 54581- 5614 Jul, [facility] [id number] [place] [address] 23764- 5135 Jul, [facility] [id number] [place] [address] 28277- 9657 Jul, [facility] [id number] [place] [address] 39535- 8692 Jul, [facility] [id number] [place] [address] 03288- 0961 Jul, [facility] [id number] [place] [address] 35603- 2032 Jul, Essential hypertension I10 ; Other chronic [...] Frequency Start Date End Date Duration Status BusPIRone HCl 10 MG Orally Three times a day 1 tablet 8h Dec, 30 days Active RESULTS No Results PROCEDURES [...]
--- OUTSIDE RECORDS SUMMARY | 2018-04-06 07:54 | XMS REPORT ---
Author Author ROSALINA GRAHAM [facility] Address [address] [place] [address] Care Team Providers Care Chemical Analyst Name Role Phone ROSALINA GRAHAM Unavailable PROBLEMS Type Condition ICD9-CM Code GRD99-QX Code Onset Dates Condition Status SNOMED Code Problem Reactive depression F32.9 Active 70699972 Problem Generalized anxiety disorder F41.1 Active 01133846 Problem Severe episode of recurrent major depressive disorder, without psychotic features F33.2 Active 04687803 Problem Environmental allergies Z91.09 Active 353372655 Problem Moderate persistent asthma without complication J45.40 Active 435614220 Problem PTSD (post-traumatic stress disorder) F43.10 Active 85273921 Problem Falling R29.6 Active 752717855 Problem Cervical disc disease with myelopathy M50.00 Active 30220257 Problem Panic disorder F41.0 Active 750726263 Problem Essential hypertension I10 Active 89124814 Problem Dorsalgia, unspecified M54.9 Active 213307269 Problem Other chronic pain G89.29 Active 06831201 Problem Allergic state, initial encounter T78.40XA Active 463971721 Problem Muscle spasms of both lower extremities M62.838 Active 491544099 ALLERGIES No Information ENCOUNTERS Encounter Location Date Diagnosis [facility] [id number] [address] Mar, [facility] [id number] [place] [address] 96736- 5780 Feb, [facility] [id number] [place] [address] 33848- 9306 Feb, [facility] [address], [place] [address] 1622 Feb, [facility] [id number] [place] [address] 87679- 8468 Feb, [facility] [address] 9833 Feb, [facility] [id number] [place] [address] 027662- 9006 Feb, [facility] [id number] [place] [address] 930395- 2260 Feb, [facility] [id number] [place] [address] 989079- 7412 Feb, Essential hypertension I10 [facility] [id number] [place] [address] 248197- 5250 Jan, Severe episode of recurrent major depressive disorder, without psychotic features F33.2 [facility] [id number] [place] [address] 77675- 2744 Jan, [facility] [id number] [place] [address] 82808- 1407 Jan, Environmental allergies Z91.09 [facility] [id number] [place] [address] 86325- 6797 Jan, [facility] [id number] [place] [address] 65206- 0135 Jan, [facility] [id number] [place] [address] 46068- 7016 Jan, [facility] [id number] [place] [address] 39410- 7866 Jan, [facility] [address], [place] [address] 6894 Jan, [facility] [id number] [place] [address] 573662- 1361 Jan, Cervical disc disease with myelopathy M50.00 [facility] [address], [place] [address] 5907 Jan, Severe episode of recurrent major depressive disorder, without psychotic features F33.2 ; Panic disorder F41.0 ; PTSD (post-traumatic stress disorder) F43.10 and BMI 40.0-44.9, adult Z68.41 [facility] [id number] [place] [address] 31181- 7859 Jan, Severe episode of recurrent major depressive disorder, without psychotic features F33.2 and Generalized anxiety disorder F41.1 [facility] [address] 59124- 4206 Jan, [facility] [id number] [place] [address] 75508- 0921 Jan, Cervical disc disease with myelopathy M50.00 [facility] [id number] [place] [address] 73053- 5713 Jan, [facility] [id number] [place] [address] 03607- 5417 Jan, [facility] [id number] [place] [address] 09482- 2494 Jan, [facility] [id number] [place] [address] 60183- 3579 Jan, [facility] [id number] [place] [address] 84125- 3892 Jan, [facility] [id number] [place] [address] 68284- 7438 Jan, Environmental allergies Z91.09 and BMI 40.0-44.9, adult Z68.41 [facility] [id number] [place] [address] 40200- 1212 Jan, [facility] [address] 69750- 8615 Jan, [facility] [id number] [place] [address] 49911- 4603 Jan, Severe episode of recurrent major depressive disorder, without psychotic features F33.2 [facility] [id number] [place] [address] 39714- 6632 27 Dec, 2017 Severe episode of recurrent major depressive disorder, without psychotic features F33.2 [facility] [id number] [place] [address] 02021- 6354 Dec, Encounter for immunization Z23 [facility] [id number] [place] [address] 36017- 3024 Dec, [facility] [address] 53874- 6319 24 Dec, 2017 Severe episode of recurrent major depressive disorder, without psychotic features F33.2 ; PTSD (post-traumatic stress disorder) F43.10 ; Panic disorder F41.0 and BMI 40.0-44.9, adult Z68.41 [facility] [id number] [place] [address] 35639- 2055 Dec, [facility] [id number] [place] [address] 79180- 6628 Dec, [facility] [id number] [place] [address] 30727- 8634 Dec, Essential hypertension I10 [facility] [id number] [place] [address] 67390- 6019 14 Dec, 2017 [facility] [id number] [place] [address] 71595- 2841 Dec, [facility] [id number] [place] [address] 14152- 5551 Dec, BMI 40.0-44.9, adult Z68.41 ; Severe episode of recurrent major depressive disorder, without psychotic features F33.2 ; PTSD (post- traumatic stress disorder) F43.10 and Panic disorder F41.0 [facility] [id number] [place] [address] 63746- 9138 Dec, [facility] [id number] [place] [address] 05799- 2404 Dec, [facility] [address] [address]- 5270 Dec, Essential hypertension I10 [facility] [id number] [place] [address] 03273- 2545 Dec, Severe episode of recurrent major depressive disorder, without psychotic features F33.2 [facility] [id number] [place] [address] 18406- 1574 Dec, Severe episode of recurrent major depressive disorder, without psychotic features F33.2 and Generalized anxiety disorder F41.1 [facility] [id number] [place] [address] 91173- 7356 Nov, Cervical disc disease with myelopathy M50.00 [facility] [id number] [place] [address] 40517- 3956 Nov, Cervical disc disease with myelopathy M50.00 ; Moderate persistent asthma without complication J45.40 and BMI 40.0-44.9, adult Z68.41 [facility] [id number] [place] [address] 85530- 3165 Nov, [facility] [id number] [place] [address] 83799- 1293 Nov, [facility] [id number] [place] [address] 48169- 6130 Nov, [facility] [id number] [place] [address] 96431- 0084 Nov, [facility] [id number] [place] [address] 13705- 4611 Nov, [facility] [id number] [place] [address] 41659- 5762 Nov, [facility] [id number] [place] [address] 26083- 1695 Nov, [facility] [id number] [place] [address] 27229- 5320 Nov, [facility] [address], [place] [address]- 7770 Nov, [facility] [id number] [place] [address] 03118- 4861 Nov, Severe episode of recurrent major depressive disorder, without psychotic features F33.2 ; PTSD (post-traumatic stress disorder) F43.10 ; Panic disorder F41.0 and BMI 40.0-44.9, adult Z68.41 [facility] [id number] [place] [address] 68479- 6200 Nov, [facility] [id number] [place] [address] 20777- 4687 Nov, Essential hypertension I10 [facility] [id number] [place] [address] 72073- 3885 Nov, Severe episode of recurrent major depressive disorder, without psychotic features F33.2 [facility] [id number] [place] [address] 56638- 6493 Nov, Acute pain of left knee M25.562 [facility] [id number] [place] [address] 23317- 6279 Nov, Severe episode of recurrent major depressive disorder, without psychotic features F33.2 ; PTSD (post-traumatic stress disorder) F43.10 ; Panic disorder F41.0 and BMI 40.0-44.9, adult Z68.41 [facility] [address] [address]- 8383 Oct, [facility] [address], [place] [address]- 7987 Oct, [facility] [id number] [place] [address] 79655- 9277 Oct, [facility] [address], [place] [address]- 4083 Oct, [facility] [id number], [place] [address]- 9150 Oct, Dorsalgia, unspecified M54.9 [facility] [id number], [place] [address]- 6449 Oct, Severe episode of recurrent major depressive disorder, without psychotic features F33.2 and Generalized anxiety disorder F41.1 [facility] [id number] [place] [address] 50602- 5958 Oct, [facility] [id number] [place] [address] 57810- 1313 Oct, [facility] [id number] [place] [address] 83814- 8627 Oct, [facility] [id number] [place] [address] 38843- 2772 Oct, [facility] [id number] [place] [address] 75979- 3722 Oct, [facility] [address], [place] [address]- 1560 Oct, [facility] [id number] [place] [address] 21667- 9637 Oct, [facility] [address], [place] [address]- 3202 Oct, [facility] [address] [address]- 1479 Sep, Dorsalgia, unspecified M54.9 [facility] [address] [address]- 8416 Sep, [facility] [id number], [place] [address]- 9177 Sep, [facility] [address], [place] [address]- 7013 Sep, Falling R29.6 ; Essential hypertension I10 ; Chronic obstructive pulmonary disease, unspecified COPD type J44.9 and BMI 40.0-44.9, adult Z68.41 [facility] [id number] [place] [address] 87428- 5824 Sep, [facility] [id number] [place] [address] 49157- 6841 Sep, [facility] [id number] [place] [address] 84836- 8021 Sep, [facility] [id number] [place] [address] 27965- 2071 Sep, Mild intermittent asthma without complication J45.20 [facility] [id number] [place] [address] 64183- 3408 Sep, [facility] [id number] [place] [address] 19254- 2324 Sep, [facility] [id number] [place] [address] 80882- 4126 Sep, [facility] [id number] [place] [address] 59451- 7326 18 Sep, 2017 [facility] [id number] [place] [address] 01191- 0578 18 Sep, 2017 [facility] [id number] [place] [address] 10520- 7636 15 Sep, 2017 [facility] [id number] [place] [address] 96697- 5567 15 Sep, 2017 Essential hypertension I10 [facility] [id number] [place] [address] 35794- 6856 15 Sep, 2017 [facility] [id number] [place] [address] 90051- 4256 15 Sep, 2017 [facility] [id number] [place] [address] 73091- 5592 15 Sep, 2017 [facility] [id number] [place] [address] 46108- 4915 14 Sep, 2017 [facility] [address] [address]- 0685 14 Sep, 2017 [facility] [id number] [place] [address] 62825- 5161 14 Sep, 2017 [facility] [address], [place] [address]- 9055 13 Sep, 2017 [facility] [id number] [place] [address] 40229- 7307 Sep, [facility] [id number] [place] [address] 79484- 6947 Sep, [facility] [id number] [place] [address] 81757- 7516 Sep, [facility] [id number] [address]- 8481 Sep, Mild intermittent asthma without complication J45.20 [facility] [address], [place] [address]- 0457 August, Essential hypertension I10 [facility] [id number] [place] [address] 35756- 4085 August, BMI 40.0-44.9, adult Z68.41 ; Dorsalgia, unspecified M54.9 ; Allergic state, initial encounter T78.40XA ; Mild intermittent asthma without complication J45.20 and 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 [facility] [address] [address]- 0776 August, [facility] [address], [place] [address]- 5890 August, [facility] [address], [place] [address]- 1814 August, [facility] [address], [place] [address]- 5245 August, Reactive depression F32.9 [facility] [address] [facility] [id number] [place] [address]- 5897 August, [facility] [address] [facility] [id number] [place] [address]- 1858 August, [facility] [address] [facility] [id number] [place] [address]- 0917 August, [facility] [address] [facility] [id number] [place] [address]- 7061 August, [facility] [address] [facility] [id number] [place] [address]- 0180 August, [facility] [address] [facility] [id number] [place] [address]- 1582 August, [facility] [id number] [place] [address]- 6605 August, [facility] [id number] [place] [address]- 5428 August, Muscle spasms of both lower extremities M62.838 ; Essential hypertension I10 and Reactive depression F32.9 [facility] [id number] [place] [address]- 3883 August, [facility] [address] [facility] [id number] [place] [address]- 4412 Jul, [facility] [id number] [place] [address]- 1167 Jul, [facility] [address] [facility] [id number] [place] [address]- 4361 Jul, [facility] [address] [facility] [id number] [place] [address]- 7090 Jul, [facility] [address] [facility] [id number] [place] [address]- 3971 Jul, [facility] [address] [facility] [id number] [place] [address]- 5684 Jul, [facility] [address] [facility] [id number] [place] [address]- 8433 Jul, [facility] [address] [facility] [id number] [address]- 5779 Jul, [facility] [address] [facility] [id number] [address]- 4327 Jul, Essential hypertension I10 ; Other chronic pain G89.29 ; Dorsalgia, unspecified M54.9 ; Reactive depression F32.9 ; Mild intermittent asthma without complication J45.20 ; Allergic state, initial encounter T78.40XA and Muscle spasms of both lower extremities M62.838 IMMUNIZATIONS No Known Immunizations SOCIAL HISTORY Never Assessed REASON FOR VISIT Gout PLAN OF CARE VITAL SIGNS MEDICATIONS Unknown [...]
--- OUTSIDE RECORDS SUMMARY | 2018-04-06 07:54 | XMS REPORT ---
Author Author ROSALINA GRAHAM Organization [facility] Address [address] [place] [address] Care Team Providers Care [employer] Liaison Officer Name Role Phone ROSALINA GRAHAM Unavailable PROBLEMS Type Condition ICD9-CM Code SBG65-RP Code Onset Dates Condition Status SNOMED Code Problem Generalized anxiety disorder F41.1 Active 99244388 Problem Falling R29.6 Active 712155444 Problem Severe episode of recurrent major depressive disorder, without psychotic features F33.2 Active 84614949 Problem Arthritis M19.90 Active 7179508 Problem Environmental allergies Z91.09 Active 864464644 Problem Panic disorder F41.0 Active 073280956 Problem PTSD (post-traumatic stress disorder) F43.10 Active 06217599 Problem Moderate persistent asthma without complication J45.40 Active 342201367 Problem Cervical disc disease with myelopathy M50.00 Active 38767767 Problem Muscle spasms of both lower extremities M62.838 Active 077442207 Problem Essential hypertension I10 Active 18072745 Problem Allergic state, initial encounter T78.40XA Active 141671178 Problem Dorsalgia, unspecified M54.9 Active 122445645 Problem Reactive depression F32.9 Active 73753601 Problem Other chronic pain G89.29 Active 48222473 ALLERGIES No Known Allergies ENCOUNTERS Encounter Location Date Diagnosis [facility] [id number] [address] Mar, [facility] [id number] [address] 1124 Mar, [facility] [id number] [place] [address] 65445- 5919 Feb, [facility] [id number], [place] [address] 3[address] Feb, Arthritis M19.90 and BMI 40.0-44.9, adult Z68.41 [facility] [address], [place] [address] 4162 Feb, [facility] [id number] [place] [address] 66679- 4636 Feb, [facility] [id number] [place] [address] 74036- 9435 Feb, [facility] [id number] [place] [address] 99397- 2811 Feb, [facility] [id number] [place] [address] 29344- 4900 Feb, Essential hypertension I10 [facility] [id number] [place] [address] 90360- 2702 Jan, Severe episode of recurrent major depressive disorder, without psychotic features F33.2 [facility] [id number] [place] [address] 33568- 1517 Jan, [facility] [id number] [place] [address] 33021- 3926 Jan, Environmental allergies Z91.09 [facility] [id number] [place] [address] 54991- 6864 Jan, [facility] [id number] [place] [address] 10053- 8575 Jan, [facility] [id number] [place] [address] 54098- 4278 Jan, [facility] [id number] [place] [address] 06766- 3706 Jan, [facility] [id number] [place] [address] 18984- 5775 Jan, [facility] [id number] [place] [address] 38318- 1412 Jan, Cervical disc disease with myelopathy M50.00 [facility] [id number] [place] [address] 07048- 6827 Jan, Severe episode of recurrent major depressive disorder, without psychotic features F33.2 ; Panic disorder F41.0 ; PTSD (post-traumatic stress disorder) F43.10 and BMI 40.0-44.9, adult Z68.41 [facility] [id number] [place] [address] 53772- 9065 Jan, Severe episode of recurrent major depressive disorder, without psychotic features F33.2 and Generalized anxiety disorder F41.1 [facility] [id number] [place] [address] 25510- 2790 Jan, [facility] [id number] [place] [address] 50296- 3043 Jan, Cervical disc disease with myelopathy M50.00 [facility] [id number] [place] [address] 98273- 0662 Jan, [facility] [id number] [place] [address] 19623- 6344 Jan, [facility] [id number] [place] [address] 56346- 1342 Jan, [facility] [id number] [place] [address] 34985- 2051 Jan, [facility] [id number] [place] [address] 17917- 8652 Jan, [facility] [id number] [place] [address] 42250- 6917 Jan, Environmental allergies Z91.09 and BMI 40.0-44.9, adult Z68.41 [facility] [address] [address]- 4415 Jan, [facility] [id number] [place] [address] 10769- 0152 Jan, [facility] [address] 10461- 8927 Jan, Severe episode of recurrent major depressive disorder, without psychotic features F33.2 [facility] [id number] [place] [address] 52115- 0566 Dec, Severe episode of recurrent major depressive disorder, without psychotic features F33.2 [facility] [id number] [place] [address] 56287- 5773 Dec, Encounter for immunization Z23 [facility] [id number] [place] [address] 96749- 9113 Dec, [facility] [id number] [place] [address] 13506- 1985 Dec, Severe episode of recurrent major depressive disorder, without psychotic features F33.2 ; PTSD (post-traumatic stress disorder) F43.10 ; Panic disorder F41.0 and BMI 40.0-44.9, adult Z68.41 [facility] [id number] [place] [address] 92739- 4937 Dec, [facility] [id number] [place] [address] 83876- 4337 Dec, [facility] [id number] [place] [address] 81466- 0040 Dec, Essential hypertension I10 [facility] [id number] [place] [address] 05540- 3488 14 Dec, 2017 [facility] [id number] [place] [address] 68301- 9025 Dec, [facility] [id number] [place] [address] 40712- 6432 Dec, BMI 40.0-44.9, adult Z68.41 ; Severe episode of recurrent major depressive disorder, without psychotic features F33.2 ; PTSD (post- traumatic stress disorder) F43.10 and Panic disorder F41.0 [facility] [id number] [place] [address] 91571- 5202 Dec, [facility] [id number] [place] [address] 82767- 8219 Dec, [facility] [id number] [place] [address] 36236- 1547 Dec, Essential hypertension I10 [facility] [id number] [place] [address] 60095- 4484 Dec, Severe episode of recurrent major depressive disorder, without psychotic features F33.2 [facility] [id number] [place] [address] 45287- 5472 Dec, Severe episode of recurrent major depressive disorder, without psychotic features F33.2 and Generalized anxiety disorder F41.1 [facility] [id number] [place] [address] 13508- 3925 Nov, Cervical disc disease with myelopathy M50.00 [facility] [id number] [place] [address] 83647- 6396 Nov, Cervical disc disease with myelopathy M50.00 ; Moderate persistent asthma without complication J45.40 and BMI 40.0-44.9, adult Z68.41 [facility] [id number] [place] [address] 10194- 6631 Nov, [facility] [id number] [place] [address] 84573- 5617 Nov, [facility] [id number] [place] [address] 10931- 0283 Nov, [facility] [id number] [place] [address] 35345- 2535 Nov, [facility] [id number] [place] [address] 76198- 4980 Nov, [facility] [id number] [place] [address] 41614- 4952 Nov, [facility] [id number] [place] [address] 26653- 6809 Nov, [facility] [address], [place] [address]- 7385 Nov, [facility] [id number] [place] [address] 56426- 1929 Nov, [facility] [address], [place] [address]- 7059 Nov, Severe episode of recurrent major depressive disorder, without psychotic features F33.2 ; PTSD (post-traumatic stress disorder) F43.10 ; Panic disorder F41.0 and BMI 40.0-44.9, adult Z68.41 [facility] [id number] [place] [address] 93699- 9701 Nov, [facility] [id number] [place] [address] 43203- 4708 Nov, Essential hypertension I10 [facility] [id number] [place] [address] 94690- 8551 Nov, Severe episode of recurrent major depressive disorder, without psychotic features F33.2 [facility] [address], [place] [address]- 6745 Nov, Acute pain of left knee M25.562 [facility] [address], [place] [address]- 5561 Nov, Severe episode of recurrent major depressive disorder, without psychotic features F33.2 ; PTSD (post-traumatic stress disorder) F43.10 ; Panic disorder F41.0 and BMI 40.0-44.9, adult Z68.41 [facility] [address], [place] [address]- 7303 Oct, [facility] [id number] [place] [address] 25644- 9358 Oct, [facility] [address], [place] [address]- 3954 Oct, [facility] [id number] [place] [address] [place] [address]- 0144 Oct, [facility] [address] [place] [address]- 0829 Oct, Dorsalgia, unspecified M54.9 [facility] [address] [place] [address]- 6160 Oct, Severe episode of recurrent major depressive disorder, without psychotic features F33.2 and Generalized anxiety disorder F41.1 [facility] [address] [place] [address]- 0696 Oct, [facility] [id number] [place] [address], [place] [address]- 0527 Oct, [facility] [address] [place] [address]- 1234 Oct, [facility] [address] [place] [address]- 4497 Oct, [facility] [address] [place] [address]- 1762 Oct, [facility] [address] [place] [address]- 0570 Oct, [facility] [address] [place] [address]- 3017 Oct, [facility] [address] [place] [address]- 1185 Oct, [facility] [address], [place] [address]- 7258 Sep, Dorsalgia, unspecified M54.9 [facility] [address] [place] [address]- 6373 Sep, [facility] [address] [place] [address]- 2714 Sep, [facility] [address], [place] [address]- 6402 Sep, Falling R29.6 ; Essential hypertension I10 ; Chronic obstructive pulmonary disease, unspecified COPD type J44.9 and BMI 40.0-44.9, adult Z68.41 [facility] [id number] [place] [address] 90687- 8304 Sep, [facility] [id number] [place] [address] 75501- 5509 Sep, [facility] [id number] [place] [address] 62572- 0188 Sep, [facility] [id number] [place] [address] 11189- 3911 Sep, Mild intermittent asthma without complication J45.20 [facility] [id number] [place] [address] 30170- 8301 Sep, [facility] [id number] [place] [address] 17149- 5667 Sep, [facility] [id number] [place] [address] 63809- 8902 Sep, [facility] [id number] [place] [address] 85494- 6386 Sep, [facility] [id number] [place] [address] 78760- 9272 Sep, [facility] [id number] [place] [address] 23988- 3778 Sep, [facility] [id number] [place] [address] 97972- 3341 Sep, Essential hypertension I10 [facility] [id number] [place] [address] 91916- 1936 Sep, [facility] [id number] [place] [address] 92655- 7348 Sep, [facility] [id number] [place] [address] 21780- 2206 Sep, [facility] [address], [place] [address]- 9196 14 Sep, 2017 [facility] [address], [place] [address]- 6812 Sep, [facility] [address], [place] [address]- 4345 Sep, [facility] [id number] [place] [address] 14854- 1852 Sep, [facility] [id number] [place] [address] 27728- 1000 Sep, [facility] [id number] [place] [address] 49523- 2838 Sep, [facility] [id number], [place] [address]- 6051 Sep, [facility] [id number] [place] [address] 77053- 0453 Sep, Mild intermittent asthma without complication J45.20 [facility] [id number] [place] [address] 11272- 5100 August, Essential hypertension I10 [facility] [address], [place] [address]- 2416 August, BMI 40.0-44.9, adult Z68.41 ; Dorsalgia, unspecified M54.9 ; Allergic state, initial encounter T78.40XA ; Mild intermittent asthma without complication J45.20 and 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 [facility] [address], [place] [address]- 2113 August, [facility] [id number] [address]- 2829 August, [facility] [address], [place] [address]- 3685 August, [facility] [id number] [place] [address]- 4627 August, Reactive depression F32.9 [facility] [id number] [place] [address]- 9147 August, [facility] [address] [facility] [id number] [address]- 4623 August, [facility] [address] [facility] [id number] [place] [address]- 8584 August, [facility] [address] [facility] [id number] [place] [address]- 0193 August, [facility] [id number] [place] [address]- 1571 August, [facility] [id number] [place] [address]- 8482 August, [facility] [address] [place] [address]- 1639 August, [facility] [id number] [address]- 8026 August, Muscle spasms of both lower extremities M62.838 ; Essential hypertension I10 and Reactive depression F32.9 [facility] [address] [place] [address]- 3290 August, [facility] [address] [place] [address]- 6053 Jul, [facility] [id number], [place] [address]- 5738 Jul, [facility] [id number] [place] [address]- 3552 Jul, [facility] [id number] [address]- 2667 Jul, [facility] [address], [place] [address]- 9639 Jul, [facility] [address] [facility] [id number] [address]- 9582 Jul, [facility] [id number], [place] [address]- 7254 Jul, [facility] [id number] [address]- 9594 Jul, [facility] [id number] [address]- 2925 Jul, Essential hypertension I10 ; Other chronic pain G89.29 ; Dorsalgia, unspecified M54.9 ; Reactive depression F32.9 ; Mild intermittent asthma without complication J45.20 ; Allergic state, initial encounter T78.40XA and Muscle spasms of both lower extremities M62.838 IMMUNIZATIONS No Known Immunizations SOCIAL HISTORY Never Assessed REASON FOR VISIT Gout- in left hand pointer finger Ana Vallecillo , had sleep study done 02/22/18 Ana VALLECILLO , left leg buckled the other day and Pt fell going back to dr alanis on 02/28/18 Ana VALLECILLO , going to dementia unit on 05/16/18 Ana Vallecillo PLAN OF CARE Activity Details Follow Up Will call after lab Reason: Pending Test URIC ACID, SERUM VITAL SIGNS Height 66 in 2018-02-25 Weight 267 lbs 2018-02-25 Temperature 97.9 degrees Fahrenheit 2018-02-25 Heart Rate 82 bpm 2018-02-25 Respiratory Rate 20 2018-02-25 BMI 43.09 kg/m2 2018-02-25 Blood pressure systolic 122 mmHg 2018-02-25 Blood pressure diastolic 84 mmHg 2018-02-25 MEDICATIONS Medication Instructions Dosage Frequency Start Date End Date Duration Status Aspir-81 81 MG Orally Once a day 1 tablet 24h 30 day(s) Active Xanax 0.25 MG Orally Once a day 1 tablet 24h 30 Jan, 2018 28 days Active Atenolol 50 mg Orally Once a day 1 tablet 24h 90 days Active Breo Ellipta 100-25 MCG/INH Inhalation Once a day 1 puff 24h Sep, Active Zoloft 100 MG Orally Once a day 1.5 tablets daily for 1 week then take 2 tabs daily 24h 30 Active Lovastatin 40 mg Orally Once a day 1 tablet with the evening meal 24h Jul, 30 days Active Singulair 10 mg Orally Once a day 1 tablet 24h 90 days Active BusPIRone HCl 10 MG Orally Three times a day 1 tablet 8h Dec, 30 days Active Allergy 12 MG Orally every 12 hrs 1 tablet as needed 12h Active Fexofenadine-Pseudoephed ER 60-120 MG Orally Twice a day 1 tablet as needed 12h 04 Jan, 2018 Active Gabapentin 300 MG Orally twice a day 1 capsule 12h Not-Taking Vitamin B Complex - as directed Active Losartan Potassium 100 mg Orally Once a day 1 tablet 24h 30 days Active Cyclobenzaprine HCl 10 mg Orally Three times a day 1 tablet as needed 8h 11 Jan, 2018 20 days Active ProAir HFA 108 (90 Base) MCG/ACT Inhalation every 6 hrs 2 puffs as needed 6h Sep, Active Nabumetone Active RESULTS No Results PROCEDURES Procedure Date Ordered Result Body Site LAB NOT BILLED BY [facility] Feb 25, 2018 INSTRUCTIONS MEDICATIONS ADMINISTERED No Known Medications [...]
--- OUTSIDE RECORDS SUMMARY | 2018-04-06 07:54 | XMS REPORT ---
Author Author ROSALINA GRAHAM [facility] Address [address] [place] [address] Care Team Providers Care Plug Machine Operator Name Role Phone ROSALINA GRAHAM Unavailable PROBLEMS Type Condition ICD9-CM Code HDG83-IS Code Onset Dates Condition Status SNOMED Code Problem Reactive depression F32.9 Active 36637681 Problem Generalized anxiety disorder F41.1 Active 44012203 Problem Severe episode of recurrent major depressive disorder, without psychotic features F33.2 Active 21164080 Problem Environmental allergies Z91.09 Active 745908898 Problem Moderate persistent asthma without complication J45.40 Active 540088676 Problem PTSD (post-traumatic stress disorder) F43.10 Active 37628158 Problem Falling R29.6 Active 363124580 Problem Cervical disc disease with myelopathy M50.00 Active 86124228 Problem Panic disorder F41.0 Active 934139884 Problem Essential hypertension I10 Active 05543688 Problem Dorsalgia, unspecified M54.9 Active 279529266 Problem Other chronic pain G89.29 Active 14973127 Problem Allergic state, initial encounter T78.40XA Active 477949632 Problem Muscle spasms of both lower extremities M62.838 Active 860448050 ALLERGIES No Information ENCOUNTERS Encounter Location Date Diagnosis [facility] [id number] [address] Mar, [facility] [id number] [place] [address] 74309- 7173 Feb, [facility] [id number] [place] [address] 09526- 4351 Feb, [facility] [address], [place] [address] 17[address] Feb, [facility] [id number] [place] [address] 56430- 8787 Feb, [facility] [address] 8[address] Feb, [facility] [id number] [place] [address] 508153- 8296 Feb, [facility] [id number] [place] [address] 890764- 8917 Feb, [facility] [id number] [place] [address] 473586- 8499 Feb, Essential hypertension I10 [facility] [id number] [place] [address] 426219- 8670 Jan, Severe episode of recurrent major depressive disorder, without psychotic features F33.2 [facility] [id number] [place] [address] 96027- 3984 Jan, [facility] [id number] [place] [address] 98795- 6320 Jan, Environmental allergies Z91.09 [facility] [id number] [place] [address] 36168- 5471 Jan, [facility] [id number] [place] [address] 49009- 0385 Jan, [facility] [id number] [place] [address] 18044- 2096 Jan, [facility] [id number] [place] [address] 33928- 5953 Jan, [facility] [address], [place] [address] 3189 Jan, [facility] [id number] [place] [address] 690169- 7210 Jan, Cervical disc disease with myelopathy M50.00 [facility] [address], [place] [address] 5408 Jan, Severe episode of recurrent major depressive disorder, without psychotic features F33.2 ; Panic disorder F41.0 ; PTSD (post-traumatic stress disorder) F43.10 and BMI 40.0-44.9, adult Z68.41 [facility] [id number] [place] [address] 71657- 8621 Jan, Severe episode of recurrent major depressive disorder, without psychotic features F33.2 and Generalized anxiety disorder F41.1 [facility] [address] [address]- 2640 Jan, [facility] [id number] [place] [address] 23487- 8981 Jan, Cervical disc disease with myelopathy M50.00 [facility] [id number] [place] [address] 22826- 1349 Jan, [facility] [id number] [place] [address] 77790- 2400 Jan, [facility] [id number] [place] [address] 47012- 8746 Jan, [facility] [id number] [place] [address] 23892- 7520 Jan, [facility] [id number] [place] [address] 59772- 9351 Jan, [facility] [id number] [place] [address] 80378- 3048 Jan, Environmental allergies Z91.09 and BMI 40.0-44.9, adult Z68.41 [facility] [id number] [place] [address] 35188- 3786 Jan, [facility] [address] 71217- 8103 Jan, [facility] [id number] [place] [address] 25266- 0066 Jan, Severe episode of recurrent major depressive disorder, without psychotic features F33.2 [facility] [id number] [place] [address] 72254- 7283 27 Dec, 2017 Severe episode of recurrent major depressive disorder, without psychotic features F33.2 [facility] [id number] [place] [address] 78971- 0430 Dec, Encounter for immunization Z23 [facility] [id number] [place] [address] 83512- 8080 Dec, [facility] [address] 18302- 1027 24 Dec, 2017 Severe episode of recurrent major depressive disorder, without psychotic features F33.2 ; PTSD (post-traumatic stress disorder) F43.10 ; Panic disorder F41.0 and BMI 40.0-44.9, adult Z68.41 [facility] [id number] [place] [address] 84605- 7896 Dec, [facility] [id number] [place] [address] 03206- 7343 Dec, [facility] [id number] [place] [address] 99308- 7439 Dec, Essential hypertension I10 [facility] [id number] [place] [address] 91077- 3441 14 Dec, 2017 [facility] [id number] [place] [address] 81825- 8985 Dec, [facility] [id number] [place] [address] 45335- 3574 Dec, BMI 40.0-44.9, adult Z68.41 ; Severe episode of recurrent major depressive disorder, without psychotic features F33.2 ; PTSD (post- traumatic stress disorder) F43.10 and Panic disorder F41.0 [facility] [id number] [place] [address] 26214- 7868 Dec, [facility] [id number] [place] [address] 33951- 4059 Dec, [facility] [address], [place] [address]- 4271 Dec, Essential hypertension I10 [facility] [id number] [place] [address] 69551- 2549 Dec, Severe episode of recurrent major depressive disorder, without psychotic features F33.2 [facility] [id number] [place] [address] 42904- 5561 Dec, Severe episode of recurrent major depressive disorder, without psychotic features F33.2 and Generalized anxiety disorder F41.1 [facility] [id number] [place] [address] 89147- 8783 Nov, Cervical disc disease with myelopathy M50.00 [facility] [id number] [place] [address] 47222- 8884 Nov, Cervical disc disease with myelopathy M50.00 ; Moderate persistent asthma without complication J45.40 and BMI 40.0-44.9, adult Z68.41 [facility] [id number] [place] [address] 48578- 3706 Nov, [facility] [id number] [place] [address] 99755- 4980 Nov, [facility] [id number] [place] [address] 91874- 9419 Nov, [facility] [id number] [place] [address] 56298- 2070 Nov, [facility] [address] [place] [address] 51902- 4637 Nov, [facility] [id number] [place] [address] 73820- 2417 Nov, [facility] [id number] [place] [address] 45098- 0655 Nov, [facility] [id number] [place] [address] 11449- 3671 Nov, [facility] [address], [place] [address]- 7876 Nov, [facility] [id number] [place] [address] 92659- 6702 Nov, Severe episode of recurrent major depressive disorder, without psychotic features F33.2 ; PTSD (post-traumatic stress disorder) F43.10 ; Panic disorder F41.0 and BMI 40.0-44.9, adult Z68.41 [facility] [id number] [place] [address] 32428- 5581 Nov, [facility] [id number] [place] [address] 74060- 2165 Nov, Essential hypertension I10 [facility] [id number] [place] [address] 92128- 0401 Nov, Severe episode of recurrent major depressive disorder, without psychotic features F33.2 [facility] [address] [place] [address] 68955- 2136 Nov, Acute pain of left knee M25.562 [facility] [address] [place] [address] 75649- 8387 Nov, Severe episode of recurrent major depressive disorder, without psychotic features F33.2 ; PTSD (post-traumatic stress disorder) F43.10 ; Panic disorder F41.0 and BMI 40.0-44.9, adult Z68.41 [facility] [address], [place] [address]- 1636 Oct, [facility] [address], [place] [address]- 4651 Oct, [facility] [id number] [place] [address] 57557- 6994 Oct, [facility] [address], [place] [address]- 6380 Oct, [facility] [address], [place] [address]- 6416 Oct, Dorsalgia, unspecified M54.9 [facility] [address], [place] [address]- 4624 Oct, Severe episode of recurrent major depressive disorder, without psychotic features F33.2 and Generalized anxiety disorder F41.1 [facility] [id number] [place] [address] 86575- 6876 Oct, [facility] [id number] [place] [address] 69393- 4840 Oct, [facility] [id number] [place] [address] 04094- 7971 Oct, [facility] [id number] [place] [address] 62032- 6991 Oct, [facility] [id number] [place] [address] 94887- 6915 Oct, [facility] [address], [place] [address]- 8595 Oct, [facility] [id number] [place] [address] 89136- 0673 Oct, [facility] [address], [place] [address]- 6156 Oct, [facility] [address], [place] [address]- 3413 Sep, Dorsalgia, unspecified M54.9 [facility] [address], [place] [address]- 1947 Sep, [facility] [address], [place] [address]- 3344 Sep, [facility] [address], [place] [address]- 2546 Sep, Falling R29.6 ; Essential hypertension I10 ; Chronic obstructive pulmonary disease, unspecified COPD type J44.9 and BMI 40.0-44.9, adult Z68.41 [facility] [id number] [place] [address] 80553- 3026 Sep, [facility] [id number] [place] [address] 37462- 9698 Sep, [facility] [id number] [place] [address] 08432- 4414 Sep, [facility] [id number] [place] [address] 48647- 7298 Sep, Mild intermittent asthma without complication J45.20 [facility] [id number] [place] [address] 90666- 3393 Sep, [facility] [id number] [place] [address] 85719- 2409 Sep, [facility] [id number] [place] [address] 56210- 0718 Sep, [facility] [id number] [place] [address] 53051- 3758 18 Sep, 2017 [facility] [id number] [place] [address] 74075- 5548 18 Sep, 2017 [facility] [id number] [place] [address] 39241- 2708 15 Sep, 2017 [facility] [id number] [place] [address] 67876- 5654 15 Sep, 2017 Essential hypertension I10 [facility] [address] [place] [address] 25699- 9305 15 Sep, 2017 [facility] [id number] [place] [address] 42109- 8442 15 Sep, 2017 [facility] [address] [place] [address] 19760- 4177 15 Sep, 2017 [facility] [id number] [place] [address] 92763- 8776 14 Sep, 2017 [facility] [address], [place] [address]- 9831 14 Sep, 2017 [facility] [address] [place] [address] 56515- 8961 14 Sep, 2017 [facility] [address], [place] [address]- 6496 13 Sep, 2017 [facility] [id number] [place] [address] 89130- 4876 Sep, [facility] [address] [place] [address] 46558- 1746 Sep, [facility] [id number] [place] [address] 14995- 9316 Sep, [facility] [address], [place] [address]- 5861 Sep, Mild intermittent asthma without complication J45.20 [facility] [address], [place] [address]- 2520 August, Essential hypertension I10 [facility] [id number] [place] [address] 26910- 0396 August, BMI 40.0-44.9, adult Z68.41 ; Dorsalgia, unspecified M54.9 ; Allergic state, initial encounter T78.40XA ; Mild intermittent asthma without complication J45.20 and 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 [facility] [address], [place] [address]- 4591 August, [facility] [address], [place] [address]- 5018 August, [facility] [address], [place] [address]- 3903 August, [facility] [address], [place] [address]- 9558 August, Reactive depression F32.9 [facility] [address] [facility] [id number] [place] [address]- 5311 August, [facility] [address] [facility] [id number] [place] [address]- 7506 August, [facility] [address] [facility] [id number] [place] [address]- 8389 August, [facility] [address] [facility] [id number] [place] [address]- 4542 August, [facility] [address] [facility] [id number] [place] [address]- 2076 August, [facility] [address] [facility] [id number] [place] [address]- 5851 August, [facility] [id number] [place] [address]- 7480 August, [facility] [id number] [place] [address]- 5646 August, Muscle spasms of both lower extremities M62.838 ; Essential hypertension I10 and Reactive depression F32.9 [facility] [id number] [place] [address]- 1072 August, [facility] [address] [facility] [id number] [place] [address]- 9264 Jul, [facility] [id number] [place] [address]- 6705 Jul, [facility] [address] [facility] [id number] [place] [address]- 5932 Jul, [facility] [address] [facility] [id number] [place] [address]- 6617 Jul, [facility] [address] [facility] [id number] [place] [address]- 2354 Jul, [facility] [address] [facility] [id number] [place] [address]- 0263 Jul, [facility] [address] [facility] [id number] [place] [address]- 7764 Jul, [facility] [address] [facility] [id number] [address]- 4667 Jul, [facility] [address] [facility] [id number] [address]- 6426 Jul, Essential hypertension I10 ; Other chronic [...]
--- OUTSIDE RECORDS SUMMARY | 2018-04-06 07:55 | XMS REPORT ---
Author Author ROSALINA GRAHAM [facility] Address [address] [place] [address] Care Team Providers Care Branch General Manager Name Role Phone ROSALINA GRAHAM Unavailable PROBLEMS Type Condition ICD9-CM Code MLN14-SY Code Onset Dates Condition Status SNOMED Code Problem Reactive depression F32.9 Active 28950630 Problem Generalized anxiety disorder F41.1 Active 39400476 Problem Severe episode of recurrent major depressive disorder, without psychotic features F33.2 Active 27953933 Problem Environmental allergies Z91.09 Active 878202220 Problem Moderate persistent asthma without complication J45.40 Active 381502902 Problem PTSD (post-traumatic stress disorder) F43.10 Active 54710395 Problem Falling R29.6 Active 533579178 Problem Cervical disc disease with myelopathy M50.00 Active 62980285 Problem Panic disorder F41.0 Active 579366469 Problem Essential hypertension I10 Active 51144022 Problem Dorsalgia, unspecified M54.9 Active 174677803 Problem Other chronic pain G89.29 Active 27425462 Problem Allergic state, initial encounter T78.40XA Active 410563842 Problem Muscle spasms of both lower extremities M62.838 Active 766776716 ALLERGIES No Information ENCOUNTERS Encounter Location Date Diagnosis [facility] [id number], [place] [address] Mar, [facility] [id number] [place] [address]2569- 5893 Feb, [facility] [id number] [place] [address] 92849- 2804 Feb, [facility] [address] [address] Feb, [facility] [id number] [place] [address] 85386- 3621 Feb, [facility] [address], [place] [address] 6332 Feb, Essential hypertension I10 [facility] [id number] [place] [address] 451156- 9596 Jan, Severe episode of recurrent major depressive disorder, without psychotic features F33.2 [facility] [id number] [place] [address] 97147- 9088 Jan, [facility] [id number] [place] [address] 02622- 1018 Jan, Environmental allergies Z91.09 [facility] [id number] [place] [address] 945408- 2366 Jan, [facility] [id number] [place] [address] 79174- 9735 Jan, [facility] [id number] [place] [address] 37626- 2027 Jan, [facility] [id number] [place] [address] 08434- 7646 Jan, [facility] [id number] [place] [address] 78727- 5383 Jan, [facility] [id number], [place] [address] 4421 Jan, Cervical disc disease with myelopathy M50.00 [facility] [id number] [place] [address] 53577- 4435 Jan, Severe episode of recurrent major depressive disorder, without psychotic features F33.2 ; Panic disorder F41.0 ; PTSD (post-traumatic stress disorder) F43.10 and BMI 40.0-44.9, adult Z68.41 [facility] [address], [place] [address] 9765 Jan, Severe episode of recurrent major depressive disorder, without psychotic features F33.2 and Generalized anxiety disorder F41.1 [facility] [address], [place] [address]- 5[address] Jan, [facility] [id number] [place] [address] 09535- 3144 Jan, Cervical disc disease with myelopathy M50.00 [facility] [id number] [place] [address] 03138- 5515 Jan, [facility] [id number] [place] [address] 42462- 0406 Jan, [facility] [id number] [place] [address] 15209- 0120 Jan, [facility] [id number] [place] [address] 42013- 1814 Jan, [facility] [id number] [place] [address] 14314- 7008 Jan, [facility] [id number] [place] [address] 17684- 6556 Jan, Environmental allergies Z91.09 and BMI 40.0-44.[address], [address] [facility] [id number] [place] [address] 42390- 0764 Jan, [facility] [id number] [place] [address] 71238- 7421 Jan, [facility] [id number] [place] [address] 35245- 6602 Jan, Severe episode of recurrent major depressive disorder, without psychotic features F33.2 [facility] [id number] [place] [address] 30683- 3405 Dec, Severe episode of recurrent major depressive disorder, without psychotic features F33.2 [facility] [id number] [place] [address] 10128- 8473 Dec, Encounter for immunization Z23 [facility] [id number] [place] [address] 86938- 3134 25 Dec, 2017 [facility] [address], [place] [address]- 8881 24 Sep, 2017 Severe episode of recurrent major depressive disorder, without psychotic features F33.2 ; PTSD (post-traumatic stress disorder) F43.10 ; Panic disorder F41.0 and BMI 40.0-44.9, adult Z68.41 [facility] [id number] [place] [address] 86216- 6513 [address], [address] [facility] [id number] [place] [address] 77998- 5422 Dec, [facility] [id number] [place] [address] 03620- 2044 Dec, Essential hypertension I10 [facility] [id number] [place] [address] 65442- 2161 14 Dec, 2017 [facility] [id number] [place] [address] 79308- 3013 06 Dec, 2017 [facility] [address] [place] [address] 63549- 1878 05 Dec, 2017 BMI 40.0-44.9, adult Z68.41 ; Severe episode of recurrent major depressive disorder, without psychotic features F33.2 ; PTSD (post- traumatic stress disorder) F43.[address]0 [facility] [address], [place] [address]- 3791 05 Sep, 2017 [facility] [address], [place] [address]- 254 Dec, 2017 [facility] [id number] [place] [address] 26348- 0148 05 Sep, [address] [facility] [address], [place] [address]- 0285 04 Sep, 2017 Severe episode of recurrent major depressive disorder, without psychotic features F33.2 [facility] [id number] [place] [address] 63298- 2558 Dec, Severe episode of recurrent major depressive disorder, without psychotic features F33.2 and Generalized anxiety disorder F41.1 [facility] [address] [place] [address] 75637- 6922 Nov, Cervical disc disease with myelopathy M50.00 [facility] [id number] [place] [address] 40747- 7949 Nov, Cervical disc disease with myelopathy M50.00 ; Moderate persistent asthma without complication J45.40 and BMI 40.0-44.9, adult Z68.41 [facility] [id number] [place] [address] 582029- 9687 Nov, [facility] [id number] [place] [address] 19337- 2776 Nov, [facility] [id number] [place] [address] 64315- 9959 Nov, [facility] [id number] [place] [address] 71874- 6779 Nov, [facility] [id number] [place] [address] 28109- 1846 Nov, [facility] [id number] [place] [address] 88796- 0878 Nov, [facility] [id number] [place] [address] 22805- 3334 Nov, [facility] [address] [place] [address] 19496- 7691 Nov, [facility] [id number] [place] [address] 40208- 3622 Nov, [facility] [address] [place] [address] 20224- 8886 Nov, Severe episode of recurrent major depressive disorder, without psychotic features F33.2 ; PTSD (post-traumatic stress disorder) F43.10 ; Panic disorder F41.0 and BMI 40.0-44.9, adult Z68.41 [facility] [id number] [place] [address] 71861- 0808 Nov, [facility] [id number] [place] [address] 75366- 4079 Nov, Essential hypertension I10 [facility] [id number] [place] [address] 13056- 2200 Nov, Severe episode of recurrent major depressive disorder, without psychotic features F33.2 [facility] [id number] [place] [address] 35413- 1872 Nov, Acute pain of left knee M25.562 [facility] [id number] [place] [address] 67553- 9553 Nov, Severe episode of recurrent major depressive disorder, without psychotic features F33.2 ; PTSD (post-traumatic stress disorder) F43.10 ; Panic disorder F41.0 and BMI 40.0-44.9, adult Z68.41 [facility] [id number] [place] [address] 57990- 6938 Oct, [facility] [id number] [place] [address] 39560- 9199 Oct, [facility] [id number] [place] [address] 91269- 9318 Oct, [facility] [id number] [place] [address] 92139- 9751 Oct, [facility] [id number] [place] [address] 70636- 8962 Oct, Dorsalgia, unspecified M54.9 [facility] [id number] [place] [address] 41887- 9312 Oct, Severe episode of recurrent major depressive disorder, without psychotic features F33.2 and Generalized anxiety disorder F41.1 [facility] [address], [place] [address]- 3349 Oct, [facility] [address] [address] 3391 Oct, [facility] [address], [place] [address] 8894 Oct, [facility] [id number] [place] [address] 08418- 8311 Oct, [facility] [id number] [place] [address] 58647- 3750 Oct, [facility] [id number] [place] [address] 17357- 1193 Oct, [facility] [id number] [place] [address] 55931- 5893 Oct, [facility] [id number] [place] [address] 83365- 9352 Oct, [facility] [address], [place] [address]- 9007 Sep, Dorsalgia, unspecified M54.9 [facility] [address], [place] [address]- 2650 Sep, [facility] [address] [address] 5621 Sep, [facility] [id number] [place] [address] 23113- 7593 Sep, Falling R29.6 ; Essential hypertension I10 ; Chronic obstructive pulmonary disease, unspecified COPD type J44.9 and BMI 40.0-44.9, adult Z68.41 [facility] [address], [place] [address]- 8902 Sep, [facility] [address] [address] Sep, [facility] [address], [place] [address]- 0475 24 Sep, 2017 [facility] [address] [place] [address] 44177- 9554 Sep, Mild intermittent asthma without complication J45.20 [facility] [address], [place] [address]- 8099 [address], [address] [facility] [id number] [place] [address] 77255- 5538 [address], [address] [facility] [address] [place] [address] 41677- 1067 [address], [address] [facility] [id number] [place] [address] 55735- 2659 [address], [address] [facility] [id number] [place] [address] 48991- 3314 [address], [address] [facility] [id number] [place] [address] 50294- 3903 [address], [address] [facility] [address] [place] [address] 25858- 5844 15 Sep, [address] [facility] [id number] [place] [address] 42988- 4709 [address] [facility] [address], [place] [address]- 8466 [address], [address] [facility] [address], [place] [address]- 0444 [address], [address] [facility] [address], [place] [address]- 2845 [address], [address] [facility] [address] [place] [address] 97884- 1365 [address], [address] [facility] [address], [place] [address]- 0109 [address], [address] [facility] [address] [place] [address] 77591- 8431 Sep, [facility] [address], [place] [address]- 2724 Sep, [facility] [id number] [place] [address] 25764- 6236 Sep, [facility] [id number] [place] [address] 38627- 0473 Sep, [facility] [id number] [place] [address] 25371- 6532 Sep, Mild intermittent asthma without complication J45.20 [facility] [id number] [place] [address] 60858- 1938 August, Essential hypertension I10 [facility] [id number] [place] [address] 51728- 0851 August, BMI 40.0-44.9, adult Z68.41 ; Dorsalgia, unspecified M54.9 ; Allergic state, initial encounter T78.40XA ; Mild intermittent asthma without complication J45.20 and 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 [facility] [id number] [place] [address] 08885- 4419 August, [facility] [id number] [place] [address] 97175- 4607 August, [facility] [id number] [place] [address] 25387- 0020 August, [facility] [id number] [place] [address] 19188- 2512 August, Reactive depression F32.9 [facility] [id number] [place] [address] 66797- 0806 August, [facility] [id number] [place] [address] 43776- 2197 August, [facility] [address], [place] [address]- 0519 August, [facility] [address] [facility] [id number] [address]- 3414 August, [facility] [address] [facility] [id number] [place] [address]- 3960 August, [facility] [address] [facility] [id number] [place] [address]- 9318 August, [facility] [id number] [place] [address], [place] [address]- 6588 August, [facility] [address] [facility] [id number] [place] [address]- 2555 August, Muscle spasms of both lower extremities M62.838 ; Essential hypertension I10 and Reactive depression F32.9 [facility] [address] [place] [address] 0056 August, [facility] [id number] [place] [address]- 5213 Jul, [facility] [id number] [address]- 5329 Jul, [facility] [address] [place] [address]- 4877 Jul, [facility] [id number] [address]- 2792 Jul, [facility] [address] [place] [address]- 2118 Jul, [facility] [address] [facility] [id number] [address]- 3541 Jul, [facility] [address] [facility] [id number] [place] [address]- 4020 Jul, [facility] [address] [facility] [id number] [place] [address]- 2734 Jul, [facility] [address] [facility] [id number] [address]- 5932 Jul, Essential hypertension I10 ; Other chronic [...]
--- OUTSIDE RECORDS SUMMARY | 2018-04-06 07:55 | XMS REPORT ---
Author Author ROSALINA GRAHAM 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 Name Role Phone ROSALINA GRAHAM Unavailable PROBLEMS Type Condition ICD9-CM Code CZR85-TQ Code Onset Dates Condition Status SNOMED Code Problem Reactive depression F32.9 Active 94708809 Problem Generalized anxiety disorder F41.1 Active 82635395 Problem Severe episode of recurrent major depressive disorder, without psychotic features F33.2 Active 41074365 Problem Environmental allergies Z91.09 Active 531415657 Problem Moderate persistent asthma without complication J45.40 Active 480124628 Problem PTSD (post-traumatic stress disorder) F43.10 Active 80094976 Problem Falling R29.6 Active 386599429 Problem Cervical disc disease with myelopathy M50.00 Active 42301881 Problem Panic disorder F41.0 Active 956861184 Problem Essential hypertension I10 Active 75044236 Problem Dorsalgia, unspecified M54.9 Active 353782214 Problem Other chronic pain G89.29 Active 36645620 Problem Allergic state, initial encounter T78.40XA Active 596901901 Problem Muscle spasms of both lower extremities M62.838 Active 152348060 ALLERGIES No Information ENCOUNTERS Encounter Location Date Diagnosis [facility] [id number] [address] Mar, [facility] [id number] [place] [address] 17495- 2059 Feb, [facility] [id number] [place] [address] 17898- 4439 Feb, [facility] [address] [address] 0024 Feb, [facility] [id number] [place] [address] 72546- 0421 Feb, [facility] [address] [address] 4787 Feb, Essential hypertension I10 [facility] [id number] [place] [address] 049955- 8916 Jan, Severe episode of recurrent major depressive disorder, without psychotic features F33.2 [facility] [id number] [place] [address] 45912- 9058 Jan, [facility] [id number] [place] [address] 05078- 7246 Jan, Environmental allergies Z91.09 [facility] [id number] [place] [address] 495115- 3786 Jan, [facility] [id number] [place] [address] 25410- 6314 Jan, [facility] [id number] [place] [address] 35097- 8834 Jan, [facility] [id number] [place] [address] 31585- 2910 Jan, [facility] [id number] [place] [address] 65816- 2123 Jan, [facility] [id number] [address] 5213 Jan, Cervical disc disease with myelopathy M50.00 [facility] [id number] [place] [address] 14168- 9143 Jan, Severe episode of recurrent major depressive disorder, without psychotic features F33.2 ; Panic disorder F41.0 ; PTSD (post-traumatic stress disorder) F43.10 and BMI 40.0-44.9, adult Z68.41 [facility] [address] [address] 7913 Jan, Severe episode of recurrent major depressive disorder, without psychotic features F33.2 and Generalized anxiety disorder F41.1 [facility] [address] [address]- 1409 Jan, [facility] [id number] [place] [address] 25119- 9832 Jan, Cervical disc disease with myelopathy M50.00 [facility] [id number] [place] [address] 81669- 0396 Jan, [facility] [id number] [place] [address] 13049- 1790 Jan, [facility] [id number] [place] [address] 29814- 2617 Jan, [facility] [id number] [place] [address] 44362- 9575 Jan, [facility] [id number] [place] [address] 04586- 4761 Jan, [facility] [id number] [place] [address] 12974- 8776 Jan, Environmental allergies Z91.09 and BMI 40.0-44.9, adult Z68.41 [facility] [id number] [place] [address] 72595- 7276 Jan, [facility] [id number] [place] [address] 54647- 8990 Jan, [facility] [id number] [place] [address] 77248- 7747 Jan, Severe episode of recurrent major depressive disorder, without psychotic features F33.2 [facility] [id number] [place] [address] 68736- 1360 Dec, Severe episode of recurrent major depressive disorder, without psychotic features F33.2 [facility] [id number] [place] [address] 31089- 5889 Dec, Encounter for immunization Z23 [facility] [id number] [place] [address] 04573- 6336 25 Dec, 2017 [facility] [address] [address]- 5469 24 Sep, 2017 Severe episode of recurrent major depressive disorder, without psychotic features F33.2 ; PTSD (post-traumatic stress disorder) F43.10 ; Panic disorder F41.0 and BMI 40.0-44.9, adult Z68.41 [facility] [id number] [place] [address] 59367- 6810 23 Dec, 2017 [facility] [id number] [place] [address] 90287- 0344 Dec, [facility] [id number] [place] [address] 33939- 1817 Dec, Essential hypertension I10 [facility] [id number] [place] [address] 32718- 3894 14 Dec, 2017 [facility] [id number] [place] [address] 79079- 0503 06 Dec, 2017 [facility] [id number] [place] [address] 87552- 9028 05 Dec, 2017 BMI 40.0-44.9, adult Z68.41 ; Severe episode of recurrent major depressive disorder, without psychotic features F33.2 ; PTSD (post- traumatic stress disorder) F43.10 and Panic disorder F41.0 [facility] [address] [address]- 9915 05 Sep, 2017 [facility] [id number], [place] [address]- 2549 Dec, 2017 [facility] [id number] [place] [address] 87063- 8232 05 Sep, 2017 Essential hypertension I10 [facility] [address] [address]- 4321 04 Sep, 2017 Severe episode of recurrent major depressive disorder, without psychotic features F33.2 [facility] [id number] [place] [address] 19067- 8969 Dec, Severe episode of recurrent major depressive disorder, without psychotic features F33.2 and Generalized anxiety disorder F41.1 [facility] [id number] [place] [address] 95569- 7237 Nov, Cervical disc disease with myelopathy M50.00 [facility] [id number] [place] [address] 34714- 5401 Nov, Cervical disc disease with myelopathy M50.00 ; Moderate persistent asthma without complication J45.40 and BMI 40.0-44.9, adult Z68.41 [facility] [id number] [place] [address] 473930- 9373 Nov, [facility] [id number] [place] [address] 42053- 9838 Nov, [facility] [id number] [place] [address] 36252- 4820 Nov, [facility] [id number] [place] [address] 39217- 6431 Nov, [facility] [id number] [place] [address] 27564- 4083 Nov, [facility] [id number] [place] [address] 77331- 2758 Nov, [facility] [id number] [place] [address] 13808- 9425 Nov, [facility] [id number] [place] [address] 12872- 3415 Nov, [facility] [id number] [place] [address] 41400- 8988 Nov, [facility] [id number] [place] [address] 26114- 6993 Nov, Severe episode of recurrent major depressive disorder, without psychotic features F33.2 ; PTSD (post-traumatic stress disorder) F43.10 ; Panic disorder F41.0 and BMI 40.0-44.9, adult Z68.41 [facility] [id number] [place] [address] 70970- 5700 Nov, [facility] [id number] [place] [address] 99140- 2779 Nov, Essential hypertension I10 [facility] [id number] [place] [address] 88073- 2759 Nov, Severe episode of recurrent major depressive disorder, without psychotic features F33.2 [facility] [id number] [place] [address] 89033- 1229 Nov, Acute pain of left knee M25.562 [facility] [id number] [place] [address] 40470- 3300 Nov, Severe episode of recurrent major depressive disorder, without psychotic features F33.2 ; PTSD (post-traumatic stress disorder) F43.10 ; Panic disorder F41.0 and BMI 40.0-44.9, adult Z68.41 [facility] [id number] [place] [address] 99156- 9190 Oct, [facility] [id number] [place] [address] 59645- 6490 Oct, [facility] [id number] [place] [address] 93946- 9057 Oct, [facility] [id number] [place] [address] 61184- 1715 Oct, [facility] [id number] [place] [address] 31592- 0360 Oct, Dorsalgia, unspecified M54.9 [facility] [id number] [place] [address] 83242- 0847 Oct, Severe episode of recurrent major depressive disorder, without psychotic features F33.2 and Generalized anxiety disorder F41.1 [facility] [id number] [address]- 9719 Oct, [facility] [id number], [place] [address]- 0889 Oct, [facility] [address] [address]- 4018 Oct, [facility] [id number] [place] [address] 33343- 5959 Oct, [facility] [id number] [place] [address] 34982- 1453 Oct, [facility] [id number] [place] [address] 94057- 1270 Oct, [facility] [id number] [place] [address] 79097- 3261 Oct, [facility] [id number] [place] [address] 97071- 1848 Oct, [facility] [id number], [place] [address]- 3082 Sep, Dorsalgia, unspecified M54.9 [facility] [id number], [place] [address]- 1012 Sep, [facility] [id number] [address]- 8583 Sep, [facility] [id number] [place] [address] 13539- 6362 Sep, Falling R29.6 ; Essential hypertension I10 ; Chronic obstructive pulmonary disease, unspecified COPD type J44.9 and BMI 40.0-44.9, adult Z68.41 [facility] [id number], [place] [address]- 3350 Sep, [facility] [id number] [address]- 3794 Sep, [facility] [id number] [address]- 3804 24 Sep, 2017 [facility] [id number] [place] [address] 78668- 8459 Sep, Mild intermittent asthma without complication J45.20 [facility] [address], [place] [address]- 1814 19 Sep, 2017 [facility] [id number] [place] [address] 26546- 7001 19 Sep, 2017 [facility] [id number] [place] [address] 92903- 3001 19 Sep, 2017 [facility] [id number] [place] [address] 15297- 6698 18 Sep, 2017 [facility] [id number] [place] [address] 42225- 6556 18 Sep, 2017 [facility] [id number] [place] [address] 69039- 3365 15 Sep, 2017 [facility] [id number] [place] [address] 40807- 7296 15 Sep, 2017 Essential hypertension I10 [facility] [id number] [place] [address] 62256- 8721 15 Sep, 2017 [facility] [id number] [address]- 3180 15 Sep, 2017 [facility] [id number], [place] [address]- 9833 15 Sep, 2017 [facility] [id number], [place] [address]- 8990 14 Sep, 2017 [facility] [id number] [place] [address] 04008- 0215 14 Sep, 2017 [facility] [id number] [address]- 9748 14 Sep, 2017 [facility] [id number] [place] [address] 26426- 4795 Sep, [facility] [id number], [place] [address]- 7196 Sep, [facility] [id number] [place] [address] 85050- 9270 Sep, [facility] [id number] [place] [address] 42039- 0262 Sep, [facility] [id number] [place] [address] 52037- 3156 Sep, Mild intermittent asthma without complication J45.20 [facility] [id number] [place] [address] 62046- 3154 August, Essential hypertension I10 [facility] [id number] [place] [address] 49354- 2473 August, BMI 40.0-44.9, adult Z68.41 ; Dorsalgia, unspecified M54.9 ; Allergic state, initial encounter T78.40XA ; Mild intermittent asthma without complication J45.20 and 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 [facility] [id number] [place] [address] 84184- 8025 August, [facility] [id number] [place] [address] 50181- 6333 August, [facility] [id number] [place] [address] 56375- 1714 August, [facility] [id number] [place] [address] 87045- 7264 August, Reactive depression F32.9 [facility] [id number] [place] [address] 55471- 3796 August, [facility] [id number] [place] [address] 72562- 7533 August, [facility] [id number] [address]- 9293 August, [facility] [address] [facility] [id number] [address]- 8059 August, [facility] [address] [facility] [id number] [place] [address]- 2208 August, [facility] [address] [facility] [id number] [place] [address]- 7313 August, [facility] [id number] [place] [address], [place] [address]- 4778 August, [facility] [address] [facility] [id number] [place] [address]- 1177 August, Muscle spasms of both lower extremities M62.838 ; Essential hypertension I10 and Reactive depression F32.9 [facility] [id number] [address]- 1029 August, [facility] [id number] [place] [address]- 2402 Jul, [facility] [id number] [address]- 8143 Jul, [facility] [id number] [place] [address]- 3626 Jul, [facility] [id number] [address]- 8060 Jul, [facility] [id number] [place] [address]- 6031 Jul, [facility] [address] [facility] [id number], [place] [address]- 2133 Jul, [facility] [address] [facility] [id number] [place] [address]- 3571 Jul, [facility] [address] [facility] [id number] [place] [address]- 4682 Jul, [facility] [address] [facility] [id number] [address]- 7258 Jul, Essential hypertension I10 ; Other chronic [...]
--- OUTSIDE RECORDS SUMMARY | 2018-04-06 07:55 | XMS REPORT ---
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 Name Role Phone ROSALINA GRAHAM Unavailable PROBLEMS Type Condition ICD9-CM Code [id number] Code Onset Dates Condition Status SNOMED Code Problem Reactive depression F32.9 Active 29452455 Problem Generalized anxiety disorder F41.1 Active 48997999 Problem Severe episode of recurrent major depressive disorder, without psychotic features F33.2 Active 02649464 Problem Environmental allergies Z91.09 Active 436314800 Problem Moderate persistent asthma without complication J45.40 Active 013875284 Problem PTSD (post-traumatic stress disorder) F43.10 Active 19959729 Problem Falling R29.6 Active 475834830 Problem Cervical disc disease with myelopathy M50.00 Active 05356528 Problem Panic disorder F41.0 Active 616920832 Problem Essential hypertension I10 Active 65569278 Problem Dorsalgia, unspecified M54.9 Active 301689021 Problem Other chronic pain G89.29 Active 96794128 Problem Allergic state, initial encounter T78.40XA Active 234938073 Problem Muscle spasms of both lower extremities M62.838 Active 640126291 ALLERGIES No Information ENCOUNTERS Encounter Location Date Diagnosis [facility] [id number] [address] Mar, [facility] [id number] [place] [address] 78134- 0815 Feb, [facility] [id number] [place] [address] 62685- 8038 Feb, [facility] [address] [address] 1527 Feb, [facility] [id number] [place] [address] 76004- 6402 Feb, [facility] [address], [place] [address] 24[address] Feb, Essential hypertension I10 [facility] [id number] [place] [address] 226346- 3226 Jan, Severe episode of recurrent major depressive disorder, without psychotic features F33.2 [facility] [id number] [place] [address] 38698- 1133 Jan, [facility] [id number] [place] [address] 75454- 8345 Jan, Environmental allergies Z91.09 [facility] [id number] [place] [address] 538322- 0526 Jan, [facility] [id number] [place] [address] 08764- 5172 Jan, [facility] [id number] [place] [address] 60834- 5847 Jan, [facility] [id number] [place] [address] 23271- 5498 Jan, [facility] [id number] [place] [address] 69646- 2224 Jan, [facility] [id number] [address] 8280 Jan, Cervical disc disease with myelopathy M50.00 [facility] [id number] [place] [address] 17291- 0832 Jan, Severe episode of recurrent major depressive disorder, without psychotic features F33.2 ; Panic disorder F41.0 ; PTSD (post-traumatic stress disorder) F43.10 and BMI 40.0-44.9, adult Z68.41 [facility] [address] [address] 9344 Jan, Severe episode of recurrent major depressive disorder, without psychotic features F33.2 and Generalized anxiety disorder F41.1 [facility] [address], [place] [address]- 3143 Jan, [facility] [id number] [place] [address] 63137- 2852 Jan, Cervical disc disease with myelopathy M50.00 [facility] [id number] [place] [address] 89086- 4738 Jan, [facility] [id number] [place] [address] 96440- 2590 Jan, [facility] [id number] [place] [address] 32793- 6044 Jan, [facility] [id number] [place] [address] 32641- 8596 Jan, [facility] [id number] [place] [address] 58607- 2100 Jan, [facility] [id number] [place] [address] 31819- 1081 Jan, Environmental allergies Z91.09 and BMI 40.0-44.9, adult Z68.41 [facility] [id number] [place] [address] 55163- 4835 Jan, [facility] [id number] [place] [address] 00866- 7055 Jan, [facility] [id number] [place] [address] 38509- 4190 Jan, Severe episode of recurrent major depressive disorder, without psychotic features F33.2 [facility] [id number] [place] [address] 23858- 2238 Dec, Severe episode of recurrent major depressive disorder, without psychotic features F33.2 [facility] [id number] [place] [address] 70667- 2588 Dec, Encounter for immunization Z23 [facility] [id number] [place] [address] 82631- 7600 25 Dec, 2017 [facility] [address], [place] [address]- 2871 24 Sep, 2017 Severe episode of recurrent major depressive disorder, without psychotic features F33.2 ; PTSD (post-traumatic stress disorder) F43.10 ; Panic disorder F41.0 and BMI 40.0-44.9, adult Z68.41 [facility] [id number] [place] [address] 09818- 3054 23 Dec, 2017 [facility] [id number] [place] [address] 84847- 0995 Dec, [facility] [id number] [place] [address] 21728- 7200 Dec, Essential hypertension I10 [facility] [id number] [place] [address] 80417- 6572 14 Dec, 2017 [facility] [id number] [place] [address] 53790- 6216 06 Dec, 2017 [facility] [address] [place] [address] 32791- 6042 05 Dec, 2017 BMI 40.0-44.9, adult Z68.41 ; Severe episode of recurrent major depressive disorder, without psychotic features F33.2 ; PTSD (post- traumatic stress disorder) F43.10 and Panic disorder F41.0 [facility] [address], [place] [address]- 1640 05 Sep, 2017 [facility] [address], [place] [address]- 2541 Dec, 2017 [facility] [id number] [place] [address] 17782- 4592 05 Sep, 2017 Essential hypertension I10 [facility] [address], [place] [address]- 3543 04 Sep, 2017 Severe episode of recurrent major depressive disorder, without psychotic features F33.2 [facility] [id number] [place] [address] 97679- 3543 Dec, Severe episode of recurrent major depressive disorder, without psychotic features F33.2 and Generalized anxiety disorder F41.1 [facility] [id number] [place] [address] 21861- 1472 Nov, Cervical disc disease with myelopathy M50.00 [facility] [id number] [place] [address] 01172- 1996 Nov, Cervical disc disease with myelopathy M50.00 ; Moderate persistent asthma without complication J45.40 and BMI 40.0-44.9, adult Z68.41 [facility] [id number] [place] [address] 955431- 7507 Nov, [facility] [id number] [place] [address] 05206- 2365 Nov, [facility] [id number] [place] [address] 86416- 0985 Nov, [facility] [id number] [place] [address] 46182- 1127 Nov, [facility] [id number] [place] [address] 52513- 7683 Nov, [facility] [id number] [place] [address] 73550- 5554 Nov, [facility] [id number] [place] [address] 15320- 1125 Nov, [facility] [id number] [place] [address] 39022- 5728 Nov, [facility] [id number] [place] [address] 17404- 3112 Nov, [facility] [id number] [place] [address] 81489- 9759 Nov, Severe episode of recurrent major depressive disorder, without psychotic features F33.2 ; PTSD (post-traumatic stress disorder) F43.10 ; Panic disorder F41.0 and BMI 40.0-44.9, adult Z68.41 [facility] [id number] [place] [address] 35639- 2766 Nov, [facility] [id number] [place] [address] 70441- 6825 Nov, Essential hypertension I10 [facility] [id number] [place] [address] 37645- 8205 Nov, Severe episode of recurrent major depressive disorder, without psychotic features F33.2 [facility] [id number] [place] [address] 52463- 7679 Nov, Acute pain of left knee M25.562 [facility] [id number] [place] [address] 60323- 5448 Nov, Severe episode of recurrent major depressive disorder, without psychotic features F33.2 ; PTSD (post-traumatic stress disorder) F43.10 ; Panic disorder F41.0 and BMI 40.0-44.9, adult Z68.41 [facility] [id number] [place] [address] 54623- 9536 Oct, [facility] [id number] [place] [address] 74621- 5861 Oct, [facility] [id number] [place] [address] 78854- 0717 Oct, [facility] [id number] [place] [address] 11728- 8215 Oct, [facility] [id number] [place] [address] 42921- 5784 Oct, Dorsalgia, unspecified M54.9 [facility] [id number] [place] [address] 35406- 5687 Oct, Severe episode of recurrent major depressive disorder, without psychotic features F33.2 and Generalized anxiety disorder F41.1 [facility] [id number] [address]- 5296 Oct, [facility] [address], [place] [address]- 8323 Oct, [facility] [address], [place] [address]- 9177 Oct, [facility] [id number] [place] [address] 83550- 8346 Oct, [facility] [id number] [place] [address] 54021- 2269 Oct, [facility] [id number] [place] [address] 40446- 5742 Oct, [facility] [id number] [place] [address] 00338- 9005 Oct, [facility] [id number] [place] [address] 20476- 4091 Oct, [facility] [address], [place] [address]- 5326 Sep, Dorsalgia, unspecified M54.9 [facility] [id number], [place] [address]- 9330 Sep, [facility] [address], [place] [address]- 4159 Sep, [facility] [id number] [place] [address] 32776- 6904 Sep, Falling R29.6 ; Essential hypertension I10 ; Chronic obstructive pulmonary disease, unspecified COPD type J44.9 and BMI 40.0-44.9, adult Z68.41 [facility] [address], [place] [address]- 4261 Sep, [facility] [address], [place] [address]- 9391 Sep, [facility] [id number] [address]- 7332 24 Sep, 2017 [facility] [id number] [place] [address] 76466- 6271 Sep, Mild intermittent asthma without complication J45.20 [facility] [address], [place] [address]- 3036 19 Sep, 2017 [facility] [id number] [place] [address] 11650- 4060 19 Sep, 2017 [facility] [id number] [place] [address] 75011- 8863 19 Sep, 2017 [facility] [id number] [place] [address] 77560- 9425 18 Sep, 2017 [facility] [id number] [place] [address] 29963- 6844 18 Sep, 2017 [facility] [id number] [place] [address] 83528- 0345 15 Sep, 2017 [facility] [address] [place] [address] 13606- 9315 15 Sep, 2017 Essential hypertension I10 [facility] [id number] [place] [address] 20097- 5317 15 Sep, 2017 [facility] [address], [place] [address]- 1299 15 Sep, 2017 [facility] [address], [place] [address]- 8399 15 Sep, 2017 [facility] [address], [place] [address]- 9730 14 Sep, 2017 [facility] [address] [place] [address] 07499- 3259 14 Sep, 2017 [facility] [address], [place] [address]- 7714 14 Sep, 2017 [facility] [id number] [place] [address] 66134- 5893 Sep, [facility] [address], [place] [address]- 3122 Sep, [facility] [id number] [place] [address] 36242- 5780 Sep, [facility] [id number] [place] [address] 75081- 6337 Sep, [facility] [id number] [place] [address] 46131- 5140 Sep, Mild intermittent asthma without complication J45.20 [facility] [id number] [place] [address] 51342- 5820 August, Essential hypertension I10 [facility] [id number] [place] [address] 09467- 4209 August, BMI 40.0-44.9, adult Z68.41 ; Dorsalgia, unspecified M54.9 ; Allergic state, initial encounter T78.40XA ; Mild intermittent asthma without complication J45.20 and 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 [facility] [id number] [place] [address] 94739- 6521 August, [facility] [id number] [place] [address] 46488- 2787 August, [facility] [id number] [place] [address] 29612- 8067 August, [facility] [id number] [place] [address] 68860- 3366 August, Reactive depression F32.9 [facility] [id number] [place] [address] 45960- 5336 August, [facility] [id number] [place] [address] 36032- 4290 August, [facility] [id number], [place] [address]- 2341 August, [facility] [address] [facility] [id number] [address]- 1591 August, [facility] [address] [facility] [id number] [place] [address]- 0848 August, [facility] [address] [facility] [id number] [place] [address]- 9340 August, [facility] [id number] [place] [address], [place] [address]- 8618 August, [facility] [address] [facility] [id number] [place] [address]- 9807 August, Muscle spasms of both lower extremities M62.838 ; Essential hypertension I10 and Reactive depression F32.9 [facility] [address] [place] [address]- 3072 August, [facility] [id number] [place] [address]- 6815 Jul, [facility] [id number] [address]- 2045 Jul, [facility] [address] [place] [address]- 2229 Jul, [facility] [id number], [place] [address]- 1522 Jul, [facility] [address] [place] [address]- 8723 Jul, [facility] [address] [facility] [id number] [address]- 6114 Jul, [facility] [address] [facility] [id number] [place] [address]- 7250 Jul, [facility] [address] [facility] [id number] [place] [address]- 3525 Jul, [facility] [address] [facility] [id number] [address]- 4755 Jul, Essential hypertension I10 ; Other chronic [...] as needed 8h Jan, 20 days Active RESULTS No Results PROCEDURES No [...]
--- OUTSIDE RECORDS SUMMARY | 2018-04-06 07:56 | XMS REPORT ---
Author Author ROSALINA GRAHAM [facility] Address [address] [place] [address] Care Team Providers Care Trailer Sections Assembler Name Role Phone ROSALINA GRAHAM Unavailable PROBLEMS Type Condition ICD9-CM Code TTG42-EM Code Onset Dates Condition Status SNOMED Code Problem Reactive depression F32.9 Active 60617963 Problem Generalized anxiety disorder F41.1 Active 13862028 Problem Severe episode of recurrent major depressive disorder, without psychotic features F33.2 Active 64195729 Problem Environmental allergies Z91.09 Active 627113359 Problem Moderate persistent asthma without complication J45.40 Active 814650383 Problem PTSD (post-traumatic stress disorder) F43.10 Active 12718497 Problem Falling R29.6 Active 751715496 Problem Cervical disc disease with myelopathy M50.00 Active 20737920 Problem Panic disorder F41.0 Active 942874822 Problem Essential hypertension I10 Active 97229564 Problem Dorsalgia, unspecified M54.9 Active 216999652 Problem Other chronic pain G89.29 Active 16670107 Problem Allergic state, initial encounter T78.40XA Active 042504594 Problem Muscle spasms of both lower extremities M62.838 Active 619453574 ALLERGIES No Information ENCOUNTERS Encounter Location Date Diagnosis [facility] [id number], [place] [address] Mar, [facility] [address], [place] [address] 14[address] Feb, [facility] [id number] [place] [address] 38487- 5257 Feb, [facility] [address], [place] [address] 8844 Jan, [facility] [id number] [place] [address] 75452- 1405 Jan, Environmental allergies Z91.09 [facility] [address], [place] [address] 9230 Jan, [facility] [id number] [place] [address] 15901- 9989 Jan, [facility] [address], [place] [address]- 1430 Jan, [facility] [id number] [place] [address] 49780- 7241 Jan, [facility] [id number] [place] [address] 67506- 4387 Jan, [facility] [id number] [place] [address] 82108- 4796 Jan, Cervical disc disease with myelopathy M50.00 [facility] [id number] [place] [address] 86791- 6993 Jan, Severe episode of recurrent major depressive disorder, without psychotic features F33.2 ; Panic disorder F41.0 ; PTSD (post-traumatic stress disorder) F43.10 and BMI 40.0-44.9, adult Z68.41 [facility] [address], [place] [address] 1403 Jan, Severe episode of recurrent major depressive disorder, without psychotic features F33.2 and Generalized anxiety disorder F41.1 [facility] [address], [place] [address] 3405 Jan, [facility] [address], [place] [address]- 7531 Jan, Cervical disc disease with myelopathy M50.00 [facility] [address], [place] [address] 5353 Jan, [facility] [address], [place] [address]- 2404 Jan, [facility] [id number], [place] [address] 0016 Jan, [facility] [id number] [place] [address] 62610- 0928 Jan, [facility] [id number] [place] [address] 34224- 2915 Jan, [facility] [id number] [place] [address] 65592- 0547 Jan, Environmental allergies Z91.09 and BMI 40.0-44.9, adult Z68.41 [facility] [id number] [place] [address] 19219- 9618 Jan, [facility] [id number] [place] [address] 31451- 5864 Jan, [facility] [id number] [place] [address] 48200- 1347 Jan, Severe episode of recurrent major depressive disorder, without psychotic features F33.2 [facility] [id number] [place] [address] 87317- 8348 Dec, Severe episode of recurrent major depressive disorder, without psychotic features F33.2 [facility] [id number] [place] [address] 31932- 7103 Dec, Encounter for immunization Z23 [facility] [id number] [place] [address] 83260- 5140 Dec, [facility] [id number] [place] [address] 28314- 3605 Dec, Severe episode of recurrent major depressive disorder, without psychotic features F33.2 ; PTSD (post-traumatic stress disorder) F43.10 ; Panic disorder F41.0 and BMI 40.0-44.9, adult Z68.41 [facility] [address], [place] [address]- 0414 Dec, [facility] [id number] [place] [address] 04367- 1550 Dec, [facility] [address], [place] [address] 4512 Dec, Essential hypertension I10 [facility] [id number] [place] [address] 47416- 3743 14 Dec, 2017 [facility] [id number] [place] [address] 57681- 0267 Dec, [facility] [id number] [place] [address] 01364- 0051 Dec, BMI 40.0-44.9, adult Z68.41 ; Severe episode of recurrent major depressive disorder, without psychotic features F33.2 ; PTSD (post- traumatic stress disorder) F43.10 and Panic disorder F41.0 [facility] [id number] [place] [address] 47079- 6020 Dec, [facility] [id number] [place] [address] 47382- 2394 Dec, [facility] [id number] [place] [address] 63090- 6525 Dec, Essential hypertension I10 [facility] [id number] [place] [address] 02418- 0924 Dec, Severe episode of recurrent major depressive disorder, without psychotic features F33.2 [facility] [id number] [place] [address] 78460- 4453 Dec, Severe episode of recurrent major depressive disorder, without psychotic features F33.2 and Generalized anxiety disorder F41.1 [facility] [id number] [place] [address] 18694- 9028 Nov, Cervical disc disease with myelopathy M50.00 [facility] [id number] [place] [address] 03445- 5792 Nov, Cervical disc disease with myelopathy M50.00 ; Moderate persistent asthma without complication J45.40 and BMI 40.0-44.9, adult Z68.41 [facility] [address], [place] [address] 3155 Nov, [facility] [id number] [place] [address] 96793- 3198 Nov, [facility] [id number] [address]- 6517 Nov, [facility] [id number] [place] [address] 35151- 2321 Nov, [facility] [id number] [place] [address], [place] [address]- 7563 Nov, [facility] [id number] [place] [address] 70392- 4615 Nov, [facility] [id number] [place] [address] 57934- 9051 Nov, [facility] [id number] [place] [address] 50924- 0268 Nov, [facility] [id number] [place] [address] 68619- 6206 Nov, [facility] [address], [place] [address]- 1399 Nov, Severe episode of recurrent major depressive disorder, without psychotic features F33.2 ; PTSD (post-traumatic stress disorder) F43.10 ; Panic disorder F41.0 and BMI 40.0-44.9, adult Z68.41 [facility] [address], [place] [address]- 0148 Nov, [facility] [id number] [place] [address] 06718- 4259 Nov, Essential hypertension I10 [facility] [address], [place] [address]- 3110 Nov, Severe episode of recurrent major depressive disorder, without psychotic features F33.2 [facility] [address], [place] [address]- 3360 Nov, Acute pain of left knee M25.562 [facility] [id number] [place] [address] 98619- 6865 Nov, Severe episode of recurrent major depressive disorder, without psychotic features F33.2 ; PTSD (post-traumatic stress disorder) F43.10 ; Panic disorder F41.0 and BMI 40.0-44.9, adult Z68.41 [facility] [id number], [place] [address]- 5549 Oct, [facility] [id number] [place] [address] 57255- 3626 Oct, [facility] [id number] [place] [address] 60647- 2719 Oct, [facility] [id number] [place] [address] 34154- 8931 Oct, [facility] [id number] [place] [address] 32844- 1951 Oct, Dorsalgia, unspecified M54.9 [facility] [id number] [place] [address] 13213- 1929 Oct, Severe episode of recurrent major depressive disorder, without psychotic features F33.2 and Generalized anxiety disorder F41.1 [facility] [address], [place] [address]- 0594 Oct, [facility] [address], [place] [address]- 8883 Oct, [facility] [id number], [place] [address]- 9092 Oct, [facility] [address], [place] [address]- 7412 Oct, [facility] [address], [place] [address]- 4654 Oct, [facility] [address], [place] [address]- 1451 Oct, [facility] [id number] [place] [address] 20443- 3789 Oct, [facility] [id number] [place] [address] 82135- 2521 Oct, [facility] [id number] [place] [address] 47843- 4571 Sep, Dorsalgia, unspecified M54.9 [facility] [id number] [place] [address] 88460- 8613 Sep, [facility] [id number] [place] [address] 94163- 3919 Sep, [facility] [id number] [place] [address] 37448- 7409 Sep, Falling R29.6 ; Essential hypertension I10 ; Chronic obstructive pulmonary disease, unspecified COPD type J44.9 and BMI 40.0-44.9, adult Z68.41 [facility] [id number] [place] [address] 23436- 0676 Sep, [facility] [id number] [place] [address] 45355- 8839 Sep, [facility] [id number] [place] [address] 88756- 3591 Sep, [facility] [id number] [place] [address] 45776- 1963 Sep, Mild intermittent asthma without complication J45.20 [facility] [id number] [place] [address] 90006- 2140 Sep, [facility] [id number] [place] [address] 30153- 6523 Sep, [facility] [id number] [place] [address] 16797- 9941 Sep, [facility] [address] [facility] [id number] [address]- 1594 18 Sep, 2017 [facility] [place] [id number] [place] [address] 56429- 3835 18 Sep, 2017 [facility] [place] [id number], [place] [address]- 4802 15 Sep, 2017 [facility] [id number] [place] [address], [place] [address]- 7841 15 Sep, 2017 Essential hypertension I10 [facility] [address] [facility] [id number] [place] [address], [place] [address]- 4622 15 Sep, 2017 [facility] [id number] [place] [address] 92344- 5148 15 Sep, 2017 [facility] [id number] [place] [address] 43657- 0749 15 Sep, 2017 [facility] [address], [place] [address]- 4715 14 Sep, 2017 [facility] [id number] [place] [address] 28522- 8722 14 Sep, 2017 [facility] [address], [place] [address]- 8808 14 Sep, 2017 [facility] [address], [place] [address]- 5502 13 Sep, 2017 [facility] [id number], [place] [address]- 9101 13 Sep, 2017 [facility] [id number], [place] [address]- 6099 13 Sep, 2017 [facility] [address], [place] [address]- 8931 12 Sep, 2017 [facility] [address], [place] [address]- 4442 05 Sep, 2017 Mild intermittent asthma without complication J45.20 [facility] [id number], [place] [address]- 6340 August, Essential hypertension I10 [facility] [id number] [place] [address] 48289- 4689 August, BMI 40.0-44.9, adult Z68.41 ; Dorsalgia, unspecified M54.9 ; Allergic state, initial encounter T78.40XA ; Mild intermittent asthma without complication J45.20 and 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 [facility] [id number] [place] [address] 37498- 2324 August, [facility] [id number] [place] [address] 67666- 7105 August, [facility] [id number] [place] [address] 08909- 6384 August, [facility] [id number] [place] [address] 61913- 5943 August, Reactive depression F32.9 [facility] [id number] [place] [address], [place] [address]- 6521 August, [facility] [id number] [place] [address] 49872- 7388 August, [facility] [id number] [place] [address] 15067- 9920 August, [facility] [id number] [place] [address] 28197- 5623 August, [facility] [id number], [place] [address]- 0718 August, [facility] [id number] [place] [address], [place] [address]- 9034 August, [facility] [id number] [place] [address] 08892- 1405 August, [facility] [id number] [place] [address] 84032- 4836 August, Muscle spasms of both lower extremities M62.838 ; Essential hypertension I10 and Reactive depression F32.9 [facility] [id number] [place] [address] 18665- 6170 August, [facility] [address], [place] [address]- 5393 Jul, [facility] [id number] [place] [address] 40225- 4127 Jul, [facility] [id number] [place] [address] 74623- 2224 Jul, [facility] [id number] [place] [address] 66132- 3011 Jul, [facility] [id number] [place] [address] 59290- 4605 Jul, [facility] [id number] [place] [address] 54221- 7657 Jul, [facility] [address], [place] [address]- 4899 Jul, [facility] [id number] [place] [address] 01227- 8434 Jul, [facility] [address], [place] [address]- 0720 Jul, Essential hypertension I10 ; Other chronic pain G89.29 ; Dorsalgia, unspecified M54.9 ; Reactive depression F32.9 ; Mild intermittent asthma without complication J45.20 ; Allergic state, initial encounter T78.40XA and Muscle spasms of both lower extremities M62.838 IMMUNIZATIONS No Known Immunizations SOCIAL HISTORY Never Assessed REASON FOR VISIT Help with Short term memory issues confussed etc. PLAN OF CARE VITAL SIGNS MEDICATIONS Unknown [...]
--- OUTSIDE RECORDS SUMMARY | 2018-04-06 07:56 | XMS REPORT ---
Author Author ROSALINA GRAHAM [facility] Address [address] [place] [address] Care Team Providers Care Senior Litigation Paralegal Name Role Phone ROSALINA GRAHAM Unavailable PROBLEMS Type Condition ICD9-CM Code BNT73-OH Code Onset Dates Condition Status SNOMED Code Problem Reactive depression F32.9 Active 37146638 Problem Generalized anxiety disorder F41.1 Active 67142926 Problem Severe episode of recurrent major depressive disorder, without psychotic features F33.2 Active 83913032 Problem Environmental allergies Z91.09 Active 229301089 Problem Moderate persistent asthma without complication J45.40 Active 202587619 Problem PTSD (post-traumatic stress disorder) F43.10 Active 00422669 Problem Falling R29.6 Active 297240162 Problem Cervical disc disease with myelopathy M50.00 Active 13425739 Problem Panic disorder F41.0 Active 637394790 Problem Essential hypertension I10 Active 43241829 Problem Dorsalgia, unspecified M54.9 Active 610712923 Problem Other chronic pain G89.29 Active 97621282 Problem Allergic state, initial encounter T78.40XA Active 552587691 Problem Muscle spasms of both lower extremities M62.838 Active 501641562 ALLERGIES No Information ENCOUNTERS Encounter Location Date Diagnosis [facility] [id number] [address] Mar, [facility] [address], [place] [address] Feb, [facility] [id number] [place] [address] 84695- 1781 Feb, [facility] [id number] [address] Jan, [facility] [id number] [place] [address] 14490- 6540 Jan, [facility] [address], [place] [address] 1239 Jan, [facility] [id number] [place] [address] 48554- 5802 Jan, [facility] [address] [address] 8[address] Jan, Cervical disc disease with myelopathy M50.00 [facility] [id number] [place] [address] 625286- 9551 Jan, Severe episode of recurrent major depressive disorder, without psychotic features F33.2 ; Panic disorder F41.0 ; PTSD (post-traumatic stress disorder) F43.10 and BMI 40.0-44.9, adult Z68.41 [facility] [address] [address] Jan, Severe episode of recurrent major depressive disorder, without psychotic features F33.2 and Generalized anxiety disorder F41.1 [facility] [address] [address] 36[address] Jan, [facility] [address] [address] 0513 Jan, Cervical disc disease with myelopathy M50.00 [facility] [address] [address] 26[address] Jan, [facility] [address], [place] [address] 4713 Jan, [facility] [address] [address] 3[address] Jan, [facility] [address] [address] 8[address] Jan, [facility] [address] [address] 4[address] Jan, [facility] [address] [address] Jan, Environmental allergies Z91.09 and BMI 40.0-44.9, adult Z68.41 [facility] [address] [address]- [address] Jan, [facility] [address] [address]- [address] Jan, [facility] [address] [address]- 9920 Jan, Severe episode of recurrent major depressive disorder, without psychotic features F33.2 [place] [address] [address]- [address] Dec, Severe episode of recurrent major depressive disorder, without psychotic features F33.2 [place] [address] [address]- [address] Dec, Encounter for immunization Z23 [facility] [address] [address]- [address]367 Dec, [facility] [address] [address]- 4661 24 Dec, 2017 Severe episode of recurrent major depressive disorder, without psychotic features F33.2 ; PTSD (post-traumatic stress disorder) F43.10 ; Panic disorder F41.0 and BMI 40.0-44.9, adult Z68.41 [place] [id number] [place] [address] 55111- 1713 Dec, [facility] [address] [address]- 3276 Dec, [facility] [address] [address]- 7643 19 Dec, 2017 Essential hypertension I10 [facility] [address] [address]- 9491 14 Dec, 2017 [facility] [address] [address]- 4905 Dec, [facility] [id number] [place] [address] 11830- 0282 Dec, BMI 40.0-44.9, adult Z68.41 ; Severe episode of recurrent major depressive disorder, without psychotic features F33.2 ; PTSD (post- traumatic stress disorder) F43.10 and Panic disorder F41.0 [facility] [id number] [place] [address] 92451- 7832 Dec, [facility] [id number] [place] [address] 23996- 7354 Dec, [place] [id number] [place] [address] 88247- 6148 Dec, Essential hypertension I10 [place] [id number] [place] [address] 38228- 6946 Dec, Severe episode of recurrent major depressive disorder, without psychotic features F33.2 [place] [id number] [place] [address] 82024- 1034 Dec, Severe episode of recurrent major depressive disorder, without psychotic features F33.2 and Generalized anxiety disorder F41.1 [place] [id number] [place] [address] 99633- 7118 Nov, Cervical disc disease with myelopathy M50.00 [place] [id number] [place] [address] 07457- 7815 Nov, Cervical disc disease with myelopathy M50.00 ; Moderate persistent asthma without complication J45.40 and BMI 40.0-44.9, adult Z68.41 [place] [id number] [place] [address] 36026- 0073 Nov, [place] [id number] [place] [address] 26353- 2367 Nov, [facility] [id number] [place] [address] 20130- 2286 Nov, [facility] [address] [address]- 3181 Nov, [facility] [address], [place] [address]- [address] Nov, [facility] [address], [place] [address]- 0901 Nov, [facility] [id number] [place] [address] 16226- 9549 Nov, [facility] [id number] [place] [address] 06336- 0383 Nov, [facility] [id number] [place] [address] 36931- 7788 Nov, [facility] [address] [address]- 9634 Nov, Severe episode of recurrent major depressive disorder, without psychotic features F33.2 ; PTSD (post-traumatic stress disorder) F43.10 ; Panic disorder F41.0 and BMI 40.0-44.9, adult Z68.41 [facility] [address] [address]- 4690 Nov, [facility] [address], [place] [address]- 2783 Nov, Essential hypertension I10 [facility] [id number] [place] [address] 41514- 8632 Nov, Severe episode of recurrent major depressive disorder, without psychotic features F33.2 [facility] [address] [address]- 7542 Nov, Acute pain of left knee M25.562 [facility] [address] [address]- 3599 Nov, Severe episode of recurrent major depressive disorder, without psychotic features F33.2 ; PTSD (post-traumatic stress disorder) F43.10 ; Panic disorder F41.0 and BMI 40.0-44.9, adult Z68.41 [facility] [address] [place] [address]- 2955 Oct, [facility] [address] [place] [address]- 5311 Oct, [facility] [address] [place] [address]- 0250 Oct, [facility] [id number] [place] [address], [place] [address]- 7733 Oct, [facility] [id number] [place] [address]- 2771 Oct, Dorsalgia, unspecified M54.9 [facility] [id number] [place] [address]- 4972 Oct, Severe episode of recurrent major depressive disorder, without psychotic features F33.2 and Generalized anxiety disorder F41.1 [facility] [address] [place] [address]- 1061 Oct, [facility] [address] [place] [address]- 9643 Oct, [facility] [address] [place] [address]- 2244 Oct, [facility] [address] [address]- 5180 Oct, [facility] [address], [place] [address]- 1731 Oct, [facility] [address] [address]- 7761 Oct, [facility] [id number] [address]- 4513 Oct, [facility] [address] [place] [address]- 5993 Oct, [facility] [id number] [place] [address] 77413- 2847 Sep, Dorsalgia, unspecified M54.9 [facility] [id number] [place] [address] 91745- 7804 Sep, [facility] [id number] [place] [address] 11048- 0999 Sep, [facility] [id number] [place] [address] 78940- 4770 Sep, Falling R29.6 ; Essential hypertension I10 ; Chronic obstructive pulmonary disease, unspecified COPD type J44.9 and BMI 40.0-44.9, adult Z68.41 [facility] [id number] [place] [address] 81043- 3208 Sep, [facility] [id number] [place] [address] 84342- 4842 Sep, [facility] [id number] [place] [address] 89280- 0818 Sep, [facility] [id number] [place] [address] 60956- 8667 Sep, Mild intermittent asthma without complication J45.20 [facility] [id number] [place] [address] 23650- 5112 Sep, [facility] [id number] [place] [address] 40813- 5832 Sep, [facility] [id number] [place] [address] 72040- 7253 Sep, [facility] [id number] [place] [address] 28861- 4327 Sep, [facility] [id number] [place] [address] 05613- 8908 Sep, [facility] [id number] [place] [address] 87913- 1495 Sep, [facility] [address], [place] [address]- 4328 15 Sep, 2017 Essential hypertension I10 [facility] [address] [address]- 6834 15 Sep, 2017 [facility] [address], [place] [address]- 3768 15 Sep, 2017 [facility] [id number] [place] [address] 40515- 0247 15 Sep, 2017 [facility] [address] [address]- 9972 14 Sep, 2017 [facility] [address] [address]- 4603 14 Sep, 2017 [facility] [id number] [place] [address] 00256- 9073 14 Sep, 2017 [facility] [id number] [place] [address] 07885- 7507 13 Sep, 2017 [facility] [address] [address]- 9801 Sep, [facility] [address], [place] [address]- 9436 Sep, [facility] [address], [place] [address]- 8929 Sep, [facility] [address], [place] [address]- 2591 05 Sep, 2017 Mild intermittent asthma without complication J45.20 [facility] [address], [place] [address]- 3657 August, Essential hypertension I10 [facility] [address], [place] [address]- 9483 August, BMI 40.0-44.9, adult Z68.41 ; Dorsalgia, unspecified M54.9 ; Allergic state, initial encounter T78.40XA ; Mild intermittent asthma without complication J45.20 and 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 [facility] [id number] [place] [address] 93800- 8476 August, [facility] [id number] [place] [address] 18258- 8947 August, [facility] [id number] [place] [address] 01281- 7858 August, [facility] [id number] [place] [address] 68872- 2928 August, Reactive depression F32.9 [facility] [address] [address]- 1175 August, [facility] [id number] [place] [address] 10727- 4889 August, [facility] [id number] [place] [address] 62031- 8020 August, [facility] [id number] [place] [address] 36829- 0675 August, [facility] [id number] [place] [address] 99661- 5291 August, [facility] [id number] [place] [address] 91154- 6195 August, [facility] [id number] [place] [address] 33340- 8532 August, [facility] [id number] [place] [address] 16581- 6116 August, Muscle spasms of both lower extremities M62.838 ; Essential hypertension I10 and Reactive depression F32.9 [facility] [id number] [place] [address] 44074- 2140 August, [facility] [id number] [place] [address] 30344- 0272 Jul, [facility] [id number] [address]- 5308 Jul, [facility] [address], [place] [address]- 5118 Jul, [facility] [address], [place] [address]- 9297 Jul, [facility] [address], [place] [address]- 2849 Jul, [facility] [address], [place] [address]- 6471 Jul, [facility] [address] [address]- 2246 Jul, [facility] [address] [address]- 0618 Jul, [facility] [address], [place] [address]- 0123 Jul, Essential hypertension I10 ; Other chronic pain G89.29 ; Dorsalgia, unspecified M54.9 ; Reactive depression F32.9 ; Mild intermittent asthma without complication J45.20 ; Allergic state, initial encounter T78.40XA and Muscle spasms of both lower extremities M62.838 IMMUNIZATIONS No Known Immunizations SOCIAL HISTORY Never Assessed REASON FOR VISIT Re:RE:Changing Soma PLAN OF CARE VITAL SIGNS MEDICATIONS Unknown [...]
--- OUTSIDE RECORDS SUMMARY | 2018-04-06 07:56 | XMS REPORT ---
Author Author ROSALINA GRAHAM [facility] Address [address] [place] [address] Care Team Providers Care Reed Cleaner Name Role Phone ROSALINA GRAHAM Unavailable PROBLEMS Type Condition ICD9-CM Code VCQ66-XB Code Onset Dates Condition Status SNOMED Code Problem Reactive depression F32.9 Active 73234204 Problem Generalized anxiety disorder F41.1 Active 64856892 Problem Severe episode of recurrent major depressive disorder, without psychotic features F33.2 Active 59801859 Problem Environmental allergies Z91.09 Active 279616896 Problem Moderate persistent asthma without complication J45.40 Active 612247770 Problem PTSD (post-traumatic stress disorder) F43.10 Active 86117849 Problem Falling R29.6 Active 307680818 Problem Cervical disc disease with myelopathy M50.00 Active 92382736 Problem Panic disorder F41.0 Active 557542641 Problem Essential hypertension I10 Active 76830208 Problem Dorsalgia, unspecified M54.9 Active 365768806 Problem Other chronic pain G89.29 Active 84079070 Problem Allergic state, initial encounter T78.40XA Active 647655412 Problem Muscle spasms of both lower extremities M62.838 Active 450557314 ALLERGIES No Information ENCOUNTERS Encounter Location Date Diagnosis [facility] [id number] [address] Mar, [facility] [id number] [place] [address] 75226- 5103 Feb, [facility] [id number] [place] [address] 92959- 8764 Feb, [facility] [id number] [address] 87[address] Jan, Severe episode of recurrent major depressive disorder, without psychotic features F33.2 [facility] [id number], [place] [address] 4[address] Jan, [facility] [id number] [place] [address] 12120- 3701 Jan, Environmental allergies Z91.09 [facility] [address] [address] 7556 Jan, [facility] [id number] [place] [address] 07942- 0262 Jan, [facility] [id number] [place] [address] 59641- 1920 Jan, [facility] [id number] [place] [address] 96212- 8955 Jan, [facility] [id number] [place] [address] 89758- 9709 Jan, [facility] [id number] [place] [address] 13044- 0969 Jan, Cervical disc disease with myelopathy M50.00 [facility] [address] [address] 7246 Jan, Severe episode of recurrent major depressive disorder, without psychotic features F33.2 ; Panic disorder F41.0 ; PTSD (post-traumatic stress disorder) F43.10 and BMI 40.0-44.9, adult Z68.41 [facility] [address] [address] 8947 Jan, Severe episode of recurrent major depressive disorder, without psychotic features F33.2 and Generalized anxiety disorder F41.1 [facility] [address] [address] 5[address] Jan, [facility] [id number] [place] [address] 15797- 3528 Jan, Cervical disc disease with myelopathy M50.00 [facility] [id number] [place] [address] 72075- 0135 Jan, [facility] [address] [address] 8160 Jan, [facility] [id number] [place] [address] 86111- 9740 Jan, [facility] [id number] [place] [address] 11301- 4254 Jan, [facility] [id number] [place] [address] 75447- 9869 Jan, [facility] [id number] [place] [address] 62362- 0604 Jan, Environmental allergies Z91.09 and BMI 40.0-44.9, adult Z68.41 [facility] [id number] [place] [address] 77800- 7292 Jan, [facility] [id number] [place] [address] 94843- 0083 Jan, [facility] [id number] [place] [address] 21370- 1171 Jan, Severe episode of recurrent major depressive disorder, without psychotic features F33.2 [facility] [address] [address] 0102 Dec, Severe episode of recurrent major depressive disorder, without psychotic features F33.2 [facility] [id number] [place] [address] 52722- 9704 Dec, Encounter for immunization Z23 [facility] [id number], [place] [address] 7146 Dec, [facility] [id number] [place] [address] 70142- 1138 Dec, Severe episode of recurrent major depressive disorder, without psychotic features F33.2 ; PTSD (post-traumatic stress disorder) F43.10 ; Panic disorder F41.0 and BMI 40.0-44.9, adult Z68.41 [facility] [address], [place] [address]- 1646 23 Dec, 2017 [facility] [id number] [place] [address] 29056- 5042 Dec, [facility] [id number] [place] [address] 55955- 2542 Dec, 2017 Essential hypertension I10 [facility] [id number] [place] [address] 59791- 3283 14 Dec, 2017 [facility] [id number] [place] [address] 69646- 2369 06 Dec, 2017 [facility] [id number] [place] [address] 86087- 0774 05 Dec, 2017 BMI 40.0-44.9, adult Z68.41 ; Severe episode of recurrent major depressive disorder, without psychotic features F33.2 ; PTSD (post- traumatic stress disorder) F43.10 and Panic disorder F41.0 [facility] [id number] [place] [address] 33375- 5856 05 Dec, 2017 [facility] [id number] [place] [address] 55351- 7634 Dec, 2017 [facility] [id number] [place] [address] 06758- 5499 Dec, Essential hypertension I10 [facility] [id number] [place] [address] 82321- 5596 Dec, 2017 Severe episode of recurrent major depressive disorder, without psychotic features F33.2 [facility] [id number] [place] [address] 30186- 2886 Dec, Severe episode of recurrent major depressive disorder, without psychotic features F33.2 and Generalized anxiety disorder F41.1 [facility] [id number] [place] [address] 58077- 2486 Nov, Cervical disc disease with myelopathy M50.00 [facility] [id number] [place] [address] 75029- 7206 Nov, Cervical disc disease with myelopathy M50.00 ; Moderate persistent asthma without complication J45.40 and BMI 40.0-44.9, adult Z68.41 [facility] [id number] [place] [address] 66433- 1821 Nov, [facility] [id number] [place] [address] 86998- 1471 Nov, [facility] [id number] [place] [address] 92065- 7983 Nov, [facility] [id number] [place] [address] 62555- 8217 Nov, [facility] [id number] [place] [address] 43267- 1513 Nov, [facility] [id number] [place] [address] 68061- 1604 Nov, [facility] [id number] [place] [address] 77961- 7516 Nov, [facility] [id number] [place] [address] 79118- 2096 Nov, [facility] [id number] [place] [address] 55724- 1904 Nov, [facility] [id number] [place] [address] 22870- 7736 Nov, Severe episode of recurrent major depressive disorder, without psychotic features F33.2 ; PTSD (post-traumatic stress disorder) F43.10 ; Panic disorder F41.0 and BMI 40.0-44.9, adult Z68.41 [facility] [id number] [place] [address] 32670- 9732 Nov, [facility] [id number] [place] [address] 84060- 8518 Nov, Essential hypertension I10 [facility] [id number], [place] [address]- 5796 Nov, Severe episode of recurrent major depressive disorder, without psychotic features F33.2 [facility] [id number] [place] [address] 07356- 9296 Nov, Acute pain of left knee M25.562 [facility] [id number] [place] [address] 38819- 7601 Nov, Severe episode of recurrent major depressive disorder, without psychotic features F33.2 ; PTSD (post-traumatic stress disorder) F43.10 ; Panic disorder F41.0 and BMI 40.0-44.9, adult Z68.41 [facility] [id number] [place] [address] 40612- 6947 Oct, [facility] [id number] [place] [address] 16871- 0224 Oct, [facility] [id number] [place] [address] 40037- 0194 Oct, [facility] [id number] [place] [address] 61293- 7379 Oct, [facility] [id number] [place] [address] 95242- 8295 Oct, Dorsalgia, unspecified M54.9 [facility] [id number] [address]- 9138 Oct, Severe episode of recurrent major depressive disorder, without psychotic features F33.2 and Generalized anxiety disorder F41.1 [facility] [address], [place] [address]- 6635 Oct, [facility] [id number] [place] [address] 28061- 2479 Oct, [facility] [id number] [address]- 5757 Oct, [facility] [id number] [place] [address] 58057- 1295 Oct, [facility] [address], [place] [address]- 3080 Oct, [facility] [id number] [place] [address] 61716- 4838 Oct, [facility] [id number] [place] [address] 08857- 1109 Oct, [facility] [id number] [place] [address] 42296- 7667 Oct, [facility] [id number] [place] [address] 86378- 2870 Sep, Dorsalgia, unspecified M54.9 [facility] [id number] [place] [address] 98116- 7709 Sep, [facility] [id number] [place] [address] 56089- 9363 Sep, [facility] [id number] [place] [address] 14093- 3960 Sep, Falling R29.6 ; Essential hypertension I10 ; Chronic obstructive pulmonary disease, unspecified COPD type J44.9 and BMI 40.0-44.9, adult Z68.41 [facility] [address], [place] [address]- 3114 Sep, [facility] [id number] [place] [address] 17450- 7832 Sep, [facility] [address], [place] [address]- 5191 Sep, [facility] [id number] [place] [address] 72200- 6573 Sep, Mild intermittent asthma without complication J45.20 [facility] [address], [place] [address]- 3813 Sep, [facility] [id number] [address]- 6749 19 Sep, 2017 [facility] [place] [facility] [address] [id number] [place] [address]- 3487 19 Sep, 2017 [facility] [place] [facility] [address] [id number] [place] [address]- 1661 18 Sep, 2017 [facility] [place] [facility] [address] [id number] [place] [address]- 8504 18 Sep, 2017 [facility] [place] [facility] [address] [id number] [place] [address]- 7198 15 Sep, 2017 [facility] [place] [facility] [address] [id number] [place] [address]- 7148 15 Sep, 2017 Essential hypertension I10 [facility] [place] [facility] [address] [id number] [place] [address]- 5145 15 Sep, 2017 [facility] [place] [facility] [id number] [address]- 8679 15 Sep, 2017 [facility] [place] [facility] [address] [id number] [place] [address]- 2443 15 Sep, 2017 [facility] [place] [facility] [id number] [address]- 3392 14 Sep, 2017 [facility] [place] [facility] [address] [facility] [id number] [place] [address]- 0919 14 Sep, 2017 [facility] [place] [facility] [address] [id number] [place] [address]- 9532 14 Sep, 2017 [facility] [place] [facility] [address] [id number] [place] [address]- 3919 13 Sep, 2017 [facility] [place] [facility] [address] [facility] [id number] [place] [address]- 3057 13 Sep, 2017 [facility] [place] [facility] [address] [facility] [id number] [place] [address]- 8809 13 Sep, 2017 [facility] [place] [facility] [address] [facility] [id number] [place] [address]- 5186 Sep, [facility] [address] [address]- 1366 Sep, Mild intermittent asthma without complication J45.20 [facility] [id number] [place] [address] 27159- 3925 August, Essential hypertension I10 [facility] [id number] [place] [address] 91682- 9498 August, BMI 40.0-44.9, adult Z68.41 ; Dorsalgia, unspecified M54.9 ; Allergic state, initial encounter T78.40XA ; Mild intermittent asthma without complication J45.20 and 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 [facility] [id number] [place] [address] 74164- 0018 August, [facility] [id number] [place] [address] 60004- 9241 August, [facility] [id number] [place] [address] 77164- 5703 August, [facility] [id number] [place] [address] 25173- 3312 August, Reactive depression F32.9 [facility] [id number] [place] [address] 83872- 8826 August, [facility] [address], [place] [address]- 8356 August, [facility] [id number], [place] [address]- 0597 August, [facility] [id number] [place] [address] 97837- 3009 August, [facility] [id number] [place] [address] 18794- 5772 August, [facility] [address], [place] [address]- 5065 August, [facility] [address], [place] [address]- 6130 August, [facility] [id number] [place] [address] 10168- 4129 August, Muscle spasms of both lower extremities M62.838 ; Essential hypertension I10 and Reactive depression F32.9 [facility] [id number] [place] [address] 95459- 0626 August, [facility] [id number] [place] [address] 28419- 9338 Jul, [facility] [id number] [place] [address] 14619- 7553 Jul, [facility] [id number] [place] [address] 79597- 4651 Jul, [facility] [id number] [place] [address] 30039- 1407 Jul, [facility] [id number] [place] [address] 39522- 7522 Jul, [facility] [id number] [place] [address] 75397- 0692 Jul, [facility] [id number] [place] [address] 80879- 7664 Jul, [facility] [id number] [place] [address] 08468- 4225 Jul, [facility] [id number] [place] [address] 53230- 2554 Jul, Essential hypertension I10 ; Other chronic pain G89.29 ; Dorsalgia, unspecified M54.9 ; Reactive depression F32.9 ; Mild intermittent asthma without complication J45.20 ; Allergic state, initial encounter T78.40XA and Muscle spasms of both lower extremities M62.838 IMMUNIZATIONS No Known Immunizations SOCIAL HISTORY Never Assessed REASON FOR VISIT Controlled Med Refill 02/15 PLAN OF CARE VITAL SIGNS MEDICATIONS Medication [...]
--- OUTSIDE RECORDS SUMMARY | 2018-04-06 07:57 | XMS REPORT ---
Author Author ROSALINA GRAHAM [facility] Address [address] [place] [address] Care Team Providers Care Payroll Consultant Name Role Phone ROSALINA GRAHAM Unavailable PROBLEMS Type Condition ICD9-CM Code IFQ85-LB Code Onset Dates Condition Status SNOMED Code Problem Reactive depression F32.9 Active 23942128 Problem Generalized anxiety disorder F41.1 Active 49526263 Problem Severe episode of recurrent major depressive disorder, without psychotic features F33.2 Active 39422918 Problem Environmental allergies Z91.09 Active 668689896 Problem Moderate persistent asthma without complication J45.40 Active 291981204 Problem PTSD (post-traumatic stress disorder) F43.10 Active 90173708 Problem Falling R29.6 Active 376505125 Problem Cervical disc disease with myelopathy M50.00 Active 09801611 Problem Panic disorder F41.0 Active 121298413 Problem Essential hypertension I10 Active 56581623 Problem Dorsalgia, unspecified M54.9 Active 476232682 Problem Other chronic pain G89.29 Active 68062573 Problem Allergic state, initial encounter T78.40XA Active 264924206 Problem Muscle spasms of both lower extremities M62.838 Active 249381526 ALLERGIES No Information ENCOUNTERS Encounter Location Date Diagnosis [facility] [id number] [address] Mar, [facility] [address] [address] Feb, [facility] [id number] [place] [address] 49568- 1965 Feb, [facility] [id number] [address] Jan, [facility] [id number] [place] [address] 31167- 9077 Jan, [facility] [address] [address] 6[address] Jan, [facility] [id number] [place] [address] 58943- 6644 Jan, [facility] [address] [address] 8687 Jan, Cervical disc disease with myelopathy M50.00 [facility] [id number] [place] [address] 128400- 9702 Jan, Severe episode of recurrent major depressive disorder, without psychotic features F33.2 ; Panic disorder F41.0 ; PTSD (post-traumatic stress disorder) F43.10 and BMI 40.0-44.9, adult Z68.41 [facility] [address] [address] Jan, Severe episode of recurrent major depressive disorder, without psychotic features F33.2 and Generalized anxiety disorder F41.1 [facility] [address] [address] 5713 Jan, [facility] [address] [address] 6441 Jan, Cervical disc disease with myelopathy M50.00 [facility] [address] [address] 8667 Jan, [facility] [address] [address] 5[address] Jan, [facility] [address] [address] 8542 Jan, [facility] [address] [address] 8507 Jan, [facility] [address] [address] 1590 Jan, [facility] [address] [address] Jan, Environmental allergies Z91.09 and BMI 40.0-44.9, adult Z68.41 [facility] [address] [address]- [address]43 Jan, [facility] [address] [address]- [address] Jan, [facility] [address] [address]- 7316 Jan, Severe episode of recurrent major depressive disorder, without psychotic features F33.2 [address] [address] [address]- [address]88 Dec, Severe episode of recurrent major depressive disorder, without psychotic features F33.2 [place] [address] [address]- [address] Dec, Encounter for immunization Z23 [facility] [address] [address]- 1181 Dec, [facility] [address] [address]- 1258 24 Dec, 2017 Severe episode of recurrent major depressive disorder, without psychotic features F33.2 ; PTSD (post-traumatic stress disorder) F43.10 ; Panic disorder F41.0 and BMI 40.0-44.9, adult Z68.41 [place] [facility] [id number] [place] [address] 89960- 8583 Dec, [facility] [address] [address]- 6529 Dec, [facility] [address] [address]- 5495 19 Dec, 2017 Essential hypertension I10 [facility] [address] [address]- 7880 14 Dec, 2017 [facility] [address] 07[address]- 5446 Dec, [facility] [id number] [place] [address] 78217- 6719 Dec, BMI 40.0-44.9, adult Z68.41 ; Severe episode of recurrent major depressive disorder, without psychotic features F33.2 ; PTSD (post- traumatic stress disorder) F43.10 and Panic disorder F41.0 [facility] [id number] [place] [address] 51451- 7243 Dec, [facility] [id number] [place] [address] 30219- 7723 Dec, [place] [id number] [place] [address] 18415- 1876 Dec, Essential hypertension I10 [place] [id number] [place] [address] 88274- 7299 Dec, Severe episode of recurrent major depressive disorder, without psychotic features F33.2 [place] [id number] [place] [address] 23393- 5193 Dec, Severe episode of recurrent major depressive disorder, without psychotic features F33.2 and Generalized anxiety disorder F41.1 [place] [facility] [id number] [place] [address] 24047- 4819 Nov, Cervical disc disease with myelopathy M50.00 [place] [facility] [id number] [place] [address] 66678- 5433 Nov, Cervical disc disease with myelopathy M50.00 ; Moderate persistent asthma without complication J45.40 and BMI 40.0-44.9, adult Z68.41 [place] [facility] [id number] [place] [address] 80463- 5770 Nov, [place] [facility] [id number] [place] [address] 79400- 2259 Nov, [facility] [id number] [place] [address] 35973- 0153 Nov, [facility] [address] [address]- 9411 Nov, [facility] [address] [address]- 4675 Nov, [facility] [address] [address]- 8338 Nov, [facility] [id number] [place] [address] 23078- 9916 Nov, [facility] [id number] [place] [address] 74288- 7915 Nov, [facility] [id number] [place] [address] 42125- 4719 Nov, [facility] [address] [address]- 5569 Nov, Severe episode of recurrent major depressive disorder, without psychotic features F33.2 ; PTSD (post-traumatic stress disorder) F43.10 ; Panic disorder F41.0 and BMI 40.0-44.9, adult Z68.41 [facility] [address] [address]- 7183 Nov, [facility] [address] [address]- 9736 Nov, Essential hypertension I10 [facility] [id number] [place] [address] 27802- 9097 Nov, Severe episode of recurrent major depressive disorder, without psychotic features F33.2 [facility] [address] [address]- 7628 Nov, Acute pain of left knee M25.562 [facility] [address] [address]- 2992 Nov, Severe episode of recurrent major depressive disorder, without psychotic features F33.2 ; PTSD (post-traumatic stress disorder) F43.10 ; Panic disorder F41.0 and BMI 40.0-44.9, adult Z68.41 [facility] [address] [place] [address]- 1547 Oct, [facility] [address] [place] [address]- 7712 Oct, [facility] [address] [place] [address]- 7871 Oct, [facility] [id number] [place] [address], [place] [address]- 1928 Oct, [facility] [id number] [place] [address]- 8493 Oct, Dorsalgia, unspecified M54.9 [facility] [id number] [place] [address]- 0427 Oct, Severe episode of recurrent major depressive disorder, without psychotic features F33.2 and Generalized anxiety disorder F41.1 [facility] [address] [place] [address]- 3665 Oct, [facility] [id number] [place] [address]- 0695 Oct, [facility] [id number] [place] [address]- 0465 Oct, [facility] [address] [address]- 3474 Oct, [facility] [address] [address]- 1483 Oct, [facility] [address] [address]- 5780 Oct, [facility] [id number] [address]- 7184 Oct, [facility] [address] [place] [address]- 7479 Oct, [facility] [id number] [place] [address] 38729- 5157 Sep, Dorsalgia, unspecified M54.9 [facility] [id number] [place] [address] 02253- 5483 Sep, [facility] [id number] [place] [address] 03477- 5825 Sep, [facility] [id number] [place] [address] 20809- 8209 Sep, Falling R29.6 ; Essential hypertension I10 ; Chronic obstructive pulmonary disease, unspecified COPD type J44.9 and BMI 40.0-44.9, adult Z68.41 [facility] [id number] [place] [address] 77509- 6132 Sep, [facility] [id number] [place] [address] 49069- 8299 Sep, [facility] [id number] [place] [address] 18210- 9997 Sep, [facility] [id number] [place] [address] 79159- 0890 Sep, Mild intermittent asthma without complication J45.20 [facility] [id number] [place] [address] 97838- 7014 Sep, [facility] [id number] [place] [address] 00735- 5181 Sep, [facility] [id number] [place] [address] 19732- 0011 Sep, [facility] [id number] [place] [address] 58253- 7004 Sep, [facility] [id number] [place] [address] 15114- 8807 Sep, [facility] [id number] [place] [address] 08080- 0202 Sep, [facility] [address] [address]- 4911 15 Sep, 2017 Essential hypertension I10 [facility] [address] [address]- 8414 15 Sep, 2017 [facility] [address] [address]- 1888 15 Sep, 2017 [facility] [id number] [place] [address] 26956- 8645 15 Sep, 2017 [facility] [address] [address]- 9883 14 Sep, 2017 [facility] [address] [address]- 2974 14 Sep, 2017 [facility] [id number] [place] [address] 61528- 8526 14 Sep, 2017 [facility] [id number] [place] [address] 51269- 2651 13 Sep, 2017 [facility] [address] [address]- 7888 Sep, [facility] [address] [address]- 4935 Sep, [facility] [address] [address]- 5872 Sep, [facility] [address] [address]- 2443 05 Sep, 2017 Mild intermittent asthma without complication J45.20 [facility] [address] [address]- 4458 August, Essential hypertension I10 [facility] [address] [address]- 6200 August, BMI 40.0-44.9, adult Z68.41 ; Dorsalgia, unspecified M54.9 ; Allergic state, initial encounter T78.40XA ; Mild intermittent asthma without complication J45.20 and 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 [facility] [id number] [place] [address] 20261- 9625 August, [facility] [id number] [place] [address] 69685- 0740 August, [facility] [id number] [place] [address] 72234- 6591 August, [facility] [id number] [place] [address] 48870- 3333 August, Reactive depression F32.9 [facility] [address] 21863- 1142 August, [facility] [id number] [place] [address] 87494- 9766 August, [facility] [id number] [place] [address] 12538- 7587 August, [facility] [id number] [place] [address] 13416- 4554 August, [facility] [id number] [place] [address] 18288- 2786 August, [facility] [id number] [place] [address] 86890- 4552 August, [facility] [id number] [place] [address] 22606- 5987 August, [facility] [id number] [place] [address] 57511- 3607 August, Muscle spasms of both lower extremities M62.838 ; Essential hypertension I10 and Reactive depression F32.9 [facility] [id number] [place] [address] 76034- 9603 August, [facility] [id number] [place] [address] 81873- 1372 Jul, [facility] [id number] [address]- 2525 30 Jul, 2017 [facility] [address] [address]- 2533 Jul, [facility] [address] [address]- 6533 Jul, [facility] [address] [address]- 0969 Jul, [facility] [address] [address]- 6212 Jul, [facility] [address] [address]- 9283 Jul, [facility] [address] [address]- 7385 Jul, [facility] [address] [address]- 6181 Jul, Essential hypertension I10 ; Other chronic [...]
--- OUTSIDE RECORDS SUMMARY | 2018-04-06 07:57 | XMS REPORT ---
Author Author ROSALINA GRAHAM [facility] Address [address] [place] [address] Care Team Providers Care Wire Harness Assembler Name Role Phone ROSALINA GRAHAM Unavailable PROBLEMS Type Condition ICD9-CM Code BNM86-NS Code Onset Dates Condition Status SNOMED Code Problem Reactive depression F32.9 Active 32332597 Problem Generalized anxiety disorder F41.1 Active 66517866 Problem Severe episode of recurrent major depressive disorder, without psychotic features F33.2 Active 88590652 Problem Environmental allergies Z91.09 Active 712664990 Problem Moderate persistent asthma without complication J45.40 Active 223446013 Problem PTSD (post-traumatic stress disorder) F43.10 Active 14561761 Problem Falling R29.6 Active 619570996 Problem Cervical disc disease with myelopathy M50.00 Active 60138208 Problem Panic disorder F41.0 Active 403127227 Problem Essential hypertension I10 Active 23775862 Problem Dorsalgia, unspecified M54.9 Active 385771861 Problem Other chronic pain G89.29 Active 23004369 Problem Allergic state, initial encounter T78.40XA Active 777349456 Problem Muscle spasms of both lower extremities M62.838 Active 252083745 ALLERGIES No Information ENCOUNTERS Encounter Location Date Diagnosis [facility] [id number] [address] Mar, [facility] [address] [address] Feb, [facility] [id number] [place] [address]75- 2281 Feb, [facility] [id number] [address] Jan, [facility] [id number] [place] [address] 86225- 7151 Jan, [facility] [address] [address] Jan, [facility] [id number] [place] [address] 33218- 5725 Jan, [facility] [address] [address] Jan, Cervical disc disease with myelopathy M50.00 [facility] [id number] [place] [address] 854563- 3515 Jan, Severe episode of recurrent major depressive disorder, without psychotic features F33.2 ; Panic disorder F41.0 ; PTSD (post-traumatic stress disorder) F43.10 and BMI 40.0-44.9, adult Z68.41 [facility] [address] [address] Jan, Severe episode of recurrent major depressive disorder, without psychotic features F33.2 and Generalized anxiety disorder F41.1 [facility] [address] [address] Jan, [facility] [address] [address] 5673 Jan, Cervical disc disease with myelopathy M50.00 [facility] [address] [address] 4[address] Jan, [facility] [address] [address] 7886 Jan, [facility] [address] [address] 7872 Jan, [facility] [address] [address] 28[address] Jan, [facility] [address] [address] Jan, [facility] [address] [address] Jan, Environmental allergies Z91.09 and BMI 40.0-44.9, adult Z68.41 [facility] [address] [address]- [address] Jan, [facility] [address] [address]- 9363 Jan, [facility] [address] [address]- 3498 Jan, Severe episode of recurrent major depressive disorder, without psychotic features F33.2 [facility] [address] [address] Dec, Severe episode of recurrent major depressive disorder, without psychotic features F33.2 [facility] [address] [address]- [address]46 Dec, Encounter for immunization Z23 [facility] [address] [address]- [address]194 Dec, [facility] [address] [address]- 4324 24 Dec, 2017 Severe episode of recurrent major depressive disorder, without psychotic features F33.2 ; PTSD (post-traumatic stress disorder) F43.10 ; Panic disorder F41.0 and BMI 40.0-44.9, adult Z68.41 [facility] [id number] [place] [address] 09827- 2298 Dec, [facility] [address] [address]- 5565 Dec, [facility] [address] [address]- 8509 19 Dec, 2017 Essential hypertension I10 [facility] [address] 35[address]- 9461 14 Dec, 2017 [facility] [address] [address]- 2784 Dec, [facility] [id number] [place] [address] 92270- 9973 Dec, BMI 40.0-44.9, adult Z68.41 ; Severe episode of recurrent major depressive disorder, without psychotic features F33.2 ; PTSD (post- traumatic stress disorder) F43.10 and Panic disorder F41.0 [facility] [id number] [place] [address] 25344- 3062 Dec, [facility] [id number] [place] [address] 44651- 9706 Dec, [facility] [id number] [place] [address] 00175- 5506 Dec, Essential hypertension I10 [facility] [id number] [place] [address] 83304- 2344 Dec, Severe episode of recurrent major depressive disorder, without psychotic features F33.2 [facility] [id number] [place] [address] 47833- 8988 Dec, Severe episode of recurrent major depressive disorder, without psychotic features F33.2 and Generalized anxiety disorder F41.1 [facility] [id number] [place] [address] 93062- 1216 Nov, Cervical disc disease with myelopathy M50.00 [facility] [id number] [place] [address] 92767- 4522 Nov, Cervical disc disease with myelopathy M50.00 ; Moderate persistent asthma without complication J45.40 and BMI 40.0-44.9, adult Z68.41 [facility] [id number] [place] [address] 60889- 3494 Nov, [facility] [id number] [place] [address] 18437- 6247 Nov, [facility] [id number] [place] [address] 83765- 2400 Nov, [facility] [address] [address]- 9200 Nov, [facility] [address] [address]- 3184 Nov, [facility] [address] [address]- 8[address] Nov, [facility] [id number] [place] [address] 96499- 6522 Nov, [facility] [id number] [place] [address] 53002- 5770 Nov, [facility] [id number] [place] [address] 91653- 7166 Nov, [facility] [address] [address] 0845 Nov, Severe episode of recurrent major depressive disorder, without psychotic features F33.2 ; PTSD (post-traumatic stress disorder) F43.10 ; Panic disorder F41.0 and BMI 40.0-44.9, adult Z68.41 [facility] [address] [address]- 6624 Nov, [facility] [address] [address]- 1681 Nov, Essential hypertension I10 [facility] [id number] [place] [address] 70472- 6621 Nov, Severe episode of recurrent major depressive disorder, without psychotic features F33.2 [facility] [address] [address]- 9322 Nov, Acute pain of left knee M25.562 [facility] [address] [address]- 3090 Nov, Severe episode of recurrent major depressive disorder, without psychotic features F33.2 ; PTSD (post-traumatic stress disorder) F43.10 ; Panic disorder F41.0 and BMI 40.0-44.9, adult Z68.41 [facility] [address] [place] [address]- 3932 Oct, [facility] [address] [place] [address]- 4309 Oct, [facility] [address] [place] [address]- 9452 Oct, [facility] [id number] [place] [address], [place] [address]- 0528 Oct, [facility] [id number] [place] [address]- 9795 Oct, Dorsalgia, unspecified M54.9 [facility] [id number] [place] [address]- 0321 Oct, Severe episode of recurrent major depressive disorder, without psychotic features F33.2 and Generalized anxiety disorder F41.1 [facility] [address] [place] [address]- 7855 Oct, [facility] [address] [place] [address]- 8951 Oct, [facility] [address] [place] [address]- 7617 Oct, [facility] [address] [address]- 2199 Oct, [facility] [address] [address]- 7593 Oct, [facility] [address] [address]- 6787 Oct, [facility] [id number] [address]- 7508 Oct, [facility] [address] [place] [address]- 0186 Oct, [facility] [id number] [place] [address] 31117- 7931 Sep, Dorsalgia, unspecified M54.9 [facility] [id number] [place] [address] 63614- 8490 Sep, [facility] [id number] [place] [address] 33296- 5169 Sep, [facility] [id number] [place] [address] 69851- 2729 Sep, Falling R29.6 ; Essential hypertension I10 ; Chronic obstructive pulmonary disease, unspecified COPD type J44.9 and BMI 40.0-44.9, adult Z68.41 [facility] [id number] [place] [address] 14877- 4130 Sep, [facility] [id number] [place] [address] 98329- 5385 Sep, [facility] [id number] [place] [address] 82713- 6065 Sep, [facility] [id number] [place] [address] 66088- 6275 Sep, Mild intermittent asthma without complication J45.20 [facility] [id number] [place] [address] 89171- 5520 Sep, [facility] [id number] [place] [address] 02602- 9057 Sep, [facility] [id number] [place] [address] 01415- 7365 Sep, [facility] [id number] [place] [address] 26951- 1452 Sep, [facility] [id number] [place] [address] 84196- 6117 Sep, [facility] [id number] [place] [address] 94377- 0723 Sep, [facility] [address] [address]- 8212 15 Sep, 2017 Essential hypertension I10 [facility] [address] [address]- 4975 15 Sep, 2017 [facility] [address] [address]- 9573 15 Sep, 2017 [facility] [id number] [place] [address] 89578- 8981 15 Sep, 2017 [facility] [address] [address]- 7140 14 Sep, 2017 [facility] [address] [address]- 8233 14 Sep, 2017 [facility] [id number] [place] [address] 72307- 2000 14 Sep, 2017 [facility] [id number] [place] [address] 80005- 4042 13 Sep, 2017 [facility] [address] [address]- 2498 Sep, [facility] [address] [address]- 0617 Sep, [facility] [address] [address]- 5678 Sep, [facility] [address] [address]- 5475 05 Sep, 2017 Mild intermittent asthma without complication J45.20 [facility] [address] [address]- 6553 August, Essential hypertension I10 [facility] [address] [address]- 8129 August, BMI 40.0-44.9, adult Z68.41 ; Dorsalgia, unspecified M54.9 ; Allergic state, initial encounter T78.40XA ; Mild intermittent asthma without complication J45.20 and 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 [facility] [id number] [place] [address] 80756- 6664 August, [facility] [id number] [place] [address] 34625- 8688 August, [facility] [id number] [place] [address] 31707- 3040 August, [facility] [id number] [place] [address] 28753- 2439 August, Reactive depression F32.9 [facility] [address] [address]- 1881 August, [facility] [id number] [place] [address] 95269- 3440 August, [facility] [id number] [place] [address] 88539- 5862 August, [facility] [id number] [place] [address] 45158- 5137 August, [facility] [id number] [place] [address] 94463- 5794 August, [facility] [id number] [place] [address] 09019- 2565 August, [facility] [id number] [place] [address] 39090- 5422 August, [facility] [id number] [place] [address] 92788- 1560 August, Muscle spasms of both lower extremities M62.838 ; Essential hypertension I10 and Reactive depression F32.9 [facility] [id number] [place] [address] 22485- 6697 August, [facility] [id number] [place] [address] 10489- 0923 Jul, [facility] [id number] [address]- 7344 Jul, [facility] [address] [address]- 2969 Jul, [facility] [address] [address]- 7058 Jul, [facility] [address] 3324 Jul, [facility] [address] [address]- 3319 Jul, [facility] [address] [address]- 8987 Jul, [facility] [address] [address]- 9566 Jul, [facility] [address] [address]- 5198 Jul, Essential hypertension I10 ; Other chronic pain G89.29 ; Dorsalgia, unspecified M54.9 ; Reactive depression F32.9 ; Mild intermittent asthma without complication J45.20 ; Allergic state, initial encounter T78.40XA and Muscle spasms of both lower extremities M62.838 IMMUNIZATIONS No Known Immunizations SOCIAL HISTORY Never Assessed REASON FOR VISIT Changing Soma PLAN OF CARE VITAL SIGNS MEDICATIONS Medication Instructions Dosage Frequency Start Date End Date Duration Status Cyclobenzaprine HCl 10 mg Orally Three times a day 1 tablet as needed Jan, 20 days Active RESULTS No Results [...]
--- OUTSIDE RECORDS SUMMARY | 2018-04-06 07:57 | XMS REPORT ---
Author Author ROSALINA GRAHAM [facility] Address [address] [place] [address] Care Team Providers Care Freight Weigher Name Role Phone ROSALINA GRAHAM Unavailable PROBLEMS Type Condition ICD9-CM Code [id number] Code Onset Dates Condition Status SNOMED Code Problem Reactive depression F32.9 Active 92542970 Problem Generalized anxiety disorder F41.1 Active 23757093 Problem Severe episode of recurrent major depressive disorder, without psychotic features F33.2 Active 87331913 Problem Environmental allergies Z91.09 Active 846869330 Problem Moderate persistent asthma without complication J45.40 Active 983644691 Problem PTSD (post-traumatic stress disorder) F43.10 Active 64215598 Problem Falling R29.6 Active 781134458 Problem Cervical disc disease with myelopathy M50.00 Active 16335584 Problem Panic disorder F41.0 Active 165698723 Problem Essential hypertension I10 Active 43503560 Problem Dorsalgia, unspecified M54.9 Active 179097191 Problem Other chronic pain G89.29 Active 24568100 Problem Allergic state, initial encounter T78.40XA Active 980516977 Problem Muscle spasms of both lower extremities M62.838 Active 657301998 ALLERGIES No Information ENCOUNTERS Encounter Location Date Diagnosis [facility] [id number], [place] [address] Mar, [facility] [address], [place] [address] Feb, [facility] [id number] [place] [address]9067- 1464 Feb, [facility] [id number], [place] [address] Jan, [facility] [id number] [place] [address] 81775- 0377 Jan, [facility] [address], [place] [address] Jan, [facility] [id number] [place] [address] 11674- 0937 Jan, [facility] [address], [place] [address] Jan, Cervical disc disease with myelopathy M50.00 [facility] [id number] [place] [address] 261243- 0049 Jan, Severe episode of recurrent major depressive disorder, without psychotic features F33.2 ; Panic disorder F41.0 ; PTSD (post-traumatic stress disorder) F43.10 and BMI 40.0-44.9, adult Z68.41 [facility] [address], [place] [address] 97[address] Jan, Severe episode of recurrent major depressive disorder, without psychotic features F33.2 and Generalized anxiety disorder F41.1 [facility] [address], [place] [address] Jan, [facility] [address], [place] [address] 8[address] Jan, Cervical disc disease with myelopathy M50.00 [facility] [address], [place] [address] 67[address] Jan, [facility] [address], [place] [address] 95[address] Jan, [facility] [address], [place] [address] 0567 Jan, [facility] [address], [place] [address] Jan, [facility] [address], [place] [address] 7267 Jan, [facility] [address] [address] Jan, Environmental allergies Z91.09 and BMI 40.0-44.9, adult Z68.41 [facility] [address] [address]- [address] Jan, [facility] [address] [address]- [address] Jan, [facility] [address] [address]- 6863 Jan, Severe episode of recurrent major depressive disorder, without psychotic features F33.2 [address] [address]- [address]85 Dec, Severe episode of recurrent major depressive disorder, without psychotic features F33.2 [address] [address] [address]- [address] Dec, Encounter for immunization Z23 [facility] [address] [address]- 6604 Dec, [facility] [address] [address]- 7329 24 Dec, 2017 Severe episode of recurrent major depressive disorder, without psychotic features F33.2 ; PTSD (post-traumatic stress disorder) F43.10 ; Panic disorder F41.0 and BMI 40.0-44.9, adult Z68.41 [place] [id number] [place] [address] 27892- 4687 Dec, [facility] [address] [address]- 1747 Dec, [facility] [address] 57192- 7958 19 Dec, 2017 Essential hypertension I10 [facility] [address] [address]- 5307 14 Dec, 2017 [facility] [address] 0[address]- 6055 Dec, [facility] [id number] [place] [address] 69535- 6790 Dec, BMI 40.0-44.9, adult Z68.41 ; Severe episode of recurrent major depressive disorder, without psychotic features F33.2 ; PTSD (post- traumatic stress disorder) F43.10 and Panic disorder F41.0 [facility] [id number] [place] [address] 97234- 1583 Dec, [facility] [id number] [place] [address] 60925- 2790 Dec, [place] [id number] [place] [address] 19595- 9287 Dec, Essential hypertension I10 [place] [id number] [place] [address] 36456- 9086 Dec, Severe episode of recurrent major depressive disorder, without psychotic features F33.2 [place] [id number] [place] [address] 56199- 2227 Dec, Severe episode of recurrent major depressive disorder, without psychotic features F33.2 and Generalized anxiety disorder F41.1 [place] [id number] [place] [address] 28300- 4125 Nov, Cervical disc disease with myelopathy M50.00 [place] [id number] [place] [address] 88047- 8871 Nov, Cervical disc disease with myelopathy M50.00 ; Moderate persistent asthma without complication J45.40 and BMI 40.0-44.9, adult Z68.41 [place] [id number] [place] [address] 59431- 9415 Nov, [place] [id number] [place] [address] 01821- 1600 Nov, [facility] [id number] [place] [address] 32572- 4316 Nov, [facility] [address], [place] [address]- 1829 Nov, [facility] [address], [place] [address]- 9161 Nov, [facility] [address], [place] [address]- 7881 Nov, [facility] [id number] [place] [address] 12258- 5790 Nov, [facility] [address] [place] [address] 85022- 6730 Nov, [facility] [address] [place] [address] 73774- 5406 Nov, [facility] [address], [place] [address]- 7257 Nov, Severe episode of recurrent major depressive disorder, without psychotic features F33.2 ; PTSD (post-traumatic stress disorder) F43.10 ; Panic disorder F41.0 and BMI 40.0-44.9, adult Z68.41 [facility] [address], [place] [address] Nov, [facility] [address], [place] [address]- 5711 Nov, Essential hypertension I10 [facility] [id number] [place] [address] 02055- 4455 Nov, Severe episode of recurrent major depressive disorder, without psychotic features F33.2 [facility] [address], [place] [address]- 9321 Nov, Acute pain of left knee M25.562 [facility] [address], [place] [address]- 3624 Nov, Severe episode of recurrent major depressive disorder, without psychotic features F33.2 ; PTSD (post-traumatic stress disorder) F43.10 ; Panic disorder F41.0 and BMI 40.0-44.9, adult Z68.41 [facility] [address] [address]- 3927 Oct, [facility] [address] [place] [address]- 9702 Oct, [facility] [address] [place] [address]- 3837 Oct, [facility] [id number] [place] [address], [place] [address]- 7903 Oct, [facility] [id number] [place] [address]- 9014 Oct, Dorsalgia, unspecified M54.9 [facility] [id number] [address]- 2577 Oct, Severe episode of recurrent major depressive disorder, without psychotic features F33.2 and Generalized anxiety disorder F41.1 [facility] [address] [place] [address]- 9787 Oct, [facility] [id number] [place] [address]- 6115 Oct, [facility] [address] [place] [address]- 4386 Oct, [facility] [address], [place] [address]- 5014 Oct, [facility] [address], [place] [address]- 5133 Oct, [facility] [address], [place] [address]- 3171 Oct, [facility] [id number], [place] [address]- 6886 Oct, [facility] [address] [place] [address]- 5907 Oct, [facility] [id number] [place] [address] 87978- 3095 Sep, Dorsalgia, unspecified M54.9 [facility] [id number] [place] [address] 43029- 1851 Sep, [facility] [id number] [place] [address] 91692- 3949 Sep, [facility] [id number] [place] [address] 93969- 1043 Sep, Falling R29.6 ; Essential hypertension I10 ; Chronic obstructive pulmonary disease, unspecified COPD type J44.9 and BMI 40.0-44.9, adult Z68.41 [facility] [id number] [place] [address] 61867- 7869 Sep, [facility] [id number] [place] [address] 05268- 3803 Sep, [facility] [id number] [place] [address] 08590- 5586 Sep, [facility] [id number] [place] [address] 14566- 4469 Sep, Mild intermittent asthma without complication J45.20 [facility] [id number] [place] [address] 39841- 0049 Sep, [facility] [id number] [place] [address] 06055- 2668 Sep, [facility] [id number] [place] [address] 12341- 4691 Sep, [facility] [id number] [place] [address] 57590- 9032 Sep, [facility] [id number] [place] [address] 37849- 9837 Sep, [facility] [id number] [place] [address] 99704- 5554 Sep, [facility] [address], [place] [address]- 5352 15 Sep, 2017 Essential hypertension I10 [facility] [address], [place] [address]- 9651 15 Sep, 2017 [facility] [address], [place] [address]- 2557 15 Sep, 2017 [facility] [address] [place] [address] 86949- 1178 15 Sep, 2017 [facility] [address], [place] [address]- 6758 14 Sep, 2017 [facility] [address], [place] [address]- 0778 14 Sep, 2017 [facility] [address] [place] [address] 49231- 3152 14 Sep, 2017 [facility] [address] [place] [address] 15904- 6428 13 Sep, 2017 [facility] [address], [place] [address]- 8272 Sep, [facility] [address], [place] [address]- 7684 Sep, [facility] [address], [place] [address]- 8723 Sep, [facility] [address], [place] [address]- 0226 05 Sep, 2017 Mild intermittent asthma without complication J45.20 [facility] [address], [place] [address]- 0611 August, Essential hypertension I10 [facility] [address], [place] [address]- 9123 August, BMI 40.0-44.9, adult Z68.41 ; Dorsalgia, unspecified M54.9 ; Allergic state, initial encounter T78.40XA ; Mild intermittent asthma without complication J45.20 and 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 [facility] [id number] [place] [address] 16133- 7672 August, [facility] [id number] [place] [address] 34659- 3964 August, [facility] [id number] [place] [address] 71013- 5044 August, [facility] [id number] [place] [address] 41071- 6330 August, Reactive depression F32.9 [facility] [address] 50[address]- 1347 August, [facility] [id number] [place] [address] 73890- 9858 August, [facility] [id number] [place] [address] 93638- 6437 August, [facility] [id number] [place] [address] 02736- 1230 August, [facility] [id number] [place] [address] 59966- 3934 August, [facility] [id number] [place] [address] 29733- 2835 August, [facility] [id number] [place] [address] 25113- 8712 August, [facility] [id number] [place] [address] 16433- 7734 August, Muscle spasms of both lower extremities M62.838 ; Essential hypertension I10 and Reactive depression F32.9 [facility] [id number] [place] [address] 62264- 8317 August, [facility] [id number] [place] [address] 23906- 6552 Jul, [facility] [id number], [place] [address]- 9671 30 Jul, 2017 [facility] [address], [place] [address]- 8381 Jul, [facility] [address], [place] [address]- 8047 Jul, [facility] [address], [place] [address]- 2292 Jul, [facility] [address], [place] [address]- 0914 Jul, [facility] [address], [place] [address]- 1858 Jul, [facility] [address], [place] [address]- 6491 Jul, [facility] [address], [place] [address]- 8292 Jul, Essential hypertension I10 ; Other chronic pain G89.29 ; Dorsalgia, unspecified M54.9 ; Reactive depression F32.9 ; Mild intermittent asthma without complication J45.20 ; Allergic state, initial encounter T78.40XA and Muscle spasms of both lower extremities M62.838 IMMUNIZATIONS No Known Immunizations SOCIAL HISTORY Never Assessed REASON FOR VISIT Blood Pressure PLAN OF CARE VITAL SIGNS MEDICATIONS Unknown [...]
--- OUTSIDE RECORDS SUMMARY | 2018-04-06 07:58 | XMS REPORT ---
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 Name Role Phone RAFAELALINO RANGEL Unavailable PROBLEMS Type Condition ICD9-CM Code [id number] Code Onset Dates Condition Status SNOMED Code Problem Reactive depression F32.9 Active 23166240 Problem Generalized anxiety disorder F41.1 Active 55439841 Problem Severe episode of recurrent major depressive disorder, without psychotic features F33.2 Active 33261647 Problem Environmental allergies Z91.09 Active 468607808 Problem Moderate persistent asthma without complication J45.40 Active 598800210 Problem PTSD (post-traumatic stress disorder) F43.10 Active 81871304 Problem Falling R29.6 Active 353223192 Problem Cervical disc disease with myelopathy M50.00 Active 00891867 Problem Panic disorder F41.0 Active 804411120 Problem Essential hypertension I10 Active 74436339 Problem Dorsalgia, unspecified M54.9 Active 358587463 Problem Other chronic pain G89.29 Active 92008129 Problem Allergic state, initial encounter T78.40XA Active 042603986 Problem Muscle spasms of both lower extremities M62.838 Active 515841449 ALLERGIES No Information ENCOUNTERS Encounter Location Date Diagnosis [facility] [address], [place] [address] Mar, [facility] [address], [place] [address] Feb, [facility] [id number] [place] [address] 89973- 4700 Feb, [facility] [address], [place] [address] Jan, [facility] [id number] [place] [address] 55084- 4655 Jan, [facility] [address], [place] [address] Jan, [facility] [id number] [place] [address] 23993- 9517 Jan, [facility] [address], [place] [address] 3[address] Jan, Cervical disc disease with myelopathy M50.00 [facility] [id number] [place] [address] 03531- 3130 Jan, Severe episode of recurrent major depressive disorder, without psychotic features F33.2 ; Panic disorder F41.0 ; PTSD (post-traumatic stress disorder) F43.10 and BMI 40.0-44.9, adult Z68.41 [facility] [address], [place] [address] Jan, Severe episode of recurrent major depressive disorder, without psychotic features F33.2 and Generalized anxiety disorder F41.1 [facility] [address], [place] [address] 9[address] Jan, [facility] [id number] [place] [address] 04227- 6752 Jan, Cervical disc disease with myelopathy M50.00 [facility] [address], [place] [address] 45[address] Jan, [facility] [address], [place] [address] 26[address] Jan, [facility] [id number], [place] [address] 08[address] Jan, [facility] [id number] [place] [address] 08920- 8332 Jan, [facility] [address], [place] [address]- 0287 Jan, [facility] [id number] [place] [address] 37457- 9921 Jan, Environmental allergies Z91.09 and BMI 40.0-44.9, adult Z68.41 [facility] [address] [address]- [address] Jan, [facility] [address] [address]- [address] Jan, [facility] [address] [address]- 8989 Jan, Severe episode of recurrent major depressive disorder, without psychotic features F33.2 [facility] [address] [address]- [address] Dec, Severe episode of recurrent major depressive disorder, without psychotic features F33.2 [facility] [facility] [address] [address]- 5913 Dec, Encounter for immunization Z23 [facility] [address] [address]- 4978 Dec, [facility] [address] [address]- 4511 24 Dec, 2017 Severe episode of recurrent major depressive disorder, without psychotic features F33.2 ; PTSD (post-traumatic stress disorder) F43.10 ; Panic disorder F41.0 and BMI 40.0-44.9, adult Z68.41 [facility] [id number] [place] [address] 92205- 0291 Dec, [facility] [address] [address]- 9281 Dec, [facility] [address] [address]- 8463 Dec, Essential hypertension I10 [facility] [address] [address]- 8818 14 Dec, 2017 [facility] [address] [address]- 4961 Dec, [facility] [facility] [id number] [place] [address] 23738- 0052 Dec, BMI 40.0-44.9, adult Z68.41 ; Severe episode of recurrent major depressive disorder, without psychotic features F33.2 ; PTSD (post- traumatic stress disorder) F43.10 and Panic disorder F41.0 [facility] [id number] [place] [address] 25240- 3258 Dec, [facility] [id number] [place] [address] 16596- 9433 Dec, [facility] [id number] [place] [address] 11480- 7419 Dec, Essential hypertension I10 [facility] [id number] [place] [address] 14076- 7022 Dec, Severe episode of recurrent major depressive disorder, without psychotic features F33.2 [facility] [id number] [place] [address] 28861- 8390 Dec, Severe episode of recurrent major depressive disorder, without psychotic features F33.2 and Generalized anxiety disorder F41.1 [facility] [id number] [place] [address] 30936- 1438 Nov, Cervical disc disease with myelopathy M50.00 [facility] [id number] [place] [address] 23988- 1693 Nov, Cervical disc disease with myelopathy M50.00 ; Moderate persistent asthma without complication J45.40 and BMI 40.0-44.9, adult Z68.41 [facility] [id number] [place] [address] 85030- 7401 Nov, [facility] [id number] [place] [address] 58715- 8309 Nov, [facility] [id number] [place] [address] 12403- 7256 Nov, [facility] [address], [place] [address]- 63[address] Nov, [facility] [address], [place] [address]- 5889 Nov, [facility] [id number], [place] [address]- 8195 Nov, [facility] [id number] [place] [address] 48059- 4661 Nov, [facility] [address], [place] [address]- 0717 Nov, [facility] [id number] [place] [address] 62457- 5536 Nov, [facility] [address], [place] [address]- 2089 Nov, Severe episode of recurrent major depressive disorder, without psychotic features F33.2 ; PTSD (post-traumatic stress disorder) F43.10 ; Panic disorder F41.0 and BMI 40.0-44.9, adult Z68.41 [facility] [id number] [place] [address] 96397- 9843 Nov, [facility] [address], [place] [address]- 6582 Nov, Essential hypertension I10 [facility] [id number] [place] [address] 68310- 6882 Nov, Severe episode of recurrent major depressive disorder, without psychotic features F33.2 [facility] [address], [place] [address]- 5877 Nov, Acute pain of left knee M25.562 [facility] [address], [place] [address]- 7785 Nov, Severe episode of recurrent major depressive disorder, without psychotic features F33.2 ; PTSD (post-traumatic stress disorder) F43.10 ; Panic disorder F41.0 and BMI 40.0-44.9, adult Z68.41 [facility] [id number] [address] 5257 Oct, [facility] [id number] [place] [address], [place] [address]- 8013 Oct, [facility] [id number] [place] [address], [place] [address]- 1520 Oct, [facility] [id number] [place] [address] 43764- 5178 Oct, [facility] [id number] [place] [address], [place] [address]- 8455 Oct, Dorsalgia, unspecified M54.9 [facility] [id number] [place] [address], [place] [address]- 6927 Oct, Severe episode of recurrent major depressive disorder, without psychotic features F33.2 and Generalized anxiety disorder F41.1 [facility] [id number], [place] [address]- 3998 Oct, [facility] [id number] [place] [address] 35594- 9755 Oct, [facility] [id number] [address]- 8029 Oct, [facility] [id number], [place] [address]- 5544 Oct, [facility] [address], [place] [address]- 7084 Oct, [facility] [id number] [place] [address] 43260- 9220 Oct, [facility] [id number], [place] [address]- 6507 Oct, [facility] [address], [place] [address]- 3534 Oct, [facility] [id number] [place] [address] 21961- 3641 Sep, Dorsalgia, unspecified M54.9 [facility] [id number] [place] [address] 68212- 5316 Sep, [facility] [id number] [place] [address] 12044- 8986 Sep, [facility] [id number] [place] [address] 97996- 6881 Sep, Falling R29.6 ; Essential hypertension I10 ; Chronic obstructive pulmonary disease, unspecified COPD type J44.9 and BMI 40.0-44.9, adult Z68.41 [facility] [id number] [place] [address] 20925- 4016 Sep, [facility] [id number] [place] [address] 81787- 8343 Sep, [facility] [id number] [place] [address] 99289- 3401 Sep, [facility] [id number] [place] [address] 97946- 8983 Sep, Mild intermittent asthma without complication J45.20 [facility] [id number] [place] [address] 88895- 2138 Sep, [facility] [id number] [place] [address] 81702- 9171 Sep, [facility] [id number] [place] [address] 19745- 4901 Sep, [facility] [id number] [place] [address] 49281- 4881 Sep, [facility] [id number] [place] [address] 83296- 5899 Sep, [facility] [id number] [place] [address] 60353- 1010 Sep, [facility] [address], [place] [address]- 1308 15 Sep, 2017 Essential hypertension I10 [facility] [address], [place] [address]- 4381 15 Sep, 2017 [facility] [address], [place] [address]- 6080 15 Sep, 2017 [facility] [address] [place] [address] 70141- 8571 15 Sep, 2017 [facility] [address], [place] [address]- 8289 14 Sep, 2017 [facility] [id number] [place] [address] 41963- 3903 14 Sep, 2017 [facility] [id number] [place] [address] 71531- 0281 14 Sep, 2017 [facility] [address], [place] [address]- 4514 Sep, [facility] [address], [place] [address]- 3752 Sep, [facility] [address], [place] [address]- 2737 Sep, [facility] [address], [place] [address]- 1727 Sep, [facility] [address], [place] [address]- 5084 05 Sep, 2017 Mild intermittent asthma without complication J45.20 [facility] [address], [place] [address]- 8074 August, Essential hypertension I10 [facility] [address], [place] [address]- 8111 August, BMI 40.0-44.9, adult Z68.41 ; Dorsalgia, unspecified M54.9 ; Allergic state, initial encounter T78.40XA ; Mild intermittent asthma without complication J45.20 and 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 [facility] [id number] [place] [address] 35368- 0841 August, [facility] [id number] [place] [address] 11262- 8742 August, [facility] [id number] [place] [address] 77485- 3618 August, [facility] [id number] [place] [address] 61686- 2683 August, Reactive depression F32.9 [facility] [id number] [place] [address] 30164- 9213 August, [facility] [id number] [place] [address] 35340- 7994 August, [facility] [id number] [place] [address] 52698- 6935 August, [facility] [id number] [place] [address] 83610- 2791 August, [facility] [id number] [place] [address] 51423- 1772 August, [facility] [id number] [place] [address] 65649- 3498 August, [facility] [id number] [place] [address] 10551- 2118 August, [facility] [id number] [place] [address] 52331- 4966 August, Muscle spasms of both lower extremities M62.838 ; Essential hypertension I10 and Reactive depression F32.9 [facility] [id number] [place] [address] 93497- 4369 August, [facility] [id number] [place] [address] 85352- 9190 Jul, [facility] [address], [place] [address]- 5768 Jul, [facility] [address], [place] [address]- 8511 Jul, [facility] [address], [place] [address]- 5784 Jul, [facility] [id number] [place] [address] 45676- 0592 Jul, [facility] [id number] [place] [address] 15216- 2161 Jul, [facility] [id number] [place] [address] 21306- 0447 Jul, [facility] [id number] [place] [address] 35990- 7541 Jul, [facility] [address], [place] [address]- 3469 Jul, Essential hypertension I10 ; Other chronic pain G89.29 ; Dorsalgia, unspecified M54.9 ; Reactive depression F32.9 ; Mild intermittent asthma without complication J45.20 ; Allergic state, initial encounter T78.40XA and Muscle spasms of both lower extremities M62.838 IMMUNIZATIONS No Known Immunizations SOCIAL HISTORY Never Assessed REASON FOR VISIT f/u-AB/MA PLAN OF CARE Activity Details Follow Up March Reason: VITAL SIGNS Height 66 in 2018-01-24 Weight 268 lbs 2018-01-24 Heart Rate 68 bpm 2018-01-24 Respiratory Rate 20 2018-01-24 BMI 43.25 kg/m2 2018-01-24 Blood pressure systolic 122 mmHg 2018-01-24 Blood pressure diastolic 80 mmHg 2018-01-24 MEDICATIONS Medication Instructions Dosage Frequency Start Date End Date Duration Status Vitamin B Complex - as directed Active Allergy 12 MG Orally every 12 hrs 1 tablet as needed 12h Active Losartan Potassium 100 mg Orally Once a day 1 tablet 24h 30 days Active Lovastatin 40 mg Orally Once a day 1 tablet with the evening meal 24h Jul, Active Soma 350 MG Orally 3 times a day 1 tablet as needed 8h Nov, Active Gabapentin 300 MG Orally twice a day 1 capsule 12h Active ProAir HFA 108 (90 Base) MCG/ACT Inhalation every 6 hrs 2 puffs as needed 6h Sep, Active Aspir-81 81 MG Orally Once a day 1 tablet 24h 30 day(s) Active Zoloft 100 mg Orally Once a day 2 tablet 24h Active Fexofenadine-Pseudoephed ER 60-120 MG Orally Twice a day 1 tablet as needed 12h Jan, Active Singulair 10 mg Orally Once a day 1 tablet 24h Active Atenolol 50 mg Orally Once a day 1 tablet 24h 90 days Active BusPIRone HCl 10 MG Orally Three times a day 1 tablet 8h Dec, 30 days Active Breo Ellipta 100-25 MCG/INH [...]
--- OUTSIDE RECORDS SUMMARY | 2018-04-06 07:58 | XMS REPORT ---
Author Author ROSALINA GRAHAM [facility] Address [address] [place] [address] Care Team Providers Care Interventional Cardiologist Name Role Phone ROSALINA GRAHAM Unavailable PROBLEMS Type Condition ICD9-CM Code NWF39-VI Code Onset Dates Condition Status SNOMED Code Problem Reactive depression F32.9 Active 57646630 Problem Generalized anxiety disorder F41.1 Active 82965136 Problem Severe episode of recurrent major depressive disorder, without psychotic features F33.2 Active 12837886 Problem Environmental allergies Z91.09 Active 928749417 Problem Moderate persistent asthma without complication J45.40 Active 042290436 Problem PTSD (post-traumatic stress disorder) F43.10 Active 13710055 Problem Falling R29.6 Active 428523594 Problem Cervical disc disease with myelopathy M50.00 Active 53591667 Problem Panic disorder F41.0 Active 824983171 Problem Essential hypertension I10 Active 91336127 Problem Dorsalgia, unspecified M54.9 Active 465703914 Problem Other chronic pain G89.29 Active 59721009 Problem Allergic state, initial encounter T78.40XA Active 937026707 Problem Muscle spasms of both lower extremities M62.838 Active 371150901 ALLERGIES No Information ENCOUNTERS Encounter Location Date Diagnosis [facility] [id number] [address] Mar, [facility] [address], [place] [address] Feb, [facility] [id number] [place] [address]- 9960 Feb, [facility] [id number], [place] [address] Jan, [facility] [id number] [place] [address] 39635- 3441 Jan, [facility] [address], [place] [address] 85[address] Jan, [facility] [id number] [place] [address] 67404- 1120 Jan, [facility] [address], [place] [address] Jan, Cervical disc disease with myelopathy M50.00 [facility] [id number] [place] [address] 130923- 7897 Jan, Severe episode of recurrent major depressive disorder, without psychotic features F33.2 ; Panic disorder F41.0 ; PTSD (post-traumatic stress disorder) F43.10 and BMI 40.0-44.9, adult Z68.41 [facility] [address], [place] [address] Jan, Severe episode of recurrent major depressive disorder, without psychotic features F33.2 and Generalized anxiety disorder F41.1 [facility] [address] [address] Jan, [facility] [address], [place] [address] 8293 Jan, Cervical disc disease with myelopathy M50.00 [facility] [address], [place] [address] 8060 Jan, [facility] [address], [place] [address] 8[address] Jan, [facility] [address], [place] [address] 2185 Jan, [facility] [address], [place] [address] 5746 Jan, [facility] [address] [address] 45[address] Jan, [facility] [address] [address] Jan, Environmental allergies Z91.09 and BMI 40.0-44.9, adult Z68.41 [facility] [address] [address]- [address] Jan, [facility] [address] [address]- 4115 Jan, [facility] [address] [address]- 9417 Jan, Severe episode of recurrent major depressive disorder, without psychotic features F33.2 [facility] [address] [address] Dec, Severe episode of recurrent major depressive disorder, without psychotic features F33.2 [facility] [address] [address]- [address] Dec, Encounter for immunization Z23 [facility] [address] [address]- [address]491 Dec, [facility] [address] [address]- 8318 24 Dec, 2017 Severe episode of recurrent major depressive disorder, without psychotic features F33.2 ; PTSD (post-traumatic stress disorder) F43.10 ; Panic disorder F41.0 and BMI 40.0-44.9, adult Z68.41 [facility] [id number] [place] [address] 05821- 9236 Dec, [facility] [address] [address]- 4610 Dec, [facility] [address] [address]- 2860 19 Dec, 2017 Essential hypertension I10 [facility] [address] 8[address]- 1674 14 Dec, 2017 [facility] [address] [address]- 9203 Dec, [facility] [id number] [place] [address] 42812- 6051 Dec, BMI 40.0-44.9, adult Z68.41 ; Severe episode of recurrent major depressive disorder, without psychotic features F33.2 ; PTSD (post- traumatic stress disorder) F43.10 and Panic disorder F41.0 [facility] [id number] [place] [address] 36515- 4795 Dec, [facility] [id number] [place] [address] 24695- 7954 Dec, [facility] [id number] [place] [address] 61435- 9497 Dec, Essential hypertension I10 [facility] [id number] [place] [address] 52716- 8267 Dec, Severe episode of recurrent major depressive disorder, without psychotic features F33.2 [facility] [id number] [place] [address] 92917- 9541 Dec, Severe episode of recurrent major depressive disorder, without psychotic features F33.2 and Generalized anxiety disorder F41.1 [facility] [id number] [place] [address] 90300- 1127 Nov, Cervical disc disease with myelopathy M50.00 [facility] [id number] [place] [address] 67683- 0256 Nov, Cervical disc disease with myelopathy M50.00 ; Moderate persistent asthma without complication J45.40 and BMI 40.0-44.9, adult Z68.41 [facility] [id number] [place] [address] 27738- 6291 Nov, [facility] [id number] [place] [address] 83932- 8590 Nov, [facility] [id number] [place] [address] 59727- 8021 Nov, [facility] [address], [place] [address] 1718 Nov, [facility] [address], [place] [address] 3020 Nov, [facility] [address], [place] [address] 6901 Nov, [facility] [id number] [place] [address] 19049- 1432 Nov, [facility] [address] [place] [address] 37178- 0565 Nov, [facility] [address] [place] [address] 24485- 0437 Nov, [facility] [address], [place] [address] 4710 Nov, Severe episode of recurrent major depressive disorder, without psychotic features F33.2 ; PTSD (post-traumatic stress disorder) F43.10 ; Panic disorder F41.0 and BMI 40.0-44.9, adult Z68.41 [facility] [address], [place] [address] 6714 Nov, [facility] [address], [place] [address] 6022 Nov, Essential hypertension I10 [facility] [address] [place] [address] 90402- 9032 Nov, Severe episode of recurrent major depressive disorder, without psychotic features F33.2 [facility] [address], [place] [address]- 5239 Nov, Acute pain of left knee M25.562 [facility] [address], [place] [address]- 6466 Nov, Severe episode of recurrent major depressive disorder, without psychotic features F33.2 ; PTSD (post-traumatic stress disorder) F43.10 ; Panic disorder F41.0 and BMI 40.0-44.9, adult Z68.41 [facility] [address] [address] 6[address] Oct, [facility] [address] [address]- 7481 Oct, [facility] [address] [address]- 3146 Oct, [facility] [id number] [place] [address], [place] [address] 37[address] Oct, [facility] [id number] [address] 8241 Oct, Dorsalgia, unspecified M54.9 [facility] [id number] [address]- 3487 Oct, Severe episode of recurrent major depressive disorder, without psychotic features F33.2 and Generalized anxiety disorder F41.1 [facility] [address] [address]- 7730 Oct, [facility] [address] [address]- 5942 Oct, [facility] [address] [address]- 9656 Oct, [facility] [address], [place] [address]- 0296 Oct, [facility] [address], [place] [address]- 1250 Oct, [facility] [address], [place] [address]- 0760 Oct, [facility] [id number], [place] [address]- 1345 Oct, [facility] [address] [address]- 4466 Oct, [facility] [id number] [place] [address] 23707- 9564 Sep, Dorsalgia, unspecified M54.9 [facility] [id number] [place] [address] 18193- 4789 Sep, [facility] [id number] [place] [address] 52882- 9154 Sep, [facility] [id number] [place] [address] 72069- 5695 Sep, Falling R29.6 ; Essential hypertension I10 ; Chronic obstructive pulmonary disease, unspecified COPD type J44.9 and BMI 40.0-44.9, adult Z68.41 [facility] [id number] [place] [address] 73350- 8828 Sep, [facility] [id number] [place] [address] 02077- 8929 Sep, [facility] [id number] [place] [address] 48662- 2915 Sep, [facility] [id number] [place] [address] 43534- 5735 Sep, Mild intermittent asthma without complication J45.20 [facility] [id number] [place] [address] 76068- 4432 Sep, [facility] [id number] [place] [address] 43020- 6410 Sep, [facility] [id number] [place] [address] 57662- 1868 Sep, [facility] [id number] [place] [address] 12328- 7355 Sep, [facility] [id number] [place] [address] 78411- 2776 Sep, [facility] [id number] [place] [address] 83249- 2613 Sep, [facility] [address], [place] [address]- 0827 15 Sep, 2017 Essential hypertension I10 [facility] [address], [place] [address]- 0400 15 Sep, 2017 [facility] [address], [place] [address]- 6775 15 Sep, 2017 [facility] [id number] [place] [address] 22690- 4482 15 Sep, 2017 [facility] [address], [place] [address]- 9442 14 Sep, 2017 [facility] [address], [place] [address]- 2999 14 Sep, 2017 [facility] [id number] [place] [address] 96924- 4336 14 Sep, 2017 [facility] [id number] [place] [address] 21044- 9045 13 Sep, 2017 [facility] [address], [place] [address]- 1924 Sep, [facility] [address], [place] [address]- 5685 Sep, [facility] [address], [place] [address]- 2227 Sep, [facility] [address], [place] [address]- 9518 05 Sep, 2017 Mild intermittent asthma without complication J45.20 [facility] [address], [place] [address]- 2402 August, Essential hypertension I10 [facility] [address], [place] [address]- 8656 August, BMI 40.0-44.9, adult Z68.41 ; Dorsalgia, unspecified M54.9 ; Allergic state, initial encounter T78.40XA ; Mild intermittent asthma without complication J45.20 and 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 [facility] [id number] [place] [address] 58040- 2290 August, [facility] [id number] [place] [address] 35279- 2788 August, [facility] [id number] [place] [address] 27406- 7970 August, [facility] [id number] [place] [address] 56192- 2887 August, Reactive depression F32.9 [facility] [address] [address]- 0960 August, [facility] [id number] [place] [address] 98753- 9715 August, [facility] [id number] [place] [address] 34211- 0923 August, [facility] [id number] [place] [address] 53245- 9309 August, [facility] [id number] [place] [address] 55226- 8577 August, [facility] [id number] [place] [address] 79506- 9635 August, [facility] [id number] [place] [address] 48634- 1575 August, [facility] [id number] [place] [address] 03412- 4167 August, Muscle spasms of both lower extremities M62.838 ; Essential hypertension I10 and Reactive depression F32.9 [facility] [id number] [place] [address] 23632- 1828 August, [facility] [id number] [place] [address] 21148- 6851 Jul, [facility] [id number] [address]- 8085 30 Jul, 2017 [facility] [id number] [address]- 9077 Jul, [facility] [address], [place] [address]- 1301 Jul, [facility] [address], [place] [address]- 3862 Jul, [facility] [address], [place] [address]- 4356 Jul, [facility] [address], [place] [address]- 2051 Jul, [facility] [address], [place] [address]- 9409 Jul, [facility] [address], [place] [address]- 2550 Jul, Essential hypertension I10 ; Other chronic [...]
--- OUTSIDE RECORDS SUMMARY | 2018-04-06 07:58 | XMS REPORT ---
Author Author ROSALINA GRAHAM [facility] Address [address] [place] [address] Care Team Providers Care Motor Vehicle Compliance Analyst Name Role Phone ROSALINA GRAHAM Unavailable PROBLEMS Type Condition ICD9-CM Code [id number] Code Onset Dates Condition Status SNOMED Code Problem Reactive depression F32.9 Active 53916965 Problem Generalized anxiety disorder F41.1 Active 86854234 Problem Severe episode of recurrent major depressive disorder, without psychotic features F33.2 Active 79327848 Problem Environmental allergies Z91.09 Active 964578012 Problem Moderate persistent asthma without complication J45.40 Active 340370483 Problem PTSD (post-traumatic stress disorder) F43.10 Active 84882054 Problem Falling R29.6 Active 797690189 Problem Cervical disc disease with myelopathy M50.00 Active 24598728 Problem Panic disorder F41.0 Active 282951363 Problem Essential hypertension I10 Active 29080020 Problem Dorsalgia, unspecified M54.9 Active 393047684 Problem Other chronic pain G89.29 Active 91396560 Problem Allergic state, initial encounter T78.40XA Active 539503913 Problem Muscle spasms of both lower extremities M62.838 Active 640284808 ALLERGIES No Information ENCOUNTERS Encounter Location Date Diagnosis [facility] [id number], [place] [address] Mar, [facility] [address], [place] [address] Feb, [facility] [id number] [place] [address] 9[address]01- 6856 Feb, [facility] [id number], [place] [address] Jan, [facility] [id number] [place] [address] 26776- 9312 Jan, [facility] [address], [place] [address] Jan, [facility] [id number] [place] [address] 70864- 3131 Jan, [facility] [address], [place] [address] Jan, Cervical disc disease with myelopathy M50.00 [facility] [id number] [place] [address]1975- 2564 Jan, Severe episode of recurrent major depressive disorder, without psychotic features F33.2 ; Panic disorder F41.0 ; PTSD (post-traumatic stress disorder) F43.10 and BMI 40.0-44.9, adult Z68.41 [facility] [address] [address] Jan, Severe episode of recurrent major depressive disorder, without psychotic features F33.2 and Generalized anxiety disorder F41.1 [facility] [address], [place] [address] Jan, [facility] [address], [place] [address] 0[address] Jan, Cervical disc disease with myelopathy M50.00 [facility] [address], [place] [address] 2616 Jan, [facility] [address], [place] [address] 42[address] Jan, [facility] [address] [address] 9432 Jan, [facility] [address], [place] [address] 0182 Jan, [facility] [address], [place] [address]- 8345 Jan, [facility] [address] [address] Jan, Environmental allergies Z91.09 and BMI 40.0-44.9, adult Z68.41 [facility] [address] [address]- [address]846 Jan, [facility] [address] [address]- 3234 Jan, [facility] [address] [address]- 5561 Jan, Severe episode of recurrent major depressive disorder, without psychotic features F33.2 [address] [address] [address]- [address] Dec, Severe episode of recurrent major depressive disorder, without psychotic features F33.2 [place] [address]- [address]60 Dec, Encounter for immunization Z23 [facility] [address] [address]- 1055 Dec, [facility] [address] [address]- 0319 24 Dec, 2017 Severe episode of recurrent major depressive disorder, without psychotic features F33.2 ; PTSD (post-traumatic stress disorder) F43.10 ; Panic disorder F41.0 and BMI 40.0-44.9, adult Z68.41 [place] [id number] [place] [address] 61804- 6107 Dec, [facility] [address] [address]- 7913 Dec, [facility] [address] [address]- 8086 19 Dec, 2017 Essential hypertension I10 [facility] [address] [address]- 0332 14 Dec, 2017 [facility] [address] 9[address]- 4212 Dec, [facility] [id number] [place] [address] 31990- 2408 Dec, BMI 40.0-44.9, adult Z68.41 ; Severe episode of recurrent major depressive disorder, without psychotic features F33.2 ; PTSD (post- traumatic stress disorder) F43.10 and Panic disorder F41.0 [facility] [id number] [place] [address] 54151- 4501 Dec, [facility] [id number] [place] [address] 97027- 1666 Dec, [place] [id number] [place] [address] 36471- 9154 Dec, Essential hypertension I10 [place] [id number] [place] [address] 91792- 9927 Dec, Severe episode of recurrent major depressive disorder, without psychotic features F33.2 [place] [id number] [place] [address] 07070- 6876 Dec, Severe episode of recurrent major depressive disorder, without psychotic features F33.2 and Generalized anxiety disorder F41.1 [place] [id number] [place] [address] 77222- 9007 Nov, Cervical disc disease with myelopathy M50.00 [place] [id number] [place] [address] 06871- 4833 Nov, Cervical disc disease with myelopathy M50.00 ; Moderate persistent asthma without complication J45.40 and BMI 40.0-44.9, adult Z68.41 [place] [id number] [place] [address] 07580- 7985 Nov, [place] [id number] [place] [address] 65803- 9630 Nov, [facility] [id number] [place] [address] 63144- 2459 Nov, [facility] [address], [place] [address]- 7526 Nov, [facility] [address], [place] [address]- 4437 Nov, [facility] [address], [place] [address]- 3415 Nov, [facility] [id number] [place] [address] 44739- 0565 Nov, [facility] [id number] [place] [address] 26370- 3018 Nov, [facility] [id number] [place] [address] 42154- 1663 Nov, [facility] [address], [place] [address]- 7324 Nov, Severe episode of recurrent major depressive disorder, without psychotic features F33.2 ; PTSD (post-traumatic stress disorder) F43.10 ; Panic disorder F41.0 and BMI 40.0-44.9, adult Z68.41 [facility] [address], [place] [address]- 0357 Nov, [facility] [address], [place] [address]- 7476 Nov, Essential hypertension I10 [facility] [id number] [place] [address] 31913- 2084 Nov, Severe episode of recurrent major depressive disorder, without psychotic features F33.2 [facility] [address], [place] [address]- 8696 Nov, Acute pain of left knee M25.562 [facility] [address], [place] [address]- 4565 Nov, Severe episode of recurrent major depressive disorder, without psychotic features F33.2 ; PTSD (post-traumatic stress disorder) F43.10 ; Panic disorder F41.0 and BMI 40.0-44.9, adult Z68.41 [facility] [id number] [address]- 2573 Oct, [facility] [id number] [place] [address]- 1182 Oct, [facility] [id number] [place] [address]- 8142 Oct, [facility] [id number] [place] [address], [place] [address]- 0729 Oct, [facility] [id number] [place] [address]- 4157 Oct, Dorsalgia, unspecified M54.9 [facility] [id number] [place] [address]- 7581 Oct, Severe episode of recurrent major depressive disorder, without psychotic features F33.2 and Generalized anxiety disorder F41.1 [facility] [id number] [place] [address]- 6497 Oct, [facility] [id number] [place] [address]- 9695 Oct, [facility] [id number] [place] [address]- 6667 Oct, [facility] [id number], [place] [address]- 5445 Oct, [facility] [id number], [place] [address]- 3020 Oct, [facility] [id number], [place] [address]- 5134 Oct, [facility] [id number], [place] [address]- 3367 Oct, [facility] [id number] [place] [address]- 4077 Oct, [facility] [id number] [place] [address] 15917- 4362 Sep, Dorsalgia, unspecified M54.9 [facility] [id number] [place] [address] 50294- 6588 Sep, [facility] [id number] [place] [address] 59664- 9223 Sep, [facility] [id number] [place] [address] 80597- 3874 Sep, Falling R29.6 ; Essential hypertension I10 ; Chronic obstructive pulmonary disease, unspecified COPD type J44.9 and BMI 40.0-44.9, adult Z68.41 [facility] [id number] [place] [address] 49722- 4185 Sep, [facility] [id number] [place] [address] 21726- 9303 Sep, [facility] [id number] [place] [address] 87505- 6565 Sep, [facility] [id number] [place] [address] 31052- 1073 Sep, Mild intermittent asthma without complication J45.20 [facility] [id number] [place] [address] 67278- 5697 Sep, [facility] [id number] [place] [address] 70926- 4871 Sep, [facility] [id number] [place] [address] 39871- 8384 Sep, [facility] [id number] [place] [address] 39489- 3869 Sep, [facility] [id number] [place] [address] 70380- 4007 Sep, [facility] [id number] [place] [address] 92544- 8798 Sep, [facility] [address], [place] [address]- 5208 15 Sep, 2017 Essential hypertension I10 [facility] [address], [place] [address]- 9349 15 Sep, 2017 [facility] [address], [place] [address]- 3355 15 Sep, 2017 [facility] [id number] [place] [address] 54415- 4158 15 Sep, 2017 [facility] [address], [place] [address]- 0863 14 Sep, 2017 [facility] [address], [place] [address]- 8495 14 Sep, 2017 [facility] [id number] [place] [address] 19156- 6545 14 Sep, 2017 [facility] [id number] [place] [address] 51657- 7978 13 Sep, 2017 [facility] [address], [place] [address]- 2370 Sep, [facility] [address], [place] [address]- 7045 Sep, [facility] [address], [place] [address]- 9809 Sep, [facility] [address], [place] [address]- 1751 05 Sep, 2017 Mild intermittent asthma without complication J45.20 [facility] [address], [place] [address]- 3264 August, Essential hypertension I10 [facility] [address], [place] [address]- 0750 August, BMI 40.0-44.9, adult Z68.41 ; Dorsalgia, unspecified M54.9 ; Allergic state, initial encounter T78.40XA ; Mild intermittent asthma without complication J45.20 and 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 [facility] [id number] [place] [address] 79425- 7111 August, [facility] [id number] [place] [address] 47225- 2757 August, [facility] [id number] [place] [address] 39984- 7541 August, [facility] [id number] [place] [address] 75502- 6342 August, Reactive depression F32.9 [facility] [address] [address]- 7880 August, [facility] [id number] [place] [address] 48668- 2000 August, [facility] [id number] [place] [address] 55525- 6600 August, [facility] [id number] [place] [address] 55338- 4619 August, [facility] [id number] [place] [address] 22159- 9334 August, [facility] [id number] [place] [address] 86422- 3404 August, [facility] [id number] [place] [address] 86367- 0353 August, [facility] [id number] [place] [address] 37678- 5513 August, Muscle spasms of both lower extremities M62.838 ; Essential hypertension I10 and Reactive depression F32.9 [facility] [id number] [place] [address] 25726- 7518 August, [facility] [id number] [place] [address] 08963- 4304 Jul, [facility] [id number] [address]- 7794 30 Jul, 2017 [facility] [address], [place] [address]- 7646 Jul, [facility] [address], [place] [address]- 6876 Jul, [facility] [address], [place] [address]- 2907 Jul, [facility] [id number], [place] [address]- 0239 Jul, [facility] [address], [place] [address]- 8475 Jul, [facility] [address], [place] [address]- 4519 Jul, [facility] [address], [place] [address]- 4620 Jul, Essential hypertension I10 ; Other chronic pain G89.29 ; Dorsalgia, unspecified M54.9 ; Reactive depression F32.9 ; Mild intermittent asthma without complication J45.20 ; Allergic state, initial encounter T78.40XA and Muscle spasms of both lower extremities M62.838 IMMUNIZATIONS No Known Immunizations SOCIAL HISTORY Never Assessed REASON FOR VISIT New Refill Request (soma) PLAN OF CARE VITAL SIGNS MEDICATIONS Unknown [...]
[2018-04-06] MEDS ORDERED: SEVOFLURANE (ULTANE) 15 ML INHAL SOLN ONE ×3 (07:59→08:11)
[2018-04-06] MEDS ORDERED: proPOfol 200 MG/20 ML (DIPRIVAN) VIAL IV ONE (07:59)
[2018-04-06] MEDS ORDERED: LIDOCAINE PF 2% 5 ML (XYLOCAINE) VIAL ONE (07:59)
[2018-04-06] MEDS ORDERED: ONDANSETRON 4 MG/2 ML (SDV) Z0FRAN ONE (07:59)
--- OUTSIDE RECORDS SUMMARY | 2018-04-06 07:59 | XMS REPORT ---
Author Author LUCI RANGEL Organization [facility] Address [address] [place] [address] Care Team Providers Care Front End Developer Javascript Html Css Name Role Phone LUCI RANGEL Unavailable PROBLEMS Type Condition ICD9-CM Code RSF69-RQ Code Onset Dates Condition Status SNOMED Code Problem Reactive depression F32.9 Active 98004650 Problem Generalized anxiety disorder F41.1 Active 06806748 Problem Severe episode of recurrent major depressive disorder, without psychotic features F33.2 Active 65796626 Problem Environmental allergies Z91.09 Active 946789104 Problem Moderate persistent asthma without complication J45.40 Active 049605854 Problem PTSD (post-traumatic stress disorder) F43.10 Active 37652140 Problem Falling R29.6 Active 415521301 Problem Cervical disc disease with myelopathy M50.00 Active 73192817 Problem Panic disorder F41.0 Active 847724887 Problem Essential hypertension I10 Active 94989291 Problem Dorsalgia, unspecified M54.9 Active 264227283 Problem Other chronic pain G89.29 Active 35440297 Problem Allergic state, initial encounter T78.40XA Active 936684561 Problem Muscle spasms of both lower extremities M62.838 Active 433544472 ALLERGIES No Information ENCOUNTERS Encounter Location Date Diagnosis [facility] [id number] [address] Mar, [facility] [id number] [address] Feb, [facility] [id number] [place] [address] 12361- 4192 Feb, [facility] [address] [address] Jan, [facility] [id number] [place] [address] 69188- 3225 Jan, [facility] [id number] [address] 8827 Jan, [facility] [id number] [place] [address] 83430- 7901 Jan, [facility] [id number] [address] Jan, Cervical disc disease with myelopathy M50.00 [facility] [id number] [place] [address] 77976- 8510 Jan, Severe episode of recurrent major depressive disorder, without psychotic features F33.2 ; Panic disorder F41.0 ; PTSD (post-traumatic stress disorder) F43.10 and BMI 40.0-44.9, adult Z68.41 [facility] [id number] [address] Jan, Severe episode of recurrent major depressive disorder, without psychotic features F33.2 and Generalized anxiety disorder F41.1 [facility] [id number] [address] 0[address] Jan, [facility] [id number] [place] [address] 24629- 8085 Jan, Cervical disc disease with myelopathy M50.00 [facility] [id number] [address] 4[address] Jan, [facility] [id number] [address] 6808 Jan, [facility] [id number] [address] 1178 Jan, [facility] [id number] [place] [address] 19909- 2787 Jan, [facility] [id number] [address] 5679 Jan, [facility] [id number] [place] [address] 93677- 1946 Jan, Environmental allergies Z91.09 and BMI 40.0-44.9, adult Z68.41 [facility] [address] [address]- 9489 Jan, [facility] [address] 16863- 2891 Jan, [facility] [address] 39145- 1667 Jan, Severe episode of recurrent major depressive disorder, without psychotic features F33.2 [facility] [facility] [address] [address]70- 7951 Dec, Severe episode of recurrent major depressive disorder, without psychotic features F33.2 [place] [address] 79018- 1644 Dec, Encounter for immunization Z23 [facility] [address] 35617- 8800 Dec, [facility] [address] 56562- 3458 24 Dec, 2017 Severe episode of recurrent major depressive disorder, without psychotic features F33.2 ; PTSD (post-traumatic stress disorder) F43.10 ; Panic disorder F41.0 and BMI 40.0-44.9, adult Z68.41 [facility] [id number] [place] [address] 34510- 0620 Dec, [facility] [address] 43100- 9800 Dec, [facility] [address] 19355- 4404 Dec, Essential hypertension I10 [facility] [address] 78237- 9578 14 Dec, 2017 [facility] [address] 27867- 1549 Dec, [place] [facility] [id number] [place] [address] 16062- 4959 Dec, BMI 40.0-44.9, adult Z68.41 ; Severe episode of recurrent major depressive disorder, without psychotic features F33.2 ; PTSD (post- traumatic stress disorder) F43.10 and Panic disorder F41.0 [facility] [facility] [id number] [place] [address] 92735- 5289 Dec, [facility] [id number] [place] [address] 44259- 8841 Dec, [facility] [id number] [place] [address] 46118- 1985 Dec, Essential hypertension I10 [facility] [id number] [place] [address] 88405- 6722 Dec, Severe episode of recurrent major depressive disorder, without psychotic features F33.2 [facility] [facility] [id number] [place] [address] 40377- 1372 Dec, Severe episode of recurrent major depressive disorder, without psychotic features F33.2 and Generalized anxiety disorder F41.1 [facility] [facility] [id number] [place] [address] 95805- 8033 Nov, Cervical disc disease with myelopathy M50.00 [facility] [id number] [place] [address] 56157- 1094 Nov, Cervical disc disease with myelopathy M50.00 ; Moderate persistent asthma without complication J45.40 and BMI 40.0-44.9, adult Z68.41 [facility] [id number] [place] [address] 79951- 8367 Nov, [facility] [id number] [place] [address] 67938- 1403 Nov, [facility] [id number] [place] [address] 70167- 3336 Nov, [facility] [id number] [address] 9212 Nov, [facility] [id number] [address]- 4357 Nov, [facility] [id number] [address]- 0924 Nov, [facility] [id number] [place] [address] 24100- 9272 Nov, [facility] [id number] [address] 2723 Nov, [facility] [id number] [place] [address] 20324- 9384 Nov, [facility] [id number] [address] 6959 Nov, Severe episode of recurrent major depressive disorder, without psychotic features F33.2 ; PTSD (post-traumatic stress disorder) F43.10 ; Panic disorder F41.0 and BMI 40.0-44.9, adult Z68.41 [facility] [id number] [place] [address] 85173- 7837 Nov, [facility] [id number] [address]- 0266 Nov, Essential hypertension I10 [facility] [id number] [place] [address] 55962- 1568 Nov, Severe episode of recurrent major depressive disorder, without psychotic features F33.2 [facility] [id number] [address]- 4710 Nov, Acute pain of left knee M25.562 [facility] [id number] [address]- 0077 Nov, Severe episode of recurrent major depressive disorder, without psychotic features F33.2 ; PTSD (post-traumatic stress disorder) F43.10 ; Panic disorder F41.0 and BMI 40.0-44.9, adult Z68.41 [facility] [id number] [place] [address]- 1740 Oct, [facility] [id number] [place] [address], [place] [address]- 9709 Oct, [facility] [id number] [place] [address], [place] [address]- 3963 Oct, [facility] [id number] [place] [address] 68032- 5710 Oct, [facility] [id number] [place] [address], [place] [address]- 9355 Oct, Dorsalgia, unspecified M54.9 [facility] [id number] [place] [address], [place] [address]- 7796 Oct, Severe episode of recurrent major depressive disorder, without psychotic features F33.2 and Generalized anxiety disorder F41.1 [facility] [id number] [address]- 4806 Oct, [facility] [id number] [place] [address] 60470- 5035 Oct, [facility] [id number] [address]- 0085 Oct, [facility] [id number] [address]- 7169 Oct, [facility] [id number] [address]- 4519 Oct, [facility] [id number] [place] [address] 84822- 5728 Oct, [facility] [id number] [address] 1957 Oct, [facility] [id number] [address]- 9245 Oct, [facility] [id number] [place] [address] 16907- 4737 Sep, Dorsalgia, unspecified M54.9 [facility] [id number] [place] [address] 32376- 2594 Sep, [facility] [id number] [place] [address] 89465- 8219 Sep, [facility] [id number] [place] [address] 36351- 0905 Sep, Falling R29.6 ; Essential hypertension I10 ; Chronic obstructive pulmonary disease, unspecified COPD type J44.9 and BMI 40.0-44.9, adult Z68.41 [facility] [id number] [place] [address] 03824- 8846 Sep, [facility] [id number] [place] [address] 82152- 3023 Sep, [facility] [id number] [place] [address] 40380- 8351 Sep, [facility] [id number] [place] [address] 27864- 1716 Sep, Mild intermittent asthma without complication J45.20 [facility] [id number] [place] [address] 31903- 6941 Sep, [facility] [id number] [place] [address] 79085- 4655 Sep, [facility] [id number] [place] [address] 28564- 9105 Sep, [facility] [id number] [place] [address] 61585- 7520 Sep, [facility] [id number] [place] [address] 21956- 5568 Sep, [facility] [id number] [place] [address] 93242- 9887 Sep, [facility] [id number] [address]- 2420 15 Sep, 2017 Essential hypertension I10 [facility] [id number] [address]- 0533 15 Sep, 2017 [facility] [id number] [address]- 4205 15 Sep, 2017 [facility] [id number] [place] [address] 86988- 6970 15 Sep, 2017 [facility] [id number] [address]- 2158 14 Sep, 2017 [facility] [id number] [place] [address] 97342- 8063 14 Sep, 2017 [facility] [id number] [place] [address] 43928- 9628 14 Sep, 2017 [facility] [id number] [address]- 9638 Sep, [facility] [id number] [address]- 0770 Sep, [facility] [id number] [address]- 6460 Sep, [facility] [id number] [address]- 1966 Sep, [facility] [id number] [address]- 8485 05 Sep, 2017 Mild intermittent asthma without complication J45.20 [facility] [id number] [address]- 6955 August, Essential hypertension I10 [facility] [id number] [address]- 0877 August, BMI 40.0-44.9, adult Z68.41 ; Dorsalgia, unspecified M54.9 ; Allergic state, initial encounter T78.40XA ; Mild intermittent asthma without complication J45.20 and 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 [facility] [id number] [place] [address] 33978- 2444 August, [facility] [id number] [place] [address] 79224- 1429 August, [facility] [id number] [place] [address] 98214- 6142 August, [facility] [id number] [place] [address] 40273- 6092 August, Reactive depression F32.9 [facility] [id number] [place] [address] 85365- 7269 August, [facility] [id number] [place] [address] 59375- 9462 August, [facility] [id number] [place] [address] 90022- 8724 August, [facility] [id number] [place] [address] 22759- 0361 August, [facility] [id number] [place] [address] 31248- 6034 August, [facility] [id number] [place] [address] 76726- 4518 August, [facility] [id number] [place] [address] 28233- 3697 August, [facility] [id number] [place] [address] 52434- 1893 August, Muscle spasms of both lower extremities M62.838 ; Essential hypertension I10 and Reactive depression F32.9 [facility] [id number] [place] [address] 54238- 4152 August, [facility] [id number] [place] [address] 88164- 2010 Jul, [facility] [id number] [address]- 4723 Jul, [facility] [id number] [address]- 8931 Jul, [facility] [id number] [address]- 2824 Jul, [facility] [id number] [address]- 0972 Jul, [facility] [id number] [address]- 0957 Jul, [facility] [id number] [place] [address] 37623- 0163 Jul, [facility] [address] [address]- 6101 Jul, [facility] [id number] [address]- 1649 Jul, Essential hypertension I10 ; Other chronic pain G89.29 ; Dorsalgia, unspecified M54.9 ; Reactive depression F32.9 ; Mild intermittent asthma without complication J45.20 ; Allergic state, initial encounter T78.40XA and Muscle spasms of both lower extremities M62.838 IMMUNIZATIONS No Known Immunizations SOCIAL HISTORY Never Assessed REASON FOR VISIT Re:RE:Appointments PLAN OF CARE VITAL SIGNS MEDICATIONS Unknown [...]
--- OUTSIDE RECORDS SUMMARY | 2018-04-06 07:59 | XMS REPORT ---
Author Author RITIKA OLIVER [facility] Address [address] [place] [address] Care Team Providers Care Accelerator Technician Name Role Phone RITIKA OLIVER Unavailable PROBLEMS Type Condition ICD9-CM Code HWX56-TH Code Onset Dates Condition Status SNOMED Code Problem Reactive depression F32.9 Active 46968097 Problem Generalized anxiety disorder F41.1 Active 78909962 Problem Severe episode of recurrent major depressive disorder, without psychotic features F33.2 Active 00613534 Problem Environmental allergies Z91.09 Active 061432882 Problem Moderate persistent asthma without complication J45.40 Active 082657111 Problem PTSD (post-traumatic stress disorder) F43.10 Active 87592746 Problem Falling R29.6 Active 596522379 Problem Cervical disc disease with myelopathy M50.00 Active 92707808 Problem Panic disorder F41.0 Active 461298148 Problem Essential hypertension I10 Active 50303005 Problem Dorsalgia, unspecified M54.9 Active 392677694 Problem Other chronic pain G89.29 Active 76344688 Problem Allergic state, initial encounter T78.40XA Active 016917021 Problem Muscle spasms of both lower extremities M62.838 Active 714362692 ALLERGIES No Information ENCOUNTERS Encounter Location Date Diagnosis [facility] [address], [place] [address] Mar, [facility] [address], [place] [address] Feb, [facility] [id number] [place] [address]2918- 3876 Feb, [facility] [address] [address] Jan, [facility] [id number] [place] [address] 11027- 3523 Jan, [facility] [address], [place] [address] Jan, [facility] [id number] [place] [address] 86735- 3317 Jan, [facility] [address], [place] [address] Jan, Cervical disc disease with myelopathy M50.00 [facility] [id number] [place] [address] 39633- 3650 Jan, Severe episode of recurrent major depressive disorder, without psychotic features F33.2 ; Panic disorder F41.0 ; PTSD (post-traumatic stress disorder) F43.10 and BMI 40.0-44.9, adult Z68.41 [facility] [address], [place] [address] Jan, Severe episode of recurrent major depressive disorder, without psychotic features F33.2 and Generalized anxiety disorder F41.1 [facility] [address], [place] [address] Jan, [facility] [id number] [place] [address] 51338- 4680 Jan, Cervical disc disease with myelopathy M50.00 [facility] [address], [place] [address] 7[address] Jan, [facility] [address], [place] [address] 2563 Jan, [facility] [id number] [address]- 8092 Jan, [facility] [id number] [place] [address] 69565- 5396 Jan, [facility] [address], [place] [address] 1995 Jan, [facility] [id number] [place] [address] 96330- 9424 Jan, Environmental allergies Z91.09 and BMI 40.0-44.9, adult Z68.41 [facility] [address] [address]- [address]90 Jan, [facility] [address] [address]- [address]12 Jan, [facility] [address] [address]- 6128 Jan, Severe episode of recurrent major depressive disorder, without psychotic features F33.2 [place] [address] [address]- [address]406 Dec, Severe episode of recurrent major depressive disorder, without psychotic features F33.2 [place] [address] [address]- [address]326 Dec, Encounter for immunization Z23 [facility] [address] [address]- [address]881 Dec, [facility] [address] 10522- 2219 24 Dec, 2017 Severe episode of recurrent major depressive disorder, without psychotic features F33.2 ; PTSD (post-traumatic stress disorder) F43.10 ; Panic disorder F41.0 and BMI 40.0-44.9, adult Z68.41 [facility] [id number] [place] [address] 58456- 5966 Dec, [facility] [address] 29[address]- 2820 Dec, [facility] [address] [address]30- 6072 Dec, Essential hypertension I10 [facility] [address] 8[address]79- 1255 14 Dec, 2017 [facility] [address] 97199- 0450 Dec, [facility] [id number] [place] [address] 47877- 1406 Dec, BMI 40.0-44.9, adult Z68.41 ; Severe episode of recurrent major depressive disorder, without psychotic features F33.2 ; PTSD (post- traumatic stress disorder) F43.10 and Panic disorder F41.0 [facility] [id number] [place] [address] 59962- 8051 Dec, [facility] [id number] [place] [address] 09235- 0144 Dec, [facility] [id number] [place] [address] 42050- 3170 Dec, Essential hypertension I10 [facility] [id number] [place] [address] 13464- 2523 Dec, Severe episode of recurrent major depressive disorder, without psychotic features F33.2 [facility] [id number] [place] [address] 28486- 4529 Dec, Severe episode of recurrent major depressive disorder, without psychotic features F33.2 and Generalized anxiety disorder F41.1 [facility] [id number] [place] [address] 89348- 3720 Nov, Cervical disc disease with myelopathy M50.00 [facility] [id number] [place] [address] 88708- 3925 Nov, Cervical disc disease with myelopathy M50.00 ; Moderate persistent asthma without complication J45.40 and BMI 40.0-44.9, adult Z68.41 [facility] [id number] [place] [address] 50794- 8980 Nov, [facility] [id number] [place] [address] 56594- 7704 Nov, [facility] [id number] [place] [address] 65114- 5128 Nov, [facility] [address], [place] [address]- 2070 Nov, [facility] [address], [place] [address]- 7093 Nov, [facility] [id number], [place] [address]- 6895 Nov, [facility] [id number] [place] [address] 94608- 5673 Nov, [facility] [address], [place] [address]- 0132 Nov, [facility] [address] [place] [address] 72816- 4618 Nov, [facility] [address], [place] [address]- 9982 Nov, Severe episode of recurrent major depressive disorder, without psychotic features F33.2 ; PTSD (post-traumatic stress disorder) F43.10 ; Panic disorder F41.0 and BMI 40.0-44.9, adult Z68.41 [facility] [address] [place] [address] 12373- 4743 Nov, [facility] [address], [place] [address]- 3240 Nov, Essential hypertension I10 [facility] [address] [place] [address] 23550- 3821 Nov, Severe episode of recurrent major depressive disorder, without psychotic features F33.2 [facility] [address], [place] [address]- 3161 Nov, Acute pain of left knee M25.562 [facility] [address], [place] [address]- 5624 Nov, Severe episode of recurrent major depressive disorder, without psychotic features F33.2 ; PTSD (post-traumatic stress disorder) F43.10 ; Panic disorder F41.0 and BMI 40.0-44.9, adult Z68.41 [facility] [address] [place] [address] 8798 Oct, [facility] [id number] [place] [address], [place] [address]- 0500 Oct, [facility] [id number] [place] [address], [place] [address]- 8111 Oct, [facility] [id number] [place] [address] 19860- 8421 Oct, [facility] [id number] [place] [address], [place] [address]- 2964 Oct, Dorsalgia, unspecified M54.9 [facility] [id number] [place] [address], [place] [address]- 8735 Oct, Severe episode of recurrent major depressive disorder, without psychotic features F33.2 and Generalized anxiety disorder F41.1 [facility] [id number], [place] [address]- 4445 Oct, [facility] [id number] [place] [address] 41553- 3830 Oct, [facility] [id number] [address]- 9958 Oct, [facility] [address], [place] [address]- 9657 Oct, [facility] [address], [place] [address]- 6945 Oct, [facility] [id number] [place] [address] 57414- 6085 Oct, [facility] [id number] [address]- 3542 Oct, [facility] [address], [place] [address]- 5639 Oct, [facility] [id number] [place] [address] 66167- 3076 Sep, Dorsalgia, unspecified M54.9 [facility] [id number] [place] [address] 17439- 3026 Sep, [facility] [id number] [place] [address] 27228- 4771 Sep, [facility] [id number] [place] [address] 68556- 8693 Sep, Falling R29.6 ; Essential hypertension I10 ; Chronic obstructive pulmonary disease, unspecified COPD type J44.9 and BMI 40.0-44.9, adult Z68.41 [facility] [id number] [place] [address] 00943- 3746 Sep, [facility] [id number] [place] [address] 73392- 6557 Sep, [facility] [id number] [place] [address] 88304- 1911 Sep, [facility] [id number] [place] [address] 44110- 9329 Sep, Mild intermittent asthma without complication J45.20 [facility] [id number] [place] [address] 39824- 7825 Sep, [facility] [id number] [place] [address] 41329- 4996 Sep, [facility] [id number] [place] [address] 11975- 9072 Sep, [facility] [id number] [place] [address] 88651- 5714 Sep, [facility] [id number] [place] [address] 79456- 1694 Sep, [facility] [id number] [place] [address] 34377- 0605 Sep, [facility] [address], [place] [address]- 4809 15 Sep, 2017 Essential hypertension I10 [facility] [address], [place] [address]- 0498 15 Sep, 2017 [facility] [address], [place] [address]- 2778 15 Sep, 2017 [facility] [id number] [place] [address] 84958- 2436 15 Sep, 2017 [facility] [address], [place] [address]- 0871 14 Sep, 2017 [facility] [id number] [place] [address] 16253- 1799 14 Sep, 2017 [facility] [address] [place] [address] 54080- 4474 14 Sep, 2017 [facility] [address], [place] [address]- 7708 Sep, [facility] [address], [place] [address]- 9653 Sep, [facility] [address], [place] [address]- 8036 Sep, [facility] [address], [place] [address]- 6116 Sep, [facility] [address], [place] [address]- 2893 05 Sep, 2017 Mild intermittent asthma without complication J45.20 [facility] [address], [place] [address]- 9811 August, Essential hypertension I10 [facility] [address], [place] [address]- 4445 August, BMI 40.0-44.9, adult Z68.41 ; Dorsalgia, unspecified M54.9 ; Allergic state, initial encounter T78.40XA ; Mild intermittent asthma without complication J45.20 and 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 [facility] [id number] [place] [address] 50114- 3363 August, [facility] [id number] [place] [address] 47248- 6673 August, [facility] [id number] [place] [address] 80210- 2796 August, [facility] [id number] [place] [address] 46152- 6957 August, Reactive depression F32.9 [facility] [id number] [place] [address] 70248- 5468 August, [facility] [id number] [place] [address] 40219- 3325 August, [facility] [id number] [place] [address] 58930- 7721 August, [facility] [id number] [place] [address] 60116- 0138 August, [facility] [id number] [place] [address] 96770- 4940 August, [facility] [id number] [place] [address] 40941- 8850 August, [facility] [id number] [place] [address] 99767- 2601 August, [facility] [id number] [place] [address] 55592- 0101 August, Muscle spasms of both lower extremities M62.838 ; Essential hypertension I10 and Reactive depression F32.9 [facility] [id number] [place] [address] 28079- 6919 August, [facility] [id number] [place] [address] 02489- 6602 Jul, [facility] [id number] [address]- 8387 30 Jul, 2017 [facility] [address], [place] [address]- 7018 Jul, [facility] [address], [place] [address]- 6090 Jul, [facility] [address], [place] [address]- 1965 Jul, [facility] [address], [place] [address]- 0307 Jul, [facility] [address], [place] [address]- 7822 Jul, [facility] [address], [place] [address]- 5426 Jul, [facility] [address], [place] [address]- 4899 Jul, Essential hypertension I10 ; Other chronic pain G89.29 ; Dorsalgia, unspecified M54.9 ; Reactive depression F32.9 ; Mild intermittent asthma without complication J45.20 ; Allergic state, initial encounter T78.40XA and Muscle spasms of both lower extremities M62.838 IMMUNIZATIONS No Known Immunizations SOCIAL HISTORY Never Assessed REASON FOR VISIT f/u PLAN OF CARE Activity Details Follow Up Next available Reason: F/U VITAL SIGNS MEDICATIONS Unknown Medications RESULTS No Results PROCEDURES Procedure Date Ordered Result Body Site Psychotherapy, patient &/family, 45 minutes, established patient Jan 24, 2018 INSTRUCTIONS MEDICATIONS ADMINISTERED No Known Medications [...]
--- OUTSIDE RECORDS SUMMARY | 2018-04-06 07:59 | XMS REPORT ---
Author Author ROSALINA GRAHAM [facility] Address [address] [place] [address] Care Team Providers Care Us Administrative Law Judge Name Role Phone ROSALINA GRAHAM Unavailable PROBLEMS Type Condition ICD9-CM Code QEG71-TS Code Onset Dates Condition Status SNOMED Code Problem Reactive depression F32.9 Active 08712307 Problem Generalized anxiety disorder F41.1 Active 44398862 Problem Severe episode of recurrent major depressive disorder, without psychotic features F33.2 Active 91560363 Problem Environmental allergies Z91.09 Active 336137813 Problem Moderate persistent asthma without complication J45.40 Active 944161872 Problem PTSD (post-traumatic stress disorder) F43.10 Active 74295058 Problem Falling R29.6 Active 225088956 Problem Cervical disc disease with myelopathy M50.00 Active 32547294 Problem Panic disorder F41.0 Active 889524623 Problem Essential hypertension I10 Active 93165284 Problem Dorsalgia, unspecified M54.9 Active 257618670 Problem Other chronic pain G89.29 Active 58445898 Problem Allergic state, initial encounter T78.40XA Active 071069264 Problem Muscle spasms of both lower extremities M62.838 Active 285895151 ALLERGIES No Information ENCOUNTERS Encounter Location Date Diagnosis [facility] [id number] [address] Mar, [facility] [address], [place] [address] Feb, [facility] [id number] [place] [address]- 8450 Feb, [facility] [id number], [place] [address] Jan, [facility] [id number] [place] [address] 90776- 4443 Jan, [facility] [address], [place] [address] 9[address] Jan, [facility] [id number] [place] [address] 84037- 9944 Jan, [facility] [address], [place] [address] Jan, Cervical disc disease with myelopathy M50.00 [facility] [id number] [place] [address] 983601- 7384 Jan, Severe episode of recurrent major depressive disorder, without psychotic features F33.2 ; Panic disorder F41.0 ; PTSD (post-traumatic stress disorder) F43.10 and BMI 40.0-44.9, adult Z68.41 [facility] [address], [place] [address] Jan, Severe episode of recurrent major depressive disorder, without psychotic features F33.2 and Generalized anxiety disorder F41.1 [facility] [address], [place] [address] Jan, [facility] [address], [place] [address] 118[address] Jan, Cervical disc disease with myelopathy M50.00 [facility] [address], [place] [address] 67[address] Jan, [facility] [address], [place] [address] 36[address] Jan, [facility] [address], [place] [address] 7[address] Jan, [facility] [address], [place] [address] 6428 Jan, [facility] [address], [place] [address] Jan, [facility] [address] [address] Jan, Environmental allergies Z91.09 and BMI 40.0-44.9, adult Z68.41 [facility] [address] [address] Jan, [facility] [address] [address]- [address] Jan, [facility] [address] [address]- [address] Jan, Severe episode of recurrent major depressive disorder, without psychotic features F33.2 [address] [address] Dec, Severe episode of recurrent major depressive disorder, without psychotic features F33.2 [address] [address] [address] [address]- [address] Dec, Encounter for immunization Z23 [facility] [address] [address]- [address] Dec, [facility] [address] [address]- [address] 24 Dec, 2017 Severe episode of recurrent major depressive disorder, without psychotic features F33.2 ; PTSD (post-traumatic stress disorder) F43.10 ; Panic disorder F41.0 and BMI 40.0-44.9, adult Z68.41 [facility] [id number] [place] [address] 50642- 0464 Dec, [facility] [address] [address]- [address] Dec, [facility] [address] [address]- 4107 19 Dec, 2017 Essential hypertension I10 [facility] [address] [address]- 5306 14 Dec, 2017 [facility] [address] [address]- 1651 Dec, [facility] [id number] [place] [address] 47916- 1668 Dec, BMI 40.0-44.9, adult Z68.41 ; Severe episode of recurrent major depressive disorder, without psychotic features F33.2 ; PTSD (post- traumatic stress disorder) F43.10 and Panic disorder F41.0 [facility] [id number] [place] [address] 58728- 6971 Dec, [facility] [id number] [place] [address] 49217- 1594 Dec, [facility] [id number] [place] [address] 29967- 4817 Dec, Essential hypertension I10 [facility] [id number] [place] [address] 14220- 5470 Dec, Severe episode of recurrent major depressive disorder, without psychotic features F33.2 [facility] [id number] [place] [address] 32053- 2594 Dec, Severe episode of recurrent major depressive disorder, without psychotic features F33.2 and Generalized anxiety disorder F41.1 [facility] [id number] [place] [address] 13967- 6378 Nov, Cervical disc disease with myelopathy M50.00 [facility] [id number] [place] [address] 58467- 6431 Nov, Cervical disc disease with myelopathy M50.00 ; Moderate persistent asthma without complication J45.40 and BMI 40.0-44.9, adult Z68.41 [facility] [id number] [place] [address] 04545- 9149 Nov, [facility] [id number] [place] [address] 69761- 9116 Nov, [facility] [id number] [place] [address] 21307- 4212 Nov, [facility] [address], [place] [address]- 135[address] Nov, [facility] [address], [place] [address] Nov, [facility] [address], [place] [address]- 37[address] Nov, [facility] [id number] [place] [address] 39744- 4561 Nov, [facility] [id number] [place] [address] 46552- 0694 Nov, [facility] [id number] [place] [address] 08286- 2930 Nov, [facility] [address], [place] [address]- 38[address] Nov, Severe episode of recurrent major depressive disorder, without psychotic features F33.2 ; PTSD (post-traumatic stress disorder) F43.10 ; Panic disorder F41.0 and BMI 40.0-44.9, adult Z68.41 [facility] [address], [place] [address]- 47[address] Nov, [facility] [address], [place] [address]- 6831 Nov, Essential hypertension I10 [facility] [id number] [place] [address] 98928- 0267 Nov, Severe episode of recurrent major depressive disorder, without psychotic features F33.2 [facility] [address], [place] [address]- 0668 Nov, Acute pain of left knee M25.562 [facility] [address], [place] [address]- 3[address] Nov, Severe episode of recurrent major depressive disorder, without psychotic features F33.2 ; PTSD (post-traumatic stress disorder) F43.10 ; Panic disorder F41.0 and BMI 40.0-44.9, adult Z68.41 [facility] [address] [place] [address]- 5958 Oct, [facility] [id number] [place] [address]- 6976 Oct, [facility] [id number] [place] [address]- 5681 Oct, [facility] [id number] [place] [address], [place] [address]- 9600 Oct, [facility] [id number] [place] [address]- 3474 Oct, Dorsalgia, unspecified M54.9 [facility] [id number] [place] [address]- 1469 Oct, Severe episode of recurrent major depressive disorder, without psychotic features F33.2 and Generalized anxiety disorder F41.1 [facility] [address] [place] [address]- 5903 Oct, [facility] [address] [place] [address]- 2178 Oct, [facility] [address] [place] [address]- 9292 Oct, [facility] [address], [place] [address]- 4493 Oct, [facility] [address], [place] [address]- 0404 Oct, [facility] [address], [place] [address]- 9119 Oct, [facility] [id number], [place] [address]- 7374 Oct, [facility] [address] [place] [address]- 4852 Oct, [facility] [id number] [place] [address] 58745- 0085 Sep, Dorsalgia, unspecified M54.9 [facility] [id number] [place] [address] 48285- 8699 Sep, [facility] [id number] [place] [address] 99542- 2630 Sep, [facility] [id number] [place] [address] 77944- 9768 Sep, Falling R29.6 ; Essential hypertension I10 ; Chronic obstructive pulmonary disease, unspecified COPD type J44.9 and BMI 40.0-44.9, adult Z68.41 [facility] [id number] [place] [address] 78940- 6215 Sep, [facility] [id number] [place] [address] 17067- 5045 Sep, [facility] [id number] [place] [address] 63502- 7547 Sep, [facility] [id number] [place] [address] 76821- 8686 Sep, Mild intermittent asthma without complication J45.20 [facility] [id number] [place] [address] 74005- 3256 Sep, [facility] [id number] [place] [address] 36371- 9816 Sep, [facility] [id number] [place] [address] 72904- 9285 Sep, [facility] [id number] [place] [address] 86805- 3103 Sep, [facility] [id number] [place] [address] 44315- 6591 Sep, [facility] [id number] [place] [address] 30623- 5734 Sep, [facility] [address], [place] [address]- 3010 15 Sep, 2017 Essential hypertension I10 [facility] [address], [place] [address]- 1493 15 Sep, 2017 [facility] [address], [place] [address]- 3254 15 Sep, 2017 [facility] [id number] [place] [address] 24801- 3571 15 Sep, 2017 [facility] [address], [place] [address]- 2706 14 Sep, 2017 [facility] [address], [place] [address]- 0231 14 Sep, 2017 [facility] [id number] [place] [address] 44509- 1717 14 Sep, 2017 [facility] [id number] [place] [address] 64770- 0177 13 Sep, 2017 [facility] [address], [place] [address]- 8170 Sep, [facility] [address], [place] [address]- 4946 Sep, [facility] [address], [place] [address]- 5282 Sep, [facility] [address], [place] [address]- 3801 05 Sep, 2017 Mild intermittent asthma without complication J45.20 [facility] [address], [place] [address]- 4040 August, Essential hypertension I10 [facility] [address], [place] [address]- 4352 August, BMI 40.0-44.9, adult Z68.41 ; Dorsalgia, unspecified M54.9 ; Allergic state, initial encounter T78.40XA ; Mild intermittent asthma without complication J45.20 and 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 [facility] [id number] [place] [address] 98309- 4740 August, [facility] [id number] [place] [address] 01729- 0558 August, [facility] [id number] [place] [address] 11644- 6313 August, [facility] [id number] [place] [address] 21561- 1161 August, Reactive depression F32.9 [facility] [address] [address]- 6685 August, [facility] [id number] [place] [address] 75380- 3948 August, [facility] [id number] [place] [address] 78663- 9953 August, [facility] [id number] [place] [address] 39914- 1134 August, [facility] [id number] [place] [address] 17784- 4925 August, [facility] [id number] [place] [address] 19619- 1106 August, [facility] [id number] [place] [address] 51235- 7184 August, [facility] [id number] [place] [address] 28619- 9267 August, Muscle spasms of both lower extremities M62.838 ; Essential hypertension I10 and Reactive depression F32.9 [facility] [id number] [place] [address] 37666- 5054 August, [facility] [id number] [place] [address] 89865- 7872 Jul, [facility] [id number], [place] [address]- 2696 30 Jul, 2017 [facility] [address], [place] [address]- 0689 Jul, [facility] [address], [place] [address]- 3466 Jul, [facility] [address], [place] [address]- 2668 Jul, [facility] [address], [place] [address]- 2183 Jul, [facility] [address], [place] [address]- 6282 Jul, [facility] [address], [place] [address]- 6580 Jul, [facility] [address], [place] [address]- 2233 Jul, Essential hypertension I10 ; Other chronic pain G89.29 ; Dorsalgia, unspecified M54.9 ; Reactive depression F32.9 ; Mild intermittent asthma without complication J45.20 ; Allergic state, initial encounter T78.40XA and Muscle spasms of both lower extremities M62.838 IMMUNIZATIONS Vaccine Route Administration Date Status FLU Vaccine (History) IM Intramuscular Jan 13, 2018 Administered PCV 13 IM Intramuscular Jan 13, 2018 Administered SOCIAL HISTORY Never Assessed REASON FOR VISIT Pneumonia and flu shot PLAN OF CARE VITAL SIGNS MEDICATIONS Unknown Medications RESULTS No Results PROCEDURES Procedure Date Ordered Result Body Site PCV 13 Jan 13, 2018 FLU Vaccine (History) Jan 13, 2018 IMMUNIZATION ADMIN, EACH ADD (please include units) Jan 13, 2018 SINGLE IMMUNIZATION ADMIN Jan 13, 2018 INSTRUCTIONS MEDICATIONS ADMINISTERED No Known Medications [...]
[2018-04-06] MEDS ORDERED: PHENYLEPHRINE 100 MCG/ML 10 ML (ANESTHESIA) SYR ONE (08:00)
--- OUTSIDE RECORDS SUMMARY | 2018-04-06 08:00 | XMS REPORT ---
Author Author ROSALINA GRAHAM [facility] Address [address] [place] [address] Care Team Providers Care Assistant Winemaker Name Role Phone ROSALINA GRAHAM Unavailable PROBLEMS Type Condition ICD9-CM Code PCZ79-PN Code Onset Dates Condition Status SNOMED Code Problem Reactive depression F32.9 Active 41676095 Problem Generalized anxiety disorder F41.1 Active 86484337 Problem Severe episode of recurrent major depressive disorder, without psychotic features F33.2 Active 43096327 Problem Environmental allergies Z91.09 Active 060901472 Problem Moderate persistent asthma without complication J45.40 Active 268643105 Problem PTSD (post-traumatic stress disorder) F43.10 Active 40107983 Problem Falling R29.6 Active 329551342 Problem Cervical disc disease with myelopathy M50.00 Active 50067466 Problem Panic disorder F41.0 Active 005163677 Problem Essential hypertension I10 Active 51276077 Problem Dorsalgia, unspecified M54.9 Active 605401107 Problem Other chronic pain G89.29 Active 64944052 Problem Allergic state, initial encounter T78.40XA Active 352269580 Problem Muscle spasms of both lower extremities M62.838 Active 409093500 ALLERGIES No Information ENCOUNTERS Encounter Location Date Diagnosis [facility] [id number] [address] Mar, [facility] [address], [place] [address] Feb, [facility] [id number] [place] [address] 88233- 9902 Feb, [facility] [id number], [place] [address] Jan, [facility] [id number] [place] [address] 58983- 3580 Jan, [facility] [address], [place] [address] 5034 Jan, [facility] [id number] [place] [address] 67148- 2743 Jan, [facility] [address], [place] [address] Jan, Cervical disc disease with myelopathy M50.00 [facility] [id number] [place] [address] 445626- 4410 Jan, Severe episode of recurrent major depressive disorder, without psychotic features F33.2 ; Panic disorder F41.0 ; PTSD (post-traumatic stress disorder) F43.10 and BMI 40.0-44.9, adult Z68.41 [facility] [address], [place] [address] 99[address] Jan, Severe episode of recurrent major depressive disorder, without psychotic features F33.2 and Generalized anxiety disorder F41.1 [facility] [address], [place] [address] 86[address] Jan, [facility] [address], [place] [address] 6584 Jan, Cervical disc disease with myelopathy M50.00 [facility] [address], [place] [address] 9013 Jan, [facility] [address], [place] [address] 0112 Jan, [facility] [address], [place] [address] 5789 Jan, [facility] [address], [place] [address] 5987 Jan, [facility] [address], [place] [address] 1484 Jan, [facility] [address] [address]- [address] Jan, Environmental allergies Z91.09 and BMI 40.0-44.9, adult Z68.41 [facility] [address] [address]- [address] Jan, [facility] [address] [address]- 4618 Jan, [facility] [address] [address]- 5892 Jan, Severe episode of recurrent major depressive disorder, without psychotic features F33.2 [address] [address]- [address] Dec, Severe episode of recurrent major depressive disorder, without psychotic features F33.2 [place] [address] [address] [address]- 0103 Dec, Encounter for immunization Z23 [facility] [address] [address]- [address] Dec, [facility] [address] 10201- 3671 24 Dec, 2017 Severe episode of recurrent major depressive disorder, without psychotic features F33.2 ; PTSD (post-traumatic stress disorder) F43.10 ; Panic disorder F41.0 and BMI 40.0-44.9, adult Z68.41 [place] [id number] [place] [address] 61983- 0665 Dec, [facility] [address] [address]27- 1566 Dec, [facility] [address] 46704- 2067 19 Dec, 2017 Essential hypertension I10 [facility] [address] 7[address]32- 4601 14 Dec, 2017 [facility] [address] 21089- 9362 Dec, [facility] [id number] [place] [address] 17364- 4816 Dec, BMI 40.0-44.9, adult Z68.41 ; Severe episode of recurrent major depressive disorder, without psychotic features F33.2 ; PTSD (post- traumatic stress disorder) F43.10 and Panic disorder F41.0 [facility] [id number] [place] [address] 85421- 6760 Dec, [facility] [id number] [place] [address] 00821- 2135 Dec, [place] [id number] [place] [address] 91238- 1129 Dec, Essential hypertension I10 [place] [id number] [place] [address] 76777- 5235 Dec, Severe episode of recurrent major depressive disorder, without psychotic features F33.2 [place] [id number] [place] [address] 21718- 8957 Dec, Severe episode of recurrent major depressive disorder, without psychotic features F33.2 and Generalized anxiety disorder F41.1 [place] [id number] [place] [address] 26935- 2433 Nov, Cervical disc disease with myelopathy M50.00 [place] [id number] [place] [address] 75131- 3967 Nov, Cervical disc disease with myelopathy M50.00 ; Moderate persistent asthma without complication J45.40 and BMI 40.0-44.9, adult Z68.41 [place] [facility] [id number] [place] [address] 93627- 1104 Nov, [place] [facility] [id number] [place] [address] 66061- 4100 Nov, [facility] [id number] [place] [address] 47326- 9433 Nov, [facility] [address], [place] [address]- 2220 Nov, [facility] [address], [place] [address]- 8851 Nov, [facility] [address], [place] [address]- 1465 Nov, [facility] [id number] [place] [address] 20864- 6923 Nov, [facility] [address] [place] [address] 09879- 3632 Nov, [facility] [address] [place] [address] 05499- 1519 Nov, [facility] [address], [place] [address]- 2314 Nov, Severe episode of recurrent major depressive disorder, without psychotic features F33.2 ; PTSD (post-traumatic stress disorder) F43.10 ; Panic disorder F41.0 and BMI 40.0-44.9, adult Z68.41 [facility] [address], [place] [address]- 8797 Nov, [facility] [address], [place] [address]- 9287 Nov, Essential hypertension I10 [facility] [address] [place] [address] 35358- 1430 Nov, Severe episode of recurrent major depressive disorder, without psychotic features F33.2 [facility] [address], [place] [address]- 8433 Nov, Acute pain of left knee M25.562 [facility] [address], [place] [address]- 8042 Nov, Severe episode of recurrent major depressive disorder, without psychotic features F33.2 ; PTSD (post-traumatic stress disorder) F43.10 ; Panic disorder F41.0 and BMI 40.0-44.9, adult Z68.41 [facility] [address] [address]- 5116 Oct, [facility] [address] [address]- 8337 Oct, [facility] [address] [address]- 8120 Oct, [facility] [id number] [place] [address], [place] [address]- 5751 Oct, [facility] [id number] [address]- 7530 Oct, Dorsalgia, unspecified M54.9 [facility] [id number] [address]- 0080 Oct, Severe episode of recurrent major depressive disorder, without psychotic features F33.2 and Generalized anxiety disorder F41.1 [facility] [address] [address]- 8610 Oct, [facility] [address] [address]- 6768 Oct, [facility] [address] [address]- 9106 Oct, [facility] [address], [place] [address]- 2713 Oct, [facility] [address], [place] [address]- 4814 Oct, [facility] [address], [place] [address]- 1734 Oct, [facility] [id number], [place] [address]- 7976 Oct, [facility] [address] [address]- 1858 Oct, [facility] [id number] [place] [address] 70718- 6003 Sep, Dorsalgia, unspecified M54.9 [facility] [id number] [place] [address] 03664- 7405 Sep, [facility] [id number] [place] [address] 75588- 6072 Sep, [facility] [id number] [place] [address] 86950- 6851 Sep, Falling R29.6 ; Essential hypertension I10 ; Chronic obstructive pulmonary disease, unspecified COPD type J44.9 and BMI 40.0-44.9, adult Z68.41 [facility] [id number] [place] [address] 64389- 8197 Sep, [facility] [id number] [place] [address] 33059- 6766 Sep, [facility] [id number] [place] [address] 99990- 3040 Sep, [facility] [id number] [place] [address] 26749- 8799 Sep, Mild intermittent asthma without complication J45.20 [facility] [id number] [place] [address] 66874- 9137 Sep, [facility] [id number] [place] [address] 40581- 5265 Sep, [facility] [id number] [place] [address] 01589- 5147 Sep, [facility] [id number] [place] [address] 04773- 1252 Sep, [facility] [id number] [place] [address] 20691- 7246 Sep, [facility] [id number] [place] [address] 51375- 9657 Sep, [facility] [address], [place] [address]- 2467 15 Sep, 2017 Essential hypertension I10 [facility] [address], [place] [address]- 4662 15 Sep, 2017 [facility] [address], [place] [address]- 0055 15 Sep, 2017 [facility] [address] [place] [address] 11690- 1650 15 Sep, 2017 [facility] [address], [place] [address]- 1135 14 Sep, 2017 [facility] [address], [place] [address]- 6485 14 Sep, 2017 [facility] [address] [place] [address] 50647- 2875 14 Sep, 2017 [facility] [address] [place] [address] 21784- 1152 13 Sep, 2017 [facility] [address], [place] [address]- 8786 Sep, [facility] [address], [place] [address]- 2135 Sep, [facility] [address], [place] [address]- 4669 Sep, [facility] [address], [place] [address]- 9438 05 Sep, 2017 Mild intermittent asthma without complication J45.20 [facility] [address], [place] [address]- 0787 August, Essential hypertension I10 [facility] [address], [place] [address]- 8294 August, BMI 40.0-44.9, adult Z68.41 ; Dorsalgia, unspecified M54.9 ; Allergic state, initial encounter T78.40XA ; Mild intermittent asthma without complication J45.20 and 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 [facility] [id number] [place] [address] 56049- 4951 August, [facility] [id number] [place] [address] 21444- 4231 August, [facility] [id number] [place] [address] 53810- 4947 August, [facility] [id number] [place] [address] 72482- 6166 August, Reactive depression F32.9 [facility] [address] 97981- 4807 August, [facility] [id number] [place] [address] 78035- 6532 August, [facility] [id number] [place] [address] 99595- 5353 August, [facility] [id number] [place] [address] 24906- 2997 August, [facility] [id number] [place] [address] 50216- 3140 August, [facility] [id number] [place] [address] 45657- 2839 August, [facility] [id number] [place] [address] 69160- 6122 August, [facility] [id number] [place] [address] 48434- 3702 August, Muscle spasms of both lower extremities M62.838 ; Essential hypertension I10 and Reactive depression F32.9 [facility] [id number] [place] [address] 40329- 8740 August, [facility] [id number] [place] [address] 99616- 9187 Jul, [facility] [id number], [place] [address]- 1080 30 Jul, 2017 [facility] [address], [place] [address]- 2051 Jul, [facility] [address], [place] [address]- 2683 Jul, [facility] [address], [place] [address]- 1467 Jul, [facility] [address], [place] [address]- 9138 Jul, [facility] [address], [place] [address]- 1243 Jul, [facility] [address], [place] [address]- 2526 Jul, [facility] [address] [place] [address]- 3247 Jul, Essential hypertension I10 ; Other chronic pain G89.29 ; Dorsalgia, unspecified M54.9 ; Reactive depression F32.9 ; Mild intermittent asthma without complication J45.20 ; Allergic state, initial encounter T78.40XA and Muscle spasms of both lower extremities M62.838 IMMUNIZATIONS No Known Immunizations SOCIAL HISTORY Never Assessed REASON FOR VISIT Appointments PLAN OF CARE VITAL SIGNS MEDICATIONS Unknown [...]
--- OUTSIDE RECORDS SUMMARY | 2018-04-06 08:00 | XMS REPORT ---
Author Author LUCI RANGEL Organization [facility] Address [address] [place] [address] Care Team Providers Care Electronic Sensing Equipment Assembler Name Role Phone LUCI RANGEL Unavailable PROBLEMS Type Condition ICD9-CM Code PCP02-CE Code Onset Dates Condition Status SNOMED Code Problem Reactive depression F32.9 Active 66459785 Problem Generalized anxiety disorder F41.1 Active 94034747 Problem Severe episode of recurrent major depressive disorder, without psychotic features F33.2 Active 76412414 Problem Environmental allergies Z91.09 Active 642622211 Problem Moderate persistent asthma without complication J45.40 Active 322973731 Problem PTSD (post-traumatic stress disorder) F43.10 Active 67144778 Problem Falling R29.6 Active 945940717 Problem Cervical disc disease with myelopathy M50.00 Active 80655768 Problem Panic disorder F41.0 Active 112429590 Problem Essential hypertension I10 Active 56840219 Problem Dorsalgia, unspecified M54.9 Active 186507040 Problem Other chronic pain G89.29 Active 83264718 Problem Allergic state, initial encounter T78.40XA Active 511719378 Problem Muscle spasms of both lower extremities M62.838 Active 471447254 ALLERGIES No Information ENCOUNTERS Encounter Location Date Diagnosis [facility] [address] [address] Mar, [facility] [id number], [place] [address] Feb, [facility] [id number] [place] [address] 21809- 7526 Feb, [facility] [address], [place] [address] 2092 Jan, [facility] [id number] [place] [address] 15936- 4526 Jan, [facility] [id number], [place] [address] 1981 Jan, [facility] [id number] [place] [address] 41812- 1782 Jan, [facility] [address], [place] [address] Jan, Cervical disc disease with myelopathy M50.00 [facility] [id number] [place] [address] 62062- 6614 Jan, Severe episode of recurrent major depressive disorder, without psychotic features F33.2 ; Panic disorder F41.0 ; PTSD (post-traumatic stress disorder) F43.10 and BMI 40.0-44.9, adult Z68.41 [facility] [address], [place] [address] 9[address] Jan, Severe episode of recurrent major depressive disorder, without psychotic features F33.2 and Generalized anxiety disorder F41.1 [facility] [address], [place] [address] 1437 Jan, [facility] [id number] [place] [address] 82776- 9867 Jan, Cervical disc disease with myelopathy M50.00 [facility] [address], [place] [address] 2436 Jan, [facility] [id number], [place] [address] 4[address] Jan, [facility] [id number] [address] 6661 Jan, [facility] [id number] [place] [address] 32085- 6403 Jan, [facility] [address], [place] [address]- 2897 Jan, [facility] [id number] [place] [address] 82803- 0037 Jan, Environmental allergies Z91.09 and BMI 40.0-44.9, adult Z68.41 [facility] [address] [address]- 6420 Jan, [facility] [address] 34655- 2687 Jan, [facility] [address] 92415- 9863 Jan, Severe episode of recurrent major depressive disorder, without psychotic features F33.2 [place] [address] [address]21- 2038 Dec, Severe episode of recurrent major depressive disorder, without psychotic features F33.2 [place] [address] 20874- 6255 Dec, Encounter for immunization Z23 [facility] [address] 9[address]27- 3356 Dec, [facility] [address] 9[address]15- 2048 24 Dec, 2017 Severe episode of recurrent major depressive disorder, without psychotic features F33.2 ; PTSD (post-traumatic stress disorder) F43.10 ; Panic disorder F41.0 and BMI 40.0-44.9, adult Z68.41 [facility] [id number] [place] [address] 55133- 1144 Dec, [facility] [address] 88215- 8819 Dec, [facility] [address] 05718- 3802 Dec, Essential hypertension I10 [facility] [address] 9[address]23- 2299 14 Dec, 2017 [facility] [address] 75793- 1552 Dec, [place] [id number] [place] [address] 60201- 5340 Dec, BMI 40.0-44.9, adult Z68.41 ; Severe episode of recurrent major depressive disorder, without psychotic features F33.2 ; PTSD (post- traumatic stress disorder) F43.10 and Panic disorder F41.0 [place] [id number] [place] [address] 62147- 2282 Dec, [place] [id number] [place] [address] 47199- 2738 Dec, [place] [id number] [place] [address] 11927- 1998 Dec, Essential hypertension I10 [place] [id number] [place] [address] 43752- 2890 Dec, Severe episode of recurrent major depressive disorder, without psychotic features F33.2 [place] [id number] [place] [address] 00656- 9344 Dec, Severe episode of recurrent major depressive disorder, without psychotic features F33.2 and Generalized anxiety disorder F41.1 [place] [id number] [place] [address] 04859- 9770 Nov, Cervical disc disease with myelopathy M50.00 [place] [id number] [place] [address] 58190- 8843 Nov, Cervical disc disease with myelopathy M50.00 ; Moderate persistent asthma without complication J45.40 and BMI 40.0-44.9, adult Z68.41 [place] [id number] [place] [address] 28364- 9894 Nov, [place] [id number] [place] [address] 55636- 8876 Nov, [place] [id number] [place] [address] 48810- 7315 Nov, [facility] [address], [place] [address]- 5834 Nov, [facility] [address], [place] [address]- 0806 Nov, [facility] [id number], [place] [address]- 0194 Nov, [facility] [id number] [place] [address] 85489- 5931 Nov, [facility] [address], [place] [address]- 9881 Nov, [facility] [id number] [place] [address] 30422- 0765 Nov, [facility] [address], [place] [address]- 7632 Nov, Severe episode of recurrent major depressive disorder, without psychotic features F33.2 ; PTSD (post-traumatic stress disorder) F43.10 ; Panic disorder F41.0 and BMI 40.0-44.9, adult Z68.41 [facility] [id number] [place] [address] 91179- 6044 Nov, [facility] [address], [place] [address]- 5066 Nov, Essential hypertension I10 [facility] [id number] [place] [address] 18184- 3206 Nov, Severe episode of recurrent major depressive disorder, without psychotic features F33.2 [facility] [address], [place] [address]- 0529 Nov, Acute pain of left knee M25.562 [facility] [address], [place] [address]- 0327 Nov, Severe episode of recurrent major depressive disorder, without psychotic features F33.2 ; PTSD (post-traumatic stress disorder) F43.10 ; Panic disorder F41.0 and BMI 40.0-44.9, adult Z68.41 [facility] [id number] [place] [address]- 8797 Oct, [facility] [id number] [place] [address], [place] [address]- 7376 Oct, [facility] [id number] [place] [address], [place] [address]- 0731 Oct, [facility] [id number] [place] [address] 29551- 5372 Oct, [facility] [id number] [place] [address], [place] [address]- 4119 Oct, Dorsalgia, unspecified M54.9 [facility] [id number] [place] [address], [place] [address]- 0464 Oct, Severe episode of recurrent major depressive disorder, without psychotic features F33.2 and Generalized anxiety disorder F41.1 [facility] [id number] [address]- 7120 Oct, [facility] [id number] [place] [address] 02950- 1024 Oct, [facility] [id number] [address]- 6508 Oct, [facility] [id number], [place] [address]- 3329 Oct, [facility] [address], [place] [address]- 5318 Oct, [facility] [id number] [place] [address] 65229- 8877 Oct, [facility] [id number] [place] [address]- 5620 Oct, [facility] [address], [place] [address]- 0913 Oct, [facility] [id number] [place] [address] 17521- 7292 Sep, Dorsalgia, unspecified M54.9 [facility] [id number] [place] [address] 01076- 9008 Sep, [facility] [id number] [place] [address] 07020- 5567 Sep, [facility] [id number] [place] [address] 53139- 0363 Sep, Falling R29.6 ; Essential hypertension I10 ; Chronic obstructive pulmonary disease, unspecified COPD type J44.9 and BMI 40.0-44.9, adult Z68.41 [facility] [id number] [place] [address] 11836- 6512 Sep, [facility] [id number] [place] [address] 02969- 1039 Sep, [facility] [id number] [place] [address] 71961- 0792 Sep, [facility] [id number] [place] [address] 09437- 6799 Sep, Mild intermittent asthma without complication J45.20 [facility] [id number] [place] [address] 61538- 7355 Sep, [facility] [id number] [place] [address] 78588- 4946 Sep, [facility] [id number] [place] [address] 19384- 8520 Sep, [facility] [id number] [place] [address] 05614- 3766 Sep, [facility] [id number] [place] [address] 84165- 2437 Sep, [facility] [id number] [place] [address] 38497- 6179 Sep, [facility] [address], [place] [address]- 4711 15 Sep, 2017 Essential hypertension I10 [facility] [address], [place] [address]- 3726 15 Sep, 2017 [facility] [address], [place] [address]- 5851 15 Sep, 2017 [facility] [id number] [place] [address] 14057- 1526 15 Sep, 2017 [facility] [address], [place] [address]- 5316 14 Sep, 2017 [facility] [id number] [place] [address] 89272- 0209 14 Sep, 2017 [facility] [id number] [place] [address] 23718- 3573 14 Sep, 2017 [facility] [address], [place] [address]- 2611 Sep, [facility] [address], [place] [address]- 4521 Sep, [facility] [address], [place] [address]- 8066 Sep, [facility] [address], [place] [address]- 7965 Sep, [facility] [address], [place] [address]- 9470 05 Sep, 2017 Mild intermittent asthma without complication J45.20 [facility] [address], [place] [address]- 6620 August, Essential hypertension I10 [facility] [address], [place] [address]- 1964 August, BMI 40.0-44.9, adult Z68.41 ; Dorsalgia, unspecified M54.9 ; Allergic state, initial encounter T78.40XA ; Mild intermittent asthma without complication J45.20 and 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 [facility] [id number] [place] [address] 93685- 9823 August, [facility] [id number] [place] [address] 80984- 2994 August, [facility] [id number] [place] [address] 51685- 3539 August, [facility] [id number] [place] [address] 72010- 6482 August, Reactive depression F32.9 [facility] [id number] [place] [address] 90325- 3347 August, [facility] [id number] [place] [address] 79211- 7932 August, [facility] [id number] [place] [address] 09034- 9429 August, [facility] [id number] [place] [address] 46382- 4400 August, [facility] [id number] [place] [address] 43361- 0065 August, [facility] [id number] [place] [address] 45232- 2681 August, [facility] [id number] [place] [address] 06907- 2523 August, [facility] [id number] [place] [address] 14816- 6553 August, Muscle spasms of both lower extremities M62.838 ; Essential hypertension I10 and Reactive depression F32.9 [facility] [id number] [place] [address] 28218- 9257 August, [facility] [id number] [place] [address] 58435- 4690 Jul, [facility] [address], [place] [address]- 6660 Jul, [facility] [address], [place] [address]- 7340 Jul, [facility] [address], [place] [address]- 3519 Jul, [facility] [address], [place] [address]- 5025 Jul, [facility] [address], [place] [address]- 3515 Jul, [facility] [id number] [place] [address] 38024- 0827 Jul, [facility] [address], [place] [address]- 8933 Jul, [facility] [address], [place] [address]- 7519 Jul, Essential hypertension I10 ; Other chronic pain G89.29 ; Dorsalgia, unspecified M54.9 ; Reactive depression F32.9 ; Mild intermittent asthma without complication J45.20 ; Allergic state, initial encounter T78.40XA and Muscle spasms of both lower extremities M62.838 IMMUNIZATIONS No Known Immunizations SOCIAL HISTORY Never Assessed REASON FOR VISIT Re:RE:joselyn ap PLAN OF CARE VITAL SIGNS MEDICATIONS Unknown [...]
--- OUTSIDE RECORDS SUMMARY | 2018-04-06 08:00 | XMS REPORT ---
Author Author ROSALINA GRAHAM [facility] Address [address] [place] [address] Care Team Providers Care Senior Quality Assurance Engineer Name Role Phone ROSALINA GRAHAM Unavailable PROBLEMS Type Condition ICD9-CM Code PAS32-FX Code Onset Dates Condition Status SNOMED Code Problem Reactive depression F32.9 Active 21565976 Problem Generalized anxiety disorder F41.1 Active 87571244 Problem Severe episode of recurrent major depressive disorder, without psychotic features F33.2 Active 62126442 Problem Environmental allergies Z91.09 Active 946462090 Problem Moderate persistent asthma without complication J45.40 Active 088272932 Problem PTSD (post-traumatic stress disorder) F43.10 Active 50494586 Problem Falling R29.6 Active 845335912 Problem Cervical disc disease with myelopathy M50.00 Active 68823664 Problem Panic disorder F41.0 Active 623170305 Problem Essential hypertension I10 Active 18709489 Problem Dorsalgia, unspecified M54.9 Active 965340255 Problem Other chronic pain G89.29 Active 34468267 Problem Allergic state, initial encounter T78.40XA Active 774688191 Problem Muscle spasms of both lower extremities M62.838 Active 384773701 ALLERGIES No Information ENCOUNTERS Encounter Location Date Diagnosis [facility] [id number], [place] [address] Mar, [facility] [address], [place] [address] Feb, [facility] [id number] [place] [address]7090- 6613 Feb, [facility] [id number], [place] [address] Jan, [facility] [id number] [place] [address] 31623- 2448 Jan, [facility] [address], [place] [address] 0[address] Jan, [facility] [id number] [place] [address] 06454- 0068 Jan, [facility] [address], [place] [address] Jan, Cervical disc disease with myelopathy M50.00 [facility] [id number] [place] [address] 371444- 4727 Jan, Severe episode of recurrent major depressive disorder, without psychotic features F33.2 ; Panic disorder F41.0 ; PTSD (post-traumatic stress disorder) F43.10 and BMI 40.0-44.9, adult Z68.41 [facility] [address], [place] [address] Jan, Severe episode of recurrent major depressive disorder, without psychotic features F33.2 and Generalized anxiety disorder F41.1 [facility] [address], [place] [address] 6[address] Jan, [facility] [address], [place] [address] 7969 Jan, Cervical disc disease with myelopathy M50.00 [facility] [address], [place] [address] 7[address] Jan, [facility] [address], [place] [address] 22[address] Jan, [facility] [address], [place] [address] 2835 Jan, [facility] [address], [place] [address] 137[address] Jan, [facility] [address], [place] [address] 49[address] Jan, [facility] [address] [address] Jan, Environmental allergies Z91.09 and BMI 40.0-44.9, adult Z68.41 [facility] [address] [address]- [address] Jan, [facility] [address] [address]- [address] Jan, [facility] [address] [address]- 9[address] Jan, Severe episode of recurrent major depressive disorder, without psychotic features F33.2 [facility] [address] [address] Dec, Severe episode of recurrent major depressive disorder, without psychotic features F33.2 [facility] [address] [address]- [address]131 Dec, Encounter for immunization Z23 [facility] [address] [address] Dec, [facility] [address] [address]- 0443 24 Dec, 2017 Severe episode of recurrent major depressive disorder, without psychotic features F33.2 ; PTSD (post-traumatic stress disorder) F43.10 ; Panic disorder F41.0 and BMI 40.0-44.9, adult Z68.41 [facility] [id number] [place] [address] 86215- 3872 Dec, [facility] [address] 8[address]- 8686 Dec, [facility] [address] 18146- 2114 19 Dec, 2017 Essential hypertension I10 [facility] [address] [address]- 3902 14 Dec, 2017 [facility] [address] 08221- 6587 Dec, [facility] [id number] [place] [address] 54817- 6518 Dec, BMI 40.0-44.9, adult Z68.41 ; Severe episode of recurrent major depressive disorder, without psychotic features F33.2 ; PTSD (post- traumatic stress disorder) F43.10 and Panic disorder F41.0 [facility] [id number] [place] [address] 27513- 7717 Dec, [facility] [id number] [place] [address] 71038- 5743 Dec, [facility] [id number] [place] [address] 91368- 5425 Dec, Essential hypertension I10 [facility] [id number] [place] [address] 96632- 7023 Dec, Severe episode of recurrent major depressive disorder, without psychotic features F33.2 [facility] [id number] [place] [address] 06885- 3314 Dec, Severe episode of recurrent major depressive disorder, without psychotic features F33.2 and Generalized anxiety disorder F41.1 [facility] [id number] [place] [address] 63402- 3579 Nov, Cervical disc disease with myelopathy M50.00 [facility] [id number] [place] [address] 38976- 2325 Nov, Cervical disc disease with myelopathy M50.00 ; Moderate persistent asthma without complication J45.40 and BMI 40.0-44.9, adult Z68.41 [facility] [id number] [place] [address] 90021- 5482 Nov, [facility] [id number] [place] [address] 13994- 0696 Nov, [facility] [id number] [place] [address] 11195- 2844 Nov, [facility] [address], [place] [address] 45[address] Nov, [facility] [address], [place] [address] 2596 Nov, [facility] [address], [place] [address]- 9[address] Nov, [facility] [id number] [place] [address] 41331- 4330 Nov, [facility] [id number] [place] [address] 63078- 7647 Nov, [facility] [id number] [place] [address] 47768- 2142 Nov, [facility] [address], [place] [address]- 5646 Nov, Severe episode of recurrent major depressive disorder, without psychotic features F33.2 ; PTSD (post-traumatic stress disorder) F43.10 ; Panic disorder F41.0 and BMI 40.0-44.9, adult Z68.41 [facility] [address], [place] [address] 0[address] Nov, [facility] [address], [place] [address]- 3708 Nov, Essential hypertension I10 [facility] [id number] [place] [address] 19641- 5995 Nov, Severe episode of recurrent major depressive disorder, without psychotic features F33.2 [facility] [address], [place] [address]- 3375 Nov, Acute pain of left knee M25.562 [facility] [address], [place] [address] 0192 Nov, Severe episode of recurrent major depressive disorder, without psychotic features F33.2 ; PTSD (post-traumatic stress disorder) F43.10 ; Panic disorder F41.0 and BMI 40.0-44.9, adult Z68.41 [facility] [id number] [address]- 2056 Oct, [facility] [id number] [address]- 6107 Oct, [facility] [id number] [place] [address]- 7878 Oct, [facility] [id number] [place] [address], [place] [address]- 7910 Oct, [facility] [id number] [place] [address]- 5929 Oct, Dorsalgia, unspecified M54.9 [facility] [id number] [address]- 7650 Oct, Severe episode of recurrent major depressive disorder, without psychotic features F33.2 and Generalized anxiety disorder F41.1 [facility] [id number] [address]- 7277 Oct, [facility] [id number] [address]- 4234 Oct, [facility] [id number] [place] [address]- 9869 Oct, [facility] [id number], [place] [address]- 5279 Oct, [facility] [address], [place] [address]- 5578 Oct, [facility] [id number], [place] [address]- 1209 Oct, [facility] [id number], [place] [address]- 5821 Oct, [facility] [id number] [place] [address]- 2212 Oct, [facility] [id number] [place] [address] 49295- 5251 Sep, Dorsalgia, unspecified M54.9 [facility] [id number] [place] [address] 66450- 3778 Sep, [facility] [id number] [place] [address] 51049- 2156 Sep, [facility] [id number] [place] [address] 44023- 9576 Sep, Falling R29.6 ; Essential hypertension I10 ; Chronic obstructive pulmonary disease, unspecified COPD type J44.9 and BMI 40.0-44.9, adult Z68.41 [facility] [id number] [place] [address] 14402- 4281 Sep, [facility] [id number] [place] [address] 51835- 3774 Sep, [facility] [id number] [place] [address] 15018- 4151 Sep, [facility] [id number] [place] [address] 27787- 3391 Sep, Mild intermittent asthma without complication J45.20 [facility] [id number] [place] [address] 27084- 8251 Sep, [facility] [id number] [place] [address] 26627- 2449 Sep, [facility] [id number] [place] [address] 51329- 3281 Sep, [facility] [id number] [place] [address] 61508- 3620 Sep, [facility] [id number] [place] [address] 79465- 9787 Sep, [facility] [id number] [place] [address] 53719- 4073 Sep, [facility] [address], [place] [address]- 5071 15 Sep, 2017 Essential hypertension I10 [facility] [address], [place] [address]- 0069 15 Sep, 2017 [facility] [address], [place] [address]- 1825 15 Sep, 2017 [facility] [id number] [place] [address] 95236- 6206 15 Sep, 2017 [facility] [address], [place] [address]- 6000 14 Sep, 2017 [facility] [address], [place] [address]- 6886 14 Sep, 2017 [facility] [id number] [place] [address] 70967- 4769 14 Sep, 2017 [facility] [id number] [place] [address] 97695- 6227 13 Sep, 2017 [facility] [address], [place] [address]- 9211 Sep, [facility] [address], [place] [address]- 8136 Sep, [facility] [address], [place] [address]- 6161 Sep, [facility] [address], [place] [address]- 9599 05 Sep, 2017 Mild intermittent asthma without complication J45.20 [facility] [address], [place] [address]- 2517 August, Essential hypertension I10 [facility] [address], [place] [address]- 9610 August, BMI 40.0-44.9, adult Z68.41 ; Dorsalgia, unspecified M54.9 ; Allergic state, initial encounter T78.40XA ; Mild intermittent asthma without complication J45.20 and 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 [facility] [id number] [place] [address] 83179- 2155 August, [facility] [id number] [place] [address] 68238- 1921 August, [facility] [id number] [place] [address] 86223- 7647 August, [facility] [id number] [place] [address] 54869- 8014 August, Reactive depression F32.9 [facility] [address] [address]69- 1627 August, [facility] [id number] [place] [address] 48694- 6067 August, [facility] [id number] [place] [address] 65726- 1521 August, [facility] [id number] [place] [address] 24349- 2875 August, [facility] [id number] [place] [address] 12180- 5129 August, [facility] [id number] [place] [address] 61020- 9128 August, [facility] [id number] [place] [address] 74608- 1738 August, [facility] [id number] [place] [address] 79449- 9245 August, Muscle spasms of both lower extremities M62.838 ; Essential hypertension I10 and Reactive depression F32.9 [facility] [id number] [place] [address] 33062- 5346 August, [facility] [id number] [place] [address] 26111- 7854 Jul, [facility] [id number], [place] [address]- 6634 30 Jul, 2017 [facility] [address], [place] [address]- 3941 Jul, [facility] [address], [place] [address]- 8910 Jul, [facility] [address], [place] [address]- 9529 Jul, [facility] [address], [place] [address]- 0295 Jul, [facility] [address], [place] [address]- 7980 Jul, [facility] [address], [place] [address]- 0019 Jul, [facility] [address], [place] [address]- 2139 Jul, Essential hypertension I10 ; Other chronic pain G89.29 ; Dorsalgia, unspecified M54.9 ; Reactive depression F32.9 ; Mild intermittent asthma without complication J45.20 ; Allergic state, initial encounter T78.40XA and Muscle spasms of both lower extremities M62.838 IMMUNIZATIONS No Known Immunizations SOCIAL HISTORY Never Assessed REASON FOR VISIT Allergy rx PLAN OF CARE VITAL SIGNS MEDICATIONS Unknown [...]
--- OUTSIDE RECORDS SUMMARY | 2018-04-06 08:00 | XMS REPORT ---
Author Author LUCI RANGEL Organization [facility] Address [address] [place] [address] Care Team Providers Care Contract Specialist Name Role Phone LUCI RANGEL Unavailable PROBLEMS Type Condition ICD9-CM Code LEL37-XH Code Onset Dates Condition Status SNOMED Code Problem Reactive depression F32.9 Active 11019505 Problem Generalized anxiety disorder F41.1 Active 48636688 Problem Severe episode of recurrent major depressive disorder, without psychotic features F33.2 Active 96691482 Problem Environmental allergies Z91.09 Active 486597606 Problem Moderate persistent asthma without complication J45.40 Active 957668487 Problem PTSD (post-traumatic stress disorder) F43.10 Active 83198083 Problem Falling R29.6 Active 809041619 Problem Cervical disc disease with myelopathy M50.00 Active 92377940 Problem Panic disorder F41.0 Active 095469866 Problem Essential hypertension I10 Active 17201333 Problem Dorsalgia, unspecified M54.9 Active 038688606 Problem Other chronic pain G89.29 Active 16956034 Problem Allergic state, initial encounter T78.40XA Active 602223383 Problem Muscle spasms of both lower extremities M62.838 Active 385676600 ALLERGIES No Information ENCOUNTERS Encounter Location Date Diagnosis [facility] [address] [address] Mar, [facility] [address] [address] Feb, [facility] [id number] [place] [address] 81730- 5390 Feb, [facility] [address] [address] Jan, [facility] [id number] [place] [address] 99684- 2474 Jan, [facility] [address] [address] Jan, [facility] [id number] [place] [address] 45007- 8775 Jan, [facility] [address], [place] [address] Jan, Cervical disc disease with myelopathy M50.00 [facility] [id number] [place] [address] 44967- 8262 Jan, Severe episode of recurrent major depressive disorder, without psychotic features F33.2 ; Panic disorder F41.0 ; PTSD (post-traumatic stress disorder) F43.10 and BMI 40.0-44.9, adult Z68.41 [facility] [address], [place] [address] Jan, Severe episode of recurrent major depressive disorder, without psychotic features F33.2 and Generalized anxiety disorder F41.1 [facility] [address], [place] [address] Jan, [facility] [id number] [place] [address] 36328- 6756 Jan, Cervical disc disease with myelopathy M50.00 [facility] [address] [address] 18[address] Jan, [facility] [address], [place] [address] 3[address] Jan, [facility] [id number] [address] 350[address] Jan, [facility] [id number] [place] [address] 77650- 6166 Jan, [facility] [address], [place] [address] 4[address] Jan, [facility] [id number] [place] [address] 65934- 8935 Jan, Environmental allergies Z91.09 and BMI 40.0-44.9, adult Z68.41 [facility] [address] [address]- 6491 Jan, [facility] [address] [address]- 0451 Jan, [facility] [address] 6[address]- 3009 Jan, Severe episode of recurrent major depressive disorder, without psychotic features F33.2 [place] [facility] [address] [address]- 5365 Dec, Severe episode of recurrent major depressive disorder, without psychotic features F33.2 [place] [address] [address]- 8341 Dec, Encounter for immunization Z23 [facility] [address] [address]- 3022 Dec, [facility] [address] 63687- 5110 24 Dec, 2017 Severe episode of recurrent major depressive disorder, without psychotic features F33.2 ; PTSD (post-traumatic stress disorder) F43.10 ; Panic disorder F41.0 and BMI 40.0-44.9, adult Z68.41 [facility] [id number] [place] [address] 48382- 5635 Dec, [facility] [address] 78008- 1677 Dec, [facility] [address] 63620- 2868 Dec, Essential hypertension I10 [facility] [address] 8[address]22- 4238 14 Dec, 2017 [facility] [address] 75837- 9178 Dec, [place] [id number] [place] [address] 56289- 0034 Dec, BMI 40.0-44.9, adult Z68.41 ; Severe episode of recurrent major depressive disorder, without psychotic features F33.2 ; PTSD (post- traumatic stress disorder) F43.10 and Panic disorder F41.0 [place] [facility] [id number] [place] [address] 12543- 2562 Dec, [facility] [id number] [place] [address] 54710- 2817 Dec, [facility] [id number] [place] [address] 52131- 6810 Dec, Essential hypertension I10 [facility] [id number] [place] [address] 64119- 2167 Dec, Severe episode of recurrent major depressive disorder, without psychotic features F33.2 [facility] [id number] [place] [address] 59911- 8027 Dec, Severe episode of recurrent major depressive disorder, without psychotic features F33.2 and Generalized anxiety disorder F41.1 [facility] [facility] [id number] [place] [address] 64888- 2592 Nov, Cervical disc disease with myelopathy M50.00 [facility] [id number] [place] [address] 21506- 6865 Nov, Cervical disc disease with myelopathy M50.00 ; Moderate persistent asthma without complication J45.40 and BMI 40.0-44.9, adult Z68.41 [facility] [id number] [place] [address] 54733- 8635 Nov, [facility] [id number] [place] [address] 23795- 7090 Nov, [facility] [id number] [place] [address] 98103- 0103 Nov, [facility] [address], [place] [address] 9228 Nov, [facility] [address], [place] [address]- 6644 Nov, [facility] [id number], [place] [address] 9630 Nov, [facility] [address] [place] [address] 58995- 2599 Nov, [facility] [address], [place] [address]- 5117 Nov, [facility] [address] [place] [address] 76364- 0269 Nov, [facility] [address], [place] [address]- 6608 Nov, Severe episode of recurrent major depressive disorder, without psychotic features F33.2 ; PTSD (post-traumatic stress disorder) F43.10 ; Panic disorder F41.0 and BMI 40.0-44.9, adult Z68.41 [facility] [address] [place] [address] 48917- 3101 Nov, [facility] [address], [place] [address]- 8921 Nov, Essential hypertension I10 [facility] [address] [place] [address] 58753- 8299 Nov, Severe episode of recurrent major depressive disorder, without psychotic features F33.2 [facility] [address], [place] [address]- 7371 Nov, Acute pain of left knee M25.562 [facility] [address], [place] [address]- 2445 Nov, Severe episode of recurrent major depressive disorder, without psychotic features F33.2 ; PTSD (post-traumatic stress disorder) F43.10 ; Panic disorder F41.0 and BMI 40.0-44.9, adult Z68.41 [facility] [address] [place] [address] 8097 Oct, [facility] [id number] [place] [address], [place] [address]- 8111 Oct, [facility] [id number] [place] [address], [place] [address]- 5412 Oct, [facility] [id number] [place] [address] 51636- 8356 Oct, [facility] [id number] [place] [address], [place] [address]- 7591 Oct, Dorsalgia, unspecified M54.9 [facility] [id number] [place] [address], [place] [address]- 5291 Oct, Severe episode of recurrent major depressive disorder, without psychotic features F33.2 and Generalized anxiety disorder F41.1 [facility] [address] [address]- 5077 Oct, [facility] [id number] [place] [address] 71562- 1617 Oct, [facility] [address] [address]- 2218 Oct, [facility] [address], [place] [address]- 2014 Oct, [facility] [address], [place] [address]- 4741 Oct, [facility] [id number] [place] [address] 96047- 3797 Oct, [facility] [address] [place] [address]- 3289 Oct, [facility] [address], [place] [address]- 1510 Oct, [facility] [id number] [place] [address] 96152- 6804 Sep, Dorsalgia, unspecified M54.9 [facility] [id number] [place] [address] 33362- 8157 Sep, [facility] [id number] [place] [address] 67766- 8488 Sep, [facility] [id number] [place] [address] 32229- 4342 Sep, Falling R29.6 ; Essential hypertension I10 ; Chronic obstructive pulmonary disease, unspecified COPD type J44.9 and BMI 40.0-44.9, adult Z68.41 [facility] [id number] [place] [address] 68541- 6204 Sep, [facility] [id number] [place] [address] 87137- 5327 Sep, [facility] [id number] [place] [address] 71691- 4367 Sep, [facility] [id number] [place] [address] 38030- 5906 Sep, Mild intermittent asthma without complication J45.20 [facility] [id number] [place] [address] 64665- 4822 Sep, [facility] [id number] [place] [address] 95496- 4518 Sep, [facility] [id number] [place] [address] 54554- 8694 Sep, [facility] [id number] [place] [address] 52856- 7966 Sep, [facility] [id number] [place] [address] 62670- 7812 Sep, [facility] [id number] [place] [address] 80670- 3507 Sep, [facility] [address], [place] [address]- 2867 15 Sep, 2017 Essential hypertension I10 [facility] [address], [place] [address]- 0027 15 Sep, 2017 [facility] [address], [place] [address]- 8155 15 Sep, 2017 [facility] [address] [place] [address] 44744- 0068 15 Sep, 2017 [facility] [address], [place] [address]- 4563 14 Sep, 2017 [facility] [address] [place] [address] 97618- 2642 14 Sep, 2017 [facility] [address] [place] [address] 90027- 8006 14 Sep, 2017 [facility] [address], [place] [address]- 6330 Sep, [facility] [address], [place] [address]- 3470 Sep, [facility] [address], [place] [address]- 8447 Sep, [facility] [address], [place] [address]- 7108 Sep, [facility] [address], [place] [address]- 2228 05 Sep, 2017 Mild intermittent asthma without complication J45.20 [facility] [address], [place] [address]- 3163 August, Essential hypertension I10 [facility] [address], [place] [address]- 4218 August, BMI 40.0-44.9, adult Z68.41 ; Dorsalgia, unspecified M54.9 ; Allergic state, initial encounter T78.40XA ; Mild intermittent asthma without complication J45.20 and 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 [facility] [id number] [place] [address] 76710- 9856 August, [facility] [id number] [place] [address] 07565- 9142 August, [facility] [id number] [place] [address] 35552- 3709 August, [facility] [id number] [place] [address] 17033- 2760 August, Reactive depression F32.9 [facility] [id number] [place] [address] 79211- 6508 August, [facility] [id number] [place] [address] 12600- 2448 August, [facility] [id number] [place] [address] 20292- 1097 August, [facility] [id number] [place] [address] 72532- 9576 August, [facility] [id number] [place] [address] 00943- 7382 August, [facility] [id number] [place] [address] 41630- 7097 August, [facility] [id number] [place] [address] 86701- 5999 August, [facility] [id number] [place] [address] 83384- 8322 August, Muscle spasms of both lower extremities M62.838 ; Essential hypertension I10 and Reactive depression F32.9 [facility] [id number] [place] [address] 45803- 8455 August, [facility] [id number] [place] [address] 40462- 5129 Jul, [facility] [id number] [address]- 4099 30 Jul, 2017 [facility] [address], [place] [address]- 9878 Jul, [facility] [address], [place] [address]- 9078 Jul, [facility] [address], [place] [address]- 9230 Jul, [facility] [address], [place] [address]- 1541 Jul, [facility] [address] [place] [address] 84624- 9906 Jul, [facility] [address], [place] [address]- 5677 Jul, [facility] [address] [address]- 8557 Jul, Essential hypertension I10 ; Other chronic pain G89.29 ; Dorsalgia, unspecified M54.9 ; Reactive depression F32.9 ; Mild intermittent asthma without complication J45.20 ; Allergic state, initial encounter T78.40XA and Muscle spasms of both lower extremities M62.838 IMMUNIZATIONS No Known Immunizations SOCIAL HISTORY Never Assessed REASON FOR VISIT [facility] PLAN OF CARE VITAL SIGNS MEDICATIONS [...]
--- OUTSIDE RECORDS SUMMARY | 2018-04-06 08:01 | XMS REPORT ---
Author Author ROSALINA GRAHAM [facility] Address [address] [place] [address] Care Team Providers Care Laundry Supervisor Name Role Phone ORSALINA GRAHAM Unavailable PROBLEMS Type Condition ICD9-CM Code FQY61-AR Code Onset Dates Condition Status SNOMED Code Problem Reactive depression F32.9 Active 59344888 Problem Generalized anxiety disorder F41.1 Active 23658600 Problem Severe episode of recurrent major depressive disorder, without psychotic features F33.2 Active 72809832 Problem Environmental allergies Z91.09 Active 206154040 Problem Moderate persistent asthma without complication J45.40 Active 581816309 Problem PTSD (post-traumatic stress disorder) F43.10 Active 70234123 Problem Falling R29.6 Active 446015427 Problem Cervical disc disease with myelopathy M50.00 Active 07908429 Problem Panic disorder F41.0 Active 377762179 Problem Essential hypertension I10 Active 72421927 Problem Dorsalgia, unspecified M54.9 Active 743861202 Problem Other chronic pain G89.29 Active 75387658 Problem Allergic state, initial encounter T78.40XA Active 441853454 Problem Muscle spasms of both lower extremities M62.838 Active 011536547 ALLERGIES No Information ENCOUNTERS Encounter Location Date Diagnosis [facility] [id number], [place] [address] Mar, [facility] [address], [place] [address] Feb, [facility] [id number] [place] [address] 91537- 0895 Feb, [facility] [id number], [place] [address] 7600 Jan, [facility] [id number] [place] [address] 53848- 5083 Jan, [facility] [address], [place] [address] 7251 Jan, [facility] [id number] [place] [address] 47821- 2052 Jan, [facility] [id number] [place] [address] 94892- 7727 Jan, Severe episode of recurrent major depressive disorder, without psychotic features F33.2 ; Panic disorder F41.0 ; PTSD (post-traumatic stress disorder) F43.10 and BMI 40.0-44.9, adult Z68.41 [facility] [id number] [place] [address] 47082- 2138 Jan, Severe episode of recurrent major depressive disorder, without psychotic features F33.2 and Generalized anxiety disorder F41.1 [facility] [id number] [place] [address] 47210- 6416 Jan, [facility] [id number] [place] [address] 71279- 2555 Jan, Cervical disc disease with myelopathy M50.00 [facility] [id number] [place] [address] 70203- 6821 Jan, [facility] [id number] [place] [address] 58064- 2025 Jan, [facility] [id number] [place] [address] 74920- 8545 Jan, [facility] [id number] [place] [address] 35101- 1414 Jan, [facility] [id number] [place] [address] 99019- 0335 Jan, [facility] [address], [place] [address] 2077 Jan, Environmental allergies Z91.09 and BMI 40.0-44.9, adult Z68.41 [facility] [address], [place] [address]- 0854 Jan, [facility] [id number] [place] [address] 16304- 6503 Jan, [facility] [id number] [place] [address] 27367- 4544 Jan, Severe episode of recurrent major depressive disorder, without psychotic features F33.2 [facility] [id number] [place] [address] 37083- 9551 Dec, Severe episode of recurrent major depressive disorder, without psychotic features F33.2 [facility] [id number] [place] [address] 42930- 9709 Dec, Encounter for immunization Z23 [facility] [id number] [place] [address] 77967- 4458 Dec, [facility] [id number] [place] [address] 72917- 6171 24 Dec, 2017 Severe episode of recurrent major depressive disorder, without psychotic features F33.2 ; PTSD (post-traumatic stress disorder) F43.10 ; Panic disorder F41.0 and BMI 40.0-44.9, adult Z68.41 [facility] [id number] [place] [address] 22628- 3124 Dec, [facility] [id number] [place] [address] 89842- 9232 Dec, [facility] [id number] [place] [address] 45101- 9985 Dec, Essential hypertension I10 [facility] [id number] [place] [address] 25828- 1468 14 Dec, 2017 [facility] [id number] [place] [address] 78540- 6823 Dec, [facility] [id number] [place] [address] 32669- 9781 Dec, BMI 40.0-44.9, adult Z68.41 ; Severe episode of recurrent major depressive disorder, without psychotic features F33.2 ; PTSD (post- traumatic stress disorder) F43.10 and Panic disorder F41.0 [facility] [id number] [place] [address] 96184- 5976 Dec, [facility] [id number] [place] [address] 36499- 9713 Dec, [facility] [id number] [place] [address] 88941- 5779 Dec, Essential hypertension I10 [facility] [address] [address]39- 6814 Dec, Severe episode of recurrent major depressive disorder, without psychotic features F33.2 [facility] [id number] [place] [address] 38491- 8066 Dec, Severe episode of recurrent major depressive disorder, without psychotic features F33.2 and Generalized anxiety disorder F41.1 [facility] [id number] [place] [address] 87488- 9745 Nov, Cervical disc disease with myelopathy M50.00 [facility] [id number] [place] [address] 37709- 6992 Nov, Cervical disc disease with myelopathy M50.00 ; Moderate persistent asthma without complication J45.40 and BMI 40.0-44.9, adult Z68.41 [facility] [id number] [place] [address] 37025- 4834 Nov, [facility] [id number] [place] [address] 50308- 0428 Nov, [facility] [id number] [place] [address] 66232- 7558 Nov, [facility] [id number] [place] [address] 56261- 0499 Nov, [facility] [address], [place] [address]- 5516 Nov, [facility] [id number] [place] [address] 67203- 2868 Nov, [facility] [id number] [place] [address] 05351- 5024 Nov, [facility] [id number] [place] [address] 18358- 1684 Nov, [facility] [id number] [place] [address] 38771- 4207 Nov, [facility] [id number] [place] [address] 68944- 8279 Nov, Severe episode of recurrent major depressive disorder, without psychotic features F33.2 ; PTSD (post-traumatic stress disorder) F43.10 ; Panic disorder F41.0 and BMI 40.0-44.9, adult Z68.41 [facility] [id number] [place] [address] 97720- 6799 Nov, [facility] [id number] [place] [address] 10275- 1754 Nov, Essential hypertension I10 [facility] [id number] [place] [address] 84364- 1053 Nov, Severe episode of recurrent major depressive disorder, without psychotic features F33.2 [facility] [address], [place] [address]- 9266 Nov, Acute pain of left knee M25.562 [facility] [address], [place] [address]- 3119 Nov, Severe episode of recurrent major depressive disorder, without psychotic features F33.2 ; PTSD (post-traumatic stress disorder) F43.10 ; Panic disorder F41.0 and BMI 40.0-44.9, adult Z68.41 [facility] [id number] [place] [address] 52597- 8466 Oct, [facility] [address] [facility] [id number] [place] [address]- 4613 Oct, [facility] [address] [facility] [id number] [place] [address], [place] [address]- 3607 Oct, [facility] [address] [facility] [id number] [place] [address]- 2640 Oct, [facility] [address] [facility] [id number] [place] [address], [place] [address]- 1718 Oct, Dorsalgia, unspecified M54.9 [facility] [address] [facility] [id number] [place] [address]- 5366 Oct, Severe episode of recurrent major depressive disorder, without psychotic features F33.2 and Generalized anxiety disorder F41.1 [facility] [address] [place] [address]- 2730 Oct, [facility] [id number] [place] [address] 81488- 5478 Oct, [facility] [id number] [place] [address]- 5751 Oct, [facility] [address], [place] [address]- 9404 Oct, [facility] [address], [place] [address]- 0636 Oct, [facility] [id number], [place] [address]- 0110 Oct, [facility] [address] [facility] [id number] [place] [address]- 5093 Oct, [facility] [address] [facility] [id number] [place] [address]- 1373 Oct, [facility] [id number] [place] [address]- 6454 Sep, Dorsalgia, unspecified M54.9 [facility] [id number] [place] [address] 02348- 5450 Sep, [facility] [id number] [place] [address] 56101- 6428 Sep, [facility] [id number] [place] [address] 16929- 4923 Sep, Falling R29.6 ; Essential hypertension I10 ; Chronic obstructive pulmonary disease, unspecified COPD type J44.9 and BMI 40.0-44.9, adult Z68.41 [facility] [id number] [place] [address] 02959- 8770 Sep, [facility] [id number] [place] [address] 71519- 0943 Sep, [facility] [id number] [place] [address] 95379- 3117 Sep, [facility] [id number] [place] [address] 09125- 6463 Sep, Mild intermittent asthma without complication J45.20 [facility] [id number] [place] [address] 74143- 5755 Sep, [facility] [id number] [place] [address] 88157- 0731 Sep, [facility] [id number] [place] [address] 44851- 7479 Sep, [facility] [id number] [place] [address] 40203- 0677 Sep, [facility] [id number] [place] [address] 22154- 1922 Sep, [facility] [id number] [place] [address] 53693- 6847 Sep, [facility] [id number] [place] [address] 77400- 5022 Sep, Essential hypertension I10 [facility] [address], [place] [address]- 7366 15 Sep, 2017 [facility] [id number] [place] [address] 88158- 6354 15 Sep, 2017 [facility] [id number] [place] [address] 04723- 8434 15 Sep, 2017 [facility] [id number] [place] [address] 97936- 9903 14 Sep, 2017 [facility] [id number] [place] [address] 29868- 0979 14 Sep, 2017 [facility] [id number] [place] [address] 53069- 2119 14 Sep, 2017 [facility] [id number] [place] [address] 28326- 8534 Sep, [facility] [id number] [place] [address] 49155- 4467 Sep, [facility] [id number] [place] [address] 16792- 1170 13 Sep, 2017 [facility] [id number] [place] [address] 00435- 8481 Sep, [facility] [id number] [place] [address] 32688- 9572 Sep, Mild intermittent asthma without complication J45.20 [facility] [id number] [place] [address] 39866- 2809 August, Essential hypertension I10 [facility] [id number] [place] [address] 84405- 2363 August, BMI 40.0-44.9, adult Z68.41 ; Dorsalgia, unspecified M54.9 ; Allergic state, initial encounter T78.40XA ; Mild intermittent asthma without complication J45.20 and 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 [facility] [id number] [place] [address] 04121- 2363 August, [facility] [id number], [place] [address]- 9206 August, [facility] [id number] [place] [address] 85286- 0456 August, [facility] [address], [place] [address]- 8860 August, Reactive depression F32.9 [facility] [id number] [place] [address] 08008- 1025 August, [facility] [id number] [place] [address], [place] [address]- 1962 August, [facility] [id number] [place] [address] 65315- 3798 August, [facility] [id number] [place] [address] 91069- 9547 August, [facility] [id number] [place] [address]- 8612 August, [facility] [id number] [place] [address] 37625- 0787 August, [facility] [address], [place] [address]- 2191 August, [facility] [address], [place] [address]- 3810 August, Muscle spasms of both lower extremities M62.838 ; Essential hypertension I10 and Reactive depression F32.9 [facility] [address], [place] [address]- 5388 August, [facility] [address] [address]- 1277 Jul, [facility] [address], [place] [address]- 6794 Jul, [facility] [address], [place] [address]- 5856 Jul, [facility] [id number], [place] [address]- 7543 Jul, [facility] [id number], [place] [address]- 5265 Jul, [facility] [id number], [place] [address]- 4954 Jul, [facility] [id number], [place] [address]- 9496 Jul, [facility] [address], [place] [address]- 2969 Jul, [facility] [id number], [place] [address]- 7340 Jul, Essential hypertension I10 ; Other chronic pain G89.29 ; Dorsalgia, unspecified M54.9 ; Reactive depression F32.9 ; Mild intermittent asthma without complication J45.20 ; Allergic state, initial encounter T78.40XA and Muscle spasms of both lower extremities M62.838 IMMUNIZATIONS No Known Immunizations SOCIAL HISTORY Never Assessed REASON FOR VISIT Re:RE:Re:RE:[employer] Script and refill PLAN OF CARE VITAL SIGNS MEDICATIONS [...]
--- OUTSIDE RECORDS SUMMARY | 2018-04-06 08:01 | XMS REPORT ---
Author Author ROSALINA GRAHAM [facility] Address [address] [place] [address] Care Team Providers Care Senior Tableau Developer Name Role Phone ROSALINA GRAHAM Unavailable PROBLEMS Type Condition ICD9-CM Code HKS22-FX Code Onset Dates Condition Status SNOMED Code Problem Reactive depression F32.9 Active 60961949 Problem Generalized anxiety disorder F41.1 Active 68264555 Problem Severe episode of recurrent major depressive disorder, without psychotic features F33.2 Active 54770707 Problem Environmental allergies Z91.09 Active 296888346 Problem Moderate persistent asthma without complication J45.40 Active 297944185 Problem PTSD (post-traumatic stress disorder) F43.10 Active 52050622 Problem Falling R29.6 Active 574732366 Problem Cervical disc disease with myelopathy M50.00 Active 01966590 Problem Panic disorder F41.0 Active 117601987 Problem Essential hypertension I10 Active 19654449 Problem Dorsalgia, unspecified M54.9 Active 536718739 Problem Other chronic pain G89.29 Active 02515202 Problem Allergic state, initial encounter T78.40XA Active 015111809 Problem Muscle spasms of both lower extremities M62.838 Active 354510065 ALLERGIES No Information ENCOUNTERS Encounter Location Date Diagnosis [facility] [id number] [address] Mar, [facility] [address], [place] [address] 99[address] Feb, [facility] [id number] [place] [address] 29804- 8307 Feb, [facility] [id number], [place] [address] 8360 Jan, [facility] [id number] [place] [address] 67722- 5616 Jan, [facility] [address], [place] [address] 0896 Jan, [facility] [id number] [place] [address] 95299- 0843 Jan, [facility] [id number] [place] [address] 79179- 7436 Jan, Severe episode of recurrent major depressive disorder, without psychotic features F33.2 ; Panic disorder F41.0 ; PTSD (post-traumatic stress disorder) F43.10 and BMI 40.0-44.9, adult Z68.41 [facility] [id number] [place] [address] 74523- 0471 Jan, Severe episode of recurrent major depressive disorder, without psychotic features F33.2 and Generalized anxiety disorder F41.1 [facility] [id number] [place] [address] 59812- 4197 Jan, [facility] [id number] [place] [address] 65770- 4648 Jan, Cervical disc disease with myelopathy M50.00 [facility] [id number] [place] [address] 47018- 1080 Jan, [facility] [id number] [place] [address] 18912- 8556 Jan, [facility] [id number] [place] [address] 18434- 5921 Jan, [facility] [id number] [place] [address] 86547- 9356 Jan, [facility] [id number] [place] [address] 69145- 6347 Jan, [facility] [address], [place] [address] 2699 Jan, Environmental allergies Z91.09 and BMI 40.0-44.9, adult Z68.41 [facility] [address], [place] [address] 9264 Jan, [facility] [id number] [place] [address] 93610- 8748 Jan, [facility] [id number] [place] [address] 54696- 8034 Jan, Severe episode of recurrent major depressive disorder, without psychotic features F33.2 [facility] [id number] [place] [address] 84703- 9297 Dec, Severe episode of recurrent major depressive disorder, without psychotic features F33.2 [facility] [id number] [place] [address] 20197- 3086 Dec, Encounter for immunization Z23 [facility] [id number] [place] [address] 80364- 8663 Dec, [facility] [id number] [place] [address] 46001- 7648 24 Dec, 2017 Severe episode of recurrent major depressive disorder, without psychotic features F33.2 ; PTSD (post-traumatic stress disorder) F43.10 ; Panic disorder F41.0 and BMI 40.0-44.9, adult Z68.41 [facility] [id number] [place] [address] 75049- 3872 Dec, [facility] [id number] [place] [address] 12969- 6510 Dec, [facility] [id number] [place] [address] 36723- 0471 Dec, Essential hypertension I10 [facility] [id number] [place] [address] 21364- 3858 14 Dec, 2017 [facility] [id number] [place] [address] 62503- 7988 Dec, [facility] [id number] [place] [address] 18035- 7993 Dec, BMI 40.0-44.9, adult Z68.41 ; Severe episode of recurrent major depressive disorder, without psychotic features F33.2 ; PTSD (post- traumatic stress disorder) F43.10 and Panic disorder F41.0 [facility] [id number] [place] [address] 13614- 1083 Dec, [facility] [id number] [place] [address] 97389- 3154 Dec, [facility] [id number] [place] [address] 44588- 5239 Dec, Essential hypertension I10 [facility] [address] 77262- 8113 Dec, Severe episode of recurrent major depressive disorder, without psychotic features F33.2 [facility] [id number] [place] [address] 60753- 8417 Dec, Severe episode of recurrent major depressive disorder, without psychotic features F33.2 and Generalized anxiety disorder F41.1 [facility] [id number] [place] [address] 71437- 1538 Nov, Cervical disc disease with myelopathy M50.00 [facility] [id number] [place] [address] 27358- 5848 Nov, Cervical disc disease with myelopathy M50.00 ; Moderate persistent asthma without complication J45.40 and BMI 40.0-44.9, adult Z68.41 [facility] [id number] [place] [address] 83297- 5870 Nov, [facility] [id number] [place] [address] 14464- 5958 Nov, [facility] [id number] [place] [address] 32882- 7307 Nov, [facility] [id number] [place] [address] 29545- 6915 Nov, [facility] [id number] [address]- 4152 Nov, [facility] [id number] [place] [address] 62149- 4815 Nov, [facility] [id number] [place] [address] 78328- 6258 Nov, [facility] [id number] [place] [address] 76185- 4638 Nov, [facility] [id number] [place] [address] 21823- 5809 Nov, [facility] [id number] [place] [address] 41430- 1164 Nov, Severe episode of recurrent major depressive disorder, without psychotic features F33.2 ; PTSD (post-traumatic stress disorder) F43.10 ; Panic disorder F41.0 and BMI 40.0-44.9, adult Z68.41 [facility] [id number] [place] [address] 75446- 6445 Nov, [facility] [id number] [place] [address] 64985- 3394 Nov, Essential hypertension I10 [facility] [id number] [place] [address] 19053- 0704 Nov, Severe episode of recurrent major depressive disorder, without psychotic features F33.2 [facility] [address], [place] [address]- 1219 Nov, Acute pain of left knee M25.562 [facility] [address], [place] [address]- 8385 Nov, Severe episode of recurrent major depressive disorder, without psychotic features F33.2 ; PTSD (post-traumatic stress disorder) F43.10 ; Panic disorder F41.0 and BMI 40.0-44.9, adult Z68.41 [facility] [id number] [place] [address] 93474- 1692 Oct, [facility] [address] [facility] [id number] [place] [address]- 1294 Oct, [facility] [address] [facility] [id number] [place] [address], [place] [address]- 1464 Oct, [facility] [address] [facility] [id number] [place] [address]- 9807 Oct, [facility] [address] [facility] [id number] [place] [address], [place] [address]- 5669 Oct, Dorsalgia, unspecified M54.9 [facility] [address] [facility] [id number] [place] [address]- 5907 Oct, Severe episode of recurrent major depressive disorder, without psychotic features F33.2 and Generalized anxiety disorder F41.1 [facility] [address] [place] [address]- 8584 Oct, [facility] [id number] [place] [address] 64178- 1289 Oct, [facility] [id number] [place] [address]- 2368 Oct, [facility] [address], [place] [address]- 5576 Oct, [facility] [address], [place] [address]- 8533 Oct, [facility] [id number], [place] [address]- 5060 Oct, [facility] [address] [facility] [id number] [place] [address]- 4384 Oct, [facility] [address] [facility] [id number] [place] [address]- 3725 Oct, [facility] [id number] [place] [address]- 6480 Sep, Dorsalgia, unspecified M54.9 [facility] [id number] [place] [address] 92768- 6751 Sep, [facility] [id number] [place] [address] 93026- 8136 Sep, [facility] [id number] [place] [address] 17011- 0453 Sep, Falling R29.6 ; Essential hypertension I10 ; Chronic obstructive pulmonary disease, unspecified COPD type J44.9 and BMI 40.0-44.9, adult Z68.41 [facility] [id number] [place] [address] 79392- 1793 Sep, [facility] [id number] [place] [address] 14035- 8222 Sep, [facility] [id number] [place] [address] 48406- 8441 Sep, [facility] [id number] [place] [address] 90341- 2775 Sep, Mild intermittent asthma without complication J45.20 [facility] [id number] [place] [address] 43867- 8592 Sep, [facility] [id number] [place] [address] 07035- 3948 Sep, [facility] [id number] [place] [address] 17384- 1661 Sep, [facility] [id number] [place] [address] 40906- 6929 Sep, [facility] [id number] [place] [address] 93450- 9996 Sep, [facility] [id number] [place] [address] 32139- 2547 Sep, [facility] [id number] [place] [address] 84238- 1196 Sep, Essential hypertension I10 [facility] [address], [place] [address]- 3908 15 Sep, 2017 [facility] [id number] [place] [address] 93217- 8976 15 Sep, 2017 [facility] [id number] [place] [address] 58982- 3073 15 Sep, 2017 [facility] [id number] [place] [address] 05605- 4810 14 Sep, 2017 [facility] [id number] [place] [address] 98842- 3097 14 Sep, 2017 [facility] [id number] [place] [address] 35541- 9298 14 Sep, 2017 [facility] [id number] [place] [address] 55072- 0986 Sep, [facility] [id number] [place] [address] 31414- 6030 Sep, [facility] [id number] [place] [address] 68393- 3834 13 Sep, 2017 [facility] [id number] [place] [address] 03682- 2774 Sep, [facility] [id number] [place] [address] 51337- 6402 Sep, Mild intermittent asthma without complication J45.20 [facility] [id number] [place] [address] 00535- 7066 August, Essential hypertension I10 [facility] [id number] [place] [address] 50098- 6431 August, BMI 40.0-44.9, adult Z68.41 ; Dorsalgia, unspecified M54.9 ; Allergic state, initial encounter T78.40XA ; Mild intermittent asthma without complication J45.20 and 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 [facility] [id number] [place] [address] 95303- 2028 August, [facility] [id number], [place] [address]- 7290 August, [facility] [id number] [place] [address] 59866- 1805 August, [facility] [id number] [place] [address]- 3731 August, Reactive depression F32.9 [facility] [id number] [place] [address] 12645- 2526 August, [facility] [id number] [place] [address], [place] [address]- 2612 August, [facility] [id number] [place] [address] 33943- 1865 August, [facility] [id number] [place] [address] 47486- 5867 August, [facility] [id number] [place] [address]- 0758 August, [facility] [id number] [place] [address] 31575- 3941 August, [facility] [address], [place] [address]- 0428 August, [facility] [address], [place] [address]- 7357 August, Muscle spasms of both lower extremities M62.838 ; Essential hypertension I10 and Reactive depression F32.9 [facility] [address], [place] [address]- 2292 August, [facility] [id number] [place] [address]- 3958 Jul, [facility] [address], [place] [address]- 4142 Jul, [facility] [id number] [place] [address]- 5908 Jul, [facility] [id number], [place] [address]- 7710 Jul, [facility] [id number], [place] [address]- 5946 Jul, [facility] [id number], [place] [address]- 0251 Jul, [facility] [address] [address]- 4801 Jul, [facility] [address] [address]- 1702 Jul, [facility] [address] [address]- 2353 Jul, Essential hypertension I10 ; Other chronic pain G89.29 ; Dorsalgia, unspecified M54.9 ; Reactive depression F32.9 ; Mild intermittent asthma without complication J45.20 ; Allergic state, initial encounter T78.40XA and Muscle spasms of both lower extremities M62.838 IMMUNIZATIONS No Known Immunizations SOCIAL HISTORY Never Assessed REASON FOR VISIT Questionar PLAN OF CARE VITAL SIGNS MEDICATIONS Unknown [...]
--- OUTSIDE RECORDS SUMMARY | 2018-04-06 08:01 | XMS REPORT ---
Author Author ROSALINA GRAHAM [facility] Address [address] [place] [address] Care Team Providers Care Driller Helper Name Role Phone ROSALINA GRAHAM Unavailable PROBLEMS Type Condition ICD9-CM Code HCI44-KK Code Onset Dates Condition Status SNOMED Code Problem Reactive depression F32.9 Active 96888599 Problem Generalized anxiety disorder F41.1 Active 71968700 Problem Severe episode of recurrent major depressive disorder, without psychotic features F33.2 Active 52035420 Problem Environmental allergies Z91.09 Active 039829606 Problem Moderate persistent asthma without complication J45.40 Active 754315077 Problem PTSD (post-traumatic stress disorder) F43.10 Active 19852518 Problem Falling R29.6 Active 502913461 Problem Cervical disc disease with myelopathy M50.00 Active 02565100 Problem Panic disorder F41.0 Active 139277278 Problem Essential hypertension I10 Active 78757008 Problem Dorsalgia, unspecified M54.9 Active 044268071 Problem Other chronic pain G89.29 Active 76036486 Problem Allergic state, initial encounter T78.40XA Active 370005828 Problem Muscle spasms of both lower extremities M62.838 Active 862612432 ALLERGIES No Information ENCOUNTERS Encounter Location Date Diagnosis [facility] [id number], [place] [address] Mar, [facility] [address] [address] Feb, [facility] [id number] [place] [address] 80229- 6980 Feb, [facility] [address] [id number] [address] Jan, [facility] [id number] [place] [address] 99544- 1681 Jan, [facility] [id number] [place] [address] 73810- 2401 Jan, [facility] [id number] [place] [address] 71151- 4896 Jan, Severe episode of recurrent major depressive disorder, without psychotic features F33.2 ; Panic disorder F41.0 ; PTSD (post-traumatic stress disorder) F43.10 and BMI 40.0-44.9, adult Z68.41 [facility] [id number], [place] [address] Jan, Severe episode of recurrent major depressive disorder, without psychotic features F33.2 and Generalized anxiety disorder F41.1 [facility] [id number] [place] [address] 98331- 4073 Jan, [facility] [id number] [place] [address] 20141- 2315 Jan, [facility] [id number] [place] [address] 56721- 2780 Jan, [facility] [id number] [place] [address] 68930- 8705 Jan, [facility] [id number], [place] [address] 8817 Jan, [facility] [id number] [place] [address] 54019- 4221 Jan, [facility] [id number], [place] [address] 8725 Jan, [facility] [id number] [place] [address] 21955- 7322 Jan, Environmental allergies Z91.09 and BMI 40.0-44.[address], [address] [facility] [id number] [place] [address] 07143- 7205 Jan, [facility] [id number] [place] [address] 53242- 2431 Jan, [facility] [id number] [place] [address] 86946- 2072 Jan, Severe episode of recurrent major depressive disorder, without psychotic features F33.2 [facility] [id number] [place] [address] 98001- 8022 Dec, Severe episode of recurrent major depressive disorder, without psychotic features F33.2 [facility] [id number] [place] [address] 56759- 4633 Dec, Encounter for immunization Z23 [facility] [id number] [place] [address] 31156- 6742 Dec, [facility] [id number] [place] [address] 79299- 6749 Dec, Severe episode of recurrent major depressive disorder, without psychotic features F33.2 ; PTSD (post-traumatic stress disorder) F43.10 ; Panic disorder F41.0 and BMI 40.0-44.9, adult Z68.41 [facility] [id number] [place] [address] 10357- 5974 Dec, [facility] [id number] [place] [address] 94789- 4674 Dec, [facility] [id number] [place] [address] 78237- 6037 Dec, Essential hypertension I10 [facility] [id number] [place] [address] 50534- 6846 14 Dec, 2017 [facility] [id number] [place] [address] 91741- 3727 Dec, [facility] [id number] [place] [address] 40626- 8372 Dec, BMI 40.0-44.9, adult Z68.41 ; Severe episode of recurrent major depressive disorder, without psychotic features F33.2 ; PTSD (post- traumatic stress disorder) F43.10 and Panic disorder F41.0 [facility] [id number] [place] [address] 86655- 7542 Dec, [facility] [id number] [place] [address] 96470- 2016 Dec, [facility] [id number] [place] [address] 33833- 9208 Dec, Essential hypertension I10 [facility] [address] 7[address]36- 5432 Dec, Severe episode of recurrent major depressive disorder, without psychotic features F33.2 [facility] [address] 92556- 4563 Dec, Severe episode of recurrent major depressive disorder, without psychotic features F33.2 and Generalized anxiety disorder F41.1 [place] [address] 30538- 0665 Nov, Cervical disc disease with myelopathy M50.00 [facility] [id number] [place] [address] 87892- 3842 Nov, Cervical disc disease with myelopathy M50.00 ; Moderate persistent asthma without complication J45.40 and BMI 40.0-44.9, adult Z68.41 [facility] [id number] [place] [address] 50846- 2133 Nov, [facility] [id number] [place] [address] 49883- 6396 Nov, [facility] [id number] [place] [address] 45634- 7433 Nov, [facility] [address] 97193- 0456 Nov, [facility] [id number] [place] [address] 86146- 9978 Nov, [facility] [address] 73855- 1418 Nov, [facility] [address], [place] [address] 7484 Nov, [facility] [address], [place] [address]- 5611 Nov, [facility] [address], [place] [address]- 4051 Nov, [facility] [id number] [place] [address] 14353- 0444 Nov, Severe episode of recurrent major depressive disorder, without psychotic features F33.2 ; PTSD (post-traumatic stress disorder) F43.10 ; Panic disorder F41.0 and BMI 40.0-44.9, adult Z68.41 [facility] [address], [place] [address] 4835 Nov, [facility] [id number] [place] [address] 25627- 1641 Nov, Essential hypertension I10 [facility] [id number] [place] [address] 90474- 2394 Nov, Severe episode of recurrent major depressive disorder, without psychotic features F33.2 [facility] [address], [place] [address]- 6260 Nov, Acute pain of left knee M25.562 [facility] [id number], [place] [address]- 5162 Nov, Severe episode of recurrent major depressive disorder, without psychotic features F33.2 ; PTSD (post-traumatic stress disorder) F43.10 ; Panic disorder F41.0 and BMI 40.0-44.9, adult Z68.41 [facility] [address], [place] [address]- 9734 Oct, [facility] [address], [place] [address]- 6523 Oct, [facility] [id number] [address]- 4716 Oct, [facility] [address] [facility] [id number] [place] [address]- 7500 Oct, [facility] [id number] [address]- 1522 Oct, Dorsalgia, unspecified M54.9 [facility] [id number] [place] [address], [place] [address]- 2014 Oct, Severe episode of recurrent major depressive disorder, without psychotic features F33.2 and Generalized anxiety disorder F41.1 [facility] [id number] [place] [address], [place] [address]- 1691 Oct, [facility] [address], [place] [address]- 5953 Oct, [facility] [id number] [place] [address], [place] [address]- 6031 Oct, [facility] [id number], [place] [address]- 6412 Oct, [facility] [id number] [place] [address], [place] [address]- 1302 Oct, [facility] [id number], [place] [address]- 3614 Oct, [facility] [address], [place] [address]- 1060 Oct, [facility] [id number], [place] [address]- 1581 Oct, [facility] [id number], [place] [address]- 1947 Sep, Dorsalgia, unspecified M54.9 [facility] [id number], [place] [address]- 3112 Sep, [facility] [id number] [place] [address] 39566- 5145 Sep, [facility] [id number] [place] [address] 63062- 8701 Sep, Falling R29.6 ; Essential hypertension I10 ; Chronic obstructive pulmonary disease, unspecified COPD type J44.9 and BMI 40.0-44.9, adult Z68.41 [facility] [id number] [place] [address] 42403- 4302 Sep, [facility] [id number] [place] [address] 40718- 5893 Sep, [facility] [id number] [place] [address] 51552- 0446 Sep, [facility] [id number] [place] [address] 89867- 6841 Sep, Mild intermittent asthma without complication J45.20 [facility] [id number] [place] [address] 88916- 6882 Sep, [facility] [id number] [place] [address] 97540- 0490 Sep, [facility] [id number] [place] [address] 69417- 6741 Sep, [facility] [id number] [place] [address] 48861- 5565 Sep, [facility] [id number] [place] [address] 20554- 3469 Sep, [facility] [id number] [place] [address] 94543- 3324 Sep, [facility] [id number] [place] [address] 36340- 8709 Sep, Essential hypertension I10 [facility] [id number] [place] [address] 30119- 8668 Sep, [facility] [id number] [place] [address] 08887- 1354 15 Sep, 2017 [facility] [address], [place] [address]- 6471 15 Sep, 2017 [facility] [address] [place] [address] 00368- 5203 14 Sep, 2017 [facility] [address] [place] [address] 53119- 4060 14 Sep, 2017 [facility] [id number] [place] [address] 40347- 8145 14 Sep, 2017 [facility] [id number] [place] [address] 99556- 6328 Sep, [facility] [id number] [place] [address] 51542- 5314 Sep, [facility] [id number] [place] [address] 02470- 4512 Sep, [facility] [id number] [place] [address] 12371- 6688 Sep, [facility] [id number] [place] [address] 40958- 0348 Sep, Mild intermittent asthma without complication J45.20 [facility] [address], [place] [address]- 9981 August, Essential hypertension I10 [facility] [id number] [place] [address] 79317- 7389 August, BMI 40.0-44.9, adult Z68.41 ; Dorsalgia, unspecified M54.9 ; Allergic state, initial encounter T78.40XA ; Mild intermittent asthma without complication J45.20 and 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 [facility] [address], [place] [address]- 4630 August, [facility] [id number] [place] [address] 79553- 78[address] August, [facility] [address] [facility] [id number] [place] [address]- 4062 August, [facility] [id number] [address]- 2744 August, Reactive depression F32.9 [facility] [id number] [address]- 3547 August, [facility] [id number] [address]- [address], [facility] [id number] [address]- [address] August, [facility] [id number] [address]- 7330 August, [facility] [address] [address]- [address]957 August, [facility] [address] [address]- [address], [facility] [address] [address]- 4103 August, [facility] [id number], [place] [address]- 2889 August, Muscle spasms of both lower extremities M62.838 ; Essential hypertension I10 and Reactive depression F32.9 [facility] [address], [place] [address] 9967 August, [facility] [id number], [place] [address]- 7840 Jul, [facility] [id number] [address]- 87[address] Jul, [facility] [id number], [place] [address]- [address] Jul, [facility] [id number], [place] [address]- 0729 Jul, [facility] [address] [facility] [id number], [place] [address]- [address] Jul, [facility] [address] [facility] [id number], [place] [address]- [address] Jul, [facility] [address] [facility] [id number], [place] [address]- [address] Jul, [facility] [id number], [place] [address]- 5617 Jul, [facility] [address] [facility] [id number], [place] [address]- 0855 Jul, Essential hypertension I10 ; Other chronic [...]
--- OUTSIDE RECORDS SUMMARY | 2018-04-06 08:02 | XMS REPORT ---
Author Author LUCI RANGEL Organization [facility] Address [address] [place] [address] Care Team Providers Care Expert Witness Name Role Phone LUCI RANGEL Unavailable PROBLEMS Type Condition ICD9-CM Code [id number] Code Onset Dates Condition Status SNOMED Code Problem Reactive depression F32.9 Active 11949325 Problem Generalized anxiety disorder F41.1 Active 52798441 Problem Severe episode of recurrent major depressive disorder, without psychotic features F33.2 Active 30003883 Problem Environmental allergies Z91.09 Active 101772717 Problem Moderate persistent asthma without complication J45.40 Active 933011503 Problem PTSD (post-traumatic stress disorder) F43.10 Active 15698399 Problem Falling R29.6 Active 752877292 Problem Cervical disc disease with myelopathy M50.00 Active 99761161 Problem Panic disorder F41.0 Active 370234692 Problem Essential hypertension I10 Active 43207593 Problem Dorsalgia, unspecified M54.9 Active 948412733 Problem Other chronic pain G89.29 Active 07007696 Problem Allergic state, initial encounter T78.40XA Active 863626585 Problem Muscle spasms of both lower extremities M62.838 Active 092617584 ALLERGIES No Information ENCOUNTERS Encounter Location Date Diagnosis [facility] [id number] [address] Jan, [facility] [id number] [address] Jan, [facility] [id number] [place] [address] 78363- 4180 Jan, [facility] [id number], [place] [address] Jan, [facility] [id number] [place] [address] 40369- 8800 Jan, [facility] [address], [place] [address] Jan, [facility] [id number] [place] [address] 13821- 6782 Jan, [facility] [id number] [place] [address] 80925- 3528 Jan, Environmental allergies Z91.09 and BMI 40.0-44.9, adult Z68.41 [facility] [id number] [place] [address] 79018- 1795 Jan, [facility] [id number] [place] [address] 26570- 0960 Jan, [facility] [id number] [place] [address] 79052- 2329 Jan, Severe episode of recurrent major depressive disorder, without psychotic features F33.2 [facility] [id number] [place] [address] 26704- 1318 Dec, Severe episode of recurrent major depressive disorder, without psychotic features F33.2 [facility] [id number] [place] [address] 07536- 0281 Dec, Encounter for immunization Z23 [facility] [id number] [place] [address] 51329- 1674 Dec, [facility] [id number] [place] [address] 28256- 5132 Dec, Severe episode of recurrent major depressive disorder, without psychotic features F33.2 ; PTSD (post-traumatic stress disorder) F43.10 ; Panic disorder F41.0 and BMI 40.0-44.9, adult Z68.41 [facility] [id number] [place] [address] 56420- 4342 Dec, [facility] [id number] [place] [address] 55305- 8063 Dec, [address] [address] 09[address] Dec, Essential hypertension I10 [facility] [id number] [place] [address] 49071- 5954 Dec, [facility] [id number] [place] [address] 19551- 3467 Dec, [id number] [place] [address] 45892- 2941 Dec, BMI 40.0-44.9, adult Z68.41 ; Severe episode of recurrent major depressive disorder, without psychotic features F33.2 ; PTSD (post- traumatic stress disorder) F43.10 and Panic disorder F41.0 [id number] [place] [address] 60078- 4444 Dec, [place] [id number] [place] [address] 74277- 2825 Dec, [facility] [id number] [place] [address] 32704- 6730 Dec, Essential hypertension I10 [place] [id number] [place] [address] 99437- 8401 Dec, Severe episode of recurrent major depressive disorder, without psychotic features F33.2 [address] [id number] [place] [address] 74291- 6536 Dec, Severe episode of recurrent major depressive disorder, without psychotic features F33.2 and Generalized anxiety disorder F41.1 [place] [id number] [place] [address] 60116- 2224 Nov, Cervical disc disease with myelopathy M50.00 [address] [id number] [place] [address] 90852- 6995 Nov, Cervical disc disease with myelopathy M50.00 ; Moderate persistent asthma without complication J45.40 and BMI 40.0-44.9, adult Z68.41 [place] [address], [place] [address] 6[address] Nov, [facility] [id number] [place] [address] 84231- 1326 Nov, [facility] [address], [place] [address] 6895 Nov, [facility] [id number] [place] [address] 77767- 2741 Nov, [facility] [id number] [place] [address] 10904- 2088 Nov, [facility] [id number] [place] [address] 14412- 9775 Nov, [facility] [id number] [place] [address] 64158- 3144 Nov, [facility] [id number] [place] [address] 21962- 0629 Nov, [facility] [id number] [place] [address] 79198- 7755 Nov, [facility] [id number] [place] [address] 13708- 4811 Nov, Severe episode of recurrent major depressive disorder, without psychotic features F33.2 ; PTSD (post-traumatic stress disorder) F43.10 ; Panic disorder F41.0 and BMI 40.0-44.9, adult Z68.41 [facility] [address], [place] [address] 9046 Nov, [facility] [id number] [place] [address] 69181- 2701 Nov, Essential hypertension I10 [facility] [address], [place] [address] 3702 Nov, Severe episode of recurrent major depressive disorder, without psychotic features F33.2 [facility] [id number] [place] [address] 79061- 4685 Nov, Acute pain of left knee M25.562 [facility] [id number] [place] [address] 90970- 5710 Nov, Severe episode of recurrent major depressive disorder, without psychotic features F33.2 ; PTSD (post-traumatic stress disorder) F43.10 ; Panic disorder F41.0 and BMI 40.0-44.9, adult Z68.41 [facility] [id number] [place] [address] 67176- 0803 Oct, [facility] [id number] [place] [address] 36903- 6967 Oct, [facility] [id number] [place] [address] 58455- 3000 Oct, [facility] [id number] [place] [address] 45612- 3618 Oct, [facility] [id number] [place] [address] 00003- 4639 Oct, Dorsalgia, unspecified M54.9 [facility] [id number] [place] [address] 29934- 0701 Oct, Severe episode of recurrent major depressive disorder, without psychotic features F33.2 and Generalized anxiety disorder F41.1 [facility] [id number] [place] [address] 78097- 8941 Oct, [facility] [id number] [place] [address] 42643- 7935 Oct, [facility] [id number] [place] [address] 93082- 3158 Oct, [facility] [id number] [place] [address] 79377- 6369 Oct, [facility] [id number] [place] [address] 06254- 3439 Oct, [facility] [id number] [address]- 1640 Oct, [facility] [address], [place] [address]- 9766 Oct, [facility] [id number] [place] [address] 85303- 5586 Oct, [facility] [id number] [place] [address] 50254- 9232 Sep, Dorsalgia, unspecified M54.9 [facility] [id number] [place] [address] 39469- 3803 Sep, [facility] [id number] [place] [address] 54438- 6920 Sep, [facility] [id number] [place] [address] 54643- 7207 Sep, Falling R29.6 ; Essential hypertension I10 ; Chronic obstructive pulmonary disease, unspecified COPD type J44.9 and BMI 40.0-44.9, adult Z68.41 [facility] [id number] [address]- 8764 Sep, [facility] [id number] [place] [address] 70794- 8570 Sep, [facility] [id number] [place] [address] 70998- 6050 Sep, [facility] [id number] [place] [address] 66188- 9877 Sep, Mild intermittent asthma without complication J45.20 [facility] [id number] [place] [address] 89338- 0639 Sep, [facility] [id number] [place] [address] 12341- 1401 Sep, [facility] [address], [place] [address]- 6692 Sep, [facility] [id number] [address]- 4690 18 Sep, 2017 [facility] [address], [place] [address]- 0478 18 Sep, 2017 [facility] [address], [place] [address]- 3785 15 Sep, 2017 [facility] [id number] [place] [address] 05710- 1199 15 Sep, 2017 Essential hypertension I10 [facility] [address] [facility] [id number] [place] [address]- 9361 15 Sep, 2017 [facility] [address] [place] [address], [place] [address]- 5119 15 Sep, 2017 [facility] [address], [place] [address]- 3301 15 Sep, 2017 [facility] [id number] [place] [address] 29418- 4063 14 Sep, 2017 [facility] [address], [place] [address]- 8318 14 Sep, 2017 [facility] [address], [place] [address]- 5836 14 Sep, 2017 [facility] [address], [place] [address]- 4755 13 Sep, 2017 [facility] [address], [place] [address]- 6871 13 Sep, 2017 [facility] [id number], [place] [address]- 9230 13 Sep, 2017 [facility] [address], [place] [address]- 4712 12 Sep, 2017 [facility] [address], [place] [address]- 6236 05 Sep, 2017 Mild intermittent asthma without complication J45.20 [facility] [id number] [place] [address] 51912- 2108 August, Essential hypertension I10 [facility] [id number] [address]- 6869 August, BMI 40.0-44.9, adult Z68.41 ; Dorsalgia, unspecified M54.9 ; Allergic state, initial encounter T78.40XA ; Mild intermittent asthma without complication J45.20 and 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 [facility] [id number] [place] [address] 38744- 9203 August, [facility] [id number] [place] [address] 46777- 8085 August, [facility] [id number] [place] [address] 89495- 9036 August, [facility] [id number] [place] [address] 63924- 2167 August, Reactive depression F32.9 [facility] [id number] [address]- 6302 August, [facility] [id number] [place] [address] 02331- 4309 August, [facility] [id number] [address]- 7820 August, [facility] [address], [place] [address]- 4859 August, [facility] [address], [place] [address]- 0747 August, [facility] [id number] [address]- 8842 August, [facility] [id number] [address]- 2373 August, [facility] [id number], [place] [address]- 6025 August, Muscle spasms of both lower extremities M62.838 ; Essential hypertension I10 and Reactive depression F32.9 [facility] [address], [place] [address]- 6375 August, [facility] [address] [place] [address]- 4564 Jul, [facility] [id number] [place] [address] 76679- 4953 Jul, [facility] [id number] [place] [address] 96611- 5827 Jul, [facility] [id number] [place] [address] 17739- 3189 Jul, [facility] [id number] [place] [address] 62933- 3272 Jul, [facility] [id number] [place] [address] 69746- 9712 Jul, [facility] [id number] [place] [address] 93379- 7582 Jul, [facility] [id number] [place] [address] 76610- 8246 Jul, [facility] [address], [place] [address]- 3229 Jul, Essential hypertension I10 ; Other chronic pain G89.29 ; Dorsalgia, unspecified M54.9 ; Reactive depression F32.9 ; Mild intermittent asthma without complication J45.20 ; Allergic state, initial encounter T78.40XA and Muscle spasms of both lower extremities M62.838 IMMUNIZATIONS No Known Immunizations SOCIAL HISTORY Never Assessed REASON FOR VISIT judah STALLINGS/BRYANT PLAN OF CARE Activity Details Follow Up 2 Weeks-per his request Reason: VITAL SIGNS Height 66 in 2018-01-10 Weight 267.6 lbs 2018-01-10 Heart Rate 70 bpm 2018-01-10 Respiratory Rate 20 2018-01-10 BMI 43.19 kg/m2 2018-01-10 Blood pressure systolic 128 mmHg 2018-01-10 Blood pressure diastolic 92 mmHg 2018-01-10 MEDICATIONS Medication Instructions Dosage Frequency Start Date End Date Duration Status Allergy 12 MG Orally every 12 hrs 1 tablet as needed 12h Active Gabapentin 300 MG Orally twice a day 1 capsule 12h Active ProAir HFA 108 (90 Base) MCG/ACT Inhalation every 6 hrs 2 puffs as needed 6h Sep, Active Zoloft 100 mg Orally Once a day 2 tablet 24h Active Lovastatin 40 mg Orally Once a day 1 tablet with the evening meal 24h Jul, Active Xanax XR 0.5 MG Orally Once a day 1 tablet 24h Active Breo Ellipta 100-25 MCG/INH Inhalation Once a day 1 puff 24h Sep, Active Losartan Potassium 100 mg Orally Once a day 1 tablet 24h 30 days Active Atenolol 50 mg Orally Once a day 1 tablet 24h 90 days Active BusPIRone HCl 5 MG Orally Three times a day 1 tablet 8h Dec, Active Singulair 10 mg Orally Once a day 1 tablet 24h Active Soma 350 MG Orally 3 times [...]
--- OUTSIDE RECORDS SUMMARY | 2018-04-06 08:02 | XMS REPORT ---
Author Author RANGEL VERMA [facility] Address [address] [place] [address] Care Team Providers Care Vortex Operator Name Role Phone RANGEL VERMA Unavailable PROBLEMS ALLERGIES No Information ENCOUNTERS IMMUNIZATIONS No Known Immunizations SOCIAL HISTORY No smoking Hx information available REASON FOR VISIT PLAN OF CARE VITAL SIGNS MEDICATIONS Unknown Medications RESULTS No Results PROCEDURES No Known procedures INSTRUCTIONS MEDICATIONS ADMINISTERED No Known Medications MEDICAL (GENERAL) HISTORY
--- OUTSIDE RECORDS SUMMARY | 2018-04-06 08:02 | XMS REPORT ---
Author Author RANGEL VERMA [facility] Address [address] [place] [address] Care Team Providers Care Toe Closing Machine Tender Name Role Phone RANGEL VERMA Unavailable PROBLEMS ALLERGIES No Information ENCOUNTERS IMMUNIZATIONS No Known Immunizations SOCIAL HISTORY No smoking Hx information available REASON FOR VISIT PLAN OF CARE VITAL SIGNS MEDICATIONS RESULTS No Results PROCEDURES No Known procedures INSTRUCTIONS MEDICATIONS ADMINISTERED No Known Medications MEDICAL (GENERAL) HISTORY
--- OUTSIDE RECORDS SUMMARY | 2018-04-06 08:02 | XMS REPORT ---
Author Author ROSALINA GRAHAM [facility] Address [address] [place] [address] Care Team Providers Care Medical Reimbursement Specialist Name Role Phone ROSALINA GRAHAM Unavailable PROBLEMS Type Condition ICD9-CM Code BJM44-IT Code Onset Dates Condition Status SNOMED Code Problem Reactive depression F32.9 Active 89108779 Problem Generalized anxiety disorder F41.1 Active 95782675 Problem Severe episode of recurrent major depressive disorder, without psychotic features F33.2 Active 65275895 Problem Environmental allergies Z91.09 Active 356296965 Problem Moderate persistent asthma without complication J45.40 Active 637008213 Problem PTSD (post-traumatic stress disorder) F43.10 Active 35400518 Problem Falling R29.6 Active 780304635 Problem Cervical disc disease with myelopathy M50.00 Active 45081795 Problem Panic disorder F41.0 Active 342491900 Problem Essential hypertension I10 Active 56089261 Problem Dorsalgia, unspecified M54.9 Active 935393641 Problem Other chronic pain G89.29 Active 66668238 Problem Allergic state, initial encounter T78.40XA Active 839965249 Problem Muscle spasms of both lower extremities M62.838 Active 805550968 ALLERGIES No Information ENCOUNTERS Encounter Location Date Diagnosis [facility] [id number], [place] [address] Jan, [facility] [address] [address] Jan, [facility] [id number] [place] [address] 74717- 0320 Jan, [facility] [id number], [place] [address] Jan, [facility] [id number] [place] [address] 67462- 9351 Jan, [facility] [id number] [place] [address] 09358- 5956 Jan, [facility] [id number] [place] [address] 53367- 1758 Jan, [facility] [id number] [place] [address] 92128- 9806 Jan, Environmental allergies Z91.09 and BMI 40.0-44.9, adult Z68.41 [facility] [id number] [place] [address] 60533- 7237 Jan, [facility] [id number] [place] [address] 51963- 8348 Jan, [facility] [id number] [place] [address] 68664- 7600 Jan, Severe episode of recurrent major depressive disorder, without psychotic features F33.2 [facility] [id number] [place] [address] 36383- 4947 Dec, Severe episode of recurrent major depressive disorder, without psychotic features F33.2 [facility] [id number] [place] [address] 69031- 0312 Dec, Encounter for immunization Z23 [facility] [id number] [place] [address] 30995- 6869 Dec, [facility] [id number] [place] [address] 56948- 4264 Dec, Severe episode of recurrent major depressive disorder, without psychotic features F33.2 ; PTSD (post-traumatic stress disorder) F43.10 ; Panic disorder F41.0 and BMI 40.0-44.9, adult Z68.41 [facility] [id number] [place] [address] 46657- 3475 Dec, [facility] [id number] [place] [address] 42799- 8847 Dec, [facility] [address], [place] [address] 5371 19 Dec, 2017 Essential hypertension I10 [facility] [id number] [place] [address] 22045- 5134 14 Dec, 2017 [facility] [id number] [place] [address] 02346- 0579 06 Dec, 2017 [facility] [id number] [place] [address] 88529- 7535 Dec, BMI 40.0-44.9, adult Z68.41 ; Severe episode of recurrent major depressive disorder, without psychotic features F33.2 ; PTSD (post- traumatic stress disorder) F43.10 and Panic disorder F41.0 [facility] [id number] [place] [address] 72336- 5776 Dec, 2017 [facility] [id number] [place] [address] 64176- 9041 Dec, 2017 [facility] [id number] [place] [address] 86690- 7346 Dec, Essential hypertension I10 [facility] [id number] [place] [address] 23723- 3633 Dec, Severe episode of recurrent major depressive disorder, without psychotic features F33.2 [facility] [id number] [place] [address] 06574- 8394 Dec, Severe episode of recurrent major depressive disorder, without psychotic features F33.2 and Generalized anxiety disorder F41.1 [facility] [id number] [place] [address] 95249- 1711 Nov, Cervical disc disease with myelopathy M50.00 [facility] [id number] [place] [address] 54218- 2321 Nov, Cervical disc disease with myelopathy M50.00 ; Moderate persistent asthma without complication J45.40 and BMI 40.0-44.9, adult Z68.41 [facility] [id number] [address] 9567 Nov, [facility] [id number] [place] [address] 98586- 5104 Nov, [facility] [address], [place] [address] 5291 Nov, [facility] [id number] [place] [address] 25948- 1846 Nov, [facility] [id number] [place] [address] 62110- 9775 Nov, [facility] [id number] [place] [address] 46406- 8266 Nov, [facility] [id number] [place] [address] 64046- 0389 Nov, [facility] [id number] [place] [address] 84641- 2299 Nov, [facility] [id number] [place] [address] 43832- 9620 Nov, [facility] [id number] [place] [address] 28427- 5124 Nov, Severe episode of recurrent major depressive disorder, without psychotic features F33.2 ; PTSD (post-traumatic stress disorder) F43.10 ; Panic disorder F41.0 and BMI 40.0-44.9, adult Z68.41 [facility] [address], [place] [address] 29[address] Nov, [facility] [address], [place] [address]- 4479 Nov, Essential hypertension I10 [facility] [address], [place] [address]- 4284 Nov, Severe episode of recurrent major depressive disorder, without psychotic features F33.2 [facility] [id number] [place] [address] 84817- 2572 Nov, Acute pain of left knee M25.562 [facility] [id number] [place] [address] 96862- 0109 Nov, Severe episode of recurrent major depressive disorder, without psychotic features F33.2 ; PTSD (post-traumatic stress disorder) F43.10 ; Panic disorder F41.0 and BMI 40.0-44.9, adult Z68.41 [facility] [id number] [place] [address] 18461- 4092 Oct, [facility] [id number] [place] [address] 13469- 3344 Oct, [facility] [id number] [place] [address] 84661- 8954 Oct, [facility] [id number] [place] [address] 25183- 6578 Oct, [facility] [id number] [place] [address] 62943- 5100 Oct, Dorsalgia, unspecified M54.9 [facility] [id number] [place] [address] 28074- 7629 Oct, Severe episode of recurrent major depressive disorder, without psychotic features F33.2 and Generalized anxiety disorder F41.1 [facility] [id number], [place] [address]- 1521 Oct, [facility] [id number] [place] [address] 48893- 6817 Oct, [facility] [id number] [place] [address] 31593- 5699 Oct, [facility] [id number] [place] [address] 16290- 9117 Oct, [facility] [id number] [place] [address] 08728- 8659 Oct, [facility] [id number] [place] [address] 51504- 0237 Oct, [facility] [id number] [place] [address] 65413- 5543 Oct, [facility] [id number] [place] [address] 08464- 3858 Oct, [facility] [id number] [place] [address] 19965- 4777 Sep, Dorsalgia, unspecified M54.9 [facility] [id number] [place] [address] 92271- 0999 Sep, [facility] [id number] [place] [address] 42952- 3985 Sep, [facility] [id number] [place] [address] 12139- 7003 Sep, Falling R29.6 ; Essential hypertension I10 ; Chronic obstructive pulmonary disease, unspecified COPD type J44.9 and BMI 40.0-44.9, adult Z68.41 [facility] [id number], [place] [address]- 4544 Sep, [facility] [id number] [place] [address] 20848- 3885 Sep, [facility] [id number] [place] [address] 77193- 5231 Sep, [facility] [id number] [place] [address] 77388- 8863 Sep, Mild intermittent asthma without complication J45.20 [facility] [id number] [place] [address] 92186- 6449 Sep, [facility] [id number] [place] [address] 44741- 0170 Sep, [facility] [id number], [place] [address]- 3788 Sep, [facility] [address] [address]- 7359 18 Sep, 2017 [facility] [address], [place] [address]- 8625 18 Sep, 2017 [facility] [id number], [place] [address]- 4441 15 Sep, 2017 [facility] [id number] [place] [address] 60550- 6537 15 Sep, 2017 Essential hypertension I10 [facility] [address] [facility] [id number] [place] [address]- 5870 15 Sep, 2017 [facility] [id number] [place] [address], [place] [address]- 7342 15 Sep, 2017 [facility] [address], [place] [address]- 4335 15 Sep, 2017 [facility] [id number] [place] [address] 32723- 9625 14 Sep, 2017 [facility] [id number], [place] [address]- 5363 14 Sep, 2017 [facility] [id number] [place] [address] 54107- 4090 14 Sep, 2017 [facility] [address], [place] [address]- 7532 13 Sep, 2017 [facility] [address], [place] [address]- 3765 13 Sep, 2017 [facility] [id number], [place] [address]- 4181 13 Sep, 2017 [facility] [id number] [place] [address] 37828- 1326 12 Sep, 2017 [facility] [address], [place] [address]- 0307 05 Sep, 2017 Mild intermittent asthma without complication J45.20 [facility] [address], [place] [address]- 9899 August, Essential hypertension I10 [facility] [address], [place] [address]- 3171 August, BMI 40.0-44.9, adult Z68.41 ; Dorsalgia, unspecified M54.9 ; Allergic state, initial encounter T78.40XA ; Mild intermittent asthma without complication J45.20 and 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 [facility] [id number] [place] [address] 60632- 1402 August, [facility] [id number] [place] [address] 80340- 7503 August, [facility] [id number] [place] [address] 17695- 2647 August, [facility] [id number] [place] [address] 58438- 1811 August, Reactive depression F32.9 [facility] [id number] [place] [address] 68335- 2744 August, [facility] [id number] [place] [address] 49536- 5016 August, [facility] [id number] [place] [address] 25437- 5864 August, [facility] [address], [place] [address]- 0530 August, [facility] [address], [place] [address]- 8416 August, [facility] [id number], [place] [address]- 0021 August, [facility] [id number] [place] [address] 19448- 7462 August, [facility] [address], [place] [address]- 7390 August, Muscle spasms of both lower extremities M62.838 ; Essential hypertension I10 and Reactive depression F32.9 [facility] [address], [place] [address]- 1590 August, [facility] [address], [place] [address]- 3943 Jul, [facility] [address], [place] [address]- 8542 Jul, [facility] [address], [place] [address]- 3516 Jul, [facility] [id number] [place] [address] 42288- 5201 Jul, [facility] [id number] [place] [address] 01496- 4408 Jul, [facility] [id number] [place] [address] 23710- 6118 Jul, [facility] [address], [place] [address]- 5244 Jul, [facility] [id number] [place] [address] 34303- 5944 Jul, [facility] [address], [place] [address]- 8092 Jul, Essential hypertension I10 ; Other chronic pain G89.29 ; Dorsalgia, unspecified M54.9 ; Reactive depression F32.9 ; Mild intermittent asthma without complication J45.20 ; Allergic state, initial encounter T78.40XA and Muscle spasms of both lower extremities M62.838 IMMUNIZATIONS No Known Immunizations SOCIAL HISTORY Never Assessed REASON FOR VISIT Re:RE:[employer] and refill PLAN OF CARE VITAL [...]
--- OUTSIDE RECORDS SUMMARY | 2018-04-06 08:03 | XMS REPORT ---
Author Author ROSALINA GRAHAM Organization [facility] Address [address] [place] [address] Care Team Providers Care Fondant Cooker Name Role Phone ROSALINA GRAHAM Unavailable PROBLEMS Type Condition ICD9-CM Code RVD19-NA Code Onset Dates Condition Status SNOMED Code Problem Muscle spasms of both lower extremities M62.838 Active 554395017 Problem Severe episode of recurrent major depressive disorder, without psychotic features F33.2 Active 96226781 Problem Reactive depression F32.9 Active 81101208 Problem Allergic state, initial encounter T78.40XA Active 934706843 Problem Essential hypertension I10 Active 88164328 Problem Dorsalgia, unspecified M54.9 Active 895484573 Problem Other chronic pain G89.29 Active 72238091 Problem Moderate persistent asthma without complication J45.40 Active 283208159 Problem Cervical disc disease with myelopathy M50.00 Active 18630157 Problem Falling R29.6 Active 059484424 Problem Generalized anxiety disorder F41.1 Active 86785956 Problem Panic disorder F41.0 Active 172756490 Problem PTSD (post-traumatic stress disorder) F43.10 Active 27992643 ALLERGIES No Information ENCOUNTERS Encounter Location Date Diagnosis [facility] [id number] [place] [address] 89723- 6597 Jan, [facility] [id number] [place] [address] 50024- 2658 Jan, [facility] [id number] [place] [address] 74143- 3284 Dec, Severe episode of recurrent major depressive disorder, without psychotic features F33.2 [facility] [id number] [place] [address] 91660- 9137 Dec, Encounter for immunization Z23 [facility] [id number] [place] [address] 16826- 8442 25 Dec, 2017 [facility] [id number] [address]- 2546 24 Sep, 2017 Severe episode of recurrent major depressive disorder, without psychotic features F33.2 ; PTSD (post-traumatic stress disorder) F43.10 ; Panic disorder F41.0 and BMI 40.0-44.9, adult Z68.41 [facility] [id number] [place] [address] 08818- 8237 23 Dec, 2017 [facility] [id number] [place] [address] 95434- 1267 Dec, [facility] [id number] [place] [address] 82781- 3561 Dec, Essential hypertension I10 [facility] [id number] [place] [address] 67339- 4275 14 Dec, 2017 [facility] [id number] [place] [address] 80281- 6561 06 Dec, 2017 [facility] [id number] [place] [address] 32500- 7868 05 Dec, 2017 BMI 40.0-44.9, adult Z68.41 ; Severe episode of recurrent major depressive disorder, without psychotic features F33.2 ; PTSD (post- traumatic stress disorder) F43.10 and Panic disorder F41.0 [facility] [id number] [address] 2541 05 Sep, 2017 [facility] [id number] [address] 2546 Sep, 2017 [facility] [id number] [place] [address] 54147 2542 05 Sep, 2017 Essential hypertension I10 [facility] [id number] [address] 1901 04 Sep, 2017 Severe episode of recurrent major depressive disorder, without psychotic features F33.2 [facility] [address] [address]- 7454 Dec, Severe episode of recurrent major depressive disorder, without psychotic features F33.2 and Generalized anxiety disorder F41.1 [facility] [id number] [place] [address] 64834- 6488 Nov, Cervical disc disease with myelopathy M50.00 [facility] [id number] [place] [address] 23248- 6569 Nov, Cervical disc disease with myelopathy M50.00 ; Moderate persistent asthma without complication J45.40 and BMI 40.0-44.9, adult Z68.41 [facility] [id number] [place] [address] 48355- 8854 Nov, [facility] [id number] [place] [address] 20970- 4121 Nov, [facility] [id number] [place] [address] 45265- 6698 Nov, [facility] [id number] [place] [address] 82826- 8743 Nov, [facility] [id number] [place] [address] 52418- 2598 Nov, [facility] [id number] [place] [address] 92020- 0556 Nov, [facility] [id number] [place] [address] 77009- 1058 Nov, [facility] [id number] [place] [address] 24110- 5878 Nov, [facility] [id number] [place] [address] 73366- 4690 Nov, [facility] [address] [address]- 8748 Nov, Severe episode of recurrent major depressive disorder, without psychotic features F33.2 ; PTSD (post-traumatic stress disorder) F43.10 ; Panic disorder F41.0 and BMI 40.0-44.9, adult Z68.41 [facility] [id number] [place] [address] 98704- 6509 Nov, [facility] [id number] [place] [address] 31959- 6232 Nov, Essential hypertension I10 [facility] [id number] [place] [address] 45089- 4636 Nov, Severe episode of recurrent major depressive disorder, without psychotic features F33.2 [facility] [id number] [place] [address] 04794- 4616 Nov, Acute pain of left knee M25.562 [facility] [id number] [place] [address] 05461- 7267 Nov, Severe episode of recurrent major depressive disorder, without psychotic features F33.2 ; PTSD (post-traumatic stress disorder) F43.10 ; Panic disorder F41.0 and BMI 40.0-44.9, adult Z68.41 [facility] [id number] [place] [address] 79046- 0165 Oct, [facility] [id number] [place] [address] 48100- 0334 Oct, [facility] [id number] [place] [address] 78036- 9355 Oct, [facility] [id number] [place] [address] 52595- 3684 Oct, [facility] [id number] [place] [address] 72287- 0989 Oct, Dorsalgia, unspecified M54.9 [facility] [id number] [place] [address] 01194- 1641 Oct, Severe episode of recurrent major depressive disorder, without psychotic features F33.2 and Generalized anxiety disorder F41.1 [address] [place] [address]- 0918 Oct, [facility] [address] [address]- 8282 Oct, [facility] [id number] [address]- 3079 Oct, [facility] [id number] [address]- 8311 Oct, [facility] [id number] [address]- 5799 Oct, [facility] [id number] [place] [address] 97269- 4824 Oct, [facility] [id number] [address]- 0999 Oct, [facility] [id number] [place] [address] 20638- 4891 Oct, [facility] [id number] [address]- 3785 Sep, Dorsalgia, unspecified M54.9 [facility] [id number] [address]- 0128 Sep, [facility] [id number] [address]- 0964 Sep, [facility] [id number] [address]- 2813 Sep, Falling R29.6 ; Essential hypertension I10 ; Chronic obstructive pulmonary disease, unspecified COPD type J44.9 and BMI 40.0-44.9, adult Z68.41 [facility] [id number] [address]- 5433 Sep, [facility] [id number] [address]- 6714 Sep, [facility] [id number] [place] [address] 44183- 8923 24 Sep, 2017 [facility] [id number] [place] [address] 97868- 1743 Sep, Mild intermittent asthma without complication J45.20 [facility] [id number] [address]- 0433 19 Sep, 2017 [facility] [id number] [place] [address] 01243- 7445 19 Sep, 2017 [facility] [id number] [place] [address] 27191- 9936 19 Sep, 2017 [facility] [id number] [place] [address] 61714- 4531 18 Sep, 2017 [facility] [id number] [place] [address] 72863- 8155 18 Sep, 2017 [facility] [id number] [place] [address] 38759- 5998 15 Sep, 2017 [facility] [id number] [place] [address] 20754- 8444 15 Sep, 2017 Essential hypertension I10 [facility] [id number] [place] [address] 66957- 2712 15 Sep, 2017 [facility] [id number] [address]- 9649 15 Sep, 2017 [facility] [id number] [address]- 4939 15 Sep, 2017 [facility] [id number] [address]- 2710 14 Sep, 2017 [facility] [id number] [place] [address] 47970- 7760 14 Sep, 2017 [facility] [id number] [address]- 2061 14 Sep, 2017 [facility] [id number] [place] [address] 97817- 5400 Sep, [facility] [id number] [address]- 3115 Sep, [facility] [id number] [place] [address] 75733- 2172 Sep, [facility] [id number] [place] [address] 84932- 4915 Sep, [facility] [id number] [place] [address] 80436- 7162 Sep, Mild intermittent asthma without complication J45.20 [facility] [id number] [place] [address] 19623- 5394 August, Essential hypertension I10 [facility] [id number] [place] [address] 93624- 4529 August, BMI 40.0-44.9, adult Z68.41 ; Dorsalgia, unspecified M54.9 ; Allergic state, initial encounter T78.40XA ; Mild intermittent asthma without complication J45.20 and 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 [facility] [id number] [place] [address] 96429- 9336 August, [facility] [id number] [place] [address] 47316- 2450 August, [facility] [id number] [place] [address] 97914- 1651 August, [facility] [id number] [place] [address] 05688- 9623 August, Reactive depression F32.9 [facility] [id number] [place] [address] 65165- 8897 August, [facility] [id number] [place] [address] 17319- 3482 August, [facility] [id number] [place] [address] 78273- 4955 August, [facility] [address] [facility] [id number] [place] [address]- 6871 August, [facility] [address] [address]- 7546 August, [facility] [id number] [address]- 4700 August, [facility] [id number] [place] [address], [place] [address]- 1147 August, [facility] [id number] [place] [address], [place] [address]- 8893 August, Muscle spasms of both lower extremities M62.838 ; Essential hypertension I10 and Reactive depression F32.9 [facility] [address] [address]- 4453 August, [facility] [id number] [place] [address], [place] [address]- 6477 Jul, [facility] [id number] [address]- 6591 30 Jul, 2017 [facility] [id number] [address]- 1517 Jul, [facility] [id number] [address]- 3828 Jul, [facility] [id number] [address]- 3554 Jul, [facility] [id number] [address]- 9842 Jul, [facility] [id number] [address]- 7983 Jul, [facility] [address] [address]- 4803 Jul, [facility] [address] [address]- 8020 Jul, Essential hypertension I10 ; Other chronic pain G89.29 ; Dorsalgia, unspecified M54.9 ; Reactive depression F32.9 ; Mild intermittent asthma without complication J45.20 ; Allergic state, initial encounter T78.40XA and Muscle spasms of both lower extremities M62.838 IMMUNIZATIONS No Known Immunizations SOCIAL HISTORY Never Assessed REASON FOR VISIT Dentail PLAN OF CARE VITAL SIGNS MEDICATIONS Unknown [...]
--- OUTSIDE RECORDS SUMMARY | 2018-04-06 08:03 | XMS REPORT ---
Author Author LUCI RANGEL Organization [facility], [place] Address [address] [place] [address] Care Team Providers Care Headline Writer Name Role Phone RANGEL VERMA Unavailable PROBLEMS Type Condition ICD9-CM Code NEZ43-VY Code Onset Dates Condition Status SNOMED Code Problem Muscle spasms of both lower extremities M62.838 Active 254317414 Problem Severe episode of recurrent major depressive disorder, without psychotic features F33.2 Active 99748239 Problem Reactive depression F32.9 Active 77336439 Problem Allergic state, initial encounter T78.40XA Active 095842553 Problem Essential hypertension I10 Active 75781690 Problem Dorsalgia, unspecified M54.9 Active 410779438 Problem Other chronic pain G89.29 Active 88440008 Problem Moderate persistent asthma without complication J45.40 Active 019381983 Problem Cervical disc disease with myelopathy M50.00 Active 10190503 Problem Falling R29.6 Active 860329288 Problem Generalized anxiety disorder F41.1 Active 85957878 Problem Panic disorder F41.0 Active 200304595 Problem PTSD (post-traumatic stress disorder) F43.10 Active 59602228 ALLERGIES No Known Allergies ENCOUNTERS Encounter Location Date Diagnosis [facility], [place] [address], [place] [address] Jan, [facility], [place] [address], [place] [address] Jan, [facility], [place] [id number] [place] [address] 72417- 9300 Dec, Severe episode of recurrent major depressive disorder, without psychotic features F33.2 [facility], [place] [id number], [place] [address] Dec, Encounter for immunization Z23 [facility], [place] [id number], [place] [address] 25 Dec, 2017 [facility], [place] [id number] [place] [address] 86708- 3966 24 Sep, 2017 Severe episode of recurrent major depressive disorder, without psychotic features F33.2 ; PTSD (post-traumatic stress disorder) F43.10 ; Panic disorder F41.0 and BMI 40.0-44.9, adult Z68.41 [facility], [place] [id number] [place] [address] 18893 2548 23 Dec, 2017 [facility], [place] [id number] [place] [address] 41963- 8276 Dec, [facility], [place] [id number] [place] [address] 65212- 5897 Dec, 2017 Essential hypertension I10 [facility] [place] [id number] [place] [address] 21992- 1957 14 Dec, 2017 [facility] [place] [id number] [place] [address] 50905- 3754 06 Dec, 2017 [facility] [place] [id number] [place] [address] 30932- 2547 05 Sep, 2017 BMI 40.0-44.9, adult Z68.41 ; Severe episode of recurrent major depressive disorder, without psychotic features F33.2 ; PTSD (post- traumatic stress disorder) F43.10 and Panic disorder F41.0 [facility], [place] [address], [place] [address] 2545 05 Sep, 2017 [facility] [place] [address], [place] [address] 2546 05 Dec, 2017 [facility] [place] [id number] [place] [address] 56400 2546 05 Sep, 2017 Essential hypertension I10 [facility] [place] [id number] [place] [address] 65664- 5508 04 Sep, 2017 Severe episode of recurrent major depressive disorder, without psychotic features F33.2 [facility] [place] [id number] [place] [address] 59090- 3554 Dec, Severe episode of recurrent major depressive disorder, without psychotic features F33.2 and Generalized anxiety disorder F41.1 [facility] [place] [id number] [place] [address] 60139- 5870 Nov, Cervical disc disease with myelopathy M50.00 [facility], [place] [id number] [place] [address] 71293- 5512 Nov, Cervical disc disease with myelopathy M50.00 ; Moderate persistent asthma without complication J45.40 and BMI 40.0-44.9, adult Z68.41 [facility] [place] [id number] [place] [address] 97316- 5817 Nov, [facility] [place] [id number] [place] [address] 96694- 5728 Nov, [facility] [place] [id number] [place] [address] 57436- 2206 Nov, [facility] [place] [id number] [place] [address] 79008- 1034 Nov, [facility] [place] [id number] [place] [address] 31346- 3917 Nov, [facility] [place] [id number] [place] [address] 82123- 3761 Nov, [facility] [place] [id number] [place] [address] 01388- 3275 Nov, [facility] [place] [id number] [place] [address] 22968- 5066 Nov, [facility] [place] [id number] [place] [address] 11058- 3871 Nov, [facility] [place] [id number] [place] [address] 54693- 5567 Nov, Severe episode of recurrent major depressive disorder, without psychotic features F33.2 ; PTSD (post-traumatic stress disorder) F43.10 ; Panic disorder F41.0 and BMI 40.0-44.9, adult Z68.41 [facility], [place] [id number] [place] [address] 56210- 4243 Nov, [facility] [place] [id number] [place] [address] 54753- 6353 Nov, Essential hypertension I10 [facility] [place] [id number] [place] [address] 33255- 6244 Nov, Severe episode of recurrent major depressive disorder, without psychotic features F33.2 [address] [place] [id number] [place] [address] 38409- 0999 Nov, Acute pain of left knee M25.562 [address] [place] [id number] [place] [address] 93593- 0658 Nov, Severe episode of recurrent major depressive disorder, without psychotic features F33.2 ; PTSD (post-traumatic stress disorder) F43.10 ; Panic disorder F41.0 and BMI 40.0-44.9, adult Z68.41 [address] [id number] [place] [address] 58583- 4132 Oct, [facility] [place] [id number] [place] [address] 27348- 3849 Oct, [facility], [place] [id number] [place] [address] 03510- 4325 Oct, [facility] [place] [id number] [place] [address] 78771- 2795 Oct, [facility], [place] [id number] [place] [address] 05942- 7507 Oct, Dorsalgia, unspecified M54.9 [facility], [place] [id number] [place] [address] 50835- 7888 Oct, Severe episode of recurrent major depressive disorder, without psychotic features F33.2 and Generalized anxiety disorder F41.1 [place] [id number] [address]- 3283 Oct, [facility], [place] [id number] [address]- 3566 Oct, [facility], [place] [id number] [address]- 9104 Oct, [facility], [place] [id number] [place] [address], [place] [address]- 6142 Oct, [facility], [place] [id number] [place] [address], [place] [address]- 4040 Oct, [facility], [place] [id number] [place] [address], [place] [address]- 9556 Oct, [facility] [place] [id number] [place] [address], [place] [address]- 9715 Oct, [facility], [place] [id number] [place] [address], [place] [address]- 6991 Oct, [facility], [place] [address], [place] [address]- 2694 Sep, Dorsalgia, unspecified M54.9 [facility], [place] [address], [place] [address]- 2565 Sep, [facility], [place] [address], [place] [address]- 9049 Sep, [facility], [place] [address], [place] [address]- 8703 Sep, Falling R29.6 ; Essential hypertension I10 ; Chronic obstructive pulmonary disease, unspecified COPD type J44.9 and BMI 40.0-44.9, adult Z68.41 [facility], [place] [address], [place] [address]- 1499 Sep, [facility], [place] [address], [place] [address]- 5886 Sep, [facility] [place] [id number], [place] [address]- 0904 24 Sep, 2017 [facility], [place] [id number] [place] [address] 66840- 4111 21 Sep, 2017 Mild intermittent asthma without complication J45.20 [facility], [place] [id number] [address]- 4818 19 Sep, 2017 [facility], [place] [id number] [place] [address] 74878- 5144 19 Sep, 2017 [facility], [place] [id number] [place] [address] 18349- 1282 19 Sep, 2017 [facility] [place] [id number] [place] [address], [place] [address]- 1479 18 Sep, 2017 [facility], [place] [id number] [place] [address] 72787- 8494 18 Sep, 2017 [facility] [place] [id number] [place] [address] 67958- 2196 15 Sep, 2017 [facility], [place] [id number] [place] [address] 79108- 5277 15 Sep, 2017 Essential hypertension I10 [facility], [place] [id number] [place] [address] 21595- 4048 15 Sep, 2017 [facility], [place] [id number] [place] [address] 74528- 7174 15 Sep, 2017 [facility], [place] [id number] [place] [address] 18612- 4384 15 Sep, 2017 [facility], [place] [id number] [place] [address] 24030- 2339 14 Sep, 2017 [facility], [place] [id number] [place] [address], [place] [address]- 8316 14 Sep, 2017 [facility], [place] [address], [place] [address]- 1808 14 Sep, 2017 [facility], [place] [id number] [place] [address] 36486- 8157 Sep, [facility], [place] [address], [place] [address]- 2190 Sep, [facility], [place] [id number] [place] [address] 62608- 6345 Sep, [facility], [place] [id number] [place] [address] 00628- 0533 Sep, [facility], [place] [id number] [place] [address] 45239- 1045 Sep, Mild intermittent asthma without complication J45.20 [facility], [place] [id number] [place] [address] 70871- 8079 August, Essential hypertension I10 [facility], [place] [id number] [place] [address] 06162- 9991 August, BMI 40.0-44.9, adult Z68.41 ; Dorsalgia, unspecified M54.9 ; Allergic state, initial encounter T78.40XA ; Mild intermittent asthma without complication J45.20 and 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 [facility], [place] [id number] [place] [address] 69338- 1883 August, [facility], [place] [id number] [place] [address] 03625- 9014 August, [facility], [place] [id number] [place] [address] 71789- 5238 August, [facility], [place] [id number] [place] [address] 63655- 4648 August, Reactive depression F32.9 [facility], [place] [id number] [place] [address] 03310- 2374 August, [facility], [place] [id number] [place] [address] 77121- 7234 August, [facility], [place] [id number] [place] [address] 16933- 7322 August, [facility], [place] [address] [facility] [id number] [place] [address]- 6510 August, [facility], [place] [address] [facility] [id number] [place] [address]- 9866 August, [facility], [place] [address] [facility] [id number] [place]- 8413 August, [facility], [place] [address] [facility] [id number] [place] [address], [place]- 2198 August, [facility], [place] [address] [facility] [id number] [place] 8630 August, Muscle spasms of both lower extremities M62.838 ; Essential hypertension I10 and Reactive depression F32.9 [facility], [place] [id number] [address]- 1005 August, [facility], [place] [id number] [address]- 1403 Jul, [facility], [place] [id number] [address]- 0518 Jul, [facility], [place] [id number] [address]- 5398 Jul, [facility], [place] [id number] [address]- 6375 Jul, [facility], [place] [id number] [address]- 1208 Jul, [facility] [place] [address] [facility] [id number] [place] [address]- 9610 Jul, [facility] [place] [address] [facility] [id number] [place] [address]- 9141 Jul, [facility], [place] [address] [facility] [id number] [place]- 7850 Jul, [facility] [address] [facility] [id number] [place] [address]- 8388 Jul, Essential hypertension I10 ; Other chronic pain G89.29 ; Dorsalgia, unspecified M54.9 ; Reactive depression F32.9 ; Mild intermittent asthma without complication J45.20 ; Allergic state, initial encounter T78.40XA and Muscle spasms of both lower extremities M62.838 IMMUNIZATIONS No Known Immunizations SOCIAL HISTORY Never Assessed REASON FOR VISIT adiel richmond rn, Allergy medication not working, Would like talk continuing to decrease Xanax PLAN OF CARE Activity Details Follow Up 2 Weeks Reason: VITAL SIGNS Height 66 in 2017-12-22 Weight 265.5 lbs 2017-12-22 Temperature 98.7 degrees Fahrenheit 2017-12-22 Heart Rate 72 bpm 2017-12-22 Respiratory Rate 20 2017-12-22 BMI 42.85 kg/m2 2017-12-22 Blood pressure systolic 122 mmHg 2017-12-22 Blood pressure diastolic 72 mmHg 2017-12-22 MEDICATIONS Medication Instructions Dosage Frequency Start Date End Date Duration Status ProAir HFA 108 (90 Base) MCG/ACT Inhalation every 6 hrs 2 puffs as needed 6h Sep, Active Breo Ellipta 100-25 MCG/INH Inhalation Once a day 1 puff 24h Sep, Active BusPIRone HCl 5 MG Orally Three times a day 1 tablet 8h Dec, 30 days Active Zoloft 100 mg Orally Once a day 2 tablet 24h Active Singulair 10 mg Orally Once a day 1 tablet 24h Active Xanax XR 0.5 MG Orally Once a day 1 tablet 24h Active Allergy 12 MG Orally every 12 hrs 1 tablet as needed 12h Active Losartan Potassium 100 mg Orally Once a day 1 tablet 24h 30 days Active Atenolol 50 mg Orally Once a day 1 tablet 24h 90 days Active Gabapentin 300 MG Orally twice a day 1 capsule 12h Active Soma 350 MG Orally 3 times a day 1 tablet as needed 8h Nov, Active Lovastatin 40 mg Orally Once a [...]
--- OUTSIDE RECORDS SUMMARY | 2018-04-06 08:03 | XMS REPORT ---
Author Author ROSALINA GRAHAM Organization [facility] Address [address] [place] [address] Care Team Providers Care Supervisor Pipe Joints Name Role Phone ROSALINA GRAHAM Unavailable PROBLEMS Type Condition ICD9-CM Code NYV94-DM Code Onset Dates Condition Status SNOMED Code Problem Muscle spasms of both lower extremities M62.838 Active 750517766 Problem Severe episode of recurrent major depressive disorder, without psychotic features F33.2 Active 75021065 Problem Reactive depression F32.9 Active 71903977 Problem Allergic state, initial encounter T78.40XA Active 627917676 Problem Essential hypertension I10 Active 53215879 Problem Dorsalgia, unspecified M54.9 Active 911238376 Problem Other chronic pain G89.29 Active 50282517 Problem Moderate persistent asthma without complication J45.40 Active 339590647 Problem Cervical disc disease with myelopathy M50.00 Active 45744175 Problem Falling R29.6 Active 530085642 Problem Generalized anxiety disorder F41.1 Active 88492866 Problem Panic disorder F41.0 Active 236151767 Problem PTSD (post-traumatic stress disorder) F43.10 Active 99105737 ALLERGIES No Information ENCOUNTERS Encounter Location Date Diagnosis [facility] [id number] [place] [address] 03856- 8419 Jan, [facility] [id number] [place] [address] 16778- 1106 Jan, [facility] [id number] [place] [address] 43637- 4129 Dec, Severe episode of recurrent major depressive disorder, without psychotic features F33.2 [facility] [id number] [place] [address] 67558- 8086 Dec, Encounter for immunization Z23 [facility] [id number] [place] [address] 12489- 9342 25 Dec, 2017 [facility] [address] [address] 2546 24 Sep, 2017 Severe episode of recurrent major depressive disorder, without psychotic features F33.2 ; PTSD (post-traumatic stress disorder) F43.10 ; Panic disorder F41.0 and BMI 40.0-44.9, adult Z68.41 [facility] [id number] [place] [address] 63584- 8808 23 Dec, 2017 [facility] [id number] [place] [address] 87834- 0598 Dec, [facility] [id number] [place] [address] 30521- 9020 Dec, Essential hypertension I10 [facility] [id number] [place] [address] 73045- 0152 14 Dec, 2017 [facility] [id number] [place] [address] 56383- 1015 06 Dec, 2017 [facility] [id number] [place] [address] 98543- 3325 05 Dec, 2017 BMI 40.0-44.9, adult Z68.41 ; Severe episode of recurrent major depressive disorder, without psychotic features F33.2 ; PTSD (post- traumatic stress disorder) F43.10 and Panic disorder F41.0 [facility] [address] [address] 2542 05 Sep, 2017 [facility] [id number] [address] 2546 Sep, 2017 [facility] [id number] [place] [address] 61623 2542 05 Sep, 2017 Essential hypertension I10 [facility] [address] [address]- 8056 04 Sep, 2017 Severe episode of recurrent major depressive disorder, without psychotic features F33.2 [facility] [address] [address] 1303 Dec, Severe episode of recurrent major depressive disorder, without psychotic features F33.2 and Generalized anxiety disorder F41.1 [facility] [id number] [place] [address] 83601- 5508 Nov, Cervical disc disease with myelopathy M50.00 [facility] [id number] [place] [address] 39605- 5858 Nov, Cervical disc disease with myelopathy M50.00 ; Moderate persistent asthma without complication J45.40 and BMI 40.0-44.9, adult Z68.41 [facility] [id number] [place] [address] 35964- 3989 Nov, [facility] [id number] [place] [address] 55687- 4253 Nov, [facility] [id number] [place] [address] 25299- 2958 Nov, [facility] [id number] [place] [address] 81537- 4447 Nov, [facility] [id number] [place] [address] 61117- 5029 Nov, [facility] [id number] [place] [address] 61667- 1491 Nov, [facility] [id number] [place] [address] 28801- 5528 Nov, [facility] [id number] [place] [address] 19863- 4513 Nov, [facility] [id number] [place] [address] 90261- 9722 Nov, [facility] [address] [address]- 9385 Nov, Severe episode of recurrent major depressive disorder, without psychotic features F33.2 ; PTSD (post-traumatic stress disorder) F43.10 ; Panic disorder F41.0 and BMI 40.0-44.9, adult Z68.41 [facility] [id number] [place] [address] 54371- 8280 Nov, [facility] [id number] [place] [address] 13812- 5381 Nov, Essential hypertension I10 [facility] [id number] [place] [address] 25901- 9357 Nov, Severe episode of recurrent major depressive disorder, without psychotic features F33.2 [facility] [id number] [place] [address] 20337- 4968 Nov, Acute pain of left knee M25.562 [facility] [id number] [place] [address] 49036- 7808 Nov, Severe episode of recurrent major depressive disorder, without psychotic features F33.2 ; PTSD (post-traumatic stress disorder) F43.10 ; Panic disorder F41.0 and BMI 40.0-44.9, adult Z68.41 [facility] [id number] [place] [address] 75865- 0799 Oct, [facility] [id number] [place] [address] 49302- 6724 Oct, [facility] [id number] [place] [address] 46551- 0024 Oct, [facility] [id number] [place] [address] 18812- 5132 Oct, [facility] [id number] [place] [address] 33317- 5380 Oct, Dorsalgia, unspecified M54.9 [facility] [id number] [place] [address] 66662- 6286 Oct, Severe episode of recurrent major depressive disorder, without psychotic features F33.2 and Generalized anxiety disorder F41.1 [place] [address] [address] [place] [address]- 0557 Oct, [facility] [address] [address]- 0763 Oct, [facility] [address] [address]- 0554 Oct, [facility] [address] [address]- 9009 Oct, [facility] [address] [address]- 9400 Oct, [facility] [id number] [place] [address] 74190- 1552 Oct, [facility] [id number] [address]- 2303 Oct, [facility] [id number] [place] [address] 19746- 1106 Oct, [facility] [address] [address]- 6197 Sep, Dorsalgia, unspecified M54.9 [facility] [address] [address]- 5292 Sep, [facility] [address] [address]- 4148 Sep, [facility] [address] [address]- 7379 Sep, Falling R29.6 ; Essential hypertension I10 ; Chronic obstructive pulmonary disease, unspecified COPD type J44.9 and BMI 40.0-44.9, adult Z68.41 [facility] [address] [address]- 5316 Sep, [facility] [address] [address]- 4947 Sep, [facility] [id number] [place] [address] 72008- 1651 24 Sep, 2017 [facility] [id number] [place] [address] 61851- 3600 Sep, Mild intermittent asthma without complication J45.20 [facility] [id number] [place] [address]- 8355 19 Sep, 2017 [facility] [id number] [place] [address] 71069- 4238 19 Sep, 2017 [facility] [id number] [place] [address] 61147- 4074 19 Sep, 2017 [facility] [id number] [place] [address] 82069- 2092 18 Sep, 2017 [facility] [id number] [place] [address] 18521- 8746 18 Sep, 2017 [facility] [id number] [place] [address] 31835- 6717 15 Sep, 2017 [facility] [id number] [place] [address] 95693- 4317 15 Sep, 2017 Essential hypertension I10 [facility] [id number] [place] [address] 16506- 1899 15 Sep, 2017 [facility] [address] [address]- 5199 15 Sep, 2017 [facility] [address] [address]- 8958 15 Sep, 2017 [facility] [address] [address]- 5377 14 Sep, 2017 [facility] [id number] [place] [address] 85385- 0430 14 Sep, 2017 [facility] [address] [address]- 5774 14 Sep, 2017 [facility] [id number] [place] [address] 16452- 3055 Sep, [facility] [address] [address]- 7971 Sep, [facility] [id number] [place] [address] 65161- 9590 Sep, [facility] [id number] [place] [address] 25927- 9495 Sep, [facility] [id number] [place] [address] 78104- 1113 Sep, Mild intermittent asthma without complication J45.20 [facility] [id number] [place] [address] 72693- 7302 August, Essential hypertension I10 [facility] [id number] [place] [address] 97867- 4882 August, BMI 40.0-44.9, adult Z68.41 ; Dorsalgia, unspecified M54.9 ; Allergic state, initial encounter T78.40XA ; Mild intermittent asthma without complication J45.20 and 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 [facility] [id number] [place] [address] 70717- 0607 August, [facility] [id number] [place] [address] 94327- 5303 August, [facility] [id number] [place] [address] 80658- 3147 August, [facility] [id number] [place] [address] 31471- 6837 August, Reactive depression F32.9 [facility] [id number] [place] [address] 91413- 6273 August, [facility] [id number] [place] [address] 74494- 2607 August, [facility] [id number] [place] [address] 68273- 1813 August, [facility] [address] [facility] [id number] [place] [address]- 7003 August, [facility] [id number] [place] [address]- 6816 August, [facility] [id number] [place] [address]- 7629 August, [facility] [id number] [place] [address], [place] [address]- 4991 August, [facility] [address] [place] [address], [place] [address]- 5638 August, Muscle spasms of both lower extremities M62.838 ; Essential hypertension I10 and Reactive depression F32.9 [facility] [address] [place] [address]- 9571 August, [facility] [id number] [place] [address], [place] [address]- 3229 Jul, [facility] [address] [place] [address]- 5362 30 Jul, 2017 [facility] [id number] [place] [address]- 9468 Jul, [facility] [address] [place] [address]- 9029 Jul, [facility] [id number] [place] [address]- 9699 Jul, [facility] [id number] [place] [address]- 6255 Jul, [facility] [id number] [place] [address]- 5453 Jul, [facility] [id number] [place] [address]- 2856 Jul, [facility] [address] [place] [address]- 2477 Jul, Essential hypertension I10 ; Other chronic pain G89.29 ; Dorsalgia, unspecified M54.9 ; Reactive depression F32.9 ; Mild intermittent asthma without complication J45.20 ; Allergic state, initial encounter T78.40XA and Muscle spasms of both lower extremities M62.838 IMMUNIZATIONS No Known Immunizations SOCIAL HISTORY Never Assessed REASON FOR VISIT Re:RE:Dent[employer] PLAN OF CARE VITAL SIGNS MEDICATIONS Unknown [...]
--- OUTSIDE RECORDS SUMMARY | 2018-04-06 08:03 | XMS REPORT ---
Author Author ROSALINA GRAHAM Organization [facility] Address [address] [place] [address] Care Team Providers Care Plant Etiologist Name Role Phone ROSALINA GRAHAM Unavailable PROBLEMS Type Condition ICD9-CM Code [id number] Code Onset Dates Condition Status SNOMED Code Problem Muscle spasms of both lower extremities M62.838 Active 704275023 Problem Severe episode of recurrent major depressive disorder, without psychotic features F33.2 Active 98762590 Problem Reactive depression F32.9 Active 23017526 Problem Allergic state, initial encounter T78.40XA Active 623388088 Problem Essential hypertension I10 Active 99464704 Problem Dorsalgia, unspecified M54.9 Active 794949276 Problem Other chronic pain G89.29 Active 89431576 Problem Moderate persistent asthma without complication J45.40 Active 257159836 Problem Cervical disc disease with myelopathy M50.00 Active 79162195 Problem Falling R29.6 Active 437075713 Problem Generalized anxiety disorder F41.1 Active 53193304 Problem Panic disorder F41.0 Active 159866627 Problem PTSD (post-traumatic stress disorder) F43.10 Active 79185486 ALLERGIES No Information ENCOUNTERS Encounter Location Date Diagnosis [facility] [id number] [place] [address] 77644- 1099 Jan, [facility] [id number] [place] [address] 49160- 0587 Jan, [facility] [id number] [place] [address] 15352- 0623 Dec, Severe episode of recurrent major depressive disorder, without psychotic features F33.2 [facility] [id number] [place] [address] 78014- 8530 Dec, Encounter for immunization Z23 [facility] [id number] [place] [address] 10661- 8141 25 Dec, 2017 [facility] [address] [address] 2546 24 Sep, 2017 Severe episode of recurrent major depressive disorder, without psychotic features F33.2 ; PTSD (post-traumatic stress disorder) F43.10 ; Panic disorder F41.0 and BMI 40.0-44.9, adult Z68.41 [facility] [id number] [place] [address] 29959- 1376 23 Dec, 2017 [facility] [id number] [place] [address] 63998- 1956 Dec, [facility] [id number] [place] [address] 05796- 1308 Dec, Essential hypertension I10 [facility] [id number] [place] [address] 74417- 4785 14 Dec, 2017 [facility] [id number] [place] [address] 77794- 7424 06 Dec, 2017 [facility] [id number] [place] [address] 95934- 5467 05 Dec, 2017 BMI 40.0-44.9, adult Z68.41 ; Severe episode of recurrent major depressive disorder, without psychotic features F33.2 ; PTSD (post- traumatic stress disorder) F43.10 and Panic disorder F41.0 [facility] [address] [address] 2548 05 Sep, 2017 [facility] [id number] [address] 2546 Sep, 2017 [facility] [address] [place] [address] 56989 2540 05 Sep, 2017 Essential hypertension I10 [facility] [address] [address] 0418 04 Sep, 2017 Severe episode of recurrent major depressive disorder, without psychotic features F33.2 [facility] [address] [place] [address]- 0545 Dec, Severe episode of recurrent major depressive disorder, without psychotic features F33.2 and Generalized anxiety disorder F41.1 [facility] [address] [place] [address] 33020- 5573 Nov, Cervical disc disease with myelopathy M50.00 [facility] [id number] [place] [address] 95510- 1478 Nov, Cervical disc disease with myelopathy M50.00 ; Moderate persistent asthma without complication J45.40 and BMI 40.0-44.9, adult Z68.41 [facility] [id number] [place] [address] 23656- 7252 Nov, [facility] [id number] [place] [address] 20048- 6467 Nov, [facility] [id number] [place] [address] 51888- 7342 Nov, [facility] [id number] [place] [address] 58399- 2563 Nov, [facility] [id number] [place] [address] 48546- 8272 Nov, [facility] [address] [place] [address] 74958- 1896 Nov, [facility] [id number] [place] [address] 10346- 1509 Nov, [facility] [address] [place] [address] 45781- 3606 Nov, [facility] [id number] [place] [address] 71491- 4114 Nov, [facility] [address], [place] [address]- 6562 Nov, Severe episode of recurrent major depressive disorder, without psychotic features F33.2 ; PTSD (post-traumatic stress disorder) F43.10 ; Panic disorder F41.0 and BMI 40.0-44.9, adult Z68.41 [facility] [id number] [place] [address] 23732- 4741 Nov, [facility] [id number] [place] [address] 79252- 7671 Nov, Essential hypertension I10 [facility] [id number] [place] [address] 07990- 4686 Nov, Severe episode of recurrent major depressive disorder, without psychotic features F33.2 [facility] [id number] [place] [address] 17719- 1159 Nov, Acute pain of left knee M25.562 [facility] [id number] [place] [address] 80738- 2404 Nov, Severe episode of recurrent major depressive disorder, without psychotic features F33.2 ; PTSD (post-traumatic stress disorder) F43.10 ; Panic disorder F41.0 and BMI 40.0-44.9, adult Z68.41 [facility] [id number] [place] [address] 01029- 7740 Oct, [facility] [id number] [place] [address] 26005- 9331 Oct, [facility] [id number] [place] [address] 13466- 3671 Oct, [facility] [id number] [place] [address] 73057- 0326 Oct, [facility] [id number] [place] [address] 24191- 1455 Oct, Dorsalgia, unspecified M54.9 [facility] [id number] [place] [address] 06994- 4552 Oct, Severe episode of recurrent major depressive disorder, without psychotic features F33.2 and Generalized anxiety disorder F41.1 [place] [address] [place] [address]- 4781 Oct, [facility] [address], [place] [address]- 9868 Oct, [facility] [address], [place] [address]- 9224 Oct, [facility] [address], [place] [address]- 1204 Oct, [facility] [address] [address]- 2091 Oct, [facility] [address] [place] [address] 57162- 2342 Oct, [facility] [address] [address]- 3532 Oct, [facility] [id number] [place] [address] 57418- 2065 Oct, [facility] [address], [place] [address]- 6283 Sep, Dorsalgia, unspecified M54.9 [facility] [address], [place] [address]- 8309 Sep, [facility] [address], [place] [address]- 1345 Sep, [facility] [address], [place] [address]- 7841 Sep, Falling R29.6 ; Essential hypertension I10 ; Chronic obstructive pulmonary disease, unspecified COPD type J44.9 and BMI 40.0-44.9, adult Z68.41 [facility] [address], [place] [address]- 9595 Sep, [facility] [address], [place] [address]- 6997 Sep, [facility] [address] [place] [address] 33511- 2739 24 Sep, 2017 [facility] [address] [place] [address] 49941- 7553 Sep, Mild intermittent asthma without complication J45.20 [facility] [address] [place] [address]- 8384 19 Sep, 2017 [facility] [id number] [place] [address] 11337- 0787 19 Sep, 2017 [facility] [id number] [place] [address] 53834- 6535 19 Sep, 2017 [facility] [id number] [place] [address] 17299- 9571 18 Sep, 2017 [facility] [address] [place] [address] 00845- 2451 18 Sep, 2017 [facility] [id number] [place] [address] 06016- 0584 15 Sep, 2017 [facility] [address] [place] [address] 97981- 2249 15 Sep, 2017 Essential hypertension I10 [facility] [address] [place] [address] 45343- 3855 15 Sep, 2017 [facility] [address], [place] [address]- 5960 15 Sep, 2017 [facility] [address], [place] [address]- 0104 15 Sep, 2017 [facility] [address], [place] [address]- 7499 14 Sep, 2017 [facility] [address] [place] [address] 90040- 8020 14 Sep, 2017 [facility] [address] [place] [address]- 9235 14 Sep, 2017 [facility] [address] [place] [address] 27632- 2030 Sep, [facility] [address], [place] [address]- 9734 Sep, [facility] [id number] [place] [address] 32997- 2410 Sep, [facility] [id number] [place] [address] 93909- 3101 Sep, [facility] [id number] [place] [address] 31072- 4516 Sep, Mild intermittent asthma without complication J45.20 [facility] [id number] [place] [address] 49206- 5694 August, Essential hypertension I10 [facility] [id number] [place] [address] 02783- 8567 August, BMI 40.0-44.9, adult Z68.41 ; Dorsalgia, unspecified M54.9 ; Allergic state, initial encounter T78.40XA ; Mild intermittent asthma without complication J45.20 and 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 [facility] [id number] [place] [address] 22711- 8505 August, [facility] [id number] [place] [address] 78695- 9476 August, [facility] [id number] [place] [address] 25075- 7435 August, [facility] [id number] [place] [address] 72279- 0213 August, Reactive depression F32.9 [facility] [id number] [place] [address] 89208- 5307 August, [facility] [id number] [place] [address] 94546- 5809 August, [facility] [id number] [place] [address] 55742- 3280 August, [facility] [address] [facility] [id number] [place] [address]- 3169 August, [facility] [address] [place] [address]- 6673 August, [facility] [id number] [place] [address]- 2659 August, [facility] [id number] [place] [address], [place] [address]- 2179 August, [facility] [address] [place] [address], [place] [address]- 0749 August, Muscle spasms of both lower extremities M62.838 ; Essential hypertension I10 and Reactive depression F32.9 [facility] [address] [place] [address]- 2372 August, [facility] [id number] [place] [address], [place] [address]- 7646 Jul, [facility] [address] [place] [address]- 7830 30 Jul, 2017 [facility] [id number] [place] [address]- 1539 Jul, [facility] [address] [place] [address]- 8294 Jul, [facility] [address] [place] [address]- 9073 Jul, [facility] [id number] [place] [address]- 9239 Jul, [facility] [id number] [place] [address]- 3527 Jul, [facility] [address] [place] [address]- 9361 Jul, [facility] [address] [place] [address]- 0354 Jul, Essential hypertension I10 ; Other chronic pain G89.29 ; Dorsalgia, unspecified M54.9 ; Reactive depression F32.9 ; Mild intermittent asthma without complication J45.20 ; Allergic state, initial encounter T78.40XA and Muscle spasms of both lower extremities M62.838 IMMUNIZATIONS No Known Immunizations SOCIAL HISTORY Never Assessed REASON FOR VISIT Re:RE:Blood pressure meds / Massage therapy PLAN OF CARE VITAL SIGNS MEDICATIONS Unknown [...]
--- OUTSIDE RECORDS SUMMARY | 2018-04-06 08:04 | XMS REPORT ---
Author Author ROSALINA GRAHAM Organization [facility] Address [address] [place] [address] Care Team Providers Care Prover Name Role Phone ROSALINA GRAHAM Unavailable PROBLEMS Type Condition ICD9-CM Code RDD81-WT Code Onset Dates Condition Status SNOMED Code Problem Muscle spasms of both lower extremities M62.838 Active 863252081 Problem Severe episode of recurrent major depressive disorder, without psychotic features F33.2 Active 57082495 Problem Reactive depression F32.9 Active 09503336 Problem Allergic state, initial encounter T78.40XA Active 817233715 Problem Essential hypertension I10 Active 27129712 Problem Dorsalgia, unspecified M54.9 Active 868995406 Problem Other chronic pain G89.29 Active 80879022 Problem Moderate persistent asthma without complication J45.40 Active 311266749 Problem Cervical disc disease with myelopathy M50.00 Active 32263803 Problem Falling R29.6 Active 984313535 Problem Generalized anxiety disorder F41.1 Active 45029789 Problem Panic disorder F41.0 Active 882839532 Problem PTSD (post-traumatic stress disorder) F43.10 Active 25071066 ALLERGIES No Known Allergies ENCOUNTERS Encounter Location Date Diagnosis [facility] [id number] [address] Jan, [facility] [id number] [address] Jan, [facility] [id number] [place] [address] 96957- 4527 Dec, [facility] [id number] [place] [address] 98405- 4652 Dec, Severe episode of recurrent major depressive disorder, without psychotic features F33.2 ; PTSD (post-traumatic stress disorder) F43.10 ; Panic disorder F41.0 and BMI 40.0-44.9, adult Z68.41 [facility] [address] [address] Dec, [facility] [id number] [place] [address] 05356- 0324 Dec, [facility] [id number] [place] [address] 92093- 4162 Dec, Essential hypertension I10 [facility] [id number] [place] [address] 77124- 1870 14 Dec, 2017 [facility] [id number] [place] [address] 92112- 6046 Dec, [facility] [id number] [place] [address] 41046- 8021 Dec, BMI 40.0-44.9, adult Z68.41 ; Severe episode of recurrent major depressive disorder, without psychotic features F33.2 ; PTSD (post- traumatic stress disorder) F43.10 and Panic disorder F41.0 [facility] [id number] [place] [address] 31045- 5821 Dec, [facility] [id number] [place] [address] 25310- 2878 Dec, [facility] [id number] [place] [address] 49078- 6455 Dec, Essential hypertension I10 [facility] [id number] [place] [address] 49266- 9290 Dec, Severe episode of recurrent major depressive disorder, without psychotic features F33.2 [facility] [id number] [place] [address] 08279- 5925 Dec, Severe episode of recurrent major depressive disorder, without psychotic features F33.2 and Generalized anxiety disorder F41.1 [facility] [id number] [place] [address] 43833- 6217 Nov, Cervical disc disease with myelopathy M50.00 [facility] [address] [address] Nov, Cervical disc disease with myelopathy M50.00 ; Moderate persistent asthma without complication J45.40 and BMI 40.0-44.9, adult Z68.41 [facility] [address] [address] Nov, [facility] [id number] [place] [address] 73536- 4477 Nov, [facility] [id number] [place] [address] 15925- 8166 Nov, [facility] [id number] [place] [address] 14232- 7327 Nov, [facility] [id number] [place] [address] 41368- 0894 Nov, [facility] [id number] [place] [address] 36889- 3057 Nov, [facility] [id number] [place] [address] 41295- 8568 Nov, [facility] [id number] [place] [address] 18132- 9280 Nov, [facility] [address] [address] 5100 Nov, [facility] [id number] [place] [address] 91402- 6223 Nov, Severe episode of recurrent major depressive disorder, without psychotic features F33.2 ; PTSD (post-traumatic stress disorder) F43.10 ; Panic disorder F41.0 and BMI 40.0-44.9, adult Z68.41 [facility] [address] [address] Nov, [facility] [id number] [place] [address] 99861- 8291 Nov, Essential hypertension I10 [facility] [id number] [place] [address] 49589- 6477 Nov, Severe episode of recurrent major depressive disorder, without psychotic features F33.2 [facility] [id number] [place] [address] 61433- 2580 Nov, Acute pain of left knee M25.562 [facility] [id number] [place] [address] 29633 2548 Nov, Severe episode of recurrent major depressive disorder, without psychotic features F33.2 ; PTSD (post-traumatic stress disorder) F43.10 ; Panic disorder F41.0 and BMI 40.0-44.9, adult Z68.41 [facility] [id number] [place] [address] 51224- 3524 Oct, [facility] [id number] [place] [address] 74660- 6358 Oct, [facility] [id number] [place] [address] 43099- 7279 Oct, [facility] [id number] [place] [address] 96258- 2855 Oct, [facility] [id number] [place] [address] 01154- 5912 Oct, Dorsalgia, unspecified M54.9 [facility] [id number] [place] [address] 17808- 3369 Oct, Severe episode of recurrent major depressive disorder, without psychotic features F33.2 and Generalized anxiety disorder F41.1 [facility] [id number] [place] [address] 95824- 8709 Oct, [facility] [id number] [place] [address] 27601- 9340 Oct, [facility] [id number] [place] [address] 91397- 6432 Oct, [facility] [address] [address]- 5105 Oct, [facility] [id number] [place] [address] 19247- 1772 Oct, [facility] [id number] [place] [address] 16841- 7145 Oct, [facility] [id number] [place] [address] 94166- 9732 Oct, [facility] [id number] [place] [address] 61642- 2891 Oct, [facility] [id number] [place] [address] 17665- 4056 Sep, Dorsalgia, unspecified M54.9 [facility] [id number] [place] [address] 33498- 1232 Sep, [facility] [id number] [place] [address] 56232- 5688 Sep, [facility] [id number] [place] [address] 93862- 8702 Sep, Falling R29.6 ; Essential hypertension I10 ; Chronic obstructive pulmonary disease, unspecified COPD type J44.9 and BMI 40.0-44.9, adult Z68.41 [facility] [id number] [place] [address] 62653- 6616 Sep, [facility] [address] [address]- 2777 Sep, [facility] [id number] [place] [address] 12244- 5438 Sep, [facility] [id number] [place] [address] 06938- 2543 Sep, Mild intermittent asthma without complication J45.20 [facility] [id number] [place] [address] 27706- 7834 Sep, [facility] [place] [facility] [address] [id number] [place] [address]- 4765 19 Sep, 2017 [facility] [place] [facility] [address] [id number] [place] [address]- 0001 19 Sep, 2017 [facility] [place] [facility] [address] [id number] [place] [address]- 3058 18 Sep, 2017 [facility] [place] [facility] [address] [id number] [place] [address]- 0019 18 Sep, 2017 [facility] [place] [facility] [address] [id number] [place] [address]- 6420 15 Sep, 2017 [facility] [place] [facility] [address] [id number] [place] [address]- 2698 15 Sep, 2017 Essential hypertension I10 [facility] [place] [facility] [address] [id number] [place] [address]- 8618 15 Sep, 2017 [facility] [place] [facility] [address] [id number] [place] [address]- 3336 15 Sep, 2017 [facility] [place] [facility] [address] [id number] [place] [address]- 6729 15 Sep, 2017 [facility] [place] [facility] [address] [id number] [place] [address]- 2295 14 Sep, 2017 [facility] [place] [facility] [address] [id number] [place] [address]- 1351 14 Sep, 2017 [facility] [place] [facility] [address] [id number] [place] [address]- 8095 14 Sep, 2017 [facility] [place] [facility] [address] [id number] [place] [address]- 2703 13 Sep, 2017 [facility] [place] [facility] [address] [facility] [id number] [place] [address]- 4002 13 Sep, 2017 [facility] [place] [facility] [address] [id number] [place] [address]- 9756 13 Sep, 2017 [facility] [place] [facility] [id number] [place] [address] 36715- 3432 Sep, [facility] [id number] [place] [address] 72569- 6513 Sep, Mild intermittent asthma without complication J45.20 [facility] [id number] [place] [address] 57014- 8483 August, Essential hypertension I10 [facility] [id number] [place] [address] 67883- 4949 August, BMI 40.0-44.9, adult Z68.41 ; Dorsalgia, unspecified M54.9 ; Allergic state, initial encounter T78.40XA ; Mild intermittent asthma without complication J45.20 and 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 [facility] [id number] [place] [address] 27265- 9586 August, [facility] [id number] [place] [address] 06432- 2963 August, [facility] [id number] [place] [address] 27443- 5302 August, [facility] [id number] [place] [address] 94061- 3234 August, Reactive depression F32.9 [facility] [id number] [place] [address] 59613- 3503 August, [facility] [id number] [place] [address] 85670- 5382 August, [facility] [id number] [place] [address] 79988- 0499 August, [facility] [id number] [place] [address] 55304- 1028 August, [facility] [id number] [place] [address] 08220- 2395 August, [facility] [id number] [place] [address] 62059- 3710 August, [facility] [address] [address]- 0496 August, [facility] [address] [address]- 7497 August, Muscle spasms of both lower extremities M62.838 ; Essential hypertension I10 and Reactive depression F32.9 [facility] [id number] [place] [address] 17247- 0186 August, [facility] [address] [address]- 9836 Jul, [facility] [id number] [place] [address] 62130- 3458 Jul, [facility] [id number] [address]- 3558 Jul, [facility] [id number] [place] [address] 57241- 6679 Jul, [facility] [address] [address]- 3351 Jul, [facility] [address] [address]- 5839 Jul, [facility] [address] [address]- 5139 Jul, [facility] [address] [address]- 2677 Jul, [facility] [id number] [address]- 5851 Jul, Essential hypertension I10 ; Other chronic pain G89.29 ; Dorsalgia, unspecified M54.9 ; Reactive depression F32.9 ; Mild intermittent asthma without complication J45.20 ; Allergic state, initial encounter T78.40XA and Muscle spasms of both lower extremities M62.838 IMMUNIZATIONS No Known Immunizations SOCIAL HISTORY Never Assessed REASON FOR VISIT Handicap papers, -Jay HURTADO , PT notes the Baclofen is not working, would like to discuss some medications -Jay HURTADO , PT mentions he had an MRI done 3 -4 weeks ago ordered by Dr. Sharpe, Also mentions he started doing epidural shots in his back and they plan to do some in the neck in the future -Jay HURTADO , PT sees Dr. Tanner 01/08/18 to discuss his balance and get an evalutation. , PT reports his right side started becoming numb in the last month on his right hand -Jay HURTADO PLAN OF CARE Activity Details Follow Up 4 Weeks Reason: VITAL SIGNS Height 66 in 2017-12-14 Weight 261.4 lbs 2017-12-14 Temperature 98.1 degrees Fahrenheit 2017-12-14 Heart Rate 69 bpm 2017-12-14 Respiratory Rate 20 2017-12-14 Oximetry 97 % 2017-12-14 BMI 42.19 kg/m2 2017-12-14 Blood pressure systolic 132 mmHg 2017-12-14 Blood pressure diastolic 80 mmHg 2017-12-14 MEDICATIONS Medication Instructions Dosage Frequency Start Date End Date Duration Status Soma 350 MG Orally 3 times a day 1 tablet as needed 8h Nov, Active Zoloft 200 mg Orally Once a day 2 tablet 24h Active Gabapentin 300 MG Orally twice a day 1 capsule 12h Active Breo Ellipta 100-25 MCG/INH Inhalation Once a day 1 puff 24h Sep, Active Xanax XR 0.5 MG Orally Once a day 1 tablet in the morning 24h Active Allergy 12 MG Orally every 12 hrs 1 tablet as needed 12h Active Atenolol 50 MG Orally Once [...] as needed 6h 05 Sep, 2017 Active RESULTS No Results PROCEDURES No Known [...]
--- OUTSIDE RECORDS SUMMARY | 2018-04-06 08:04 | XMS REPORT ---
Author Author RITIKA OLIVER [facility] Address [address] [place] [address] Care Team Providers Care Transfer Knitter Name Role Phone RITIKA OLIVER Unavailable PROBLEMS Type Condition ICD9-CM Code LYT09-SV Code Onset Dates Condition Status SNOMED Code Problem Muscle spasms of both lower extremities M62.838 Active 321182753 Problem Severe episode of recurrent major depressive disorder, without psychotic features F33.2 Active 03370099 Problem Reactive depression F32.9 Active 31369917 Problem Allergic state, initial encounter T78.40XA Active 897974592 Problem Essential hypertension I10 Active 51939747 Problem Dorsalgia, unspecified M54.9 Active 866374737 Problem Other chronic pain G89.29 Active 40524524 Problem Moderate persistent asthma without complication J45.40 Active 899737551 Problem Cervical disc disease with myelopathy M50.00 Active 33799502 Problem Falling R29.6 Active 409036074 Problem Generalized anxiety disorder F41.1 Active 21600929 Problem Panic disorder F41.0 Active 595261473 Problem PTSD (post-traumatic stress disorder) F43.10 Active 62652394 ALLERGIES No Information ENCOUNTERS Encounter Location Date Diagnosis [facility] [id number] [place] [address] 86866- 8196 Jan, [facility] [address] [place] [address] 17242- 2417 Jan, [facility] [address] [place] [address] 14696- 6335 Dec, [facility] [address] [place] [address] 24308- 4551 Dec, Encounter for immunization Z23 [facility] [address] [place] [address] 46320- 1656 Dec, [facility] [address] [address] 24 Dec, 2017 Severe episode of recurrent major depressive disorder, without psychotic features F33.2 ; PTSD (post-traumatic stress disorder) F43.10 ; Panic disorder F41.0 and BMI 40.0-44.9, adult Z68.41 [facility] [id number] [place] [address] 83371- 8780 23 Dec, 2017 [facility] [id number] [place] [address] 64581- 2209 Dec, [facility] [id number] [place] [address] 47562- 4741 Dec, Essential hypertension I10 [facility] [id number] [place] [address] 90801- 8306 14 Dec, 2017 [facility] [id number] [place] [address] 13506- 2496 Dec, [facility] [id number] [place] [address] 05102- 4881 Dec, 2017 BMI 40.0-44.9, adult Z68.41 ; Severe episode of recurrent major depressive disorder, without psychotic features F33.2 ; PTSD (post- traumatic stress disorder) F43.10 and Panic disorder F41.0 [facility] [address] [address] 3611 Dec, 2017 [facility] [id number] [place] [address] 82449- 6862 Dec, 2017 [facility] [address] [place] [address] 47110- 4485 Dec, 2017 Essential hypertension I10 [facility] [id number] [place] [address] 99353- 6482 04 Dec, 2017 Severe episode of recurrent major depressive disorder, without psychotic features F33.2 [facility] [id number] [place] [address] 10187- 7635 Dec, Severe episode of recurrent major depressive disorder, without psychotic features F33.2 and Generalized anxiety disorder F41.1 [facility] [id number] [place] [address] 79881- 6338 Nov, Cervical disc disease with myelopathy M50.00 [facility] [id number] [place] [address] 69502- 8524 Nov, Cervical disc disease with myelopathy M50.00 ; Moderate persistent asthma without complication J45.40 and BMI 40.0-44.9, adult Z68.41 [facility] [id number] [place] [address] 83960- 2885 Nov, [facility] [id number] [place] [address] 12268- 7566 Nov, [facility] [id number] [place] [address] 08750- 1059 Nov, [facility] [id number] [place] [address] 62502- 1860 Nov, [facility] [id number] [place] [address] 21546- 6738 Nov, [facility] [id number] [place] [address] 81536- 9108 Nov, [facility] [id number] [place] [address] 07968- 1895 Nov, [facility] [id number] [place] [address] 20731- 9653 Nov, [facility] [id number] [place] [address] 22209- 3147 Nov, [facility] [id number] [place] [address] 51989- 4933 Nov, Severe episode of recurrent major depressive disorder, without psychotic features F33.2 ; PTSD (post-traumatic stress disorder) F43.10 ; Panic disorder F41.0 and BMI 40.0-44.9, adult Z68.41 [facility] [address] [address] 7391 Nov, [facility] [id number] [place] [address] 47806- 5856 Nov, Essential hypertension I10 [facility] [id number] [place] [address] 20739- 7088 Nov, Severe episode of recurrent major depressive disorder, without psychotic features F33.2 [facility] [id number] [place] [address] 12575- 1926 Nov, Acute pain of left knee M25.562 [facility] [id number] [place] [address] 14107- 8664 Nov, Severe episode of recurrent major depressive disorder, without psychotic features F33.2 ; PTSD (post-traumatic stress disorder) F43.10 ; Panic disorder F41.0 and BMI 40.0-44.9, adult Z68.41 [address] [id number] [place] [address] 70079- 4392 Oct, [facility] [id number] [place] [address] 67665- 3361 Oct, [facility] [id number] [place] [address] 07295- 5470 Oct, [facility] [id number] [place] [address] 63178- 2592 Oct, [facility] [id number] [place] [address] 85773- 6144 Oct, Dorsalgia, unspecified M54.9 [facility] [id number] [place] [address] 53055- 4267 Oct, Severe episode of recurrent major depressive disorder, without psychotic features F33.2 and Generalized anxiety disorder F41.1 [facility] [id number] [place] [address] 42800- 4761 Oct, [facility] [address] [address]- 6645 Oct, [facility] [id number] [place] [address], [place] [address]- 3633 Oct, [facility] [id number] [place] [address], [place] [address]- 2890 Oct, [facility] [id number] [place] [address], [place] [address]- 4763 Oct, [facility] [id number] [place] [address], [place] [address]- 9586 Oct, [facility] [id number] [place] [address], [place] [address]- 7047 Oct, [facility] [id number] [place] [address], [place] [address]- 1627 Oct, [facility] [id number] [place] [address] 38001- 0519 Sep, Dorsalgia, unspecified M54.9 [facility] [id number] [place] [address] 40150- 0990 Sep, [facility] [id number] [place] [address] 23046- 6421 Sep, [facility] [id number] [place] [address] 30800- 6637 Sep, Falling R29.6 ; Essential hypertension I10 ; Chronic obstructive pulmonary disease, unspecified COPD type J44.9 and BMI 40.0-44.9, adult Z68.41 [facility] [address] [address]- 2887 Sep, [facility] [id number] [place] [address] 33590- 0233 Sep, [facility] [id number] [place] [address] 55300- 5183 Sep, [facility] [address], [place] [address]- 9181 21 Sep, 2017 Mild intermittent asthma without complication J45.20 [facility] [address] [place] [address] 72788- 8130 19 Sep, 2017 [facility] [id number] [place] [address] 57667- 5935 19 Sep, 2017 [facility] [id number] [place] [address] 75919- 0774 19 Sep, 2017 [facility] [id number] [place] [address] 85993- 5515 18 Sep, 2017 [facility] [id number] [place] [address] 47307- 4147 18 Sep, 2017 [facility] [id number] [place] [address] 09517- 3718 15 Sep, 2017 [facility] [id number] [place] [address] 69502- 4217 15 Sep, 2017 Essential hypertension I10 [facility] [id number] [place] [address] 01797- 6706 15 Sep, 2017 [facility] [address] [place] [address] 42304- 3508 15 Sep, 2017 [facility] [address] [place] [address] 66760- 5244 15 Sep, 2017 [facility] [address] [address]- 1900 14 Sep, 2017 [facility] [id number] [place] [address] 22552- 9983 14 Sep, 2017 [facility] [address], [place] [address]- 4222 14 Sep, 2017 [facility] [address] [place] [address] 40779- 6352 13 Sep, 2017 [facility] [address], [place] [address]- 7932 Sep, [facility] [id number] [place] [address] 65848- 7787 Sep, [facility] [address], [place] [address]- 0506 Sep, [facility] [id number] [place] [address] 63265- 8257 Sep, Mild intermittent asthma without complication J45.20 [facility] [id number] [place] [address] 68977- 9091 August, Essential hypertension I10 [facility] [id number] [place] [address] 70860- 5731 August, BMI 40.0-44.9, adult Z68.41 ; Dorsalgia, unspecified M54.9 ; Allergic state, initial encounter T78.40XA ; Mild intermittent asthma without complication J45.20 and 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 [facility] [address] [address]- 2001 August, [facility] [id number] [place] [address] 42914- 1017 August, [facility] [address], [place] [address]- 8002 August, [facility] [address] [place] [address] 05933- 9118 August, Reactive depression F32.9 [facility] [address], [place] [address]- 1173 August, [facility] [id number] [place] [address] 42910- 3055 August, [facility] [address], [place] [address]- 7227 August, [facility] [address] [address]- 5091 August, [facility] [id number] [place] [address] 69588- 4840 August, [facility] [id number] [place] [address] 41147- 9265 August, [facility] [id number] [place] [address] 62071- 7857 August, [facility] [id number] [place] [address] 45506- 8208 August, Muscle spasms of both lower extremities M62.838 ; Essential hypertension I10 and Reactive depression F32.9 [facility] [id number] [place] [address] 81401- 9517 August, [facility] [id number] [place] [address] 59776- 4299 Jul, [facility] [id number] [place] [address] 93240- 3002 30 Jul, 2017 [facility] [id number] [place] [address] 56388- 6233 28 Jul, 2017 [facility] [id number] [place] [address] 16537- 1299 Jul, [facility] [address], [place] [address]- 2667 Jul, [facility] [address] [place] [address] 65363- 2406 Jul, [facility] [address] [place] [address] 00076- 8806 Jul, [facility] [id number] [place] [address] 68798- 7074 Jul, [facility] [address], [place] [address]- 5465 Jul, Essential hypertension I10 ; Other chronic [...] Psychotherapy, patient &/family, 45 minutes, established patient Dec 21, 2017 INSTRUCTIONS MEDICATIONS ADMINISTERED No Known Medications [...]
--- OUTSIDE RECORDS SUMMARY | 2018-04-06 08:04 | XMS REPORT ---
Author Author ROSALINA GRAHAM Organization [facility] Address [address] [place] [address] Care Team Providers Care Retail Associate Manager Bilingual Name Role Phone ROSALINA GRAHAM Unavailable PROBLEMS Type Condition ICD9-CM Code SPP51-GO Code Onset Dates Condition Status SNOMED Code Problem Muscle spasms of both lower extremities M62.838 Active 019819194 Problem Severe episode of recurrent major depressive disorder, without psychotic features F33.2 Active 69976000 Problem Reactive depression F32.9 Active 82816761 Problem Allergic state, initial encounter T78.40XA Active 128848873 Problem Essential hypertension I10 Active 13778070 Problem Dorsalgia, unspecified M54.9 Active 263291682 Problem Other chronic pain G89.29 Active 47138223 Problem Moderate persistent asthma without complication J45.40 Active 563267770 Problem Cervical disc disease with myelopathy M50.00 Active 67403630 Problem Falling R29.6 Active 361241670 Problem Generalized anxiety disorder F41.1 Active 40161021 Problem Panic disorder F41.0 Active 005381583 Problem PTSD (post-traumatic stress disorder) F43.10 Active 41258939 ALLERGIES No Information ENCOUNTERS Encounter Location Date Diagnosis [facility] [id number] [place] [address] 87563- 5096 Jan, [facility] [id number] [place] [address] 25621- 0770 Jan, [facility] [id number] [place] [address] 96680- 9747 Dec, [facility] [id number] [place] [address] 09581- 9212 Dec, Encounter for immunization Z23 [facility] [id number] [place] [address] 64056- 9205 Dec, [facility] [address] [address] 6856 24 Dec, 2017 Severe episode of recurrent major depressive disorder, without psychotic features F33.2 ; PTSD (post-traumatic stress disorder) F43.10 ; Panic disorder F41.0 and BMI 40.0-44.9, adult Z68.41 [facility] [id number] [place] [address] 48687- 6165 23 Dec, 2017 [facility] [id number] [place] [address] 42849- 0021 Dec, [facility] [id number] [place] [address] 48503- 3314 Dec, Essential hypertension I10 [facility] [id number] [place] [address] 82278- 5038 14 Dec, 2017 [facility] [id number] [place] [address] 66386- 8680 Dec, [facility] [id number] [place] [address] 50289- 9592 Dec, 2017 BMI 40.0-44.9, adult Z68.41 ; Severe episode of recurrent major depressive disorder, without psychotic features F33.2 ; PTSD (post- traumatic stress disorder) F43.10 and Panic disorder F41.0 [facility] [address] [address] 7563 Sep, 2017 [facility] [id number] [place] [address] 90249- 2544 Dec, 2017 [facility] [address] [address] 2543 Dec, 2017 Essential hypertension I10 [facility] [id number] [place] [address] 40148- 3366 Dec, 2017 Severe episode of recurrent major depressive disorder, without psychotic features F33.2 [facility] [id number] [place] [address] 25975- 3468 Dec, Severe episode of recurrent major depressive disorder, without psychotic features F33.2 and Generalized anxiety disorder F41.1 [facility] [id number] [place] [address] 13421- 5068 Nov, Cervical disc disease with myelopathy M50.00 [facility] [id number] [place] [address] 04624- 5529 Nov, Cervical disc disease with myelopathy M50.00 ; Moderate persistent asthma without complication J45.40 and BMI 40.0-44.9, adult Z68.41 [facility] [address] [address] 5512 Nov, [facility] [id number] [place] [address] 87333- 5919 Nov, [facility] [id number] [place] [address] 50573- 3472 Nov, [facility] [id number] [place] [address] 21731- 5575 Nov, [facility] [id number] [place] [address] 53747- 9464 Nov, [facility] [id number] [place] [address] 16050- 5026 Nov, [facility] [id number] [place] [address] 13131- 3929 Nov, [facility] [id number] [place] [address] 28630- 7232 Nov, [facility] [id number] [place] [address] 54595- 9072 Nov, [facility] [id number] [place] [address] 15126- 6442 Nov, Severe episode of recurrent major depressive disorder, without psychotic features F33.2 ; PTSD (post-traumatic stress disorder) F43.10 ; Panic disorder F41.0 and BMI 40.0-44.9, adult Z68.41 [facility] [id number] [place] [address] 12299- 3706 Nov, [facility] [id number] [place] [address] 75830- 7326 Nov, Essential hypertension I10 [facility] [id number] [place] [address] 80198- 1228 Nov, Severe episode of recurrent major depressive disorder, without psychotic features F33.2 [facility] [id number] [place] [address] 34547- 0821 Nov, Acute pain of left knee M25.562 [facility] [id number] [place] [address] 68040- 7841 Nov, Severe episode of recurrent major depressive disorder, without psychotic features F33.2 ; PTSD (post-traumatic stress disorder) F43.10 ; Panic disorder F41.0 and BMI 40.0-44.9, adult Z68.41 [facility] [id number] [place] [address] 19908- 9951 Oct, [facility] [id number] [place] [address] 63587- 9846 Oct, [facility] [id number] [place] [address] 52835- 6913 Oct, [facility] [id number] [place] [address] 65687- 4395 Oct, [facility] [id number] [place] [address] 15545- 9218 Oct, Dorsalgia, unspecified M54.9 [facility] [id number] [place] [address] 58716- 1394 Oct, Severe episode of recurrent major depressive disorder, without psychotic features F33.2 and Generalized anxiety disorder F41.1 [facility] [id number] [place] [address] 19552- 8157 Oct, [facility] [id number] [place] [address]- 0439 Oct, [facility] [id number] [place] [address]- 4731 Oct, [facility] [id number] [place] [address]- 0218 Oct, [facility] [id number] [place] [address], [place] [address]- 0272 Oct, [facility] [id number] [place] [address], [place] [address]- 1202 Oct, [facility] [id number] [place] [address], [place] [address]- 3572 Oct, [facility] [id number] [place] [address]- 3777 Oct, [facility] [id number] [place] [address] 38655- 4699 Sep, Dorsalgia, unspecified M54.9 [facility] [address], [place] [address]- 7880 Sep, [facility] [address], [place] [address]- 7305 Sep, [facility] [address], [place] [address]- 2728 Sep, Falling R29.6 ; Essential hypertension I10 ; Chronic obstructive pulmonary disease, unspecified COPD type J44.9 and BMI 40.0-44.9, adult Z68.41 [facility] [address], [place] [address]- 3659 Sep, [facility] [address], [place] [address]- 1158 Sep, [facility] [address], [place] [address]- 8593 Sep, [facility] [address], [place] [address]- 1837 21 Sep, 2017 Mild intermittent asthma without complication J45.20 [facility] [id number] [place] [address] 84499- 0928 19 Sep, 2017 [facility] [id number] [place] [address] 02001- 1739 19 Sep, 2017 [facility] [id number] [place] [address] 88342- 0415 19 Sep, 2017 [facility] [id number] [place] [address], [place] [address]- 8584 18 Sep, 2017 [facility] [id number] [place] [address] 83718- 1742 18 Sep, 2017 [facility] [id number] [place] [address] 04879- 8705 15 Sep, 2017 [facility] [id number] [place] [address] 55678- 3742 15 Sep, 2017 Essential hypertension I10 [facility] [id number] [place] [address] 35302- 6082 15 Sep, 2017 [facility] [address], [place] [address]- 0143 15 Sep, 2017 [facility] [address], [place] [address]- 4639 15 Sep, 2017 [facility] [address], [place] [address]- 8085 14 Sep, 2017 [facility] [id number] [place] [address] 86976- 5286 14 Sep, 2017 [facility] [address], [place] [address]- 3745 14 Sep, 2017 [facility] [address], [place] [address]- 7711 13 Sep, 2017 [facility] [id number] [address]- 9628 Sep, [facility] [id number] [place] [address] 87829- 8654 Sep, [facility] [id number] [place] [address] 94643- 2534 Sep, [facility] [id number] [place] [address] 87527- 3927 Sep, Mild intermittent asthma without complication J45.20 [facility] [id number] [place] [address] 88241- 1413 August, Essential hypertension I10 [facility] [id number] [place] [address] 14788- 8068 August, BMI 40.0-44.9, adult Z68.41 ; Dorsalgia, unspecified M54.9 ; Allergic state, initial encounter T78.40XA ; Mild intermittent asthma without complication J45.20 and 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 [facility] [id number] [place] [address] 19623- 6179 August, [facility] [id number] [place] [address] 19472- 0785 August, [facility] [id number] [place] [address] 67860- 8085 August, [facility] [id number] [place] [address] 30216- 6867 August, Reactive depression F32.9 [facility] [id number] [place] [address] 65265- 4429 August, [facility] [id number] [place] [address] 79604- 8994 August, [facility] [id number] [place] [address] 18149- 7327 August, [facility] [id number] [place] [address] 05366- 4213 August, [facility] [id number] [place] [address] 33105- 7627 August, [facility] [id number] [place] [address] 26134- 0544 August, [facility] [id number] [place] [address] 82807- 2511 August, [facility] [id number] [place] [address] 10996- 0653 August, Muscle spasms of both lower extremities M62.838 ; Essential hypertension I10 and Reactive depression F32.9 [facility] [id number] [place] [address] 03219- 5886 August, [facility] [id number] [place] [address] 75749- 5394 Jul, [facility] [id number] [place] [address] 08402- 6231 Jul, [facility] [id number] [place] [address] 18981- 0718 Jul, [facility] [id number] [place] [address] 88303- 8665 Jul, [facility] [id number] [place] [address] 69126- 1230 Jul, [facility] [id number] [place] [address] 36842- 1439 Jul, [facility] [id number] [place] [address] 05758- 7232 Jul, [facility] [id number] [place] [address] 10796- 9322 Jul, [facility] [address], [place] [address]- 3730 Jul, Essential hypertension I10 ; Other chronic [...] 1 tablet in the morning 24h Active RESULTS No Results PROCEDURES No [...]
--- OUTSIDE RECORDS SUMMARY | 2018-04-06 08:04 | XMS REPORT ---
Author Author ROSALINA GRAHAM Organization [facility] Address [address] [place] [address] Care Team Providers Care Drawbridge Operator Name Role Phone ROSALINA GRAHAM Unavailable PROBLEMS Type Condition ICD9-CM Code NIR18-HO Code Onset Dates Condition Status SNOMED Code Problem Muscle spasms of both lower extremities M62.838 Active 578071263 Problem Severe episode of recurrent major depressive disorder, without psychotic features F33.2 Active 92864094 Problem Reactive depression F32.9 Active 62159065 Problem Allergic state, initial encounter T78.40XA Active 542390306 Problem Essential hypertension I10 Active 39207514 Problem Dorsalgia, unspecified M54.9 Active 500205486 Problem Other chronic pain G89.29 Active 29202591 Problem Moderate persistent asthma without complication J45.40 Active 392453003 Problem Cervical disc disease with myelopathy M50.00 Active 58479547 Problem Falling R29.6 Active 757404654 Problem Generalized anxiety disorder F41.1 Active 56318223 Problem Panic disorder F41.0 Active 334346113 Problem PTSD (post-traumatic stress disorder) F43.10 Active 48465911 ALLERGIES No Information ENCOUNTERS Encounter Location Date Diagnosis [facility] [id number] [place] [address] 21339- 6311 Jan, [facility] [id number] [place] [address] 24961- 5221 Jan, [facility] [id number] [place] [address] 13573- 0199 Dec, [facility] [id number] [place] [address] 45219- 8000 Dec, Encounter for immunization Z23 [facility] [id number] [place] [address] 95903- 5941 Dec, [facility] [id number] [address] 24 Dec, 2017 Severe episode of recurrent major depressive disorder, without psychotic features F33.2 ; PTSD (post-traumatic stress disorder) F43.10 ; Panic disorder F41.0 and BMI 40.0-44.9, adult Z68.41 [facility] [id number] [place] [address] 18738- 7837 23 Dec, 2017 [facility] [id number] [place] [address] 03354- 5931 Dec, [facility] [id number] [place] [address] 76037- 0638 Dec, Essential hypertension I10 [facility] [id number] [place] [address] 02976- 0556 14 Dec, 2017 [facility] [id number] [place] [address] 62828- 7710 Dec, [facility] [id number] [place] [address] 22540- 1241 Dec, 2017 BMI 40.0-44.9, adult Z68.41 ; Severe episode of recurrent major depressive disorder, without psychotic features F33.2 ; PTSD (post- traumatic stress disorder) F43.10 and Panic disorder F41.0 [facility] [address] [address]654 Sep, 2017 [facility] [id number] [place] [address] 82191- 2541 Dec, 2017 [facility] [address] [address] 2542 Dec, 2017 Essential hypertension I10 [facility] [id number] [place] [address] 95504- 8142 Dec, 2017 Severe episode of recurrent major depressive disorder, without psychotic features F33.2 [facility] [id number] [place] [address] 61438- 5092 Dec, Severe episode of recurrent major depressive disorder, without psychotic features F33.2 and Generalized anxiety disorder F41.1 [facility] [id number] [place] [address] 78099- 6160 Nov, Cervical disc disease with myelopathy M50.00 [facility] [id number] [place] [address] 13600- 5033 Nov, Cervical disc disease with myelopathy M50.00 ; Moderate persistent asthma without complication J45.40 and BMI 40.0-44.9, adult Z68.41 [facility] [address] [address] 6903 Nov, [facility] [id number] [place] [address] 39255- 2695 Nov, [facility] [id number] [place] [address] 34156- 9025 Nov, [facility] [id number] [place] [address] 39103- 9014 Nov, [facility] [id number] [place] [address] 00126- 5833 Nov, [facility] [id number] [place] [address] 04688- 3582 Nov, [facility] [id number] [place] [address] 24289- 6790 Nov, [facility] [id number] [place] [address] 31233- 2518 Nov, [facility] [id number] [place] [address] 03451- 5350 Nov, [facility] [id number] [place] [address] 42468- 0855 Nov, Severe episode of recurrent major depressive disorder, without psychotic features F33.2 ; PTSD (post-traumatic stress disorder) F43.10 ; Panic disorder F41.0 and BMI 40.0-44.9, adult Z68.41 [facility] [id number] [place] [address] 42067- 1053 Nov, [facility] [id number] [place] [address] 27624- 3976 Nov, Essential hypertension I10 [facility] [id number] [place] [address] 79195- 9048 Nov, Severe episode of recurrent major depressive disorder, without psychotic features F33.2 [facility] [id number] [place] [address] 74122- 6901 Nov, Acute pain of left knee M25.562 [facility] [id number] [place] [address] 22463- 6237 Nov, Severe episode of recurrent major depressive disorder, without psychotic features F33.2 ; PTSD (post-traumatic stress disorder) F43.10 ; Panic disorder F41.0 and BMI 40.0-44.9, adult Z68.41 [facility] [id number] [place] [address] 29596- 3985 Oct, [facility] [id number] [place] [address] 22980- 5306 Oct, [facility] [id number] [place] [address] 67103- 2658 Oct, [facility] [id number] [place] [address] 50312- 3318 Oct, [facility] [id number] [place] [address] 61087- 7763 Oct, Dorsalgia, unspecified M54.9 [facility] [id number] [place] [address] 49848- 9177 Oct, Severe episode of recurrent major depressive disorder, without psychotic features F33.2 and Generalized anxiety disorder F41.1 [facility] [id number] [place] [address] 40080- 4770 Oct, [facility] [id number] [place] [address]- 9460 Oct, [facility] [id number] [place] [address]- 9829 Oct, [facility] [id number] [place] [address]- 6394 Oct, [facility] [id number] [place] [address], [place] [address]- 2910 Oct, [facility] [id number] [place] [address], [place] [address]- 0702 Oct, [facility] [id number] [place] [address], [place] [address]- 6296 Oct, [facility] [id number] [place] [address]- 1929 Oct, [facility] [id number] [place] [address] 75665- 6662 Sep, Dorsalgia, unspecified M54.9 [facility] [id number] [address]- 0865 Sep, [facility] [id number] [address]- 9100 Sep, [facility] [id number] [address]- 4857 Sep, Falling R29.6 ; Essential hypertension I10 ; Chronic obstructive pulmonary disease, unspecified COPD type J44.9 and BMI 40.0-44.9, adult Z68.41 [facility] [id number] [address]- 3742 Sep, [facility] [id number] [address]- 3721 Sep, [facility] [id number] [address]- 9378 Sep, [facility] [id number] [address]- 0718 21 Sep, 2017 Mild intermittent asthma without complication J45.20 [facility] [id number] [place] [address] 00144- 0259 19 Sep, 2017 [facility] [id number] [place] [address] 63516- 0536 19 Sep, 2017 [facility] [id number] [place] [address] 31744- 7295 19 Sep, 2017 [facility] [id number] [place] [address], [place] [address]- 9702 18 Sep, 2017 [facility] [id number] [place] [address] 17600- 6920 18 Sep, 2017 [facility] [id number] [place] [address] 16684- 3706 15 Sep, 2017 [facility] [id number] [place] [address] 57947- 7360 15 Sep, 2017 Essential hypertension I10 [facility] [id number] [place] [address] 86042- 0407 15 Sep, 2017 [facility] [id number] [address]- 4715 15 Sep, 2017 [facility] [address] [address]- 9433 15 Sep, 2017 [facility] [id number] [address]- 3355 14 Sep, 2017 [facility] [id number] [place] [address] 33069- 5288 14 Sep, 2017 [facility] [address] [address]- 8289 14 Sep, 2017 [facility] [address] [address]- 0182 13 Sep, 2017 [facility] [id number] [address]- 1663 Sep, [facility] [id number] [place] [address] 72578- 3658 Sep, [facility] [id number] [place] [address] 44906- 0504 Sep, [facility] [id number] [place] [address] 37882- 7656 Sep, Mild intermittent asthma without complication J45.20 [facility] [id number] [place] [address] 56515- 6626 August, Essential hypertension I10 [facility] [id number] [place] [address] 26531- 2558 August, BMI 40.0-44.9, adult Z68.41 ; Dorsalgia, unspecified M54.9 ; Allergic state, initial encounter T78.40XA ; Mild intermittent asthma without complication J45.20 and 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 [facility] [id number] [place] [address] 46118- 7969 August, [facility] [id number] [place] [address] 52490- 1280 August, [facility] [id number] [place] [address] 11838- 9074 August, [facility] [id number] [place] [address] 12502- 9836 August, Reactive depression F32.9 [facility] [id number] [place] [address] 39906- 2133 August, [facility] [id number] [place] [address] 59675- 7500 August, [facility] [id number] [place] [address] 08472- 1951 August, [facility] [id number] [place] [address] 04255- 7076 August, [facility] [id number] [place] [address] 78551- 7390 August, [facility] [id number] [place] [address] 90696- 5746 August, [facility] [id number] [place] [address] 16005- 2566 August, [facility] [id number] [place] [address] 36555- 7115 August, Muscle spasms of both lower extremities M62.838 ; Essential hypertension I10 and Reactive depression F32.9 [facility] [id number] [place] [address] 15832- 3212 August, [facility] [id number] [place] [address] 50911- 1070 Jul, [facility] [id number] [place] [address] 34455- 2157 Jul, [facility] [id number] [place] [address] 23790- 4640 Jul, [facility] [id number] [place] [address] 47843- 9012 Jul, [facility] [id number] [place] [address] 23902- 2684 Jul, [facility] [id number] [place] [address] 96442- 4806 Jul, [facility] [id number] [place] [address] 80229- 6283 Jul, [facility] [id number] [place] [address] 65904- 0925 Jul, [facility] [address] [address]- 3390 Jul, Essential hypertension I10 ; Other chronic pain G89.29 ; Dorsalgia, unspecified M54.9 ; Reactive depression F32.9 ; Mild intermittent asthma without complication J45.20 ; Allergic state, initial encounter T78.40XA and Muscle spasms of both lower extremities M62.838 IMMUNIZATIONS No Known Immunizations SOCIAL HISTORY Never Assessed REASON FOR VISIT Blood pressure meds / Massage therapy PLAN OF CARE VITAL SIGNS MEDICATIONS Medication Instructions Dosage Frequency Start Date End Date Duration Status Losartan Potassium 100 mg Orally Once a day 1 tablet 24h 30 days Active Atenolol 50 mg Orally Once a day 1 tablet 24h 90 days Active RESULTS No Results PROCEDURES No [...]
[2018-04-06] MEDS ORDERED: MEPERIDINE (DEMEROL) INJ 50 MG/ML IVP ONE (08:30)
[2018-04-06] MEDS ORDERED: ONDANSETRON 4 MG/2 ML (SDV) Z0FRAN IVP PRN (08:30)
[2018-04-06] MEDS ORDERED: morphine INJ 10 MG/ML 1ML (SYR OR VIAL) IVP ONE (08:30)
[2018-04-06] MEDS ORDERED: diphenhydrAMINE 50 MG/ML INJ (BENADRYL) ONE (09:10)
[2018-04-06] MEDS ORDERED: diphenhydrAMINE 50 MG/ML INJ (BENADRYL) IVP PRN (09:12)
[2018-04-06] MEDS: diphenhydrAMINE 50 MG/ML INJ (BENADRYL) IVP ONE ×2 (09:12→09:17)
[2018-04-06 09:35] VITALS: BP 119/70
[2018-04-06 10:05] VITALS: BP 117/79
[2018-04-06] MEDS ORDERED: HYDR-3875 PO (10:07)
[2018-04-06] MEDS ORDERED: diphenhydrAMINE 50 MG/ML INJ (BENADRYL) IVP ONE (10:30)
[2018-04-06] MEDS ORDERED: HYDROcodone/APAP 7.5 MG/325 MG (LORTAB, LORCET PLUS) TABLET PO ONE (10:30)
[2018-04-06 10:35] VITALS: BP 101/80
--- NOTE | 2018-04-06 11:21 | Physical Therapy Ortho Eval ---
PT Orthopedic Evaluation Type of Surgery Knee Scope left knee WBAT Prior Level of Function Locomotion (Upon Admit): Straight Cane Subjective Subjective Patient in bed pre tx, agrees to PT, has 5/10 pain in left knee. Patient states that this is his 5th knee scope and he is very familiar with the process , is familiar with his home exercises but is willing to walk in the hallway. Entry Into Home: Stairs With Railing Steps Into Home: 4 Motor Control Motor Control: Motor Control WNL ROM ROM: WFL Transfer Transfers (B, C, W/C) (FIM): 5 Gait Gait Assistive Device: FWW Left Lower Extremity: Left Weight Bearing Status LLE: Weight Bearing/Tolerated Gait (FIM): 5 Distance: 150' Gait Level of Assist: 5 Summary/Comments Patient also went up and down 1 step using a rolling walker with SBA and cues for foot placement. Treatment Rendered Treatment: Gait Train, Step Train Assessment/Goals Goal Time Frame: 1 Visit Safe Ambulation: Yes Plan Treatment Plan: Discharge PT/Family Agrees to Plan: Yes Time Time In: 1105 Time Out: 1115 Total Billed Treatment Time: 10 Billed Treatment Time 1 visit EVL 10' Yes PT/OT Therapy GCodes Therapy Functional Limitation: Physical Therapy Test(s)/Tool used to determine: Level of Assistance Scale Functional Limitation-Current Charge Code: MOBCUR Modifier: CI Functional Limitation-Goal Charge Code: MOBGOAL Modifier: CI Functional Limitation-D/C Charge Codes: MOBDC Modifier: CI PAWEL SNOWDEN PT Apr 06, 2018 11:21
[2018-04-06] MEDS ORDERED: diphenhydrAMINE 50 MG/ML INJ (BENADRYL) IM ONE (13:00)
--- NOTE | 2018-04-06 14:04 | Anesthesia-General Post-Op ---
General Patient Condition Mental Status/LOC: Same as Preop Cardiovascular: Satisfactory Nausea/Vomiting: Absent Respiratory: Satisfactory Pain: Controlled Complications: Present Post Op Complications Complications None Follow Up Care/Instructions Patient Instructions None needed. Anesthesia/Patient Condition Patient Condition Patient in pacu and began complaining about itching, long after 2nd dose of Morphine given. Orders given by Dr. Armstrong for 12.5mg Benadryl, repeat x1 dose. Both doses given prior to taking patient to SDC. Once in SDC, patient very apprehensive, sitting straight up in bed, and itching his skin. He states, "my skin is just crawling." No hives or redness noted on his body. Unable to give Zantac because it/s unavailable. Another 25mg Benadryl given IV. After 15 minutes, the patient is more irritable and c/o that itching is getting worse. 12.5mg Benadryl IV ordered by Dr. Armstrong, to be repeated in 5 minutes if needed. After what was a total of 62.5 mg of Benadryl total (pacu and SDC), the patient started feeling some relief. He was eventually discharged to home without other complaints. BRISA DURHAM CRNA Apr 06, 2018 14:04
--- NOTE | 2018-04-06 15:49 | OPERATIVE REPORT ---
DATE OF SERVICE: 04/06/2018 PREOPERATIVE DIAGNOSES: 1. Left knee medial meniscus tear. 2. Left knee chondromalacia of the medial femoral condyle. 3. 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 POSTOPERATIVE DIAGNOSES: 1. Left knee medial meniscus tear. 2. Left knee chondromalacia of the medial femoral condyle. 3. 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 4. Left knee chondromalacia of the patella. PROCEDURES PERFORMED: 1. Left knee arthroscopic partial medial meniscectomy. 2. Left knee arthroscopic chondroplasty of the medial femoral condyle. 3. Left knee arthroscopic chondroplasty of the medial tibial plateau. 4. Left knee arthroscopic chondroplasty of the patella. SURGEON: Anibal Gómez MD. MACHINE SANDER: SUKH Barroso, who assisted throughout the procedure and closed the incisions. ANESTHESIA: General endotracheal by Conor Beavers CRNA. TOURNIQUET TIME: Not applicable. ESTIMATED BLOOD LOSS: Minimal. DRAINS: None. COMPLICATIONS: None. POSTOPERATIVE PLAN: Routine arthroscopy protocol. The patient was transferred to the recovery room in awake and in stable condition. STATEMENT OF MEDICAL NECESSITY: The patient is a 52-year-old gentleman who had previously undergone a left knee arthroscopy with partial medial meniscectomy and chondroplasty. He reports continued medial knee pain. It was now felt that his arthritis had progressed to the point to consider total knee arthroplasty. He complained of continued mechanical symptoms. An MRI revealed a recurrent medial meniscus tear. Due to functional impairment and failure to improve with conservative measures, the patient elected to proceed with surgical intervention. Examination under anesthesia revealed range of motion 0/0/130 with negative Eduardo, negative anterior and posterior drawer, no varus valgus laxity, negative pivot shift. ARTHROSCOPIC FINDINGS: The patella demonstrated grade II chondral flaps inferiorly in an 8 x 8 area. The trochlea demonstrated no gross chondral abnormalities. The medial and lateral gutters were clear. The lateral compartment showed grade I chondral softening of the central portion of the tibial plateau, but no meniscal pathology. The ACL and PCL were intact. The medial compartment demonstrated a horizontal cleavage tearing of the remnant of the posterior horn and body of the meniscus involving approximately 1/3 of the remnant. In addition, there were grade III chondral flaps. There was dense portion of the femoral condyle and tibial plateau on 20 x 20 adjacent areas. DESCRIPTION OF PROCEDURE: After risks and benefits of procedure were discussed and questions were answered, an informed consent was signed and placed on the chart. The operative site was confirmed in the preoperative holding area initialed by the surgeon. The patient was then transferred to the operating room and after adequate levels of general endotracheal anesthetic were obtained, a timeout was called confirming the operative site. Examination under anesthesia was performed with the above findings noted. The left lower extremity was prepped and draped in the usual sterile fashion. The knee joint was injected with 60 mL of fluid. A standard inferolateral portal was placed with the arthroscope under direct visualization, inferior medial portal was created. The menisci and cruciates were carefully probed with the above findings noted. The unstable chondral flaps of the patella were debrided with a shaver back to a stable edge. Scope was then redirected into the medial compartment with unstable chondral flaps. The medial tibial plateau and medial femoral condyle were debrided with shaver back to a stable edge. The posterior horn and body of the medial meniscus were then debrided with a biter and shaver removing approximately one-third of the remnant of the posterior horn and body. This was carefully probed with no further tearing or instability noted. The knee was copiously irrigated. Portal sites were closed with 4-0 nylon in simple interrupted fashion. Knee was injected with Duramorph. Portal sites were infiltrated with plain Marcaine. A soft dressing was applied and the patient was transferred to the recovery room in awake and in stable condition. Job ID: [id number] DocumentID: [id number] Dictated Date: 04/06/2018 08:19:41 Core Man Date: 04/06/2018 15:48:31 Dictated By: ANIBAL GÓMEZ MD
== END 2018-04-06 11:35 | disposition home or self-care (01) ==
LOC: SDC 06:49
PROVIDERS: ATTEND Orthopaedic Surgery
DX: M23.231 Derangement of other medial meniscus due to old tear or injury, right knee (principal); M22.41 Chondromalacia patellae, right knee; I10 Essential (primary) hypertension; F41.9 Anxiety disorder, unspecified; R25.1 Tremor, unspecified; Z79.899 Other long term (current) drug therapy; Z87.891 Personal history of nicotine dependence; J45.909 Unspecified asthma, uncomplicated; G47.33 Obstructive sleep apnea (adult) (pediatric); K21.9 Gastro-esophageal reflux disease without esophagitis; E66.01 Morbid (severe) obesity due to excess calories; F43.10 Post-traumatic stress disorder, unspecified; Z68.41 Body mass index [BMI] 40.0-44.9, adult
CPT/HCPCS: 93005

== ENCOUNTER 2018-05-08 20:09 | Emergency (ER) | payer OTHER | END 2018-05-08 21:19 | disposition home or self-care (01) | LOC: ER 20:09 ==

== ENCOUNTER 2018-12-15 18:24 | Emergency (ER) | payer OTHER ==
[~2018-12-15] VITALS: Ht 167.6 cm; Wt 122.5 kg
[~2018-12-15 18:24] MED LIST changes: +HYDR-3875 PO; +LOSA100T57 PO; -LOSA100T8 PO
[2018-12-15] MEDS: LIDOCAINE 1% INJ 20 ML 20 ML VIAL INJ ONE (18:48)
[2018-12-15] MEDS: TETANUS,DIPTH,PERTUSS P/F (BOOSTRIX) 0.5 ML VIAL IM ONE (18:49)
--- NOTE | 2018-12-15 19:25 | NUR ---
4 SUTURES WITH 4-[address] PRICE TO 2CM LAC TO LEFT THUMB. COVERED WITH TRIPLE ANTIBIOTIC OINTMENT AND COVERED WITH TELFA JOHNNY POZO DRSG AND HUDSON CEJAG.
[2018-12-15] MEDS ORDERED: SULF1TAB35 PO (19:27)
--- NOTE | 2018-12-15 19:28 | ED General ---
General Chief Complaint: Laceration Stated Complaint: L HAND THUMB LAC Nursing Triage Note: PATIENT STATES THAT HE WAS CUTTING TABS OFF A LID OF A BUCKET, HANDS SLIPPED LACERATING HIS LEFT THUMB. Nursing Sepsis Screen: No Definite Risk Source of Information: Patient Exam Limitations: No Limitations (RACHEL MEDINA MD) History of Present Illness Date Seen by Provider: Dec 15, 2018 Time Seen by Provider: 18:50 Initial Comments 53 yo male presents to the ER due to a laceration of the left thumb. The laceration was approximately 2 cm long on the dorsal aspect, and extended from the distal aspect of the first phalanx to the proximal aspect of the second phalanx. Nail bed was intact, sensation of the thumb was intact, and extension of the thumb was intact. The laceration was due to a pocket knife as the patient was cutting the tab of a bucket. The pocket knife was not clean and had previously been used to filet fish. Patient said he had applied pressure with a wash cloth to prevent bleeding. (JANAY BERMUDEZ) Allergies and Home Medications Allergies Coded Allergies: No Known Drug Allergies (Unverified , 04/06/18) Home Medications Albuterol Sulfate 1 Puff Puff, 2 PUFF IH Q6H PRN for WHEEZING, (Reported) 1 PUFF = 90 MCG Alprazolam 0.25 Mg Tablet, 0.25 MG PO DAILY, (Reported) Atenolol 50 Mg Tablet, 50 MG PO DAILY, (Reported) Buspirone HCl 10 Mg Tablet, 10 MG PO BID, (Reported) Cyclobenzaprine HCl 10 Mg Tablet, 10 MG PO TID, (Reported) Diphenhydramine HCl 12.5 Mg Tab.rapdis, 12.5 MG PO BID PRN for ALLERGIES, (Reported) Folic Acid 1 Mg Tablet, 1 MG PO DAILY, (Reported) Hydrocodone/Acetaminophen 1 Each Tablet, 1 EACH PO Q4H Prescribed by: CEE TERRAZAS on 04/06/18 1007 Losartan Potassium 100 Mg Tablet, 100 MG PO DAILY, (Reported) Lovastatin 40 Mg Tablet, 40 MG PO HS, (Reported) Montelukast Sodium 10 Mg Tablet, 10 MG PO HS, (Reported) Nabumetone 750 Mg Tablet, 750 MG PO BID, (Reported) Sertraline HCl 100 Mg Tablet, 150 MG PO DAILY, (Reported) TAKE 1 1/2 OF 100MG TAB Sulfamethoxazole/Trimethoprim 1 Each Tablet, 1 EACH PO BID Prescribed by: RACHEL PANTOJA on 12/15/181926 Patient Home Medication List Home Medication List Reviewed: Yes (RAHCEL MEDINA MD) Review of Systems Review of Systems Constitutional: no symptoms reported Respiratory: no symptoms reported Cardiovascular: no symptoms reported Musculoskeletal: no symptoms reported Laceration noted on the left thumb. See HPI. (JANAY BERMUDEZ) Past Gnjpnaf-Vqlnjj-Cczpww Hx Patient Social History Alcohol Use: Rarely Uses Number of Drinks Today: AA Alcohol Beverage of Choice: Beer Recreational Drug Use: No Smoking Status: Former Smoker Type Used: Cigarettes Former Smoker, Quit: Jan 05, 2016 2nd Hand Smoke Exposure: No Recent Foreign Travel: No Contact w/Someone Who Travel: No Recent Infectious Disease Expo: No Recent Hopitalizations: No (RACHEL MEDINA MD) Immunizations Up To Date Date of Pneumonia Vaccine: Jan 13, 2018 Date of Influenza Vaccine: Jan 13, 2018 (RACHEL MEDINA MD) Past Medical History Surgeries: Yes (r/l knee, l shoulder) Respiratory: Yes Asthma, Sleep Apnea Currently Using CPAP: Yes Cardiac: Yes High Cholesterol, Hypertension Neurological: No Genitourinary: No Gastrointestinal: No Musculoskeletal: Yes (psciatica, spinal stenosis, leg tremors) Degenerate Disk Disease, Arthritis, Chronic Back Pain Endocrine: No Cancer: No Psychosocial: Yes Anxiety, PTSD, Depression Integumentary: No Blood Disorders: No (RACHEL MEDINA MD) Physical Exam Vital Signs Vital Signs - First Documented 12/15/18 18:30 Temp 99.0 Pulse 97 Resp 20 B/P (MAP) 123/110 (114) Pulse Ox 97 (JANAY BERMUDEZ) Vital Signs Capillary Refill : Less Than 3 Seconds (RACHEL MEDINA MD) Height, Weight, BMI Height: 5'6.00" Weight: 270lbs. 0oz. [id number]; 43.2 BMI Method:Actual (RACHEL MEDINA MD) General Appearance: No Apparent Distress, WD/WN Respiratory: Chest Non Tender, Lungs Clear, Normal Breath Sounds, No Accessory Muscle Use, No Respiratory Distress Cardiovascular: Regular Rate, Rhythm, No Edema, No Gallop, No JVD, No Murmur, Normal Peripheral Pulses Skin: Normal Color, Warm/Dry, Other (Superficial, curved laceration on the dorsal aspect of the left thumb. Approximately 2 cm. See HPI) Comments Sensation and movement of the left thumb was intact (JANAY BERMUDEZ) Procedures/Interventions Wound Location: Upper Extremities Wound Length (cm): 2 Wound's Depth, Shape: superficial, irregular Wound Explored: clean Irrigated w/ Saline (ccs): 500 Anesthesia: 1% Lidocaine Volume Anesthetic (ccs): 5 Suture: Prolene Suture Size: 4-0 Number of Sutures: 4 Number Deep Layer Sutures: 0 Sterile Dressing Applied?: Yes Progress Laceration was sprayed with lidocaine. Injection of lidocaine was applied by Dr. Medina and IRINA Bermudez. Chlorhexidine was added to the saline, and the laceration was then irrigated with solution to properly clean the wound. To stop the bleeding and allow proper visualization of the wound, a large finger tourniquet was applied. 4 sutures with 4-0 proline were applied to the 2 cm laceration on the left thumb. The middle 2 sutures were applied by Dr. Medina to properly align the skin and the 2 outside sutures were applied by IRINA Bermudez. Bleeding did resume after tourniquet was removed,but 30 seconds of pressure applied with 4x4 gauze stopped the bleeding. (JANAY BERMUDEZ) Progress/Results/Core Measures Suspected Sepsis Recent Fever Within 48 Hours: No Infection Criteria Present: None New/Unexplained Altered Menta: No Sepsis Screen: No Definite Risk SIRS Temperature:99.0 Pulse: 97 Respiratory Rate: 20 Blood Pressure 123 /110 Mean: 114 (RACHEL MEDINA MD) Results/Orders Medications Given in ED Current Medications Medications Dose Ordered Sig/Judy Route Start Time Stop Time Status Last Admin Dose Admin Diphtheria/ Tetanus/Acell Pertussis 0.5 ml ONCE ONCE IM 12/15/18 18:45 12/15/18 18:46 DC 12/15/18 18:49 0.5 ML Lidocaine HCl 20 ml ONCE ONCE INJ 12/15/18 18:45 12/15/18 18:46 DC 12/15/18 18:48 20 ML Trimethoprim/ Sulfamethoxazole 1 ea ONCE ONCE PO 12/15/18 19:30 12/15/18 19:31 DC 12/15/18 19:33 1 EA (JANAY BERMUDEZ) Vital Signs/I&O 12/15/18 12/15/18 18:30 19:33 Temp 99.0 99.0 Pulse 97 90 Resp 20 20 B/P (MAP) 123/110 (114) 122/99 (107) Pulse Ox 97 98 (JANAY BERMUDEZ) Vital Signs/I&O Capillary Refill : Less Than 3 Seconds (RACHEL MEDINA MD) Blood Pressure Mean: 114 Progress Note : Time: 19:30 Progress Note Bactrim was applied to the dressing to prevent infection. TDaP vaccine was given prophylactically. Patient was informed to limit activity with left hand. Patient was informed that wound should be kept clean. Patient was informed to apply pressure to the wound if bleeding resumed. (JANAY BERMUDEZ) Departure Impression Primary Impression: Laceration of thumb Qualified Codes: S61.012A - Laceration without foreign body of left thumb without damage to nail, initial encounter Disposition: 01 HOME, SELF-CARE Condition: Improved Departure-Patient Inst. Decision time for Depature: 19:00 (RACHEL MEDINA MD) Referrals: ROSALINA GRAHAM MD (PCP/Family) Primary Care Physician Patient Instructions: Laceration Repair With Stitches (DC) Add. Discharge Instructions: Keep your wound clean and dry with the exception of normal showering and handwashing. Do not submerge until sutures are removed. Cover when exposed to dirty or sweaty environments or when active. Covering will help prevent you from snagging the sutures on pockets or other objects. You may cover with simple Band-Aids or a gauze wrap. Monitor for signs of infection such as increasing redness, increasing swelling, increasing pain, puslike drainage, or fever. Return to care promptly if you notice these symptoms. Complete antibiotics as prescribed for infection prevention. Return in 10 days to have the sutures removed. You may use Tylenol (acetaminophen) and/or ibuprofen for pain. All discharge instructions reviewed with patient and/or family. Voiced understanding. Scripts Sulfamethoxazole/Trimethoprim (Bactrim Ds Tablet) 1 Each Tablet 1 EACH PO BID, #10 TAB Prov: RACHEL MEDINA MD 12/15/18 This patient was interviewed, seen, and examined by me personally along with Janay Godoy, MS 3. Laceration was repaired with the assistance of MS 3. He shouldn't presents with a 2 cm laceration on the dorsum of the left thumb caused by a slip of a pocket knife. Wound is still bleeding at the time of arrival. Patient maintains sensation distally and extension of the thumb. Exam: Gen.: Alert, oriented, no acute distress HEENT: Normocephalic and atraumatic Heart: Regular rate and rhythm without murmur Lungs: Clear to auscultation bilaterally with normal effort Extremity: 2 cm laceration of the dorsum of the left thumb over the distal joint. Laceration extends into subcutaneous tissue. There is no obvious tendon involvement. Wound was irrigated with saline and chlorhexidine. It was approximated in the usual fashion as described above. I was personally present and supervising the entire procedure. I agree with MS 3 documentation of history, exam, and procedure. (RACHEL MEDINA MD) RACHEL MEDINA MD Dec 15, 2018 19:28 JANAY BERMUDEZ [facility] Dec 15, 2018 19:37
[2018-12-15 19:33] VITALS: BP 122/99
[2018-12-15] MEDS: TRIM/SULFAMETH 160/800 (SEPTRA DS) TAB PO ONE (19:33)
== END 2018-12-15 19:34 | disposition home or self-care (01) ==
LOC: EDUNIT# 18:24 → ER 18:25
DX: S61.012A Laceration without foreign body of left thumb without damage to nail, initial encounter (principal); J45.909 Unspecified asthma, uncomplicated; F41.9 Anxiety disorder, unspecified; F32.9 Major depressive disorder, single episode, unspecified; F43.10 Post-traumatic stress disorder, unspecified; G47.30 Sleep apnea, unspecified; Z99.89 Dependence on other enabling machines and devices; Z23 Encounter for immunization; Z87.891 Personal history of nicotine dependence; W26.0XXA Contact with knife, initial encounter
CPT/HCPCS: 90715

== ENCOUNTER 2018-12-25 02:58 | Emergency (ER) | payer MEDICAID ==
[~2018-12-25] VITALS: Ht 167.6 cm; Wt 122.5 kg
[~2018-12-25 02:58] MED LIST changes: +SULF1TAB35 PO
[2018-12-25] MEDS ORDERED: ORPHENADRINE 60 MG/2 ML (NORFLEX) AMP IM STA (03:13)
[2018-12-25] MEDS ORDERED: predniSONE 20 MG TAB PO ONE (03:15)
[2018-12-25] MEDS ORDERED: RX-HYDROCODONE/APAP 5/325 MG #4 TAB PK PO PRN (03:15)
[2018-12-25] MEDS ORDERED: PRD20T PO (03:30)
--- NOTE | 2018-12-25 03:30 | ED Back Pain ---
General Chief Complaint: Back Problems Stated Complaint: BACK PAIN Source of Information: Patient Exam Limitations: No Limitations History of Present Illness Date Seen by Provider: Dec 25, 2018 Time Seen by Provider: 03:08 Initial Comments Here with low back pain on the right side that radiates down the right leg. States it feels like his sciatica. He's had kidney stones in the past and states that feels different. Denies numbness between his legs or weakness. Does hurt when walking. Onset about 24 hours ago. He went fishing yesterday morning and was unable to sit in the boat for very long because the pain was getting worse. Pain then worsened throughout the day until requiring presentation now for pain. He is on Flexeril 3 times a day as well as Celebrex BID. He has been taking those. That is not really helping. Had similar issue approximately a year ago. Does have chronic back pain that he is currently in physical therapy for. Denies any recent injury or falls. Timing/Duration: 24 Hours Severity: Moderate Pain/Injury Location: Back Radiation: Buttocks, Upper Legs Method of Injury: Unknown Modifying Factors: Improves With Immobilization; Worse With Movement Associated Symptoms: muscle spasms; No fever, No weakness; tingling in legs/feet, lower back pain; No loss of bladder control, No loss of bowel control Allergies and Home Medications Allergies Coded Allergies: No Known Drug Allergies (Unverified , 04/06/18) Home Medications Albuterol Sulfate 1 Puff Puff, 2 PUFF IH Q6H PRN for WHEEZING, (Reported) 1 PUFF = 90 MCG Alprazolam 0.25 Mg Tablet, 0.25 MG PO DAILY, (Reported) Atenolol 50 Mg Tablet, 50 MG PO DAILY, (Reported) Buspirone HCl 10 Mg Tablet, 10 MG PO BID, (Reported) Cyclobenzaprine HCl 10 Mg Tablet, 10 MG PO TID, (Reported) Diphenhydramine HCl 12.5 Mg Tab.rapdis, 12.5 MG PO BID PRN for ALLERGIES, (Reported) Folic Acid 1 Mg Tablet, 1 MG PO DAILY, (Reported) Hydrocodone/Acetaminophen 1 Each Tablet, 1 EACH PO Q4H Prescribed by: CEE TERRAZAS on 04/06/18 1007 Losartan Potassium 100 Mg Tablet, 100 MG PO DAILY, (Reported) Lovastatin 40 Mg Tablet, 40 MG PO HS, (Reported) Montelukast Sodium 10 Mg Tablet, 10 MG PO HS, (Reported) Nabumetone 750 Mg Tablet, 750 MG PO BID, (Reported) Sertraline HCl 100 Mg Tablet, 150 MG PO DAILY, (Reported) TAKE 1 1/2 OF 100MG TAB Sulfamethoxazole/Trimethoprim 1 Each Tablet, 1 EACH PO BID Prescribed by: RACHEL PANTOJA on 12/15/181926 Patient Home Medication List Home Medication List Reviewed: Yes Review of Systems Constitutional: see HPI; No chills, No fever Respiratory: no symptoms reported Cardiovascular: no symptoms reported Musculoskeletal: see HPI, back pain, muscle stiffness Psychiatric/Neurological: See HPI Past Kwqhtrs-Cerbfr-Iaommf Hx Past Med/Social Hx: Reviewed Nursing Past Med/Soc Hx Patient Social History Alcohol Use: Occasionally Uses Number of Drinks Today: AA Alcohol Beverage of Choice: Beer Recreational Drug Use: No Smoking Status: Former Smoker Type Used: Cigarettes Former Smoker, Quit: Jan 05, 2016 2nd Hand Smoke Exposure: No Recent Foreign Travel: No Contact w/Someone Who Travel: No Recent Hopitalizations: No Immunizations Up To Date Date of Pneumonia Vaccine: Jan 13, 2018 Date of Influenza Vaccine: Jan 13, 2018 Seasonal Allergies Seasonal Allergies: Yes Past Medical History Surgeries: Yes (r/l knee, l shoulder) Respiratory: Yes Asthma, Sleep Apnea Currently Using CPAP: Yes Cardiac: Yes High Cholesterol, Hypertension Neurological: No Headaches /Migraines Genitourinary: No Gastrointestinal: No Musculoskeletal: Yes (psciatica, spinal stenosis, leg tremors) Degenerate Disk Disease, Arthritis, Chronic Back Pain Endocrine: No HEENT: Yes Cataract, Glaucoma Cancer: No Psychosocial: Yes Anxiety, PTSD, Depression Integumentary: No Blood Disorders: No Family Medical History Reviewed Nursing Family Hx No Pertinent Family Hx Physical Exam Vital Signs Capillary Refill : Height, Weight, BMI Height: 5'6.00" Weight: 270lbs. 0oz. 122.353241xe; 43.2 BMI Method:Actual General Appearance: WD/WN, Mild Distress Cardiovascular: Regular Rate, Rhythm, No Murmur Respiratory: Lungs Clear, Normal Breath Sounds Gastrointestinal: Non Tender, Soft Back: No Vertebral Tenderness, Muscle Spasm, Other (tender near the right SI joint with spasm noted right paraspinous lumbar area) Extremity: Non Tender, No Calf Tenderness Neurologic/Psychiatric: Alert, Oriented x3, Other (retains sensation to light touch between legs. Able to point toes.) Skin: Normal Color, Warm/Dry Procedures/Interventions Suture Size: 4-0 Progress/Results/Core Measures Results/Orders My Orders Orders - JYOTI HUNT MD Prednisone Tablet (Deltasone Tablet) (12/25/18 03:15) Rx-Hydrocodone/Apap 5-325 Mg (Rx-Vicodin (12/25/18 03:15) Orphenadrine Injection (Norflex Injectio (12/25/18 03:13) Medications Given in ED Current Medications Medications Dose Ordered Sig/Judy Route Start Time Stop Time Status Last Admin Dose Admin Acetaminophen/ Hydrocodone Bitart 1 ea Q6H PRN PO 12/25/18 03:15 12/25/18 03:20 1 EA Prednisone 40 mg ONCE ONCE PO 12/25/18 03:15 12/25/18 03:16 DC 12/25/18 03:20 40 MG Progress Progress Note : Progress Note Seen and evaluated. Norflex 60 mg IM, prednisone 40 mg by mouth and hydrocodone go pack given. Discharged home with return precautions. Patient verbalize understanding instructions and agreement with plan. He has appointment with Dr. Graham tomorrow. Departure Impression Primary Impression: Lumbar radiculopathy Disposition: HOME, SELF-CARE Condition: Stable Departure-Patient Inst. Decision time for Depature: 03:29 Referrals: ROSALINA GRAHAM MD (PCP/Family) Primary Care Physician Patient Instructions: Radiculopathy (DC), Low Back Pain (DC) Add. Discharge Instructions: All discharge instructions reviewed with patient and/or family. Voiced understanding. Take medications as directed. Follow up with your doctor tomorrow as scheduled. Continue home medications as previously prescribed. Return for worse pain, weakness, numbness between your legs, difficulty with walking or going to the bathroom or other concerns as needed. Scripts Prednisone (Prednisone) 20 Mg Tab 40 MG PO DAILY, #12 TAB 0 Refills Prov: JYOTI HUNT MD 12/25/18 JYOTI HUNT MD Dec 25, 2018 03:30
[2018-12-25 03:39] VITALS: BP 135/85
== END 2018-12-25 03:38 | disposition home or self-care (01) ==
LOC: EDUNIT# 02:58 → ER 03:00
DX: M54.16 Radiculopathy, lumbar region (principal); G47.30 Sleep apnea, unspecified; J45.909 Unspecified asthma, uncomplicated; I10 Essential (primary) hypertension; E78.00 Pure hypercholesterolemia, unspecified; G43.909 Migraine, unspecified, not intractable, without status migrainosus; F41.9 Anxiety disorder, unspecified; F43.10 Post-traumatic stress disorder, unspecified; F32.9 Major depressive disorder, single episode, unspecified; Z87.891 Personal history of nicotine dependence
CPT/HCPCS: 96372; 99284

== ENCOUNTER 2019-01-01 16:33 | Emergency (ER) | payer MEDICAID ==
[~2019-01-01] VITALS: Ht 167.7 cm; Wt 122.0 kg
[2019-01-01 17:16] LABS: BASOPHILS # (AUTO) 0.1 10^3/uL (0.0-0.1); BASOPHILS % (AUTO) 1 % (0-10); EOSINOPHILS # (AUTO) 0.3 10^3/uL (0.0-0.3); EOSINOPHILS % (AUTO) 3 % (0-10); HEMATOCRIT 47 % (40-54); HEMOGLOBIN 15.9 G/DL (13.3-17.7); LYMPHOCYTES # (AUTO) 3.1 X 10^3 (1.0-4.0); LYMPHOCYTES % (AUTO) 28 % (12-44); MEAN CORPUSCULAR HEMOGLOBIN 31 PG (25-34); MEAN CORPUSCULAR HGB CONC 34 G/DL (32-36); MEAN CORPUSCULAR VOLUME 91 FL (80-99); MEAN PLATELET VOLUME 9.4 FL (7.4-10.4); MONOCYTES # (AUTO) 0.9 X 10^3 (0.0-1.0); MONOCYTES % (AUTO) 8 % (0-12); NEUTROPHILS # (AUTO) 6.7 X 10^3 (1.8-7.8); NEUTROPHILS % (AUTO) 60 % (42-75); PLATELET COUNT 290 10^3/uL (130-400); RED CELL DISTRIBUTION WIDTH 14.2 % (10.0-14.5); WHITE BLOOD COUNT 11.1 10^3/uL (4.3-11.0)
[2019-01-01 17:20] LABS: BILIRUBIN,URINE NEGATIVE (NEGATIVE); CLARITY,URINE CLEAR; COLOR,URINE YELLOW; GLUCOSE, URINE (UA) NEGATIVE (NEGATIVE); KETONES,URINE NEGATIVE (NEGATIVE); LEUKOCYTE ESTERASE ,URINE NEGATIVE (NEGATIVE); NITRITE,URINE NEGATIVE (NEGATIVE); PH,URINE 5 (5-9); PROTEIN,URINE NEGATIVE (NEGATIVE); UROBILINOGEN,URINE NORMAL (NORMAL)
[2019-01-01 17:30] LABS: BACTERIA,URINE TRACE /HPF; HYALINE CASTS, URINE RARE /LPF
--- NOTE | 2019-01-01 17:30 | ED General ---
General Chief Complaint: General Problems/Pain Stated Complaint: DIARRHEA/JOINT PAIN/LETHARGIC/FEVER Nursing Triage Note: STATES SINCE HE RECIEVED A TETAUNS SHOT HERE 16 DAYS AGO HE HAS NOT FELT WELL. N/V/D ALONG WITH FEVER AND FEVER AND HARDNESS IN THE LEFT ARM HE RECIEVED THE SHOT IN. Nursing Sepsis Screen: Possible Severe Sepsis Risk Source of Information: Patient Exam Limitations: No Limitations History of Present Illness Date Seen by Provider: Jan 01, 2019 Time Seen by Provider: 17:28 Initial Comments To ER with concern of adverse reaction to a tetanus shot. He is here for laceration 16 days ago, had a tetanus shot of treatment. He now has soreness to the left arm injection site, 2-3 days after receiving the injection he developed diffuse joint pains, back pain, nausea and malaise and body aches this has worsened over the past 2-4 days. He had a fever earlier today at home, doesn't have a thermometer but expects that it was about 102-103. It was high enough that he had to have his son vital him a cold chocolate milkshake to bring the f ever down. Timing/Duration: 1-2 Days Severity: Moderate Allergies and Home Medications Allergies Coded Allergies: No Known Drug Allergies (Unverified , 04/06/18) Home Medications Albuterol Sulfate 1 Puff Puff, 2 PUFF IH Q6H PRN for WHEEZING, (Reported) 1 PUFF = 90 MCG Alprazolam 0.25 Mg Tablet, 0.25 MG PO DAILY, (Reported) Atenolol 50 Mg Tablet, 50 MG PO DAILY, (Reported) Buspirone HCl 10 Mg Tablet, 10 MG PO BID, (Reported) Cyclobenzaprine HCl 10 Mg Tablet, 10 MG PO TID, (Reported) Diphenhydramine HCl 12.5 Mg Tab.rapdis, 12.5 MG PO BID PRN for ALLERGIES, (Reported) Folic Acid 1 Mg Tablet, 1 MG PO DAILY, (Reported) Hydrocodone/Acetaminophen 1 Each Tablet, 1 EACH PO Q4H Prescribed by: ECE TERRAZAS on 04/06/18 1007 Losartan Potassium 100 Mg Tablet, 100 MG PO DAILY, (Reported) Lovastatin 40 Mg Tablet, 40 MG PO HS, (Reported) Montelukast Sodium 10 Mg Tablet, 10 MG PO HS, (Reported) Nabumetone 750 Mg Tablet, 750 MG PO BID, (Reported) Prednisone 20 Mg Tab, 40 MG PO DAILY Prescribed by: JYOTI HUNT on 12/25/18 0330 Sertraline HCl 100 Mg Tablet, 150 MG PO DAILY, (Reported) TAKE 1 1/2 OF 100MG TAB Sulfamethoxazole/Trimethoprim 1 Each Tablet, 1 EACH PO BID Prescribed by: RACHEL PANTOJA on 12/15/187 Patient Home Medication List Home Medication List Reviewed: Yes Review of Systems Review of Systems Constitutional: see HPI EENTM: see HPI Respiratory: no symptoms reported Cardiovascular: no symptoms reported Genitourinary: no symptoms reported Musculoskeletal: no symptoms reported Skin: no symptoms reported Psychiatric/Neurological: No Symptoms Reported Hematologic/Lymphatic: No Symptoms Reported Immunological/Allergic: no symptoms reported Past Xmrmeay-Utcrrl-Mzvymf Hx Patient Social History Alcohol Use: Occasionally Uses Alcohol Beverage of Choice: Beer Recreational Drug Use: No Smoking Status: Never a Smoker Type Used: Cigarettes Former Smoker, Quit: Jan 05, 2016 2nd Hand Smoke Exposure: No Recent Foreign Travel: No Contact w/Someone Who Travel: No Recent Infectious Disease Expo: No Recent Hopitalizations: No Immunizations Up To Date Date of Pneumonia Vaccine: Jan 13, 2018 Date of Influenza Vaccine: Jan 13, 2018 Seasonal Allergies Seasonal Allergies: Yes Past Medical History Surgeries: Yes (r/l knee, l shoulder) Respiratory: Yes Asthma, Sleep Apnea Currently Using CPAP: Yes Cardiac: Yes High Cholesterol, Hypertension Neurological: No Headaches /Migraines Genitourinary: No Gastrointestinal: No Musculoskeletal: Yes (psciatica, spinal stenosis, leg tremors) Degenerate Disk Disease, Arthritis, Chronic Back Pain Endocrine: No HEENT: Yes Cataract, Glaucoma Cancer: No Psychosocial: Yes Anxiety, PTSD, Depression Integumentary: No Blood Disorders: No Family Medical History No Pertinent Family Hx Physical Exam Vital Signs Vital Signs - First Documented 01/01/19 16:35 Temp 36.0 Pulse 118 Resp 16 B/P (MAP) 174/134 (147) Pulse Ox 97 O2 Delivery Room Air Capillary Refill : Less Than 3 Seconds Height, Weight, BMI Height: 5'6.00" Weight: 270lbs. 0oz. 122.240589ug; 43.00 BMI Method:Actual General Appearance: No Apparent Distress, WD/WN Eyes: Bilateral Eye Normal Inspection, Bilateral Eye PERRL, Bilateral Eye EOMI (all) HEENT: PERRL/EOMI, TMs Normal Respiratory: No Accessory Muscle Use, No Respiratory Distress Cardiovascular: Regular Rate, Rhythm, Normal Peripheral Pulses Gastrointestinal: Normal Bowel Sounds, Non Tender, Soft Extremity: Normal Capillary Refill, Normal Inspection Neurologic/Psychiatric: Alert, Oriented x3, No Motor/Sensory Deficits Skin: Normal Color, Warm/Dry Procedures/Interventions Suture Size: 4-0 Progress/Results/Core Measures Suspected Sepsis Recent Fever Within 48 Hours: Yes Infection Criteria Present: Suspected New Infection New/Unexplained Altered Menta: No Sepsis Screen: Possible Severe Sepsis Risk SIRS Temperature: Pulse: 118 Respiratory Rate: 16 Laboratory Tests 01/01/19 16:56: White Blood Count 11.1H Blood Pressure 174 /134 Mean: 147 Laboratory Tests 01/01/19 16:56: Creatinine 0.79, Platelet Count 290, Total Bilirubin 0.8 Results/Orders Lab Results Laboratory Tests Test 01/01/19 16:56 01/01/19 17:13 Range/Units White Blood Count 11.1 H 4.3-11.0 10^3/uL Red Blood Count 5.19 4.35-5.85 10^6/uL Hemoglobin 15.9 13.3-17.7 G/DL Hematocrit 47 40-54 % Mean Corpuscular Volume 91 80-99 FL Mean Corpuscular Hemoglobin 31 25-34 PG Mean Corpuscular Hemoglobin Concent 34 32-36 G/DL Red Cell Distribution Width 14.2 10.0-14.5 % Platelet Count 290 130-400 10^3/uL Mean Platelet Volume 9.4 7.4-10.4 FL Neutrophils (%) (Auto) 60 42-75 % Lymphocytes (%) (Auto) 28 12-44 % Monocytes (%) (Auto) 8 0-12 % Eosinophils (%) (Auto) 3 0-10 % Basophils (%) (Auto) 1 0-10 % Neutrophils # (Auto) 6.7 1.8-7.8 X 10^3 Lymphocytes # (Auto) 3.1 1.0-4.0 X 10^3 Monocytes # (Auto) 0.9 0.0-1.0 X 10^3 Eosinophils # (Auto) 0.3 0.0-0.3 10^3/uL Basophils # (Auto) 0.1 0.0-0.1 10^3/uL Erythrocyte Sedimentation Rate 4 0-30 MM/HR Sodium Level 141 135-145 MMOL/L Potassium Level 3.7 3.6-5.0 MMOL/L Chloride Level 107 98-107 MMOL/L Carbon Dioxide Level 24 21-32 MMOL/L Anion Gap 10 5-14 MMOL/L Blood Urea Nitrogen 13 7-18 MG/DL Creatinine 0.79 0.60-1.30 MG/DL Estimat Glomerular Filtration Rate > 60 BUN/Creatinine Ratio 16 Glucose Level 114 H 70-105 MG/DL Calcium Level 9.1 8.5-10.1 MG/DL Corrected Calcium 9.0 8.5-10.1 MG/DL Total Bilirubin 0.8 0.1-1.0 MG/DL Aspartate Amino Transf (AST/SGOT) 27 5-34 U/L Alanine Aminotransferase (ALT/SGPT) 43 0-55 U/L Alkaline Phosphatase 122 40-136 U/L C-Reactive Protein High Sensitivity 0.71 H 0.00-0.50 MG/DL Total Protein 7.1 6.4-8.2 GM/DL Albumin 4.1 3.2-4.5 GM/DL Urine Color YELLOW Urine Clarity CLEAR Urine pH 5 5-9 Urine Specific [place] 1.025 H 1.016-1.022 Urine Protein NEGATIVE NEGATIVE Urine Glucose (UA) NEGATIVE NEGATIVE Urine Ketones NEGATIVE NEGATIVE Urine Nitrite NEGATIVE NEGATIVE Urine Bilirubin NEGATIVE NEGATIVE Urine Urobilinogen NORMAL NORMAL MG/DL Urine Leukocyte Esterase NEGATIVE NEGATIVE Urine RBC (Auto) NEGATIVE NEGATIVE Urine RBC NONE /HPF Urine WBC NONE /HPF Urine Squamous Epithelial Cells NONE /HPF Urine Crystals NONE /LPF Urine Bacteria TRACE /HPF Urine Casts PRESENT /LPF Urine Hyaline Casts RARE /LPF Urine Mucus MODERATE H /LPF Urine Culture Indicated NO My Orders Orders - FUAD METZGER APRN Cbc With Automated Diff (01/01/19 16:55) Comprehensive Metabolic Panel (01/01/19 16:55) Ua Culture If Indicated (01/01/19 16:55) Ed Iv/Invasive Line Start (01/01/19 16:55) Erythrocyte Sedimentation Rate (01/01/19 16:55) Hs C Reactive Protein (01/01/19 16:55) Ketorolac Injection (Toradol Injection) (01/01/19 17:45) Normal Saline Bolus 1,000ml (01/01/19 17:45) Dexamethasone Injection (Decadron Inject (01/01/19 18:00) Medications Given in ED Current Medications Medications Dose Ordered Sig/Judy Route Start Time Stop Time Status Last Admin Dose Admin Ketorolac Tromethamine 30 mg ONCE ONCE IVP 01/01/19 17:45 01/01/19 17:46 DC 01/01/19 17:50 30 MG Vital Signs/I&O 01/01/19 16:35 Temp 36.0 Pulse 118 Resp 16 B/P (MAP) 174/134 (147) Pulse Ox 97 O2 Delivery Room Air Capillary Refill : Less Than 3 Seconds Blood Pressure Mean: 147 Departure Impression Primary Impression: Medication adverse effect Qualified Codes: T50.905A - Adverse effect of unspecified drugs, medicaments and biological substances, initial encounter Disposition: 01 HOME, SELF-CARE Condition: Stable Departure-Patient Inst. Decision time for Depature: 17:56 Referrals: ROSALINA GRAHAM MD (PCP/Family) Primary Care Physician Patient Instructions: Adverse Drug Reactions, Adult (DC) FUAD METZGER [employer] Jan 01, 2019 17:30
[2019-01-01 17:36] LABS: ERYTHROCYTE SEDIMENTATION RATE 4 MM/HR (0-30)
[2019-01-01 17:42] LABS: ALANINE AMINOTRANSFERASE 43 U/L (0-55); ALBUMIN 4.1 GM/DL (3.2-4.5); ALKALINE PHOSPHATASE 122 U/L (40-136); BILIRUBIN,TOTAL 0.8 MG/DL (0.1-1.0); BUN/CREATININE RATIO 16; CALCIUM 9.1 MG/DL (8.5-10.1); CARBON DIOXIDE 24 MMOL/L (21-32); CHLORIDE 107 MMOL/L (98-107); CREATININE SERUM 0.79 MG/DL (0.60-1.30); GFR ESTIMATED > 60; GLUCOSE 114 MG/DL (70-105); POTASSIUM 3.7 MMOL/L (3.6-5.0); SODIUM 141 MMOL/L (135-145); TOTAL PROTEIN 7.1 GM/DL (6.4-8.2)
[2019-01-01] MEDS ORDERED: NS IV 1000 ML 1,000 ML IV SCH (17:45)
[2019-01-01] MEDS ORDERED: KETOROLAC 30 MG/ML VIAL IVP ONE (17:45)
[2019-01-01] MEDS ORDERED: DEXAMETHASONE 10 MG/ML (DECADRON) 1 ML VIAL IV ONE (18:00)
[2019-01-01] MEDS ORDERED: LABETALOL HCL 20 MG/4 ML VIAL IV ONE (18:15)
[2019-01-01 18:46] VITALS: BP 134/89
== END 2019-01-01 18:55 | disposition home or self-care (01) ==
LOC: EDUNIT# 16:33 → ER 16:34
DX: R50.9 Fever, unspecified (principal); T50.A95A Adverse effect of other bacterial vaccines, initial encounter; J45.909 Unspecified asthma, uncomplicated; G47.30 Sleep apnea, unspecified; I10 Essential (primary) hypertension; E78.00 Pure hypercholesterolemia, unspecified; G43.909 Migraine, unspecified, not intractable, without status migrainosus; F41.9 Anxiety disorder, unspecified; F32.9 Major depressive disorder, single episode, unspecified; F43.10 Post-traumatic stress disorder, unspecified; Z87.891 Personal history of nicotine dependence
CPT/HCPCS: 36415; 80053; 81000; 85025; 85652; 86141; 96361; 96374; 96375

== ENCOUNTER 2019-02-02 12:01 | Outpatient (CLI) | payer MEDICAID ==
[~2019-02-02] VITALS: Ht 167.7 cm; Wt 127.0 kg
[2019-02-02 12:41] VITALS: BP 125/94
--- NOTE | 2019-02-02 13:01 | Diagnostic Imaging Report ---
INDICATION: Preoperative evaluation prior to knee surgery. PA and lateral views of the chest are obtained. COMPARISON: No previous study is available for comparison at this time. FINDINGS: Heart size and pulmonary vasculature are within normal limits, and the lungs are clear, bilaterally. IMPRESSION: Unremarkable chest. Dictated by: Dictated on workstation # [id number]
[2019-02-02 13:13] LABS: BILIRUBIN,URINE NEGATIVE (NEGATIVE); CLARITY,URINE CLEAR; COLOR,URINE AMBER; GLUCOSE, URINE (UA) NEGATIVE (NEGATIVE); KETONES,URINE 1+ (NEGATIVE); LEUKOCYTE ESTERASE ,URINE NEGATIVE (NEGATIVE); NITRITE,URINE NEGATIVE (NEGATIVE); PH,URINE 5 (5-9); PROTEIN,URINE 1+ (NEGATIVE)
[2019-02-02 13:18] LABS: BASOPHILS % (AUTO) 1 % (0-10); EOSINOPHILS # (AUTO) 0.1 10^3/uL (0.0-0.3); EOSINOPHILS % (AUTO) 2 % (0-10); HEMATOCRIT 45 % (40-54); HEMOGLOBIN 14.9 G/DL (13.3-17.7); LYMPHOCYTES # (AUTO) 2.9 X 10^3 (1.0-4.0); LYMPHOCYTES % (AUTO) 44 % (12-44); MEAN CORPUSCULAR HEMOGLOBIN 31 PG (25-34); MEAN CORPUSCULAR HGB CONC 33 G/DL (32-36); MEAN CORPUSCULAR VOLUME 92 FL (80-99); MONOCYTES # (AUTO) 0.8 X 10^3 (0.0-1.0); MONOCYTES % (AUTO) 11 % (0-12); NEUTROPHILS # (AUTO) 2.8 X 10^3 (1.8-7.8); NEUTROPHILS % (AUTO) 43 % (42-75); PLATELET COUNT 304 10^3/uL (130-400); RED CELL DISTRIBUTION WIDTH 13.7 % (10.0-14.5); WHITE BLOOD COUNT 6.7 10^3/uL (4.3-11.0)
[2019-02-02 13:26] LABS: BACTERIA,URINE TRACE /HPF; CALCIUM OXALATE CRYSTALS,UR FEW /LPF; WBC,URINE 0-2 /HPF
[2019-02-02 13:37] LABS: ALANINE AMINOTRANSFERASE 30 U/L (0-55); ALBUMIN 3.8 GM/DL (3.2-4.5); ALKALINE PHOSPHATASE 103 U/L (40-136); BILIRUBIN,TOTAL 0.3 MG/DL (0.1-1.0); BUN/CREATININE RATIO 17; CALCIUM 8.9 MG/DL (8.5-10.1); CARBON DIOXIDE 24 MMOL/L (21-32); CHLORIDE 107 MMOL/L (98-107); CREATININE SERUM 0.78 MG/DL (0.60-1.30); GFR ESTIMATED > 60; GLUCOSE 115 MG/DL (70-105); SODIUM 139 MMOL/L (135-145); TOTAL PROTEIN 6.6 GM/DL (6.4-8.2)
[2019-02-02] MEDS ORDERED: FLUT1AER IH (14:10)
[2019-02-02] MEDS ORDERED: NABU500T PO (14:10)
[2019-02-02] MEDS ORDERED: PHEN10TA32 PO (14:10)
[2019-02-02] MEDS ORDERED: CELE100C84 PO (14:10)
[2019-02-02] MEDS ORDERED: PREG100C PO (14:10)
[2019-02-02] MEDS ORDERED: FEXO1TAB PO (14:10)
[2019-02-02] MEDS ORDERED: CYCL1DRO OU (14:10)
[2019-02-02] MEDS ORDERED: TRAZ-190 PO (14:10)
[2019-02-02] MEDS ORDERED: PREG75CA PO (14:10)
[2019-02-02 14:17] LABS: ERYTHROCYTE SEDIMENTATION RATE 4 MM/HR (0-30)
[2019-02-02 15:43] LABS: PROTHROMBIN TIME PATIENT 13.5 SEC (12.2-14.7)
[2019-02-03] MEDS ORDERED: PREG150C PO (16:09)
[2019-02-03] MEDS ORDERED: PSEU-137 PO (16:09)
[2019-02-03] MEDS ORDERED: CETI10TA17 PO (16:09)
[2019-02-03] MEDS ORDERED: CYCL10TA9 PO (16:11)
== END 2019-02-02 13:00 | disposition home or self-care (01) ==
LOC: PREOP 12:01
PROVIDERS: ATTEND Orthopaedic Surgery
DX: Z01.812 Encounter for preprocedural laboratory examination (principal); Z01.811 Encounter for preprocedural respiratory examination; Z01.810 Encounter for preprocedural cardiovascular examination; M17.12 Unilateral primary osteoarthritis, left knee
CPT/HCPCS: 36415; 71046; 80053; 81000; 85025; 85610; 85652; 86850; 86900; 86901; 87081

== ENCOUNTER 2019-02-08 07:33 | Inpatient (IN) | payer MEDICAID ==
--- NOTE | 2019-02-02 06:19 | HISTORY AND PHYSICAL ---
DATE OF SERVICE: 02/08/2019 ADMISSION HISTORY AND PHYSICAL DATE OF ADMISSION: 02/08/2019. This will be for inpatient admission, date of service, date of surgery and date of admission will be 02/08/2019 for a left total knee arthroplasty. The patient will require regular inpatient admission due to pain management, gait abnormalities, need for physical therapy and associated comorbidities. HISTORY OF PRESENT ILLNESS: The patient is a 53-year-old gentleman with longstanding progressive left knee pain. He has undergone treatment with multiple arthroscopies as well as injections and anti-inflammatories. He reports swelling, catching and locking in his knee. He reports activity limitations because of the knee. The patient does have a history of lumbar stenosis. He understands that a knee replacement will not alleviate his lumbar. REVIEW OF SYSTEMS: No chest pain, no shortness of breath and no dysuria. PAST MEDICAL HISTORY: Hypertension, anxiety and leg tremors. PAST SURGICAL HISTORY: Knee arthroscopies. FAMILY HISTORY: Noncontributory. PRIMARY CARE PROVIDER: Dr. Hawkins. MEDICATIONS: Atenolol, losartan, atorvastatin, Breo Ellipta, cyclobenzaprine, duloxetine, pseudoephedrine, Mobic and ProAir. ALLERGIES: MORPHINE. SOCIAL HISTORY: The patient drinks alcohol rarely. Denies tobacco use. RADIOGRAPHS: Revealed complete loss of medial joint space with mild lateral and patellofemoral joint space narrowing. PHYSICAL EXAMINATION: GENERAL: The patient is a well-developed, well-nourished, in no acute distress. HEENT: Normocephalic and atraumatic. Pupils are equal, round and reactive to light. Oropharynx is clear. NECK: Supple, no lymphadenopathy. LUNGS: Clear to auscultation bilaterally. HEART: Regular rate and rhythm. ABDOMEN: Soft, nontender and nondistended. EXTREMITIES: Left knee demonstrates moderate effusion. There is no erythema or warmth. He has varus alignment. He is tender along the medial joint line. He has pain medially with Yumiko. He has patellofemoral crepitus. Negative straight leg raise. He ambulates with a cane. Range of motion is 0/2/130. IMPRESSION: Left knee osteoarthritis, unresponsive to conservative measures. PLAN: Left total knee arthroplasty. The risks, benefits, options, ramifications and recovery were discussed at length with the patient. He understands and wishes to proceed. Job ID: [id number] DocumentID: [id number] Dictated Date: 01/24/2019 14:53:30 Grain Mixer Date: 01/24/2019 15:06:15 Dictated By: RENETTA GÓMEZ MD
--- NOTE | 2019-02-03 16:12 | NUR ---
CALLED [facility] AND HAD A LIST FAXED OVER FROM [facility]. I CALLED THE PATIENT AND WENT OVER IT OVER THE PHONE WITH HIM. [facility] FILLED: 02-01-19 CELEBREX 100MG BID #60 11-17-18 RESTASIS OU BID (STATES NOW INSURANCE IS REQUIRING PA, WORKING ON GETTING IT FIXED) 10-31-18 MOBIC 15MG DAILY #90 (NO LONGER TAKING, CHANGED TO NABUMETONE) [facility] F[facility]: 02-02-19 KEFLEX 500MG TID X 7 DAYS #21 (SHOULD BE FINISHED BEFORE APPOINTMENT) 01-31-19 TRAZODONE 100MG 1/2 TO 1 DAILY #30 (TAKES AT HS) 01-31-19 LYRICA 150MG BID #56 (CHANGED FROM 75MG BID) 01-29-19 MONTELUKAST 10MG DAILY #30 01-23-19 NABUMETONE 500MG BID #60 01-16-19 ZYRTEC 10MG DAILY #30 (TAKES PRN WITH SUDAFED, SOMETIMES GETS A COMBO PRODUCT) 01-05-19 ATENOLOL 50MG DAILY #90 12-30-18 PRAZOSIN 1MG HS #30 (NO LONGER TAKING) 12-20-18 FLEXERIL 10MG TID PRN #60 12-12-18 LIPITOR 40MG DAILY #30 (NO LONGER TAKING) 12-15-18 DULOXETINE 30MG DAILY ALONG WITH 60MG (NO LONGER TAKING) 12-15-18 DULOXETINE 60MG DAILY ALONG WITH 30MG (NO LONGER TAKING) 12-15-18 REXULTI 0.5MG DAILY X 7 DAYS #7 (NO LONGER TAKING) 12-15-18 REXULTI 2MG 1/2 DAILY X 2 WEEK THEN 1 DAILY #30 (NO LONGER TAKING) HE TAKES OTC SUDAFED 30MG BID WITH ZYRTEC NEEDED FOR ALLERGIES - SOMETIMES HE GETS A PRESCRIPTION COMBINATION ANTIHISTAMINE DECONGESTANT WELL IN PLACE OF THE TWO SEPARATE HE STATES HE ALSO USES BREO 100 AND PROAIR NEEDED. I DO NOT SEE THESE RECENTLY FILLED ON THE EXT MED HX OR THE FAX FROM [facility] - HE STATES HE SOMETIMES GETS SAMPLES.
[2019-02-08] VITALS (11 sets, daily range): BP systolic 85–136; BP diastolic 48–76
[~2019-02-08] VITALS: Ht 167.7 cm; Wt 127.0 kg
[~2019-02-08 07:33] MED LIST changes: +ACETAMINOPHEN 325 MG TABLET PO PRN; +CELE100C84 PO; +CETI10TA17 PO; +CYCL1DRO OU; +FEXO1TAB PO; +FLUT1AER IH; +NABU500T PO; +ONDANSETRON 4 MG/2 ML (SDV) Z0FRAN IVP PRN; +PHEN10TA32 PO; +PREG100C PO; +PREG150C PO; +PREG75CA PO; +PSEU-137 PO; +TRAZ-190 PO; +diphenhydrAMINE 50 MG/ML INJ (BENADRYL) IVP PRN; +morphine PCA 100 MG/100 ML BAG IV PRN
[2019-02-08] MEDS ORDERED: CEFUROXIME INJECTION 1,500 MG in WATER (STERILE) FOR INJECTION 15 ML IV ONE (07:45)
[2019-02-08] MEDS ORDERED: INTRA-ARTICULAR IU ONE ×5 (08:00)
[2019-02-08] MEDS: LACTATED RINGERS 1,000 ML IV PRN ×2 (08:14→10:45)
[2019-02-08] MEDS ORDERED: LIDOCAINE PF 2% 5 ML (XYLOCAINE) VIAL ONE (08:24)
[2019-02-08] MEDS ORDERED: BUPIVACAINE 0.25% 30 ML (SENSORCAINE) VIAL ONE (08:24)
[2019-02-08] MEDS ORDERED: fentaNYL INJECTION 100 MCG/2 ML AMP ONE ×2 (08:30→11:24)
[2019-02-08] MEDS ORDERED: MIDAZOLAM 2 MG/2 ML (VERSED) VIAL ONE (08:30)
[2019-02-08] MEDS ORDERED: proPOfol 200 MG/20 ML (DIPRIVAN) VIAL IV ONE (08:32)
[2019-02-08] MEDS ORDERED: DEXAMETHASONE 10 MG/ML (DECADRON) 1 ML VIAL ONE (08:32)
[2019-02-08] MEDS ORDERED: ONDANSETRON 4 MG/2 ML (SDV) Z0FRAN ONE (08:32)
[2019-02-08] MEDS: SENNA W/DOCUSATE (SENOKOT S) TABLET PO SCH ×2 (09:00→21:20)
--- NOTE | 2019-02-08 09:12 | Progress Note-Pre Operative ---
Pre-Operative Progress Note H&P Reviewed The H&P was reviewed, patient examined and no changes noted. Date Seen by Provider: Feb 08, 2019 Time Seen by Provider: 09:11 Date H&P Reviewed: Feb 08, 2019 Time H&P Reviewed: 09:11 Pre-Operative Diagnosis: left knee primary osteoarthritis RENETTA GÓMEZ MD Feb 08, 2019 09:12
--- NOTE | 2019-02-08 09:13 | Progress Note-Post Operative ---
Post-Operative Progess Note Surgeon (s)/Road Cutter (s) Surgeon RENETTA GÓMEZ MD Road Cutter: Conor Corbett Pre-Operative Diagnosis left knee primary osteoarthritis Post-Operative Diagnosis left knee primary osteoarthritis Procedure & Operative Findings Date of Procedure 02/08/19 Procedure Performed/Findings left total knee arthroplasty Anesthesia Type GETA Estimated Blood Loss Estimated blood loss (mL): minimal Specimens/Packing Specimens Removed none Packing: none RENETTA GÓMEZ MD Feb 08, 2019 09:13
[2019-02-08] MEDS ORDERED: OXYC1TAB87 PO (09:14)
--- NOTE | 2019-02-08 09:16 | D/C HH Face to Face Order ---
D/C Face to Face Orders Reconcile Patient Problems Problems Reviewed?: Yes Instructions for Patient [facility], Patient Instructions/FollowUp: three weeks Physician to follow Patient: three weeks Discharge Diet for Home: Regular Diet Patient Data-Allergies,Ht & Wt Patient Allergies: Coded Allergies: No Known Drug Allergies (Unverified , 04/06/18) Height (Feet): 5 Height (Inches): 6.00 Weight (Pounds): 270 Weight (Ounces): 0 Home Health Need/Face to Face Date of Face to Face: Feb 08, 2019 Clinical Findings: Instability, Muscle weakness, Pain with ambulation, Unsteady gait I have seen Pt [id number]: Yes Discharged To: Home Diagnosis/Conditions: left total knee arthroplasty Patient is Homebound due to: Mulu fall risk due to instabilty, Muscle weakness, Pain w/ambulation Homebound Status Due to the above stated illness, injury or surgical procedure (medical condition or diagnosis) and associated clinical findings, the patient is homebound because of his/her inability to leave home except with aid of a supportive device and/or person AND leaving the home requires a considerable and taxing effort or is medically contraindicated. Pt req the following assistanc: Walker Home Health Nursing Orders Home Health Services Order: Physical Therapy-Evaluate & Treat DC left knee jan and apply steristrips 02/22/19 Home Health Infusion Therapy Line Start Date: Feb 08, 2019 Therapy Orders Therapy Orders: Physical Therapy, PT to assess for OT Therapy Specific Orders: Eval assistive deivces, Teach enviro modifications/safety, Gait training, Increase strength/endurance Certify Stmt I certify that this patient is under my care and that I, a nurse practitioner or a physician; a laundry assistant working with me, had a face to face encounter that - meets the physician face to face encounter requirements with this patient as dated. RENETTA GÓMEZ MD Feb 08, 2019 09:16
[2019-02-08] MEDS ORDERED: SEVOFLURANE (ULTANE) 15 ML INHAL SOLN ONE ×4 (09:22→11:01)
[2019-02-08] MEDS ORDERED: FAMOTIDINE 20MG/2ML IV (PEPCID) ONE (09:32)
[2019-02-08] MEDS ORDERED: fentaNYL INJECTION 100 MCG/2 ML AMP IVP ONE (10:15)
[2019-02-08] MEDS ORDERED: HYDROmorphone 2 MG/ML VIAL (DILAUDID) IV ONE (10:15)
[2019-02-08] MEDS ORDERED: MEPERIDINE (DEMEROL) INJ 50 MG/ML IVP ONE (10:15)
[2019-02-08] MEDS ORDERED: ONDANSETRON 4 MG/2 ML (SDV) Z0FRAN IVP PRN (10:15)
--- NOTE | 2019-02-08 13:00 | NUR ---
GAURI CAMEJO admitted to room OR-2, with an admitting diagnosis of POSTOP R TOTAL KNEE, on 02/08/19 from [facility] via BED, accompanied byKAL GRAYSON.GAURI CAMEJO introduced to surroundings, call light, bed controls, phone, TV, temperature control, lights, meal times, smoking policy, visitor policy, side rail policy, bathrooms and showers. Patient Rights given to patient in the handbook. GAURI CAMEJO verbalizes understanding that [facility] is not responsible for the loss or damage to any personal effects or valuables that are kept in the patients posession during their hospitalization. GAURI CAMEJO verbalizes understanding of Interdisciplinary Patient Education. Patient and/or family were informed about the Rapid Response Team and its purpose.
--- NOTE | 2019-02-08 13:06 | Progress Note ---
Standard Progress Note Progress Notes/Assess & Plan Date Seen by a Provider: Feb 08, 2019 Time Seen by a Provider: 13:04 Progress/Assessment & Plan post op check No complaints radiographs--HW well positioned. No fractures LLE--dressing intact. Intact DF and PF of toes and ankle. Intact sensation throughout. 2 plus DP pulse with brisk cap refill s/p LTKA mobilize as able RENETTA GÓMEZ MD Feb 08, 2019 13:05
--- NOTE | 2019-02-08 13:25 | Diagnostic Imaging Report ---
EXAMINATION: Left knee radiographs, 2 views. COMPARISON: None. HISTORY: 53-year-old male, left total knee arthroplasty. FINDINGS: There is a left total knee arthroplasty. The hardware is intact. There are anterior skin jan. Soft tissue gas likely reflects the recent post operative state of the patient. There are limitations of the exam relating to material overlying the patient. There are areas of lucency within the intramedullary cavity of the distal femur and proximal tibia which may be procedurally related. There is no identified fracture. IMPRESSION: Left total knee prosthesis without apparent complication. Dictated by: Dictated on workstation # [id number]
[2019-02-08] MEDS ORDERED: morphine PCA 100 MG/100 ML BAG IV ONE (13:26)
[2019-02-08] MEDS ORDERED: NS IV 1000 ML 1,000 ML ONE (13:27)
[2019-02-08] MEDS: NS IV 1000 ML 1,000 ML IV SCH (13:34)
--- NOTE | 2019-02-08 14:53 | Physical Therapy Evaluation ---
PT Evaluation-General Medical Diagnosis Admission Date Feb 08, 2019 at 07:33 Medical Diagnosis: L TKA Onset Date: Feb 08, 2019 Therapy Diagnosis Therapy Diagnosis: decreased strength, decreased ROM, decreased endurance, abn gait Height/Weight Height (Feet): 5 Height (Inches): 6.00 Weight (Pounds): 270 Weight (Ounces): 0 Precautions Precautions/Isolations: Fall Prevention, Standard Precautions Weight Bear Status Left Lower Extremity: Left Weight Bearing/Tolerated Referral Physician: CHAN Reason for Referral: Evaluation/Treatment, Strengthening, Gait Medical History Pertinent Medical History: Back Injury Additional Medical History 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 3-Wmoyfivemh-bymwxns completes the activity by him/herself with no assistance from a helper. 5-Set-up or Clean-up Assistance-helper sets up or cleans up; patient completes activity. [place] assists only prior to or following the activity. 4-Supervision or Touching Assistance-helper provides verbal cues and/or touching/steadying and/or contact guard assistance as patient completes activity. Assistance may be provided throughout the activity or intermittently. 3-Partial/Moderate Assistance-helper does LESS THAN HALF the effort. [place] lifts, holds or supports trunk or limbs, but provides less than half the effort. 2-Substantial/Maximal Assistance-helper does MORE THAN HALF the effort. [place] lifts or holds trunk or limbs and provides more than half the effort. 0-Ztrlqheyw-lsntow does ALL the effort. Patient does none of the effort to com plete the activity. Or, the assistance of 2 or more helpers is required for the patient to complete the activity. If activity was not attempted, code reason: 7-Patient Refused. 9-Not Applicable-not attempted and the patient did not perform the activity before the current illness, exacerbation or injury. 10-Not Attempted due to Environmental Limitations-(lack of equipment, weather restraints, etc.). 88-Not Attempted due to Medical Conditions or Safety Concerns. Bed Mobility: 6 Transfers (B,C,W/C): 6 Gait: 6 (with a single point cane) Stairs: 6 (with a single point cane) Indoor Mobility (Ambulation): Independent Stairs: Independent Prior Devices Use: Other-see list below Prior Device Use: single point cane, "huri-cane" PT Evaluation-Current Subjective Pt in bed pre-tx. Pt agrees to PT this afternoon. RN reports pt has been up to the bathroom this afternoon and is walking fine. Pt reports 8./10 pain in the L ankle at this time RN & DR are aware. Pt/Family Goals Pt in bed post-tx with CPM set 70(flexion) to -2 (extension). Pt's son present in room at this time. Pt with call light, room phone, and tray table in reach with all needs met at this time. Objective Patient Orientation: Person, Place, Time, Situation Attachments: SCD's, Polar Pack, MONITORING COORDINATOR notified pt needs L ankle SCD. ROM/Strength ROM Lower Extremities L knee flexion 85 degrees L knee extension +5 degrees (lacking TKE) Strength Upper Extremities B/L LE WFL Integumentary/Posture Bowel Incontinence: No Bladder Incontinence: No Sensory Hearing: Functional Sensation Right Lower Extremit: Intact Sensation Left Lower Extremity: Impaired Sensation Lower Extremities Pt has N/T in medial proximal L lower leg Transfers Roll Left to Right (QC): 5 Sit to Lying (QC): 4 (SBA) Lying to Sitting/Side of Bed(Q: 5 Sit to Stand (QC): 5 Gait Does the Patient Walk?: Yes Walk 10 feet (QC): 4 (SBA) Walk 50 ft with 2 Turns(QC): 4 (SBA) Walk 150 ft (QC): 4 (SBA) Distance: 300' Gait Assistive Device: FWW Comments/Gait Description Pt takes short steps and starts with antalgic gait pattern that improves as pt ambulates. Wheelchair Training Does the Pt Use a Wheelchair?: No Balance Sitting Static: Normal Sitting Dynamic: Normal Standing Static: Normal Standing Dynamic: Normal Treatment Pt performed bed mobility, transfer training, skilled ambulation training, education, & LE TKA protocol exercises (AP's, SAQ's, SLR, heel slides, glute sets, quad sets) 1 set of 20 reps. Assessment/Needs Pt martin WB'ing on the surgical LE. Pt uses proper step through gait pattern. Pt has decreased ankle pain as he ambulates. Rehab Potential: Good PT Correction Goals Correction Goals PT Correction Goals Time Frame: Feb 15, 2019 Sit to Lying (QC): 6 Lying-Sitting on Side/Bed(QC): 6 Sit to Stand (QC): 6 Roll Left to Right (QC): 6 Chair/Yvi-da-Xlzzv Xfer(QC): 6 Distance: 500' Walk 10 feet (QC): 6 Walk 50ft with 2 Turns (QC): 6 Walk 150 ft (QC): 6 Gait Assistive Device: FWW, Cane Single Point Does the Pt use WC or Scooter?: No PT Plan Problem List Problem List: Activity Tolerance, Functional Strength, Safety, Balance, Gait, Transfer, Bed Mobility, ROM Treatment/Plan Treatment Plan: Continue Plan of Care Treatment Plan: Bed Mobility, Education, Functional Activity Laura, Functional Strength, Gait, Safety, Therapeutic Exercise, Transfers Frequency: 11 times per week Estimated Hrs Per Day: .25 hour per day Patient and/or Family Agrees t: Yes Safety Risks/Education Patient Education: Gait Training, Transfer Techniques, Correct Positioning, Safety Issues Teaching Recipient: Patient Teaching Methods: Demonstration, Discussion Response to Teaching: Verbalize Understanding, Return Demonstration, Reinforcement Needed Discharge Recommendations Plan Patient will perform bed mobility and transfer training, balance and endurance training, functional strengthening, stair training, gait training, and education, to improve functional mobility and independence at home. Therapy Discharge Recommendati: Other, See Comments (Home with son) Equpiment Recommendations-D/C: Straight Cane, Front Wheeled Walker Time/GCodes Time In: 1353 Time Out: 1426 Total Billed Treatment Time: 33 Total Billed Treatment 1 visit EVL 12' GT 21" PAWEL SNOWDEN PT Feb 08, 2019 14:53
[2019-02-08] MEDS: CEFUROXIME INJECTION 750 MG in WATER (STERILE) FOR INJECTION 10 ML IV SCH (16:40)
--- NOTE | 2019-02-08 20:12 | OPERATIVE REPORT ---
DATE OF SERVICE: PREOPERATIVE DIAGNOSIS: Left knee primary osteoarthritis. POSTOPERATIVE DIAGNOSIS: Left knee primary osteoarthritis. PROCEDURE: Left total knee arthroplasty. SURGEON: Anibal Gómez MD COP BREAKER: Conor Corbett, who assisted throughout the procedure and closed the incision. ANESTHESIA: General endotracheal by Jim Sebastian CRNA. TOURNIQUET TIME: Approximately 70 minutes at 300 mmHg. ESTIMATED BLOOD LOSS: Minimal. DRAINS: None. COMPLICATIONS: None. POSTOPERATIVE PLAN: Routine protocol. The patient was transferred to the recovery room awake and stable condition. MATERIALS: Microport cemented size 4 femur, cemented size 4 tibia with 10 mm insert and a cemented size 32 patellar button. STATEMENT OF MEDICAL NECESSITY: The patient is a 53-year-old gentleman with progressively worsening left knee pain. Radiographs revealed severe medial patellofemoral arthrosis. He had undergone treatment with injections, arthroscopy and anti-inflammatories in the past without relief. Due to functional impairment, the patient elected to proceed with surgical intervention. In addition, the patient had significant lumbar stenosis and understood that a total knee arthroplasty would not alleviate his lumbar symptoms. DESCRIPTION OF PROCEDURE: After risks and benefits of procedure were discussed and questions were answered, an informed consent was signed and placed on chart. The operative site was confirmed in the preoperative holding area initialed by the surgeon. The patient was transferred to the operating room and after adequate levels of general endotracheal anesthetic were obtained, a timeout was called, confirming the operative site. The left lower extremity was prepped and draped in the usual sterile fashion with the leg elevated and the knee flexed, tourniquet inflated to 300 mmHg. Standard anterior approach was utilized. Hemostasis was obtained with cautery. A medial parapatellar arthrotomy was performed leaving 1 cm cuff on the patella for later reattachment. The ACL was resected. Subperiosteal release was performed in the proximal medial tibia being careful to stay on the bony surface. Intramedullary guide was passed into the femur. The distal cutting block was placed and distal cut was made. Femur sized to a size 4. The 4 cutting block was placed parallel to the epicondylar axis and cuts were made from posterior to anterior. The subperiosteal release was then carefully performed on the posterior distal femur, being careful to stay on the bony surface. Intramedullary guide was passed into the tibia. The cutting block was placed and drop lj transected the intermalleolar axis and the cut was made. The four baseplate was placed and the drop lj transected the intermalleolar axis. This was then prepared with a drill and keel punch. The trials were inserted with 10 mm insert. The trochlear cut was made. The patella was then prepared using the freehand technique by resecting 10 mm off the undersurface of the patella. The peg guide was placed and the peg holes were drilled. The 32 trial was placed and the knee was taken through range of motion. Full extension was easily obtained, 120 degrees of flexion with gravity was easily obtained. There was no anterior/posterior or medial/lateral laxity in flexion or extension and the patella tracked well. The trials were removed. The joint was irrigated with pulse lavage. The periarticular block was placed in the posterior capsule, medial and lateral retinaculum extensor mechanism subcutaneous tissues. The joint was further irrigated. The bone ends were irrigated and dried. The tibial baseplate was cemented into position. Superior surface was irrigated and dried. Excessive cement was removed. The insert was placed. The distal femur was irrigated and dried and the femoral prosthesis was cemented into position. Excessive cement was removed. The undersurface of patella was irrigated and dried. The patellar button was cemented into position. Excessive cement was removed. Once the cement had cured, knee was taken through range of motion. Full extension was easily obtained under 20 degrees of flexion with gravity was easily obtained. There was no anterior/posterior or medial/lateral laxity in flexion or extension. The patella tracked well. The joint was further irrigated with pulse lavage. Arthrotomy was closed with #2 Tevdek in zddrwh-st-ioorn interrupted fashion. Knee was flexed. Patella tracked well with no maltracking noted. The subcutaneous tissues were irrigated with pulse lavage. A 0 Vicryl was used for deep subcutaneous tissue, 2-0 Vicryl for the superficial subcutaneous tissue, jan used on the skin. A soft dressing was applied. The patient was transferred to the recovery room after deflating the tourniquet awake and in stable condition. Job ID: [id number] DocumentID: [id number] Dictated Date: 02/08/2019 11:15:24 Manager Drilling Date: 02/08/2019 20:12:03 Dictated By: ANIBAL GÓMEZ MD
--- NOTE | 2019-02-08 20:27 | Consultation - Hospitalist ---
HPI History of Present Illness: HPI/Chief Complaint CC: Left knee replacement in need of medical management HPI: This is a 53[place] of [place] who presents following an uncomplicated Left TKA by Dr. Araiza. I checked him home meds and labs and updated him on my role in his care. Patient does use CPAP and brought it with him and has used it for 6 months and still struggles with it. Friends are the bedside. Pain is mostly in his ankle. Urination normal post op. 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 Source: patient, family Exam Limitations: no limitations Date Seen 02/08/19 Attending Physician Anibal Araiza MD PCP Russell Hawkins MD Referring Physician Date of Admission Feb 08, 2019 at 07:33 Home Medications & Allergies Home Medications Reviewed patient Home Medication Reconciliation performed by pharmacy medication reconciliations can technician and/or nursing. Patients Allergies have been reviewed. Allergies Allergies Coded Allergies No Known Drug Allergies (Ercmhmatay32/19/18) Past Zskbqag-Mmcscf-Pcstyu Hx Past Med/Social Hx: Reviewed Nursing Past Med/Soc Hx, Reviewed and Corrections made Patient Social History Marrital Status: single Employed/Student: retired Alcohol Use: Occasionally Uses Number of Drinks Today: AA Alcohol Beverage of Choice: Beer Recreational Drug Use: No Smoking Status: Former Smoker Former Smoker, Quit: Jan 05, 2016 Type Used: Cigarettes 2nd Hand Smoke Exposure: No Physical Abuse Screen: No Sexual Abuse: No Recent Foreign Travel: No Contact w/other who traveled: No Recent Hopitalizations: No Recent Infectious Disease Expo: No Immunizations Up To Date Date of Pneumonia Vaccine: Jan 13, 2018 Date of Influenza Vaccine: Feb 02, 2019 Seasonal Allergies Seasonal Allergies: Yes Past Medical History Respiratory: Sleep Apnea Currently Using CPAP: Yes Cardiac: High Cholesterol, Hypertension Neurological: Headaches /Migraines Musculoskeletal: Degenerate Disk Disease, Arthritis, Chronic Back Pain HEENT: Cataract, Glaucoma Psychosocial: Anxiety, PTSD, Depression History of Blood Disorders: No Family History Hypertension 19 MOTHER No Pertinent Family Hx Review of Systems Constitutional: see HPI Musculoskeletal: joint pain Physical Exam Physical Exam Vital Signs Vital Signs - First Documented Capillary Refill : Less Than 3 Seconds Height, Weight, BMI Height: 5'6.00" Weight: 270lbs. 0oz. 122.666247vk; 45.15 BMI Method:Actual General Appearance: No Apparent Distress, WD/WN Eyes: Bilateral Eye Normal Inspection, Bilateral Eye PERRL HEENT: PERRL/EOMI, TMs Normal, Normal ENT Inspection, Pharynx Normal Neck: Full Range of Motion, Normal Inspection, Non Tender, Supple, Carotid Bruit Respiratory: Chest Non Tender, Lungs Clear, Normal Breath Sounds, No Accessory Muscle Use, No Respiratory Distress Cardiovascular: Regular Rate, Rhythm, No Edema, No Gallop, No JVD, No Murmur, Normal Peripheral Pulses Gastrointestinal: Normal Bowel Sounds, No Organomegaly, No Pulsatile Mass, Non Tender, Soft Back: Normal Inspection, No CVA Tenderness, No Vertebral Tenderness Extremity: Normal Capillary Refill, Normal Inspection, Normal Range of Motion (except left leg in CPM), Non Tender, No Calf Tenderness, No Pedal Edema Neurologic/Psychiatric: Alert, Oriented x3, No Motor/Sensory Deficits, Normal Mood/Affect Skin: Normal Color, Warm/Dry Lymphatic: No Adenopathy Results Results/Procedures Labs Patient resulted labs reviewed. Assessment/Plan Assessment and Plan Assess & Plan/Chief Complaint Assessment: s/p left knee replacement POD # 0 [place] on CPAP x 6 months HTN HLP Plan: Monitor pain Check labs in am Diagnosis/Problems Diagnosis/Problems (1) Status post total left knee replacement (2) [place] on CPAP (3) Hypertension Clinical Quality Measures DVT/VTE Risk/Contraindication: Risk Factor Score Per Nursin RFS Level Per Nursing on Admit: 4+=Very High AUREA ANTOINE DO Feb 08, 2019 20:27
[2019-02-09 00:38] VITALS: BP 102/68
[2019-02-09 04:51] VITALS: BP 125/79
[2019-02-09] MEDS ORDERED: WATER (STERILE) FOR INJECTION 10 ML ONE (05:05)
[2019-02-09] MEDS ORDERED: CEFUROXIME 750 MG (ZINACEF) VIAL ONE (05:05)
[2019-02-09] MEDS: MULTIVIT W/MINERALS TAB (THERAGRAN M) PO SCH (05:10)
[2019-02-09] MEDS: CEFUROXIME INJECTION 750 MG in WATER (STERILE) FOR INJECTION 10 ML IV SCH (05:11)
[2019-02-09] MEDS: NS IV 1000 ML 1,000 ML IV SCH ×2 (05:12→12:47)
--- NOTE | 2019-02-09 07:21 | Anesthesia-General Post-Op ---
General Patient Condition Mental Status/LOC: Same as Preop Cardiovascular: Satisfactory Nausea/Vomiting: Absent Respiratory: Satisfactory Pain: Controlled Complications: Absent Post Op Complications Complications None Follow Up Care/Instructions Patient Instructions None needed. Anesthesia/Patient Condition Patient Condition Patient is doing well, no complaints, stable vital signs, no apparent adverse anesthesia problems. No complications reported per nursing. WILLAM GOLDSMITH CRNA Feb 09, 2019 07:21
[2019-02-09 07:37] LABS: ALANINE AMINOTRANSFERASE 29 U/L (0-55); ALBUMIN 3.6 GM/DL (3.2-4.5); ALKALINE PHOSPHATASE 67 U/L (40-136); BILIRUBIN,TOTAL 0.4 MG/DL (0.1-1.0); BUN/CREATININE RATIO 13; CALCIUM 8.5 MG/DL (8.5-10.1); CARBON DIOXIDE 22 MMOL/L (21-32); CHLORIDE 105 MMOL/L (98-107); CREATININE SERUM 0.78 MG/DL (0.60-1.30); GFR ESTIMATED > 60; GLUCOSE 126 MG/DL (70-105); POTASSIUM 4.1 MMOL/L (3.6-5.0); SODIUM 139 MMOL/L (135-145); TOTAL PROTEIN 6.1 GM/DL (6.4-8.2)
--- NOTE | 2019-02-09 07:50 | Progress Note ---
Standard Progress Note Progress Notes/Assess & Plan Date Seen by a Provider: Feb 09, 2019 Time Seen by a Provider: 07:49 Progress/Assessment & Plan post op check No complaints radiographs--HW well positioned. No fractures LLE--dressing intact. Intact DF and PF of toes and ankle. Intact sensation throughout. 2 plus DP pulse with brisk cap refill s/p LTKA mobilize as able Final Diagnosis no complaints Vital Signs Date Time Temp Pulse Resp B/P (MAP) Pulse Ox O2 Delivery O2 Flow Rate FiO2 02/09/19 04:51 36.8 95 22 125/79 (94) 97 Room Air 02/09/19 00:38 37.1 87 20 102/68 (79) 96 Room Air 02/08/19 21:00 96 Room Air 3.00 02/08/19 20:30 96 Room Air 3.00 02/08/19 20:00 37.2 92 18 114/70 (85) 94 Room Air 02/08/19 16:00 37.2 85 20 112/70 (84) 93 Room Air 02/08/19 14:15 36.4 18 02/08/19 13:40 36.4 18 02/08/19 12:30 36.2 71 18 107/72 (84) 98 Nasal Cannula 3.00 02/08/19 12:25 98 Nasal Cannula 3.00 02/08/19 12:25 Nasal Cannula 3 02/08/19 12:10 OxyMask 3 02/08/19 12:10 36.5 16 108/74 (85) Nasal Cannula 3 02/08/19 12:00 16 98/73 (81) 97 Nasal Cannula 3 02/08/19 11:55 OxyMask 3 02/08/19 11:50 16 110/76 (87) 92 OxyMask 3 02/08/19 11:40 16 119/56 (77) 94 02/08/19 11:40 OxyMask 3 02/08/19 11:30 16 99/60 (73) 96 OxyMask 10 02/08/19 11:25 OxyMask 10 02/08/19 11:20 16 94/69 (77) 94 OxyMask 94 02/08/19 11:09 36.2 16 85/48 (60) 94 OxyMask 10 02/08/19 11:09 OxyMask 10 I & O0 02/09/19 07:00 Intake Total 4425 ml Balance 4425 ml Laboratory Tests Test 02/09/19 06:59 Range/Units Sodium Level 139 135-145 MMOL/L Potassium Level 4.1 3.6-5.0 MMOL/L Chloride Level 105 98-107 MMOL/L Carbon Dioxide Level 22 21-32 MMOL/L Anion Gap 12 5-14 MMOL/L Blood Urea Nitrogen 10 7-18 MG/DL Creatinine 0.78 0.60-1.30 MG/DL Estimat Glomerular Filtration Rate > 60 BUN/Creatinine Ratio 13 Glucose Level 126 H 70-105 MG/DL Calcium Level 8.5 8.5-10.1 MG/DL Corrected Calcium 8.8 8.5-10.1 MG/DL Total Bilirubin 0.4 0.1-1.0 MG/DL Aspartate Amino Transf (AST/SGOT) 24 5-34 U/L Alanine Aminotransferase (ALT/SGPT) 29 0-55 U/L Alkaline Phosphatase 67 40-136 U/L Total Protein 6.1 L 6.4-8.2 GM/DL Albumin 3.6 3.2-4.5 GM/DL LLE--dressing intact. NVI distally. neg Narendra's s/p LTKA doing well continue PT/OT RENETTA GÓMEZ MD Feb 09, 2019 07:50
[2019-02-09 08:30] VITALS: BP 115/77
--- NOTE | 2019-02-09 09:38 | Physical Therapy Daily Note ---
PT Daily Note-Current Subjective Patient agrees to PT at this time. Reports he has not had a pain pill yet and pain is increasing. Pain Numeric Pain Scale: 8 Location: Left Location Body Site: Knee Pain Description: Acute Mental Status Patient Orientation: Person, Place, Time, Situation Attachments: Polar Pack, IV Transfers SCALE: Activities may be completed with or without assistive devices. 3-Mdfpoubtsi-ybinuzo completes the activity by him/herself with no assistance from a helper. 5-Set-up or Clean-up Assistance-helper sets up or cleans up; patient completes activity. [place] assists only prior to or following the activity. 4-Supervision or Touching Assistance-helper provides verbal cues and/or touching/steadying and/or contact guard assistance as patient completes activity. Assistance may be provided throughout the activity or intermittently. 3-Partial/Moderate Assistance-helper does LESS THAN HALF the effort. [place] lifts, holds or supports trunk or limbs, but provides less than half the effort. 2-Substantial/Maximal Assistance-helper does MORE THAN HALF the effort. [place] lifts or holds trunk or limbs and provides more than half the effort. 7-Lgeilbrbx-qmqdwh does ALL the effort. Patient does none of the effort to complete the activity. Or, the assistance of 2 or more helpers is required for the patient to complete the activity. If activity was not attempted, code reason: 7-Patient Refused. 9-Not Applicable-not attempted and the patient did not perform the activity before the current illness, exacerbation or injury. 10-Not Attempted due to Environmental Limitations-(lack of equipment, weather restraints, etc.). 88-Not Attempted due to Medical Conditions or Safety Concerns. Transfers (B, C, W/C): 6 Roll Left to Right (QC): 6 Sit to Lying (QC): 6 Sit to Stand (QC): 6 Weight Bearing Left Lower Extremity: Left Weight Bearing/Tolerated Gait Training Does the Patient Walk?: Yes Gait: 6 Distance: 300' Walk 10 feet (QC): 6 Walk 50 ft with 2 Turns(QC): 6 Walk 150 ft (QC): 6 Gait Assistive Device: FWW Step through pattern, normal gait. Exercises Supine Ex: Ankle pumps, Quad Set, Heel Slides, Straight leg raise Supine Reps: 10 Assessment Patient demonstrated good strength in all bed level exercises. Able to stand from bed and ambulate without assistance or cues. Set up patient on polar pack and CPM at 70 degrees at conclusion of treatment. PT Caramel Cutter Machine Goals Skilled Nursing Goals PT Skilled Nursing Goals Time Frame: Feb 15, 2019 Sit to Lying (QC): 6 Lying-Sitting on Side/Bed(QC): 6 Sit to Stand (QC): 6 Roll Left to Right (QC): 6 Chair/Kcl-hx-Abxla Xfer(QC): 6 Distance: 500' Walk 10 feet (QC): 6 Walk 50ft with 2 Turns (QC): 6 Walk 150 ft (QC): 6 Gait Assistive Device: FWW, Cane Single Point Does the Pt use WC or Scooter?: No PT Plan Treatment/Plan Treatment Plan: Continue Plan of Care Treatment Plan: Bed Mobility, Education, Functional Activity Laura, Functional Strength, Gait, Safety, Therapeutic Exercise, Transfers Frequency: 11 times per week Estimated Hrs Per Day: .25 hour per day Patient and/or Family Agrees t: Yes Time/GCodes Time In: 845 Time Out: 903 Total Billed Treatment Time: 18 Total Billed Treatment 1 visit FA 18min MAJOR ALONZO PT Feb 09, 2019 09:38
[2019-02-09] MEDS: ASPIRIN E.C. 81 MG (ECOTRIN) TAB PO SCH (09:48)
[2019-02-09] MEDS: oxyCODONE/APAP 5/325MG (PERCOCET 5) TABLET PO PRN ×2 (09:48→18:15)
[2019-02-09] MEDS: ENOXAPARIN 40 MG/0.4 ML (LOVENOX) SYR SC SCH ×2 (09:48→20:16)
[2019-02-09] MEDS: SENNA W/DOCUSATE (SENOKOT S) TABLET PO SCH ×2 (09:48→20:18)
--- NOTE | 2019-02-09 10:19 | NUR ---
IRF Evaluation Order received to evaluate patient for the ARU. Chart review complete and it appears patient is ambulating (300ft, FWW) and transferring with modified independence; therefore, patient does not require intensive therapies, at this time. Thank you for this referral.
--- NOTE | 2019-02-09 10:39 | Progress Note - Hospitalist ---
TENA MONSON MED STUDENT 02/09/19 1039: Subjective HPI/CC On Admission Date Seen by Provider: Feb 09, 2019 Time Seen by Provider: 07:45 CC: Left knee replacement in need of medical management HPI: This is a 53yoWM of [employer] who presents following an uncomplicated Left TKA by Dr. Araiza. I checked him home meds and labs and updated him on my role in his care. Patient does use CPAP and brought it with him and has used it for 6 months and still struggles with it. Friends are the bedside. Pain is mostly in his ankle. Urination normal post op. 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 Review of Systems General: No Chills HEENT: No Head Aches, No Sinus Congestion; Sore Throat (CPAP) Pulmonary: No Dyspnea, No Cough Cardiovascular: Edema (pedal); No: Chest Pain Gastrointestinal: No: Nausea, Vomiting, Abdominal Pain, Diarrhea, Constipation Genitourinary: No Dysuria Musculoskeletal: leg pain (L calf, L knee) Neurological: Numbness (feet, chronic) Objective Exam Vital Signs Vital Signs Date Time Temp Pulse Resp B/P (MAP) Pulse Ox O2 Delivery O2 Flow Rate FiO2 02/09/19 04:51 36.8 95 22 125/79 (94) 97 Room Air 02/08/19 21:00 3.00 Capillary Refill : Less Than 3 Seconds General Appearance: No Apparent Distress, Obese Respiratory: Lungs Clear, Normal Breath Sounds, No Accessory Muscle Use, No Respiratory Distress Cardiovascular: Regular Rate, Rhythm, No Gallop, No Murmur, Normal Peripheral Pulses Extremity: Calf Tenderness (L calf tender, associates with surgery yesterday); No Inflammation; Pedal Edema; No Swelling Neurologic/Psychiatric: Alert, Oriented x3, Normal Mood/Affect Results/Procedures Lab Laboratory Tests 02/09/19 06:59 Patient resulted labs reviewed. Assessment/Plan Assessment and Plan Assess & Plan/Chief Complaint Assessment: 1. s/p Left knee replacement 2. [place] 3. HTN 4. HLP Plan: 1. Monitor knee pain 2. Continue DVT prophylaxis 3. Continue CPAP 4. Continue medications for chronic conditions Clinical Quality Measures DVT/VTE Risk/Contraindication: Risk Factor Score Per Nursin RFS Level Per Nursing on Admit: 4+=Very High ZOE ANTOINE DO 02/09/192104: Subjective Subjective/Events-last exam Pt doing very well. Bowels are moving. Wore his CPAP last night. Needs a pain pill. Going home tomorrow. Reviewed labs. Review of Systems Musculoskeletal: leg pain (L calf, L knee) Objective Exam General Appearance: No Apparent Distress, WD/WN, Chronically ill Respiratory: Chest Non Tender, Lungs Clear, Normal Breath Sounds, No Accessory Muscle Use, No Respiratory Distress Cardiovascular: Regular Rate, Rhythm, No Edema, No Gallop, No JVD, No Murmur, Normal Peripheral Pulses Extremity: Other (limited ROM left) Neurologic/Psychiatric: Alert, Oriented x3, No Motor/Sensory Deficits, Normal Mood/Affect Assessment/Plan Assessment and Plan Assess & Plan/Chief Complaint Check labs in am Diagnosis/Problems Diagnosis/Problems (1) Status post total left knee replacement (2) [place] on CPAP (3) Hypertension (4) Osteoarthritis of left knee Supervisory-Addendum Brief Verification & Attestation Participated in pt care: history, MDM, physical Personally performed: exam, history, MDM, supervision of care Care discussed with: Medical Student Procedures: n/a Results interpretation: Verified all documentation Verification and Attestation of Medical Student E/M Service A medical student performed and documented this service in my presence. I reviewed and verified all information documented by the medical student and made modifications to such information, when appropriate. I personally performed the physical exam and medical decision making. Zoe Antoine, Feb 09, 2019,21:03 TENA MONSON MED STUDENT Feb 09, 2019 10:39 ZOE ANTOINE DO Feb 09, 2019 21:05
[2019-02-09 10:46] LABS: BASOPHILS % (AUTO) 0 % (0-10); EOSINOPHILS % (AUTO) 0 % (0-10); HEMATOCRIT 39 % (40-54); HEMOGLOBIN 12.7 G/DL (13.3-17.7); LYMPHOCYTES # (AUTO) 1.8 X 10^3 (1.0-4.0); LYMPHOCYTES % (AUTO) 10 % (12-44); MEAN CORPUSCULAR HEMOGLOBIN 31 PG (25-34); MEAN CORPUSCULAR HGB CONC 33 G/DL (32-36); MEAN CORPUSCULAR VOLUME 93 FL (80-99); MEAN PLATELET VOLUME 10.3 FL (7.4-10.4); MONOCYTES # (AUTO) 1.4 X 10^3 (0.0-1.0); MONOCYTES % (AUTO) 7 % (0-12); NEUTROPHILS # (AUTO) 15.1 X 10^3 (1.8-7.8); NEUTROPHILS % (AUTO) 83 % (42-75); PLATELET COUNT 274 10^3/uL (130-400); RED CELL DISTRIBUTION WIDTH 13.5 % (10.0-14.5); WHITE BLOOD COUNT 18.3 10^3/uL (4.3-11.0)
[2019-02-09 11:42] LABS: LYMPHOCYTES % (MANUAL) 17 %; MONOCYTES % (MANUAL) 4 %; NEUTROPHILS % (MANUAL) 79 %; RBC MORPH NORMAL
[2019-02-09 12:00] VITALS: BP 122/73
--- NOTE | 2019-02-09 13:51 | Occupational Therapy Eval ---
OT Evaluation-General/PLF Medical Diagnosis Admission Date Feb 08, 2019 at 07:33 Medical Diagnosis: L TKA Onset Date: Feb 08, 2019 Therapy Diagnosis Therapy Diagnosis: decreased functional mobility and ADL function Height/Weight Height (Feet): 5 Height (Inches): 6.00 Weight (Pounds): 270 Weight (Ounces): 0 Precautions Precautions/Isolations: Fall Prevention, Standard Precautions Weight Bear Status Weight Bearing Restriction: Weight Bearing/Tolerated Location Restriction: L LE Referral Physician: CHAN Referral Reason: Activity Tolerance, Self Care, Evaluation/Treatment, Strengthening/ROM Medical History Pertinent Medical History: Back Injury Current History L TKA Reviewed History: Yes Social History Home: Single Level Current Living Status: Children (Pt has a son that is at home 75% of the time with pt to help and help around the house.) Entry Into Home: Ramp (pt has 2 steps but has a new ramp that goes around stairs.), Level Entry Steps Into Home: 0 Steps Inside Home: 0 Pt has 3 sons who are going to be assisting in I/ADL activities during rehabilitation ADL-Prior Level of Function SCALE: Activities may be completed with or without assistive devices. 4-Dozumnwrqa-xynypyz completes the activity by him/herself with no assistance from a helper. 5-Set-up or Clean-up Assistance-helper sets up or cleans up; patient completes activity. [place] assists only prior to or following the activity. 4-Supervision or Touching Assistance-helper provides verbal cues and/or touching/steadying and/or contact guard assistance as patient completes activity. Assistance may be provided throughout the activity or intermittently. 3-Partial/Moderate Assistance-helper does LESS THAN HALF the effort. [place] lifts, holds or supports trunk or limbs, but provides less than half the effort. 2-Substantial/Maximal Assistance-helper does MORE THAN HALF the effort. [place] lifts or holds trunk or limbs and provides more than half the effort. 9-Wrkepkblj-lvsptp does ALL the effort. Patient does none of the effort to complete the activity. Or, the assistance of 2 or more helpers is required for the patient to complete the activity. If activity was not attempted, code reason: 7-Patient Refused. 9-Not Applicable-not attempted and the patient did not perform the activity before the current illness, exacerbation or injury. 10-Not Attempted due to Environmental Limitations-(lack of equipment, weather restraints, etc.). 88-Not Attempted due to Medical Conditions or Safety Concerns. Self Care: Independent Functional Cognition: Independent DME/Equipment: Grab Bars Pt was IND with functional ambulation with cane prior to TKA Occupation: disabled Drive Self: Yes OT Current Status Subjective Pt states minimal pain in L knee. Pt agreeable to OT evaluation, seen in recliner chair. Current Glasses/Contacts: Yes Hearing Aids: No Dentures/Partials: No Hand Dominance: Right Upper Extremity ROM WFL BUE Upper Extremity Coordination impaired: BUE pt states pinched nerve in back creating tinging/ numbness in B hands; pt states total numbness within ulnar distribution area within L hand Upper Extremity Sensation impaired; see above Upper Extremity Strength WFL BUE ADL-Treatment Eating (QC): 6 On/Off Footwear (QC): 3 Other Treatments Pt c/o numbness in BUE, pt expresses concerns of health; pt hopeful that TKA will improve health and overall abilities. Pt completes sit to stand with SBA, good dynamic standing balance. Pt attempts sock don/ doffing- requires mod A to complete. Pt educated on AE for LB dressing; pt expresses disinterest in AE stating that sons will be home throughout remission and they will assist with dressing if needed. Pt expresses he has no difficulties getting on/ off toilet, based on sit to stand pt will be SUP for toilet transfers. Pt educated on therapy recommendations of shower bench within tub shower and adaptations within the home. Pt expresses understanding of DME/ AE, agrees he does not require acute OT, and expresses sons will assist at home. Pt left in chair with call light in reach, all needs met. Education OT Patient Education: Correct positioning, Disease process, Modified ADL techniques, Safety issues, Transfer techniques, Use of adapted equipment Teaching Recipient: Patient Teaching Methods: Demonstration, Discussion Response to Teaching: Verbalize Understanding, Return Demonstration OT Short Term Goals Short Term Goals 1=Demonstrate adherence to instructed precautions during ADL tasks. 2=Patient will verbalize/demonstrate understanding of assistive devices/modifications for ADL. 3=Patient will improve strength/tolerance for activity to enable patient to perform ADL's. OT Correction Goals Correction Goals 1=Demonstrate adherence to instructed precautions during ADL tasks. 2=Patient will verbalize/demonstrate understanding of assistive devices/modifications for ADL. 3=Patient will improve strength/tolerance for activity to enable patient to perform ADL's. OT Education/Plan Problem List/Assessment Assessment: No Skilled OT Needs ID'd Discharge Recommendations Plan/Recommendations: Discontinue OT Equpiment Recommendations-D/C: Extended Bath Bench Treatment Plan/Plan of Care Treatment,Training & Education: Yes D/c OT services. Pt demonstrates abilities to complete basic ADL activities with assist from children. Pt states understanding of DME recommendations. Treatment Duration: Feb 09, 2019 Estimated Hrs Per Day: Other (1 eval, d/c.) Time/GCodes Start Time: 13:00 Stop Time: 13:15 Total Time Billed (hr/min): 15 Billed Treatment Time 1 EVL (15) HEDY BOLTON OTR Feb 09, 2019 13:51
--- NOTE | 2019-02-09 13:56 | Physical Therapy Daily Note ---
PT Daily Note-Current Subjective Patient agrees to PT at this time before eating lunch. He is sitting up in chair and states he does not want to return to CPM at conclusion of treatment. Patient reports he fell asleep on the machine earlier and his leg fell off the bed. Pain Numeric Pain Scale: 8 Location: Left Location Body Site: Knee Pain Description: Acute Mental Status Patient Orientation: Person, Place, Time, Situation Attachments: IV Transfers SCALE: Activities may be completed with or without assistive devices. 6-Pkwwhulwfr-fghfobr completes the activity by him/herself with no assistance from a helper. 5-Set-up or Clean-up Assistance-helper sets up or cleans up; patient completes activity. [place] assists only prior to or following the activity. 4-Supervision or Touching Assistance-helper provides verbal cues and/or touching/steadying and/or contact guard assistance as patient completes activity. Assistance may be provided throughout the activity or intermittently. 3-Partial/Moderate Assistance-helper does LESS THAN HALF the effort. [place] lifts, holds or supports trunk or limbs, but provides less than half the effort. 2-Substantial/Maximal Assistance-helper does MORE THAN HALF the effort. [place] lifts or holds trunk or limbs and provides more than half the effort. 0-Pkiietahf-hkjbzt does ALL the effort. Patient does none of the effort to complete the activity. Or, the assistance of 2 or more helpers is required for the patient to complete the activity. If activity was not attempted, code reason: 7-Patient Refused. 9-Not Applicable-not attempted and the patient did not perform the activity before the current illness, exacerbation or injury. 10-Not Attempted due to Environmental Limitations-(lack of equipment, weather restraints, etc.). 88-Not Attempted due to Medical Conditions or Safety Concerns. Transfers (B, C, W/C): 6 Sit to Stand (QC): 6 Weight Bearing Left Lower Extremity: Left Weight Bearing/Tolerated Gait Training Does the Patient Walk?: Yes Gait: 6 Distance: 400' Walk 10 feet (QC): 6 Walk 50 ft with 2 Turns(QC): 6 Walk 150 ft (QC): 6 Gait Assistive Device: FWW Normal step through pattern and pace, required 3 short standing rests during walk Exercises Seated Therapy Exercises: Ankle pumps, Long arc quads, Hip flexion Seated Reps: 10 Assessment Patient able to independently rise from chair and prepare for walking. Patient ambulates with normal gait pattern and pace but required 3 short standing rest breaks during ambulation to rest LLE due to soreness and pain. Patient returned to chair with polar pack on knee at conclusion of treatment. PT Air Analysis Engineering Technician Goals Halfway Goals PT Halfway Goals Time Frame: Feb 15, 2019 Sit to Lying (QC): 6 Lying-Sitting on Side/Bed(QC): 6 Sit to Stand (QC): 6 Roll Left to Right (QC): 6 Chair/Jno-rh-Xfoha Xfer(QC): 6 Distance: 500' Walk 10 feet (QC): 6 Walk 50ft with 2 Turns (QC): 6 Walk 150 ft (QC): 6 Gait Assistive Device: FWW, Cane Single Point Does the Pt use WC or Scooter?: No PT Plan Treatment/Plan Treatment Plan: Continue Plan of Care Treatment Plan: Bed Mobility, Education, Functional Activity Laura, Functional Strength, Gait, Safety, Therapeutic Exercise, Transfers Frequency: 11 times per week Estimated Hrs Per Day: .25 hour per day Patient and/or Family Agrees t: Yes Time/GCodes Time In: 1315 Time Out: 1325 Total Billed Treatment Time: 10 Total Billed Treatment 1 visit FA 10min MAJOR ALONZO PT Feb 09, 2019 13:56
--- NOTE | 2019-02-09 14:00 | NUR ---
NO INFORMATION WAS GIVEN BY THE TECH ON I&OS BEFORE SHE WENT HOME
--- NOTE | 2019-02-09 15:47 | NUR ---
CM/SS spoke with patient for discharge planning. Patient will likely discharge 02/10 and with [facility]. Patient has [facility] [employer] and is not in network with [facility] and [facility]. [facility] has the patient's information and is reviewing. Patient will need a FWW order at discharge also and he would like to continuous pickling line pickler helper the FWW from the DME on way home.
--- NOTE | 2019-02-09 16:15 | NUR ---
CM/[facility] will start with the patient on Sunday 02/11, they will need the finalized discharge sent.
[2019-02-09 16:47] VITALS: BP 112/57
--- NOTE | 2019-02-09 18:08 | NUR ---
NO i & O INFORMATION WAS GIVEN BY TECH BEFORE SHE WENT HOME
[2019-02-09] MEDS ORDERED: CALCIUM CARBONATE 500 MG (TUMS) TAB.CHEW PO PRN (18:30)
[2019-02-09] MEDS ORDERED: CYCLOBENZAPRINE 10 MG (FLEXERIL) TAB PO PRN (19:30)
[2019-02-09 19:33] VITALS: BP 147/90
[2019-02-10] VITALS: BP 171/87
[2019-02-10] MEDS: NS IV 1000 ML 1,000 ML IV SCH (02:08)
[2019-02-10 04:00] VITALS: BP 164/84
--- NOTE | 2019-02-10 04:59 | DISCHARGE SUMMARY ---
DATE OF SERVICE: DIAGNOSES: 1. Left knee primary osteoarthritis 2. Hypertension. 3. Anxiety. PROCEDURE: Left total knee arthroplasty. SUMMARY: The patient is a 53-year-old gentleman who underwent a left total knee arthroplasty on the day of admission. Postoperatively, he did very well. At the time of discharge, his wound was clean and dry and no calf tenderness. Negative Homans sign. He was tolerating diet well and tolerating pain with oral pain medication. CONDITION AT DISCHARGE: Good. DISCHARGE DIET: Regular. FOLLOWUP: Followup is in three weeks. Home physical therapy has been arranged. DISCHARGE MEDICATIONS: Home medications, aspirin and Percocet as needed for pain. ACTIVITIES: Weightbearing as tolerated with a walker. Job ID: [id number] DocumentID: [id number] Dictated Date: 02/09/2019 17:12:08 Boom Pump Operator Date: 02/10/2019 04:58:35 Dictated By: RENETTA GÓMEZ MD
[2019-02-10 05:16] LABS: BASOPHILS % (AUTO) 0 % (0-10); EOSINOPHILS # (AUTO) 0.1 10^3/uL (0.0-0.3); EOSINOPHILS % (AUTO) 1 % (0-10); HEMATOCRIT 38 % (40-54); HEMOGLOBIN 12.5 G/DL (13.3-17.7); LYMPHOCYTES # (AUTO) 3.4 X 10^3 (1.0-4.0); LYMPHOCYTES % (AUTO) 29 % (12-44); MEAN CORPUSCULAR HEMOGLOBIN 31 PG (25-34); MEAN CORPUSCULAR HGB CONC 33 G/DL (32-36); MEAN CORPUSCULAR VOLUME 92 FL (80-99); MEAN PLATELET VOLUME 9.7 FL (7.4-10.4); MONOCYTES # (AUTO) 1.2 X 10^3 (0.0-1.0); MONOCYTES % (AUTO) 11 % (0-12); NEUTROPHILS # (AUTO) 6.8 X 10^3 (1.8-7.8); NEUTROPHILS % (AUTO) 59 % (42-75); PLATELET COUNT 253 10^3/uL (130-400); RED CELL DISTRIBUTION WIDTH 13.5 % (10.0-14.5); WHITE BLOOD COUNT 11.5 10^3/uL (4.3-11.0)
[2019-02-10 05:45] LABS: ALANINE AMINOTRANSFERASE 30 U/L (0-55); ALBUMIN 3.6 GM/DL (3.2-4.5); ALKALINE PHOSPHATASE 74 U/L (40-136); BILIRUBIN,TOTAL 0.6 MG/DL (0.1-1.0); BUN/CREATININE RATIO 14; CALCIUM 8.1 MG/DL (8.5-10.1); CARBON DIOXIDE 23 MMOL/L (21-32); CHLORIDE 106 MMOL/L (98-107); GFR ESTIMATED > 60; GLUCOSE 108 MG/DL (70-105); POTASSIUM 3.8 MMOL/L (3.6-5.0); SODIUM 139 MMOL/L (135-145); TOTAL PROTEIN 5.9 GM/DL (6.4-8.2)
[2019-02-10] MEDS: MULTIVIT W/MINERALS TAB (THERAGRAN M) PO SCH (06:03)
--- NOTE | 2019-02-10 06:58 | Progress Note ---
Standard Progress Note Progress Notes/Assess & Plan Date Seen by a Provider: Feb 10, 2019 Time Seen by a Provider: 06:56 Progress/Assessment & Plan post op check No complaints radiographs--HW well positioned. No fractures LLE--dressing intact. Intact DF and PF of toes and ankle. Intact sensation throughout. 2 plus DP pulse with brisk cap refill s/p LTKA mobilize as able Final Diagnosis patient reports that his LLE fell out of CPM yesterday. still able to ambulate Vital Signs Date Time Temp Pulse Resp B/P (MAP) Pulse Ox O2 Delivery O2 Flow Rate FiO2 02/10/19 04:00 37.1 86 18 164/84 (110) 95 Room Air 02/10/19 00:00 37.5 88 18 171/87 (115) 95 Room Air 02/09/19 20:00 Room Air 02/09/19 19:33 37.2 92 22 147/90 (109) 98 Room Air 02/09/19 16:47 37.5 87 20 112/57 (75) 95 Room Air 02/09/19 12:00 37.0 87 20 122/73 (89) 100 Room Air 02/09/19 09:00 97 Room Air 02/09/19 08:30 36.7 90 18 115/77 (90) 94 Room Air I & O 02/10/19 07:00 Intake Total 2080 ml Output Total 375 ml Balance 1705 ml Laboratory Tests Test 02/09/19 06:59 02/10/19 04:50 Range/Units White Blood Count 18.3 H 11.5 H 4.3-11.0 10^3/uL Red Blood Count 4.15 L 4.08 L 4.35-5.85 10^6/uL Hemoglobin 12.7 L 12.5 L 13.3-17.7 G/DL Hematocrit 39 L 38 L 40-54 % Mean Corpuscular Volume 93 92 80-99 FL Mean Corpuscular Hemoglobin 31 31 25-34 PG Mean Corpuscular Hemoglobin Concent 33 33 32-36 G/DL Red Cell Distribution Width 13.5 13.5 10.0-14.5 % Platelet Count 274 253 130-400 10^3/uL Mean Platelet Volume 10.3 9.7 7.4-10.4 FL Neutrophils (%) (Auto) 83 H 59 42-75 % Lymphocytes (%) (Auto) 10 L 29 12-44 % Monocytes (%) (Auto) 7 11 0-12 % Eosinophils (%) (Auto) 0 1 0-10 % Basophils (%) (Auto) 0 0 0-10 % Neutrophils # (Auto) 15.1 H 6.8 1.8-7.8 X 10^3 Lymphocytes # (Auto) 1.8 3.4 1.0-4.0 X 10^3 Monocytes # (Auto) 1.4 H 1.2 H 0.0-1.0 X 10^3 Eosinophils # (Auto) 0.0 0.1 0.0-0.3 10^3/uL Basophils # (Auto) 0.0 0.0 0.0-0.1 10^3/uL Neutrophils % (Manual) 79 % Lymphocytes % (Manual) 17 % Monocytes % (Manual) 4 % Blood Morphology Comment NORMAL Sodium Level 139 139 135-145 MMOL/L Potassium Level 4.1 3.8 3.6-5.0 MMOL/L Chloride Level 105 106 98-107 MMOL/L Carbon Dioxide Level 22 23 21-32 MMOL/L Anion Gap 12 10 5-14 MMOL/L Blood Urea Nitrogen 10 11 7-18 MG/DL Creatinine 0.78 0.80 0.60-1.30 MG/DL Estimat Glomerular Filtration Rate > 60 > 60 BUN/Creatinine Ratio 13 14 Glucose Level 126 H 108 H 70-105 MG/DL Calcium Level 8.5 8.1 L 8.5-10.1 MG/DL Corrected Calcium 8.8 8.4 L 8.5-10.1 MG/DL Total Bilirubin 0.4 0.6 0.1-1.0 MG/DL Aspartate Amino Transf (AST/SGOT) 24 22 5-34 U/L Alanine Aminotransferase (ALT/SGPT) 29 30 0-55 U/L Alkaline Phosphatase 67 74 40-136 U/L Total Protein 6.1 L 5.9 L 6.4-8.2 GM/DL Albumin 3.6 3.6 3.2-4.5 GM/DL LLE--incision clean and dry. No calf tenderness. Able to perform SLR with min assist. flexion to 60. patella tracks well. no varus or valgus laxity. Neg ant and posterior drawer s/p LTKA doing well PT today then DC home RENETTA GÓMEZ MD Feb 10, 2019 06:58
[2019-02-10] MEDS ORDERED: morphine INJ 4 MG/ML 1 ML (VIAL/SYRINGE) IVP PRN (07:00)
[2019-02-10 08:00] VITALS: BP 141/82
[2019-02-10] MEDS: ENOXAPARIN 40 MG/0.4 ML (LOVENOX) SYR SC SCH (08:49)
[2019-02-10] MEDS: SENNA W/DOCUSATE (SENOKOT S) TABLET PO SCH ×2 (08:50→08:52)
[2019-02-10] MEDS: ASPIRIN E.C. 81 MG (ECOTRIN) TAB PO SCH (08:50)
[2019-02-10] MEDS: oxyCODONE/APAP 5/325MG (PERCOCET 5) TABLET PO PRN (08:50)
--- NOTE | 2019-02-10 09:00 | NUR ---
DC'd pt's morphine CONFORMAL PAD FORMER. Wasted 90mL's of morphine with Coreen Oh, RN
--- NOTE | 2019-02-10 09:35 | Physical Therapy Daily Note ---
PT Daily Note-Current Subjective Patient reluctantly agrees to PT at this time. States that he is in severe pain, rating at "1000/10" and states it has been a long time since having pain pill. Patient is anxious to get IV out. Pain Numeric Pain Scale: 10-Worst Possible Pain Location: Left Location Body Site: Knee Pain Description: Acute Mental Status Patient Orientation: Person, Place, Time, Situation Attachments: IV Transfers SCALE: Activities may be completed with or without assistive devices. 2-Sgupqliasu-vypvnsa completes the activity by him/herself with no assistance from a helper. 5-Set-up or Clean-up Assistance-helper sets up or cleans up; patient completes activity. Donie assists only prior to or following the activity. 4-Supervision or Touching Assistance-helper provides verbal cues and/or touching/steadying and/or contact guard assistance as patient completes activity. Assistance may be provided throughout the activity or intermittently. 3-Partial/Moderate Assistance-helper does LESS THAN HALF the effort. Donie lifts, holds or supports trunk or limbs, but provides less than half the effort. 2-Substantial/Maximal Assistance-helper does MORE THAN HALF the effort. Donie lifts or holds trunk or limbs and provides more than half the effort. 3-Ujnivjaqg-vszvhz does ALL the effort. Patient does none of the effort to complete the activity. Or, the assistance of 2 or more helpers is required for the patient to complete the activity. If activity was not attempted, code reason: 7-Patient Refused. 9-Not Applicable-not attempted and the patient did not perform the activity before the current illness, exacerbation or injury. 10-Not Attempted due to Environmental Limitations-(lack of equipment, weather restraints, etc.). 88-Not Attempted due to Medical Conditions or Safety Concerns. Transfers (B, C, W/C): 6 Roll Left to Right (QC): 6 Sit to Stand (QC): 6 Weight Bearing Left Lower Extremity: Left Weight Bearing/Tolerated Gait Training Does the Patient Walk?: Yes Gait: 6 Distance: 150' Walk 10 feet (QC): 6 Walk 50 ft with 2 Turns(QC): 6 Walk 150 ft (QC): 6 Gait Assistive Device: FWW Antalgic gait, reluctant to fully weight bear on LLE and walks on ball of foot on L, UE support on walker Exercises Supine Ex: Ankle pumps, Quad Set, Heel Slides, Straight leg raise Supine Reps: 10 Assessment Patient able to transfer, toilet, and dress with assistance only to manage IV pole and clear room for movement. Patient unable to ambulate as far as previously performed and walked with antalgic gait and unequal weight bearing, only walking on the ball of the L foot. Patient limited self due to severe pain. RN was notified of patient pain and request for pain pill. Sat patient in chair with feet down at conclusion of treatment. PT Pipe Line Gauger Goals Mcc Goals PT Pipe Line Gauger Goals Time Frame: Feb 15, 2019 Sit to Lying (QC): 6 Lying-Sitting on Side/Bed(QC): 6 Sit to Stand (QC): 6 Roll Left to Right (QC): 6 Chair/Cin-tt-Aoxvu Xfer(QC): 6 Distance: 500' Walk 10 feet (QC): 6 Walk 50ft with 2 Turns (QC): 6 Walk 150 ft (QC): 6 Gait Assistive Device: FWW, Cane Single Point Does the Pt use WC or Scooter?: No PT Plan Treatment/Plan Treatment Plan: Discontinue PT, goals met Treatment Plan: Bed Mobility, Education, Functional Activity Laura, Functional Strength, Gait, Safety, Therapeutic Exercise, Transfers Frequency: 11 times per week Estimated Hrs Per Day: .25 hour per day Patient and/or Family Agrees t: Yes Time/GCodes Time In: 824 Time Out: 842 Total Billed Treatment Time: 18 Total Billed Treatment 1 visit FA 18min MAJOR ALONZO PT Feb 10, 2019 09:35
--- NOTE | 2019-02-10 10:18 | NUR ---
CM DISCHARGE: Patient is dismissing to home today with [facility] for PT and OT. Finalized D/C orders, summary, and med list faxed to [phone] at this time. He has his script for a FWW et does not have any other identified needs at this time. No further interventions noted.
--- NOTE | 2019-02-10 11:03 | Progress Note - Hospitalist ---
TENA MONSON MED STUDENT 02/10/19 1103: Subjective HPI/CC On Admission Date Seen by Provider: Feb 10, 2019 Time Seen by Provider: 08:30 CC: Left knee replacement in need of medical management HPI: This is a 53yoWM of [facility] who presents following an uncomplicated Left TKA by Dr. Araiza. I checked him home meds and labs and updated him on my role in his care. Patient does use CPAP and brought it with him and has used it for 6 months and still struggles with it. Friends are the bedside. Pain is mostly in his ankle. Urination normal post op. Retired [employer] 23 years. Subjective/Events-last exam CC: s/p left knee replacement * Discharged to home this morning * Knee pain worse today than yesterday, pain will be managed with aspirin and Percocet prn * Otherwise only complaint is a sore throat, attributes to allergies, CPAP. No congestion, cough, fever. * WBC 18 yesterday, today it has dropped to 11.5 * Hct 12.5, Hgb 38, creatinine 0.8 * HR 86, RR 18, BP 164/84 Review of Systems General: No Chills HEENT: No Head Aches, No Sinus Congestion; Sore Throat Pulmonary: No Dyspnea, No Cough Cardiovascular: No: Chest Pain, Edema Gastrointestinal: No: Abdominal Pain, Diarrhea, Constipation Genitourinary: No Dysuria, No Frequency Musculoskeletal: leg pain (L knee) Neurological: No: Numbness Objective Exam Vital Signs Vital Signs Date Time Temp Pulse Resp B/P (MAP) Pulse Ox O2 Delivery O2 Flow Rate FiO2 02/10/19 09:00 97 Room Air 02/10/19 08:00 36.9 90 20 141/82 (101) 02/08/19 21:00 3.00 Capillary Refill : Less Than 3 Seconds General Appearance: Anxious (knee pain, waiting on medication), Obese Respiratory: Lungs Clear, Normal Breath Sounds, No Accessory Muscle Use, No Respiratory Distress Cardiovascular: Regular Rate, Rhythm, No Edema, No Gallop, No Murmur, Normal Peripheral Pulses Extremity: Non Tender, No Calf Tenderness, No Pedal Edema Neurologic/Psychiatric: Alert, Oriented x3, Normal Mood/Affect Results/Procedures Lab Laboratory Tests 02/10/19 04:50 Patient resulted labs reviewed. Assessment/Plan Assessment and Plan Assess & Plan/Chief Complaint Assessment: 1. s/p Left knee replacement 2. increased WBC - decreased to slightly above normal 3. [place] 4. HTN 5. HLP Plan: 1. Discharge home 2. Continue CPAP 3. Continue medications for chronic conditions Clinical Quality Measures DVT/VTE Risk/Contraindication: Risk Factor Score Per Nursin RFS Level Per Nursing on Admit: 4+=Very High ZOE ANTOINE DO 02/10/19 1134: Subjective Subjective/Events-last exam Patient ready to go home Bowels are moving Pain is controlled White count down to near normal at 11 from 18 Objective Exam General Appearance: No Apparent Distress, WD/WN Respiratory: Lungs Clear Cardiovascular: Regular Rate, Rhythm Neurologic/Psychiatric: Alert, Oriented x3, No Motor/Sensory Deficits, Normal Mood/Affect Assessment/Plan Assessment and Plan Assess & Plan/Chief Complaint Discharge home Supervisory-Addendum Brief Verification & Attestation Participated in pt care: history, MDM, physical Personally performed: exam, history, MDM, supervision of care Care discussed with: Medical Student Procedures: n/a Results interpretation: Verified all documentation Verification and Attestation of Medical Student E/M Service A medical student performed and documented this service in my presence. I reviewed and verified all information documented by the medical student and made modifications to such information, when appropriate. I personally performed the physical exam and medical decision making. Zoe Antoine, Feb 10, 2019,11:34 TENA MONSON MED STUDENT Feb 10, 2019 11:03 ZOE ANTOINE DO Feb 10, 2019 11:34
== END 2019-02-10 10:30 | disposition home health service (06) | DRG 470 ==
LOC: 4TH 07:33 → SURG 07:34 → 4TH 12:25
PROVIDERS: ADMIT Orthopaedic Surgery; ATTEND Orthopaedic Surgery
PROC: 0SRD0J9 Replacement of Left Knee Joint with Synthetic Substitute, Cemented, Open Approach (ICD-10-PCS; principal; 2019-02-08 09:28)
DX: M17.12 Unilateral primary osteoarthritis, left knee (principal); G47.33 Obstructive sleep apnea (adult) (pediatric); I10 Essential (primary) hypertension; E78.5 Hyperlipidemia, unspecified; E78.00 Pure hypercholesterolemia, unspecified; D72.829 Elevated white blood cell count, unspecified; G43.909 Migraine, unspecified, not intractable, without status migrainosus; F41.9 Anxiety disorder, unspecified; F43.10 Post-traumatic stress disorder, unspecified; F32.9 Major depressive disorder, single episode, unspecified; H40.9 Unspecified glaucoma; H26.9 Unspecified cataract; R25.1 Tremor, unspecified; M48.061 Spinal stenosis, lumbar region without neurogenic claudication; Z87.891 Personal history of nicotine dependence; Z88.5 Allergy status to narcotic agent
CPT/HCPCS: 36415; 73560; 80053; 85007; 85025; 85027; 86850; 86900; 86901; 94664

== ENCOUNTER 2019-04-03 13:25 | Outpatient (RCR) | payer MEDICAID ==
[~2019-04-03 13:25] MED LIST changes: -ACETAMINOPHEN 325 MG TABLET PO PRN; -ONDANSETRON 4 MG/2 ML (SDV) Z0FRAN IVP PRN; +OXYC1TAB87 PO; -diphenhydrAMINE 50 MG/ML INJ (BENADRYL) IVP PRN; -morphine PCA 100 MG/100 ML BAG IV PRN
== END 2019-04-20 14:51 | disposition home or self-care (01) ==
PROVIDERS: ATTEND Orthopaedic Surgery
DX: Z47.1 Aftercare following joint replacement surgery (principal); Z96.652 Presence of left artificial knee joint

== ENCOUNTER → 2021-12-23 | Outpatient (CLI) | payer MEDICARE, MEDICAID ==
[~2021-12-23] VITALS: Ht 167.6 cm; Wt 150.6 kg
[~2021-12-23] MED LIST changes: +ALPR.25T PO; -ALPR0.254 PO; +ATOR40TA PO; +BREX2TAB PO; +CYCL10TA25 PO; -CYCL10TA9 PO; +DIVA-76 PO; -FOLI1TAB24 PO; +FOLI1TAB33 PO; +NABU-95 PO; -NABU500T PO; +NABU500T8 PO; -NABU750T PO; +PROP10DR4 OP; -PSEU-137 PO; +PSEU-182 PO; -SULF1TAB35 PO; +SULF1TAB38 PO; -TRAZ-190 PO; +TRAZ-227 PO; +VORT20TA PO
[2021-12-23 13:26] LABS: BASOPHILS # (AUTO) 0.1 10^3/uL (0.0-0.1); BASOPHILS % (AUTO) 1 % (0-10); BILIRUBIN,URINE NEGATIVE (NEGATIVE); CLARITY,URINE CLEAR; COLOR,URINE ORANGE; EOSINOPHILS # (AUTO) 0.1 10^3/uL (0.0-0.3); EOSINOPHILS % (AUTO) 2 % (0-10); GLUCOSE, URINE (UA) NEGATIVE (NEGATIVE); HEMATOCRIT 48 % (40-54); HEMOGLOBIN 15.8 g/dL (13.3-17.7); KETONES,URINE TRACE (NEGATIVE); LEUKOCYTE ESTERASE ,URINE NEGATIVE (NEGATIVE); LYMPHOCYTES # (AUTO) 2.8 10^3/uL (1.0-4.0); LYMPHOCYTES % (AUTO) 39 % (12-44); MEAN CORPUSCULAR HEMOGLOBIN 30 pg (25-34); MEAN CORPUSCULAR HGB CONC 33 g/dL (32-36); MEAN CORPUSCULAR VOLUME 92 fL (80-99); MEAN PLATELET VOLUME 10.7 fL (9.0-12.2); MONOCYTES # (AUTO) 0.6 10^3/uL (0.0-1.0); MONOCYTES % (AUTO) 9 % (0-12); NEUTROPHILS # (AUTO) 3.4 10^3/uL (1.8-7.8); NEUTROPHILS % (AUTO) 49 % (42-75); NITRITE,URINE NEGATIVE (NEGATIVE); PLATELET COUNT 240 10^3/uL (130-400); PROTEIN,URINE NEGATIVE (NEGATIVE)
[2021-12-23 13:33] LABS: BACTERIA,URINE TRACE /HPF; SQUAMOUS EPITHELIAL CELL,UR 0-2 /HPF; WBC,URINE RARE /HPF
[2021-12-23 13:41] LABS: PROTHROMBIN TIME PATIENT 13.7 SEC (12.2-14.7)
[2021-12-23 13:52] LABS: ALBUMIN 3.7 GM/DL (3.2-4.5); BILIRUBIN,TOTAL 0.7 MG/DL (0.1-1.0); CREATININE SERUM 0.81 MG/DL (0.60-1.30); TOTAL PROTEIN 6.9 GM/DL (6.4-8.2)
[2021-12-23 14:11] LABS: ERYTHROCYTE SEDIMENTATION RATE 4 MM/HR (0-30)
--- NOTE | 2021-12-23 15:39 | Diagnostic Imaging Report ---
INDICATION: Preop, history of asthma PA and lateral chest obtained at 1:02 p.m. and compared to 02/02/2019. Heart and mediastinal silhouette are normal in appearance. The lungs are clear. There is no pneumothorax or pleural fluid. IMPRESSION: Negative chest. Dictated by: Dictated on workstation # [id number]
== END ==
LOC: PREOP 11:43
PROVIDERS: ATTEND Orthopaedic Surgery
DX: Z01.812 Encounter for preprocedural laboratory examination (principal); Z01.810 Encounter for preprocedural cardiovascular examination; M17.11 Unilateral primary osteoarthritis, right knee; Z87.09 Personal history of other diseases of the respiratory system
CPT/HCPCS: 36415; 71046; 80053; 81000; 85025; 85610; 85652; 86850; 86900; 86901; 87081; 93005

== ENCOUNTER 2021-12-31 05:45 | Inpatient (IN) | payer MEDICARE, MEDICAID ==
--- NOTE | 2021-12-19 21:21 | HISTORY AND PHYSICAL ---
DATE OF SERVICE: INPATIENT ADMISSION DATE OF ADMISSION: 12/31/2021. This will be for inpatient admission on 12/31/2021 for right total knee arthroplasty. The patient will require regular inpatient admission due to associated medical problems, need for physical therapy and need for pain management. HISTORY OF PRESENT ILLNESS: The patient is a 56-year-old gentleman with longstanding progressive right knee pain. Radiographs reveal complete medial and patellofemoral joint space narrowing. He has tried rest, activity modifications, and anti-inflammatories without relief. He has also undergone arthroscopy. He reports a constant dull aching pain on the medial aspect of his knee. He denies radicular symptoms. He ambulates with a cane partly due to a lumbar issue, but also because of his knee. Due to progressive symptoms and failure to improve with the conservative measures, the patient elected to proceed with surgical intervention. REVIEW OF SYSTEMS: No chest pain, no shortness of breath, and no dysuria. PAST MEDICAL HISTORY: Hypertension, anxiety, leg tremors, asthma, back pain, COPD, neck pain, and chronic pain. PAST SURGICAL HISTORY: Right knee arthroscopy, left knee arthroscopy, left total knee arthroplasty, left shoulder arthroscopy, and right foot surgery. FAMILY HISTORY: Noncontributory. PRIMARY CARE PROVIDER: [facility]. MEDICATIONS: Losartan, divalproex, cyclobenzaprine, atorvastatin, nabumetone, Breo Ellipta, atenolol, Singulair, Restasis, Trintellix, ProAir, promethazine, cyclobenzaprine, Rexulti, and pregabalin. ALLERGIES: TETANUS and MORPHINE. SOCIAL HISTORY: The patient drinks alcohol rarely. Denies tobacco use. PHYSICAL EXAMINATION: GENERAL: The patient is well-developed, well-nourished, and in no acute distress. HEENT: Normocephalic and atraumatic. Pupils are equal, round and reactive to light. Oropharynx is clear. NECK: Supple and no lymphadenopathy. LUNGS: Clear to auscultation bilaterally. HEART: Regular rate and rhythm. ABDOMEN: Soft, nontender, and nondistended. EXTREMITIES: The right knee demonstrates varus alignment. No skin lesions noted. He has negative straight leg raise. He has a moderate effusion. Range of motion is 0/3/125. He is tender along his medial femoral condyle and has pain medially with Yumiko's. No varus or valgus laxity. Negative anterior and posterior drawer. IMPRESSION: Severe right knee osteoarthritis, unresponsive to conservative measures. PLAN: Right total knee arthroplasty. The risks, benefits, options, ramifications, and recovery have been discussed at length with the patient. He understands and wishes to proceed. Job ID: [id number] DocumentID: [id number] Dictated Date: 12/15/2021 10:24:41 Net Fisher Date: 12/15/2021 10:51:37 Dictated By: RENETTA GÓMEZ MD
[~2021-12-31] VITALS: Ht 167.6 cm; Wt 156.5 kg
[2021-12-31] VITALS (14 sets, daily range): BP systolic 88–152; BP diastolic 55–94
[2021-12-31] MEDS ORDERED: CEFUROXIME INJECTION 1,500 MG in NS (IVPB) 50 ML IV ONE (06:15)
[2021-12-31] MEDS: LACTATED RINGERS 1,000 ML IV PRN ×2 (06:33→08:10)
[2021-12-31] MEDS ORDERED: ROPIVACAINE 5MG/ML 30ML VIAL ONE (06:56)
[2021-12-31] MEDS ORDERED: MIDAZOLAM 2 MG/2 ML (VERSED) VIAL ONE (06:56)
[2021-12-31] MEDS ORDERED: LIDOCAINE PF 2% 5 ML (XYLOCAINE) VIAL ONE (06:57)
[2021-12-31] MEDS ORDERED: fentaNYL PCA 1,000 MCG/100 ML IV SCH (07:15)
[2021-12-31] MEDS ORDERED: diphenhydrAMINE 50 MG/ML INJ (BENADRYL) IVP PRN (07:15)
[2021-12-31] MEDS ORDERED: ONDANSETRON 4 MG/2 ML (SDV) Z0FRAN IVP PRN ×2 (07:15→09:30)
[2021-12-31] MEDS ORDERED: fentaNYL INJ 100 MCG/2 ML AMP ONE (07:24)
[2021-12-31] MEDS ORDERED: SEVOFLURANE (ULTANE) 15 ML INHAL SOLN ONE (07:24)
[2021-12-31] MEDS ORDERED: proPOfol 200 MG/20 ML (DIPRIVAN) VIAL IV ONE ×2 (07:24→07:27)
[2021-12-31] MEDS ORDERED: LOSA25TA41 PO (07:25)
[2021-12-31] MEDS ORDERED: TRANEXAMIC ACID 100 MG/ML 10 ML INJECTION ONE (07:28)
--- NOTE | 2021-12-31 07:30 | Progress Note-Post Operative ---
Post-Operative Progess Note Surgeon (s)/Benefits Analyst (s) Surgeon RENETTA GÓMEZ MD Benefits Analyst: Conor Corbett Pre-Operative Diagnosis right knee primary osteoarthritis Post-Operative Diagnosis right knee primary osteoarthritis Procedure & Operative Findings Date of Procedure 12/31/21 Procedure Performed/Findings right total knee arthroplasty Anesthesia Type GETA Estimated Blood Loss Estimated blood loss (mL): minimal Specimens/Packing Specimens Removed none Packing: none RENETTA GÓMEZ MD Dec 31, 2021 07:30
--- NOTE | 2021-12-31 07:30 | Progress Note-Pre Operative ---
Pre-Operative Progress Note Date of Available H&P: Dec 31, 2021 Date H&P Reviewed: Dec 31, 2021 Time H&P Reviewed: 07:11 Changes from last HP none Pre-Operative Diagnosis: right knee primary osteoarthritis RENETTA GÓMEZ MD Dec 31, 2021 07:30
--- NOTE | 2021-12-31 07:32 | D/C HH Face to Face Order ---
D/C Face to Face Orders Reconcile Patient Problems Problems Reviewed?: Yes Instructions for Patient Via [employer], Patient Instructions/FollowUp: three weeks Physician to follow Patient: three weeks Discharge Diet for Home: Regular Diet Patient Data-Allergies,Ht & Wt Patient Allergies: Coded Allergies: Tetanus Vaccines and Toxoid (Verified Allergy, Unknown, 12/31/21) morphine (Verified Allergy, Unknown, Itching, 12/31/21) Height (Feet): 5 Height (Inches): 6.00 Weight (Pounds): 270 Weight (Ounces): 0 Home Health Need/Face to Face Date of Face to Face: Dec 31, 2021 Clinical Findings: Muscle weakness, Pain with ambulation, Unsteady gait I have seen Pt cotr-gx-triz: Yes Discharged To: Home Diagnosis/Conditions: right total knee arthroplasty Patient is Homebound due to: Muscle weakness, Pain w/ambulation Homebound Status Due to the above stated illness, injury or surgical procedure (medical condition or diagnosis) and associated clinical findings, the patient is homebound because of his/her inability to leave home except with aid of a supp ortive device and/or person AND leaving the home requires a considerable and taxing effort or is medically contraindicated. Pt req the following assistanc: Walker Home Health Nursing Orders Home Health Services Order: Physical Therapy-Evaluate & Treat DC right knee jan and apply steri strips 01/14/22 Home Health Infusion Therapy Line Start Date: Dec 31, 2021 Therapy Orders Therapy Orders: Physical Therapy, PT to assess for OT Therapy Specific Orders: Eval assistive deivces, Teach enviro modifications/safety, Gait training, Increase strength/endurance, Provider maintenance therapy, Restore ROM Certify Stmt I certify that this patient is under my care and that I, a nurse practitioner or a physician; a sales assistant entertainment and media working with me, had a face to face encounter that - meets the physician face to face encounter requirements with this patient as tamie ed. RENETTA GÓMEZ MD Dec 31, 2021 07:32
[2021-12-31] MEDS ORDERED: INTRA-ARTICULAR IU ONE ×5 (07:45)
--- NOTE | 2021-12-31 09:18 | Anesthesia-General Post-Op ---
General Patient Condition Mental Status/LOC: Same as Preop Cardiovascular: Satisfactory Nausea/Vomiting: Absent Respiratory: Satisfactory Pain: Controlled Complications: Absent Post Op Complications Complications None Follow Up Care/Instructions Patient Instructions None needed. Anesthesia/Patient Condition Patient Condition Patient is doing well, no complaints, stable vital signs, no apparent adverse anesthesia problems. No complications reported per nursing. RANDY TERRY CRNA Dec 31, 2021 09:18
[2021-12-31] MEDS ORDERED: MEPERIDINE (DEMEROL) INJ 50 MG/ML IVP ONE (09:30)
[2021-12-31] MEDS ORDERED: fentaNYL INJ 100 MCG/2 ML AMP IVP ONE (09:30)
--- NOTE | 2021-12-31 10:54 | Progress Note ---
Standard Progress Note Progress Notes/Assess & Plan Date Seen by a Provider: Dec 31, 2021 Time Seen by a Provider: 09:20 Progress/Assessment & Plan post op check no complaints readiographs--HW well positioned without fracture RLE--intact DF and PF of toes and ankle intact snesation to light touch throughout brisk cap refill with 2 plus DP pulse s/p R TKA mobilize as able RENETTA GÓMEZ MD Dec 31, 2021 10:54
[2021-12-31] MEDS: SENNA W/DOCUSATE (SENOKOT S) TABLET PO SCH ×2 (10:58→19:37)
[2021-12-31] MEDS: NS IV 1000 ML 1,000 ML IV SCH (10:59)
[2021-12-31] MEDS: oxyCODONE/APAP 5/325MG (PERCOCET 5) TABLET PO PRN (11:04)
--- NOTE | 2021-12-31 11:43 | Diagnostic Imaging Report ---
INDICATION: Postop, right knee pain. FINDINGS: Two views. Total arthroplasty of the right knee. Components are in good alignment. No fractures are seen. Skin jan are present. IMPRESSION: Satisfactory appearing arthroplasty, right knee. Dictated by: Dictated on workstation # [id number]
--- NOTE | 2021-12-31 11:55 | Consultation ---
HPI History of Present Illness: 56 yo admitted after right knee replacement. Denies any current concerns. Admits he gets short of breath at times which he relates to weight gain in the last 4-6 months. He does not use supplemental oxygen at baseline. Source: patient Date seen by provider: Dec 31, 2021 Time Seen by Provider: 11:51 Attending Physician Russell Hawkins MD PCP Admitting Physician: Anibal Araiza MD Attending Physician: Anibal Araiza MD Consult Date of Admission Dec 31, 2021 at 05:45 Home Medications Home Medications Reviewed patient Home Medication Reconciliation performed by pharmacy medication reconciliations line technician and/or nursing. Patients Allergies have been reviewed. Allergies Coded Allergies: Tetanus Vaccines and Toxoid (Verified Allergy, Unknown, 12/31/21) morphine (Verified Allergy, Unknown, Itching, 12/31/21) ONU-Dfroln-Sfoxso Hx Patient Social History Smoking Status: Former Smoker (quit smoking 2014, smoked 14 years less than a ppd) 2nd Hand Smoke Exposure: No Recent Hopitalizations: No Alcohol Use?: Yes (occasional) Have you traveled recently?: No Immunizations Up To Date Influenza Vaccine Up-to-Date: Yes; Up-to-Date First/Initial COVID19 Vaccinat: Nov 2021 COVID19 Vaccine Combine Driver: [place] Past Medical History PMHx: HTN Depression Chronic pain Anxiety Asthma Osteoarthritis/degenerative disc disease Spinal stenosis Glaucoma Macular degeneration PSurgHx: Left knee replacement Multiple knee scopes Left shoulder scope Right knee replacement Family Medical History Family History: Hypertension 19 MOTHER Review of Systems ([facility]) Constitutional: No fever EENTM: No nose congestion Respiratory: No cough; short of breath Cardiovascular: No chest pain Gastrointestinal: No abdominal pain, No constipation, No diarrhea, No nausea, No vomiting Genitourinary: No dysuria, No hesitancy Musculoskeletal: joint pain Psychiatric/Neurological: Depressed Physical Exam-([facility]) Physical Exam Vital Signs VS - Last 72 Hours, by Label 12/31/21 12/31/21 12/31/21 12/31/21 06:15 06:15 08:00 09:13 Temp 37.0 36.4 Pulse 76 74 Resp 20 20 B/P (MAP) 137/94 (108) 152/67 (95) Pulse Ox 95 95 95 O2 Delivery Room Air Room Air Nasal Cannula OxyMask O2 Flow Rate 2.00 6.00 9/14/22 9/14/22 9/14/22 9/14/22 09:13 09:24 09:30 09:32 Temp 36.2 Resp 16 18 20 B/P (MAP) 88/61 (70) 95/58 (70) 109/66 (80) Pulse Ox 93 97 98 O2 Delivery OxyMask OxyMask OxyMask OxyMask O2 Flow Rate 6.00 6.00 4.00 4.00 12/31/21 12/31/21 12/31/21 12/31/21 09:40 09:45 09:50 10:00 Resp 18 20 18 B/P (MAP) 107/83 (91) 107/83 (91) 123/87 (99) Pulse Ox 93 96 95 O2 Delivery Nasal Cannula OxyMask Nasal Cannula Nasal Cannula O2 Flow Rate 2.00 2.00 2.00 2.00 12/31/21 12/31/21 12/31/21 12/31/21 10:00 10:10 10:15 10:22 Temp 36.5 Resp 16 16 B/P (MAP) 97/55 (69) 109/85 (93) Pulse Ox 94 94 O2 Delivery Nasal Cannula Nasal Cannula Nasal Cannula Nasal Cannula O2 Flow Rate 2.00 2.00 2.00 2.00 12/31/21 12/31/21 12/31/21 12/31/21 10:22 10:52 11:10 11:15 Temp 36.4 36.3 Pulse 74 70 Resp 20 20 B/P (MAP) 152/67 (95) 130/75 (93) Pulse Ox 95 96 O2 Delivery Room Air Nasal Cannula Nasal Cannula Nasal Cannula O2 Flow Rate 2.00 2.00 2.00 12/31/21 11:40 Pulse Ox 95 O2 Delivery Nasal Cannula O2 Flow Rate 2.00 Capillary Refill : General Appearance: no apparent distress Respiratory: lungs clear, normal breath sounds Cardiovascular: regular rate, rhythm, no murmur Gastrointestinal: non tender, soft Extremities: no pedal edema Neurologic/Psychiatric: alert, normal mood/affect Skin: normal color, warm/dry Assessment/Plan Assessment/Plan (1) Status post right knee replacement Status: Acute Assessment & Plan: Management per Dr. Araiza. (2) Postoperative hypoxia Status: Acute Assessment & Plan: Encourage IS, mobilization as directed by Dr. Araiza. (3) Depression Status: Chronic Assessment & Plan: Resume home medications. Qualifiers: (4) Chronic pain Status: Chronic (5) Anxiety Status: Chronic Assessment & Plan: Resume home medications (6) Hypertension Status: Chronic Assessment & Plan: Resume home medications Qualifiers: Qualified Codes: I10 - Essential (primary) hypertension (7) [place] on CPAP Assessment & Plan: Brought home CPAP, encourage use DEVI MARSHALL MD Dec 31, 2021 11:55
[2021-12-31] MEDS ORDERED: LOSA50TA63 PO (13:35)
[2021-12-31] MEDS ORDERED: CYCL10TA25 PO (13:41)
[2021-12-31] MEDS ORDERED: BREX2TAB PO (13:41)
[2021-12-31] MEDS ORDERED: RT-ALBUTEROL SULF 2.5 MG/3 ML PRE-MIX VIAL IH PRN (13:45)
--- NOTE | 2021-12-31 14:05 | Physical Therapy Evaluation ---
PT Evaluation-General Medical Diagnosis Admission Date Dec 31, 2021 at 05:45 Medical Diagnosis: right TKA Onset Date: Dec 31, 2021 Therapy Diagnosis Therapy Diagnosis: impaired mobility, ROM Height/Weight Height (Feet): 5 Height (Inches): 6.00 Weight (Pounds): 270 Weight (Ounces): 0 Weight Bear Status Right Lower Extremity: Right Weight Bearing/Tolerated Referral Physician: Aric Reason for Referral: Evaluation/Treatment Medical History Pertinent Medical History: Back Injury Additional Medical History PAST MEDICAL HISTORY: Hypertension, anxiety, leg tremors, asthma, back pain, COPD, neck pain, and chronic pain. PAST SURGICAL HISTORY: Right knee arthroscopy, left knee arthroscopy, left total knee arthroplasty, left shoulder arthroscopy, and right foot surgery. Reviewed History: Yes Social History Current Living Status: Alone Entry Into Home: Ramp Prior Prior Level of Function SCALE: Activities may be completed with or without assistive devices. 0-Wspioitxyy-kwdlrli completes the activity by him/herself with no assistance from a helper. 5-Set-up or Clean-up Assistance-helper sets up or cleans up; patient completes activity. [place] assists only prior to or following the activity. 4-Supervision or Touching Assistance-helper provides verbal cues and/or touching/steadying and/or contact guard assistance as patient completes activity. Assistance may be provided throughout the activity or intermittently. 3-Partial/Moderate Assistance-helper does LESS THAN HALF the effort. [place] lifts, holds or supports trunk or limbs, but provides less than half the effort. 2-Substantial/Maximal Assistance-helper does MORE THAN HALF the effort. [place] lifts or holds trunk or limbs and provides more than half the effort. 1-Esxvzffdc-zcrkfj does ALL the effort. Patient does none of the effort to complete the activity. Or, the assistance of 2 or more helpers is required for the patient to complete the activity. If activity was not attempted, code reason: 7-Patient Refused. 9-Not Applicable-not attempted and the patient did not perform the activity before the current illness, exacerbation or injury. 10-Not Attempted due to Environmental Limitations-(lack of equipment, weather restraints, etc.). 88-Not Attempted due to Medical Conditions or Safety Concerns. Bed Mobility: 6 Transfers (B,C,W/C): 6 Gait: 6 Stairs: 6 Indoor Mobility (Ambulation): Independent Stairs: Independent Patient states he used a single point cane on occasion. PT Evaluation-Current Subjective Patient in bed pre tx, agrees to PT, has 6/10 pain in right knee Pt/Family Goals to be independent at home Objective Patient Orientation: Person, Place, Situation Attachments: IV ROM/Strength ROM Lower Extremities right knee extension +3 degrees, flexion 70 degrees Sensory Vision: Wears Glasses Hearing: Functional Sensation Right Lower Extremit: Intact Sensation Left Lower Extremity: Intact Transfers Roll Left to Right (QC): 4 Sit to Lying (QC): 4 Lying to Sitting/Side of Bed(Q: 4 Sit to Stand (QC): 4 SBA for supine <-> sit, SBA for sit <-> stand, cues for hand placement and safety Gait Does the Patient Walk?: Yes Mode of Locomotion: Walk Anticipated Mode of Locomotion: Walk Walk 10 feet (QC): 4 Walk 50 ft with 2 Turns(QC): 4 Walk 150 ft (QC): 4 Distance: 200' Gait Assistive Device: FWW Comments/Gait Description SBA, slow, antalgic, patient states he has some popping with every step in the right knee and it feels like one of his legs is longer than the other Balance Sitting Static: Normal Sitting Dynamic: Normal Standing Static: Good Standing Dynamic: Good Treatment RLE total knee protocol x10 (AP, QS, HS, SAQ, SLR) Assessment/Needs Patient in bed post tx with nurse call, phone, tray, all needs met. Patient SBA for transfers and ambulation. Rehab Potential: Fair PT Snf Goals Banquet Coordinator Goals PT Snf Goals Time Frame: Jan 07, 2022 Roll Left & Right (QC): 6 Sit to Lying (QC): 6 Lying-Sitting on Side/Bed(QC): 6 Sit to Stand (QC): 6 Chair/Zoh-ve-Onucl Xfer(QC): 6 Walk 10 feet (QC): 6 Walk 50ft with 2 Turns (QC): 6 Walk 150 ft (QC): 6 PT Plan Problem List Problem List: Activity Tolerance, Functional Strength, Safety, Balance, Gait, Transfer, Bed Mobility, ROM Treatment/Plan Treatment Plan: Continue Plan of Care Treatment Plan: Bed Mobility, Education, Functional Activity Laura, Functional Strength, Gait, Safety, Therapeutic Exercise, Transfers Treatment Duration: Jan 07, 2022 Frequency: 11 times per week Estimated Hrs Per Day: .25 hour per day Patient and/or Family Agrees t: Yes Safety Risks/Education Patient Education: Gait Training, Transfer Techniques, Correct Positioning, Safety Issues Teaching Recipient: Patient Teaching Methods: Demonstration, Discussion Response to Teaching: Reinforcement Needed Discharge Recommendations Plan Patient will perform bed mobility and transfer training, balance and endurance training, functional strengthening, stair training, gait training, and education, to improve functional mobility and independence at home. Therapy Discharge Recommendati: Home & Family, Post Acute PT Time/GCodes Time In: 1312 Time Out: 1329 Total Billed Treatment Time: 17 Total Billed Treatment 1 visit EVL PAWEL OTTO PT Dec 31, 2021 14:05
--- NOTE | 2021-12-31 14:54 | OPERATIVE REPORT ---
DATE OF SERVICE: PREOPERATIVE DIAGNOSIS: Right knee primary osteoarthritis. POSTOPERATIVE DIAGNOSIS: Right knee primary osteoarthritis. PROCEDURE: Right total knee arthroplasty. SURGEON: Anibal Gómez MD DIRECTOR OF RESIDENCE LIFE: Conor Corbett, who assisted throughout the procedure and closed the incision. ANESTHESIA: General endotracheal by Jim Sebastian CRNA. TOURNIQUET TIME: Approximately 60 minutes at 300 mmHg. ESTIMATED BLOOD LOSS: Minimal. DRAINS: None. COMPLICATIONS: None. POSTOPERATIVE PLAN: Routine protocol. MATERIALS: Microport cemented size 4 femur, cemented size 4 tibia with 10 mm insert and cemented size 32 patellar button. STATEMENT OF MEDICAL NECESSITY: The patient is a 56-year-old gentleman who previously underwent left total knee arthroplasty, but reported progressively worsening right knee pain. Radiographs reveal complete loss of medial and patellofemoral joint spaces. He has undergone treatment with injections, rest, activity modifications, physical therapy and arthroscopy without relief. Due to functional impairment and failure to improve with conservative measures, the patient elected to proceed with surgical intervention. DESCRIPTION OF PROCEDURE: After risks and benefits of procedure were discussed and questions were answered, an informed consent was signed and placed on chart, the operative site was confirmed in the preoperative holding area initialed by the surgeon. The patient was then transferred to the operating room and after adequate levels of general endotracheal anesthetic were obtained, a timeout was called, confirming the operative site. The right lower extremity was prepped and draped in the usual sterile fashion with the leg elevated and the knee flexed, tourniquet was inflated to 300 mmHg. Standard anterior approach was utilized. Hemostasis was obtained with cautery. Medial parapatellar arthrotomy was performed leaving 1 cm cuff on the patella for later reattachment. A portion of the fat pad was resected. A subperiosteal release was performed in the proximal medial tibia. The ACL was resected. The intramedullary guide was passed into the femoral canal. The distal cutting block was placed. Distal cut was made, the femur sized to a size 4. The 4-in-1 cutting block was placed parallel to the epicondylar axis and the cuts were made from posterior to anterior. Subperiosteal release was then carefully performed on both posterior distal femur, being careful to stay on the bony surface. Intramedullary guide was then passed into the tibial canal. A cutting block was placed. The drop lj transected the intermalleolar axis and the cut was made. The four baseplate was pinned into position and again the drop lj transected the intermalleolar axis. This was then prepared with the drill and keel punch. The femoral trial was placed, and trochlear cut was made. A 10 mm insert was placed. The knee was brought out into full extension and the patella was prepared by resecting 10 mm off the undersurface. Peg guide was placed, and peg holes were drilled. The 32 trial was placed. Knee was taken through range of motion. Full extension was easily obtained degrees of flexion with gravity was easily obtained. There was no anterior/posterior or medial/lateral laxity in flexion or extension. The patella tracked well. The trials were removed. The joint was irrigated with pulse lavage. The periarticular block was placed in the posterior capsule, medial and lateral retinaculum, extensor mechanism, and subcutaneous tissue. The bone ends were irrigated and dried. Tibial baseplate was cemented into position. Excessive cement was removed. Superior surface was irrigated and dried and the polyethylene insert was placed. Distal femur was irrigated and dried and the femoral prosthesis was cemented into position. Excessive cement was removed. The knee was brought out into full extension until cement had cured. The undersurface of the patella was irrigated and dried. The patellar button was cemented into position. Excessive cement was removed. Once the cement had cured, the knee was taken through range of motion. Full extension was easily obtained degrees of flexion with gravity was easily obtained, the patella tracked well. There was no anterior/posterior or medial/lateral laxity in flexion or extension. The joint was further irrigated. The arthrotomy was closed with #2 Tevdek in syvdpr-vu-cvbth interrupted fashion. Knee was then flexed, and the repair was stable. The patella tracked well. Subcutaneous tissues were irrigated using a total of 6 liters of pulse lavage throughout the procedure. A 0 Vicryl was used for deep subcutaneous tissue, 2-0 Vicryl for the superficial subcutaneous tissue, jan used on the skin. A soft dressing was applied. The tourniquet was deflated. The patient was transferred to the recovery room awake and in stable condition. Job ID: [id number] DocumentID: [id number] Dictated Date: 12/31/2021 09:17:47 Integration Software Engineer Date: 12/31/2021 14:53:55 Dictated By: ANIBAL GÓMEZ MD
[2021-12-31] MEDS ORDERED: PROP15DR OU (14:57)
[2021-12-31] MEDS ORDERED: LORA10TA7 PO (14:57)
[2021-12-31] MEDS ORDERED: PREG300C19 PO (14:57)
[2021-12-31] MEDS: CEFUROXIME INJECTION 750 MG in NS (IVPB) 50 ML IV SCH (15:26)
[2021-12-31] MEDS ORDERED: PATIENT MAY USE OWN MED,SINGLE MED PO SCH (18:45)
[2021-12-31] MEDS: PREGABALIN 150 MG (LYRICA) CAPSULE PO SCH (19:37)
[2021-12-31] MEDS: CYCLOBENZAPRINE 10 MG (FLEXERIL) TAB PO SCH (19:37)
[2021-12-31] MEDS: MONTELUKAST 10 MG (SINGULAIR) TAB PO SCH (19:37)
[2021-12-31] MEDS: DIVALPROEX 250 MG DELAYED RELEASE (DEPAKOTE) TAB PO SCH (19:37)
[2021-12-31] MEDS ORDERED: NON-FORMULARY MEDICATION 1 EA EA (Nabumetone 500 MG) PO SCH (21:00)
[2021-12-31] MEDS ORDERED: NON-FORMULARY MEDICATION 1 EA EA (Divalproex Sodium 500 MG) PO SCH (21:00)
[2021-12-31] MEDS ORDERED: RX-CYCLOBENZAPRINE 10 MG (FLEXERIL) TAB PPK#3 PO SCH (21:00)
[2022-01-01] VITALS (7 sets, daily range): BP systolic 113–152; BP diastolic 66–83
[2022-01-01] MEDS: NS IV 1000 ML 1,000 ML IV SCH ×3 (00:04→12:55)
[2022-01-01] MEDS: CEFUROXIME INJECTION 750 MG in NS (IVPB) 50 ML IV SCH (00:04)
[2022-01-01] MEDS: oxyCODONE/APAP 5/325MG (PERCOCET 5) TABLET PO PRN ×3 (00:08→12:55)
[2022-01-01 06:00] LABS: HEMOGLOBIN 13.2 g/dL (13.3-17.7)
--- NOTE | 2022-01-01 07:41 | Progress Note ---
Standard Progress Note Progress Notes/Assess & Plan Date Seen by a Provider: Jan 01, 2022 Time Seen by a Provider: 07:40 Progress/Assessment & Plan post op check no complaints readiographs--HW well positioned without fracture RLE--intact DF and PF of toes and ankle intact snesation to light touch throughout brisk cap refill with 2 plus DP pulse s/p R TKA mobilize as able Final Diagnosis no complaints Vital Signs Date Time Temp Pulse Resp B/P (MAP) Pulse Ox O2 Delivery O2 Flow Rate FiO2 01/01/22 05:38 18 01/01/22 04:07 36.9 80 20 152/78 (102) 95 Nasal Cannula 2.00 01/01/22 03:23 92 Nasal Cannula 3.00 01/01/22 00:18 36.6 81 18 113/72 (86) 94 Nasal Cannula 2.00 12/31/21 22:24 95 Nasal Cannula 3.00 12/31/21 19:40 Room Air 12/31/21 19:10 93 Nasal Cannula 2.00 12/31/21 19:00 36.6 88 18 110/56 (74) 93 Nasal Cannula 2.00 12/31/21 15:20 37.1 88 18 110/59 (76) 97 Nasal Cannula 2.00 12/31/21 14:49 95 Nasal Cannula 2.00 12/31/21 11:40 95 Nasal Cannula 2.00 12/31/21 11:15 36.3 70 20 130/75 (93) 96 Nasal Cannula 2.00 12/31/21 11:10 Nasal Cannula 2.00 12/31/21 10:52 36.4 74 20 152/67 (95) 95 Nasal Cannula 2.00 12/31/21 10:22 Room Air 12/31/21 10:22 Nasal Cannula 2.00 12/31/21 10:15 36.5 16 109/85 (93) 94 Nasal Cannula 2.00 12/31/21 10:10 16 97/55 (69) 94 Nasal Cannula 2.00 12/31/21 10:00 Nasal Cannula 2.00 12/31/21 10:00 18 123/87 (99) 95 Nasal Cannula 2.00 12/31/21 09:50 20 107/83 (91) 96 Nasal Cannula 2.00 12/31/21 09:45 OxyMask 2.00 12/31/21 09:40 18 107/83 (91) 93 Nasal Cannula 2.00 12/31/21 09:32 OxyMask 4.00 12/31/21 09:30 20 109/66 (80) 98 OxyMask 4.00 12/31/21 09:24 18 95/58 (70) 97 OxyMask 6.00 12/31/21 09:13 36.2 16 88/61 (70) 93 OxyMask 6.00 12/31/21 09:13 OxyMask 6.00 12/31/21 08:00 36.4 74 20 152/67 (95) 95 Nasal Cannula 2.00 I & O 01/01/22 07:00 Intake Total 4365 ml Balance 4365 ml Laboratory Tests Test 01/01/22 05:25 Range/Units Hemoglobin 13.2 L 13.3-17.7 g/dL Hematocrit 40 40-54 % RLE--dressing intact no calf tenderness, Neg Narendra's NVI distally s/p RTKA PT/OT RENETTA GÓMEZ MD Jan 01, 2022 07:41
[2022-01-01] MEDS ORDERED: ENOXAPARIN INJECTION 30 MG/0.3 ML SYR SC SCH (08:00)
[2022-01-01] MEDS: SENNA W/DOCUSATE (SENOKOT S) TABLET PO SCH ×2 (08:21→20:26)
[2022-01-01] MEDS: DIVALPROEX 250 MG DELAYED RELEASE (DEPAKOTE) TAB PO SCH ×2 (08:21→20:26)
[2022-01-01] MEDS: ATENOLOL 25 MG (TENORMIN) TAB PO SCH (08:21)
[2022-01-01] MEDS: ASPIRIN E.C. 81 MG (ECOTRIN) TAB PO SCH (08:22)
[2022-01-01] MEDS: LOSARTAN 50 MG (COZAAR) TAB PO SCH (08:22)
[2022-01-01] MEDS: IBUPROFEN 600 MG (MOTRIN) TAB PO SCH ×2 (08:22→17:32)
[2022-01-01] MEDS: ENOXAPARIN 60 MG/0.6 ML (LOVENOX) SYR SC SCH ×2 (08:23→20:26)
[2022-01-01] MEDS: PREGABALIN 150 MG (LYRICA) CAPSULE PO SCH ×2 (08:23→20:26)
[2022-01-01] MEDS: TRINTELLIX 20 MG TAB PO SCH (08:24)
[2022-01-01] MEDS: REXULTI 2 MG PO SCH (08:24)
[2022-01-01] MEDS ORDERED: NON-FORMULARY MEDICATION 1 EA EA (Atenolol 50 MG) PO SCH (09:00)
--- NOTE | 2022-01-01 09:50 | Physical Therapy Daily Note ---
PT Daily Note-Current Subjective Patient agrees to PT. Pain Numeric Pain Scale: 8 Location: Right Location Body Site: Knee Pain Description: Acute Mental Status Patient Orientation: Normal For Age Attachments: Polar Pack, IV Transfers SCALE: Activities may be completed with or without assistive devices. 9-Qqeerwrhes-ztuuecf completes the activity by him/herself with no assistance from a helper. 5-Set-up or Clean-up Assistance-helper sets up or cleans up; patient completes activity. [place] assists only prior to or following the activity. 4-Supervision or Touching Assistance-helper provides verbal cues and/or touching/steadying and/or contact guard assistance as patient completes activity. Assistance may be provided throughout the activity or intermittently. 3-Partial/Moderate Assistance-helper does LESS THAN HALF the effort. [place] lifts, holds or supports trunk or limbs, but provides less than half the effort. 2-Substantial/Maximal Assistance-helper does MORE THAN HALF the effort. [place] lifts or holds trunk or limbs and provides more than half the effort. 2-Kuuoqqnqu-egktri does ALL the effort. Patient does none of the effort to c omplete the activity. Or, the assistance of 2 or more helpers is required for the patient to complete the activity. If activity was not attempted, code reason: 7-Patient Refused. 9-Not Applicable-not attempted and the patient did not perform the activity before the current illness, exacerbation or injury. 10-Not Attempted due to Environmental Limitations-(lack of equipment, weather restraints, etc.). 88-Not Attempted due to Medical Conditions or Safety Concerns. Lying to Sitting/Side of Bed(Q: 6 Sit to Stand (QC): 4 Chair/Niy-us-Bpthj Xfer(QC): 4 Weight Bearing Right Lower Extremity: Right Weight Bearing/Tolerated Gait Training Distance: 200' Walk 10 feet (QC): 4 Walk 50 ft with 2 Turns(QC): 4 Walk 150 ft (QC): 4 Gait Assistive Device: FWW slow, antalgic, reciprocal pattern Exercises Supine Ex: Ankle pumps, Quad Set, Heel Slides, Straight leg raise Supine Reps: 15 Seated Therapy Exercises: Long arc quads Seated Reps: 15 Assessment Patient tolerated treatment well and is up in recliner with needs met. Patient instructed to perform exercises PRN independently. Plan to dismiss to home tomorrow after PT. PT Recreation Specialist Goals Recreation Specialist Goals PT Care Home Goals Time Frame: Jan 07, 2022 Roll Left & Right (QC): 6 Sit to Lying (QC): 6 Lying-Sitting on Side/Bed(QC): 6 Sit to Stand (QC): 6 Chair/Xdt-aj-Rvtua Xfer(QC): 6 Walk 10 feet (QC): 6 Walk 50ft with 2 Turns (QC): 6 Walk 150 ft (QC): 6 PT Plan Treatment/Plan Treatment Plan: Continue Plan of Care Treatment Plan: Bed Mobility, Education, Functional Activity Laura, Functional Strength, Gait, Safety, Therapeutic Exercise, Transfers Treatment Duration: Jan 07, 2022 Frequency: 11 times per week Estimated Hrs Per Day: .25 hour per day Patient and/or Family Agrees t: Yes Time/GCodes Time In: 810 Time Out: 836 Total Billed Treatment Time: 26 Total Billed Treatment 1 visit EX 14 min GT 12 min MAJOR ALONZO PT Jan 01, 2022 09:50
[2022-01-01] MEDS: FLUTICASONE/VILANTEROL 100 MCG 14'S (BREO) IH SCH (10:14)
--- NOTE | 2022-01-01 10:40 | Occupational Therapy Eval ---
OT Evaluation-General/PLF Medical Diagnosis Admission Date Dec 31, 2021 at 05:45 Medical Diagnosis: right TKA Onset Date: Dec 31, 2021 Therapy Diagnosis Therapy Diagnosis: decreased ADL Status Height/Weight Height (Feet): 5 Height (Inches): 6.00 Weight (Pounds): 270 Weight (Ounces): 0 Precautions Precautions/Isolations: Fall Prevention, Standard Precautions Referral Physician: Aric Referral Reason: Evaluation/Treatment Medical History Pertinent Medical History: Back Injury Additional Medical History HTN, anxiety, Leg tremor, asthma, back pain, COPD, neck pain, chronic pain, L TKA, R foot surgery Current History s/p R TKA 12/31/21 Social History Current Living Status: Alone Entry Into Home: Ramp ADL-Prior Level of Function SCALE: Activities may be completed with or without assistive devices. 2-Vppgfhragp-fslepag completes the activity by him/herself with no assistance from a helper. 5-Set-up or Clean-up Assistance-helper sets up or cleans up; patient completes activity. [place] assists only prior to or following the activity. 4-Supervision or Touching Assistance-helper provides verbal cues and/or touching/steadying and/or contact guard assistance as patient completes activity. Assistance may be provided throughout the activity or intermittently. 3-Partial/Moderate Assistance-helper does LESS THAN HALF the effort. [place] lifts, holds or supports trunk or limbs, but provides less than half the effort. 2-Substantial/Maximal Assistance-helper does MORE THAN HALF the effort. [place] lifts or holds trunk or limbs and provides more than half the effort. 8-Zjyheneju-ckhovh does ALL the effort. Patient does none of the effort to complete the activity. Or, the assistance of 2 or more helpers is required for the patient to complete the activity. If activity was not attempted, code reason: 7-Patient Refused. 9-Not Applicable-not attempted and the patient did not perform the activity before the current illness, exacerbation or injury. 10-Not Attempted due to Environmental Limitations-(lack of equipment, weather restraints, etc.). 88-Not Attempted due to Medical Conditions or Safety Concerns. ADL PLOF Comments Pt reports IND wiht ADLs and functional mobility at PLOF, using SPC PRN. He has sons who live close by and check in on him throughout the day, and they plan on assisting him with dressing and bathing at discharge. Self Care: Independent Functional Cognition: Independent OT Current Status Subjective Pt up in recliner, agreeable to OT Tx. Pt reports his family is going to assist him at discharge, and doesn't have concerns with his ability to complete ADLs at this time, pt declines further OT services. Mental Status/Objective Patient Orientation: Person, Place, Situation Attachments: Oxygen, Polar Pack Current Upper Extremity ROM WFL Upper Extremity Strength WFL ADL-Treatment Eating (QC): 6 (Per pt report) Oral Hygiene (QC): 5 (Per clincial judgment) On/Off Footwear (QC): 7 Toileting Hygiene (QC): 7 Other Treatments Pt in recliner, agreeable to OT Tx. Pt provided information about PLOF and home set up. Pt declines completing ADLs at this time due to pain in knee. OT asked pt how he plans to complete at home, and he reports his sons will help him, and they helped him after his last knee replacement a couple of years ago. OT educated pt on benefit of tub/transfer bench, he verbalized understanding but indicates he plans to take sponge baths if needed until able to get in/out of tub. Education OT Patient Education: Correct positioning, Energy conservation, Modified ADL techniques, Progress toward Goal/Update tx plan, Purpose of tx/functional activities, Rehab process Teaching Recipient: Patient Teaching Methods: Discussion Response to Teaching: Verbalize Understanding OT Group Home Goals Dye Padder Operator Goals 1=Demonstrate adherence to instructed precautions during ADL tasks. 2=Patient will verbalize/demonstrate understanding of assistive devices/modifica tions for ADL. 3=Patient will improve strength/tolerance for activity to enable patient to perform ADL's. OT Education/Plan Problem List/Assessment Assessment: No Skilled OT Needs ID'd No skilled OT services indicated at this time, as pt feels like he is at PLOF with most ADLs and his son will assist him with showering and LB dressing at discharge. Pt declined further OT services at this time. d/c from OT. Discharge Recommendations Plan/Recommendations: Discharge/Goals Met Equpiment Recommendations-D/C: Extended Bath Bench Treatment Plan/Plan of Care Patient would benefit from OT for education, treatment and training to promote independence in ADL's, mobility, safety and/or upper extremity function for ADL's. Plan of Care: ADL Retraining, Functional Mobility, Orthotic Fitting/Training Treatment Duration: Jan 01, 2022 Frequency: 1 time per week (eval only) Rehab Potential: Fair Time/GCodes Start Time: 09:35 Stop Time: 09:44 Total Time Billed (hr/min): 9 Billed Treatment Time 1, GARIMA QUICK OT Jan 01, 2022 10:40
--- NOTE | 2022-01-01 11:04 | Progress Note ---
Subjective Subjective/Events-last exam Afebrile, no acute events, states he is feeling okay, denies shortness of breath beyond baseline. Objective Exam Last Set of Vital Signs Vital Signs Date Time Temp Pulse Resp B/P (MAP) Pulse Ox O2 Delivery O2 Flow Rate FiO2 01/01/22 08:38 Room Air 01/01/22 08:15 37.5 87 20 127/73 (91) 94 2.00 Capillary Refill : I&O Intake and Output 01/01/22 00:00 Intake Total 3715 ml Balance 3715 ml Intake Oral 1240 ml IV Total 2475 ml # Voids 2 Daily Weight Change No General: Alert, No Acute Distress Lungs: Clear to Auscultation, Normal Air Movement Heart: Regular Rate, No Murmurs Extremities: Other (compression stockings in place, no apparent edema) Neuro: Normal Speech Psych/Mental Status: Mood NL Results/Procedures Lab Laboratory Tests 01/01/22 05:25: Hemoglobin 13.2L, Hematocrit 40 Assessment/Plan Assessment/Plan (1) Status post right knee replacement Status: Acute Assessment & Plan: Management per Dr. Araiza. (2) Postoperative hypoxia Status: Acute Assessment & Plan: Encourage IS, mobilization as directed by Dr. Araiza. (3) Depression Status: Chronic Assessment & Plan: Resume home medications. Qualifiers: (4) Chronic pain Status: Chronic Assessment & Plan: Resume home meds (5) Anxiety Status: Chronic Assessment & Plan: Resume home medications (6) Hypertension Status: Chronic Assessment & Plan: Resume home medications Qualifiers: Qualified Codes: I10 - Essential (primary) hypertension (7) [place] on CPAP Assessment & Plan: Brought home CPAP, encourage use DEVI MARSHALL MD Jan 01, 2022 11:04
--- NOTE | 2022-01-01 15:01 | Physical Therapy Daily Note ---
PT Daily Note-Current Subjective Patient agrees to PT. Pain meds had been issued per patient report. Pain Numeric Pain Scale: 7 Location: Right Location Body Site: Knee Pain Description: Acute Mental Status Patient Orientation: Normal For Age Attachments: IV Transfers SCALE: Activities may be completed with or without assistive devices. 8-Avuhnwffbg-uljnqqi completes the activity by him/herself with no assistance from a helper. 5-Set-up or Clean-up Assistance-helper sets up or cleans up; patient completes activity. [place] assists only prior to or following the activity. 4-Supervision or Touching Assistance-helper provides verbal cues and/or touching/steadying and/or contact guard assistance as patient completes activity. Assistance may be provided throughout the activity or intermittently. 3-Partial/Moderate Assistance-helper does LESS THAN HALF the effort. [place] lifts, holds or supports trunk or limbs, but provides less than half the effort. 2-Substantial/Maximal Assistance-helper does MORE THAN HALF the effort. [place] lifts or holds trunk or limbs and provides more than half the effort. 2-Bwnrojkjd-eguyed does ALL the effort. Patient does none of the effort to complete the activity. Or, the assistance of 2 or more helpers is required for the patient to complete the activity. If activity was not attempted, code reason: 7-Patient Refused. 9-Not Applicable-not attempted and the patient did not perform the activity before the current illness, exacerbation or injury. 10-Not Attempted due to Environmental Limitations-(lack of equipment, weather restraints, etc.). 88-Not Attempted due to Medical Conditions or Safety Concerns. Sit to Lying (QC): 6 Sit to Stand (QC): 6 Chair/Tuo-ys-Vncqp Xfer(QC): 6 Weight Bearing Right Lower Extremity: Right Weight Bearing/Tolerated Gait Training Distance: 275' Walk 10 feet (QC): 5 Walk 50 ft with 2 Turns(QC): 5 Walk 150 ft (QC): 5 Gait Assistive Device: FWW slow, antalgic, reciprocal pattern Exercises Supine Ex: Ankle pumps, Quad Set, Heel Slides, Straight leg raise Supine Reps: 15 Seated Therapy Exercises: Long arc quads Seated Reps: 15 Assessment Patient improving with treatment plan. Educated on importance of pain medication and progression with therapy and rehab of TKR. Patient voices understanding. Plan dismissal tomorrow with home care. PT Detention Goals Detention Goals PT Detention Goals Time Frame: Jan 07, 2022 Roll Left & Right (QC): 6 Sit to Lying (QC): 6 Lying-Sitting on Side/Bed(QC): 6 Sit to Stand (QC): 6 Chair/Oae-cq-Pkztb Xfer(QC): 6 Walk 10 feet (QC): 6 Walk 50ft with 2 Turns (QC): 6 Walk 150 ft (QC): 6 PT Plan Treatment/Plan Treatment Plan: Continue Plan of Care Treatment Plan: Bed Mobility, Education, Functional Activity Laura, Functional Strength, Gait, Safety, Therapeutic Exercise, Transfers Treatment Duration: Jan 07, 2022 Frequency: 11 times per week Estimated Hrs Per Day: .25 hour per day Patient and/or Family Agrees t: Yes Time/GCodes Time In: 1330 Time Out: 1400 Total Billed Treatment Time: 30 Total Billed Treatment 1 visit EX 16 min GT 14 min MAJOR ALONZO PT Jan 01, 2022 15:01
[2022-01-01] MEDS: CYCLOBENZAPRINE 10 MG (FLEXERIL) TAB PO SCH (20:26)
[2022-01-01] MEDS: MONTELUKAST 10 MG (SINGULAIR) TAB PO SCH (20:26)
--- NOTE | 2022-01-01 22:24 | DISCHARGE SUMMARY ---
DATE OF SERVICE: DIAGNOSES: 1. Right knee primary osteoarthritis. 2. Hypertension. 3. Anxiety. 4. Asthma. 5. Leg tremors. 6. Back pain. 7. Chronic obstructive pulmonary disease. PROCEDURE: Right total knee arthroplasty. SUMMARY: The patient is a 56-year-old gentleman who underwent a right total knee arthroplasty on the day of admission. Postoperatively, he did well. At time of discharge, his wound was clean and dry, had no calf tenderness. Negative Homans sign. CONDITION AT DISCHARGE: Good. DISCHARGE DIET: Regular. FOLLOWUP: Followup is in three weeks. Home physical therapy has been arranged. DISCHARGE MEDICATIONS: Home medications, Percocet as needed for pain and aspirin one per day for 30 days. ACTIVITIES: Weightbearing as tolerated with a walker. Job ID: [id number] DocumentID: [id number] Dictated Date: 01/01/2022 17:57:07 Supervisor Cabinetmaker Date: 01/01/2022 22:24:10 Dictated By: RENETTA GÓMEZ MD
[2022-01-02] MEDS: NS IV 1000 ML 1,000 ML IV SCH (01:25)
[2022-01-02 03:56] VITALS: BP 136/81
[2022-01-02] MEDS: oxyCODONE/APAP 5/325MG (PERCOCET 5) TABLET PO PRN ×2 (04:22→07:41)
[2022-01-02 06:38] LABS: HEMOGLOBIN 13.3 g/dL (13.3-17.7)
--- NOTE | 2022-01-02 07:04 | Progress Note ---
Standard Progress Note Progress Notes/Assess & Plan Date Seen by a Provider: Jan 02, 2022 Time Seen by a Provider: 07:03 Progress/Assessment & Plan post op check no complaints readiographs--HW well positioned without fracture RLE--intact DF and PF of toes and ankle intact snesation to light touch throughout brisk cap refill with 2 plus DP pulse s/p R TKA mobilize as able Final Diagnosis no complaints Vital Signs Date Time Temp Pulse Resp B/P (MAP) Pulse Ox O2 Delivery O2 Flow Rate FiO2 01/02/22 05:34 20 01/02/22 03:56 36.9 91 18 136/81 (99) 94 NIV CPAP 2.00 01/02/22 02:11 91 NIV CPAP 1.00 01/01/22 23:29 37.0 88 16 129/80 (96) 93 NIV CPAP 2.00 01/01/22 22:34 91 NIV CPAP 1.00 01/01/22 20:07 36.6 83 16 125/70 (88) 95 Nasal Cannula 2.00 01/01/22 20:00 Room Air 01/01/22 19:14 90 Nasal Cannula 1.00 01/01/22 17:40 20 01/01/22 15:30 37.2 89 20 120/66 (84) 93 Nasal Cannula 2.00 01/01/22 14:14 92 Nasal Cannula 1.00 01/01/22 12:31 36.7 83 22 133/83 (100) 94 Nasal Cannula 2.00 01/01/22 08:38 Room Air 01/01/22 08:15 37.5 87 20 127/73 (91) 94 Nasal Cannula 2.00 I & O 01/02/22 07:00 Intake Total 2410 ml Balance 2410 ml Laboratory Tests Test 01/02/22 06:09 Range/Units Hemoglobin 13.3 13.3-17.7 g/dL Hematocrit 40 40-54 % R knee incision clean and dry no calf tenderness s/p RTKA doing we\ll DC after PT today RENETTA GÓMEZ MD Jan 02, 2022 07:04
[2022-01-02] MEDS: FLUTICASONE/VILANTEROL 100 MCG 14'S (BREO) IH SCH (07:13)
[2022-01-02 08:07] VITALS: BP 125/73
[2022-01-02] MEDS: IBUPROFEN 600 MG (MOTRIN) TAB PO SCH (08:45)
[2022-01-02] MEDS: PREGABALIN 150 MG (LYRICA) CAPSULE PO SCH (08:45)
[2022-01-02] MEDS: ATENOLOL 25 MG (TENORMIN) TAB PO SCH (08:45)
[2022-01-02] MEDS: LOSARTAN 50 MG (COZAAR) TAB PO SCH (08:45)
[2022-01-02] MEDS: ENOXAPARIN 60 MG/0.6 ML (LOVENOX) SYR SC SCH (08:46)
[2022-01-02] MEDS: ASPIRIN E.C. 81 MG (ECOTRIN) TAB PO SCH (08:46)
[2022-01-02] MEDS: SENNA W/DOCUSATE (SENOKOT S) TABLET PO SCH (08:46)
[2022-01-02] MEDS: DIVALPROEX 250 MG DELAYED RELEASE (DEPAKOTE) TAB PO SCH (08:46)
[2022-01-02] MEDS: REXULTI 2 MG PO SCH (08:46)
[2022-01-02] MEDS: TRINTELLIX 20 MG TAB PO SCH (08:47)
--- NOTE | 2022-01-02 09:27 | Physical Therapy Daily Note ---
PT Daily Note-Current Subjective Patient is very agreeable to participate with therapy. Pain Numeric Pain Scale: 5-Moderate Pain Location: Right Location Body Site: Knee Pain Description: Heavy Section J - Health Conditions 1. Rarely or not at all 2. Occasionally 3. Frequently 4. Almost constantly 8. Unable to answer Pain Effect on Sleep: 2 Pain Interference with Therapy: 2 Pain Interference w/Day-to-Day: 2 Mental Status Patient Orientation: Normal For Age Transfers SCALE: Activities may be completed with or without assistive devices. 5-Mnluxtafpg-nlxgdps completes the activity by him/herself with no assistance from a helper. 5-Set-up or Clean-up Assistance-helper sets up or cleans up; patient completes activity. [place] assists only prior to or following the activity. 4-Supervision or Touching Assistance-helper provides verbal cues and/or touch ing/steadying and/or contact guard assistance as patient completes activity. Assistance may be provided throughout the activity or intermittently. 3-Partial/Moderate Assistance-helper does LESS THAN HALF the effort. [place] lifts, holds or supports trunk or limbs, but provides less than half the effort. 2-Substantial/Maximal Assistance-helper does MORE THAN HALF the effort. [place] lifts or holds trunk or limbs and provides more than half the effort. 9-Cjnyiliva-optvgk does ALL the effort. Patient does none of the effort to complete the activity. Or, the assistance of 2 or more helpers is required for the patient to complete the activity. If activity was not attempted, code reason: 7-Patient Refused. 9-Not Applicable-not attempted and the patient did not perform the activity before the current illness, exacerbation or injury. 10-Not Attempted due to Environmental Limitations-(lack of equipment, weather restraints, etc.). 88-Not Attempted due to Medical Conditions or Safety Concerns. Sit to Stand (QC): 6 Weight Bearing Right Lower Extremity: Right Weight Bearing/Tolerated Gait Training Distance: 275' Walk 10 feet (QC): 6 Walk 50 ft with 2 Turns(QC): 6 Walk 150 ft (QC): 6 Gait Assistive Device: FWW slow, steady, antalgic gait sequence Exercises Seated Therapy Exercises: Ankle pumps, Long arc quads Seated Reps: 15 (x 2 sets) Assessment Patient remains up in recliner with will dismiss to home on this date. PT instructed patient to perform HEP issued by physician at preop. Patient voices understanding. right knee flexion 90 degrees in sit. PT Senior Living Goals Senior Living Goals PT [place] Goals Time Frame: Jan 07, 2022 Roll Left & Right (QC): 6 Sit to Lying (QC): 6 Lying-Sitting on Side/Bed(QC): 6 Sit to Stand (QC): 6 Chair/Qmf-sh-Hkkmr Xfer(QC): 6 Walk 10 feet (QC): 6 Walk 50ft with 2 Turns (QC): 6 Walk 150 ft (QC): 6 PT Plan Treatment/Plan Treatment Plan: Discontinue PT, goals met Treatment Plan: Bed Mobility, Education, Functional Activity Laura, Functional Strength, Gait, Safety, Therapeutic Exercise, Transfers Treatment Duration: Jan 07, 2022 Frequency: 11 times per week Estimated Hrs Per Day: .25 hour per day Patient and/or Family Agrees t: Yes Time/GCodes Time In: 742 Time Out: 754 Total Billed Treatment Time: 12 Total Billed Treatment 1 visit FA 12 min MAJOR ALONZO PT Jan 02, 2022 09:27
[2022-01-02 11:38] VITALS: BP 120/65
[2022-01-02 12:45] VITALS: BP 120/65
== END 2022-01-02 12:45 | disposition home health service (06) | DRG 470 ==
LOC: 4TH 05:45 → SURG 05:46 → 4TH 10:27
PROVIDERS: ADMIT Orthopaedic Surgery; ATTEND Orthopaedic Surgery
PROC: 0SRC0J9 Replacement of Right Knee Joint with Synthetic Substitute, Cemented, Open Approach (ICD-10-PCS; principal; 2021-12-31 07:34)
PROC: 5A09357 Assistance with Respiratory Ventilation, Less than 24 Consecutive Hours, Continuous Positive Airway Pressure (ICD-10-PCS; 2022-01-01)
DX: M17.11 Unilateral primary osteoarthritis, right knee (principal); Z96.652 Presence of left artificial knee joint; I10 Essential (primary) hypertension; F41.9 Anxiety disorder, unspecified; J44.9 Chronic obstructive pulmonary disease, unspecified; G89.29 Other chronic pain; M54.2 Cervicalgia; Z87.891 Personal history of nicotine dependence; F32.A Depression, unspecified; H40.9 Unspecified glaucoma; H35.30 Unspecified macular degeneration; R09.02 Hypoxemia; G47.33 Obstructive sleep apnea (adult) (pediatric)
CPT/HCPCS: 36415; 73560; 85014; 85018; 86850; 86900; 86901; 94640; 94664; 94760